=== PATIENT | male | born 1945 | race Caucasian/White ===

== ENCOUNTER 2016-05-31 20:24 | Inpatient (IN) | payer MEDICARE ==
[2016-05-31] MEDS ORDERED: SODIUM CHLORIDE 0.9% 1,000 ML IV STA ×2 (20:38)
[2016-05-31] MEDS ORDERED: IPRATROPIUM 0.5 MG/2.5 ML NEBU INHALATION STA (20:38)
[2016-05-31] MEDS ORDERED: methylPREDNISolone SOD SUCCI 125 MG/2 ML VIAL IV STA (20:38)
[2016-05-31] MEDS ORDERED: ALBUTEROL NEBULIZED 2.5 MG/3 ML INHALATION STA (20:38)
[2016-05-31] MEDS ORDERED: LORazepam 2 MG/ML SYRINGE IV STA (20:38)
--- NOTE | 2016-05-31 20:55 | ED ---
General Adult HPI - General Chief complaint: Shortness of Breath Stated complaint: ERIC coughing up blood Time Seen by Provider: 05/31/16 20:36 Source: patient, RN notes reviewed, old records reviewed Mode of arrival: wheelchair Limitations: no limitations - History of Present Illness Initial comments: This is a 8-year-old male the ER for evaluation. This patient presented here for evaluation of chest pain. Patient does have severe chest pain feels like prior heart attacks. Patient has strong cardiac history with diabetes hypertension or cholesterol. Nourse appears cough or congestion, no recent stressful history, no significant recent hospitalizations. Patient also complaining of difficulty breathing 3-4 days of difficulty breathing with cough , severe cough to the point is coughing blood, dizziness and weakness with ambulation - Related Data Home Medications Medication Instructions Recorded Confirmed Acetaminophen Tab [Tylenol Tab] 650 mg PO Q6H PRN 05/31/16 05/31/16 Albuterol Nebulized [Ventolin 2.5 mg INHALATION RT-Q6H PRN 05/31/16 05/31/16 Nebulized] Aspirin EC [Ecotrin Low Dose] 81 mg PO HS 05/31/16 05/31/16 Atorvastatin Calcium [Lipitor] 10 mg PO DAILY 05/31/16 05/31/16 Calcium Acetate [Phoslo] 667 mg PO TID-W/MEALS 05/31/16 05/31/16 DULoxetine HCL [Cymbalta] 60 mg PO DAILY 05/31/16 05/31/16 Doxercalciferol [Hectorol] 0.5 mcg PO HS 05/31/16 05/31/16 Finasteride [Proscar] 5 mg PO DAILY 05/31/16 05/31/16 Fluticasone/Salmeterol [Advair 1 puff INHALATION RT-BID 05/31/16 05/31/16 100-50 Diskus] Furosemide [Lasix] 40 mg PO BID 05/31/16 05/31/16 HYDROcodone/APAP 5-325MG [[place] 1 tab PO Q6HR PRN 05/31/16 05/31/16 5-325] Insuln Asp Prt/Insulin Aspart See Protocol SQ-PUMP CONTINUOUS 05/31/16 05/31/16 [NovoLOG MIX 70-30 VIAL] Latanoprost [Xalatan 0.005%] 1 drop LEFT EYE HS 05/31/16 05/31/16 Montelukast [Singulair] 10 mg PO HS 05/31/16 05/31/16 [place]-3 Acid Ethyl Esters [Lovaza] 1 gm PO BID 05/31/16 05/31/16 Tiotropium 18 Mcg/Puff [Spiriva] 1 cap INHALATION RT-DAILY PRN 05/31/16 05/31/16 amLODIPine [Norvasc] 10 mg PO DAILY 05/31/16 05/31/16 clonazePAM [KlonoPIN] 1 mg PO HS PRN 05/31/16 05/31/16 hydrALAZINE HCL 75 mg PO BID 05/31/16 05/31/16 Allergies Allergy/AdvReac Type Severity Reaction Status Date / Time Sulfa (Sulfonamide Allergy Rash/Hives Verified 05/31/16 21:38 Antibiotics) Review of Systems ROS Statement: Those systems with pertinent positive or pertinent negative responses have been documented in the HPI. ROS Other: All systems not noted in ROS Statement are negative. Past Medical History Past Medical History: COPD, Diabetes Mellitus, Hypertension, Renal Disease Additional Past Medical History / Comment(s): BPH, History of Any Multi-Drug Resistant Organisms: None Reported Past Surgical History: Heart Catheterization, Hernia Repair, Orthopedic Surgery Additional Past Surgical History / Comment(s): fistula 05/29 Past Psychological History: No Psychological Hx Reported Smoking Status: Former smoker Past Alcohol Use History: Occasional Past Drug Use History: None Reported General Exam Limitations: no limitations General appearance: alert, anxious, in distress Head exam: Present: atraumatic, normocephalic, normal inspection Eye exam: Present: normal appearance, PERRL, EOMI. Absent: scleral icterus, conjunctival injection, periorbital swelling ENT exam: Present: normal exam, mucous membranes moist Neck exam: Present: normal inspection. Absent: tenderness, meningismus, lymphadenopathy Respiratory exam: Present: normal lung sounds bilaterally, respiratory distress , wheezes, accessory muscle use, decreased breath sounds, prolonged expiratory. Absent: rales, rhonchi, stridor Cardiovascular Exam: Present: regular rate, normal rhythm, normal heart sounds. Absent: systolic murmur, diastolic murmur, rubs, gallop, clicks GI/Abdominal exam: Present: soft, normal bowel sounds. Absent: distended, tenderness, guarding, rebound, rigid Extremities exam: Present: normal inspection, full ROM, normal capillary refill. Absent: tenderness, pedal edema, joint swelling, calf tenderness Back exam: Present: normal inspection Neurological exam: Present: alert, oriented X3, CN II-XII intact Psychiatric exam: Present: normal affect, normal mood Skin exam: Present: warm, dry, intact, normal color. Absent: rash Course Vital Signs 05/31/16 05/31/16 05/31/16 20:27 21:00 21:19 Temperature 97.9 F 98.1 F Pulse Rate 96 88 90 Respiratory 24 22 Rate Blood Pressure 185/78 176/79 O2 Sat by Pulse 89 L 90 L Oximetry 05/31/16 05/31/16 05/31/16 21:36 22:05 22:19 Temperature Pulse Rate 88 90 90 Respiratory Rate Blood Pressure O2 Sat by Pulse Oximetry 05/31/16 05/31/16 22:35 23:00 Temperature 98.9 F Pulse Rate 91 90 Respiratory 24 22 Rate Blood Pressure 167/74 157/72 O2 Sat by Pulse 93 L 92 L Oximetry EKG Findings - EKG Comments: EKG Findings:: EKG shows sinus rhythm rate of 89, pr 218, QRS 108, QTc 455 Medical Decision Making - Medical Decision Making 71 male here for evaluation of multiple complaints, severe shortness of breath assumably on top of increased pleural effusion, renal failure, fluid overload, pneumonia. Patient be admitted for hypoxic respiratory failure and monitoring of cardio vascular collapse - Lab Data Result diagrams: 05/31/16 21:01 05/31/16 21:01 Lab Results 05/31/16 05/31/16 05/31/16 Range/Units 21:00 21:01 21:01 WBC 12.2 H (3.8-10.6) k/uL RBC 2.91 L (4.30-5.90) m/uL Hgb 9.0 L (13.0-17.5) gm/dL Hct 27.1 L (39.0-53.0) % MCV 93.2 (80.0-100.0) fL MCH 31.0 (25.0-35.0) pg MCHC 33.3 (31.0-37.0) g/dL RDW 15.0 (11.5-15.5) % Plt Count 223 (150-450) k/uL Neutrophils % 83 % Lymphocytes % 7 % Monocytes % 8 % Eosinophils % 1 % Basophils % 0 % Neutrophils # 10.1 H (1.3-7.7) k/uL Lymphocytes # 0.9 L (1.0-4.8) k/uL Monocytes # 0.9 (0-1.0) k/uL Eosinophils # 0.1 (0-0.7) k/uL Basophils # 0.0 (0-0.2) k/uL PT (9.0-12.0) sec INR (<1.1) APTT (22.0-30.0) sec D-Dimer (<0.60) mg/L FEU Sodium (137-145) mmol/L Potassium (3.5-5.1) mmol/L Chloride (98-107) mmol/L Carbon Dioxide (22-30) mmol/L Anion Gap mmol/L BUN (9-20) mg/dL Creatinine (0.66-1.25) mg/dL Est GFR (MDRD) Af Amer (>60 ml/min/1.73 sqM) Est GFR (MDRD) Non-Af (>60 ml/min/1.73 sqM) Glucose (74-99) mg/dL Plasma Lactic Acid Edmundo 0.9 (0.7-2.0) mmol/L Calcium (8.4-10.2) mg/dL Magnesium (1.6-2.3) mg/dL Total Bilirubin (0.2-1.3) mg/dL AST (17-59) U/L ALT (21-72) U/L Alkaline Phosphatase (38-126) U/L Total Creatine Kinase 138 (55-170) U/L CK-MB (CK-2) 7.6 H* (0.0-2.4) ng/mL CK-MB (CK-2) Rel Index 5.5 Troponin I 0.031 (0.000-0.034) ng/mL NT-Pro-B Natriuret Pep pg/mL Total Protein (6.3-8.2) g/dL Albumin (3.5-5.0) g/dL 05/31/16 05/31/16 05/31/16 Range/Units 21:01 21:01 21:01 WBC (3.8-10.6) k/uL RBC (4.30-5.90) m/uL Hgb (13.0-17.5) gm/dL Hct (39.0-53.0) % MCV (80.0-100.0) fL MCH (25.0-35.0) pg MCHC (31.0-37.0) g/dL RDW (11.5-15.5) % Plt Count (150-450) k/uL Neutrophils % % Lymphocytes % % Monocytes % % Eosinophils % % Basophils % % Neutrophils # (1.3-7.7) k/uL Lymphocytes # (1.0-4.8) k/uL Monocytes # (0-1.0) k/uL Eosinophils # (0-0.7) k/uL Basophils # (0-0.2) k/uL PT 10.3 (9.0-12.0) sec INR 1.0 (<1.1) APTT 22.3 (22.0-30.0) sec D-Dimer 2.28 H (<0.60) mg/L FEU Sodium 137 (137-145) mmol/L Potassium 5.5 H (3.5-5.1) mmol/L Chloride 105 (98-107) mmol/L Carbon Dioxide 13 L (22-30) mmol/L Anion Gap 19 mmol/L BUN 105 H* (9-20) mg/dL Creatinine 7.54 H* (0.66-1.25) mg/dL Est GFR (MDRD) Af Amer 9 (>60 ml/min/1.73 sqM) Est GFR (MDRD) Non-Af 7 (>60 ml/min/1.73 sqM) Glucose 239 H (74-99) mg/dL Plasma Lactic Acid Edmundo (0.7-2.0) mmol/L Calcium 8.6 (8.4-10.2) mg/dL Magnesium 1.6 (1.6-2.3) mg/dL Total Bilirubin 0.5 (0.2-1.3) mg/dL AST 36 (17-59) U/L ALT 30 (21-72) U/L Alkaline Phosphatase 108 (38-126) U/L Total Creatine Kinase (55-170) U/L CK-MB (CK-2) (0.0-2.4) ng/mL CK-MB (CK-2) Rel Index Troponin I (0.000-0.034) ng/mL NT-Pro-B Natriuret Pep 4150 pg/mL Total Protein 5.9 L (6.3-8.2) g/dL Albumin 3.5 (3.5-5.0) g/dL - Radiology Data Radiology results: report reviewed (Chest x-ray tooth 2 view does show positivepleural fusion, right-sided pleural effusion, left-sided infiltrate, pulmonary edema.), image reviewed Critical Care Time Critical Care Time: Yes Total Critical Care Time: 31 Disposition Clinical Impression: Acute pulmonary edema, ARF (acute renal failure), Acute exacerbation of chronic obstructive airways disease, Hypoxia, Pneumonia, Pleural effusion, right Disposition: ADMITTED IP TO THIS HOSP Condition: Fair
[2016-05-31] MEDS ORDERED: MORPHINE SULFATE 4 MG/ML SYRINGE IVP STA (20:59)
[2016-05-31 21:16] LABS: Basophils % (A) 0 %; CH 30.7; CHCM 33.1; Eosinophils # (A) 0.1 k/uL (0-0.7); Eosinophils % (A) 1 %; HCT 27.1 % (39.0-53.0); HDW 2.83; Luc # (Auto) 0.16; Luc % (Auto) 1; Lymphocytes # (A) 0.9 k/uL (1.0-4.8); Lymphocytes % (A) 7 %; MCHC 33.3 g/dL (31.0-37.0); MCV 93.2 fL (80.0-100.0); Mean Platelet Volume 7.7; Monocytes # (A) 0.9 k/uL (0-1.0); Monocytes % (A) 8 %; Neutrophils # (A) 10.1 k/uL (1.3-7.7); Neutrophils % (A) 83 %; RBC 2.91 m/uL (4.30-5.90); WBC 12.2 k/uL (3.8-10.6); WBC (Perox) 13.17
[2016-05-31 21:25] LABS: Calcium 8.6 mg/dL (8.4-10.2); Magnesium 1.6 mg/dL (1.6-2.3); Potassium 5.5 mmol/L (3.5-5.1); Total Bilirubin 0.5 mg/dL (0.2-1.3); Total Protein 5.9 g/dL (6.3-8.2)
[2016-05-31 21:37] LABS: Partial Thromboplastin Time 22.3 sec (22.0-30.0); Prothrombin Time 10.3 sec (9.0-12.0)
[2016-05-31] MEDS ORDERED: PNEUMONIA PROTOCOL UTILIZED 1 EACH MISC PO PRN (21:40)
[2016-05-31 21:51] LABS: Troponin I 0.031 ng/mL (0.000-0.034)
[2016-05-31 21:55] LABS: Creatine Kinase MB 7.6 ng/mL (0.0-2.4)
--- NOTE | 2016-05-31 22:39 | XR ---
EXAMINATION TYPE: XR chest 2V DATE OF EXAM: 05/31/2016 10:27 PM COMPARISON: 04/27/2016 HISTORY: Difficulty breathing TECHNIQUE: Frontal and lateral views of the chest are obtained. FINDINGS: There is linear consolidation and atelectasis at the right lung base. Heart appears enlarg ed. There is no gross heart failure. There is blunting of right costophrenic angle. There are chest l devon. IMPRESSION: There is combined pleural fluid consolidation and atelectasis in the right lower lobe th at is new compared to last exam. No gross heart failure. There is probably a new minimal infiltrate a t the left lung base.
[2016-05-31] MEDS ORDERED: IPRATROPIUM-ALBUTEROL 3 ML NEB INHALATION PRN (23:34)
[2016-05-31] MEDS ORDERED: PIPERACILLIN-TAZOBACTAM 3.375 GM in DEXTROSE/WATER 1 50ML.BAG IVPB STA (23:34)
[2016-05-31] MEDS ORDERED: LEVOFLOXACIN 750MG-D5W PMX 750 MG in DEXTROSE/WATER 1 150ML.BAG IVPB STA (23:34)
[2016-06-01] MEDS: SODIUM CHLORIDE 0.9% 1,000 ML IV SCH ×3 (00:17→14:03)
[2016-06-01 00:43] VITALS: BMI 31.8
[2016-06-01 06:40] LABS: Glucose,Whole Blood 247 mg/dL (75-99)
[2016-06-01] MEDS: PIPERACILLIN-TAZOBACTAM 3.375 GM in DEXTROSE/WATER 1 50ML.BAG IVPB SCH ×2 (07:55→15:56)
[2016-06-01 08:57] LABS: Glucose,Whole Blood 293 mg/dL (75-99)
[2016-06-01] MEDS ORDERED: ACETAMINOPHEN TAB 325 MG TAB PO PRN (09:07)
[2016-06-01] MEDS ORDERED: clonazePAM 1 MG TAB PO PRN (09:07)
[2016-06-01] MEDS ORDERED: TIOTROPIUM 18 MCG/PUFF INHALER INHALATION PRN (09:07)
[2016-06-01] MEDS ORDERED: hydrALAZINE HCL 25 MG TAB PO SCH (09:15)
[2016-06-01] MEDS ORDERED: INSPUCOR MISCELLANE PRN (09:16)
[2016-06-01] MEDS ORDERED: INSULIN PUMP TARGET GLUCOSE 1 EACH MISC MISCELLANE PRN (09:16)
[2016-06-01] MEDS ORDERED: INSULIN PUMP BASAL RATES 1 EACH MISC MISCELLANE PRN (09:16)
[2016-06-01] MEDS ORDERED: INSULIN PUMP ACTIVE INSULIN 1 EACH MISC MISCELLANE PRN (09:16)
[2016-06-01] MEDS ORDERED: INSULIN LISPRO (humaLOG) 300 UNIT/3 ML VIAL SQ PRN (09:16)
[2016-06-01] MEDS: IPRATROPIUM-ALBUTEROL 3 ML NEB INHALATION SCH ×4 (09:23→20:20)
[2016-06-01] MEDS: INSULIN LISPRO (humaLOG) 300 UNIT/3 ML VIAL SQ SCH ×4 (09:36→22:28)
[2016-06-01 10:43] LABS: Glucose,Whole Blood 259 mg/dL (75-99)
[2016-06-01 11:45] LABS: Glucose,Whole Blood 248 mg/dL (75-99)
[2016-06-01] MEDS: CALCIUM ACETATE 667 MG CAP PO SCH ×2 (12:27→17:10)
[2016-06-01] MEDS: amLODIPine 10 MG TAB PO SCH (12:28)
[2016-06-01] MEDS ORDERED: INSULIN PUMP MEAL BOLUS 1 UNIT MISC MISCELLANE SCH (12:30)
--- NOTE | 2016-06-01 13:43 | XR ---
EXAMINATION TYPE: XR chest 2V DATE OF EXAM: 06/01/2016 1:38 PM COMPARISON: Shortness of breath HISTORY: 05/31/2016 FINDINGS: Heart is enlarged and there are subsegmental consolidation bilaterally with tiny effusion. Calcified lymph nodes in the hilum noted. Biapical pleural thickening noted. No overt failure. IMPRESSION: 1. Persistent bilateral lower lobe infiltrate and small effusion which demonstrates mild improvement compared to the prior exam.
[2016-06-01 13:59] LABS: Hemoglobin A1C 8.3 % (4.2-6.1)
[2016-06-01] MEDS: methylPREDNISolone SOD SUCCI 40 MG/ML 1 ML VIAL IV SCH ×2 (14:02→17:44)
--- NOTE | 2016-06-01 14:33 | FL ---
EXAMINATION TYPE: FL sniff test without CXR DATE OF EXAM: 06/01/2016 2:27 PM COMPARISON: NONE HISTORY: Elevated right hemidiaphragm FINDINGS: A total of 29 seconds of fluoroscopic time was utilized during the procedure and there wa s paradoxical movement upon inspiration and expiration of the diaphragm with no diagnostic evidence o f diaphragmatic paresis. IMPRESSION: 1. There is normal movement of the diaphragm upon inspiration and expiration.
--- NOTE | 2016-06-01 15:01 | CT ---
EXAMINATION TYPE: CT chest wo con DATE OF EXAM: 06/01/2016 2:40 PM COMPARISON: NONE HISTORY: 71-year-old male having trouble breathing, elevated right hemidiaphragm versus effusion. TECHNIQUE: Contiguous axial scanning of the without IV contrast. Coronal and sagittal reconstructions performed. CT DLP: 862 mGycm Automated exposure control for dose reduction was used. FINDINGS: The heart is upper limits of normal in size without pericardial effusion. Coronary vessel calcificati ons are present in remarkable for coronary artery disease. Aorta is normal caliber with conventional arch vessel branching anatomy. Scattered prominent but nonenlarged mediastinal lymph nodes measuring up to 9 mm in the right paratra cheal region and 1.4 cm in the subcarinal region. Calcified left hilar lymph nodes compatible with pr ior granulomatous disease. There are small right greater than left pleural effusions with prominent adjacent atelectasis and rashad e consolidation in the lower lobes as well. Calcified granuloma at the left base. No septal thickening. Slight elevation of the right hemidiaphragm. 5 mm pulmonary nodule right mid lung axial image 34 and 5 mm pulmonary nodule at the right base, axia l image 42. Visualized upper abdomen shows numerous calcified granulomas in the spleen and layering calculi in a nondistended gallbladder. Bones: Endplate spondylosis within the mid to lower thoracic spine. No osseous destructive process. IMPRESSION: 1. SMALL RIGHT GREATER THAN LEFT PLEURAL EFFUSIONS WITH PROMINENT ADJACENT ATELECTASIS AND/OR CONSOLI DATION. INFECTIOUS OR ASPIRATION PNEUMONITIS IS IN THE DIFFERENTIAL AND CLINICAL CORRELATION RECOMMEN DED. 2. A COUPLE 5 MM PULMONARY NODULES ON THE RIGHT. RECOMMEND 6, 12, 24 MONTH FOLLOW-UP EXAMS TO ENSURE STABILITY.
[2016-06-01 15:02] LABS: Glucose,Whole Blood 256 mg/dL (75-99)
[2016-06-01] MEDS ORDERED: INSULIN DETEMIR 100 UNIT/ML 10 ML VIAL SQ STA (15:09)
--- NOTE | 2016-06-01 15:11 | CONS ---
DATE OF CONSULTATION: 06/01/2016 HISTORY OF PRESENT ILLNESS: The patient is a 71-year-old male who is well known to our practice. The patient has end-stage renal disease, did have AV fistula put in 3 days ago on Saturday at [facility]. He said he did fine and was discharged home and since then he started to experience worsening shortness of breath, started to actually cough up sputum that was mixed with blood. According to his , he sounded bubbly. The patient had Vicodin for pain, which he stopped because he felt like it was making him loopy. Subsequently, patient came to the emergency room and did have a chest x-ray done, which does show some fluid overload and possible pneumonia and the patient was admitted for further evaluation and treatment. PAST MEDICAL HISTORY: Positive for hypertension, high cholesterol, diabetes mellitus, chronic obstructive pulmonary disease, end-stage renal disease, and BPH. PAST SURGICAL HISTORY: Positive for AV fistula, which was put in 3 days ago at [facility] to start hemodialysis, history of heart cath, hernia repair and orthopedic surgery on his right knee bursa area years ago. ALLERGIES INCLUDE SULFA. Medications the patient takes at home include: 1. Hydralazine 75 mg p.o. b.i.d. 2. Klonopin 1 mg p.o. q.h.s. p.r.n. 3. Norvasc 10 mg p.o. daily. 4. Spiriva 1 capsule inhaled daily p.r.n. 5. Lovaza 1 gram p.o. b.i.d. 6. Singulair 10 mg p.o. q.h.s. 7. Xalatan one drop in his left eye q.h.s. 8. NovoLog which patient had infused via insulin pump. 9. Hydrocodone 5/325, 1 tab p.o. every 6 hours p.r.n. 10. Lasix 40 mg p.o. b.i.d. 11. Advair 100/50, 1 puff b.i.d. 12. Proscar 5 mg p.o. daily. 13. Hectorol 0.5 mg p.o. q.h.s. 14. Cymbalta 60 mg p.o. daily. 15. PhosLo 667 mg p.o. t.i.d. with meals. 16. Lipitor 10 mg p.o. daily. 17. Ecotrin low dose 81 mg p.o. q.h.s. 18. Albuterol via nebulizer q.6 hours p.r.n. 19. Tylenol 650 mg p.o. q.6 hours p.r.n. SOCIAL HISTORY: The patient does have a history of smoking for 20+ years; quit 20 years ago. Drinks very little, almost no alcohol. Denies any illicit drug use. FAMILY HISTORY: Mother at the age of 96 with diabetes mellitus and heart problems. Father at the age of 76 from diabetes mellitus and heart problems. REVIEW OF SYSTEMS: GENERAL: Positive for fever and chills. HEENT: Negative for any headaches, dizziness or lightheadedness. Denies any acute visual changes. Denies any difficulty hearing. Denies any recent nosebleeds. Does complain of a sore throat. Denies any difficulty swallowing. RESPIRATORY: Positive for worsening shortness of breath with productive cough with hemoptysis. CARDIOVASCULAR: Negative for any chest pain or palpitations. GI: Negative for abdominal pain, nausea, vomiting, diarrhea or constipation. : Negative for dysuria or hematuria. The patient complains of frequent urination. ENDOCRINE: Positive for diabetes mellitus, negative for any thyroid disease. MUSCULOSKELETAL: Positive for arthritis. NEUROLOGIC: Negative for any seizures, numbness or tingling to the extremities. The patient denies neuropathy. PSYCHIATRIC: Positive for anxiety. PHYSICAL EXAMINATION: GENERAL: A pleasant 71-year-old male who is seen lying in bed, is awake and alert, is clearly short of breath. VITAL SIGNS: Temp is 99.1, heart rate is 88, respiratory rate is 20, blood pressure is 194/77, oxygen saturation 91% on 3 L O2 via nasal cannula. HEENT: Head is normocephalic, atraumatic. Pupils: Left pupil slightly bigger than the right. The patient has had laser surgery and cataract removal and previous eye surgeries. Ears and nose, no discharge is noted. Mouth: Moist mucous membranes. Mallampati is class IV. NECK: Short, thick, supple. Trachea is midline. HEART: S1 and S2 are heard. Not tachycardic. LUNGS: With decreased breath sounds, more so to the bilateral bases. ABDOMEN: Soft. Bowel sounds are heard, obese. EXTREMITIES: No edema to the lower extremities. The upper left extremity does have a dressing and does have some redness, bruising versus inflammation where the AV fistula was placed. NEUROLOGIC: The patient is awake, alert, oriented. LABS: White count is 12.2, hemoglobin is 9.0, hematocrit 27.1 with 223,000 platelets. PT is 10.3. INR is 1.0, PTT is 22.3. D-dimer is 2.28. Sodium is 137, potassium 5.5, chloride 105, CO2 is 13, anion gap is 19, BUN is 105, creatinine is 7.54. Glucose 239, hemoglobin A1c is 8.3. Venous lactic acid is 0.9. Calcium is 8.6. Magnesium is 1.6. Total bilirubin 0.5, AST is 36, ALT is 30, alk phos is 108. Total CK is 138, MB is 7.6, relative index 5.5. Troponin 0.031. BNP is 4150. Total protein 5.9. Albumin is 3.5. IMAGING: Chest x-ray shows combined pleural fluid consolidation and atelectasis in the right lower lobe that is now new compared to last examination. No gross heart failure. There is probably a new minimal infiltrate at the left lung base. A repeat chest x-ray this a.m. shows persistent bilateral lower lobe infiltrate and small effusion which demonstrates mild improvement compared to the prior exam. IMPRESSION: 1. Hypoxic respiratory failure. 2. Acute exacerbation of congestive heart failure. 3. Possible elevated right hemidiaphragm. 4. Acute renal failure with metabolic acidosis. 5. Diabetes mellitus. 6. Possible left lower lobe pneumonia. PLAN: Agree with current medications which have been reviewed. Will change the p.o. Lasix to IV. We will stop the IV fluids. Will check sniff test for further evaluation of the right hemidiaphragm as well as a CT of the chest with no contrast. Will stop the Symbicort and add Pulmicort 0.5 mg via nebulizer b.i.d. Will add GI and DVT prophylaxis. Continue the bronchodilators and nephrology is on consult for further evaluation of need for hemodialysis. The patient is also going to be seen by Infectious Disease. We will continue to follow the patient closely with you, making further changes as necessary. Thank you for the consultation.
[2016-06-01] MEDS ORDERED: SODIUM POLYSTYRENE SULFONATE 15 GM/60 ML BOTTLE PO STA (15:15)
[2016-06-01] MEDS ORDERED: INSULIN LISPRO (humaLOG) 300 UNIT/3 ML VIAL SQ ONE (15:18)
[2016-06-01] MEDS: PANTOPRAZOLE 40 MG TABLET PO SCH (15:56)
[2016-06-01] MEDS: hydrALAZINE HCL 25 MG TAB PO SCH ×2 (15:57→22:29)
--- NOTE | 2016-06-01 15:57 | P.HPIM ---
History of Present Illness H&P Date: 06/01/16 Chief Complaint: Shortness of breath and difficulty breathing Is a pleasant 71-year-old gentleman patient of Dr. Wang, Dr. Alec Montes. He has underlying history of end-stage renal disease, COPD, hypertension, diabetes mellitus type 2 on insulin pump, obstructive sleep apnea depression admitted to the emergency room secondary to increasing difficulties of his breathing. He also has productive cough, fever, patient has had treatments in the past initially seen in the emergency room 12 5 was given an antibiotic for an upper respiratory tract infection, 2 weeks later patient was given another antibiotic by Dr. Wang and prednisone, he presented to the emergency room with hemoptysis, fever of 100.6, shortness of breath, and cough. He was recently admitted to [facility] for AV fistula creation by . was seen performed on the left arm. He seemed to be okay on the left arm however new redness was noted on the inferior and superior aspect off the incision sites this is not warm it could be fresh bruising and the marginalization He was seen in emergency room and evaluated and was found to have pneumonia, CAT scan imaging included on this study showing left pleural effusion, atelectasis, consolidation in left lower lobe, granuloma left base, 5 mm pulmonary nodule right mid lung 5 mm pulmonary nodule right Review of Systems Constitutional: Reports as per HPI, Reports fever, Reports lethargy, Reports malaise, Denies anorexia, Denies chills, Denies chronic headaches, Denies chronic pain, Denies daytime sleepiness, Denies fatigue, Denies night sweats, Denies poor appetite, Denies sweats, Denies weakness, Denies weight gain, Denies weight loss Ears, nose, mouth and throat: Reports as per HPI, Denies ant. neck pain, Denies bleeding gums, Denies dental pain, Denies dysphagia, Denies epistaxis, Denies headache, Denies hoarseness, Denies mouth pain, Denies nasal congestion, Denies nasal discharge, Denies neck fullness/pressure, Denies neck lump, Denies nose pain, Denies odynophagia, Denies post-nasal drip, Denies sinus pain, Denies sinus pressure, Denies swelling in mouth, Denies swelling in throat, Denies sore throat, Denies vertigo, Denies voice changes Cardiovascular: Reports as per HPI, Reports decreased exercise tolerance, Reports dyspnea on exertion, Reports shortness of breath, Denies chest pain, Denies claudication, Denies edema, Denies high blood pressure, Denies irregular heart beat, Denies leg edema, Denies lightheadedness, Denies orthopnea, Denies palpitations, Denies paroxysmal nocturnal dyspnea, Denies phlebitis, Denies rapid heart beat, Denies syncope Respiratory: Reports as per HPI, Reports congestion, Reports cough with sputum, Reports dyspnea, Reports hemoptysis, Reports pain on inspiration, Reports respiratory infections, Reports wheezing, Denies cough, Denies excessive sputum , Denies home oxygen, Denies pain, Denies pleurisy, Denies sleep apnea, Denies snoring Gastrointestinal: Reports as per HPI, Denies abdominal pain, Denies belching, Denies bloating, Denies BRBPR, Denies change in bowel habits, Denies coffee ground emesis, Denies constipation, Denies diarrhea, Denies dyspepsia, Denies early satiety, Denies excessive gas, Denies heartburn, Denies hematemesis, Denies hematochezia, Denies indigestion, Denies jaundice, Denies lactose intolerance, Denies loss of appetite, Denies melena, Denies nausea, Denies vomiting Genitourinary: Reports as per HPI, Denies decreased libido, Denies difficulties fathering child, Denies discharge, Denies dysuria, Denies erectile dysfunction, Denies flank pain, Denies genital pain, Denies genital sores, Denies hematuria, Denies impotence, Denies incontinence, Denies kidney stones, Denies nocturia, Denies polyuria, Denies testicular lump, Denies testicular pain, Denies urinary frequency, Denies urinary hesitancy, Denies urinary retention Musculoskeletal: Reports as per HPI, Denies arm numbness/tingling, Denies atrophy, Denies fractures, Denies frequent falls, Denies gait dysfunction, Denies hot joints, Denies leg numbness/tingling, Denies limitation of motion, Denies loss of height, Denies low back pain, Denies morning stiffness, Denies muscle cramps, Denies muscle weakness, Denies myalgias, Denies neck pain, Denies neck stiffness, Denies prior amputations, Denies redness of joints, Denies shooting arm pain, Denies shooting leg pain Integumentary: Reports as per HPI, Denies acne, Denies boils, Denies brittle nails, Denies change in hair/nails, Denies color changes, Denies darkening of skin, Denies depigmentation, Denies dryness, Denies foot/leg ulcers, Denies growths, Denies hirsutism, Denies lesions, Denies onychomycosis, Denies pruritus , Denies rash, Denies sores, Denies striae, Denies unusual bruising, Denies wounds Neurological: Reports as per HPI, Denies aphasia, Denies ataxia, Denies balance difficulties, Denies burning pain, Denies change in mentation, Denies change in smell/taste, Denies change in speech, Denies confusion, Denies convulsions, Denies double vision, Denies gait dysfunction, Denies head injury, Denies headaches, Denies hearing difficulties, Denies lack of coordination, Denies loss of vision, Denies memory loss, Denies migraines, Denies motor disturbance, Denies numbness, Denies paralysis, Denies paresthesias, Denies seizures, Denies sensory deficit, Denies spasticity, Denies syncope, Denies tic, Denies tingling , Denies transient paralysis, Denies tremors, Denies vertigo, Denies weakness, Denies visual changes Psychiatric: Reports as per HPI, Denies anhedonia, Denies anxiety, Denies anxiety attacks, Denies change in appetite, Denies change in libido, Denies change in sleep habits, Denies confusion, Denies depression, Denies difficulty concentrating, Denies disorientation, Denies hallucinations, Denies hopelessness , Denies hypersomnia, Denies insomnia, Denies irritability, Denies memory loss, Denies mood swings, Denies paranoia, Denies sadness/tearfulness, Denies sleep disturbances, Denies suicidal ideation Endocrine: Reports as per HPI, Denies cold intolerance, Denies deepening of the voice, Denies excessive sweating, Denies excessive thirst, Denies fatigue, Denies flushing, Denies heat intolerance, Denies high blood sugars, Denies increase in ring/shoe/hat size, Denies low blood sugars, Denies nocturia, Denies palpitations, Denies polydipsia, Denies polyphagia, Denies polyuria, Denies proptosis, Denies recent glucocorticoid use, Denies thyroid mass, Denies weight change Hematologic/Lymphatic: Reports as per HPI, Denies easy bleeding, Denies easy bruising, Denies lymphadenopathy, Denies lymphedema, Denies thrombophilia Allergic/Immunologic: Reports as per HPI, Denies allergic rhinitis, Denies anaphylaxis, Denies angioedema, Denies gluten intolerance, Denies persistent infections, Denies seasonal allergies, Denies urticaria, Denies wheezing Past Medical History Past Medical History: COPD, Diabetes Mellitus, Hypertension, Renal Disease Additional Past Medical History / Comment(s): BPH, History of Any Multi-Drug Resistant Organisms: None Reported Past Surgical History: Heart Catheterization, Hernia Repair, Orthopedic Surgery Additional Past Surgical History / Comment(s): fistula 05/29 AV fistula creation 05/29/2016 [facility] Past Psychological History: No Psychological Hx Reported Smoking Status: Former smoker Past Alcohol Use History: Occasional Past Drug Use History: None Reported - Past Family History Father History Unknown: Yes ( at 76 from myocardial infarction) Mother History Unknown: Yes (Disease in her 90s secondary to hypertension and cirrhosis ) Brother(s) History Unknown: Yes (One brother from cirrhosis 2 other brothers one with hypertension and heart disease) Daughter(s) History Unknown: Yes (No major medical problems) Medications and Allergies Home Medications Medication Instructions Recorded Confirmed Type Acetaminophen Tab [Tylenol Tab] 650 mg PO Q6H PRN 05/31/16 05/31/16 History Albuterol Nebulized [Ventolin 2.5 mg INHALATION RT-Q6H PRN 05/31/16 05/31/16 History Nebulized] Aspirin EC [Ecotrin Low Dose] 81 mg PO HS 05/31/16 05/31/16 History Atorvastatin Calcium [Lipitor] 10 mg PO DAILY 05/31/16 05/31/16 History Calcium Acetate [Phoslo] 667 mg PO TID-W/MEALS 05/31/16 05/31/16 History DULoxetine HCL [Cymbalta] 60 mg PO DAILY 05/31/16 05/31/16 History Doxercalciferol [Hectorol] 0.5 mcg PO HS 05/31/16 05/31/16 History Finasteride [Proscar] 5 mg PO DAILY 05/31/16 05/31/16 History Fluticasone/Salmeterol [Advair 1 puff INHALATION RT-BID 05/31/16 05/31/16 History 100-50 Diskus] Furosemide [Lasix] 40 mg PO BID 05/31/16 05/31/16 History HYDROcodone/APAP 5-325MG [[place] 1 tab PO Q6HR PRN 05/31/16 05/31/16 History 5-325] Insuln Asp Prt/Insulin Aspart See Protocol SQ-PUMP CONTINUOUS 05/31/16 05/31/16 History [NovoLOG MIX 70-30 VIAL] Latanoprost [Xalatan 0.005%] 1 drop LEFT EYE HS 05/31/16 05/31/16 History Montelukast [Singulair] 10 mg PO HS 05/31/16 05/31/16 History Huggins-3 Acid Ethyl Esters [Lovaza] 1 gm PO BID 05/31/16 05/31/16 History Tiotropium 18 Mcg/Puff [Spiriva] 1 cap INHALATION RT-DAILY PRN 05/31/16 History amLODIPine [Norvasc] 10 mg PO DAILY 05/31/16 05/31/16 History clonazePAM [KlonoPIN] 1 mg PO HS PRN 05/31/16 05/31/16 History hydrALAZINE HCL 75 mg PO BID 05/31/16 05/31/16 History Allergies Allergy/AdvReac Type Severity Reaction Status Date / Time Sulfa (Sulfonamide Allergy Rash/Hives Verified 05/31/16 21:38 Antibiotics) Physical Exam Vitals: Vital Signs Temp Pulse Pulse Resp BP BP Pulse Ox 06/01/16 13:45 88 06/01/16 13:30 92 20 06/01/16 12:00 99.1 F 90 20 194/77 91 L 06/01/16 09:39 92 06/01/16 09:23 92 06/01/16 08:00 100.6 F H 87 20 163/70 93 L 06/01/16 04:00 97.0 F L 87 18 174/82 93 L 05/31/16 23:59 78 94 L 05/31/16 23:00 90 22 157/72 92 L 05/31/16 22:50 97.3 F L 18 173/76 93 L 05/31/16 22:35 98.9 F 91 24 167/74 93 L 05/31/16 22:19 90 05/31/16 22:05 90 Intake and Output 06/01/16 06/01/16 06/01/16 06:59 14:59 22:59 Intake Total 440 Output Total 250 200 Balance -250 240 Intake: Oral 440 Output: Urine 250 200 Other: Voiding Method Toilet Toilet Urinal Urinal # Voids 1 Weight 114 kg - Constitutional General appearance: cooperative, no acute distress, obese - EENT Eyes: anicteric sclerae, EOMI, PERRLA, dentition normal, normal appearance ENT: hearing grossly normal, NA/AT, normal oropharynx - Neck Neck: no lymphadenopathy, normal ROM, no other, no rigidity, no stridor, no thyromegaly - Respiratory Respiratory: bilateral: CTA, negative: diminished, dullness, rales - Cardiovascular Rhythm: regular Heart sounds: normal: S1, S2 Abnormal Heart Sounds: no systolic murmur, no diastolic murmur, no rub, no S3 Gallop, no S4 Gallop, no click, no other - Gastrointestinal General gastrointestinal: normal bowel sounds, soft - Integumentary Integumentary: normal, normal turgor, rash (Left forearm has bruising or confluent petechia on the inferior and aspect of the antecubital region,) - Neurologic Neurologic: CNII-XII intact - Musculoskeletal Musculoskeletal: generalized weakness, strength equal bilaterally - Psychiatric Psychiatric: A&O x's 3, appropriate affect, intact judgment & insight Results CBC & Chem 7: 05/31/16 21:01 05/31/16 21:01 Labs: Abnormal Lab Results - Last 24 Hours (Table) 06/01/16 06/01/16 06/01/16 Range/Units 06:05 08:54 10:41 POC Glucose (mg/dL) 247 H 293 H 259 H (75-99) mg/dL 06/01/16 06/01/16 Range/Units 11:40 14:59 POC Glucose (mg/dL) 248 H 256 H (75-99) mg/dL Thrombosis Risk Factor Assmnt - DVT/VTE Prophylaxis DVT/VTE Prophylaxis: Pharmacologic Prophylaxis ordered, Mechanical Prophylaxis ordered - Choose All That Apply Each Factor Represents 1 point: Abnormal pulmonary function (COPD), Obesity ( BMI >25) Each Risk Factor Represents 2 Points: Age 61-74 years Thrombosis Risk Factor Assessment Total Risk Factor Score: 4 Thrombosis Risk Factor Assessment Level: Moderate Risk Assessment and Plan Plan: 1. Acute COPD exacerbation with right greater than left small pleural effusion , underlying atelectasis and consolidation infectious and aspiration pneumonitis is considered. Patient currently is receiving IV Zosyn and Levaquin with cultures from the blood as he did have recent AV graft fistula creation 2 days ago, also with blood cultures and sputum cultures, IV Lasix 80 mg every 12 hours consults were made with pulmonary 2. Febrile illness most likely secondary sepsis SIRS, underlying cellulitis cannot be ruled out from the left arm. This are demarcated for monitoring, patient currently is on IV Levaquin, influenza test will be obtained, consults were made with Dr. Londono infectious disease 3. COPD exacerbation patient would be given Solu-Medrol low dose at 40 mg every 6 hours patient would have difficulties in adjusting the transition to oral prednisone with his insulin coverage as he does have an insulin pump and had difficulties in adjusting for oral prednisone coverage at this time. She does have blood sugars sensor which we In place, the insulin pump would be suspended, patient's to continue on nebulized albuterol and Atrovent, Pulmicort 0.5 twice a day 3. Hypertensive cardio vascular disease increase hydralazine to 75 mg 3 times a day continue on amlodipine 10 mg daily 4. End-stage renal disease currently not requiring any renal replacement he is being transitioned to hemodialysis at the near future, he does have an AV fistula created 05/29/[address] Montes. Went he is anticipating donor kidney coming in from her daughter in the near future consults were made with Dr. Michael 5. Diabetes mellitus type 2 on insulin pump. Patient had difficulties in adjusting to the boluses that were required earlier today. It took him 10 minutes with a lot of errors pressing the button's to readjust his insulin. We' ll going to temporarily suspend his insulin pump in lieu off Levemir 26 units twice a day with Solu-Medrol scale. This can be transitioned this Saturday to his insulin pump and needs to stay at least 1 more day for the patient to accommodate insulin pump use for supplemental coverage. When dissipating oral prednisone will be started this Saturday at 40 mg or 50 mg daily. 0.5 mg Pulmicort was started to minimize systemic steroid use he normally requires 2.2-2.3 basal coverage through his insulin pump with radiation towards his pre-meal boluses 6. Asthma exacerbation not on any Xolair supplementation, continue on Singulair. He is on the above treatments also for COPD next 7. Depression stable 8. Obstructive sleep apnea on CPAP device 9. Anemia of chronic disease 10 Anxiety 11. Previous tobacco quit 25 years ago 12. BPH without lower tract symptomatology continue Proscar DVT prophylaxis with heparin and CRISTI choi SCDs GI prophylaxis pepcid
[2016-06-01] MEDS: HEPARIN SODIUM,PORCINE 5,000 UNIT/ML 1 ML VIAL SQ SCH (16:03)
--- NOTE | 2016-06-01 16:09 | CONS ---
DATE OF CONSULTATION: REASON FOR CONSULTATION: Renal failure. HISTORY OF PRESENT ILLNESS: The patient is a 71-year-old white male with history of CKD stage V, who was admitted to the hospital with complaints of shortness of breath. He was also coughing up blood, and at this time it is not clear if he had been vomiting blood as well. No ongoing chest pain at this time. Patient does have lower extremity edema. He recently had an AV fistula placed. Serum creatinine was at 7.5 mg/dL. Previous creatinine had been 6.0 on 04/27/2016. As outpatient patient had been doing fairly well and he had been stable with no complaints of nausea, vomiting, or loss of appetite. Therefore, initial plan was to wait until the fistula matures to start dialysis; however, with his current admission and evidence of fluid overload, then serum creatinine up to 7.5 mg/dL it is in the best interest of the patient to initiate renal replacement therapy this admission. Patient's is present at bedside. This is discussed with him and his and they are agreeable. PAST MEDICAL HISTORY: CKD stage V secondary to diabetic nephropathy and nephrosclerosis. COPD, BPH, hypertension, hypercholesterolemia, chronic kidney disease bone mineral disease. PAST SURGICAL HISTORY: Recent AV fistula by Dr. Montes, cardiac catheterization, hernia repair, right knee surgery. ALLERGIES INCLUDE SULFA. Medications at home prior to admission included hydralazine, Klonopin, Norvasc, Spiriva, Lovaza, Singulair, insulin, Lasix, Advair, Proscar, Hectorol, Cymbalta, PhosLo, Lipitor, albuterol, Ecotrin, Tylenol. SOCIAL HISTORY: Negative for active smoking. The patient is an ex-smoker. No history of drug abuse or alcohol abuse. REVIEW OF SYSTEMS: As per HPI. Other systems negative. On examination, the patient is comfortable, awake. He is not in any acute distress. He is mildly short of breath. Blood pressure is 194/77, heart rate 90 per minute. He is afebrile. Examination of the heart S1 and S2. Examination of the lungs: Bilateral breath sounds are heard. Decreased breath sounds in bases with basal crackles heard bilaterally. Abdomen is soft, nontender, obese, distended. Examination of lower extremities shows edema 1+ bilaterally with chronic skin changes. HAND CARVER exam is grossly intact. No asterixis are noted. Labs reveal sodium 137, potassium 5.5, BUN 105, serum creatinine 7.54, hemoglobin 9.0 g/dL. INR was 1.0, magnesium 1.6. ASSESSMENT: 1. End-stage renal disease. Will initiate renal replacement therapy this admission. Vascular surgery will be consulted. Perm-A-Cath will be placed and patient will receive his first treatment of hemodialysis tomorrow. He does have an AV fistula, which was placed about 3 days ago and he will need time for that to mature. 2. Fluid overload. Hep-Lock IV fluids and continue with the Lasix. We can increase that to 80 mg q.12 hours and will get some fluid off with his dialysis as well tomorrow. 3. Chronic kidney disease bone mineral disease, maintained on Hectorol and PhosLo, which we can continue. 4. Lung infiltrate and is being followed by Pulmonary. Patient is maintained on antibiotics for possible pneumonia; however, there is evidence of fluid overload and his infiltrates will likely improve with diuresis and ultrafiltration with dialysis. 5. Metabolic acidosis secondary to advanced renal failure. 6. Hyperkalemia secondary to advanced renal failure. PLAN: Continue empiric antibiotics, Hep-Lock IV fluids, proceed with Perm-A-Cath placement and hemodialysis with first treatment scheduled for tomorrow. I will increase the Lasix to 80 q.12 hours and repeat labs in a.m. Patient did get Kayexalate. Thank you for this consultation. Will continue to follow the patient with you during his hospitalization.
[2016-06-01 17:05] LABS: Glucose,Whole Blood 278 mg/dL (75-99)
--- NOTE | 2016-06-01 18:18 | CONS ---
DATE OF CONSULTATION: 06/01/2016 REASON FOR CONSULTATION: Pneumonia. HISTORY OF PRESENT ILLNESS: The patient is a 71-year-old male who recently did have a left arm AV fistula at [facility] about 3 days ago. The patient went home and was feeling fine; however, afterwards the patient started having hemoptysis, increasing shortness of breath and a congested cough. The patient denies significant fever or any chills. The patient denies significant chest pain. No nausea or vomiting and no diarrhea. With worsening symptoms, especially weakness and shortness of breath, the patient was brought into the [facility] ER, where the patient was evaluated by the ER physician. The patient did have a chest x-ray which shows evidence of combined pleural fluid consolidation and atelectasis in the right lower lobe. This is new compared to previous examination. This was followed by CT of the chest which showed evidence of small, right greater than left pleural effusion with prominent adjacent atelectasis and consolidation. The patient was started on Zosyn. ID was consulted for further recommendation regarding antibiotic therapy. REVIEW OF SYSTEMS: CONSTITUTIONAL: Positive for weakness. Some chills. EYES: No complaint. ENT: No complaint. RESPIRATORY: As per HPI. CARDIOVASCULAR: No complaint. GENITOURINARY: No complaint. GASTROINTESTINAL: No complaint. MUSCULOSKELETAL: No complaint. INTEGUMENTARY: No complaint. PSYCHOLOGICAL: No complaint. ENDOCRINE: No complaint. NEUROLOGIC: No complaint. PAST MEDICAL HISTORY: 1. Hypertension. 2. Hyperlipidemia. 3. COPD. 4. End-stage renal disease. 5. Benign prostatic hypertrophy. PAST SURGICAL HISTORY: 1. Recent left AV fistula. 2. History of hernia repair. 3. Right knee bursectomy. 4. Heart catheterization. SOCIAL HISTORY: Patient has about 20 pack-years of smoking; quit about 20 years ago. Denies drinking or drug use. FAMILY HISTORY: Mother at age of 96 with diabetes and heart problems. Father at age of 76 from diabetes and complications. ALLERGIES: SULFA. Medications currently include: 1. Tylenol. 2. [place]. 3. DuoNeb. 4. Norvasc. 5. Aspirin. 6. Lipitor. 7. Pulmicort. 8. PhosLo. 9. Klonopin. 10. Cymbalta. 11. Proscar. 12. Lasix. 13. Heparin. 14. Hydralazine. 15. Levemir. 16. Humalog. 17. Levofloxacin. 18. Solu-Medrol. 19. Piperacillin tazobactam. On examination, blood pressure is 169/80 with a pulse of 90, temperature 98.9. He is 94% on 3 L nasal cannula. General description is an elderly male lying in bed in no distress. No tachypnea or accessory muscle of respiration use. HEENT examination shows slight pallor. There is no scleral icterus. Oral mucous membrane is dry. NECK: Trachea is central. No thyromegaly. LUNGS: Unlabored breathing. Some coarse breath sounds at the base. No wheeze. HEART: S1, S2. Regular rate and rhythm. ABDOMEN: Soft. No tenderness. EXTREMITIES: No edema of the feet. SKIN EXAMINATION: No rash or mass palpable. Neurologically the patient is awake, alert, oriented x3. Mood and affect normal. LABS: BUN of 105, creatinine 7.54. Potassium is 5.5. Hemoglobin is 9, white count 12.2. Influenza PCR has been negative. Chest x-ray and CT as mentioned above. DIAGNOSTIC IMPRESSION AND PLAN: Patient admitted to hospital with increasing shortness of breath; did have a cough and some hemoptysis; now with evidence of right lower lobe pneumonia in a patient who has been in a hospital with question of community-acquired versus Gram-negative pathogen in a patient who does have end-stage renal disease with creatinine clearance of less than 20. PLAN: 1. Blood cultures x2 and sputum will be collected for Gram stain and culture and sensitivity. 2. Dose of Zosyn and Levaquin to be adjusted to his kidney function. 3. Will follow up on the clinical condition and cultures to further adjust medication if needed. Thank you for this consultation. Will follow this patient along with you. HASEEB
[2016-06-01] MEDS ORDERED: SYMBICORT 80-4.5 MCG INHALER INHALATION SCH (20:00)
[2016-06-01] MEDS: BUDESONIDE 0.5 MG/2 ML NEBU INHALATION SCH (20:20)
[2016-06-01] MEDS: FORMOTEROL FUMARATE 20 MCG/2 ML NEBU INHALATION SCH (20:20)
[2016-06-01] MEDS ORDERED: FUROSEMIDE 10 MG/ML 4 ML VIAL IV SCH (21:00)
[2016-06-01] MEDS ORDERED: FUROSEMIDE 40 MG TAB PO SCH (21:00)
[2016-06-01] MEDS ORDERED: INSULIN DETEMIR 100 UNIT/ML 10 ML VIAL SQ SCH ×2 (21:00→22:00)
[2016-06-01 21:13] LABS: Glucose,Whole Blood 375 mg/dL (75-99)
[2016-06-01] MEDS: ASPIRIN 81 MG CHEW PO SCH (22:25)
[2016-06-01] MEDS: DOXERCALCIFEROL 0.5 MCG CAP PO SCH (22:25)
[2016-06-01] MEDS: FAMOTIDINE 20 MG TAB PO SCH (22:25)
[2016-06-01] MEDS: FUROSEMIDE 10 MG/ML 10 ML VIAL IV SCH (22:26)
[2016-06-01] MEDS: MONTELUKAST 10 MG TAB PO SCH (22:27)
[2016-06-01] MEDS: LATANOPROST 0.005% OPHTH DROPS 2.5 ML BTL LEFT EYE SCH (22:27)
[2016-06-01] MEDS ORDERED: LEVOFLOXACIN 750MG-D5W PMX 750 MG in DEXTROSE/WATER 1 150ML.BAG IVPB SCH (23:00)
[2016-06-02] MEDS: HEPARIN SODIUM,PORCINE 5,000 UNIT/ML 1 ML VIAL SQ SCH ×3 (01:39→16:06)
[2016-06-02] MEDS: methylPREDNISolone SOD SUCCI 40 MG/ML 1 ML VIAL IV SCH ×4 (01:39→21:10)
[2016-06-02] MEDS: PIPERACILLIN-TAZOBACTAM 3.375 GM in DEXTROSE/WATER 1 50ML.BAG IVPB SCH ×2 (05:18→21:06)
[2016-06-02] MEDS ORDERED: LEVOFLOXACIN 750MG-D5W PMX 750 MG in DEXTROSE/WATER 1 150ML.BAG IVPB SCH (06:00)
[2016-06-02 06:24] LABS: Glucose,Whole Blood 412 mg/dL (75-99)
[2016-06-02] MEDS: FORMOTEROL FUMARATE 20 MCG/2 ML NEBU INHALATION SCH ×2 (06:54→20:13)
[2016-06-02] MEDS: BUDESONIDE 0.5 MG/2 ML NEBU INHALATION SCH ×2 (06:54→20:13)
[2016-06-02] MEDS: IPRATROPIUM-ALBUTEROL 3 ML NEB INHALATION SCH ×4 (06:54→20:13)
[2016-06-02 07:17] LABS: Basophils % (A) 0 %; CH 30.9; CHCM 31.3; Eosinophils % (A) 0 %; HCT 26.3 % (39.0-53.0); HDW 2.65; HGB 7.8 gm/dL (13.0-17.5); Hypochromasia Slight; Luc # (Auto) 0.05; Luc % (Auto) 0; Lymphocytes # (A) 0.3 k/uL (1.0-4.8); Lymphocytes % (A) 3 %; MCH 29.6 pg (25.0-35.0); MCHC 29.8 g/dL (31.0-37.0); Macrocytosis Slight; Mean Platelet Volume 9.6; Monocytes # (A) 0.5 k/uL (0-1.0); Monocytes % (A) 5 %; Neutrophils # (A) 9.9 k/uL (1.3-7.7); Neutrophils % (A) 92 %; RBC 2.64 m/uL (4.30-5.90); RDW 15.2 % (11.5-15.5); WBC 10.8 k/uL (3.8-10.6); WBC (Perox) 10.65
[2016-06-02 07:19] LABS: MCV 99.5 fL (80.0-100.0)
[2016-06-02 07:28] LABS: Calcium 9.1 mg/dL (8.4-10.2); Total Bilirubin 0.5 mg/dL (0.2-1.3); Total Protein 5.7 g/dL (6.3-8.2)
[2016-06-02] MEDS: CALCIUM ACETATE 667 MG CAP PO SCH ×3 (07:30→18:07)
[2016-06-02] MEDS: INSULIN LISPRO (humaLOG) 300 UNIT/3 ML VIAL SQ SCH ×3 (07:31→18:01)
[2016-06-02] MEDS: PANTOPRAZOLE 40 MG TABLET PO SCH (07:32)
[2016-06-02] MEDS ORDERED: HEPARIN SODIUM,PORCINE 5,000 UNIT/ML 1 ML VIAL ONE (08:00)
[2016-06-02] MEDS ORDERED: INSULIN REGULAR BOLUS (FROM DRIP BAG) IV ONE (08:29)
[2016-06-02] MEDS: amLODIPine 10 MG TAB PO SCH (08:40)
[2016-06-02] MEDS: hydrALAZINE HCL 25 MG TAB PO SCH ×3 (08:40→21:11)
[2016-06-02] MEDS: DULoxetine HCL 60 MG CAPSULE.DR PO SCH (08:40)
[2016-06-02] MEDS: FAMOTIDINE 20 MG TAB PO SCH (08:41)
[2016-06-02] MEDS: FINASTERIDE 5 MG TAB PO SCH (08:41)
[2016-06-02] MEDS: ATORVASTATIN 10 MG TAB PO SCH (08:42)
[2016-06-02] MEDS ORDERED: INSULIN REGULAR 100 UNIT in SODIUM CHLORIDE 0.9% 100 ML IV SCH (08:45)
--- NOTE | 2016-06-02 09:00 | P.PN ---
Subjective Patient is seen for follow-up for CKD stage V. He was admitted to the hospital with shortness of breath. He is also noted to have redness at the site of his recent AV fistula placement and the surgery was done about 3 days prior to her admission. In the meantime patient's renal function has deteriorated and he did have evidence of fluid overload therefore he scheduled for permacath placement and will receive his first hemodialysis treatment today. This morning patient is resting comfortably awaiting permacath placement. His blood sugar had been as high as 400 and he was has been started on insulin drip and. He wishes to use his insulin pump which will be started after the permacath was placed. Objective - Vital Signs Vital signs: Vital Signs Temp 98.2 F 06/02/16 00:00 Pulse 94 06/02/16 07:18 Resp 20 06/02/16 04:00 BP 185/73 06/02/16 04:00 Pulse Ox 92 L 06/02/16 04:00 Intake & Output 06/01/16 06/02/16 06/02/16 18:59 06:59 18:59 Intake Total 1490 Output Total 200 300 Balance 1290 -300 Weight 117 kg Intake: IV 810 Levofloxacin 750Mg-D5w 150 Pmx 750 mg In Dextrose/ Water 1 150ml.bag @ 100 mls/hr IVPB ONCE STA Rx#: [id number] Piperacillin-Tazobactam 3 100 .375 gm In Dextrose/Water 1 50ml.bag @ 12.5 mls/hr IVPB ONCE STA Rx#: [id number] Sodium Chloride 0.9% 1, 560 000 ml @ 10 mls/hr IV . Q24H [facility] Rx#:[id number] Oral 680 Output: Urine 200 300 Other: Voiding Method Toilet Toilet Urinal Urinal # Bowel Movements 1 - Exam On examination patient is comfortable awake alert oriented 3 is not in any acute distress blood pressure is 185/73 heart rate 94/m he is afebrile [place] examination of the heart S1 and S2 Examination lungs decreased sounds bases abdomen is soft obese exertion lower ex Mittie shows edema 1+ bilaterally and [place] [employer]ULT AND PEDIATRIC NEUROLOGIST exam is grossly intact patient is moving all 4 extremities. Examination of his left upper extremity shows erythema at the site of the AV fistula. A thrill and bruit is heard and felt. - Labs CBC & Chem 7: 06/02/16 06:28 06/02/16 06:28 Labs: Abnormal Lab Results - Last 24 Hours (Table) 06/01/16 06/01/16 06/01/16 Range/Units 08:54 10:41 11:40 WBC (3.8-10.6) k/uL RBC (4.30-5.90) m/uL Hgb (13.0-17.5) gm/dL Hct (39.0-53.0) % MCHC (31.0-37.0) g/dL Neutrophils # (1.3-7.7) k/uL Lymphocytes # (1.0-4.8) k/uL Sodium (137-145) mmol/L Potassium (3.5-5.1) mmol/L Carbon Dioxide (22-30) mmol/L BUN (9-20) mg/dL Creatinine (0.66-1.25) mg/dL Glucose (74-99) mg/dL POC Glucose (mg/dL) 293 H 259 H 248 H (75-99) mg/dL Phosphorus (2.5-4.5) mg/dL Total Protein (6.3-8.2) g/dL Albumin (3.5-5.0) g/dL 06/01/16 06/01/16 06/01/16 Range/Units 14:59 16:21 17:00 WBC (3.8-10.6) k/uL RBC (4.30-5.90) m/uL Hgb (13.0-17.5) gm/dL Hct (39.0-53.0) % MCHC (31.0-37.0) g/dL Neutrophils # (1.3-7.7) k/uL Lymphocytes # (1.0-4.8) k/uL Sodium (137-145) mmol/L Potassium (3.5-5.1) mmol/L Carbon Dioxide (22-30) mmol/L BUN (9-20) mg/dL Creatinine (0.66-1.25) mg/dL Glucose (74-99) mg/dL POC Glucose (mg/dL) 256 H 278 H (75-99) mg/dL Phosphorus 7.5 H (2.5-4.5) mg/dL Total Protein (6.3-8.2) g/dL Albumin (3.5-5.0) g/dL 06/01/16 06/02/16 06/02/16 Range/Units 21:11 06:22 06:28 WBC 10.8 H (3.8-10.6) k/uL RBC 2.64 L (4.30-5.90) m/uL Hgb 7.8 L (13.0-17.5) gm/dL Hct 26.3 L (39.0-53.0) % MCHC 29.8 L (31.0-37.0) g/dL Neutrophils # 9.9 H (1.3-7.7) k/uL Lymphocytes # 0.3 L (1.0-4.8) k/uL Sodium (137-145) mmol/L Potassium (3.5-5.1) mmol/L Carbon Dioxide (22-30) mmol/L BUN (9-20) mg/dL Creatinine (0.66-1.25) mg/dL Glucose (74-99) mg/dL POC Glucose (mg/dL) 375 H 412 H (75-99) mg/dL Phosphorus (2.5-4.5) mg/dL Total Protein (6.3-8.2) g/dL Albumin (3.5-5.0) g/dL 06/02/16 Range/Units 06:28 WBC (3.8-10.6) k/uL RBC (4.30-5.90) m/uL Hgb (13.0-17.5) gm/dL Hct (39.0-53.0) % MCHC (31.0-37.0) g/dL Neutrophils # (1.3-7.7) k/uL Lymphocytes # (1.0-4.8) k/uL Sodium 135 L (137-145) mmol/L Potassium 6.0 H (3.5-5.1) mmol/L Carbon Dioxide 10 L* (22-30) mmol/L BUN 124 H* (9-20) mg/dL Creatinine 8.48 H* (0.66-1.25) mg/dL Glucose 391 H (74-99) mg/dL POC Glucose (mg/dL) (75-99) mg/dL Phosphorus (2.5-4.5) mg/dL Total Protein 5.7 L (6.3-8.2) g/dL Albumin 3.2 L (3.5-5.0) g/dL Microbiology - Last 24 Hours (Table) 06/01/16 09:20 Gram Stain - Preliminary Sputum Assessment and Plan Plan: Assessment 1. Ckd stage V with progressive worsening of renal functions to be started on hemodialysis. Patient is scheduled for placement of permacath today and he will receive his first treatment of dialysis today. 2. An edema, cellulitis at the site of the AV fistula maintained on antibiotics 3. Fluid overload slightly improved continue with Lasix and we will increase UF with hemodialysis today. 4. Hyperkalemia expect improvement with dialysis today 5. Anemia with hemoglobin down to 7.8 g/dL today. No active bleeding noted at this time patient will be started on an aspirin iron studies will also be ordered. We will monitor his CBC and transfuse packed RBCs if hemoglobin is lower. Plan Hemodialysis today, increase UF as tolerated with hemodialysis today. Check stool for occult blood to rule out GI bleed. Check iron profile and start aranesp.
[2016-06-02] MEDS ORDERED: IV FLUID CONTINUATION 1,000 ML IV ONE (09:01)
[2016-06-02] MEDS ORDERED: SODIUM POLYSTYRENE SULFONATE 15 GM/60 ML BOTTLE PO STA (09:02)
--- NOTE | 2016-06-02 09:05 | P.PN ---
Progress Note - Text Patient's potassium was noted to be at 6 mg/L. This is most likely related to the hyperglycemia. Patient has been appropriately started on insulin drip this will help with the potassium. At this time he is stable to proceed with the surgery for the permacath. He will be dialyzed once he has the permacath placed. Dose of Kayexalate is also ordered if patient's dialysis is not until later on today. In the meantime we could give him a gram of calcium gluconate before he goes to the OR.
[2016-06-02] MEDS ORDERED: MIDAZOLAM 2 MG/2 ML VIAL IV ONE (09:12)
[2016-06-02] MEDS ORDERED: LIDOCAINE 2% INJ 20 MG/ML SQ ONE (09:14)
[2016-06-02 09:19] LABS: % Iron Saturation 45.8 % (20-50)
--- NOTE | 2016-06-02 10:05 | XR ---
EXAMINATION TYPE: XR chest 1V portable DATE OF EXAM: 06/02/2016 9:58 AM COMPARISON: 06/01/2016 HISTORY: Dialysis catheter insertion TECHNIQUE: Single frontal view of the chest is obtained. FINDINGS: There is a right-sided dialysis catheter the tip overlying the SVC. No sizable pneumothora x. There is improvement areas of consolidation involving the right lung base. No pneumothorax. IMPRESSION: 1. Catheter insertion with no postprocedural complication. 2. Improving right lower lobe consolidation.
[2016-06-02 10:24] LABS: Glucose,Whole Blood 397 mg/dL (75-99)
[2016-06-02] MEDS ORDERED: INSULIN LISPRO (humaLOG) 300 UNIT/3 ML VIAL SQ PRN (10:27)
[2016-06-02] MEDS ORDERED: DARBEPOETIN ALFA 40 MCG/0.4 ML SYRINGE SQ SCH (12:00)
[2016-06-02] MEDS ORDERED: INSULIN LISPRO (humaLOG) 300 UNIT/3 ML VIAL SQ SCH ×3 (12:30)
[2016-06-02] MEDS: FUROSEMIDE 10 MG/ML 10 ML VIAL IV SCH ×2 (12:45→21:06)
[2016-06-02 14:22] LABS: Hemoglobin A1C 8.1 % (4.2-6.1)
--- NOTE | 2016-06-02 14:23 | P.PN ---
Subjective Principal diagnosis: Shortness of breath Patient seen and examined with his at bedside. The patient had permacath placed yesterday. He has not yet had dialysis. The patient states that he does have some difficulty with swallowing. CT of the chest shows a slightly elevated right hemidiaphragm, atelectasis, pleural effusions, 5 mm pulmonary nodule in the right lung. Objective - Vital Signs Vital signs: Vital Signs Temp 97.7 F 06/02/16 08:00 Pulse 94 06/02/16 07:18 Resp 19 06/02/16 08:00 BP 194/86 06/02/16 08:00 Pulse Ox 94 L 06/02/16 08:00 Intake & Output 06/01/16 06/02/16 06/02/16 18:59 06:59 18:59 Intake Total 1490 250 Output Total 246 217 9443 Balance 1290 -300 -750 Weight 117 kg Intake: IV 810 Levofloxacin 750Mg-D5w 150 Pmx 750 mg In Dextrose/ Water 1 150ml.bag @ 100 mls/hr IVPB ONCE STA Rx#: [id number] Piperacillin-Tazobactam 3 100 .375 gm In Dextrose/Water 1 50ml.bag @ 12.5 mls/hr IVPB ONCE STA Rx#: [id number] Sodium Chloride 0.9% 1, 560 000 ml @ 10 mls/hr IV . Q24H [facility] Rx#:[id number] Intake, IV Titration 50 Amount Piperacillin-Tazobactam 3 50 .375 gm In Dextrose/Water 1 50ml.bag @ 12.5 mls/hr IVPB Q12H [facility] Rx#: [id number] Oral 680 200 Output: Urine 670 795 6222 Other: Voiding Method Toilet Toilet Urinal Urinal # Bowel Movements 1 - Exam Gen.: Patient is alert and oriented 3, he is morbidly obese Cardiovascular: Regular rate and rhythm, S1/S2 Lungs: Diminished breath sounds at the bilateral bases Abdomen: Soft nontender nondistended positive bowel sounds Extremities: Trace edema - Labs CBC & Chem 7: 06/02/16 06:28 06/02/16 06:28 Labs: Abnormal Lab Results - Last 24 Hours (Table) 06/01/16 06/01/16 06/01/16 Range/Units 14:59 16:21 17:00 WBC (3.8-10.6) k/uL RBC (4.30-5.90) m/uL Hgb (13.0-17.5) gm/dL Hct (39.0-53.0) % MCHC (31.0-37.0) g/dL Neutrophils # (1.3-7.7) k/uL Lymphocytes # (1.0-4.8) k/uL Sodium (137-145) mmol/L Potassium (3.5-5.1) mmol/L Carbon Dioxide (22-30) mmol/L BUN (9-20) mg/dL Creatinine (0.66-1.25) mg/dL Glucose (74-99) mg/dL POC Glucose (mg/dL) 256 H 278 H (75-99) mg/dL Phosphorus 7.5 H (2.5-4.5) mg/dL TIBC (261-462) ug/dL Total Protein (6.3-8.2) g/dL Albumin (3.5-5.0) g/dL 06/01/16 06/02/16 06/02/16 Range/Units 21:11 06:22 06:28 WBC 10.8 H (3.8-10.6) k/uL RBC 2.64 L (4.30-5.90) m/uL Hgb 7.8 L (13.0-17.5) gm/dL Hct 26.3 L (39.0-53.0) % MCHC 29.8 L (31.0-37.0) g/dL Neutrophils # 9.9 H (1.3-7.7) k/uL Lymphocytes # 0.3 L (1.0-4.8) k/uL Sodium (137-145) mmol/L Potassium (3.5-5.1) mmol/L Carbon Dioxide (22-30) mmol/L BUN (9-20) mg/dL Creatinine (0.66-1.25) mg/dL Glucose (74-99) mg/dL POC Glucose (mg/dL) 375 H 412 H (75-99) mg/dL Phosphorus (2.5-4.5) mg/dL TIBC (261-462) ug/dL Total Protein (6.3-8.2) g/dL Albumin (3.5-5.0) g/dL 06/02/16 06/02/16 06/02/16 Range/Units 06:28 06:28 10:21 WBC (3.8-10.6) k/uL RBC (4.30-5.90) m/uL Hgb (13.0-17.5) gm/dL Hct (39.0-53.0) % MCHC (31.0-37.0) g/dL Neutrophils # (1.3-7.7) k/uL Lymphocytes # (1.0-4.8) k/uL Sodium 135 L (137-145) mmol/L Potassium 6.0 H (3.5-5.1) mmol/L Carbon Dioxide 10 L* (22-30) mmol/L BUN 124 H* (9-20) mg/dL Creatinine 8.48 H* (0.66-1.25) mg/dL Glucose 391 H (74-99) mg/dL POC Glucose (mg/dL) 397 H (75-99) mg/dL Phosphorus (2.5-4.5) mg/dL TIBC 240 L (261-462) ug/dL Total Protein 5.7 L (6.3-8.2) g/dL Albumin 3.2 L (3.5-5.0) g/dL Microbiology - Last 24 Hours (Table) 06/01/16 09:20 Gram Stain - Preliminary Sputum Sputum Culture - Preliminary Assessment and Plan Plan: Acute on chronic hypoxic respiratory failure Acute exacerbation of CHF, fluid overload, unknown type Chronic kidney disease stage V, requiring hemodialysis, status post permacath placement Anion gap metabolic acidosis Bilateral atelectasis and pleural effusions Dysphasia 5 mm pulmonary nodule Anemia Diabetes mellitus type 2, with hyperglycemia, uncontrolled Hyponatremia Hyperkalemia Morbid obesity O2 to maintain saturation greater than equal to 88% Hemodialysis per nephrology with fluid removal Patient will need repeat CT of the chest in 6 months to follow pulmonary nodule Check echocardiogram Steroid taper Bronchodilators and Pulmicort/Perforomist Singulair Antibiotics per infectious disease Sniff test shows normal movement of the right hemidiaphragm GI and DVT prophylaxis
--- NOTE | 2016-06-02 15:19 | ECHOF ---
Referral Reason:chf dyspnea MEASUREMENTS -------- HEIGHT: 182.9 cm WEIGHT: 116.6 kg BP: 185/73 RVIDd: 3.4 cm (< 3.3) IVSd: 1.7 cm (0.6 - 1.1) LVIDd: 4.2 cm (3.9 - 5.3) LVPWd: 1.7 cm (0.6 - 1.1) IVSs: 2.3 cm LVIDs: 3.5 cm LVPWs: 2.1 cm LA Diam: 4.1 cm (2.7 - 3.8) LAESV Index (A-L): 38.13 ml/m Ao Diam: 4.0 cm (2.0 - 3.7) AV Cusp: 2.4 cm (1.5 - 2.6) MV EXCURSION: 16.226 mm (> 18.000) MV EF SLOPE: 115 mm/s (70 - 150) EPSS: 0.7 cm MV E Lázaro: 2.07 m/s MV DecT: 135 ms MV A Lázaro: 1.26 m/s MV E/A Ratio: 1.65 AV maxP.98 mmHg AV meanP.29 mmHg FINDINGS -------- Sinus rhythm. This was a technically adequate study. The left ventricular size is normal. There is severe concentric left ventricular hypertrophy. Overall left ventricular systolic function is normal with, an EF between 60 - 65 %. The right ventricle is mildly enlarged. LA is moderately dilated 34-39 ml/m2 The right atrium is normal in size. There is mild aortic valve sclerosis. Peak/mean gradient across the Aortic Valve is 12.98mmHg / 6.29mmHg. Mild mitral annular calcification present. Mild mitral regurgitation is present. Trace tricuspid regurgitation present. The pulmonic valve was not well visualized. The aortic root is dilated measuring 4.0cm. The inferior vena cava is mildly dilated. There is no pericardial effusion. CONCLUSIONS -------- 1. Sinus rhythm. 2. Mild mitral regurgitation is present. 3. Trace tricuspid regurgitation present. 4. The pulmonic valve was not well visualized. 5. The aortic root is dilated measuring 4.0cm. 6. The inferior vena cava is mildly dilated. 7. There is no pericardial effusion. 8. This was a technically adequate study. 9. There is severe concentric left ventricular hypertrophy. 10. Overall left ventricular systolic function is normal with, an EF between 60 - 65 %. 11. The right ventricle is mildly enlarged. 12. LA is moderately dilated 34-39 ml/m2 13. There is mild aortic valve sclerosis. 14. Peak/mean gradient across the Aortic Valve is 12.98mmHg / 6.29mmHg. 15. Mild mitral annular calcification present. WEAPONS SPECIALIST: Alison Ortez RDCS
[2016-06-02] MEDS: HYDROcodone/APAP 5-325MG 1 EACH TAB PO PRN (16:05)
[2016-06-02 16:56] LABS: Glucose,Whole Blood 147 mg/dL (75-99)
--- NOTE | 2016-06-02 17:02 | CONS ---
DATE OF CONSULTATION: This is a 71-year-old gentleman, I was consulted for placement of a dialysis catheter. Patient has a history of end stage renal disease, history of COPD, history of hypertension, diabetes mellitus, type II, on insulin pump, sleep apnea, and patient has difficulty in breathing. Patient has been treated with steroids and we have discussed about placement of dialysis catheter. Patient had a CT scan which showed pleural effusion on the left with consolidation in the left lower lobe. Past medical history of COPD, diabetes mellitus, hypertension, renal disease. SURGICAL HISTORY: Patient had a heart catheterization, hernia repair and orthopedic surgery. On examination, NECK: Normal. No lymph nodes palpable of the neck. Cardiovascular system ( ) are normal. Patient has crackle of the lung bases bilaterally. Brachial and radial pulses are present. Femorals are present. IMPRESSION: 1. Acute chronic obstructive pulmonary disease exacerbation. 2. Chronic renal failure. 3. History of hypertension. 4. History of diabetes mellitus. Plan is placement of dialysis catheter. Risks and complications discussed.
--- NOTE | 2016-06-02 17:49 | PN ---
Patient continued to be hemodynamically stable, just returned back from his PermCath placement. This morning, potassium was found to be 6.0 and glucose 430. They called me over the phone while I started the patient on insulin drip. The patient usually uses insulin pump at home and would like to use it again. Patient currently feeling cold after the procedure. Denying chest pain, shortness breath, nausea, vomiting, abdominal pain, dizziness or lightheadedness. PHYSICAL EXAMINATION: VITAL SIGNS: Temperature 97.7, heart rate of 94, respiratory rate 20, saturation is 92% on 2L nasal cannula. Blood pressure is 185/73. LUNGS: Diminished bilaterally. HEART: Normal S1, S2. ABDOMEN: Soft. No tenderness. Positive bowel sounds in all [address] in [address], dressing applied. No obvious bleeding. LOWER EXTREMITY: No edema. PSYCH: Seems to be appropriate. Answering questions and following commands. NEURO: No focal deficit. IMAGING AND LABS: White blood count 10.8 this morning, hemoglobin is 7.8, platelets within acceptable range. Sodium 135, potassium 6.0. Kidney function: BUN 124, creatinine 8.48. Glucose was found to be 412 as above. ASSESSMENT AND PLAN: 1. End-stage renal disease requiring hemodialysis, status post PermCath placement. PermCath to be used per Surgery recommendation. 2. Uncontrolled diabetes. Patient currently on insulin drip. I would like to switch patient to his insulin pump once he gets it from home and continue with the Accu-Chek every 6 hours. 3. Hyperkalemia. Dialysis per Nephrology. Discussed with Dr. Michael this morning, who felt that the elevation in potassium could be related to the hyperglycemia. Will control diabetes and follow up on potassium result. Patient will receive 2 g of calcium gluconate per my discussion with Dr. Michael. 4. Morbid obesity. 5. Shortness of breath. Will continue dialysis to optimize his fluid balance. 6. Right lower lobe pneumonia representing community-acquired pneumonia versus hospital-acquired pneumonia. We will continue Zosyn and Levaquin. Follow up on culture results and follow up with Infectious Disease recommendation. 7. Prognosis is still guarded
[2016-06-02 18:42] LABS: Basophils % (A) 0 %; CH 30.7; Eosinophils % (A) 0 %; HCT 22.5 % (39.0-53.0); HDW 2.68; HGB 7.3 gm/dL (13.0-17.5); Luc # (Auto) 0.25; Luc % (Auto) 2; Lymphocytes # (A) 0.6 k/uL (1.0-4.8); Lymphocytes % (A) 5 %; MCH 30.6 pg (25.0-35.0); MCHC 32.7 g/dL (31.0-37.0); MCV 93.5 fL (80.0-100.0); Mean Platelet Volume 8.6; Monocytes % (A) 7 %; Neutrophils # (A) 11.3 k/uL (1.3-7.7); Neutrophils % (A) 86 %; RDW 15.1 % (11.5-15.5); WBC 13.1 k/uL (3.8-10.6); WBC (Perox) 13.27
--- NOTE | 2016-06-02 20:31 | PCN ---
DATE OF PROCEDURE: PREOPERATIVE DIAGNOSIS: Acute on chronic renal failure. PROCEDURE: Ultrasound-guided 28 cm dialysis catheter, right internal jugular approach. DESCRIPTION OF PROCEDURE: Patient was brought to the laboratory equipment cleaner. The right side of the neck and chest was prepped and drapes were applied in usual sterile manner; 1% lidocaine infiltrated into the neck and chest area. Ultrasound-guided micropuncture introduced into the right internal jugular vein. Micropuncture guidewire was passed. A 4 Tamazight dilator was advanced on top of the guidewire. Then small incision was made on the anterior chest wall. A tunnel was created. Through the tunnel, we brought the dialysis catheter. A regular guidewire was passed, which was parked in the inferior vena cava under fluoroscopy control. Dilator and sheath were advanced on top of the guidewire. Through the sheath, we introduced the dialysis catheter. Tip of the catheter was at the superior vena cava and atrial junction. Flushed with heparin saline and Hep-locked. Dressing applied. The patient tolerated the procedure well. The patient is transferred to his room in satisfactory condition.
[2016-06-02 20:53] LABS: Glucose,Whole Blood 101 mg/dL (75-99)
[2016-06-02] MEDS ORDERED: INSULIN DETEMIR 100 UNIT/ML 10 ML VIAL SQ SCH (21:00)
[2016-06-02] MEDS: DOXERCALCIFEROL 0.5 MCG CAP PO SCH (21:06)
[2016-06-02] MEDS: ASPIRIN 81 MG CHEW PO SCH (21:06)
[2016-06-02] MEDS: LATANOPROST 0.005% OPHTH DROPS 2.5 ML BTL LEFT EYE SCH (21:08)
[2016-06-02] MEDS: MONTELUKAST 10 MG TAB PO SCH (21:10)
[2016-06-02] MEDS: SODIUM CHLORIDE 0.9% 1,000 ML IV SCH (21:11)
[2016-06-03] MEDS: HEPARIN SODIUM,PORCINE 5,000 UNIT/ML 1 ML VIAL SQ SCH ×3 (01:00→15:26)
[2016-06-03 03:25] LABS: Glucose,Whole Blood 275 mg/dL (75-99)
[2016-06-03 05:55] LABS: Glucose,Whole Blood 237 mg/dL (75-99)
[2016-06-03] MEDS: PIPERACILLIN-TAZOBACTAM 3.375 GM in DEXTROSE/WATER 1 50ML.BAG IVPB SCH ×2 (06:27→18:17)
[2016-06-03] MEDS: CALCIUM ACETATE 667 MG CAP PO SCH ×3 (06:27→18:17)
[2016-06-03 07:00] LABS: Calcium 8.7 mg/dL (8.4-10.2); Potassium 4.5 mmol/L (3.5-5.1); Total Bilirubin 0.5 mg/dL (0.2-1.3); Total Protein 4.8 g/dL (6.3-8.2)
[2016-06-03 07:18] LABS: Basophils % (A) 0 %; CH 30.8; CHCM 33.6; Eosinophils % (A) 0 %; HCT 20.7 % (39.0-53.0); HDW 2.71; Luc % (Auto) 1; Lymphocytes # (A) 0.4 k/uL (1.0-4.8); Lymphocytes % (A) 3 %; MCH 30.8 pg (25.0-35.0); MCHC 33.4 g/dL (31.0-37.0); MCV 92.1 fL (80.0-100.0); Mean Platelet Volume 8.2; Monocytes # (A) 0.7 k/uL (0-1.0); Monocytes % (A) 5 %; Neutrophils # (A) 11.4 k/uL (1.3-7.7); Neutrophils % (A) 90 %; RBC 2.25 m/uL (4.30-5.90); RDW 15.4 % (11.5-15.5); WBC 12.6 k/uL (3.8-10.6); WBC (Perox) 12.82
[2016-06-03 07:44] LABS: HGB 6.9 gm/dL (13.0-17.5)
[2016-06-03] MEDS: ATORVASTATIN 10 MG TAB PO SCH (08:05)
[2016-06-03] MEDS: DULoxetine HCL 60 MG CAPSULE.DR PO SCH (08:05)
[2016-06-03] MEDS: amLODIPine 10 MG TAB PO SCH (08:05)
[2016-06-03] MEDS: FINASTERIDE 5 MG TAB PO SCH (08:06)
[2016-06-03] MEDS: hydrALAZINE HCL 25 MG TAB PO SCH ×3 (08:06→21:30)
[2016-06-03] MEDS: FUROSEMIDE 10 MG/ML 10 ML VIAL IV SCH ×2 (08:06→21:30)
[2016-06-03] MEDS: methylPREDNISolone SOD SUCCI 40 MG/ML 1 ML VIAL IV SCH (08:07)
[2016-06-03] MEDS: BUDESONIDE 0.5 MG/2 ML NEBU INHALATION SCH ×2 (08:50→19:53)
[2016-06-03] MEDS: IPRATROPIUM-ALBUTEROL 3 ML NEB INHALATION SCH ×4 (08:50→19:53)
[2016-06-03] MEDS: FORMOTEROL FUMARATE 20 MCG/2 ML NEBU INHALATION SCH ×2 (08:50→19:53)
[2016-06-03 11:55] LABS: Glucose,Whole Blood 289 mg/dL (75-99)
[2016-06-03] MEDS: HYDROcodone/APAP 5-325MG 1 EACH TAB PO PRN (14:25)
--- NOTE | 2016-06-03 14:37 | PN ---
Patient is seen for follow-up for end-stage renal disease. He had his Perm-A-Cath placed yesterday and his first treatment of hemodialysis. Patient feeling much better. He had 2.5 liters of ultrafiltration. He is currently off of oxygen and feels significantly improved. Blood pressure is 164/69, heart rate 95 per minute. He is afebrile. Examination of the heart S1 and S2. Examination of the lungs: Bilateral breath sounds are heard. Abdomen is soft, nontender, obese. Examination of lower extremities shows decreased edema. Labs show sodium of 136, potassium 4.5, BUN 93, serum creatinine 6.4. Hemoglobin at 6.9 g/dL. ASSESSMENT: 1. End-stage renal disease, status post hemodialysis yesterday. We will arrange for dialysis again tomorrow. Patient has an AV fistula in his left arm which is not mature yet. He had Epoetin last week. 2. Anemia with no active bleeding noted. Stool for occult blood is pending. Transfuse 1 unit packed RBCs. 3. Volume overload, maintained on Lasix, status post dialysis with UF of about 2.5 liters with dialysis yesterday. Currently volume status has improved significantly. PLAN: Continue with IV Lasix. Transfuse 1 unit packed RBCs and repeat hemodialysis in a.m. We need to consult social welfare research worker for initiation of paperwork to set up outpatient dialysis.
--- NOTE | 2016-06-03 15:59 | PN ---
INTERVAL HISTORY: Patient tolerated the procedure well yesterday. No major events reported by nursing staff. Currently he is alert, awake, following commands. Patient is poor historian, but seems to be oriented to place and time. Physical examination revealed stable vital signs over the last 24 hours. LUNGS: Clear to auscultation bilaterally. HEART: Normal S1, S2. ABDOMEN: Soft. No tenderness. Positive bowel sounds in all 4 quadrants. Right upper chest catheter in place without obvious drainage. LOWER EXTREMITY: Stable edema. PSYCH: As above. IMAGING AND LABS: This morning, hemoglobin is 6.9, down from 7.3, white blood count down to 12.6 from 13.1. Chem-7 showed stable findings from prior examination with BUN 93, creatinine 6.40, glucose fluctuating between 101 and 217. AST, ALT within acceptable range. Total protein 4.8 and albumin is 2.8. Sputum culture and blood cultures are still pending, negative. ASSESSMENT AND PLAN: 1. Acute on chronic anemia, likely related to mild blood loss during the procedure and hemoglobin of 6.9. Patient is hemodynamically stable. I would like to transfuse patient, but perform that transfusion with dialysis to decrease his mortality. Patient will have dialysis scheduled for tomorrow and will transfuse 2 units of blood and monitor his vital signs closely. Patient currently is asymptomatic and denying dizziness or lightheadedness. 2. Acute on chronic kidney disease, status post PermCath placement on the right upper chest. Dialysis as mentioned Saturday, Saturday and Saturday per Nephrology recommendation. 3. Moderate protein-calorie malnutrition. Will encourage p.o. intake. Have dietitian evaluate the patient. 4. Leukocytosis, mild and stable. We will continue monitoring. 5. Obesity, stable. 6. Diabetes seems to be under better control. We will continue monitoring and adjust therapy for goals less than 180 during hospital stay. 7. Right lower lobe pneumonia. Will continue antibiotics and complete antibiotics on day 7. 8. Prognosis is still guarded
[2016-06-03 16:44] LABS: Glucose,Whole Blood 369 mg/dL (75-99)
[2016-06-03] MEDS: predniSONE 20 MG TAB PO SCH (18:17)
--- NOTE | 2016-06-03 20:00 | PN ---
DATE OF SERVICE: 06/03/2016. The patient is a 71-year-old male who came in with fluid overload had a recent AV fistula placed; however, that is not mature, did have a temporary catheter put in for hemodialysis dialysis which he had done yesterday. The patient hemoglobin is 6.9 today. He will receive a unit of packed red blood cells and the plan is for dialysis again tomorrow and then hopefully discharge home in 24 to 48 hours and he will follow-up with the federal district clerk and do outpatient hemodialysis. Patient is seen awake, alert, feels better today less short of breath. He is afebrile, hemodynamically stable, in no acute distress. On physical exam, vital signs, temp is 97.7, heart rate 92, respiratory rate 18, blood pressure is 162/70, O2 sats 94% on room air. HEENT: Head is normocephalic, atraumatic. NECK: Supple. Trachea is midline. LUNGS: Good air entry decreased at the bases. HEART: S1 and S2 are heard. Not tachycardic. ABDOMEN: Soft. Bowel sounds are heard. EXTREMITIES: With no edema. The patient does have a dressing to that left upper arm with fistula placement was and does have some bruising below the placement. LABS: White count is 12.6, hemoglobin 6.9, hematocrit 20.7, with 199,000 platelets. Sodium is 136, potassium is 4.5, chloride 103, CO2 is 19. Anion gap is 14, BUN is 93, creatinine 6.40. Glucose is 217, calcium is 8.7. Total bilirubin 0.5, AST is 23, ALT is 20, alk phos is 67, total protein 4.8. Albumin is 2.8. No new imaging to review. IMPRESSION: 1. Acute on chronic hypoxic respiratory failure. 2. Acute exacerbation of congestive heart failure, fluid overload. 3. Chronic kidney disease, stage V requiring hemodialysis, status post permacath placement. 4. Anion gap metabolic acidosis. 5. Bilateral atelectasis and pleural effusions. 6. Dysphagia. 7. 5 mm pulmonary nodule. 8. Anemia. 9. Diabetes mellitus type 2 with hyperglycemia. The patient has been restarted on his insulin pump. 10. Hyponatremia. 11. Hyperkalemia. Both of which have resolved. 12. Morbid obesity. PLAN: Continue O2 to maintain saturations greater than or equal to 88%. Continue hemodialysis per nephrology. The patient will need a repeat CT of the chest in 6 months to follow his pulmonary nodule. Continue steroid taper. Continue bronchodilators and aerosolized steroids. Continue ( ) inhibitors and antibiotics per infectious disease with GI and DVT prophylaxis and will follow the patient. The patient is to receive a unit of packed red blood cells today as well. Will continue to follow the patient closely with you, making further changes as necessary. I performed a history and physical examination of this patient and discussed the same with the dictator. I agree with the dictator's note. Any additional findings/opinions, etc. will be noted.
[2016-06-03 20:22] LABS: Glucose,Whole Blood 346 mg/dL (75-99)
[2016-06-03] MEDS: MONTELUKAST 10 MG TAB PO SCH (21:30)
[2016-06-03] MEDS: ASPIRIN 81 MG CHEW PO SCH (21:30)
[2016-06-03] MEDS: LATANOPROST 0.005% OPHTH DROPS 2.5 ML BTL LEFT EYE SCH (21:31)
[2016-06-03] MEDS: SODIUM CHLORIDE 0.9% 1,000 ML IV SCH (21:43)
[2016-06-03] MEDS ORDERED: LEVOFLOXACIN 500MG-D5W PMX 500 MG in DEXTROSE/WATER 1 100ML.BAG IVPB SCH (22:00)
[2016-06-04] MEDS: DOXERCALCIFEROL 0.5 MCG CAP PO SCH ×2 (00:42→22:01)
[2016-06-04] MEDS: HEPARIN SODIUM,PORCINE 5,000 UNIT/ML 1 ML VIAL SQ SCH ×4 (00:42→23:15)
[2016-06-04 03:29] LABS: Glucose,Whole Blood 140 mg/dL (75-99)
[2016-06-04] MEDS: PIPERACILLIN-TAZOBACTAM 3.375 GM in DEXTROSE/WATER 1 50ML.BAG IVPB SCH ×2 (05:12→17:51)
[2016-06-04 06:04] LABS: Glucose,Whole Blood 143 mg/dL (75-99)
[2016-06-04] MEDS: CALCIUM ACETATE 667 MG CAP PO SCH ×3 (06:42→16:51)
[2016-06-04 06:46] LABS: Basophils % (A) 0 %; CH 31.1; CHCM 33.9; Eosinophils % (A) 0 %; HCT 23.7 % (39.0-53.0); HDW 2.75; HGB 7.7 gm/dL (13.0-17.5); Luc # (Auto) 0.13; Luc % (Auto) 1; Lymphocytes # (A) 0.7 k/uL (1.0-4.8); Lymphocytes % (A) 5 %; MCHC 32.4 g/dL (31.0-37.0); MCV 92.4 fL (80.0-100.0); Mean Platelet Volume 9.1; Monocytes % (A) 7 %; Neutrophils # (A) 11.7 k/uL (1.3-7.7); Neutrophils % (A) 86 %; RBC 2.56 m/uL (4.30-5.90); RDW 15.3 % (11.5-15.5); WBC 13.6 k/uL (3.8-10.6); WBC (Perox) 14.43
[2016-06-04] MEDS ORDERED: HEPARIN SODIUM,PORCINE 5,000 UNIT/ML 1 ML VIAL ONE (08:00)
[2016-06-04] MEDS: IPRATROPIUM-ALBUTEROL 3 ML NEB INHALATION SCH ×4 (08:21→21:08)
[2016-06-04] MEDS: FORMOTEROL FUMARATE 20 MCG/2 ML NEBU INHALATION SCH ×2 (08:21→21:08)
[2016-06-04] MEDS: BUDESONIDE 0.5 MG/2 ML NEBU INHALATION SCH ×2 (08:21→21:08)
--- NOTE | 2016-06-04 08:51 | IR ---
EXAMINATION TYPE: IR cvc insert central tunneled DATE OF EXAM: 06/02/2016 9:40 AM COMPARISON: NONE HISTORY: Renal failure Fluoroscopy support supplied to the referring clinician. See dictated report from vascular surgery, 289 intraoperative C-arm images, 0.5 minutes fluoroscopy time
[2016-06-04] MEDS: amLODIPine 10 MG TAB PO SCH (09:21)
[2016-06-04] MEDS: FINASTERIDE 5 MG TAB PO SCH (09:21)
[2016-06-04] MEDS: ATORVASTATIN 10 MG TAB PO SCH (09:21)
[2016-06-04] MEDS: predniSONE 20 MG TAB PO SCH (09:21)
[2016-06-04] MEDS: DULoxetine HCL 60 MG CAPSULE.DR PO SCH (09:21)
[2016-06-04] MEDS: hydrALAZINE HCL 25 MG TAB PO SCH ×3 (09:22→22:02)
[2016-06-04] MEDS: FUROSEMIDE 10 MG/ML 10 ML VIAL IV SCH ×2 (09:22→22:01)
[2016-06-04 11:57] LABS: Glucose,Whole Blood 205 mg/dL (75-99)
--- NOTE | 2016-06-04 12:27 | DS ---
DATE OF ADMISSION: 05/31/2016 DATE OF DISCHARGE: ADMISSION DIAGNOSES: 1. Acute chronic obstructive pulmonary disease exacerbation with right greater than left small pleural effusion. 2. Consolidation representing pneumonia. 3. Febrile illness rule out sepsis. 4. Chronic obstructive pulmonary disease exacerbation. 5. Hypertension. 6. End-stage renal disease. 7. Diabetes type 2 with insulin pump. 8. Depression. 9. Obstructive sleep apnea on CPAP. 10. Anemia of chronic disease. 11. Anxiety. 12. History of tobacco dependency. 13. Benign prostatic hypertrophy. DISCHARGE DIAGNOSES: 1. End-stage renal disease, status post PermCath placement by Dr. Montes for dialysis. 2. Acute respiratory failure with underlying pneumonia and fluid overload status. 3. Anemia, acute on chronic, status post blood transfusion. CONSULTATION: 1. Dr. Vick from Infectious Disease. 2. Dr. Michael from Nephrology. 3. Dr. Montes from Vascular Surgery. 4. Dr. Palomo from Cardiology. 5. Dr. Warren from Pulmonary. HOSPITAL COURSE: This is a 71-year-old male with complicated past medical history who presented to the hospital with worsening shortness of breath. Patient's chest x-ray showed bilateral pleural effusion, right more than the left with possible underlying infiltrate. The patient presented with fever and early sepsis picture, was started on broad-spectrum antibiotics and improved dramatically. The patient felt to be in fluid overload status and failed to respond to Lasix 80 mg IV twice daily. Vascular Surgery was consulted for PermCath placement which was placed without any complication. The patient had AV fistula placed 3 days ago, but it is not mature and that is why PermCath was indicated. The patient received his first course of dialysis here during the hospital stay. He felt stable from the medical standpoint after being afebrile, tolerating his diet and functioning without assistance. Patient was discharged home with following recommendation. 1. Complete course of antibiotics as the patient received Levaquin and Zosyn during this hospital stay and was discharged on Levaquin 500 mg p.o. daily for 5 days. To follow up with primary care physician to resolution. 2. Acute on chronic anemia, which was felt to be related to chronic disease. The patient was instructed to follow up with his primary care physician regarding blood in stool and testing as patient insists to go home and said that he would like to do it outpatient. 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 3. Patient's hemodynamics continue to be stable with being afebrile, stable blood pressure and no dizziness, lightheadedness was reported. 4. Patient with fluid overload status informed about the need to continue with Lasix twice daily, to continue with dialysis per Dr. Michael's recommendation and follow up closely with her outpatient. 5. From cardiac standpoint, Dr. Palomo felt that the patient is stable from his standpoint and he can follow up on an as needed basis in the office. 6. Dr. Vick from infectious disease recommended continuation of antibiotics given the critical illness when the patient presented. The patient agreed and was discharged in stable condition. 7. Dr. Warren evaluated the patient and is recommending a tapering dose steroids. The patient aware that the steroids can increase his demand for insulin and patient said that he is comfortable using his insulin pump. DISCHARGE PROCESS: 35 minutes.
[2016-06-04 16:48] LABS: Glucose,Whole Blood 189 mg/dL (75-99)
[2016-06-04] MEDS: HYDROcodone/APAP 5-325MG 1 EACH TAB PO PRN (16:56)
[2016-06-04 21:00] LABS: Glucose,Whole Blood 205 mg/dL (75-99)
[2016-06-04] MEDS: ASPIRIN 81 MG CHEW PO SCH (22:00)
[2016-06-04] MEDS: MONTELUKAST 10 MG TAB PO SCH (22:01)
[2016-06-04] MEDS: LATANOPROST 0.005% OPHTH DROPS 2.5 ML BTL LEFT EYE SCH (22:01)
[2016-06-04] MEDS: SODIUM CHLORIDE 0.9% 1,000 ML IV SCH (22:02)
[2016-06-05 02:39] LABS: Glucose,Whole Blood 233 mg/dL (75-99)
[2016-06-05] MEDS: PIPERACILLIN-TAZOBACTAM 3.375 GM in DEXTROSE/WATER 1 50ML.BAG IVPB SCH (05:19)
[2016-06-05 06:12] LABS: Glucose,Whole Blood 187 mg/dL (75-99)
[2016-06-05] MEDS: CALCIUM ACETATE 667 MG CAP PO SCH ×2 (06:51→13:24)
[2016-06-05] MEDS: BUDESONIDE 0.5 MG/2 ML NEBU INHALATION SCH (07:25)
[2016-06-05] MEDS: FORMOTEROL FUMARATE 20 MCG/2 ML NEBU INHALATION SCH (07:26)
[2016-06-05] MEDS: IPRATROPIUM-ALBUTEROL 3 ML NEB INHALATION SCH ×3 (07:26→16:31)
[2016-06-05] MEDS: FUROSEMIDE 10 MG/ML 10 ML VIAL IV SCH (08:33)
[2016-06-05] MEDS: hydrALAZINE HCL 25 MG TAB PO SCH ×2 (08:35→15:43)
[2016-06-05] MEDS: FINASTERIDE 5 MG TAB PO SCH (08:36)
[2016-06-05] MEDS: ATORVASTATIN 10 MG TAB PO SCH (08:37)
[2016-06-05] MEDS: amLODIPine 10 MG TAB PO SCH (08:37)
[2016-06-05] MEDS: DULoxetine HCL 60 MG CAPSULE.DR PO SCH (08:37)
[2016-06-05] MEDS: HEPARIN SODIUM,PORCINE 5,000 UNIT/ML 1 ML VIAL SQ SCH ×2 (08:38→16:08)
[2016-06-05 09:04] LABS: Bilirubin, Delta 0.4 mg/dL (0.0-0.2); Calcium 8.4 mg/dL (8.4-10.2); Potassium 4.1 mmol/L (3.5-5.1); Total Bilirubin 0.5 mg/dL (0.2-1.3); Total Protein 5.1 g/dL (6.3-8.2)
[2016-06-05 09:23] LABS: CH 30.6; CHCM 33.2; HDW 2.64; HGB 7.5 gm/dL (13.0-17.5); MCH 30.1 pg (25.0-35.0); MCHC 32.5 g/dL (31.0-37.0); MCV 92.6 fL (80.0-100.0); Mean Platelet Volume 8.2; RBC 2.48 m/uL (4.30-5.90); RDW 15.1 % (11.5-15.5); WBC 13.6 k/uL (3.8-10.6)
--- NOTE | 2016-06-05 09:33 | PN ---
Patient is seen for a follow-up for end-stage renal disease. He is currently seen on hemodialysis, tolerating his treatment well. Blood pressure staying on the higher side at about 160 mmHg. On examination, heart rate has been about 98 to 100 per minute. He is afebrile. Examination of the heart S1 and S2. Examination of the lungs: Decreased breath sounds in bases. Abdomen is soft, obese, nontender. Examination of lower extremities shows decreased edema. Labs show sodium of 136 yesterday, potassium 4.5. Hemoglobin was at 6.9. Patient did receive 1 unit packed today. Hemoglobin is at 7.7 g/dL. ASSESSMENT: 1. End-stage renal disease on hemodialysis via IJ Perm-A-Cath the patient has a left arm AV fistula which is not mature yet. 2. Anemia. No active bleeding noted. Status post packed RBC transfusion. Maintain patient on Aranesp and he will be maintained on Masera and given iron if needed as outpatient.
[2016-06-05 10:21] LABS: Hepatitis B Surface Ag Index 0.04
[2016-06-05 10:27] LABS: Hepatitis B Core IgM Index 0.02
[2016-06-05 10:39] LABS: Hepatitis C Virus IgG Index 0.01
[2016-06-05 10:42] LABS: Hepatitis C Virus IgG Ab Negative (Negative)
[2016-06-05 12:29] LABS: Glucose,Whole Blood 229 mg/dL (75-99)
[2016-06-05] MEDS: HYDROcodone/APAP 5-325MG 1 EACH TAB PO PRN (13:34)
--- NOTE | 2016-06-05 13:56 | PN ---
DATE OF SERVICE: 06/04/2016 The patient is a 71-year-old male who was seen lying in bed, he is awake and alert. He is undergoing hemodialysis at this time, in no acute distress. The patient denies any cough. Denies any worsening shortness of breath, actually breathing has improved since the patient has undergone hemodialysis day before yesterday, undergoing again today and did receive a unit of packed red blood cells yesterday. On physical exam, vital signs, temp is 97.6, heart rate is 98, respiratory rate is 20, blood pressure is 151/85, oxygen saturation 95% on room air. HEENT: Head is normocephalic, atraumatic. NECK: Supple. Trachea is midline. LUNGS: Decreased at the bilateral bases. No clear rales or wheezes. HEART: S1 and S2 are heard. Not tachycardic. ABDOMEN: Soft, obese. Bowel sounds are heard. EXTREMITIES: With no edema. NEUROLOGIC: The patient is awake and alert. LABS: White count is 13.6, hemoglobin 7.7, hematocrit 23.7 with 211,000 platelets. Final sputum culture shows many normal respiratory ortiz. No new imaging to review. IMPRESSION: 1. Acute on chronic hypoxic respiratory failure. 2. Acute exacerbation of congestive heart failure, fluid overload. 3. Chronic kidney disease, stage V, requiring hemodialysis. 4. Anion gap metabolic acidosis. 5. Bilateral atelectasis and pleural effusions. 6. Dysphagia. 7. 5 mm pulmonary nodule. 8. Anemia. 9. Diabetes mellitus type 2 with hyperglycemia. 10. Morbid obesity. PLAN: Continue current medications which have been reviewed. Will stop the p.o. prednisone as the patient has no wheezing and respiratory status has improved. The patient is diabetic on an insulin pump. Continue hemodialysis per nephrology. The patient will need a repeat CT of the chest in 6 months to follow up on the pulmonary nodule. He is seen in the pulmonary clinic. Continue bronchodilators and aerosolized steroids with GI and DVT prophylaxis. Agree with discharge home when hemodialysis arrangements have been made. Will follow patient on an outpatient basis. I performed a history and physical examination of this patient and discussed the same with the dictator. I agree with the dictator's note. Any additional findings/opinions, etc. will be noted.
[2016-06-05 16:09] VITALS: BP 162/74; RESP 18; TEMP 96.8
[2016-06-05 16:34] VITALS: PULSE 92
--- NOTE | 2016-06-05 22:45 | PN ---
Patient is seen for followup for end-stage renal disease. He is hoping to be discharged today. Patient needs to be set up for outpatient dialysis. He has an AV fistula in his left arm which is not mature; he had the surgery about one week ago. On examination, blood pressure is 162/74, heart rate 94 per minute. He is afebrile. EXAMINATION OF THE HEART: S1 and S2. EXAMINATION OF THE LUNGS: Bilateral breath sounds are heard. ABDOMEN: Soft, nontender. Examination of lower extremities shows edema 1+ bilaterally. Labs show sodium of 137, potassium 4.1; hemoglobin 7.5 g/dL. ASSESSMENT: 1. End-stage renal disease, on hemodialysis. Will maintain patient on hemodialysis via IJ Perm-A-Cath until AV fistula is ready. 2. Anemia of chronic disease. No active bleeding noted. He will receive IV iron and ( ) as outpatient. 3. Volume overload, currently improved. 4. Hypertension, partly volume-sensitive. Expect further improvement with improved volume status with dialysis. PLAN: Patient is stable for discharge. Follow up as outpatient on hemodialysis.
[2016-06-07] MEDS ORDERED: LEVOFLOXACIN 500 MG TAB PO SCH (22:00)
--- NOTE | 2016-06-08 16:22 | CDI ---
In responding to this query, please exercise your independent professional judgment. The [facility] Coding Staff and Clinical Documentation Specialists appreciate your assistance in clarifying documentation, maintaining compliance with coding guidelines, accurately documenting patients condition and capturing severity of illness. The fact that a question is asked does not imply that any particular answer is desired or expected. Communication forms are a method of clarifying documentation and are not made part of the Legal Health Record. Thank you in advance for your clarification. Last Revision, April 2015 Judithleslie Hunt [address] [facility] [place] [address] Documentation Clarification Form Date: 06/08/2016 4:04:00 PM From: Felicia Avalos Phone: Admit Date: 05/31/2016 9:40:00 PM Patient Name: Henrry Pulido Visit Number: [id number] Discharge Date: 06/08/16 Dr. Teagan Herndon Febrile illness most likely secondary sepsis SIRS documented in the H&P. DS documents "The patient presented with fever and early sepsis picture, was started on broad-spectrum antibiotics and improved dramatically." Discharge diagnoses: End stabe renal disease, acute respiratory failure with underlying pneumonia and fluid overload status and anemia, acute on chronic. Sepsis was not included in the discharge diagnoses. WBC/Left Shift : 12.2 & neutrophils 10.1 Lactic acid: 0.9 Blood cultures: no growth Vitals signs on admission: P-96, RR-24, bp-185/78, T-97.9 Other Clinical Indicators: Treatment: IV antibiotics: Levofloxacin, Piperacillin ID Consult: Pulmonary, Renal, ID In your professional opinion, can you please clarify if the patient had sepsis after study? Sepsis ruled in Sepsis ruled out SIRS Criteria: 2 or more of the following may indicate SIRS Temperature < 96.8F(36C) or > 101.0F (38C) Heart Rate > 90 bpm Respiratory Rate > 20 breaths/min or PaCO2 < 32 mmHg White Blood Cell Count > 12,000 or < 4,000 cells/mm3 or > 10% bands Please document in your progress notes and/or discharge summary in order to capture severity of illness and risk of mortality. Include clinical findings that support your diagnosis. FYI: Press F11 to launch patient chart. YIFAN Cunha, CCS, AHIMA Certified [employer] Tool Grinding Machine Operator/[place] [employer] Grinding Machine Operator [employer] HASEEB
--- NOTE | 2016-06-19 16:08 | P.PN ---
Progress Note - Text Clarification of discharge summary. Sepsis ruled in with temperature 100.6, fever and chills at home, respirations 24, leukocytosis of 12.2.
== END 2016-06-05 17:04 | disposition home health service (06) | DRG 871 ==
LOC: EC 20:24 → 6SEL 21:40 → 6ICU 06-01 13:01 → 6SEL 06-01 13:03
PROVIDERS: ADMIT Internal Medicine; ATTEND Internal Medicine
PROC: 05HM33Z Insertion of Infusion Device into Right Internal Jugular Vein, Percutaneous Approach (ICD-10-PCS; principal; 2016-06-02 09:00)
PROC: B543ZZA Ultrasonography of Right Jugular Veins, Guidance (ICD-10-PCS; 2016-06-02 09:00)
PROC: 5A1D60Z (ICD-10-PCS; 2016-06-02 09:00)
PROC: 30233N1 Transfusion of Nonautologous Red Blood Cells into Peripheral Vein, Percutaneous Approach (ICD-10-PCS; 2016-06-03)
DX: A41.9 Sepsis, unspecified organism (principal); J18.9 Pneumonia, unspecified organism; J96.21 Acute and chronic respiratory failure with hypoxia; I13.2 Hypertensive heart and chronic kidney disease with heart failure and with stage 5 chronic kidney disease, or end stage renal disease; N17.9 Acute kidney failure, unspecified; E44.0 Moderate protein-calorie malnutrition; J44.0 Chronic obstructive pulmonary disease with (acute) lower respiratory infection; E87.2 Acidosis; N18.6 End stage renal disease; J45.901 Unspecified asthma with (acute) exacerbation; E87.1 Hypo-osmolality and hyponatremia; J98.11 Atelectasis; T82.7XXA Infection and inflammatory reaction due to other cardiac and vascular devices, implants and grafts, initial encounter; L03.114 Cellulitis of left upper limb; J44.1 Chronic obstructive pulmonary disease with (acute) exacerbation; E11.21 Type 2 diabetes mellitus with diabetic nephropathy; E11.65 Type 2 diabetes mellitus with hyperglycemia; E66.01 Morbid (severe) obesity due to excess calories; I50.9 Heart failure, unspecified; E11.22 Type 2 diabetes mellitus with diabetic chronic kidney disease; J84.10 Pulmonary fibrosis, unspecified; E87.5 Hyperkalemia; R13.10 Dysphagia, unspecified; D63.8 Anemia in other chronic diseases classified elsewhere; F32.9 Major depressive disorder, single episode, unspecified; G47.33 Obstructive sleep apnea (adult) (pediatric); N40.0 Benign prostatic hyperplasia without lower urinary tract symptoms; F41.9 Anxiety disorder, unspecified; Z68.33 Body mass index [BMI] 33.0-33.9, adult; E78.00 Pure hypercholesterolemia, unspecified; E78.5 Hyperlipidemia, unspecified; I25.2 Old myocardial infarction; R91.8 Other nonspecific abnormal finding of lung field; Z99.2 Dependence on renal dialysis; Z96.41 Presence of insulin pump (external) (internal); Z87.891 Personal history of nicotine dependence; Z88.2 Allergy status to sulfonamides; Z79.4 Long term (current) use of insulin; Z79.82 Long term (current) use of aspirin; Z79.51 Long term (current) use of inhaled steroids; Z79.899 Other long term (current) drug therapy
CPT/HCPCS: 36415; 36558; 71010; 71020; 71250; 76000; 76937; 77001; 80048; 80053; 80074; 80076; 82272; 82550; 82553; 83036; 83540; 83550; 83605; 83735; 83880; 84100; 84484; 85025; 85027; 85379; 85610; 85730; 86850; 86900; 86901; 86920; 87040; 87070; 87205; 87502; 90935; 93005; 93306; 94640; 94644; 94660; 96361; 96374; 96375; 99291

== ENCOUNTER → 2016-11-30 | Outpatient (CLI) | payer MEDICARE ==
--- NOTE | 2016-11-30 08:07 | US ---
EXAMINATION TYPE: US venous doppler duplex LE DATE OF EXAM: 11/30/2016 7:56 AM COMPARISON: NONE CLINICAL HISTORY: BLE Elevated D Dimer R79.1. Bilateral knee pain, elevated D-dimer SIDE PERFORMED: Bilateral TECHNIQUE: The lower extremity deep venous system is examined utilizing real time linear array sonog lona with graded compression, doppler sonography and color-flow sonography. VESSELS IMAGED: External Iliac Vein (EIV) Common Femoral Vein Deep Femoral Vein Greater Saphenous Vein * Femoral Vein Popliteal Vein Small Saphenous Vein * Proximal Calf Veins (* superficial vessels) Grayscale, color doppler, spectral doppler imaging performed of the deep veins of the lower extremiti es. There is normal flow, compressibility, vascular waveforms bilaterally. Right Leg: Appears negative for DVT Left Leg: Appears negative for DVT IMPRESSION: No evidence for DVT.
== END | disposition home or self-care (01) ==
LOC: RADUSWWP 07:32
PROVIDERS: ATTEND Family Medicine
DX: R79.1 Abnormal coagulation profile (principal)
CPT/HCPCS: 93970

== ENCOUNTER → 2017-01-24 | Outpatient (CLI) | payer MEDICARE ==
--- NOTE | 2017-01-24 10:54 | XR ---
EXAMINATION TYPE: XR chest 2V DATE OF EXAM: 01/24/2017 COMPARISON: NONE TECHNIQUE: PA and lateral views submitted. HISTORY: Cough FINDINGS: The lungs are clear and there is no pneumothorax, pleural effusion, or focal pneumonia. Right-sided dialysis catheter no sizable pneumothorax. Biapical pleural thickening seen. Hypertrophic and degene rative change of the spine. Atherosclerotic change aorta. Calcifications in the left hilum noted. IMPRESSION: 1. No acute process.
== END | disposition home or self-care (01) ==
LOC: RADXRMAIN 10:38
PROVIDERS: ATTEND Family Medicine
DX: R05 Cough (principal)
CPT/HCPCS: 71020

== ENCOUNTER 2017-01-25 05:42 | Emergency (ER) | payer MEDICARE ==
[2017-01-25 05:55] VITALS: BP 177/81; PULSE 90; RESP 24; TEMP 97.2
[2017-01-25] MEDS ORDERED: diphenhydrAMINE 50 MG/ML 1 ML VIAL IM STA (06:32)
--- NOTE | 2017-01-25 06:37 | ED ---
General Adult HPI - General Chief complaint: Allergic Reaction Stated complaint: poss med reaction Time Seen by Provider: 01/25/17 06:26 Source: patient, family, RN notes reviewed Mode of arrival: ambulatory Limitations: no limitations - History of Present Illness Initial comments: Patient is a pleasant 71-year-old male presenting to the emergency department for possible ALLERGIC reaction. Patient has had sinus problems and cough for a couple of weeks. Patient feels he symptoms are starting to improve. Patient did see his doctor yesterday and given an antibiotic shot. Patient then given prescription for Levaquin that he started around 5:00. Patient has been itching all over since around 6:30 PM. Patient does have a questionable history of Levaquin ALLERGY previously however is unclear what it may have been. No difficulty in breathing. No swelling of the throat or tongue or mouth. Itching is diffuse however patient has no rash. - Related Data Home Medications Medication Instructions Recorded Confirmed Acetaminophen Tab [Tylenol Tab] 650 mg PO Q6H PRN 05/31/16 05/31/16 Albuterol Nebulized [Ventolin 2.5 mg INHALATION RT-Q6H PRN 05/31/16 05/31/16 Nebulized] Aspirin EC [Ecotrin Low Dose] 81 mg PO HS 05/31/16 05/31/16 Atorvastatin Calcium [Lipitor] 10 mg PO DAILY 05/31/16 05/31/16 Calcium Acetate [Phoslo] 667 mg PO TID-W/MEALS 05/31/16 05/31/16 DULoxetine HCL [Cymbalta] 60 mg PO DAILY 05/31/16 05/31/16 Doxercalciferol [Hectorol] 0.5 mcg PO HS 05/31/16 05/31/16 Finasteride [Proscar] 5 mg PO DAILY 05/31/16 05/31/16 Fluticasone/Salmeterol [Advair 1 puff INHALATION RT-BID 05/31/16 05/31/16 100-50 Diskus] HYDROcodone/APAP 5-325MG [Emily 1 tab PO Q6HR PRN 05/31/16 05/31/16 5-325] Insuln Asp Prt/Insulin Aspart See Protocol SQ-PUMP CONTINUOUS 05/31/16 05/31/16 [NovoLOG MIX 70-30 VIAL] Latanoprost [Xalatan 0.005%] 1 drop LEFT EYE HS 05/31/16 05/31/16 Montelukast [Singulair] 10 mg PO HS 05/31/16 05/31/16 [place]-3 Acid Ethyl Esters [Lovaza] 1 gm PO BID 05/31/16 05/31/16 Tiotropium 18 Mcg/Puff [Spiriva] 1 cap INHALATION RT-DAILY PRN 05/31/16 05/31/16 amLODIPine [Norvasc] 10 mg PO DAILY 05/31/16 05/31/16 clonazePAM [KlonoPIN] 1 mg PO HS PRN 05/31/16 05/31/16 hydrALAZINE HCL 75 mg PO BID 05/31/16 05/31/16 Previous Rx's Medication Instructions Recorded Furosemide [Lasix] 80 mg PO BID #60 tab 06/04/16 Levofloxacin [Levaquin] 500 mg PO DAILY #5 tab 06/04/16 methylPREDNISolone [Medrol Dose 4 mg PO DIRECTED #1 pack 06/04/16 Pack] hydrOXYzine HCL [Atarax] 50 mg PO QID PRN #20 tab 01/25/17 predniSONE 40 mg PO DAILY #3 tab 01/25/17 Allergies Allergy/AdvReac Type Severity Reaction Status Date / Time Sulfa (Sulfonamide Allergy Rash/Hives Verified 01/25/17 05:55 Antibiotics) Review of Systems ROS Statement: Those systems with pertinent positive or pertinent negative responses have been documented in the HPI. ROS Other: All systems not noted in ROS Statement are negative. Constitutional: Denies: fever Eyes: Denies: eye pain ENT: Denies: ear pain Respiratory: Denies: cough Cardiovascular: Denies: chest pain Endocrine: Denies: fatigue Gastrointestinal: Denies: abdominal pain Genitourinary: Denies: dysuria Musculoskeletal: Denies: back pain Skin: Denies: rash Neurological: Denies: weakness Past Medical History Past Medical History: COPD, Diabetes Mellitus, Hypertension, Renal Disease Additional Past Medical History / Comment(s): BPH, History of Any Multi-Drug Resistant Organisms: None Reported Past Surgical History: Heart Catheterization, Hernia Repair, Orthopedic Surgery Additional Past Surgical History / Comment(s): fistula 05/29 AV fistula creation 05/29/2016 [facility] Past Psychological History: No Psychological Hx Reported Smoking Status: Former smoker Past Alcohol Use History: Occasional Past Drug Use History: None Reported - Past Family History Father History Unknown: Yes ( at 76 from myocardial infarction) Mother History Unknown: Yes (Disease in her 90s secondary to hypertension and cirrhosis ) Brother(s) History Unknown: Yes (One brother from cirrhosis 2 other brothers one with hypertension and heart disease) Daughter(s) History Unknown: Yes (No major medical problems) General Exam Limitations: no limitations General appearance: alert, in no apparent distress Head exam: Present: atraumatic Eye exam: Present: normal appearance, PERRL ENT exam: Present: normal oropharynx, other (No signs of angioedema) Neck exam: Present: normal inspection Respiratory exam: Present: normal lung sounds bilaterally. Absent: wheezes Cardiovascular Exam: Present: regular rate, normal rhythm GI/Abdominal exam: Present: soft. Absent: tenderness Extremities exam: Present: normal inspection Neurological exam: Present: alert Psychiatric exam: Present: normal affect, normal mood Skin exam: Present: normal color. Absent: rash Course Vital Signs 01/25/17 05:51 Temperature 97.2 F L Pulse Rate 90 Respiratory 24 Rate Blood Pressure 177/81 O2 Sat by Pulse 97 Oximetry - Reevaluation(s) Reevaluation #1: 01/25/17 06:33 Patient does want to have steroid prescription for a couple of days. He is advised to try Atarax first and see if that controls his symptoms. Disposition Clinical Impression: Allergic reaction Disposition: HOME SELF-CARE Condition: Stable Instructions: Antibiotic Medication Allergy (ED) Additional Instructions: Discontinue Levaquin. You may try steroids if Atarax does not help control her symptoms. Please follow-up to in the next day or 2 for recheck. Return for difficulty breathing, swelling of the throat or tongue or lips, worsening symptoms or other concerns. Prescriptions: hydrOXYzine HCL [Atarax] 50 mg PO QID PRN #20 tab PRN Reason: Itching predniSONE 40 mg PO DAILY #3 tab Referrals: Kiel Wang DO [Primary Care Provider] - 1-2 days Time of Disposition: 06:37
== END 2017-01-25 06:40 | disposition home or self-care (01) ==
LOC: EC 05:42
DX: T78.40XA Allergy, unspecified, initial encounter (principal); R05 Cough; J44.9 Chronic obstructive pulmonary disease, unspecified; E11.9 Type 2 diabetes mellitus without complications; I10 Essential (primary) hypertension; Z87.891 Personal history of nicotine dependence; N40.0 Benign prostatic hyperplasia without lower urinary tract symptoms; Z79.51 Long term (current) use of inhaled steroids; Z79.82 Long term (current) use of aspirin; Z79.4 Long term (current) use of insulin; Z79.899 Other long term (current) drug therapy; Z88.2 Allergy status to sulfonamides
CPT/HCPCS: 99283; 96372; J1200

== ENCOUNTER 2017-02-20 17:13 | Emergency (ER) | payer MEDICARE ==
[2017-02-20 17:31] LABS: Glucose,Whole Blood 106 mg/dL (75-99)
--- NOTE | 2017-02-20 17:33 | ED ---
General Adult HPI - General Stated complaint: Diabetic Time Seen by Provider: 02/20/17 17:23 Source: patient, EMS, RN notes reviewed Mode of arrival: EMS Limitations: no limitations - History of Present Illness Initial comments: This is a 71-year-old male presents emergency department via EMS for hypoglycemic event. Patient states he finished dialysis and went home. She apparently had low blood sugar. Patient states his call 911. Patient is given an amp of dextrose by EMS. Patient became responsive at this time. Patient states is much improved at this time patient is eating in the room and not having specific complaints other than a dry cough. Patient denies fever, chills, chest pain, headache, dizziness. Patient denies nausea, diarrhea constipation. - Related Data Home Medications Medication Instructions Recorded Confirmed Acetaminophen Tab [Tylenol Tab] 650 mg PO Q6H PRN 05/31/16 05/31/16 Albuterol Nebulized [Ventolin 2.5 mg INHALATION RT-Q6H PRN 05/31/16 05/31/16 Nebulized] Aspirin EC [Ecotrin Low Dose] 81 mg PO HS 05/31/16 05/31/16 Atorvastatin Calcium [Lipitor] 10 mg PO DAILY 05/31/16 05/31/16 Calcium Acetate [Phoslo] 667 mg PO TID-W/MEALS 05/31/16 05/31/16 DULoxetine HCL [Cymbalta] 60 mg PO DAILY 05/31/16 05/31/16 Doxercalciferol [Hectorol] 0.5 mcg PO HS 05/31/16 05/31/16 Finasteride [Proscar] 5 mg PO DAILY 05/31/16 05/31/16 Fluticasone/Salmeterol [Advair 1 puff INHALATION RT-BID 05/31/16 05/31/16 100-50 Diskus] HYDROcodone/APAP 5-325MG [[place] 1 tab PO Q6HR PRN 05/31/16 05/31/16 5-325] Insuln Asp Prt/Insulin Aspart See Protocol SQ-PUMP CONTINUOUS 05/31/16 05/31/16 [NovoLOG MIX 70-30 VIAL] Latanoprost [Xalatan 0.005%] 1 drop LEFT EYE HS 05/31/16 05/31/16 Montelukast [Singulair] 10 mg PO HS 05/31/16 05/31/16 [place]-3 Acid Ethyl Esters [Lovaza] 1 gm PO BID 05/31/16 05/31/16 Tiotropium 18 Mcg/Puff [Spiriva] 1 cap INHALATION RT-DAILY PRN 05/31/16 05/31/16 amLODIPine [Norvasc] 10 mg PO DAILY 05/31/16 05/31/16 clonazePAM [KlonoPIN] 1 mg PO HS PRN 05/31/16 05/31/16 hydrALAZINE HCL 75 mg PO BID 05/31/16 05/31/16 Previous Rx's Medication Instructions Recorded Furosemide [Lasix] 80 mg PO BID #60 tab 06/04/16 Levofloxacin [Levaquin] 500 mg PO DAILY #5 tab 06/04/16 methylPREDNISolone [Medrol Dose 4 mg PO DIRECTED #1 pack 06/04/16 Pack] hydrOXYzine HCL [Atarax] 50 mg PO QID PRN #20 tab 01/25/17 predniSONE 40 mg PO DAILY #3 tab 01/25/17 Allergies Allergy/AdvReac Type Severity Reaction Status Date / Time Sulfa (Sulfonamide Allergy Rash/Hives Verified 02/20/17 17:20 Antibiotics) Review of Systems ROS Statement: Those systems with pertinent positive or pertinent negative responses have been documented in the HPI. ROS Other: All systems not noted in ROS Statement are negative. Past Medical History Past Medical History: COPD, Diabetes Mellitus, Hypertension, Renal Disease Additional Past Medical History / Comment(s): BPH, History of Any Multi-Drug Resistant Organisms: None Reported Past Surgical History: Heart Catheterization, Hernia Repair, Orthopedic Surgery Additional Past Surgical History / Comment(s): fistula 05/29 AV fistula creation 05/29/2016 [facility] Past Psychological History: No Psychological Hx Reported Smoking Status: Former smoker Past Alcohol Use History: Occasional Past Drug Use History: None Reported - Past Family History Father History Unknown: Yes ( at 76 from myocardial infarction) Mother History Unknown: Yes (Disease in her 90s secondary to hypertension and cirrhosis ) Brother(s) History Unknown: Yes (One brother from cirrhosis 2 other brothers one with hypertension and heart disease) Daughter(s) History Unknown: Yes (No major medical problems) General Exam General appearance: alert, in no apparent distress Head exam: Present: atraumatic, normocephalic, normal inspection Eye exam: Present: normal appearance, PERRL, EOMI. Absent: scleral icterus, conjunctival injection, periorbital swelling ENT exam: Present: normal exam, normal oropharynx, mucous membranes moist, TM's normal bilaterally Neck exam: Present: normal inspection. Absent: tenderness, meningismus, lymphadenopathy Respiratory exam: Present: rales (Mild the bases). Absent: respiratory distress , wheezes, rhonchi, stridor Cardiovascular Exam: Present: regular rate, normal rhythm, normal heart sounds. Absent: systolic murmur, diastolic murmur, rubs, gallop, clicks GI/Abdominal exam: Present: soft, normal bowel sounds. Absent: distended, tenderness, guarding, rebound, rigid Neurological exam: Present: alert, oriented X3, CN II-XII intact Skin exam: Present: warm, dry, intact, normal color. Absent: rash Course Vital Signs 02/20/17 17:20 Temperature 96.7 F L Pulse Rate 74 Respiratory 16 Rate Blood Pressure 173/73 O2 Sat by Pulse 97 Oximetry Medical Decision Making - Medical Decision Making 71-year-old worse from for hypoglycemic event. patient blood sugar has improved after eating in an amp of d50. patient states he feels much improved he has no specific complaints at this time he did complain of a cough which x- ray showed no evidence of morning has does have a small pleural effusion which is new. he has no lower extremity edema. patient denies any orthopnea or shortness of breath at this time. patient will follow-up with pcp. patient return if symptoms worsen. - Lab Data Result diagrams: 02/20/17 17:45 02/20/17 17:45 Lab Results 02/20/17 02/20/17 02/20/17 Range/Units 17:26 17:45 17:45 WBC 8.7 (3.8-10.6) k/uL RBC 2.42 L (4.30-5.90) m/uL Hgb 7.8 L (13.0-17.5) gm/dL Hct 22.6 L (39.0-53.0) % MCV 93.6 (80.0-100.0) fL MCH 32.4 (25.0-35.0) pg MCHC 34.6 (31.0-37.0) g/dL RDW 13.9 (11.5-15.5) % Plt Count 293 (150-450) k/uL Neutrophils % 72 % Lymphocytes % 14 % Monocytes % 8 % Eosinophils % 4 % Basophils % 1 % Neutrophils # 6.2 (1.3-7.7) k/uL Lymphocytes # 1.3 (1.0-4.8) k/uL Monocytes # 0.7 (0-1.0) k/uL Eosinophils # 0.3 (0-0.7) k/uL Basophils # 0.1 (0-0.2) k/uL Sodium 142 (137-145) mmol/L Potassium 3.4 L (3.5-5.1) mmol/L Chloride 99 (98-107) mmol/L Carbon Dioxide 32 H (22-30) mmol/L Anion Gap 11 mmol/L BUN 21 H (9-20) mg/dL Creatinine 2.64 H (0.66-1.25) mg/dL Est GFR (MDRD) Af Amer 29 (>60 ml/min/1.73 sqM) Est GFR (MDRD) Non-Af 24 (>60 ml/min/1.73 sqM) Glucose 71 L (74-99) mg/dL POC Glucose (mg/dL) 106 H (75-99) mg/dL POC Glu Taper/Finisher ID Karoline Vargas Calcium 9.3 (8.4-10.2) mg/dL Total Bilirubin 0.8 (0.2-1.3) mg/dL AST 20 (17-59) U/L ALT 36 (21-72) U/L Alkaline Phosphatase 106 (38-126) U/L Total Protein 6.6 (6.3-8.2) g/dL Albumin 3.7 (3.5-5.0) g/dL 02/20/17 02/20/17 Range/Units 18:01 18:23 WBC (3.8-10.6) k/uL RBC (4.30-5.90) m/uL Hgb (13.0-17.5) gm/dL Hct (39.0-53.0) % MCV (80.0-100.0) fL MCH (25.0-35.0) pg MCHC (31.0-37.0) g/dL RDW (11.5-15.5) % Plt Count (150-450) k/uL Neutrophils % % Lymphocytes % % Monocytes % % Eosinophils % % Basophils % % Neutrophils # (1.3-7.7) k/uL Lymphocytes # (1.0-4.8) k/uL Monocytes # (0-1.0) k/uL Eosinophils # (0-0.7) k/uL Basophils # (0-0.2) k/uL Sodium (137-145) mmol/L Potassium (3.5-5.1) mmol/L Chloride (98-107) mmol/L Carbon Dioxide (22-30) mmol/L Anion Gap mmol/L BUN (9-20) mg/dL Creatinine (0.66-1.25) mg/dL Est GFR (MDRD) Af Amer (>60 ml/min/1.73 sqM) Est GFR (MDRD) Non-Af (>60 ml/min/1.73 sqM) Glucose (74-99) mg/dL POC Glucose (mg/dL) 77 168 H (75-99) mg/dL POC Glu Taper/Finisher ID Hardik Ontiveros Calcium (8.4-10.2) mg/dL Total Bilirubin (0.2-1.3) mg/dL AST (17-59) U/L ALT (21-72) U/L Alkaline Phosphatase (38-126) U/L Total Protein (6.3-8.2) g/dL Albumin (3.5-5.0) g/dL Disposition Clinical Impression: Hypoglycemic reaction to insulin Disposition: HOME SELF-CARE Condition: Stable Instructions: Hypoglycemia in a Person with Diabetes (ED) Additional Instructions: Please return to the Emergency Department if symptoms worsen or any other concerns. Referrals: Kiel Wang DO [Primary Care Provider] - 1-2 days Time of Disposition: 18:34
[2017-02-20] MEDS ORDERED: DEXTROSE 50%-WATER 50 ML SYRINGE IVP STA (18:02)
[2017-02-20 18:05] LABS: Glucose,Whole Blood 77 mg/dL (75-99)
[2017-02-20 18:06] LABS: Basophils # (A) 0.1 k/uL (0-0.2); Basophils % (A) 1 %; CH 32.5; CHCM 34.8; Eosinophils # (A) 0.3 k/uL (0-0.7); Eosinophils % (A) 4 %; HCT 22.6 % (39.0-53.0); HDW 2.82; HGB 7.8 gm/dL (13.0-17.5); Luc # (Auto) 0.17; Luc % (Auto) 2; Lymphocytes # (A) 1.3 k/uL (1.0-4.8); Lymphocytes % (A) 14 %; MCH 32.4 pg (25.0-35.0); MCHC 34.6 g/dL (31.0-37.0); MCV 93.6 fL (80.0-100.0); Mean Platelet Volume 7.6; Monocytes # (A) 0.7 k/uL (0-1.0); Monocytes % (A) 8 %; Neutrophils # (A) 6.2 k/uL (1.3-7.7); Neutrophils % (A) 72 %; RBC 2.42 m/uL (4.30-5.90); RDW 13.9 % (11.5-15.5); WBC 8.7 k/uL (3.8-10.6)
[2017-02-20 18:12] LABS: Calcium 9.3 mg/dL (8.4-10.2); Potassium 3.4 mmol/L (3.5-5.1); Total Bilirubin 0.8 mg/dL (0.2-1.3); Total Protein 6.6 g/dL (6.3-8.2)
--- NOTE | 2017-02-20 18:24 | XR ---
EXAMINATION TYPE: XR chest 2V DATE OF EXAM: 02/20/2017 COMPARISON: 01/24/2017 HISTORY: Hypoglycemia with cough and pain TECHNIQUE: Frontal and lateral views of the chest are obtained. FINDINGS: There is blunting of the posterior costophrenic angles bilaterally, new since the prior ambrocio dy, and consistent with pleural effusions. Remainder the pleural space examination is negative. The lungs are clear and well expanded otherwise. Cardiac silhouette is mildly enlarged, stable. Bones and soft tissues are unremarkable. IMPRESSION: SMALL BILATERAL PLEURAL EFFUSIONS, NEW SINCE PRIOR STUDY.
[2017-02-20 18:27] LABS: Glucose,Whole Blood 168 mg/dL (75-99)
[2017-02-20 18:58] LABS: Glucose,Whole Blood 119 mg/dL (75-99)
[2017-02-20 19:15] LABS: Glucose,Whole Blood 96 mg/dL (75-99)
[2017-02-20] MEDS ORDERED: DEXTROSE 5%-0.9% NACL 1,000 ML IV SCH (19:15)
[2017-02-20 19:47] LABS: Glucose,Whole Blood 98 mg/dL (75-99)
[2017-02-20 20:34] LABS: Glucose,Whole Blood 116 mg/dL (75-99)
[2017-02-20 21:01] VITALS: BP 167/70; PULSE 57; RESP 18
[2017-02-20 21:09] VITALS: TEMP 98
== END 2017-02-20 21:00 | disposition home or self-care (01) ==
LOC: EC 17:13
DX: E11.649 Type 2 diabetes mellitus with hypoglycemia without coma (principal); T38.3X5A Adverse effect of insulin and oral hypoglycemic [antidiabetic] drugs, initial encounter; J90 Pleural effusion, not elsewhere classified; J44.9 Chronic obstructive pulmonary disease, unspecified; I10 Essential (primary) hypertension; N40.0 Benign prostatic hyperplasia without lower urinary tract symptoms; Z87.891 Personal history of nicotine dependence; Z88.2 Allergy status to sulfonamides; Z79.51 Long term (current) use of inhaled steroids; Z79.4 Long term (current) use of insulin; Z79.82 Long term (current) use of aspirin; Z79.899 Other long term (current) drug therapy
CPT/HCPCS: 36415; 71020; 80053; 85025; 96365; 96366; 96376; 99285

== ENCOUNTER → 2018-03-27 | Outpatient (CLI) | payer MEDICARE ==
--- NOTE | 2018-04-14 11:59 | EM ---
EVENT MONITOR DATE OF SERVICE: 03/27/2018. REFERRING PHYSICIAN: Dr. Wang. The patient was monitored for 14 days. The baseline rhythm appeared to be atrial fibrillation with a minimum heart rate of 63 beats per minute and maximum heart rate of 104 beats per minute. No evidence of any of any ventricular arrhythmia noted. No evidence of any supraventricular arrhythmia beside the atrial fibrillation. No evidence of sinus pause or sinus arrest seen. CONCLUSION: 1. This is a 2 week's event monitor. 2. The baseline rhythm probably is atrial flutter. 3. No evidence of any ventricular arrhythmia noted. 4. No evidence of sinus pause or sinus arrest. 5. The patient reported no symptoms. MMODL / IJN: [id number] /
== END | disposition home or self-care (01) ==
LOC: RADECHMAIN 12:26
PROVIDERS: ATTEND Family Medicine
DX: I48.1 Persistent atrial fibrillation (principal)
CPT/HCPCS: 93270; 93271

== ENCOUNTER 2018-05-08 15:25 | Inpatient (IN) | payer MEDICARE ==
[2018-05-08 21:05] LABS: Glucose,Whole Blood 225 mg/dL (75-99)
[2018-05-08 22:10] LABS: Anisocytosis Slight; Basophils # (A) 0.1 k/uL (0-0.2); Basophils % (A) 1 %; Eosinophils # (A) 0.4 k/uL (0-0.7); Eosinophils % (A) 9 %; HCT 36.4 % (39.0-53.0); HGB 11.6 gm/dL (13.0-17.5); Lymphocytes # (A) 1.2 k/uL (1.0-4.8); Lymphocytes % (A) 24 %; MCH 32.1 pg (25.0-35.0); MCHC 31.8 g/dL (31.0-37.0); Macrocytosis Moderate; Mean Platelet Volume 8.9; Monocytes # (A) 0.4 k/uL (0-1.0); Monocytes % (A) 9 %; Neutrophils # (A) 2.7 k/uL (1.3-7.7); Neutrophils % (A) 54 %; Platelet Count 241 k/uL (150-450); RDW 17.7 % (11.5-15.5); WBC 4.9 k/uL (3.8-10.6)
[2018-05-08 22:28] LABS: Albumin 3.9 g/dL (3.5-5.0); Calcium 9.5 mg/dL (8.4-10.2); Potassium 4.4 mmol/L (3.5-5.1); Total Bilirubin 1.2 mg/dL (0.2-1.3); Total Protein 6.5 g/dL (6.3-8.2)
[2018-05-08] MEDS ORDERED: IPRATROPIUM-ALBUTEROL 3 ML NEB INHALATION PRN (22:43)
[2018-05-08 23:17] VITALS: BMI 31.4
[2018-05-08] MEDS: INSULIN ASPART 100 UNIT/ML 1 ML 10 ML VIAL SQ SCH (23:20)
[2018-05-08] MEDS: MONTELUKAST 10 MG TAB PO SCH (23:21)
[2018-05-09 04:57] LABS: Hemoglobin A1C 6.1 % (4.0-6.0)
[2018-05-09 05:56] LABS: Glucose,Whole Blood 167 mg/dL (75-99)
[2018-05-09] MEDS: FAMOTIDINE 20 MG TAB PO SCH (06:01)
[2018-05-09] MEDS: LOSARTAN 50 MG TAB PO SCH (06:01)
[2018-05-09] MEDS: DULoxetine HCL 60 MG CAPSULE.DR PO SCH (06:01)
[2018-05-09] MEDS: INSULIN ASPART 100 UNIT/ML 1 ML 10 ML VIAL SQ SCH ×4 (06:02→21:36)
[2018-05-09] MEDS: amLODIPine 10 MG TAB PO SCH (06:02)
[2018-05-09] MEDS ORDERED: ceFAZolin 1,000 MG in SODIUM CHLORIDE 0.9% IRRIGATIO 250 ML IRRIGATION ONE (07:49)
[2018-05-09] MEDS ORDERED: ceFAZolin IN SWFI 2 GM/20 ML SYRINGE IVP STA (07:49)
[2018-05-09] MEDS ORDERED: IOPAMIDOL-250 50ML BTL IV ONE (08:00)
[2018-05-09] MEDS ORDERED: MIDAZOLAM 2 MG/2 ML VIAL ONE (08:01)
[2018-05-09] MEDS ORDERED: fentaNYL (PF) 50 MCG/ML 2 ML AMP ONE (08:01)
[2018-05-09] MEDS: fentaNYL (PF) 50 MCG/ML 2 ML AMP IV ONE ×2 (08:10→08:54)
[2018-05-09] MEDS: MIDAZOLAM 2 MG/2 ML VIAL IV ONE ×2 (08:13→08:59)
[2018-05-09] MEDS ORDERED: LIDOCAINE 1% INJ 10MG/ML (20 ML MDV) ONE (08:21)
[2018-05-09] MEDS ORDERED: LIDOCAINE 1% INJ 10MG/ML (20 ML MDV) SQ ONE (08:24)
[2018-05-09] MEDS: BUDESONIDE 0.5 MG/2 ML NEBU INHALATION SCH ×2 (08:25→20:52)
[2018-05-09] MEDS ORDERED: SODIUM CHLORIDE 0.9% 500 ML 500 ML IV ONE (08:29)
[2018-05-09] MEDS ORDERED: ASPIRIN 81 MG PO SCH (09:00)
[2018-05-09] MEDS ORDERED: HYDROcodone/APAP 5-325MG 1 EACH TAB PO PRN (09:22)
[2018-05-09] MEDS ORDERED: ACETAMINOPHEN TAB 325 MG TAB PO PRN (09:22)
--- NOTE | 2018-05-09 09:31 | P.PCN ---
Date of Procedure: 05/09/18 Preoperative Diagnosis: Sick sinus syndrome with syncopal episodes Postoperative Diagnosis: The same Procedure(s) Performed: Permanent pacemaker implantation, single chamber. Axillary venography Description of Procedure: HISTORY: This is a 73-year-old gentleman with history of chronic renal failure has been having symptoms of syncope. He was noted to have significant bradycardia with rates of 20-30. Patient was referred for permanent pacemaker implantation by Dr. Hunter. CONSENT:I have discussed the risks, benefits and alternative therapies for the above-mentioned procedure and for both sedation/analgesia as well as necessary blood product administration, if indicated, as they pertain to this patient. The patient has indicated understanding and acceptance of the risks and procedures discussed. PROCEDURE: Patient was brought to the lab in a fasting state. Patient was prepped and draped in the usual fashion. Patient was given IV sedation with fentanyl and Versed. The skin below the right clavicle was infiltrated with lidocaine. An incision was made parallel to deltopectoral groove was deepened until the pectoral fascia was exposed. A pocket was created by blunt dissection and cautery. Axillary venography was performed to delineate the course of the axillary vein. 1 venous stick were performed into extrathoracic portion of the axillary vein and 1 sheath was advanced over the guidewires into right in subclavian vein. Conscious Sedation: Versed 1mg Fentanyl 75 g Duration 57minutes LEADS: VENTRICULAR: This is manufactured by [employer]. Model number is 5076-58. The serial number is [id number] The ventricular lead is maneuvered l with help of a straight and curved stylets into the left ventricle apical region. Satisfactory position was obtained and threshold measurements were made. The atrial lead was then maneuvered into the right atrial appendage. And thresholds were obtained. THRESHOLDS: VENTRICLE: The minimal patient threshold was 0.7 at a pulse width of 0.5. Impedance was 1048. The R-wave is 26.1. The lead and pulse generator placed in the pocket after it was washed with antibiotics. Pocket was closed in the usual fashion. The fascia was closed with 2-0 Prolene ,the subcutaneous tissue was closed with 3-0 Prolene and the skin was closed with 4-0 Prolene. PROGRAMMING: MODE: VVI RATE: 60 to 1:30 OUTPUT: Ventricle: 3.5 FINAL IMPRESSION: #1 axillary venography #2. Successful implantation of single- chamber permanent pacemaker. COMPLICATIONS: None PLAN: Continue to monitor him on the telemetry unit. Continue prophylactic antibiotics. Patient also to excessive oozing, we'll watch for any bleeding and hematoma.
--- NOTE | 2018-05-09 11:47 | P.HPIM ---
History of Present Illness H&P Date: 05/09/18 Chief Complaint: severe arrhythmia with bradycardia, end-stage renal disease on hemodialysis 73-year-old male one of Dr. Wang patient of seen at [facility] and admitted on Saturday this week because of severe fatigue tiredness lightheadedness presyncope and uremia. Patient had missed his dialysis at the time he was seen Dr. Morgan in the office on Saturday for 30 days heart monitor and through his hospitalization at [facility] found to have severe bradycardia with sick sinus syndrome patient ended up being transferred to [facility] for a single chamber pacemaker which was done today with Dr. Albrecht, patient is back from his procedure ringing in bed feeling well his shortness of breath has improved some patient is less tired fatigue and having this lightheadedness and dizziness. Patient had dialysis since his hospitalization at [facility] in Saturday and knee probably have another one today. If no pneumothorax or any change in chest x-ray patient does well hopefully will be able to go home tomorrow or on Saturday. Review of Systems CONSTITUTIONAL: Well-developed no acute respiratory distress. Still have severe fatigue and tiredness EYES: No icterus sclerae, no conjunctivitis. EARS, NOSE, MOUTH, THROAT, and FACE: No sore throat, lymphadenopathy, carotid bruits or deformity. RESPIRATORY: No SOB cough or wheezes. Mild shortness of breath and dyspnea CARDIOVASCULAR: No CP, Palpitation, PND, Orthopnea, or angina. Bradycardia and arrhythmia with no chest pain GASTROINTESTINAL: No Abd pain, Nausea or vomiting, no Diarrhea or constipation, No GI Bleed, no distention or masses. GENITOURINARY: Negative for Hematuria or UTI, no kidney stones. End-stage renal disease on hemodialysis INTEGUMENT/BREAST: Negative for any muscular injury with mild osteoarthritis.. HEMATOLOGIC/LYMPHATIC: Negative for bleed or purpura. MUSCULOSKELTAL: Negative for Myalgia or arthralgia. NEURLOGICAL: No LOC, Sz or syncope, blurred vision dizziness or abnormality. Generalized fatigue tiredness abnormal balance and gait and presyncope. BEHAVIORAL/PSYCH: Negative. ENDOCRINE: Negative. Past Medical History Past Medical History: COPD, Diabetes Mellitus, Dialysis, Hypertension, Prostate Disorder, Renal Disease, Sleep Apnea/CPAP/BIPAP Additional Past Medical History / Comment(s): BPH History of Any Multi-Drug Resistant Organisms: None Reported Past Surgical History: Heart Catheterization, Hernia Repair, Orthopedic Surgery Additional Past Surgical History / Comment(s): fistula 05/29 AV fistula creation 05/29/2016 [facility] Past Psychological History: No Psychological Hx Reported Smoking Status: Former smoker Past Alcohol Use History: Occasional Past Drug Use History: None Reported - Past Family History Father History Unknown: Yes Mother History Unknown: Yes Brother(s) History Unknown: Yes (One brother from cirrhosis 2 other brothers one with hypertension and heart disease) Family Medical History: COPD, Liver Disease Daughter(s) History Unknown: Yes Medications and Allergies Home Medications Medication Instructions Recorded Confirmed Type DULoxetine HCL [Cymbalta] 60 mg PO HS 02/20/17 05/08/18 History Furosemide [Lasix] 40 mg PO BID 02/20/17 05/08/18 History Insulin Aspart (For Pump) [NovoLOG 0.01 unit SQ-PUMP CONTINUOUS 02/20/17 History (For Pump)] hydrALAZINE HCL [Apresoline] 25 mg PO TID 02/20/17 05/08/18 History Apixaban [Eliquis] 5 mg PO BID 05/08/18 05/08/18 History HYDROcodone/APAP 5-325MG [[place] 1 tab PO DAILY PRN 05/08/18 05/08/18 History 5-325] clonazePAM 1 - 2 mg PO HS PRN 05/08/18 05/08/18 History clonazePAM 1 mg PO DAILY 05/08/18 05/08/18 History Allergies Allergy/AdvReac Type Severity Reaction Status Date / Time Sulfa (Sulfonamide Allergy Rash/Hives Verified 05/08/18 20:36 Antibiotics) levofloxacin [From Levaquin] AdvReac Unknown Verified 05/08/18 20:36 Physical Exam Vitals: Vital Signs Temp Pulse Resp BP Pulse Ox 05/09/18 04:00 97.9 F 65 18 175/77 95 05/08/18 23:30 97.6 F 67 18 184/80 95 05/08/18 20:00 97.5 F L 60 18 169/71 94 L Intake and Output 05/08/18 05/09/18 05/09/18 22:59 06:59 14:59 Output Total 0 0 Balance 0 0 Output: Urine 0 0 Other: # Voids 1 Weight 102 kg 93.6 kg General Appearance: Alert, cooperative, no distress, appears stated age. Neck HEENT: Supple, no lymphadenopathy, no thyroid enlargement, no carotid bruits. Lungs: Decreased breath sound bilaterally with fine rhonchi positive mild expiratory wheezes with fine crackles in the right base. Chest Wall: Right side of the chest wall has a pacer incision with pacemaker felt under the skin, no deformity no severe tenderness. Heart: Irregular with the greatest was 2 possible history 2/6 ejection systolic murmur at apex with positive JVD. Back: Symmetric, no curvature, ROM normal, no CVA tenderness. Abdomen: Soft, non-tender, bowel sounds active all four quadrants, no masses, no organomegaly. Extremities: Extremities normal, atraumatic, no cyanosis or edema. Pulses: Decreased pulses bilaterally.. Skin: Skin color, texture, tugor normal, no rashes or lesions. Neurologic: Alert oriented x3 cranial nerves II through XII intact, no motor deficit, no abnormal balance or gait. Results CBC & Chem 7: 05/08/18 21:56 05/08/18 21:56 Labs: Abnormal Lab Results - Last 24 Hours (Table) 05/08/18 05/08/18 05/08/18 Range/Units 21:03 21:56 21:56 RBC 3.60 L (4.30-5.90) m/uL Hgb 11.6 L (13.0-17.5) gm/dL Hct 36.4 L (39.0-53.0) % MCV 101.0 H (80.0-100.0) fL RDW 17.7 H (11.5-15.5) % Chloride 96 L (98-107) mmol/L BUN 32 H (9-20) mg/dL Creatinine 7.55 H* (0.66-1.25) mg/dL Glucose 230 H (74-99) mg/dL POC Glucose (mg/dL) 225 H (75-99) mg/dL Hemoglobin A1c (4.0-6.0) % 05/08/18 05/09/18 Range/Units 21:56 05:55 RBC (4.30-5.90) m/uL Hgb (13.0-17.5) gm/dL Hct (39.0-53.0) % MCV (80.0-100.0) fL RDW (11.5-15.5) % Chloride (98-107) mmol/L BUN (9-20) mg/dL Creatinine (0.66-1.25) mg/dL Glucose (74-99) mg/dL POC Glucose (mg/dL) 167 H (75-99) mg/dL Hemoglobin A1c 6.1 H (4.0-6.0) % Thrombosis Risk Factor Assmnt - DVT/VTE Prophylaxis DVT/VTE Prophylaxis: Pharmacologic Prophylaxis ordered, Mechanical Prophylaxis ordered - Choose All That Apply Any of the Below Risk Factors Present?: Yes Each Factor Represents 1 point: Obesity (BMI >25) Each Risk Factor Represents 2 Points: Age 61-74 years Thrombosis Risk Factor Assessment Total Risk Factor Score: 3 Thrombosis Risk Factor Assessment Level: Moderate Risk Assessment and Plan Assessment: 1 sinus syndrome and severe bradycardia: Post pacemaker placement, doing slightly better no, patient so far. 2 post pacemaker placement: Repeat chest x-ray tomorrow if no pneumothorax or any abnormality in the pacer is doing well on heart monitor patient might be discharged. 3 end-stage renal disease on hemodialysis 3 times a week: Patient will have hemodialysis today as well prepare for home possibly on the weekend. 4 insulin-dependent diabetes: On insulin pump continue current management continue Accu-Chek with sliding scales. 5 cardiomyopathy: Has been seeing cardiology continue on hydralazine along with furosemide and if needed can benefit from smaller dose of spironolactone, along with losartan. 6 severe COPD: Has been on Pulmicort and DuoNeb still on Singulair and O2. 7 hypertension: Remain well controlled on Cozaar amlodipine and hydralazine. 8 BPH: Continue tamsulosin 0.4 mg a day keep watching for any urinary retention. 9 chronic depression: Has been on Cymbalta 60 mg daily. 10 obstructive sleep apnea: Has been using BiPAP. 11 GI prophylaxis: Patient be on Pepcid 20 mg daily. 12 DVT prophylaxis: Patient still on liquids resume medication. CODE STATUS: Full code. Admit patient to inpatient status for more than 2 nights.
[2018-05-09 12:17] LABS: Glucose,Whole Blood 182 mg/dL (75-99)
[2018-05-09] MEDS: FUROSEMIDE 40 MG TAB PO SCH (13:32)
[2018-05-09] MEDS: TAMSULOSIN 0.4 MG CAP.ER.24H PO SCH (13:32)
[2018-05-09] MEDS: SEVELAMER 800 MG TAB PO SCH ×3 (13:32→17:56)
[2018-05-09] MEDS: CALCIUM ACETATE 667 MG CAP PO SCH ×2 (13:32→17:56)
[2018-05-09] MEDS: DOCUSATE 100 MG CAP PO SCH (13:32)
[2018-05-09] MEDS: ceFAZolin IN SWFI 2 GM/20 ML SYRINGE IVP SCH ×2 (13:36→21:37)
--- NOTE | 2018-05-09 14:36 | CONS ---
CONSULTATION DATE OF SERVICE: 05/09/2018. HISTORY OF PRESENT ILLNESS: The patient is a 73-year-old male who was previously admitted to [facility] and was bradycardic and was transferred to [facility] for placement of pacemaker for treatment of sick sinus syndrome. The patient with a history of COPD and insulin-dependent diabetes mellitus, end-stage renal disease requiring hemodialysis and is seen today just having returned from having the pacemaker placed. Awake, alert, hemodynamically stable, afebrile, in no acute distress. PAST MEDICAL HISTORY: Positive for hypertension, high cholesterol, insulin-dependent diabetes mellitus, chronic obstructive pulmonary disease, end-stage renal disease, on dialysis. BPH, osteoarthritis. PAST SURGICAL HISTORY: Positive for AV fistula placed, history of cardiac cath, hernia repair, orthopedic surgery, and right knee bursa 8 years ago. ALLERGIES: Include SULFA. MEDICATIONS: Medications patient is on at home include insulin via a Spiriva insulin pump, [place] 5/325 one tab p.o. daily p.r.n., clonazepam 1 mg p.o. daily and 1-2 mg p.o. q.h.s. p.r.n., Lasix 40 mg p.o. b.i.d., hydralazine 25 mg p.o. t.i.d., duloxetine 60 mg p.o. q.h.s., and Eliquis 5 mg p.o. b.i.d. SOCIAL HISTORY: Patient does have a history of smoking for 20+ years. Quit over 20 years ago. Denies any alcohol use. Denies any illicit drug use. FAMILY HISTORY: Mother at the age of 96 from heart problems and diabetes mellitus. Father at the age of 76 from heart problems and diabetes as well. REVIEW OF SYSTEMS: General is negative for fever or chills. The patient does have problems with fatigue. HEENT: Negative for any headaches. Negative for any acute visual changes. Denies any difficulty hearing. Negative for any nosebleeds or seasonal rhinitis. Denies any sore throat or difficulty swallowing. RESPIRATORY: Positive for mild shortness of breath. The lungs are essentially clear. No rales or wheeze CARDIOVASCULAR: Positive for bradycardia prior to the pacemaker placement. GI: Negative for abdominal pain. No nausea, vomiting, diarrhea, or constipation. : Positive for end-stage renal disease on dialysis and BPH. Endocrine is positive for insulin-dependent diabetes mellitus. Neurologic is negative for any history of seizures. Denies neuropathy. MUSCULOSKELETAL: Positive for mild osteoarthritis. PSYCHIATRIC: Positive for anxiety. PHYSICAL EXAM: General was a pleasant 73-year-old male who is seen lying in bed, awake and alert. VITAL SIGNS: Temp is 98.0, heart rate 60, respiratory rate 16, blood pressure is 133/63, O2 SATs 92% on room air. HEENT. Head is normocephalic, atraumatic. Pupils equal, round, react to light. Ears and nose, no discharge is noted. NECK: Supple. Trachea is midline. LUNGS: Essentially clear. No rales or wheezes. HEART: S1, S2 heard. Not tachycardic. ABDOMEN: Soft. Bowel sounds are heard. EXTREMITIES: With no edema. NEUROLOGIC: Patient is awake, alert, and oriented. LABS: Hemoglobin 11.6, hematocrit 36.4, white count 4.9 with 241,000 platelets, sodium is 137, potassium is 4.4, chloride is 96. CO2 is 28, anion gap is 13, BUN is 32, creatinine 7.55, glucose 182, hemoglobin A1c 6.1, calcium is 9.5, total bilirubin 1.2. AST is 23, ALT is 29, alkaline phosphatase is 119, total protein is 6.5, albumin is 3.9. No imaging to review. IMPRESSION: 1. Sick sinus syndrome, status post permanent pacemaker placement. 2. Obstructive sleep apnea, untreated. Patient currently awaiting a new CPAP machine. 3. Chronic obstructive pulmonary disease, relatively stable. 4. End-stage renal disease, on hemodialysis. Plan is for dialysis later on today and patient is being followed by Nephrology. 5. Insulin-dependent diabetes mellitus. Patient is to restart his insulin pump. PLAN: Continue the current medications which have been reviewed with bronchodilators, aerosolized steroids and Singulair. Continue incentive spirometry and pulmonary hygiene. Continue GI prophylaxis and patient is to restart his oral medications with Eliquis today. Increase activity as tolerated. Thank you for the consultation. Will follow patient closely with you making further changes as necessary. MMODL / IJN: [id number] /
[2018-05-09 17:10] LABS: Glucose,Whole Blood 107 mg/dL (75-99)
--- NOTE | 2018-05-09 19:39 | CONS ---
CONSULTATION REASON FOR CONSULTATION: End-stage renal disease. Patient is a 73-year-old male with end-stage renal disease, on hemodialysis on a Saturday, Saturday, Saturday schedule. He was admitted to the hospital for pacemaker placement, which was done by Dr. Albrecht this morning. Patient had been having bradycardia associated with fatigue, lightheadedness and presyncope. He states he is feeling better. Patient will be dialyzed today and he could possibly be discharged after dialysis. He denies any chest pains, shortness of breath, nausea, vomiting, abdominal pain, diarrhea or fever. PAST MEDICAL HISTORY: 1. End-stage renal disease. 2. Type 2 diabetes. 3. BPH. 4. Anemia of chronic disease. 5. CKD mineral bone disorder. PAST SURGICAL HISTORY: 1. Cardiac catheterization. 2. Hernia repair. 3. AV fistula. 4. Pacemaker placement this morning. SOCIAL HISTORY: Negative for smoking, drug abuse or alcohol abuse. Patient is a former smoker. MEDICATIONS: Medications at home prior to admission included: 1. Cymbalta. 2. Lasix. 3. Hydralazine. 4. Eliquis. 5. Holiday. ALLERGIES: ALLERGIES Include SULFA and LEVAQUIN. PHYSICAL EXAMINATION: Patient is comfortable, awake. He is not in any acute distress. He is alert and oriented x3. UTILITY TELLER exam is grossly intact. Blood pressure this morning was 133/63, heart rate 60 per minute. He is afebrile. EXAMINATION OF THE HEART: S1, S2. EXAMINATION OF LUNGS: Bilateral breath sounds are heard. ABDOMEN: Soft, non-tender. Examination of lower extremities shows no significant edema. UTILITY TELLER exam is grossly intact. LABS: Potassium 4.4, hemoglobin 11.6. ASSESSMENT: 1. End-stage renal disease, on hemodialysis on a Saturday, Saturday, Saturday schedule. 2. Hypotension bradycardia, currently improved post pacemaker placement. 3. Chronic kidney disease mineral bone disorder. 4. Type 2 diabetes. PLAN: Hemodialysis today. Patient could be discharged post hemodialysis if cleared by Cardiology. MMODL / IJN: [id number] /
[2018-05-09 20:37] LABS: Glucose,Whole Blood 181 mg/dL (75-99)
[2018-05-09] MEDS: MONTELUKAST 10 MG TAB PO SCH (21:36)
[2018-05-10] MEDS: ceFAZolin IN SWFI 2 GM/20 ML SYRINGE IVP SCH ×2 (03:07→09:08)
[2018-05-10 04:55] VITALS: RESP 18
[2018-05-10 06:44] LABS: Glucose,Whole Blood 159 mg/dL (75-99)
[2018-05-10 06:45] LABS: Glucose,Whole Blood 164 mg/dL (75-99)
[2018-05-10] MEDS: INSULIN ASPART 100 UNIT/ML 1 ML 10 ML VIAL SQ SCH ×2 (06:51→12:11)
[2018-05-10] MEDS: CALCIUM ACETATE 667 MG CAP PO SCH (06:51)
[2018-05-10] MEDS: SEVELAMER 800 MG TAB PO SCH ×2 (06:51→12:11)
--- NOTE | 2018-05-10 07:10 | XR ---
EXAMINATION TYPE: XR chest 2V DATE OF EXAM: 05/10/2018 HISTORY: Lead placement check. REFERENCE: Previous study dated 02/20/2017. FINDINGS: There is been interval placement of a unipolar pacemaker via a right subclavian approach. L ead overlies the right ventricle. I do not see evidence of pneumothorax. Heart size upper limits of normal. The lungs are clear. Pleural spaces are clear. IMPRESSION: STATUS POST PACEMAKER INSERTION.
[2018-05-10] MEDS: BUDESONIDE 0.5 MG/2 ML NEBU INHALATION SCH (07:28)
[2018-05-10] MEDS: DULoxetine HCL 60 MG CAPSULE.DR PO SCH (09:07)
[2018-05-10] MEDS: amLODIPine 10 MG TAB PO SCH (09:07)
[2018-05-10] MEDS: LOSARTAN 50 MG TAB PO SCH (09:08)
[2018-05-10] MEDS: FUROSEMIDE 40 MG TAB PO SCH (09:08)
[2018-05-10] MEDS: TAMSULOSIN 0.4 MG CAP.ER.24H PO SCH (09:08)
[2018-05-10] MEDS: FAMOTIDINE 20 MG TAB PO SCH (09:08)
[2018-05-10] MEDS: DOCUSATE 100 MG CAP PO SCH (09:08)
--- NOTE | 2018-05-10 10:44 | P.PN ---
Subjective Patient is seen in follow-up for end-stage renal disease. He is maintained on hemodialysis on a Saturday schedule. Patient's been having recurrent episodes of syncope and falls. Patient was noted to be bradycardic and had a pacemaker placed yesterday. Currently feeling well. Hemodynamically stable. Heart rate controlled. No active complaints at this time. Vital signs are stable. General: The patient appeared well nourished and normally developed. HEENT: Head exam is unremarkable. Neck is without jugular venous distension. LUNGS: Lungs are clear to auscultation and percussion. Breath sounds decreased. HEART: Rate and Rhythm are regular. First and second heart sounds normal. No murmurs, rubs or gallops. ABDOMEN: Abdominal exam reveals normal bowel sounds. Non-tender and non- distended. No evidence of peritonitis. EXTREMITITES: No clubbing, cyanosis, or edema. Objective - Vital Signs Vital signs: Vital Signs Temp 98.3 F 05/10/18 09:10 Pulse 70 05/10/18 09:10 Resp 18 05/10/18 09:10 BP 139/63 05/10/18 09:10 Pulse Ox 92 L 05/10/18 09:10 Intake & Output 05/09/18 05/10/18 05/10/18 18:59 06:59 18:59 Intake Total 200 Output Total 0 480 Balance 200 -480 Weight 91.4 kg Intake: Oral 200 Output: Urine 0 480 Other: Voiding Method Toilet Toilet Urinal Urinal # Voids 2 1 - Labs CBC & Chem 7: 05/08/18 21:56 05/08/18 21:56 Labs: Abnormal Lab Results - Last 24 Hours (Table) 05/09/18 05/09/18 05/09/18 Range/Units 11:52 17:08 20:36 POC Glucose (mg/dL) 182 H 107 H 181 H (75-99) mg/dL 05/10/18 05/10/18 Range/Units 06:39 06:44 POC Glucose (mg/dL) 159 H 164 H (75-99) mg/dL Assessment and Plan Plan: Assessment: 1. End-stage renal disease maintained on hemodialysis on a Saturday schedule. 2. Recurrent episodes of syncope related to bradycardia status post pacemaker placement yesterday. 3. Hypertension with chronic kidney disease. Currently controlled. 4. Chronic kidney disease mineral bone disease maintained on phosphate binders. 5. Diabetes mellitus. Plan: Hemodialysis on Saturday. Stable to be discharged home from nephrology standpoint.
[2018-05-10 12:02] LABS: Glucose,Whole Blood 250 mg/dL (75-99)
--- NOTE | 2018-05-10 12:03 | P.PN ---
Subjective Progress Note Date: 05/10/18 73-year-old male one of Dr. Wang patient of seen at [facility] and admitted on Saturday this week because of severe fatigue tiredness lightheadedness presyncope and uremia. Patient had missed his dialysis at the time he was seen Dr. Morgan in the office on Saturday for 30 days heart monitor and through his hospitalization at [facility] found to have severe bradycardia with sick sinus syndrome patient ended up being transferred to [facility] for a single chamber pacemaker which was done today with Dr. Albrecht, patient is back from his procedure ringing in bed feeling well his shortness of breath has improved some patient is less tired fatigue and having this lightheadedness and dizziness. Patient had dialysis since his hospitalization at [facility] in Saturday and knee probably have another one today. If no pneumothorax or any change in chest x-ray patient does well hopefully will be able to go home in AM. 05/10: Patient is feeling a lot better he denies any chest pain, shortness breath , he did have dialysis yesterday he would be discharged home today and follow up with his dialysis next Saturday and he will follow-up with cardiology as an outpatient. Review of Systems CONSTITUTIONAL: Well-developed no acute respiratory distress. Still have severe fatigue and tiredness EYES: No icterus sclerae, no conjunctivitis. EARS, NOSE, MOUTH, THROAT, and FACE: No sore throat, lymphadenopathy, carotid bruits or deformity. RESPIRATORY: No SOB cough or wheezes. Mild shortness of breath and dyspnea CARDIOVASCULAR: No CP, Palpitation, PND, Orthopnea, or angina. Bradycardia and arrhythmia with no chest pain GASTROINTESTINAL: No Abd pain, Nausea or vomiting, no Diarrhea or constipation, No GI Bleed, no distention or masses. GENITOURINARY: Negative for Hematuria or UTI, no kidney stones. End-stage renal disease on hemodialysis INTEGUMENT/BREAST: Negative for any muscular injury with mild osteoarthritis.. HEMATOLOGIC/LYMPHATIC: Negative for bleed or purpura. MUSCULOSKELTAL: Negative for Myalgia or arthralgia. NEURLOGICAL: No LOC, Sz or syncope, blurred vision dizziness or abnormality. Generalized fatigue tiredness abnormal balance and gait and presyncope. BEHAVIORAL/PSYCH: Negative. ENDOCRINE: Negative. Objective - Vital Signs Vital signs: Vital Signs Temp 98.4 F 05/10/18 04:00 Pulse 78 05/10/18 07:38 Resp 18 05/10/18 04:00 BP 161/72 05/10/18 04:00 Pulse Ox 98 05/10/18 04:00 Intake & Output 05/09/18 05/10/18 05/10/18 18:59 06:59 18:59 Intake Total 200 Output Total 0 480 Balance 200 -480 Weight 91.4 kg Intake: Oral 200 Output: Urine 0 480 Other: Voiding Method Toilet Urinal # Voids 2 1 - Exam General Appearance: Alert, cooperative, no distress, appears stated age. Neck HEENT: Supple, no lymphadenopathy, no thyroid enlargement, no carotid bruits. Lungs: Decreased breath sound bilaterally with fine rhonchi positive mild expiratory wheezes with fine crackles in the right base. Chest Wall: Right side of the chest wall has a pacer incision with pacemaker felt under the skin, no deformity no severe tenderness. Heart: Irregular with the greatest was 2 possible history 2/6 ejection systolic murmur at apex with positive JVD. Back: Symmetric, no curvature, ROM normal, no CVA tenderness. Abdomen: Soft, non-tender, bowel sounds active all four quadrants, no masses, no organomegaly. Extremities: Extremities normal, atraumatic, no cyanosis or edema. Pulses: Decreased pulses bilaterally.. Skin: Skin color, texture, tugor normal, no rashes or lesions. Neurologic: Alert oriented x3 cranial nerves II through XII intact, no motor deficit, no abnormal balance or gait. - Labs CBC & Chem 7: 05/08/18 21:56 05/08/18 21:56 Labs: Abnormal Lab Results - Last 24 Hours (Table) 05/09/18 05/09/18 05/09/18 Range/Units 11:52 17:08 20:36 POC Glucose (mg/dL) 182 H 107 H 181 H (75-99) mg/dL 05/10/18 05/10/18 Range/Units 06:39 06:44 POC Glucose (mg/dL) 159 H 164 H (75-99) mg/dL Assessment and Plan Assessment: Assessment and Plan Assessment: 1 sinus syndrome and severe bradycardia: Post pacemaker placement, doing slightly better no, patient so far. 2 post pacemaker placement: Repeat chest x-ray tomorrow if no pneumothorax or any abnormality in the pacer is doing well on heart monitor patient might be discharged. 3 end-stage renal disease on hemodialysis 3 times a week: Patient will have hemodialysis today as well prepare for home possibly on the weekend. 4 insulin-dependent diabetes: On insulin pump continue current management continue Accu-Chek with sliding scales. 5 cardiomyopathy: Has been seeing cardiology continue on hydralazine along with furosemide and if needed can benefit from smaller dose of spironolactone, along with losartan. 6 severe COPD: Has been on Pulmicort and DuoNeb still on Singulair and O2. 7 hypertension: Remain well controlled on Cozaar amlodipine and hydralazine. 8 BPH: Continue tamsulosin 0.4 mg a day keep watching for any urinary retention. 9 chronic depression: Has been on Cymbalta 60 mg daily. 10 obstructive sleep apnea: Has been using BiPAP. 11 GI prophylaxis: Patient be on Pepcid 20 mg daily. 12 DVT prophylaxis: Patient still on liquids resume medication. 13. Home today.
--- NOTE | 2018-05-10 12:13 | P.DS ---
Providers Date of admission: 05/08/18 19:06 Attending physician: Dmitriy Pool Consults: 05/08/18 22:52 Consult Physician Routine Consulting Provider: Ashly Michael Consult Reason/Comments: acute on chronic renal failure Do you want consulting provider notified?: Yes, Notify in am 05/08/18 22:55 Consult Physician Routine Consulting Provider: Romulo Naylor Consult Reason/Comments: mk Do you want consulting provider notified?: Yes, Notify in am 05/08/18 22:56 Consult Physician Routine Consulting Provider: Adrián Albrecht Consult Reason/Comments: pacemaker Do you want consulting provider notified?: Yes, Notify in am Primary care physician: Stated None Hospital Course: 73-year-old male one of Dr. Wang patient of seen at [facility] and admitted on Saturday this week because of severe fatigue tiredness lightheadedness presyncope and uremia. Patient had missed his dialysis at the time he was seen Dr. Morgan in the office on Saturday for 30 days heart monitor and through his hospitalization at [facility] found to have severe bradycardia with sick sinus syndrome patient ended up being transferred to [facility] for a single chamber pacemaker which was done today with Dr. Albrecht, patient is back from his procedure ringing in bed feeling well his shortness of breath has improved some patient is less tired fatigue and having this lightheadedness and dizziness. Patient had dialysis since his hospitalization at [facility] in Saturday and knee probably have another one today. If no pneumothorax or any change in chest x-ray patient does well hopefully will be able to go home in AM. 05/10: Patient is feeling a lot better he denies any chest pain, shortness breath , he did have dialysis yesterday he would be discharged home today and follow up with his dialysis next Saturday and he will follow-up with cardiology as an outpatient. Discharge diagnoses: 1 sick sinus syndrome and severe bradycardia: Post pacemaker placement. 2 post pacemaker placement. 3 end-stage renal disease on hemodialysis 3 times a week. 4 insulin-dependent diabetes. 5 cardiomyopathy. 6 severe COPD. 7 hypertension. 8 BPH. 9 chronic depression. 10 obstructive sleep apnea. Patient Condition at Discharge: Fair Plan - Discharge Summary New Discharge Prescriptions: New Cephalexin [Keflex] 500 mg PO Q8HR #10 cap amLODIPine [Norvasc] 10 mg PO DAILY tab Calcium Acetate [PhosLo] 667 mg PO BID-W/MEALS cap Losartan [Cozaar] 50 mg PO DAILY tab Montelukast [Singulair] 10 mg PO HS tab Tamsulosin [Flomax] 0.4 mg PO PC-BRKFST cap.er.24h Continue Insulin Aspart (For Pump) [NovoLOG (For Pump)] 0.01 unit SQ-PUMP CONTINUOUS hydrALAZINE HCL [Apresoline] 25 mg PO TID Furosemide [Lasix] 40 mg PO BID DULoxetine HCL [Cymbalta] 60 mg PO HS HYDROcodone/APAP 5-325MG [[place] 5-325] 1 tab PO DAILY PRN PRN Reason: Pain clonazePAM 1 - 2 mg PO HS PRN PRN Reason: Insomnia clonazePAM 1 mg PO DAILY Apixaban [Eliquis] 5 mg PO BID Discharge Medication List DULoxetine HCL [Cymbalta] 60 mg PO HS 02/20/17 [History] Furosemide [Lasix] 40 mg PO BID 02/20/17 [History] Insulin Aspart (For Pump) [NovoLOG (For Pump)] 0.01 unit SQ-PUMP CONTINUOUS [History] hydrALAZINE HCL [Apresoline] 25 mg PO TID 02/20/17 [History] Apixaban [Eliquis] 5 mg PO BID 05/08/18 [History] HYDROcodone/APAP 5-325MG [[place] 5-325] 1 tab PO DAILY PRN 05/08/18 [History] clonazePAM 1 - 2 mg PO HS PRN 05/08/18 [History] clonazePAM 1 mg PO DAILY 05/08/18 [History] Calcium Acetate [PhosLo] 667 mg PO BID-W/MEALS cap 05/10/18 [Rx] Cephalexin [Keflex] 500 mg PO Q8HR #10 cap 05/10/18 [Rx] Losartan [Cozaar] 50 mg PO DAILY tab 05/10/18 [Rx] Montelukast [Singulair] 10 mg PO HS tab 05/10/18 [Rx] Tamsulosin [Flomax] 0.4 mg PO PC-BRKFST cap.er.24h 05/10/18 [Rx] amLODIPine [Norvasc] 10 mg PO DAILY tab 05/10/18 [Rx] Follow up Appointment(s)/Referral(s): Kiel Wang DO [STAFF PHYSICIAN] - 1 Week Adrián Albrecht MD [STAFF PHYSICIAN] - 1 Week (Device clinic in 5 days.) Patient Instructions/Handouts: Pacemaker (DC) Discharge Disposition: HOME SELF-CARE
[2018-05-10 13:24] VITALS: BP 168/74; PULSE 62; TEMP 97.1
--- NOTE | 2018-05-10 14:10 | PN ---
PROGRESS NOTE DATE OF SERVICE: 05/10/2018 This patient has been hemodynamically stable. He is more awake, alert and appropriate. On physical examination, his blood pressure is 139/63, respiratory rate of 18, pulse rate 70, temperature 98.3. Oxygen saturation on room air is 92%. HEENT is unremarkable. Chest is clear. Cardiovascular system reveals an S1, S2. Abdomen is soft. There is no edema. IMPRESSION AT THIS TIME: 1. Repeated syncopal episodes with confusion, in part due to bradycardia, for which he has had a pacemaker placed. 2. Severe asthma that is well controlled. 3. Obstructive sleep apnea, for which he would benefit from BiPAP. Would continue him on his current medications, which were reviewed. Continue dialysis per Nephrology. His prognosis is fair. MMODL / IJN: [id number] /
--- NOTE | 2018-05-11 12:41 | PN ---
PROGRESS NOTE DATE OF SERVICE: May 10, 2018. HISTORY: Mr. Pulido is a 73-year-old gentleman who was transferred from [facility] yesterday for permanent pacemaker implantation. The patient was having significant bradycardia and sick sinus syndrome with dizziness. He was referred by Dr. Whitfield. The patient had a single-chamber permanent pacemaker from the right subscapular approach. The incision looks dry. There is no evidence of hematoma. Chest x-ray shows proper lead position. Threshold measurements reveal stable external thresholds. The patient is otherwise clinically stable. He remained stable overnight. From cardiac standpoint, patient could be discharged to home. The patient will have followup with Dr. Whitfield an outpatient. PHYSICAL EXAMINATION: The patient is afebrile. Blood pressure is running about 139/63, pulse rate is about 70, respirations are 18. Lungs appear to be clear. No rhonchi or wheezing. Heart is regular. Abdomen is soft. LABS: There are no new lab values. Last hemoglobin was 11.6. Creatinine was in the range of 7.55 on the 6th, but patient is on dialysis. Chest x-ray showed proper lead position. IMPRESSION: 1. The patient is status post a single-chamber permanent pacemaker implantation. 2. Chronic renal failure. 3. History of dizziness and near syncope. PLAN: The patient could be discharged home from cardiac standpoint as long as patient is medically stable. The patient was given the usual instructions. He was advised to keep the incision dry for 1 week. Advised to avoid any heavy pushing, pulling, or carrying loads in the right hand and also keep the right hand below the shoulder level. If the patient develops any swelling, dizziness, fevers, or new pain, the patient will contact us. MMODL / IJN: [id number] /
== END 2018-05-10 13:32 | disposition home health service (06) | DRG 242 ==
LOC: 3SCARD 19:06
PROVIDERS: ADMIT Internal Medicine Geriatric Medicine; ATTEND Internal Medicine Geriatric Medicine
PROC: 02HL3MZ Insertion of Cardiac Lead into Left Ventricle, Percutaneous Approach (ICD-10-PCS; 2018-05-09)
PROC: 02H63JZ Insertion of Pacemaker Lead into Right Atrium, Percutaneous Approach (ICD-10-PCS; 2018-05-09)
PROC: 5A1D70Z Performance of Urinary Filtration, Intermittent, Less than 6 Hours Per Day (ICD-10-PCS; 2018-05-09)
PROC: 0JH604Z Insertion of Pacemaker, Single Chamber into Chest Subcutaneous Tissue and Fascia, Open Approach (ICD-10-PCS; principal; 2018-05-09 07:30)
DX: I49.5 Sick sinus syndrome (principal); N18.6 End stage renal disease; I12.0 Hypertensive chronic kidney disease with stage 5 chronic kidney disease or end stage renal disease; D63.8 Anemia in other chronic diseases classified elsewhere; E11.22 Type 2 diabetes mellitus with diabetic chronic kidney disease; E78.00 Pure hypercholesterolemia, unspecified; F32.9 Major depressive disorder, single episode, unspecified; G47.33 Obstructive sleep apnea (adult) (pediatric); I42.9 Cardiomyopathy, unspecified; J44.9 Chronic obstructive pulmonary disease, unspecified; M89.9 Disorder of bone, unspecified; N40.0 Benign prostatic hyperplasia without lower urinary tract symptoms; Z79.01 Long term (current) use of anticoagulants; Z79.4 Long term (current) use of insulin; Z82.49 Family history of ischemic heart disease and other diseases of the circulatory system; Z82.5 Family history of asthma and other chronic lower respiratory diseases; Z83.3 Family history of diabetes mellitus; Z87.891 Personal history of nicotine dependence; Z96.41 Presence of insulin pump (external) (internal); Z99.2 Dependence on renal dialysis; Z88.1 Allergy status to other antibiotic agents; Z88.2 Allergy status to sulfonamides; Z79.891 Long term (current) use of opiate analgesic; Z79.899 Other long term (current) drug therapy
CPT/HCPCS: 33207; 71046; 80053; 83036; 85025; 90935; 94640

== ENCOUNTER 2018-05-10 22:36 | Observation (INO) | payer MEDICARE ==
[2018-05-10 23:05] LABS: Anisocytosis Slight; Basophils # (A) 0.1 k/uL (0-0.2); Basophils % (A) 1 %; Eosinophils # (A) 0.4 k/uL (0-0.7); Eosinophils % (A) 9 %; HCT 37.8 % (39.0-53.0); HGB 12.6 gm/dL (13.0-17.5); Lymphocytes # (A) 0.6 k/uL (1.0-4.8); Lymphocytes % (A) 12 %; MCH 32.8 pg (25.0-35.0); MCHC 33.3 g/dL (31.0-37.0); MCV 98.4 fL (80.0-100.0); Macrocytosis Slight; Mean Platelet Volume 8.7; Monocytes # (A) 0.4 k/uL (0-1.0); Monocytes % (A) 8 %; Neutrophils # (A) 3.5 k/uL (1.3-7.7); Neutrophils % (A) 68 %; Platelet Count 225 k/uL (150-450); RBC 3.85 m/uL (4.30-5.90); RDW 17.2 % (11.5-15.5); WBC 5.2 k/uL (3.8-10.6)
--- NOTE | 2018-05-10 23:07 | XR ---
EXAMINATION TYPE: XR chest 2V DATE OF EXAM: 05/10/2018 COMPARISON: Today HISTORY: Weakness TECHNIQUE: Frontal and lateral views of the chest are obtained. FINDINGS: There is no heart failure. There is coarsening of the lung markings. There is some pleural thickening and infiltrate posteriorly on the lateral view adjacent to the chest wall. There is right axillary pacemaker with the lead tip in the right ventricle. The bony thorax is intact. IMPRESSION: There is probably some infiltrate in the posterior right lower lobe right paraspinal reg ion that is increased slightly compared to exam this morning. No heart failure.
[2018-05-10 23:11] LABS: Partial Thromboplastin Time 26.5 sec (22.0-30.0); Prothrombin Time 10.9 sec (9.0-12.0)
[2018-05-10 23:17] LABS: Albumin 4.2 g/dL (3.5-5.0); Calcium 10.3 mg/dL (8.4-10.2); Magnesium 2.4 mg/dL (1.6-2.3); Potassium 4.2 mmol/L (3.5-5.1); Total Bilirubin 0.5 mg/dL (0.2-1.3)
[2018-05-10] MEDS ORDERED: DEXTROSE 50%-WATER 50 ML SYRINGE IVP STA (23:34)
[2018-05-10] MEDS ORDERED: SODIUM CHLORIDE 0.9% 500 ML 500 ML IV ONE (23:39)
--- NOTE | 2018-05-10 23:39 | CT ---
EXAMINATION TYPE: CT brain wo con DATE OF EXAM: 05/10/2018 COMPARISON: 08/31/2013 HISTORY: weakness CT DLP: 1068.4 mGycm Automated exposure control for dose reduction was used. FINDINGS: There is cerebral cortical atrophy. There is no mass effect nor midline shift. There is no sign of in tracranial hemorrhage. There is mild enlargement of the ventricles. Calvarium is intact. There is min imal mucosal thickening left maxillary sinus. There is incomplete pneumatization of the mastoid sinus es. IMPRESSION: CEREBRAL ATROPHY AND MILD HYDROCEPHALUS. NO ACUTE INTRACRANIAL ABNORMALITY. NO SIGNIFICANT CHANGE COM PARED TO OLD EXAM.
--- NOTE | 2018-05-10 23:41 | ED ---
General Adult HPI - General Chief complaint: Weakness Stated complaint: WEAKNESS Time Seen by Provider: 05/10/18 22:40 Source: patient, family, EMS, RN notes reviewed, old records reviewed Mode of arrival: EMS Limitations: no limitations - History of Present Illness Initial comments: 73-year-old male history of sick sinus syndrome status post pacemaker one-day prior. History of end-stage renal disease and diabetes. Patient receives hemodialysis Saturday was a Saturday, last hemodialysis was Saturday which was yesterday. Patient was discharged from the hospital today at approximately 4 PM , he said worsening generalized weakness as well as multiple near syncopal episodes and 1 fall. He did have minor head trauma with the fall, no loss consciousness. He is on blood thinners. Patient denies chest pain. Denies bleeding from his surgical site. Denies abdominal pain nausea or vomiting. Denies focal numbness or weakness. Denies headache. - Related Data Home Medications Medication Instructions Recorded Confirmed DULoxetine HCL [Cymbalta] 60 mg PO HS 02/20/17 05/08/18 Furosemide [Lasix] 40 mg PO BID 02/20/17 05/08/18 Insulin Aspart (For Pump) [NovoLOG 0.01 unit SQ-PUMP CONTINUOUS 02/20/17 (For Pump)] hydrALAZINE HCL [Apresoline] 25 mg PO TID 02/20/17 05/08/18 Apixaban [Eliquis] 5 mg PO BID 05/08/18 05/08/18 HYDROcodone/APAP 5-325MG [[place] 1 tab PO DAILY PRN 05/08/18 05/08/18 5-325] clonazePAM 1 - 2 mg PO HS PRN 05/08/18 05/08/18 clonazePAM 1 mg PO DAILY 05/08/18 05/08/18 Previous Rx's Medication Instructions Recorded Calcium Acetate [PhosLo] 667 mg PO BID-W/MEALS cap 05/10/18 Cephalexin [Keflex] 500 mg PO Q8HR #10 cap 05/10/18 Losartan [Cozaar] 50 mg PO DAILY tab 05/10/18 Montelukast [Singulair] 10 mg PO HS tab 05/10/18 Tamsulosin [Flomax] 0.4 mg PO PC-BRKFST cap.er.24h 05/10/18 amLODIPine [Norvasc] 10 mg PO DAILY tab 05/10/18 Allergies Allergy/AdvReac Type Severity Reaction Status Date / Time Sulfa (Sulfonamide Allergy Rash/Hives Verified 05/08/18 20:36 Antibiotics) levofloxacin [From Levaquin] AdvReac Unknown Verified 05/08/18 20:36 Review of Systems ROS Statement: Those systems with pertinent positive or pertinent negative responses have been documented in the HPI. ROS Other: All systems not noted in ROS Statement are negative. Past Medical History Past Medical History: COPD, Diabetes Mellitus, Dialysis, Hypertension, Prostate Disorder, Renal Disease, Sleep Apnea/CPAP/BIPAP Additional Past Medical History / Comment(s): BPH History of Any Multi-Drug Resistant Organisms: None Reported Past Surgical History: Heart Catheterization, Hernia Repair, Orthopedic Surgery , Pacemaker Additional Past Surgical History / Comment(s): fistula 05/29 AV fistula creation 05/29/2016 [facility] Past Psychological History: Depression Smoking Status: Former smoker Past Alcohol Use History: Occasional Past Drug Use History: None Reported - Past Family History Father History Unknown: Yes Mother History Unknown: Yes Brother(s) History Unknown: Yes (One brother from cirrhosis 2 other brothers one with hypertension and heart disease) Family Medical History: COPD, Liver Disease Daughter(s) History Unknown: Yes General Exam Limitations: no limitations General appearance: alert, in no apparent distress Head exam: Present: atraumatic, normocephalic Eye exam: Present: normal appearance. Absent: PERRL ((O, postsurgical changes, irregular. Right pupil is 3 mm and reactive.) ENT exam: Present: mucous membranes dry Neck exam: Present: normal inspection. Absent: tenderness, meningismus Respiratory exam: Present: normal lung sounds bilaterally. Absent: respiratory distress, wheezes Cardiovascular Exam: Present: regular rate, normal rhythm GI/Abdominal exam: Present: soft. Absent: distended, tenderness, guarding Extremities exam: Present: normal inspection, normal capillary refill. Absent: pedal edema, calf tenderness Back exam: Present: normal inspection, full ROM Neurological exam: Present: alert, oriented X3, CN II-XII intact. Absent: motor sensory deficit Psychiatric exam: Present: normal affect, normal mood Skin exam: Present: warm, dry, intact. Absent: cyanosis, diaphoretic Course Vital Signs 05/10/18 05/10/18 05/10/18 22:38 22:47 22:48 Temperature 97.6 F Pulse Rate 66 Pulse Rate [ 67 Hand Sander ] Respiratory 16 20 Rate Blood Pressure 112/56 O2 Sat by Pulse 97 Oximetry 05/10/18 05/11/18 23:57 01:00 Temperature 97.7 F Pulse Rate 60 60 Pulse Rate [ Hand Sander ] Respiratory 16 16 Rate Blood Pressure 109/58 140/59 O2 Sat by Pulse 100 98 Oximetry EKG Findings - EKG Comments: EKG Findings:: EKG: Ventricular rate 61, QRS duration 124, QTC 579, paced rhythm with underlying atrial flutter Medical Decision Making - Medical Decision Making 73 yo male presenting with generalized weakness, near syncope and fall. No traumatic injury from fall, head CT obtained and negative for intracranial hemorrhage. No external signs of trauma. Patient had recent pacemaker placement and was discharged earlier today. He has history of end-stage renal disease and receives hemodialysis on 05/09. No pruritus as that is burning in his routine. He reportedly 30 minutes that laboratory studies reveal normal white blood cell count, hemoglobin is 12.6 which is improved from previous no significant electrolyte abnormalities. Patient does have a lactic of 2.8. This combined with a chest x-ray which is concerning for small left lower lobe pneumonia. Patient will be treated with a dose of antibiotics including azithromycin and cefepime awaiting reevaluation. He will be admitted for telemetry and cardiology consultation. Case discussed with admitting physician who will accept. - Lab Data Result diagrams: 05/10/18 22:42 05/10/18 22:42 Lab Results 05/10/18 05/10/18 05/10/18 Range/Units 22:42 22:42 22:42 WBC 5.2 (3.8-10.6) k/uL RBC 3.85 L (4.30-5.90) m/uL Hgb 12.6 L (13.0-17.5) gm/dL Hct 37.8 L (39.0-53.0) % MCV 98.4 (80.0-100.0) fL MCH 32.8 (25.0-35.0) pg MCHC 33.3 (31.0-37.0) g/dL RDW 17.2 H (11.5-15.5) % Plt Count 225 (150-450) k/uL Neutrophils % 68 % Lymphocytes % 12 % Monocytes % 8 % Eosinophils % 9 % Basophils % 1 % Neutrophils # 3.5 (1.3-7.7) k/uL Lymphocytes # 0.6 L (1.0-4.8) k/uL Monocytes # 0.4 (0-1.0) k/uL Eosinophils # 0.4 (0-0.7) k/uL Basophils # 0.1 (0-0.2) k/uL Anisocytosis Slight Macrocytosis Slight PT (9.0-12.0) sec INR (<1.2) APTT (22.0-30.0) sec Sodium 135 L (137-145) mmol/L Potassium 4.2 (3.5-5.1) mmol/L Chloride 92 L (98-107) mmol/L Carbon Dioxide 28 (22-30) mmol/L Anion Gap 15 mmol/L BUN 35 H (9-20) mg/dL Creatinine 7.69 H* (0.66-1.25) mg/dL Est GFR (CKD-EPI)AfAm 7 (>60 ml/min/1.73 sqM) Est GFR (CKD-EPI)NonAf 6 (>60 ml/min/1.73 sqM) Glucose 42 L* (74-99) mg/dL Plasma Lactic Acid Edmundo 2.8 H* (0.7-2.0) mmol/L Calcium 10.3 H (8.4-10.2) mg/dL Magnesium 2.4 H (1.6-2.3) mg/dL Total Bilirubin 0.5 (0.2-1.3) mg/dL AST 26 (17-59) U/L ALT 12 L (21-72) U/L Alkaline Phosphatase 112 (38-126) U/L NT-Pro-B Natriuret Pep pg/mL Total Protein 7.0 (6.3-8.2) g/dL Albumin 4.2 (3.5-5.0) g/dL 05/10/18 05/10/18 Range/Units 22:42 22:42 WBC (3.8-10.6) k/uL RBC (4.30-5.90) m/uL Hgb (13.0-17.5) gm/dL Hct (39.0-53.0) % MCV (80.0-100.0) fL MCH (25.0-35.0) pg MCHC (31.0-37.0) g/dL RDW (11.5-15.5) % Plt Count (150-450) k/uL Neutrophils % % Lymphocytes % % Monocytes % % Eosinophils % % Basophils % % Neutrophils # (1.3-7.7) k/uL Lymphocytes # (1.0-4.8) k/uL Monocytes # (0-1.0) k/uL Eosinophils # (0-0.7) k/uL Basophils # (0-0.2) k/uL Anisocytosis Macrocytosis PT 10.9 (9.0-12.0) sec INR 1.0 (<1.2) APTT 26.5 (22.0-30.0) sec Sodium (137-145) mmol/L Potassium (3.5-5.1) mmol/L Chloride (98-107) mmol/L Carbon Dioxide (22-30) mmol/L Anion Gap mmol/L BUN (9-20) mg/dL Creatinine (0.66-1.25) mg/dL Est GFR (CKD-EPI)AfAm (>60 ml/min/1.73 sqM) Est GFR (CKD-EPI)NonAf (>60 ml/min/1.73 sqM) Glucose (74-99) mg/dL Plasma Lactic Acid Edmundo (0.7-2.0) mmol/L Calcium (8.4-10.2) mg/dL Magnesium (1.6-2.3) mg/dL Total Bilirubin (0.2-1.3) mg/dL AST (17-59) U/L ALT (21-72) U/L Alkaline Phosphatase (38-126) U/L NT-Pro-B Natriuret Pep 48676 pg/mL Total Protein (6.3-8.2) g/dL Albumin (3.5-5.0) g/dL Disposition Clinical Impression: Pneumonia, Near syncope Disposition: ADMITTED IP TO THIS [facility] Condition: Stable Is patient prescribed a controlled substance at d/c from ED?: No Referrals: Kiel Wang DO [Primary Care Provider] - 1-2 days Decision to Admit Reason: Admit from EC Decision Date: 05/11/18 Decision Time: 01:43
[2018-05-11] MEDS ORDERED: CEFEPIME 2 GM in SODIUM CHLORIDE 0.9% 50 ML IVPB STA (00:22)
[2018-05-11] MEDS ORDERED: AZITHROMYCIN 500 MG in SODIUM CHLORIDE 0.9% 250 ML IVPB STA (00:22)
[2018-05-11] MEDS ORDERED: NALOXONE 0.4 MG/ML 1 ML VIAL IV PRN (01:37)
[2018-05-11] MEDS ORDERED: ACETAMINOPHEN TAB 325 MG TAB PO PRN (01:37)
[2018-05-11] MEDS ORDERED: DEXTROSE 50%-WATER 50 ML SYRINGE IVP STA (02:32)
[2018-05-11 02:40] LABS: Glucose,Whole Blood 54 mg/dL (75-99)
[2018-05-11 03:25] LABS: Glucose,Whole Blood 143 mg/dL (75-99)
[2018-05-11 05:04] LABS: Glucose,Whole Blood 145 mg/dL (75-99)
[2018-05-11 05:30] VITALS: BMI 28.2
[2018-05-11 07:03] LABS: Glucose,Whole Blood 165 mg/dL (75-99)
[2018-05-11] MEDS ORDERED: ceFAZolin IN SWFI 2 GM/20 ML SYRINGE IVP SCH (08:30)
[2018-05-11] MEDS ORDERED: clonazePAM 1 MG TAB PO PRN (08:34)
[2018-05-11] MEDS ORDERED: Insulin Aspart (For Pump) 100 UNIT/ML VIAL SQ-PUMP SCH (08:45)
--- NOTE | 2018-05-11 09:13 | CONS ---
CONSULTATION Mr. Henrry Pulido is a gentleman with type 2 diabetes on insulin pump, hypertension, diabetes, related end-stage renal disease on hemodialysis. He also has a chronic atrial fibrillation and has been on apixaban. Because of slow ventricular rate, he came in and had a single-chamber pacemaker performed by Dr. Albrecht on 05/09/2018 and was discharged on 05/10/2018 which was yesterday. However, after going home while he was going through the garage, he felt dizzy, lightheaded and he knew he was going to pass out. He did not really lose consciousness but had an episode when everything blacked out and he fell down but did not hurt himself. Patient insists that he did not really lose consciousness. He seems to have generalized weakness. It is possible he may have some orthostatic hypotension. After arrival, he received almost 500 mL of fluid and he feels better. When he had this episode, he did not really lose consciousness. The pacemaker appears to be functioning well. Chest x-ray suggests that the pacemaker lead position is unchanged. The site is clean and dry. He is pacing with a backup rate of 60 beats per minute. PAST MEDICAL HISTORY: 1. Type 2 diabetes with end-stage renal disease on hemodialysis. 2. Sleep apnea syndrome. 3. Chronic atrial fibrillation sick sinus syndrome and symptomatic bradycardia for which he had a single-chamber permanent pacemaker performed yesterday. 4. History of some orthopedic surgery. 5. There is a question of previous CVA. MEDICATIONS: At home include Keflex 500 mg t.i.d., Singulair 10 mg daily, Flomax 0.4 mg daily, amlodipine 10 mg daily, and he also takes hydralazine and has an insulin pump, Lasix 40 mg b.i.d. EXAMINATION: On examination blood pressure is 120/42 mmHg, on standing pressure goes down to 108/68. Patient felt slightly dizzy. HEENT: Unremarkable. Fundus was not examined by me. Neck is supple. There is no JVD. I do not hear a carotid bruit. Heart exam reveals S1, S2 heard normally with a short systolic murmur. Lungs reveal diminished air entry. Abdomen is soft, nontender. Lower extremities reveal diminished pulses. Central nervous system grossly no focal deficits. IMPRESSION: 1. Episode of dizziness and falling, probably orthostatic hypotension. Patient has a normally functioning single-chamber pacemaker. 2. End-stage renal disease on hemodialysis with underlying type 2 diabetes and insulin pump. 3. Chronic atrial fibrillation with sick sinus syndrome with a backup pacemaker that was placed 48 hours ago. RECOMMENDATIONS: I am recommending that we will start him on midodrine 5 mg t.i.d. and discontinue his amlodipine altogether. It is quite possible he may have had some hypoglycemia as well because the blood sugar was low when he came into the emergency room at 40-42 or so requiring D50. Hypoglycemia could also be a component in this. We will seek a nephrology input. Add midodrine and discontinue amlodipine. Hopefully patient can be discharged today if he has no further issues or symptoms. I discussed my thoughts in detail with the patient. Thank you very much for the consult. LESLIE / JOHNATHAN: [id number] /
[2018-05-11] MEDS: MIDODRINE 5 MG TAB PO SCH ×3 (10:04→17:06)
[2018-05-11] MEDS: APIXABAN 2.5 MG TABLET PO SCH ×2 (10:04→20:22)
[2018-05-11] MEDS: clonazePAM 1 MG TAB PO SCH (10:04)
[2018-05-11] MEDS: ceFAZolin 1,000 MG in DEXTROSE/WATER 1 50ML.BAG IVPB SCH ×3 (10:05→23:32)
--- NOTE | 2018-05-11 11:30 | P.NPCON ---
History of Present Illness - Reason for Consult end stage renal disease - History of Present Illness Reason for consultation: End-stage renal disease History of present illness: Patient is a 73-year-old male seen in renal consultation for end-stage renal disease. He is maintained on hemodialysis on a Saturday schedule. Patient was just discharged from the hospital yesterday after getting a pacemaker placed. However once the patient went home he had multiple episodes of syncope and was brought back to the hospital. His lactic acid was 2.8 on admission and he did receive 500 mL bolus in the ER. Lactic acid improved to 1.0. His blood sugar was also low at 42 on admission. Patient states he did not check his blood pressure at home. He does have an insulin pump. No fever or chills. No vomiting or diarrhea. No chest pain or shortness of breath. Last hemodialysis was on Saturday. Patient's standing blood pressure was 108/68 and supine was 121/42. Vital signs are stable. General: The patient appeared well nourished and normally developed. HEENT: Head exam is unremarkable. Neck is without jugular venous distension. LUNGS: Lungs are clear to auscultation and percussion. Breath sounds decreased. HEART: Rate and Rhythm are regular. First and second heart sounds normal. No murmurs, rubs or gallops. ABDOMEN: Abdominal exam reveals normal bowel sounds. Non-tender and non- distended. No evidence of peritonitis. EXTREMITITES: No clubbing, cyanosis, or edema. Past Medical History Past Medical History: COPD, Diabetes Mellitus, Dialysis, Hypertension, Prostate Disorder, Renal Disease, Sleep Apnea/CPAP/BIPAP Additional Past Medical History / Comment(s): BPH History of Any Multi-Drug Resistant Organisms: None Reported Past Surgical History: Heart Catheterization, Hernia Repair, Orthopedic Surgery , Pacemaker Additional Past Surgical History / Comment(s): L fistula 05/29 AV fistula creation 05/29/2016 [facility] Past Anesthesia/Blood Transfusion Reactions: No Reported Reaction Type of Cardiac Device: Permanent Pacemaker Device Placement Date:: 05/10/2018 Past Psychological History: Depression Smoking Status: Former smoker Past Alcohol Use History: Occasional Past Drug Use History: None Reported - Past Family History Father History Unknown: Yes Mother History Unknown: Yes Brother(s) History Unknown: Yes Family Medical History: COPD, Liver Disease Daughter(s) History Unknown: Yes Medications and Allergies Home Medications Medication Instructions Recorded Confirmed Type DULoxetine HCL [Cymbalta] 60 mg PO HS 02/20/17 05/11/18 History Furosemide [Lasix] 40 mg PO BID 02/20/17 05/11/18 History Insulin Aspart (For Pump) [NovoLOG 0.01 unit SQ-PUMP CONTINUOUS 02/20/17 History (For Pump)] hydrALAZINE HCL [Apresoline] 25 mg PO TID 02/20/17 05/11/18 History Apixaban [Eliquis] 5 mg PO BID 05/08/18 05/11/18 History HYDROcodone/APAP 5-325MG [[place] 1 tab PO DAILY PRN 05/08/18 05/11/18 History 5-325] clonazePAM 1 - 2 mg PO HS PRN 05/08/18 05/11/18 History clonazePAM 1 mg PO DAILY 05/08/18 05/11/18 History Calcium Acetate [PhosLo] 667 mg PO BID-W/MEALS cap 05/10/18 05/11/18 Rx Cephalexin [Keflex] 500 mg PO Q8HR #10 cap 05/10/18 05/11/18 Rx Losartan [Cozaar] 50 mg PO DAILY tab 05/10/18 05/11/18 Rx Montelukast [Singulair] 10 mg PO HS tab 05/10/18 05/11/18 Rx Tamsulosin [Flomax] 0.4 mg PO PC-BRKFST cap.er.24h 05/10/18 05/11/18 Rx amLODIPine [Norvasc] 10 mg PO DAILY tab 05/10/18 05/11/18 Rx Allergies Allergy/AdvReac Type Severity Reaction Status Date / Time Sulfa (Sulfonamide Allergy Rash/Hives Verified 05/11/18 09:56 Antibiotics) levofloxacin [From Levaquin] AdvReac Unknown Verified 05/11/18 09:56 Physical Exam Vitals: Vital Signs Temp Pulse Pulse Pulse Pulse Pulse Resp 05/11/18 08:00 97.4 F L 61 18 05/11/18 07:30 75 73 05/11/18 04:48 97.5 F L 63 16 05/11/18 04:32 98 F 60 20 05/11/18 03:00 61 16 05/11/18 02:00 62 18 05/11/18 01:00 97.7 F 60 16 05/10/18 23:57 60 16 05/10/18 22:48 67 05/10/18 22:47 20 05/10/18 22:38 97.6 F 66 16 BP BP BP BP Pulse Ox 05/11/18 08:00 112/54 99 05/11/18 07:30 108/68 121/42 05/11/18 04:48 136/63 99 05/11/18 04:32 144/62 97 05/11/18 03:00 148/59 98 05/11/18 02:00 140/60 98 05/11/18 01:00 140/59 98 05/10/18 23:57 109/58 100 05/10/18 22:48 05/10/18 22:47 05/10/18 22:38 112/56 97 Intake and Output 05/10/18 05/11/18 05/11/18 22:59 06:59 14:59 Intake Total 300 Balance 300 Intake: Intake, IV Titration 300 Amount Azithromycin 500 mg In 250 Sodium Chloride 0.9% 250 ml @ 250 mls/hr IVPB ONCE STA Rx#:[id number] Cefepime 2 gm In Sodium 50 Chloride 0.9% 50 ml @ 100 mls/hr IVPB ONCE STA Rx# :[id number] Other: Voiding Method Toilet Weight 94.347 kg 94.347 kg Results - Lab Results Most recent lab results Calcium 10.3 mg/dL (8.4-10.2) H 05/10/18 22:42 Magnesium 2.4 mg/dL (1.6-2.3) H 05/10/18 22:42 05/10/18 22:42 05/10/18 22:42 Assessment and Plan Plan: Assessment: 1. End-stage renal disease maintained on hemodialysis on a Saturday schedule. 2. Syncopal episodes. Initially these were attributed to severe bradycardia but the patient had a pacemaker placed yesterday. According to cardiology for pacemaker seems to be fine. This component of orthostatic hypotension and also concern for hypoglycemia. 3. Chronic kidney disease mineral bone disease maintained on positive. 4. Diabetes mellitus. 5. Hypercalcemia secondary to PhosLo. Plan: Hemodialysis tomorrow. Monitor blood sugars. Avoid hypoglycemia. With labile blood sugars, patient may benefit with an alternate regimen of insulin rather than an insulin pump. He follows with endocrinology as an outpatient. Discontinue PhosLo. Add Renvela. Monitor orthostatics. Midodrine also added by cardiology today. Monitor blood pressures. Typically his blood pressure runs high. Thank you for the consultation. I will continue to follow patient with you during his hospital stay.
[2018-05-11 11:55] LABS: Glucose,Whole Blood 332 mg/dL (75-99)
[2018-05-11] MEDS: INSULIN ASPART 100 UNIT/ML 1 ML 10 ML VIAL SQ SCH ×5 (13:00→20:27)
[2018-05-11] MEDS: INSULIN DETEMIR 100 UNIT/ML 10 ML VIAL SQ SCH (13:01)
[2018-05-11] MEDS: SEVELAMER 800 MG TAB PO SCH ×2 (13:05→20:22)
--- NOTE | 2018-05-11 15:27 | P.CNNES ---
History of Present Illness Consult date: 05/11/18 Reason for Consult: Patient being evaluated for near syncope and generalized weakness. History of Present Illness: This patient is a 73-year-old right-handed white male who was brought into the emergency room at [facility] yesterday for evaluation of generalized weakness and near syncope. Patient was seen in the emergency room by Dr. Todd. He had mentioned to the ER physician that he had a pacemaker placement performed by Dr. Albrecht on 05/09/2018. He was discharged home earlier in the day on 05/10/2018. Apparently after he reached home he was getting up out of his car and in the garage when he suddenly became lightheaded and collapse. He denies any loss of consciousness with the episode. He had history of chronic atrial fibrillation and had been on Eliquis. He was noted to have a low ventricular rate and was advised to undergo single-chamber pacemaker placement. As noted he had the procedure done by Dr. Albrecht successfully and was discharged. Patient states he was unable to get up off of the garage floor due to his heavy size and weight. His tried to assist him but could not. They were able to call a friend who came over and helped his get him back into the house. The patient states that since having the pacemaker he has had several episodes of dizziness. He describes it as a sense of lightheadedness and near syncope. He denied any severe headache pain associated with these episodes. The patient was brought into the emergency room yesterday for further evaluation. His blood pressure on arrival was 112/ 56. According to the patient this is a low blood pressure reading for him. He has a history of end-stage renal disease and is on hemodialysis 3 days a week. He also uses an insulin pump. He has been diabetic for over 15 years. The patient denies any previous history of TIA or stroke. He does have history of sleep apnea and does use of BiPAP. He has been on hemodialysis for the past 2 years. His most recent hemoglobin A1c was noted to be 6.2. His pacemaker was analyzed and seems to be functioning well. He was seen by cardiology today and was evaluated by Dr. Naylor. He is recommending the patient to be started on Midodrine 5 mg 3 times a day. He was also noted in the emergency room is having low blood sugar readings in the range of 40-42. He did require some D50. Severe hypoglycemia could've contributed to his sense of lightheadedness and near syncope. We are recommending the patient I control of his diabetes and blood sugars. He was sent for a computed tomography scan of the brain during this evaluation yesterday and completed the CT of the brain. CAT scan of the brain revealed cerebral atrophy with no acute intracranial abnormality noted. There was no significant changes compared to her previous CAT scan done in August 2013. We've reviewed all of these test results today with the patient in detail. Patient states that he has had this symptoms of lightheadedness only recently. As noted his blood sugars were significantly lower in the ER yesterday and he is on insulin pump. Recommendation follow-up with his deputy of counter intelligence for further adjustments given the possible hypoglycemic readings. We have recommended physical therapy consultation for the patient. We will continue close neurological follow-up with the patient during this admission. His overall prognosis at this time remains guarded. Neurology is now been consulted for further evaluation and recommendations. Review of Systems Constitutional: Denies chills, Denies fever Eyes: denies blurred vision, denies pain Ears, nose, mouth and throat: Denies headache, Denies sore throat Cardiovascular: Denies chest pain, Denies shortness of breath Respiratory: Denies cough Gastrointestinal: Denies abdominal pain, Denies diarrhea, Denies nausea, Denies vomiting Musculoskeletal: Denies myalgias Integumentary: Denies pruritus, Denies rash Neurological: Reports balance difficulties, Reports gait dysfunction, Reports paresthesias, Reports tingling, Denies numbness, Denies weakness Psychiatric: Denies anxiety, Denies depression Endocrine: Denies fatigue, Denies weight change Past Medical History Past Medical History: COPD, Diabetes Mellitus, Dialysis, Hypertension, Prostate Disorder, Renal Disease, Sleep Apnea/CPAP/BIPAP Additional Past Medical History / Comment(s): BPH History of Any Multi-Drug Resistant Organisms: None Reported Past Surgical History: Heart Catheterization, Hernia Repair, Orthopedic Surgery , Pacemaker Additional Past Surgical History / Comment(s): L fistula 05/29 AV fistula creation 05/29/2016 [facility] Past Anesthesia/Blood Transfusion Reactions: No Reported Reaction Type of Cardiac Device: Permanent Pacemaker Device Placement Date:: 05/10/2018 Past Psychological History: Depression Smoking Status: Former smoker Past Alcohol Use History: Occasional Past Drug Use History: None Reported - Past Family History Father History Unknown: Yes Mother History Unknown: Yes Brother(s) History Unknown: Yes Family Medical History: COPD, Liver Disease Daughter(s) History Unknown: Yes Medications and Allergies Home Medications Medication Instructions Recorded Confirmed Type DULoxetine HCL [Cymbalta] 60 mg PO HS 02/20/17 05/11/18 History Furosemide [Lasix] 40 mg PO BID 02/20/17 05/11/18 History Insulin Aspart (For Pump) [NovoLOG 0.01 unit SQ-PUMP CONTINUOUS 02/20/17 History (For Pump)] hydrALAZINE HCL [Apresoline] 25 mg PO TID 02/20/17 05/11/18 History Apixaban [Eliquis] 5 mg PO BID 05/08/18 05/11/18 History HYDROcodone/APAP 5-325MG [[place] 1 tab PO DAILY PRN 05/08/18 05/11/18 History 5-325] clonazePAM 1 - 2 mg PO HS PRN 05/08/18 05/11/18 History clonazePAM 1 mg PO DAILY 05/08/18 05/11/18 History Calcium Acetate [PhosLo] 667 mg PO BID-W/MEALS cap 05/10/18 05/11/18 Rx Cephalexin [Keflex] 500 mg PO Q8HR #10 cap 05/10/18 05/11/18 Rx Losartan [Cozaar] 50 mg PO DAILY tab 05/10/18 05/11/18 Rx Montelukast [Singulair] 10 mg PO HS tab 05/10/18 05/11/18 Rx Tamsulosin [Flomax] 0.4 mg PO PC-BRKFST cap.er.24h 05/10/18 05/11/18 Rx amLODIPine [Norvasc] 10 mg PO DAILY tab 05/10/18 05/11/18 Rx Allergies Allergy/AdvReac Type Severity Reaction Status Date / Time Sulfa (Sulfonamide Allergy Rash/Hives Verified 05/11/18 09:56 Antibiotics) levofloxacin [From Levaquin] AdvReac Unknown Verified 05/11/18 09:56 Physical Examination - Vital Signs Vital Signs: Vital Signs Temp Pulse Pulse Pulse Pulse Pulse Resp 05/11/18 12:00 58 L 16 05/11/18 08:00 97.4 F L 61 18 05/11/18 07:30 75 73 05/11/18 04:48 97.5 F L 63 16 05/11/18 04:32 98 F 60 20 05/11/18 03:00 61 16 05/11/18 02:00 62 18 05/11/18 01:00 97.7 F 60 16 05/10/18 23:57 60 16 05/10/18 22:48 67 05/10/18 22:47 20 05/10/18 22:38 97.6 F 66 16 BP BP BP BP Pulse Ox 05/11/18 12:00 117/65 92 L 05/11/18 08:00 112/54 99 05/11/18 07:30 108/68 121/42 05/11/18 04:48 136/63 99 05/11/18 04:32 144/62 97 05/11/18 03:00 148/59 98 05/11/18 02:00 140/60 98 05/11/18 01:00 140/59 98 05/10/18 23:57 109/58 100 05/10/18 22:48 05/10/18 22:47 05/10/18 22:38 112/56 97 Intake and Output 05/11/18 05/11/18 05/11/18 06:59 14:59 22:59 Intake Total 300 Balance 300 Intake: Intake, IV Titration 300 Amount Azithromycin 500 mg In 250 Sodium Chloride 0.9% 250 ml @ 250 mls/hr IVPB ONCE STA Rx#:[id number] Cefepime 2 gm In Sodium 50 Chloride 0.9% 50 ml @ 100 mls/hr IVPB ONCE STA Rx# :[id number] Other: Voiding Method Toilet Weight 94.347 kg - Constitutional General appearance: average body habitus, cooperative - EENT EENT: PERRL, mucous membranes moist - Respiratory Respiratory: lungs clear, normal breath sounds - Cardiovascular Cardiovascular: regular rate, normal S1, normal S2 Extremities: no peripheral edema bilaterally - Gastrointestinal Gastrointestinal: normoactive bowel sounds - Integumentary Integumentary: normal - Neurologic Cranial nerve examination: PERRL, EOMI, VFF, V1/V2/V3 grossly intact, face symmetric, intact shoulder shrug, intact gag reflex, intact corneal reflex, normal palatal elevation Speech examination: intact Sensorimotor examination: intact Motor examination - right side: 4/5: biceps, triceps, wrist flexion, wrist extension, pressfitter, hip flexors, knee extensors, dorsiflexion, toe extension (EHL) , plantarflexion Motor examination - left side: 4/5: biceps, triceps, wrist flexion, wrist extension, pressfitter, hip flexors, knee extensors, dorsiflexion, toe extension (EHL) , plantarflexion Reflex and gait examination: intact Reflexes: 1+: ankle, bicep, knee, tricep - Musculoskeletal Musculoskeletal: no pain - Psychiatric Psychiatric: mood/affect appropriate, cooperative Results - Laboratory Findings CBC and BMP: 05/10/18 22:42 05/10/18 22:42 Abnormal Lab Findings: Abnormal Labs 05/10/18 05/10/18 05/10/18 22:42 22:42 22:42 RBC 3.85 L Hgb 12.6 L Hct 37.8 L RDW 17.2 H Lymphocytes # 0.6 L Sodium 135 L Chloride 92 L BUN 35 H Creatinine 7.69 H* Glucose 42 L* POC Glucose (mg/dL) Plasma Lactic Acid Edmundo 2.8 H* Calcium 10.3 H Magnesium 2.4 H ALT 12 L 05/11/18 05/11/18 05/11/18 02:28 03:23 04:22 RBC Hgb Hct RDW Lymphocytes # Sodium Chloride BUN Creatinine Glucose POC Glucose (mg/dL) 54 L 143 H 145 H Plasma Lactic Acid Edmundo Calcium Magnesium ALT 05/11/18 05/11/18 07:00 11:54 RBC Hgb Hct RDW Lymphocytes # Sodium Chloride BUN Creatinine Glucose POC Glucose (mg/dL) 165 H 332 H Plasma Lactic Acid Edmundo Calcium Magnesium ALT Assessment and Plan (1) Near syncope Current Visit: Yes Status: Acute Code(s): R55 - SYNCOPE AND COLLAPSE SNOMED Code(s): 811212887 (2) S/P placement of cardiac pacemaker Current Visit: Yes Status: Acute Code(s): Z95.0 - PRESENCE OF CARDIAC PACEMAKER SNOMED Code(s): 913775557 (3) History of hemodialysis Current Visit: Yes Status: Acute Code(s): Z92.89 - PERSONAL HISTORY OF OTHER MEDICAL TREATMENT SNOMED Code(s): 900783628 (4) ARF (acute renal failure) Current Visit: No Status: Acute Code(s): N17.9 - ACUTE KIDNEY FAILURE, UNSPECIFIED SNOMED Code(s): 28776666 Plan: This patient is a 73-year-old male admitted to hospital after recent episode of near syncope and collapse after having a recent single-chamber pacemaker placement performed by Dr. Albrecht on 05/09/2018. Patient had gone home and had an episode of near syncope and collapse. He has a history of chronic atrial fibrillation with sick sinus syndrome. He was seen by the ER physician at [facility] yesterday and was evaluated by Dr. Todd. He was sent for a computed tomography scan of the brain results of which are noted above. CAT scan failed to reveal any evidence of acute stroke. He was admitted to hospital and was seen by cardiology today who have diagnosed him with probable orthostatic hypotension. He has been started on Midodrine for further treatment of possible orthostatic hypotension. He was also noted to have significant hypoglycemia associated with this episode. He does have a history of diabetes mellitus and is on insulin pump. We are recommending tight control of his blood sugars. He has had no further hypoglycemic reaction since admission. We reviewed the results of his CAT scan of the brain with the patient. Given his history of having been on hemodialysis for the past 2 years this could be a contributing factor for disequilibrium syndrome. We recommend he continue with some physical therapy exercises at home. We will consult with physical therapy as well during this admission. We have reviewed the recommendations from cardiology and will continue to await their further recommendations. His neurological examination today is nonfocal. We will await further evaluation from physical therapy as to the need for possible subacute rehab. His overall prognosis at this time remains guarded. Time with Patient: Greater than 30
[2018-05-11 16:48] LABS: Glucose,Whole Blood 180 mg/dL (75-99)
[2018-05-11] MEDS ORDERED: CALCIUM ACETATE 667 MG CAP PO SCH (17:30)
[2018-05-11 21:00] LABS: Glucose,Whole Blood 80 mg/dL (75-99)
[2018-05-11] MEDS ORDERED: DULoxetine HCL 60 MG CAPSULE.DR PO SCH (21:00)
[2018-05-11] MEDS ORDERED: MONTELUKAST 10 MG TAB PO SCH (21:00)
--- NOTE | 2018-05-11 23:26 | P.HPIM ---
History of Present Illness H&P Date: 05/11/18 Chief Complaint: orthostatic hypotension. 73-year-old male one of Dr. Wang patient was seen at [facility] and admitted on Saturday last week because of severe fatigue tiredness lightheadedness presyncope and uremia. Patient had missed his dialysis at the time he was seen Dr. Morgan in the office on Saturday for 30 days heart monitor and through his hospitalization at [facility] found to have severe bradycardia with sick sinus syndrome patient ended up being transferred to [facility] for a single chamber pacemaker which was done by Dr. gonzalez and he stated hospital overnight he was evaluated yesterday by myself as well as by his key entry operator and the decision was made to discharge the patient home as to follow-up with him as an outpatient, patient ended up coming back to the emergency department today in the morning with generalized weakness and inability to ambulate and with recurrent syncope with head trauma, patient stated that he left yesterday and fell on his driveway and was able to get home and also he fell again at home and his called EMS to bring him back to the Hospital he ended up seen in the ER and he was admitted to the hospital for observation cardiology consultation was obtained. Review of Systems Constitutional: Reports fatigue, Reports weakness, Denies anorexia, Denies chronic headaches Eyes: denies blurred vision, denies bulging eye, denies decreased vision Ears: deny: decreased hearing Ears, nose, mouth and throat: Denies dysphagia, Denies neck lump Cardiovascular: Reports decreased exercise tolerance, Reports dyspnea on exertion, Reports high blood pressure, Reports shortness of breath, Reports syncope, Denies chest pain, Denies rapid heart beat Respiratory: Reports sleep apnea, Reports snoring, Denies congestion, Denies cough with sputum, Denies home oxygen, Denies wheezing Gastrointestinal: Denies abdominal pain, Denies BRBPR, Denies heartburn, Denies melena, Denies nausea, Denies vomiting Genitourinary: Denies dysuria Musculoskeletal: Reports frequent falls, Reports gait dysfunction Musculoskeletal: absent: ankle pain, ankle stiffness, ankle swelling, elbow pain , elbow stiffness, elbow swelling, foot pain, foot stiffness, foot swelling, hand pain, hand stiffness, hand swelling, hip pain, hip stiffness, hip swelling , knee pain, knee stiffness, knee swelling, shoulder pain, shoulder stiffness, shoulder swelling, wrist pain, wrist stiffness, wrist swelling Integumentary: Denies pruritus, Denies rash Neurological: Reports balance difficulties, Reports gait dysfunction, Reports weakness Psychiatric: Reports anxiety, Reports depression, Reports sleep disturbances, Denies sadness/tearfulness, Denies suicidal ideation Endocrine: Denies fatigue, Denies weight change Past Medical History Past Medical History: COPD, Diabetes Mellitus, Dialysis, Hypertension, Prostate Disorder, Renal Disease, Sleep Apnea/CPAP/BIPAP Additional Past Medical History / Comment(s): BPH History of Any Multi-Drug Resistant Organisms: None Reported Past Surgical History: Heart Catheterization, Hernia Repair, Orthopedic Surgery , Pacemaker Additional Past Surgical History / Comment(s): L fistula 05/29 AV fistula creation 05/29/2016 [facility] Past Anesthesia/Blood Transfusion Reactions: No Reported Reaction Type of Cardiac Device: Permanent Pacemaker Device Placement Date:: 05/10/2018 Past Psychological History: Depression Smoking Status: Former smoker Past Alcohol Use History: Occasional Past Drug Use History: None Reported - Past Family History Father History Unknown: Yes Mother History Unknown: Yes Brother(s) History Unknown: Yes Family Medical History: COPD, Liver Disease Daughter(s) History Unknown: Yes Medications and Allergies Home Medications Medication Instructions Recorded Confirmed Type DULoxetine HCL [Cymbalta] 60 mg PO HS 02/20/17 05/11/18 History Furosemide [Lasix] 40 mg PO BID 02/20/17 05/11/18 History Insulin Aspart (For Pump) [NovoLOG 0.01 unit SQ-PUMP CONTINUOUS 02/20/17 History (For Pump)] hydrALAZINE HCL [Apresoline] 25 mg PO TID 02/20/17 05/11/18 History Apixaban [Eliquis] 5 mg PO BID 05/08/18 05/11/18 History HYDROcodone/APAP 5-325MG [[place] 1 tab PO DAILY PRN 05/08/18 05/11/18 History 5-325] clonazePAM 1 - 2 mg PO HS PRN 05/08/18 05/11/18 History clonazePAM 1 mg PO DAILY 05/08/18 05/11/18 History Calcium Acetate [PhosLo] 667 mg PO BID-W/MEALS cap 05/10/18 05/11/18 Rx Cephalexin [Keflex] 500 mg PO Q8HR #10 cap 05/10/18 05/11/18 Rx Losartan [Cozaar] 50 mg PO DAILY tab 05/10/18 05/11/18 Rx Montelukast [Singulair] 10 mg PO HS tab 05/10/18 05/11/18 Rx Tamsulosin [Flomax] 0.4 mg PO PC-BRKFST cap.er.24h 05/10/18 05/11/18 Rx amLODIPine [Norvasc] 10 mg PO DAILY tab 05/10/18 05/11/18 Rx Allergies Allergy/AdvReac Type Severity Reaction Status Date / Time Sulfa (Sulfonamide Allergy Rash/Hives Verified 05/11/18 09:56 Antibiotics) levofloxacin [From Levaquin] AdvReac Unknown Verified 05/11/18 09:56 Physical Exam Vitals: Vital Signs Temp Pulse Pulse Pulse Pulse Pulse Resp 05/11/18 08:00 97.4 F L 61 18 05/11/18 07:30 75 73 05/11/18 04:48 97.5 F L 63 16 05/11/18 04:32 98 F 60 20 05/11/18 03:00 61 16 05/11/18 02:00 62 18 05/11/18 01:00 97.7 F 60 16 05/10/18 23:57 60 16 05/10/18 22:48 67 05/10/18 22:47 20 05/10/18 22:38 97.6 F 66 16 BP BP BP BP Pulse Ox 05/11/18 08:00 112/54 99 05/11/18 07:30 108/68 121/42 05/11/18 04:48 136/63 99 05/11/18 04:32 144/62 97 05/11/18 03:00 148/59 98 05/11/18 02:00 140/60 98 05/11/18 01:00 140/59 98 05/10/18 23:57 109/58 100 05/10/18 22:48 05/10/18 22:47 05/10/18 22:38 112/56 97 Intake and Output 05/10/18 05/11/18 05/11/18 22:59 06:59 14:59 Intake Total 300 Balance 300 Intake: Intake, IV Titration 300 Amount Azithromycin 500 mg In 250 Sodium Chloride 0.9% 250 ml @ 250 mls/hr IVPB ONCE STA Rx#:[id number] Cefepime 2 gm In Sodium 50 Chloride 0.9% 50 ml @ 100 mls/hr IVPB ONCE STA Rx# :[id number] Other: Voiding Method Toilet Weight 94.347 kg 94.347 kg - Constitutional General appearance: average body habitus, no acute distress - EENT Eyes: anicteric sclerae, EOMI, PERRLA, no ptosis, no scleral icterus, normal appearance ENT: hearing grossly normal, NA/AT, normal oropharynx Ears: bilateral: normal - Neck Neck: no lymphadenopathy, normal ROM, no rigidity, no stridor, no thyromegaly Carotids: bilateral: upstroke normal Thyroid: bilateral: normal size - Respiratory Respiratory: bilateral: diminished, negative: dullness, rales, rhonchi, wheezing - Cardiovascular Rhythm: other (paced rhythm) Heart sounds: normal: S1, S2 Abnormal Heart Sounds: systolic murmur - Gastrointestinal General gastrointestinal: normal bowel sounds, soft, no splenomegaly, no tenderness, no umbilical hernia - Integumentary Integumentary: normal, normal turgor - Neurologic Neurologic: CNII-XII intact - Musculoskeletal Musculoskeletal: generalized weakness, strength equal bilaterally - Psychiatric Psychiatric: A&O x's 3, appropriate affect, intact judgment & insight Results CBC & Chem 7: 05/10/18 22:42 05/10/18 22:42 Labs: Abnormal Lab Results - Last 24 Hours (Table) 05/10/18 05/10/18 05/10/18 Range/Units 22:42 22:42 22:42 RBC 3.85 L (4.30-5.90) m/uL Hgb 12.6 L (13.0-17.5) gm/dL Hct 37.8 L (39.0-53.0) % RDW 17.2 H (11.5-15.5) % Lymphocytes # 0.6 L (1.0-4.8) k/uL Sodium 135 L (137-145) mmol/L Chloride 92 L (98-107) mmol/L BUN 35 H (9-20) mg/dL Creatinine 7.69 H* (0.66-1.25) mg/dL Glucose 42 L* (74-99) mg/dL POC Glucose (mg/dL) (75-99) mg/dL Plasma Lactic Acid Edmundo 2.8 H* (0.7-2.0) mmol/L Calcium 10.3 H (8.4-10.2) mg/dL Magnesium 2.4 H (1.6-2.3) mg/dL ALT 12 L (21-72) U/L 05/11/18 05/11/18 05/11/18 Range/Units 02:28 03:23 04:22 RBC (4.30-5.90) m/uL Hgb (13.0-17.5) gm/dL Hct (39.0-53.0) % RDW (11.5-15.5) % Lymphocytes # (1.0-4.8) k/uL Sodium (137-145) mmol/L Chloride (98-107) mmol/L BUN (9-20) mg/dL Creatinine (0.66-1.25) mg/dL Glucose (74-99) mg/dL POC Glucose (mg/dL) 54 L 143 H 145 H (75-99) mg/dL Plasma Lactic Acid Edmundo (0.7-2.0) mmol/L Calcium (8.4-10.2) mg/dL Magnesium (1.6-2.3) mg/dL ALT (21-72) U/L 05/11/18 Range/Units 07:00 RBC (4.30-5.90) m/uL Hgb (13.0-17.5) gm/dL Hct (39.0-53.0) % RDW (11.5-15.5) % Lymphocytes # (1.0-4.8) k/uL Sodium (137-145) mmol/L Chloride (98-107) mmol/L BUN (9-20) mg/dL Creatinine (0.66-1.25) mg/dL Glucose (74-99) mg/dL POC Glucose (mg/dL) 165 H (75-99) mg/dL Plasma Lactic Acid Edmundo (0.7-2.0) mmol/L Calcium (8.4-10.2) mg/dL Magnesium (1.6-2.3) mg/dL ALT (21-72) U/L Thrombosis Risk Factor Assmnt - DVT/VTE Prophylaxis DVT/VTE Prophylaxis: Mechanical Prophylaxis ordered - Choose All That Apply Any of the Below Risk Factors Present?: Yes Each Factor Represents 1 point: Abnormal pulmonary function (COPD), Obesity ( BMI >25) Other Risk Factors: Yes Each Risk Factor Represents 2 Points: Age 61-74 years Thrombosis Risk Factor Assessment Total Risk Factor Score: 4 Thrombosis Risk Factor Assessment Level: Moderate Risk Assessment and Plan Assessment: Assessment and plan: 1. Recurrent presyncope with falls and closed head injury likely related to orthostatic hypotension. Discontinue oral antihypertensive medicines and start the patient on Midodrin 5 mg orally for 3 times every day. 2. Sick sinus syndrome status post single-chamber permanent pacemaker placement that was done 2 days ago. Pacemaker appears to be working fine without any evidence of acute issues cardiology to evaluate. 3.End-stage renal disease on hemodialysis Mondays. 4. insulin-dependent diabetes: On insulin pump continue current management continue Accu-Chek with sliding scales. 5. cardiomyopathy. Stable at this time. 6. severe COPD. Has been on Pulmicort and DuoNeb still on Singulair and O2. 7. Hypertension and hypertensive cardiovascular disease. In view of the patient syncope hold amlodipine, losartan, hydralazine, start the patient on Midrin for now because of possible orthostatic hypotension. 8 BPH. Hold off Flomax. 9. chronic depression. Has been on Cymbalta 60 mg daily. 10. obstructive sleep apnea. Has been using BiPAP. 11. GI prophylaxis. Patient be on Pepcid 20 mg daily. 12. DVT prophylaxis. Continue patient on Eliquis. 13. Observation.
[2018-05-12 07:09] LABS: Glucose,Whole Blood 143 mg/dL (75-99)
[2018-05-12 07:29] VITALS: RESP 18
[2018-05-12] MEDS: INSULIN ASPART 100 UNIT/ML 1 ML 10 ML VIAL SQ SCH ×6 (08:37→17:31)
[2018-05-12] MEDS: SEVELAMER 800 MG TAB PO SCH ×3 (08:38→17:31)
[2018-05-12] MEDS: clonazePAM 1 MG TAB PO SCH (08:38)
[2018-05-12] MEDS: APIXABAN 2.5 MG TABLET PO SCH (08:38)
[2018-05-12] MEDS: INSULIN DETEMIR 100 UNIT/ML 10 ML VIAL SQ SCH (08:38)
[2018-05-12] MEDS: MIDODRINE 5 MG TAB PO SCH ×3 (08:38→17:27)
[2018-05-12] MEDS: ceFAZolin 1,000 MG in DEXTROSE/WATER 1 50ML.BAG IVPB SCH ×2 (08:39→16:13)
[2018-05-12 09:02] LABS: Anisocytosis Slight; Basophils # (A) 0.1 k/uL (0-0.2); Basophils % (A) 1 %; Eosinophils # (A) 0.8 k/uL (0-0.7); Eosinophils % (A) 13 %; HCT 35.5 % (39.0-53.0); HGB 11.3 gm/dL (13.0-17.5); Hypochromasia Slight; Lymphocytes % (A) 16 %; MCH 32.6 pg (25.0-35.0); MCV 102.1 fL (80.0-100.0); Macrocytosis Moderate; Mean Platelet Volume 8.6; Monocytes # (A) 0.5 k/uL (0-1.0); Monocytes % (A) 9 %; Neutrophils # (A) 3.5 k/uL (1.3-7.7); Neutrophils % (A) 57 %; Platelet Count 212 k/uL (150-450); RBC 3.48 m/uL (4.30-5.90); RDW 16.9 % (11.5-15.5); WBC 6.1 k/uL (3.8-10.6)
[2018-05-12 09:25] LABS: Albumin 3.4 g/dL (3.5-5.0); Calcium 9.4 mg/dL (8.4-10.2); Magnesium 2.2 mg/dL (1.6-2.3); Potassium 5.5 mmol/L (3.5-5.1); Total Bilirubin 0.6 mg/dL (0.2-1.3)
--- NOTE | 2018-05-12 10:42 | PN ---
PROGRESS NOTE Mr. Pulido is a 73-year-old male, end-stage renal disease, on hemodialysis, history of diabetes mellitus, history of atrial fibrillation who had a permanent pacemaker implantation recently, who presented with symptoms of dizziness and presyncope. His blood pressure was low and he had evidence of low blood sugar. He is feeling better today. His breathing is stable. He denies any dizziness, palpitation. He denies any nausea. He is ambulating in his room without any difficulty. He continues to be at this time on Eliquis 2.5 mg twice a day, insulin, midodrine 5 mg 3 times a day. PHYSICAL EXAMINATION: Blood pressure running in the 130s to 160s with a heart in the 60s. LUNGS: Clear. HEART: Regular rate and rhythm, S1, S2. No S3. No rub. ABDOMEN: Soft, nontender. EXTREMITIES: No edema. IMPRESSION: 1. Dizziness with possible orthostatic hypotension and could have an element of hypoglycemia. 2. Status post permanent pacemaker implantation with normal sensing and pacing. 3. Atrial fibrillation persistent and chronic anticoagulated. 4. End-stage renal disease. 5. Diabetes mellitus. RECOMMENDATION: From the cardiac standpoint, he is stable. Will continue to increase his level of activity. If he is stable, I would expect he should be able to be discharged home today and follow as an outpatient with Dr. Albrecht. LESLIE / JOHNATHAN: [id number] /
[2018-05-12 12:11] LABS: Glucose,Whole Blood 127 mg/dL (75-99)
--- NOTE | 2018-05-12 13:14 | P.DS ---
Providers Date of admission: 05/11/18 01:43 Expected date of discharge: 05/12/18 Attending physician: Antonieta Glez Consults: 05/11/18 01:38 Consult Physician Routine Consulting Provider: Liz Naylor Consult Reason/Comments: Near-syncope, recent pacemaker Do you want consulting provider notified?: Yes 05/11/18 08:43 Consult Physician Routine Consulting Provider: Raj Bray Consult Reason/Comments: autonomic neuropathy Do you want consulting provider notified?: Yes 05/11/18 09:10 Consult Physician Routine Consulting Provider: Lani Membreno Consult Reason/Comments: dizziness/frequent falls Do you want consulting provider notified?: Already Contacted Primary care physician: Kiel Wang [facility] Course: 73-year-old male one of Dr. Wang patient was seen at [facility] and admitted on Saturday last week because of severe fatigue tiredness lightheadedness presyncope and uremia. Patient had missed his dialysis at the time he was seen Dr. Morgan in the office on Saturday for 30 days heart monitor and through his hospitalization at [facility] found to have severe bradycardia with sick sinus syndrome patient ended up being transferred to [facility] for a single chamber pacemaker which was done by Dr. 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 05/12: Patient has been seen by Dr. Membreno from neurology for disequilibrium syndrome and recommend continuing physical therapy exercises at home. Patient has been seen by Dr. Bray and is scheduled for hemodialysis today. He has recommended follow-up with endocrinology as an outpatient due to labile blood sugars. PhosLo was discontinued and Renvela added. Patient's vital signs have been stable and patient was seen by Dr. Toro with clearance for discharge home. Blood pressure is running 139/61-162/78. Pulse ox is 90% on room air. Heart rate is running in the high 50s and 60s. Patient is to have his pacemaker interrogated and undergo hemodialysis today and then he will be discharged home in stable condition. Multiple medication changes have been made prior to discharge. Please see new medication list. Discharge diagnoses: 1. Recurrent presyncope with falls and closed head injury likely related to orthostatic hypotension. 2. Sick sinus syndrome status post single-chamber permanent pacemaker placement 05/09. 3. End-stage renal disease on hemodialysis Mondays. 4. Insulin-dependent diabetes: On insulin pump 5. Cardiomyopathy. 6. Severe COPD. 7. Hypertension and hypertensive cardiovascular disease. 8. BPH. 9. Recurrent depression. 10. Obstructive sleep apnea. Discharge plan: Return home Impression and plan of care have been directed as dictated by the signing physician. Jyoti Peraza nurse practitioner acting as scribe for signing physician. Patient Condition at Discharge: Good Plan - Discharge Summary New Discharge Prescriptions: New Apixaban [Eliquis] 2.5 mg PO BID #60 tablet Midodrine [ProAmatine] 5 mg PO AC-TID #90 tab Sevelamer [Renvela] 800 mg PO TID-W/MEALS #90 tab Continue Insulin Aspart (For Pump) [NovoLOG (For Pump)] 0.01 unit SQ-PUMP CONTINUOUS Furosemide [Lasix] 40 mg PO BID DULoxetine HCL [Cymbalta] 60 mg PO HS HYDROcodone/APAP 5-325MG [[place] 5-325] 1 tab PO DAILY PRN PRN Reason: Pain clonazePAM 1 - 2 mg PO HS PRN PRN Reason: Insomnia clonazePAM 1 mg PO DAILY Cephalexin [Keflex] 500 mg PO Q8HR #10 cap Montelukast [Singulair] 10 mg PO HS tab Changed amLODIPine [Norvasc] 5 mg PO DAILY #0 tab Discontinued hydrALAZINE HCL [Apresoline] 25 mg PO TID Apixaban [Eliquis] 5 mg PO BID Calcium Acetate [PhosLo] 667 mg PO BID-W/MEALS cap Losartan [Cozaar] 50 mg PO DAILY tab Tamsulosin [Flomax] 0.4 mg PO [id number]-[id number] cap.er.24h Discharge Medication List DULoxetine HCL [Cymbalta] 60 mg PO HS 02/20/17 [History] Furosemide [Lasix] 40 mg PO BID 02/20/17 [History] Insulin Aspart (For Pump) [NovoLOG (For Pump)] 0.01 unit SQ-PUMP CONTINUOUS [History] HYDROcodone/APAP 5-325MG [[place] 5-325] 1 tab PO DAILY PRN 05/08/18 [History] clonazePAM 1 - 2 mg PO HS PRN 05/08/18 [History] clonazePAM 1 mg PO DAILY 05/08/18 [History] Cephalexin [Keflex] 500 mg PO Q8HR #10 cap 05/10/18 [Rx] Montelukast [Singulair] 10 mg PO HS tab 05/10/18 [Rx] Apixaban [Eliquis] 2.5 mg PO BID #60 tablet 05/12/18 [Rx] Midodrine [ProAmatine] 5 mg PO AC-TID #90 tab 05/12/18 [Rx] Sevelamer [Renvela] 800 mg PO TID-W/MEALS #90 tab 05/12/18 [Rx] amLODIPine [Norvasc] 5 mg PO DAILY #0 tab 05/12/18 [Rx] Follow up Appointment(s)/Referral(s): Kiel Wang DO [Primary Care Provider] - 1-2 days
[2018-05-12 15:27] VITALS: BP 125/61; PULSE 62; TEMP 97.4
== END 2018-05-12 17:35 | disposition home or self-care (01) ==
LOC: EC 22:36 → 1SOBS 05-11 01:43
PROVIDERS: ADMIT Internal Medicine; ATTEND Internal Medicine
DX: R55 Syncope and collapse (principal); R42 Dizziness and giddiness; S09.90XA Unspecified injury of head, initial encounter; I13.11 Hypertensive heart and chronic kidney disease without heart failure, with stage 5 chronic kidney disease, or end stage renal disease; N18.6 End stage renal disease; E11.22 Type 2 diabetes mellitus with diabetic chronic kidney disease; Z99.2 Dependence on renal dialysis; R53.1 Weakness; E11.649 Type 2 diabetes mellitus with hypoglycemia without coma; N17.9 Acute kidney failure, unspecified; Z95.0 Presence of cardiac pacemaker; J44.0 Chronic obstructive pulmonary disease with (acute) lower respiratory infection; J18.9 Pneumonia, unspecified organism; N40.0 Benign prostatic hyperplasia without lower urinary tract symptoms; G47.33 Obstructive sleep apnea (adult) (pediatric); Z99.89 Dependence on other enabling machines and devices; I48.2 Chronic atrial fibrillation; E83.52 Hypercalcemia; T50.3X5A Adverse effect of electrolytic, caloric and water-balance agents, initial encounter; F33.9 Major depressive disorder, recurrent, unspecified; E66.9 Obesity, unspecified; Z68.28 Body mass index [BMI] 28.0-28.9, adult; Z79.01 Long term (current) use of anticoagulants; Z79.4 Long term (current) use of insulin; Z79.899 Other long term (current) drug therapy; Z88.2 Allergy status to sulfonamides; Z88.1 Allergy status to other antibiotic agents; Z96.41 Presence of insulin pump (external) (internal); Z91.81 History of falling; Z87.891 Personal history of nicotine dependence; Z82.5 Family history of asthma and other chronic lower respiratory diseases; Z83.79 Family history of other diseases of the digestive system; Z82.49 Family history of ischemic heart disease and other diseases of the circulatory system; Y92.008 Other place in unspecified non-institutional (private) residence as the place of occurrence of the external cause; W19.XXXA Unspecified fall, initial encounter
CPT/HCPCS: 96366; 96361; 96365; 96367; 99285; 36415 ×2; 93005; 97162; 83880; 80053 ×2; 83605 ×2; 83735 ×2; 85025 ×2; 85610; 85730; 71046; 70450; G0378 ×2; G0257; J0456; J0692; J0690 ×2; 90935

== ENCOUNTER 2018-05-21 21:34 | Emergency (ER) | payer MEDICARE ==
--- NOTE | 2018-05-21 21:49 | ED ---
Trauma HPI - General Stated Complaint: Fall Time Seen by Provider: 05/21/18 21:39 - History of Present Illness Initial Comments: Henrry is a pleasant 73-year-old male who presents the emergency department today via EMS for evaluation after fall at home. eHnrry reports that he was standing in a chair attempting with Pio atop his [place] tree when the chair tipped and he fell onto his right side. Patient reports he did not Strike his head, did not have any loss of consciousness. He reports he immediately felt pain in his right shoulder and was unable to support his body weight to get back up to his feet therefore EMS was called to assist him. Patient is on dialysis Saturday in addition he takes L Donnie daily. Patient had a pacemaker placed in his right chest last week and does have some residual tenderness and bruising to that area. - Related Data Home Medications Medication Instructions Recorded Confirmed DULoxetine HCL [Cymbalta] 60 mg PO HS 02/20/17 05/21/18 Furosemide [Lasix] 40 mg PO BID 02/20/17 05/21/18 Insulin Aspart (For Pump) [NovoLOG 0.01 unit SQ-PUMP CONTINUOUS 02/20/17 (For Pump)] HYDROcodone/APAP 5-325MG [[place] 1 tab PO DAILY PRN 05/08/18 05/21/18 5-325] clonazePAM 1 - 2 mg PO HS PRN 05/08/18 05/21/18 clonazePAM 1 mg PO DAILY 05/08/18 05/21/18 Apixaban [Eliquis] 2.5 mg PO DAILY 05/21/18 05/21/18 Previous Rx's Medication Instructions Recorded Montelukast [Singulair] 10 mg PO HS tab 05/10/18 Midodrine [ProAmatine] 5 mg PO AC-TID #90 tab 05/12/18 Sevelamer [Renvela] 800 mg PO TID-W/MEALS #90 tab 05/12/18 amLODIPine [Norvasc] 5 mg PO DAILY #0 tab 05/12/18 HYDROcodone/APAP 5-325MG [[place] 1 tab PO Q6HR PRN 3 Days #8 tab 05/22/18 5-325] Allergies Allergy/AdvReac Type Severity Reaction Status Date / Time Sulfa (Sulfonamide Allergy Rash/Hives Verified 05/21/18 22:46 Antibiotics) levofloxacin [From Levaquin] AdvReac Unknown Verified 05/21/18 22:46 Review of Systems ROS Statement: Those systems with pertinent positive or pertinent negative responses have been documented in the HPI. ROS Other: All systems not noted in ROS Statement are negative. Past Medical History Past Medical History: COPD, Diabetes Mellitus, Dialysis, Hypertension, Prostate Disorder, Renal Disease, Sleep Apnea/CPAP/BIPAP Additional Past Medical History / Comment(s): BPH History of Any Multi-Drug Resistant Organisms: None Reported Past Surgical History: Heart Catheterization, Hernia Repair, Orthopedic Surgery , Pacemaker Additional Past Surgical History / Comment(s): L fistula 05/29 AV fistula creation 05/29/2016 [facility] Past Anesthesia/Blood Transfusion Reactions: No Reported Reaction Type of Cardiac Device: Permanent Pacemaker Device Placement Date:: 05/10/2018 Past Psychological History: Depression Smoking Status: Former smoker Past Alcohol Use History: Occasional Past Drug Use History: None Reported - Past Family History Father History Unknown: Yes Mother History Unknown: Yes Brother(s) History Unknown: Yes Family Medical History: COPD, Liver Disease Daughter(s) History Unknown: Yes General Exam - General Exam Comments Initial Comments: GENERAL: Chronically ill-appearing Patient is nontoxic and well-hydrated and is in no distress. HENT: Normocephalic, Atraumatic. Cervical collar in place, no midline cervical spine tenderness, no focal neurologic deficits EYES: The sclera were anicteric and conjunctiva were pink and moist. Extraocular movements were intact and pupils were equal round and reactive to light. Eyelids were unremarkable. PULMONARY: Mild expiratory wheeze CARDIOVASCULAR: There is a regular rate and rhythm without any murmurs gallops or rubs. ABDOMEN: Soft and nontender with normal bowel sounds. Insulin pump in place and left lower abdomen, continuous glucose sensor in place right lower abdomen SKIN: Well healing bruising and right chest secondary to recent pacemaker placement, well-healed incision in right chest over pacemaker NEUROLOGIC: Patient is alert and oriented x3. Cranial nerves II through XII are grossly intact. Motor and sensory are also intact. Normal speech, volume and content. Symmetrical smile. MUSCULOSKELETAL: Decreased range of motion right shoulder secondary to pain LYMPHATICS: No significant lymphadenopathy is noted PSYCHIATRIC: Normal psychiatric evaluation. Limitations: no limitations Course Vital Signs 05/21/18 05/21/18 21:46 22:10 Temperature 97.5 F L Pulse Rate 64 60 Respiratory 20 20 Rate Blood Pressure 199/79 194/66 O2 Sat by Pulse 94 L 94 L Oximetry Medical Decision Making - Medical Decision Making Patient was seen and evaluated per ATLS guidelines Airway intact, breathing adequately, good circulation in all extremities with no evidence of hemorrhage Secondary survey reveals tenderness with range of motion of the right shoulder Labs and imaging ordered Imaging reveals a humeral neck fracture No other injuries identified Patient care was discussed with orthopedics Dr. Melendez who recommends sling and discharge home - will see patient in office tomorrow Troponin is very minimally elevated, this is likely due to chronic renal disease. Will repeat troponin at 3 hours after arrival. Patient is chest pain- free. EKG with no acute changes from previous Repeat troponin unchanged There unable to put a patient's arm in the sling while in the emergency department due to the IV being in place in the arm, could not obtain IV access in the left arm due to dialysis access. Patient was given repeat doses of pain medications, given a started dose of Tylenol 3 to take home to keep him comfortable overnight. Patient will follow up with Dr. Melendez in the morning. - Lab Data Result diagrams: 05/21/18 21:44 05/21/18 21:44 Lab Results 05/21/18 05/21/18 05/21/18 Range/Units 21:44 21:44 21:44 WBC 8.3 (3.8-10.6) k/uL RBC 3.42 L (4.30-5.90) m/uL Hgb 10.9 L (13.0-17.5) gm/dL Hct 34.2 L (39.0-53.0) % MCV 100.0 (80.0-100.0) fL MCH 32.0 (25.0-35.0) pg MCHC 32.0 (31.0-37.0) g/dL RDW 15.9 H (11.5-15.5) % Plt Count 220 (150-450) k/uL Neutrophils % 77 % Lymphocytes % 10 % Monocytes % 8 % Eosinophils % 3 % Basophils % 0 % Neutrophils # 6.4 (1.3-7.7) k/uL Lymphocytes # 0.8 L (1.0-4.8) k/uL Monocytes # 0.7 (0-1.0) k/uL Eosinophils # 0.2 (0-0.7) k/uL Basophils # 0.0 (0-0.2) k/uL Macrocytosis Slight PT (9.0-12.0) sec INR (<1.2) APTT (22.0-30.0) sec Sodium 135 L (137-145) mmol/L Potassium 4.7 (3.5-5.1) mmol/L Chloride 95 L (98-107) mmol/L Carbon Dioxide 30 (22-30) mmol/L Anion Gap 10 mmol/L BUN 17 (9-20) mg/dL Creatinine 3.48 H (0.66-1.25) mg/dL Est GFR (CKD-EPI)AfAm 19 (>60 ml/min/1.73 sqM) Est GFR (CKD-EPI)NonAf 17 (>60 ml/min/1.73 sqM) Glucose 126 H (74-99) mg/dL Plasma Lactic Acid Edmundo (0.7-2.0) mmol/L Calcium 9.1 (8.4-10.2) mg/dL Total Bilirubin 0.7 (0.2-1.3) mg/dL AST 27 (17-59) U/L ALT 17 L (21-72) U/L Alkaline Phosphatase 132 H (38-126) U/L Total Creatine Kinase 68 (55-170) U/L CK-MB (CK-2) 1.8 (0.0-2.4) ng/mL CK-MB (CK-2) Rel Index 2.6 Troponin I 0.044 H* (0.000-0.034) ng/mL Total Protein 6.4 (6.3-8.2) g/dL Albumin 3.8 (3.5-5.0) g/dL Amylase 46 (30-110) U/L Lipase 61 (23-300) U/L Serum Alcohol <10 mg/dL Blood Type Blood Type Recheck Antibody Screen Spec Expiration Date 05/21/18 05/21/18 05/21/18 Range/Units 21:44 21:44 21:44 WBC (3.8-10.6) k/uL RBC (4.30-5.90) m/uL Hgb (13.0-17.5) gm/dL Hct (39.0-53.0) % MCV (80.0-100.0) fL MCH (25.0-35.0) pg MCHC (31.0-37.0) g/dL RDW (11.5-15.5) % Plt Count (150-450) k/uL Neutrophils % % Lymphocytes % % Monocytes % % Eosinophils % % Basophils % % Neutrophils # (1.3-7.7) k/uL Lymphocytes # (1.0-4.8) k/uL Monocytes # (0-1.0) k/uL Eosinophils # (0-0.7) k/uL Basophils # (0-0.2) k/uL Macrocytosis PT 10.1 (9.0-12.0) sec INR 0.9 (<1.2) APTT 19.7 L (22.0-30.0) sec Sodium (137-145) mmol/L Potassium (3.5-5.1) mmol/L Chloride (98-107) mmol/L Carbon Dioxide (22-30) mmol/L Anion Gap mmol/L BUN (9-20) mg/dL Creatinine (0.66-1.25) mg/dL Est GFR (CKD-EPI)AfAm (>60 ml/min/1.73 sqM) Est GFR (CKD-EPI)NonAf (>60 ml/min/1.73 sqM) Glucose (74-99) mg/dL Plasma Lactic Acid Edmundo 1.5 (0.7-2.0) mmol/L Calcium (8.4-10.2) mg/dL Total Bilirubin (0.2-1.3) mg/dL AST (17-59) U/L ALT (21-72) U/L Alkaline Phosphatase (38-126) U/L Total Creatine Kinase (55-170) U/L CK-MB (CK-2) (0.0-2.4) ng/mL CK-MB (CK-2) Rel Index Troponin I (0.000-0.034) ng/mL Total Protein (6.3-8.2) g/dL Albumin (3.5-5.0) g/dL Amylase (30-110) U/L Lipase (23-300) U/L Serum Alcohol mg/dL Blood Type B Positive Blood Type Recheck No Antibody Screen NEGATIVE Spec Expiration Date 05/24/2018 - 234305/22/18 Range/Units 00:38 WBC (3.8-10.6) k/uL RBC (4.30-5.90) m/uL Hgb (13.0-17.5) gm/dL Hct (39.0-53.0) % MCV (80.0-100.0) fL MCH (25.0-35.0) pg MCHC (31.0-37.0) g/dL RDW (11.5-15.5) % Plt Count (150-450) k/uL Neutrophils % % Lymphocytes % % Monocytes % % Eosinophils % % Basophils % % Neutrophils # (1.3-7.7) k/uL Lymphocytes # (1.0-4.8) k/uL Monocytes # (0-1.0) k/uL Eosinophils # (0-0.7) k/uL Basophils # (0-0.2) k/uL Macrocytosis PT (9.0-12.0) sec INR (<1.2) APTT (22.0-30.0) sec Sodium (137-145) mmol/L Potassium (3.5-5.1) mmol/L Chloride (98-107) mmol/L Carbon Dioxide (22-30) mmol/L Anion Gap mmol/L BUN (9-20) mg/dL Creatinine (0.66-1.25) mg/dL Est GFR (CKD-EPI)AfAm (>60 ml/min/1.73 sqM) Est GFR (CKD-EPI)NonAf (>60 ml/min/1.73 sqM) Glucose (74-99) mg/dL Plasma Lactic Acid Edmundo (0.7-2.0) mmol/L Calcium (8.4-10.2) mg/dL Total Bilirubin (0.2-1.3) mg/dL AST (17-59) U/L ALT (21-72) U/L Alkaline Phosphatase (38-126) U/L Total Creatine Kinase (55-170) U/L CK-MB (CK-2) (0.0-2.4) ng/mL CK-MB (CK-2) Rel Index Troponin I 0.044 H* (0.000-0.034) ng/mL Total Protein (6.3-8.2) g/dL Albumin (3.5-5.0) g/dL Amylase (30-110) U/L Lipase (23-300) U/L Serum Alcohol mg/dL Blood Type Blood Type Recheck Antibody Screen Spec Expiration Date - EKG Data -: EKG Interpreted by Me EKG Comments: EKG obtained at 2302, rate is 60, rhythm is a ventricularly paced rhythm with no obvious ST elevations or depressions. Disposition Clinical Impression: Fall, Humeral surgical neck fracture Disposition: HOME SELF-CARE Condition: Good Prescriptions: HYDROcodone/APAP 5-325MG [[place] 5-325] 1 tab PO Q6HR PRN 3 Days #8 tab PRN Reason: Pain Is patient prescribed a controlled substance at d/c from ED?: Yes When asked, does pt state using other controlled substances?: No If prescribed controlled substance>3 days was MAPS reviewed?: Prescribed <3 Days If opioid is for acute pain is fill amount 7 days or less?: Yes If Rx opioid, was Start Talking consent form obtained?: No Referrals: Kiel Wang DO [Primary Care Provider] - 1-2 days Kenrick Melendez MD [STAFF PHYSICIAN] - 1-2 days Time of Disposition: 02:15
[2018-05-21 22:00] VITALS: RESP 20; TEMP 97.5
[2018-05-21 22:02] LABS: Basophils % (A) 0 %; Eosinophils # (A) 0.2 k/uL (0-0.7); Eosinophils % (A) 3 %; HCT 34.2 % (39.0-53.0); HGB 10.9 gm/dL (13.0-17.5); Lymphocytes # (A) 0.8 k/uL (1.0-4.8); Lymphocytes % (A) 10 %; Macrocytosis Slight; Mean Platelet Volume 8.6; Monocytes # (A) 0.7 k/uL (0-1.0); Monocytes % (A) 8 %; Neutrophils # (A) 6.4 k/uL (1.3-7.7); Neutrophils % (A) 77 %; Platelet Count 220 k/uL (150-450); RBC 3.42 m/uL (4.30-5.90); RDW 15.9 % (11.5-15.5); WBC 8.3 k/uL (3.8-10.6)
[2018-05-21 22:13] LABS: ALT 17 U/L (21-72); AST 27 U/L (17-59); Albumin 3.8 g/dL (3.5-5.0); Alcohol <10 mg/dL; Alkaline Phosphatase 132 U/L (38-126); Amylase 46 U/L (30-110); Anion Gap 10 mmol/L; Blood Urea Nitrogen 17 mg/dL (9-20); Calcium 9.1 mg/dL (8.4-10.2); Carbon Dioxide 30 mmol/L (22-30); Chloride 95 mmol/L (98-107); Glucose 126 mg/dL (74-99); Lipase 61 U/L (23-300); Potassium 4.7 mmol/L (3.5-5.1); Sodium 135 mmol/L (137-145); Total Bilirubin 0.7 mg/dL (0.2-1.3); Total Protein 6.4 g/dL (6.3-8.2)
[2018-05-21] MEDS ORDERED: MORPHINE SULFATE 4 MG/ML SYRINGE IVP STA (22:15)
[2018-05-21 22:17] LABS: INR 0.9 (<1.2); Prothrombin Time 10.1 sec (9.0-12.0)
--- NOTE | 2018-05-21 22:20 | XR ---
EXAMINATION TYPE: XR chest 1V portable DATE OF EXAM: 05/21/2018 COMPARISON: 05/10/2018 HISTORY: Fall. Trauma. Pain. TECHNIQUE: Single frontal view of the chest is obtained. FINDINGS: Heart is enlarged. There is mild pulmonary congestion. There is no pneumothorax. Costophre jania angles are clear. There is right axillary pacemaker with the lead tip over the right ventricle. IMPRESSION: Cardiomegaly with mild pulmonary vascular congestion. There is probably no change compar ed to old exam. No pneumothorax.
[2018-05-21 22:21] LABS: Partial Thromboplastin Time 19.7 sec (22.0-30.0)
--- NOTE | 2018-05-21 22:21 | XR ---
EXAMINATION TYPE: XR pelvis AP view DATE OF EXAM: 05/21/2018 COMPARISON: NONE HISTORY: Fall. Pain. TECHNIQUE: Single view FINDINGS: Pelvic ring is intact. There is vascular calcification. Sacroiliac joints are intact. There is device implanted over the right mid abdomen. Proximal femurs are intact. IMPRESSION: No acute abnormality of the pelvis. No fracture seen.
--- NOTE | 2018-05-21 22:23 | XR ---
EXAMINATION TYPE: XR shoulder limited RT DATE OF EXAM: 05/21/2018 COMPARISON: NONE HISTORY: Fall. Pain. TECHNIQUE: 2 views FINDINGS: There is transverse fracture of the right humeral neck. There is 100% offset of the fragmen ts. There is some overriding of the fragments. There is no dislocation. Scapula is intact. IMPRESSION: Displaced fracture of the right humeral neck with overriding of the fragments. No disloca tion.
[2018-05-21 22:26] VITALS: BP 194/66; PULSE 60
[2018-05-21 22:28] LABS: Creatine Kinase MB 1.8 ng/mL (0.0-2.4)
[2018-05-21 22:34] LABS: Troponin I 0.044 ng/mL (0.000-0.034)
--- NOTE | 2018-05-21 22:39 | CT ---
EXAMINATION TYPE: CT brain rubén wo con DATE OF EXAM: 05/21/2018 COMPARISON: CT brain 05/10/2018 HISTORY: fall CT DLP: [id number] mGycm Automated exposure control for dose reduction was used. TECHNIQUE: CT scan of the head and cervical spine are performed without contrast. FINDINGS: There is cerebral cortical atrophy. There is no mass effect nor midline shift. There is n o sign of intracranial hemorrhage. The calvarium is intact. Cervical vertebra have normal alignment. There is mild narrowing at C3-4 and C5-6 disc spaces with sp ur formation. Posterior elements are intact. Facet joints are intact the skull base is intact. IMPRESSION: Cerebral atrophy. No acute intracranial abnormality. Mild left-sided maxillary sinusitis. No change c ompared to old exam. Spondylotic changes in the cervical spine. No fracture seen.
[2018-05-21] MEDS ORDERED: HYDROcodone/APAP 7.5-325MG 1 EACH TAB PO ONE (23:15)
[2018-05-22] MEDS ORDERED: MORPHINE SULFATE 4 MG/ML SYRINGE IVP STA ×2 (01:15→01:18)
[2018-05-22] MEDS ORDERED: MORPHINE SULFATE/PF 10MG/10ML VL IVP STA (01:15)
[2018-05-22] MEDS ORDERED: ACET/COD 300 MG/30 MG STARTER PACK 6 TAB BTL PO STA (02:14)
== END 2018-05-22 02:36 | disposition home or self-care (01) ==
LOC: EC 21:34
DX: S42.211A Unspecified displaced fracture of surgical neck of right humerus, initial encounter for closed fracture (principal); R79.89 Other specified abnormal findings of blood chemistry; R06.2 Wheezing; I12.9 Hypertensive chronic kidney disease with stage 1 through stage 4 chronic kidney disease, or unspecified chronic kidney disease; N18.9 Chronic kidney disease, unspecified; E11.22 Type 2 diabetes mellitus with diabetic chronic kidney disease; G47.30 Sleep apnea, unspecified; F32.9 Major depressive disorder, single episode, unspecified; Z87.891 Personal history of nicotine dependence; Z88.1 Allergy status to other antibiotic agents; Z88.2 Allergy status to sulfonamides; Z79.01 Long term (current) use of anticoagulants; Z79.4 Long term (current) use of insulin; Z79.899 Other long term (current) drug therapy; Z99.2 Dependence on renal dialysis; Z95.0 Presence of cardiac pacemaker; Z96.41 Presence of insulin pump (external) (internal); Z99.89 Dependence on other enabling machines and devices; Z82.5 Family history of asthma and other chronic lower respiratory diseases; Z53.8 Procedure and treatment not carried out for other reasons; W07.XXXA Fall from chair, initial encounter; Y93.89 Activity, other specified; Y92.009 Unspecified place in unspecified non-institutional (private) residence as the place of occurrence of the external cause
CPT/HCPCS: 36415 ×2; 93005; 86900; 86901; 80053; 82150; 82550; 82553; 83605; 83690; 84484 ×2; 85025; 85610; 85730; 86850; 72170; 73020; 71045; 72125; 70450; 99285; 96374; 96376; G0480; J2270 ×2; 80320

== ENCOUNTER 2018-05-28 06:17 | Emergency (ER) | payer MEDICARE ==
[2018-05-28 06:22] LABS: Glucose,Whole Blood 120 mg/dL (75-99)
--- NOTE | 2018-05-28 06:22 | ED ---
General Adult HPI - General Stated complaint: altered mental status Time Seen by Provider: 05/28/18 06:21 - History of Present Illness Initial comments: Henrry a 73-year-old gentleman who was seen and evaluated last week after he had a fall off of a chair resulting in a humeral neck fracture. Patient has subsequently followed up with orthopedics in his arm is been placed in cast, he' s been prescribed oral narcotics. This morning the patient's called 911 because the patient has been agitated not acting like himself. She reports that they brought him a new electric recliner chair to help him be more comfortable despite this he's been restless walking around the house moving from chair to bed unable to find a comfortable position. She reports that he's been yelling out in pain in his been agitated. Upon arrival the patient states that he just is been having trouble managing his pain. He denies any confusion. The patient was able to recognize me from his previous visit and in fact as able to recall my name from previous visit. Does state that he has been unable to find a comfortable position and therefore has moved and walked around throughout the day. He does feel little bit more comfortable when he is standing than when he is reclining as he was told by his orthopedist to allow the arm to hang. Patient is to follow-up with orthopedics again tomorrow at 10 AM for further discussion of management of this fracture including options of surgical repair versus persistent casting. Patient denies any other complaints she denies fevers, chills, nausea, vomiting, chest pain palpitations shortness of breath or cough. He's been compliant with his dialysis. He is being evaluated by cardiology for medical clearance for possible surgical repair of the arm. states he would like to stay in the hospital to receive IV morphine that he received while he was in the emergency department when he initially broke his arm. - Related Data Home Medications Medication Instructions Recorded Confirmed DULoxetine HCL [Cymbalta] 60 mg PO DAILY 02/20/17 05/28/18 Furosemide [Lasix] 40 mg PO BID 02/20/17 05/28/18 Insulin Aspart (For Pump) [NovoLOG 0.01 unit SQ-PUMP CONTINUOUS 02/20/17 (For Pump)] clonazePAM 1 - 2 mg PO HS PRN 05/08/18 05/28/18 clonazePAM 1 mg PO DAILY 05/08/18 05/28/18 Apixaban [Eliquis] 2.5 mg PO DAILY 05/21/18 05/28/18 Calcium Acetate [Phoslo] 667 mg PO BID@0800,1200 05/28/18 05/28/18 amLODIPine [Norvasc] 5 mg PO DAILY 05/28/18 05/28/18 Previous Rx's Medication Instructions Recorded Montelukast [Singulair] 10 mg PO HS tab 05/10/18 Midodrine [ProAmatine] 5 mg PO AC-TID #90 tab 05/12/18 Sevelamer [Renvela] 800 mg PO TID-W/MEALS #90 tab 05/12/18 HYDROcodone/APAP 5-325MG [[place] 1 tab PO Q6HR PRN 3 Days #8 tab 05/22/18 5-325] Allergies Allergy/AdvReac Type Severity Reaction Status Date / Time Sulfa (Sulfonamide Allergy Rash/Hives Verified 05/28/18 06:49 Antibiotics) levofloxacin [From Levaquin] AdvReac Unknown Verified 05/28/18 06:49 Review of Systems ROS Statement: Those systems with pertinent positive or pertinent negative responses have been documented in the HPI. ROS Other: All systems not noted in ROS Statement are negative. Past Medical History Past Medical History: COPD, Diabetes Mellitus, Dialysis, Hypertension, Prostate Disorder, Renal Disease, Sleep Apnea/CPAP/BIPAP Additional Past Medical History / Comment(s): BPH History of Any Multi-Drug Resistant Organisms: None Reported Past Surgical History: Heart Catheterization, Hernia Repair, Orthopedic Surgery , Pacemaker Additional Past Surgical History / Comment(s): L fistula 05/29 AV fistula creation 05/29/2016 [facility] Past Anesthesia/Blood Transfusion Reactions: No Reported Reaction Type of Cardiac Device: Permanent Pacemaker Device Placement Date:: 05/10/2018 Past Psychological History: Depression Smoking Status: Former smoker Past Alcohol Use History: Occasional Past Drug Use History: None Reported - Past Family History Father History Unknown: Yes Mother History Unknown: Yes Brother(s) History Unknown: Yes Family Medical History: COPD, Liver Disease Daughter(s) History Unknown: Yes General Exam - General Exam Comments Initial Comments: Physical Exam GENERAL: Patient is well-developed and well-nourished. Patient is casted and appears uncomfortable HENT: Normocephalic, Atraumatic. EYES: PERRL, EOMI PULMONARY: Unlabored respirations. No audible rales rhonchi or wheezing was noted. CARDIOVASCULAR: There is a regular rate and rhythm without any murmurs gallops or rubs. ABDOMEN: Obese, Soft and nontender with normal bowel sounds. SKIN: Healing bruising on the right shoulder and right chest wall, shades of purple and yellow Well-healing surgical incision in the right chest consistent with recent pacemaker placement : Deferred NEUROLOGIC: Patient is alert and oriented x3. Cranial nerve II through XII MUSCULOSKELETAL: Normal extremities with adequate strength and full range of motion. No lower extremity swelling or edema. No calf tenderness. PSYCHIATRIC: Normal psychiatric evaluation. Limitations: no limitations Course Vital Signs 05/28/18 05/28/18 06:18 06:23 Temperature 98.8 F 98.5 F Pulse Rate 73 75 Respiratory 20 20 Rate Blood Pressure 145/108 157/108 O2 Sat by Pulse 94 L 95 Oximetry Medical Decision Making - Medical Decision Making Patient was seen and evaluated history was obtained from the patient and the concerned about the patient's agitation patient is aware that he is agitated that she resisted the medications he is taking as well as the chronic pain is experiencing due to the arm fracture Patient is awake alert oriented appropriate afebrile stable vital signs at this time I don't feel there is any occasion for further workup. We'll treat the patient with IM morphine and see is having pain. Advised patient to discuss pain management at his follow-up visit with orthopedics tomorrow. Patient is agreeable with this. All questions pertaining care were answered return parameters were discussed and patient was discharged home in stable condition. 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 Disposition Clinical Impression: Humeral surgical neck fracture Disposition: HOME SELF-CARE Condition: Stable Instructions: Arm Fracture in Adults (ED) Is patient prescribed a controlled substance at d/c from ED?: No Referrals: Kiel Wang DO [Primary Care Provider] - 1-2 days
[2018-05-28 06:23] VITALS: RESP 20
[2018-05-28] MEDS ORDERED: MORPHINE SULFATE 4 MG/ML SYRINGE IM STA (07:06)
[2018-05-28 07:25] VITALS: BP 157/108; PULSE 75; TEMP 98.5
== END 2018-05-28 07:26 | disposition home or self-care (01) ==
LOC: EC 06:17
DX: S42.211D Unspecified displaced fracture of surgical neck of right humerus, subsequent encounter for fracture with routine healing (principal); R41.82 Altered mental status, unspecified; R45.1 Restlessness and agitation; I12.0 Hypertensive chronic kidney disease with stage 5 chronic kidney disease or end stage renal disease; N18.6 End stage renal disease; E11.22 Type 2 diabetes mellitus with diabetic chronic kidney disease; Z99.2 Dependence on renal dialysis; G47.30 Sleep apnea, unspecified; Z79.4 Long term (current) use of insulin; Z79.01 Long term (current) use of anticoagulants; Z79.899 Other long term (current) drug therapy; Z88.2 Allergy status to sulfonamides; Z88.1 Allergy status to other antibiotic agents; Z95.818 Presence of other cardiac implants and grafts; Z87.891 Personal history of nicotine dependence; F32.9 Major depressive disorder, single episode, unspecified; W07.XXXD Fall from chair, subsequent encounter
CPT/HCPCS: 36415; 93005; 99285; 96372; J2270

== ENCOUNTER 2018-06-04 03:41 | Emergency (ER) | payer MEDICARE ==
[2018-06-04 03:48] VITALS: RESP 18
[2018-06-04] MEDS ORDERED: HYDROcodone/APAP 7.5-325MG 1 EACH TAB PO ONE (04:31)
--- NOTE | 2018-06-04 04:35 | ED ---
Fall HPI - General Chief Complaint: Fall Stated Complaint: Arm Pain Time Seen by Provider: 06/04/18 03:51 Source: patient Mode of arrival: EMS - History of Present Illness MD Complaint: fall -: hour(s) Fall From: standing Fall Witnessed: yes, by family Place Fall Occurred: home Loss of Consciousness: none Prolonged Down Time?: no Location: head Location - Extremities: Right: Shoulder Severity: moderate Quality: dull Context: tripped/slipped Associated Symptoms: headache - Related Data Home Medications Medication Instructions Recorded Confirmed DULoxetine HCL [Cymbalta] 60 mg PO DAILY 02/20/17 06/04/18 Furosemide [Lasix] 40 mg PO BID 02/20/17 06/04/18 Insulin Aspart (For Pump) [NovoLOG 0.01 unit SQ-PUMP CONTINUOUS 02/20/17 (For Pump)] clonazePAM 1 - 2 mg PO HS PRN 05/08/18 06/04/18 clonazePAM 1 mg PO DAILY 05/08/18 06/04/18 Calcium Acetate [Phoslo] 667 mg PO BID@0800,1200 05/28/18 06/04/18 HYDROcodone/APAP 5-325MG [[place] 1 tab PO DAILY PRN 06/04/18 06/04/18 5-325] Midodrine [ProAmatine] 5 mg PO AC-TID PRN 06/04/18 06/04/18 Previous Rx's Medication Instructions Recorded Montelukast [Singulair] 10 mg PO HS tab 05/10/18 Sevelamer [Renvela] 800 mg PO TID-W/MEALS #90 tab 05/12/18 Allergies Allergy/AdvReac Type Severity Reaction Status Date / Time Sulfa (Sulfonamide Allergy Rash/Hives Verified 06/04/18 08:31 Antibiotics) levofloxacin [From Levaquin] AdvReac Unknown Verified 06/04/18 08:31 Review of Systems ROS Statement: Those systems with pertinent positive or pertinent negative responses have been documented in the HPI. ROS Other: All systems not noted in ROS Statement are negative. Constitutional: Denies: fever Eyes: Denies: vision change Respiratory: Denies: cough, dyspnea Cardiovascular: Denies: chest pain, palpitations, edema Gastrointestinal: Denies: abdominal pain, nausea, vomiting Musculoskeletal: Reports: arthralgia (Right shoulder). Denies: back pain Skin: Denies: rash, lesions Neurological: Reports: headache. Denies: weakness, numbness Past Medical History Past Medical History: COPD, Diabetes Mellitus, Dialysis, Hypertension, Prostate Disorder, Renal Disease, Sleep Apnea/CPAP/BIPAP Additional Past Medical History / Comment(s): BPH History of Any Multi-Drug Resistant Organisms: None Reported Past Surgical History: Heart Catheterization, Hernia Repair, Orthopedic Surgery , Pacemaker Additional Past Surgical History / Comment(s): L fistula 05/29 AV fistula creation 05/29/2016 [facility] Past Anesthesia/Blood Transfusion Reactions: No Reported Reaction Type of Cardiac Device: Permanent Pacemaker Device Placement Date:: 05/10/2018 Past Psychological History: Depression Smoking Status: Former smoker Past Alcohol Use History: Occasional Past Drug Use History: None Reported - Past Family History Father History Unknown: Yes Mother History Unknown: Yes Brother(s) History Unknown: Yes Family Medical History: COPD, Liver Disease Daughter(s) History Unknown: Yes General Exam Limitations: no limitations General appearance: alert, in no apparent distress Head exam: Present: atraumatic, normocephalic Eye exam: Present: normal appearance. Absent: scleral icterus, conjunctival injection Neck exam: Present: normal inspection, tenderness, other (Cervical collar) Respiratory exam: Present: normal lung sounds bilaterally. Absent: respiratory distress, wheezes, rales, rhonchi, stridor, chest wall tenderness Cardiovascular Exam: Present: regular rate, normal rhythm, normal heart sounds. Absent: systolic murmur, diastolic murmur, rubs, gallop GI/Abdominal exam: Present: soft. Absent: distended, tenderness, guarding, rebound, mass Extremities exam: Present: normal inspection, tenderness (Right shoulder), normal capillary refill, other (Patient's right upper extremity has a cast. Distal sensation, motor and capillary refill normal.). Absent: pedal edema, calf tenderness Back exam: Present: normal inspection. Absent: CVA tenderness (R), CVA tenderness (L) Neurological exam: Present: alert, oriented X3. Absent: motor sensory deficit Skin exam: Present: warm, dry, intact, normal color. Absent: rash Course Vital Signs 06/04/18 06/04/18 03:45 07:14 Temperature 96.9 F L Pulse Rate 70 65 Respiratory 18 18 Rate Blood Pressure 189/117 O2 Sat by Pulse 93 L 93 L Oximetry Medical Decision Making - Medical Decision Making Patient 73-year-old man with proximal humerus fracture who had another fall tonight with minor head injury. CT head and neck is negative. X-rays of the shoulder does not reveal acute fracture, showing only the previous injury. He does have scheduled appointment with orthopedics today and will keep that. Disposition Clinical Impression: Fall, Head injury Disposition: HOME SELF-CARE Condition: Good Instructions: Fall Prevention for Older Adults (ED), Head Injury (ED) Is patient prescribed a controlled substance at d/c from ED?: No Referrals: Kiel Wang DO [Primary Care Provider] - 1-2 days
--- NOTE | 2018-06-04 06:03 | CT ---
EXAM: CT Head Without Intravenous Contrast CLINICAL HISTORY: ITS.REASON CT Reason: Pain fall onto buttocks, forehead pain, prior on pacs, TECHNIQUE: Axial computed tomography images of the head/brain without intravenous contrast. CTDI is 45.2 mGy and DLP is 1012 mGy-cm. This CT exam was performed using one or more of the following dose reduction techniques: automated exposure control, adjustment of the mA and/or kV according to patient size, and/or use of iterative reconstruction technique. COMPARISON: 05/21/18 FINDINGS: Brain: Mildly enlarged ventricles and sulci, consistent with mild volume loss. Mild periventricular white matter low-density consistent with mild small vessel disease. No hemorrhage. Ventricles: See above. Bones/joints: Unremarkable. No acute fracture. Soft tissues: Unremarkable. Sinuses: Small fluid level in the left maxillary sinus, similar to prior. Mild left maxillary sinus mucosal thickening. Mastoid air cells: Unremarkable as visualized. No mastoid effusion. Orbits: Bilateral cataract surgery. IMPRESSION: 1. No evidence of acute intracranial abnormality or skull fracture. 2. Small amount of fluid and mucosal thickening of the left maxillary sinus. May represent sinusitis. Correlate for occult fracture. EXAM: CT Cervical Spine Without Intravenous Contrast CLINICAL HISTORY: ITS.REASON CT Reason: Pain fall onto buttocks, forehead pain, prior on pacs, TECHNIQUE: Axial computed tomography images of the cervical spine without intravenous contrast. CTDI is 18.3 mGy and DLP is 583 mGy-cm. This CT exam was performed using one or more of the following dose reduction techniques: automated exposure control, adjustment of the mA and/or kV according to patient size, and/or use of iterative reconstruction technique. COMPARISON: 05/21/18 FINDINGS: Vertebrae: No acute fracture. Discs/spinal canal/neural foramina: Stable mild degenerative changes and alignment of the cervical spine. At C3-4, C4-C5 and C5-C6, there are disc osteophyte complexes and facet degenerative changes which result in moderate central canal stenosis and mild bilateral foraminal stenoses. No severe stenoses. Other bones/joints: On the microfilm equipment inspector image, displaced proximal humeral shaft fracture. Similar to the prior study. Soft tissues: Unremarkable. Lymph nodes: Multiple small and mildly enlarged mediastinal nodes, partially visualized. Pleural space: Moderate right pleural effusion, partially visualized. Increased since the prior. Tubes, lines and devices: Right chest wall pacemaker partially visualized. IMPRESSION: 1. No evidence of acute fracture or malalignment. 2. On the microfilm equipment inspector image, displaced proximal humeral shaft fracture. Similar to the prior study. 3. Moderate right pleural effusion, partially visualized. Increased since the prior. 4. Multiple small and mildly enlarged mediastinal nodes, partially visualized.
--- NOTE | 2018-06-04 06:07 | XR ---
EXAM: XR Right Shoulder Complete, 2 or More Views CLINICAL HISTORY: ITS.REASON XR right shoulder pain, hx of recent fx Evaluate rt shoulder fx, scheduled for surgery on Rt humeral/shoulder fx today, fall onto buttocks, prior on pacs TECHNIQUE: Two or more views of the right shoulder. COMPARISON: 05/21/18. FINDINGS: Bones/joints: Stable appearance of the right humeral neck fracture with displacement. Degenerative changes of the acromioclavicular joint. No dislocation. Soft tissues: Unremarkable. IMPRESSION: Stable appearance of the right humeral neck fracture with displacement.
[2018-06-04 07:15] VITALS: PULSE 65; TEMP 96.9
[2018-06-04 07:16] VITALS: BP 189/117
== END 2018-06-04 07:23 | disposition home or self-care (01) ==
LOC: EC 03:41
DX: S09.90XA Unspecified injury of head, initial encounter (principal); S42.291A Other displaced fracture of upper end of right humerus, initial encounter for closed fracture; R29.6 Repeated falls; E11.9 Type 2 diabetes mellitus without complications; I10 Essential (primary) hypertension; G47.30 Sleep apnea, unspecified; N28.9 Disorder of kidney and ureter, unspecified; F32.9 Major depressive disorder, single episode, unspecified; Z87.891 Personal history of nicotine dependence; Z88.1 Allergy status to other antibiotic agents; Z88.2 Allergy status to sulfonamides; Z79.4 Long term (current) use of insulin; Z79.899 Other long term (current) drug therapy; Z99.89 Dependence on other enabling machines and devices; Z99.2 Dependence on renal dialysis; W01.0XXA Fall on same level from slipping, tripping and stumbling without subsequent striking against object, initial encounter; Y92.009 Unspecified place in unspecified non-institutional (private) residence as the place of occurrence of the external cause
CPT/HCPCS: 70450; 72125; 99284

== ENCOUNTER 2018-06-06 10:55 | Day surgery (SDC) | payer MEDICARE ==
[2018-06-04 09:36] VITALS: BMI 31.2
[~2018-06-06 10:55] MED LIST: ACETAMINOPHEN TAB 500 MG TAB PO ONE; DEXAMETHASONE SOD PHOSPHATE 10 MG/ML 1 ML VIAL IV ONE; HYDROmorphone 0.5 MG/0.5 ML SYRINGE IVP PRN; MIDAZOLAM (PF) 2 MG/2 ML VIAL IV PRN; ONDANSETRON 4 MG/2 ML VIAL IVP ONE; ceFAZolin IN SWFI 2 GM/20 ML SYRINGE IVP ONE
[2018-06-06 11:32] LABS: Glucose,Whole Blood 98 mg/dL (75-99)
[2018-06-06] MEDS ORDERED: SODIUM CHLORIDE 0.9% 1,000 ML IV ONE (11:32)
[2018-06-06] MEDS ORDERED: LACTATED RINGERS 400 ML IV ONE (12:00)
[2018-06-06 12:01] LABS: Calcium 9.3 mg/dL (8.4-10.2); Potassium 3.9 mmol/L (3.5-5.1); Total Bilirubin 1.7 mg/dL (0.2-1.3); Total Protein 6.7 g/dL (6.3-8.2)
[2018-06-06 12:02] LABS: Anisocytosis Slight; HCT 32.5 % (39.0-53.0); HGB 10.8 gm/dL (13.0-17.5); MCH 32.9 pg (25.0-35.0); MCHC 33.2 g/dL (31.0-37.0); MCV 99.1 fL (80.0-100.0); Macrocytosis Slight; Platelet Count 333 k/uL (150-450); RBC 3.28 m/uL (4.30-5.90); RDW 16.5 % (11.5-15.5); WBC 11.2 k/uL (3.8-10.6)
[2018-06-06] MEDS ORDERED: MIDAZOLAM (PF) 2 MG/2 ML VIAL IV ONE (12:33)
[2018-06-06] MEDS ORDERED: SENNOSIDES-DOCUSATE SODIUM 1 EACH TAB PO PRN (12:41)
[2018-06-06] MEDS ORDERED: HYDROcodone/APAP 5-325MG 1 EACH TAB PO PRN (12:41)
[2018-06-06] MEDS ORDERED: ONDANSETRON 4 MG/2 ML VIAL IVP PRN (12:41)
[2018-06-06] MEDS ORDERED: LACTATED RINGERS 1,000 ML IV SCH (12:45)
[2018-06-06] MEDS ORDERED: PROPOFOL 10 MG/ML 20 ML VIAL IV ONE (13:00)
[2018-06-06] MEDS ORDERED: fentaNYL (PF) 50 MCG/ML 2 ML AMP ONE (13:00)
[2018-06-06] MEDS ORDERED: ROPIVACAINE 5 MG/ML 30 ML VIAL ONE (13:00)
[2018-06-06] MEDS ORDERED: SUCCINYLCHOLINE CHLORIDE 100 MG/5 ML SYR IV ONE (13:00)
[2018-06-06] MEDS ORDERED: LABETALOL 5 MG/ML VIAL MDV ONE (13:00)
[2018-06-06] MEDS ORDERED: PHENYLEPHRINE-0.9% NACL SYG 1 MG/10 ML SYRINGE ONE (13:00)
--- NOTE | 2018-06-06 13:08 | P.OP ---
Date of Procedure: 06/06/18 Procedure(s) Performed: right proximal humerus fracture closed reduction and IM nailing beach chair position C-arm Humeral Nail: Synthes Multiloc short proximal humeral nail Jory Villanueva PA-C assist EBL 100 PREOPERATIVE DIAGNOSES: 1. Right proximal humerus fracture, acute, 2 part, displaced POSTOPERATIVE DIAGNOSES: 1. Right proximal humerus fracture, acute, 2 part, displaced PROCEDURES PERFORMED: 1. Right proximal humerus fracture closed reduction and intramedullary nailing ANESTHESIA: Gen. HEEL DIPPER: Jory Villanueva PA-C (assistance with: Patient positioning, retraction , exposure, fixation, hemostasis, closure, dressing, splint) COMPLICATIONS: None ESTIMATED BLOOD LOSS: Approximately 100 ml DISPOSITION: To post-anesthesia care unit INDICATIONS: Mr. Pulido is a 73-year-old male with multiple medical problems who has sustained a displaced proximal humerus fracture of his right shoulder. We have tried conservative treatment for the past couple weeks, but the fracture remains in an unsatisfactory position. I have advised closed reduction and fixation. I have explained the risks and potential complications of this surgery as being inclusive of but not limited to bleeding, infection, scarring, discomfort, blood vessel and/or nerve damage, malunion, nonunion, stiffness, hardware irritation, deformity, rotational abnormality, need for further surgery, and other risks. We have extensively discussed the risk of stiffness of the shoulder and elbow joints, which is something that commonly occurs with these kinds of injuries. We have discussed the need for extended rehabilitation and occupational therapy to regain motion. The consent form has been signed. PROCEDURE: After appropriate consent was obtained, the patient was taken to the operating room placed in the supine position. Anesthesia was initiated, and after confirmation of adequate anesthesia, the patient was carefully positioned in the modified beachchair position. Care was taken to make sure that all pressure points were adequately padded. Head was secured with Coban wraps secured to the table with the head rotated away from the operative site. Prepping and draping were completed in the usual aseptic fashion using ChloraPrep, with the arm being prepped free. Timeout was called, confirming patient identity, side, procedure, and administration of antibiotics. Landmarks were outlined with a skin marking pen including clavicle, before meals joint, acromion, and scapular spine. Incision was created over the anterior lateral aspect of the shoulder directly in line with the anterolateral corner of the acromion. Saber-type incision was created and carried down through skin and into subcutaneous tissues and to muscular fascia. Deltoid muscular fascia was split superficially and entry into the subacromial space was performed bluntly using a hemostat. Deep deltoid fascia was split in line with its fibers for no greater than 3 cm from the acromial border. Self- retaining retractor was applied, which afforded good visualization of the rotator cuff surface. There was minimal bursal tissue present. Bicipital groove was noted and a spot was chosen proximal and posterior to the bicipital groove for placement of a guidepin. This guidepin was checked for position with C-arm imaging. Once a satisfactory spot had been selected, an incision was created into the rotator cuff substance, not at the insertion. The position of the pin was approximately 1 cm medial to the sulcus. The leafs of the rotator cuff insertion were tagged using number one Vicryl suture. The sutures were used to retract the tendon such that the guidepin could be inserted into the proximal fragment. Trajectory of the proximal fragment guidepin was carefully adjusted and the fracture was held in a reduced position during this step. The guidepin was then overreamed with a 10 mm reamer with a tissue protector present. A ball-tipped guidewire was then directed into the distal fragment and down to the distal humerus. The short 8 mm nail was called for. Careful reaming was performed to 9.5 mm. The nail was then inserted over the guidepin using no mallet taps just simple hand pressure with small rotational movements until the nail was fully seated. The nail was placed approximately 5 mm deep to the articular surface. Proximal screws were placed through the guide through small stab incisions. 3 such screws were used. Reduction of the fracture was accomplished at that point by gently rotating the distal fragment and then securing the reduction with gentle mallet taps with a bolster on the elbow. Once the reduction was satisfactory, distal interlocking was performed through the guide using small stab wounds. 2 distal interlocks were used. Reduction was checked in AP and rotated views and screw lengths were found to be satisfactory. Incisions were irrigated with normal saline and hemostasis was obtained using electrocautery, and closure of the rotator cuff was carefully performed using interrupted #1 Vicryl sutures. Deltoid fascia was closed using #1 Vicryl suture in interrupted fashion, followed by 2-0 Vicryl suture in the subcu tissue and 3-0 Monocryl running subcu suture for the skin followed by Dermabond. The small stab wounds were closed with 3-0 Vicryl suture followed by Dermabond. A soft dressing and sling were placed. Neurovascular status was satisfactory. Patient tolerated the procedure well and taken to recovery room in stable condition.
--- NOTE | 2018-06-06 13:31 | P.ONQ ---
Anesthesiology Proc Note - PNB - Peripheral Nerve Block Performed Right Interscalene Time Out Performed: Yes Procedure Start Time: 12:26 Procedure Stop Time: 12:32 Indication: Acute Post-Operative Pain, Analgesia, Requested by physician Sedation Type: Sedate with meaningful contact maintained Preparation: Sterile Prep Position: Supine Catheter: None Needle Types: On-Q Needle Size: 50mm (2") Needle Gauge: 21 Technique: Ultrasound Injectate: 0.5% Ropivacaine (see comment for volume) (20cc) Blood Aspirated: No Pain Paresthesia on Injection Noted: No Resistance on Injection: Normal Events: Uneventful and Well Tolerated
[2018-06-06 14:28] LABS: Eosinophils # (M) 0.22 k/uL (0-0.7); Lymphocytes # (M) 0.45 k/uL (1.0-4.8); Neutrophils # (M) 9.63 k/uL (1.3-7.7); Neutrophils % (M) 86 %; Nucleated Red Blood Cells 0 /100 WBC (0-0); Total Cells Counted 100
[2018-06-06 14:29] LABS: Poikilocytosis (M) Present
[2018-06-06] MEDS ORDERED: ceFAZolin 3,000 MG in SODIUM CHLORIDE 0.9% IRRIGATIO 3,000 ML IRRIGATION ONE (15:16)
--- NOTE | 2018-06-06 15:34 | XR ---
Fluoroscopy History: ORIF right humerus 1 min 34 sec fl-3 images
[2018-06-06 15:55] LABS: Glucose,Whole Blood 109 mg/dL (75-99)
[2018-06-06] MEDS ORDERED: ceFAZolin 3 GM in SODIUM CHLORIDE 0.9% 100 ML IVPB SCH (16:00)
[2018-06-06] MEDS ORDERED: LABETALOL SYRINGE 5 MG/ML IVP ONE (16:07)
[2018-06-06] MEDS: LACTATED RINGERS 1,000 ML IV SCH ×2 (18:20→18:31)
[2018-06-06 18:38] LABS: Glucose,Whole Blood 158 mg/dL (75-99)
[2018-06-06 20:39] LABS: Glucose,Whole Blood 131 mg/dL (75-99)
[2018-06-06] MEDS ORDERED: IPRATROPIUM-ALBUTEROL 3 ML NEB INHALATION PRN (22:29)
[2018-06-06] MEDS ORDERED: MIDODRINE 5 MG TAB PO PRN (22:30)
[2018-06-06] MEDS: ceFAZolin IN SWFI 2 GM/20 ML SYRINGE IVP SCH (22:57)
[2018-06-06] MEDS: FUROSEMIDE 40 MG TAB PO SCH (23:15)
[2018-06-07] MEDS: IPRATROPIUM-ALBUTEROL 3 ML NEB INHALATION SCH ×3 (00:31→12:02)
[2018-06-07 02:03] LABS: Glucose,Whole Blood 258 mg/dL (75-99)
[2018-06-07] MEDS: INSULIN ASPART 100 UNIT/ML 1 ML 10 ML VIAL SQ SCH ×2 (02:06→08:50)
[2018-06-07 04:54] LABS: Hemoglobin A1C 6.1 % (4.0-6.0)
[2018-06-07] MEDS: ceFAZolin IN SWFI 2 GM/20 ML SYRINGE IVP SCH (06:08)
[2018-06-07 07:28] VITALS: RESP 16; TEMP 98.4
[2018-06-07] MEDS ORDERED: SEVELAMER 800 MG TAB PO SCH (07:30)
[2018-06-07] MEDS ORDERED: INSULIN ASPART 100 UNIT/ML 1 ML 10 ML VIAL SQ SCH (07:30)
[2018-06-07 07:44] LABS: Glucose,Whole Blood 204 mg/dL (75-99)
[2018-06-07] MEDS ORDERED: CALCIUM ACETATE 667 MG CAP PO SCH (08:00)
[2018-06-07] MEDS: FUROSEMIDE 40 MG TAB PO SCH (08:52)
[2018-06-07] MEDS ORDERED: DULoxetine HCL 60 MG CAPSULE.DR PO SCH (09:00)
[2018-06-07] MEDS ORDERED: clonazePAM 1 MG TAB PO SCH (09:00)
[2018-06-07] MEDS ORDERED: amLODIPine 5 MG TAB PO SCH (09:00)
[2018-06-07] MEDS ORDERED: HYDROcodone/APAP 5-325MG 1 EACH TAB PO PRN (09:20)
[2018-06-07 09:23] VITALS: PULSE 72
--- NOTE | 2018-06-07 10:27 | P.DS ---
Providers Expected date of discharge: 06/07/18 Attending physician: Kenrick Melendez Consults: 06/06/18 12:41 Consult Physician Routine Consulting Provider: Dmitriy Pool Consult Reason/Comments: Medical management and anticoagulation Do you want consulting provider notified?: Yes 06/06/18 22:27 Consult Physician Routine Consulting Provider: Ashly Michael Consult Reason/Comments: hemodialysis patient M W F Do you want consulting provider notified?: Yes, Notify in am Primary care physician: Kiel Wang - Discharge Diagnosis(es) (1) Fall Current Visit: No Status: Acute (2) Humeral surgical neck fracture Current Visit: No Status: Acute Hospital Course: This is a 73-year-old male that sustained a recent fall and was found to have a displaced right proximal humerus fracture. The patient presented to the orthopedic office for evaluation. After discussion and consideration patient elects to proceed with a IM nailing of the right proximal humerus. The patient is seen preoperatively by his primary care physician and cleared for surgery. Patient is admitted to observation at [facility] on 06/06/2018 for a right proximal humerus IM nailing. The procedures performed without complication or sequelae. The patient is doing well postoperatively. Labs and vital signs are stable on day of discharge. On day of discharge patient's shoulder incision is healing well. There is minimal erythema. There is no drainage noted at this time. There is minimal soft tissue swelling to the right upper extremity. Patient has full hand, wrist , and elbow motion without difficulty or pain. Neurovascular status to the right upper extremity is intact. Patient is discharged to home in good condition. Pertinent Studies: Laboratory Tests 06/06/18 11:30 WBC 11.2 H RBC 3.28 L Hgb 10.8 L Hct 32.5 L RDW 16.5 H Patient Condition at Discharge: Stable Plan - Discharge Summary Discharge Rx Participant: Yes New Discharge Prescriptions: New HYDROcodone/APAP 5-325MG [[place] 5] 1 - 2 each PO Q4-6H PRN #40 tab PRN Reason: Pain Sennosides-Docusate Sodium [Senokot-S] 2 tab PO DAILY #30 tablet No Action Insulin Aspart (For Pump) [NovoLOG (For Pump)] 0.01 unit SQ-PUMP CONTINUOUS Furosemide [Lasix] 40 mg PO BID DULoxetine HCL [Cymbalta] 60 mg PO DAILY clonazePAM 1 - 2 mg PO HS PRN PRN Reason: Insomnia clonazePAM 1 mg PO DAILY Montelukast [Singulair] 10 mg PO HS tab Sevelamer [Renvela] 800 mg PO TID-W/MEALS #90 tab Calcium Acetate [Phoslo] 667 mg PO BID@0800,1200 Midodrine [ProAmatine] 5 mg PO AC-TID PRN PRN Reason: LOW PRESSURE HYDROcodone/APAP 5-325MG [[place] 5-325] 1 tab PO DAILY PRN PRN Reason: Pain-ONCE DAILY Discharge Medication List DULoxetine HCL [Cymbalta] 60 mg PO DAILY 02/20/17 [History] Furosemide [Lasix] 40 mg PO BID 02/20/17 [History] Insulin Aspart (For Pump) [NovoLOG (For Pump)] 0.01 unit SQ-PUMP CONTINUOUS [History] clonazePAM 1 - 2 mg PO HS PRN 05/08/18 [History] clonazePAM 1 mg PO DAILY 05/08/18 [History] Montelukast [Singulair] 10 mg PO HS tab 05/10/18 [Rx] Sevelamer [Renvela] 800 mg PO TID-W/MEALS #90 tab 05/12/18 [Rx] Calcium Acetate [Phoslo] 667 mg PO BID@0800,1200 05/28/18 [History] HYDROcodone/APAP 5-325MG [[place] 5-325] 1 tab PO DAILY PRN 06/04/18 [History] Midodrine [ProAmatine] 5 mg PO AC-TID PRN 06/04/18 [History] HYDROcodone/APAP 5-325MG [[place] 5] 1 - 2 each PO Q4-6H PRN #40 tab 06/07/18 [Rx] Sennosides-Docusate Sodium [Senokot-S] 2 tab PO DAILY #30 tablet 06/07/18 [Rx] Follow up Appointment(s)/Referral(s): Kaya Bethea, PAC [PHYSICIAN [employer]ER] - 2 Weeks Patient Instructions/Handouts: *Surgery [facility] - (Anesthesia) Discharge Instructions Outpatient Surgery, *Surgery [facility] - Shoulder Arthroscopy Activity/Diet/Wound Care/Special Instructions: Keep your sling on at all times, except for elbow range of motion exercises. Do not lift anything with your operative arm. You may remove surgical dressing after two days. After dressing is removed, you may get incision wet in the shower, pat dry with a clean towel and cover with gauze or a new bandage. Do not soak incision. Follow-up with Kaya Bethea PA-C in the office in two weeks. Call the office with any questions or concerns, Discharge Disposition: HOME SELF-CARE
[2018-06-07 11:15] VITALS: BP 180/70
[2018-06-07 12:09] LABS: Glucose,Whole Blood 289 mg/dL (75-99)
--- NOTE | 2018-06-07 13:22 | P.CONS ---
History of Present Illness - Reason for Consult Consult date: 06/07/18 Medical management - History of Present Illness This is a 73-year-old male patient of Dr. Wang and Dr. Morgan with past medical history of COPD, diabetes mellitus type 2 on insulin pump, end -stage renal disease on hemodialysis, hypertension, benign prostatic hypertrophy , obstructive sleep apnea, sick sinus syndrome status post pacemaker placement. Patient had a fall at home and sustained a right proximal humerus fracture status post closed reduction by Dr. Melendez. Patient is noted to have elevated blood pressure this morning 198/73. Midodrine will be discontinued and patient started on Norvasc. Repeat blood pressure was 180/70 and patient was cleared for discharge. Prescription sent for amlodipine to his pharmacy. Review of Systems All systems: negative Constitutional: Denies chills, Denies fatigue, Denies fever, Denies lethargy, Denies poor appetite, Denies weakness Eyes: denies blurred vision, denies pain Ears, nose, mouth and throat: Denies dysphagia, Denies headache, Denies sore throat, Denies vertigo Cardiovascular: Denies chest pain, Denies leg edema, Denies lightheadedness, Denies shortness of breath, Denies syncope Respiratory: Denies cough, Denies cough with sputum, Denies dyspnea, Denies excessive sputum, Denies hemoptysis, Denies home oxygen, Denies wheezing Gastrointestinal: Denies abdominal pain, Denies diarrhea, Denies loss of appetite, Denies melena, Denies nausea, Denies vomiting Musculoskeletal: Denies myalgias Integumentary: Denies pruritus, Denies rash, Denies wounds Neurological: Denies aphasia, Denies change in mentation, Denies confusion, Denies numbness, Denies weakness Psychiatric: Denies anxiety, Denies depression Endocrine: Denies fatigue, Denies weight change Past Medical History Past Medical History: COPD, Diabetes Mellitus, Dialysis, Hypertension, Prostate Disorder, Renal Disease, Sleep Apnea/CPAP/BIPAP Additional Past Medical History / Comment(s): BPH History of Any Multi-Drug Resistant Organisms: None Reported Past Surgical History: Heart Catheterization, Hernia Repair, Orthopedic Surgery , Pacemaker Additional Past Surgical History / Comment(s): L fistula 05/29 AV fistula creation 05/29/2016 [facility] Past Anesthesia/Blood Transfusion Reactions: No Reported Reaction Type of Cardiac Device: Permanent Pacemaker Device Placement Date:: 05/10/2018 Past Psychological History: Depression Smoking Status: Former smoker Past Alcohol Use History: Occasional Additional Past Alcohol Use History / Comment(s): STARTED SMOKING AT AGE 17 QUIT 2018 SMOKED 1PPD Past Drug Use History: None Reported - Past Family History Father History Unknown: Yes Mother History Unknown: Yes Brother(s) History Unknown: Yes Family Medical History: COPD, Liver Disease Daughter(s) History Unknown: Yes Medications and Allergies Home Medications Medication Instructions Recorded Confirmed Type DULoxetine HCL [Cymbalta] 60 mg PO DAILY 02/20/17 06/04/18 History Furosemide [Lasix] 40 mg PO BID 02/20/17 06/04/18 History Insulin Aspart (For Pump) [NovoLOG 0.01 unit SQ-PUMP CONTINUOUS 02/20/17 History (For Pump)] clonazePAM 1 - 2 mg PO HS PRN 05/08/18 06/04/18 History clonazePAM 1 mg PO DAILY 05/08/18 06/04/18 History Montelukast [Singulair] 10 mg PO HS tab 05/10/18 06/04/18 Rx Sevelamer [Renvela] 800 mg PO TID-W/MEALS #90 tab 05/12/18 06/04/18 Rx Calcium Acetate [PhosLo] 667 mg PO BID@0800,1200 05/28/18 06/06/18 History HYDROcodone/APAP 5-325MG [[place] 1 tab PO DAILY PRN 06/04/18 06/04/18 History 5-325] HYDROcodone/APAP 5-325MG [[place] 5] 1 - 2 each PO Q4-6H PRN #40 tab 06/07/18 Rx Sennosides-Docusate Sodium 2 tab PO DAILY #30 tablet 06/07/18 Rx [Senokot-S] amLODIPine [Norvasc] 5 mg PO DAILY #30 tab 06/07/18 Rx Allergies Allergy/AdvReac Type Severity Reaction Status Date / Time Sulfa (Sulfonamide Allergy Rash/Hives Verified 06/06/18 11:35 Antibiotics) levofloxacin [From Levaquin] AdvReac Unknown Verified 06/06/18 11:35 Physical Exam Vitals: Vital Signs Temp Pulse Pulse Pulse Resp BP BP 06/07/18 00:07 98.7 F 71 15 187/70 06/06/18 21:52 98.7 F 61 18 185/73 06/06/18 19:30 60 152/71 06/06/18 19:15 60 151/79 06/06/18 19:00 61 157/76 06/06/18 18:45 60 146/68 06/06/18 18:30 60 147/72 06/06/18 18:15 60 139/64 06/06/18 18:00 60 142/70 06/06/18 17:45 60 148/73 06/06/18 17:30 97.8 F 61 16 165/63 06/06/18 17:04 97.8 F 64 18 165/64 06/06/18 17:00 60 18 173/73 06/06/18 16:46 60 18 189/77 06/06/18 16:30 60 18 175/74 06/06/18 16:15 60 186/81 06/06/18 16:00 60 18 185/78 06/06/18 15:42 97.1 F L 64 18 201/89 06/06/18 12:39 62 16 179/130 06/06/18 11:31 202/94 06/06/18 11:09 98.0 F 73 16 Pulse Ox 06/07/18 00:07 100 06/06/18 21:52 100 06/06/18 19:30 06/06/18 19:15 06/06/18 19:00 06/06/18 18:45 06/06/18 18:30 06/06/18 18:15 06/06/18 18:00 06/06/18 17:45 06/06/18 17:30 97 06/06/18 17:04 98 06/06/18 17:00 99 06/06/18 16:46 98 06/06/18 16:30 94 L 06/06/18 16:15 98 06/06/18 16:00 100 06/06/18 15:42 100 06/06/18 12:39 100 06/06/18 11:31 06/06/18 11:09 95 Intake and Output 06/06/18 06/07/18 06/07/18 22:59 06:59 14:59 Intake Total 701 300 Output Total 150 200 Balance 551 100 Intake: IV 701 Intake, IV Titration 300 Amount Lactated Ringers 1,000 ml 300 @ 100 mls/hr IV .Q10H [facility] Rx#:[id number] Output: Urine 200 Estimated Blood Loss 150 Other: Voiding Method Urinal Weight 101.605 kg General Appearance: Alert, cooperative, no distress, appears stated age. Neck HEENT: Supple, no lymphadenopathy, no thyroid enlargement, no carotid bruits. Lungs: Decreased breath sound bilaterally otherwise clear to auscultation. Chest Wall: Right side of the chest wall has pacemaker felt under the skin. Heart: Irregular with 2/6 ejection systolic murmur. Abdomen: Soft, non-tender, bowel sounds active all four quadrants, no masses, no organomegaly. Extremities: no cyanosis or edema. Arm sling in place on the right. Left arm with fistula.. Skin: Skin color, texture, tugor normal, no rashes or lesions. Neurologic: Alert oriented x3 cranial nerves II through XII intact, no motor deficit, no abnormal balance or gait. Results CBC & Chem 7: 06/06/18 11:30 06/06/18 11:30 Labs: Abnormal Lab Results - Last 24 Hours (Table) 06/06/18 06/06/18 06/06/18 Range/Units 11:30 11:30 11:30 WBC 11.2 H (3.8-10.6) k/uL RBC 3.28 L (4.30-5.90) m/uL Hgb 10.8 L (13.0-17.5) gm/dL Hct 32.5 L (39.0-53.0) % RDW 16.5 H (11.5-15.5) % Neutrophils # (Manual) 9.63 H (1.3-7.7) k/uL Lymphocytes # (Manual) 0.45 L (1.0-4.8) k/uL Sodium 136 L (137-145) mmol/L Chloride 94 L (98-107) mmol/L Carbon Dioxide 34 H (22-30) mmol/L Creatinine 2.25 H (0.66-1.25) mg/dL Glucose 106 H (74-99) mg/dL POC Glucose (mg/dL) (75-99) mg/dL Hemoglobin A1c 6.1 H (4.0-6.0) % Total Bilirubin 1.7 H (0.2-1.3) mg/dL ALT 18 L (21-72) U/L Alkaline Phosphatase 143 H (38-126) U/L 06/06/18 06/06/18 06/06/18 Range/Units 15:51 18:26 20:27 WBC (3.8-10.6) k/uL RBC (4.30-5.90) m/uL Hgb (13.0-17.5) gm/dL Hct (39.0-53.0) % RDW (11.5-15.5) % Neutrophils # (Manual) (1.3-7.7) k/uL Lymphocytes # (Manual) (1.0-4.8) k/uL Sodium (137-145) mmol/L Chloride (98-107) mmol/L Carbon Dioxide (22-30) mmol/L Creatinine (0.66-1.25) mg/dL Glucose (74-99) mg/dL POC Glucose (mg/dL) 109 H 158 H 131 H (75-99) mg/dL Hemoglobin A1c (4.0-6.0) % Total Bilirubin (0.2-1.3) mg/dL ALT (21-72) U/L Alkaline Phosphatase (38-126) U/L 06/07/18 Range/Units 01:51 WBC (3.8-10.6) k/uL RBC (4.30-5.90) m/uL Hgb (13.0-17.5) gm/dL Hct (39.0-53.0) % RDW (11.5-15.5) % Neutrophils # (Manual) (1.3-7.7) k/uL Lymphocytes # (Manual) (1.0-4.8) k/uL Sodium (137-145) mmol/L Chloride (98-107) mmol/L Carbon Dioxide (22-30) mmol/L Creatinine (0.66-1.25) mg/dL Glucose (74-99) mg/dL POC Glucose (mg/dL) 258 H (75-99) mg/dL Hemoglobin A1c (4.0-6.0) % Total Bilirubin (0.2-1.3) mg/dL ALT (21-72) U/L Alkaline Phosphatase (38-126) U/L Assessment and Plan Plan: 1. Right proximal humerus fracture status post closed reduction. 2. Hypertension, uncontrolled. Norvasc started. Midodrine discontinued. 3. Diabetes mellitus type 2 insulin requiring on insulin pump. 4. COPD not in exacerbation. 5. Benign prostatic hypertrophy. 6. Recurrent depression. 7. Obstructive sleep apnea on CPAP. 8. End-stage renal disease on hemodialysis. 9. History of sick sinus syndrome status post pacemaker placement. Discharge plan: Return home Impression and plan of care have been directed as dictated by the signing physician. Jyoti Peraza nurse practitioner acting as scribe for signing physician.
[2018-06-07] MEDS ORDERED: MONTELUKAST 10 MG TAB PO SCH (21:00)
== END 2018-06-07 12:50 | disposition home or self-care (01) ==
LOC: OR 10:55 → EDSTATUS 12:30 → 4SSUR 15:42 → OR 06-07 12:50
PROVIDERS: ATTEND Orthopaedic Surgery
DX: S42.201A Unspecified fracture of upper end of right humerus, initial encounter for closed fracture (principal); W17.89XA Other fall from one level to another, initial encounter; I13.11 Hypertensive heart and chronic kidney disease without heart failure, with stage 5 chronic kidney disease, or end stage renal disease; E11.22 Type 2 diabetes mellitus with diabetic chronic kidney disease; N18.6 End stage renal disease; Z99.2 Dependence on renal dialysis; Z79.4 Long term (current) use of insulin; Z96.41 Presence of insulin pump (external) (internal); J44.9 Chronic obstructive pulmonary disease, unspecified; D29.1 Benign neoplasm of prostate; F32.9 Major depressive disorder, single episode, unspecified; Z87.891 Personal history of nicotine dependence; G47.33 Obstructive sleep apnea (adult) (pediatric); Z99.89 Dependence on other enabling machines and devices; I49.5 Sick sinus syndrome; Z95.0 Presence of cardiac pacemaker; Z79.01 Long term (current) use of anticoagulants; Z79.899 Other long term (current) drug therapy; Z88.1 Allergy status to other antibiotic agents; Z88.2 Allergy status to sulfonamides
CPT/HCPCS: 94640; 80053; 85027; 83036; 73060; 23615; J1100; J2405; J0690 ×3; J3010; J2795; J2370; J0330; J2704; J2250; 64415

== ENCOUNTER 2018-06-17 11:22 | Emergency (ER) | payer MEDICARE ==
[2018-06-17 11:39] VITALS: RESP 18
[2018-06-17] MEDS ORDERED: SODIUM CHLORIDE 0.9% 500 ML 500 ML IV ONE (12:50)
--- NOTE | 2018-06-17 13:21 | ED ---
General Adult HPI - General Chief complaint: Altered Mental Status Stated complaint: confusion Source: patient, family Mode of arrival: ambulatory Limitations: no limitations - Related Data Home Medications Medication Instructions Recorded Confirmed DULoxetine HCL [Cymbalta] 60 mg PO DAILY 02/20/17 06/17/18 Furosemide [Lasix] 40 mg PO BID 02/20/17 06/17/18 Insulin Aspart (For Pump) [NovoLOG 0.01 unit SQ-PUMP CONTINUOUS 02/20/17 (For Pump)] clonazePAM 1 - 2 mg PO HS PRN 05/08/18 06/17/18 clonazePAM 1 mg PO DAILY 05/08/18 06/17/18 Calcium Acetate [PhosLo] 667 mg PO BID@0800,1200 05/28/18 06/17/18 Beclomethasone Dipropionate [Qvar 1 puff INHALATION RT-DAILY 06/17/18 06/17/18 80 mcg] HYDROcodone/APAP 5-325MG [[place] 5] 1 - 2 tab PO Q4-6H PRN 06/17/18 06/17/18 Maureen-Chris 1 tab PO HS 06/17/18 06/17/18 Sevelamer [Renvela] 800 mg PO AC-TID 06/17/18 06/17/18 Previous Rx's Medication Instructions Recorded Montelukast [Singulair] 10 mg PO HS tab 05/10/18 Sennosides-Docusate Sodium 2 tab PO DAILY #30 tablet 06/07/18 [Senokot-S] amLODIPine [Norvasc] 5 mg PO DAILY #30 tab 06/07/18 Allergies Allergy/AdvReac Type Severity Reaction Status Date / Time Sulfa (Sulfonamide Allergy Rash/Hives Verified 06/17/18 11:53 Antibiotics) levofloxacin [From Levaquin] AdvReac Unknown Verified 06/17/18 11:53 Review of Systems ROS Statement: Those systems with pertinent positive or pertinent negative responses have been documented in the HPI. ROS Other: All systems not noted in ROS Statement are negative. Past Medical History Past Medical History: COPD, Diabetes Mellitus, Dialysis, Hypertension, Prostate Disorder, Renal Disease, Sleep Apnea/CPAP/BIPAP Additional Past Medical History / Comment(s): BPH History of Any Multi-Drug Resistant Organisms: None Reported Past Surgical History: Heart Catheterization, Hernia Repair, Orthopedic Surgery , Pacemaker Additional Past Surgical History / Comment(s): L fistula 05/29 AV fistula creation 05/29/2016 [facility] Past Anesthesia/Blood Transfusion Reactions: No Reported Reaction Type of Cardiac Device: Permanent Pacemaker Device Placement Date:: 05/10/2018 Past Psychological History: Depression Smoking Status: Former smoker Past Alcohol Use History: Occasional Past Drug Use History: None Reported - Past Family History Father History Unknown: Yes Mother History Unknown: Yes Brother(s) History Unknown: Yes Family Medical History: COPD, Liver Disease Daughter(s) History Unknown: Yes General Exam Limitations: no limitations Course Vital Signs 06/17/18 06/17/18 11:36 15:59 Temperature 98.4 F Pulse Rate 84 75 Respiratory 18 18 Rate Blood Pressure 205/106 200/114 O2 Sat by Pulse 96 96 Oximetry Medical Decision Making - Medical Decision Making Dictation was produced using [email or web address] dictation software. please excuse any grammatical, word or spelling errors. Chief Complaint:-year-old male sent in by psychologist for altered mental status. History of Present Illness: She is a 73-year-old male. He has a past medical history of COPD, diabetes, end-stage renal disease. He gets dialysis Saturday. He was an appointment with a psychologist. He was told to come to the emergency department. Accompanied by his . states that patient has been displaying signs of unusual behavior for the last month. She reports that he's been going to multiple different rhythms starting on lites and watching TV. Patient also has been having memory issues. States that his symptoms have been slowly increasing over the last month. Patient does not have a history of dementia. The ROS documented in this emergency department record has been reviewed and confirmed by me. Those systems with pertinent positive or negative responses have been documented in the HPI. All other systems are other negative and/or noncontributory. PHYSICAL EXAM: General Impression: Alert and oriented 3-4, no acute distress HEENT: Normocephalic atraumatic, extra-ocular movements intact, pupils equal and reactive to light bilaterally, mucous membranes moist. Cardiovascular: Heart regular rate and rhythm, S1&S2 audible, no murmurs, rubs or gallops Chest: Lungs clear to auscultation bilaterally, no rhonchi, no wheeze, no rales Abdomen: Bowel sounds present, abdomen soft, non-tender, non-distended, no organomegaly Musculoskeletal: Pulses present and equal in all extremities, no peripheral edema Motor: Power 5/5 bilaterally, no focal deficits noted Neurological: CN II-XII grossly intact, no focal motor or sensory deficits noted Skin: Intact with no visualized rashes, left upper extremity dialysis access Psych: Normal affect and mood ED course: 73-year-old male presents with confusion. Patient is having memory issues. Clinical presentation consistent with CVA or intracranial infection at this time. Vital signs upon arrival are within acceptable limits. No neuro deficits noted. Return evaluation obtained. CBC is within acceptable limits. Coag panel unremarkable. Metabolic panel shows troponin 0.058. This is likely secondary to acute kidney injury. Laboratory drug screen shows positive opiates. Brain CT was obtained showing subacute lacunar injuries of the left superior thalamus and left [place] radiata conspicuous standing since 2 weeks ago. Patient's blood pressure was trended and his blood pressure was 205/106 and 200 114 several hours later. Patient's symptoms likely secondary to hypertensive encephalopathy. Patient given 20 mg of labetalol. Discussed patient case with Dr. Griffith who recommends patient be transferred to [facility] with neurology. She did recommend transfer to [facility]. Patient be transferred to [facility]. EKG interpretation: Ventricular rate 63, ventricular paced rhythm, QS 160, QTC 489. No MT prolongation, no QTC prolongation, no ST or T-wave changes noted. EKG compared to 05/28/2018 showing no changes. Overall, this EKG is unremarkable - Lab Data Result diagrams: 06/17/18 14:09 06/17/18 14:09 Lab Results 06/17/18 06/17/18 06/17/18 Range/Units 14:00 14:09 14:09 WBC 4.9 (3.8-10.6) k/uL RBC 3.47 L (4.30-5.90) m/uL Hgb 10.9 L (13.0-17.5) gm/dL Hct 35.5 L (39.0-53.0) % MCV 102.3 H (80.0-100.0) fL MCH 31.4 (25.0-35.0) pg MCHC 30.7 L (31.0-37.0) g/dL RDW 17.8 H (11.5-15.5) % Plt Count 286 (150-450) k/uL Neutrophils % 60 % Lymphocytes % 19 % Monocytes % 11 % Eosinophils % 6 % Basophils % 1 % Neutrophils # 3.0 (1.3-7.7) k/uL Lymphocytes # 0.9 L (1.0-4.8) k/uL Monocytes # 0.5 (0-1.0) k/uL Eosinophils # 0.3 (0-0.7) k/uL Basophils # 0.0 (0-0.2) k/uL Hypochromasia Slight Anisocytosis Slight Macrocytosis Moderate PT (9.0-12.0) sec INR (<1.2) APTT (22.0-30.0) sec Sodium (137-145) mmol/L Potassium (3.5-5.1) mmol/L Chloride (98-107) mmol/L Carbon Dioxide (22-30) mmol/L Anion Gap mmol/L BUN (9-20) mg/dL Creatinine (0.66-1.25) mg/dL Est GFR (CKD-EPI)AfAm (>60 ml/min/1.73 sqM) Est GFR (CKD-EPI)NonAf (>60 ml/min/1.73 sqM) Glucose (74-99) mg/dL Calcium (8.4-10.2) mg/dL Total Bilirubin (0.2-1.3) mg/dL AST (17-59) U/L ALT (21-72) U/L Alkaline Phosphatase (38-126) U/L Total Creatine Kinase 72 (55-170) U/L CK-MB (CK-2) 2.4 (0.0-2.4) ng/mL CK-MB (CK-2) Rel Index 3.3 Troponin I 0.058 H* (0.000-0.034) ng/mL Total Protein (6.3-8.2) g/dL Albumin (3.5-5.0) g/dL Urine Color Yellow Urine Appearance Cloudy (Clear) Urine pH 8.5 H (5.0-8.0) Ur Specific [place] 1.015 (1.001-1.035) Urine Protein 3+ H (Negative) Urine Glucose (UA) 3+ H (Negative) Urine Ketones Negative (Negative) Urine Blood Negative (Negative) Urine Nitrite Negative (Negative) Urine Bilirubin Negative (Negative) Urine Urobilinogen <2.0 (<2.0) mg/dL Ur Leukocyte Esterase Negative (Negative) Urine RBC 2 (0-5) /hpf Urine WBC 17 H (0-5) /hpf Hyaline Casts 3 H (0-2) /lpf Urine Opiates Screen Detected H (NotDetected) Ur Oxycodone Screen Not Detected (NotDetected) Urine Methadone Screen Not Detected (NotDetected) Ur Propoxyphene Screen Not Detected (NotDetected) Ur Barbiturates Screen Not Detected (NotDetected) U Tricyclic Antidepress Not Detected (NotDetected) Ur Phencyclidine Scrn Not Detected (NotDetected) Ur Amphetamines Screen Not Detected (NotDetected) U Methamphetamines Scrn Not Detected (NotDetected) U Benzodiazepines Scrn Not Detected (NotDetected) Urine Cocaine Screen Not Detected (NotDetected) U Marijuana (THC) Screen Not Detected (NotDetected) 06/17/18 06/17/18 Range/Units 14:09 14:09 WBC (3.8-10.6) k/uL RBC (4.30-5.90) m/uL Hgb (13.0-17.5) gm/dL Hct (39.0-53.0) % MCV (80.0-100.0) fL MCH (25.0-35.0) pg MCHC (31.0-37.0) g/dL RDW (11.5-15.5) % Plt Count (150-450) k/uL Neutrophils % % Lymphocytes % % Monocytes % % Eosinophils % % Basophils % % Neutrophils # (1.3-7.7) k/uL Lymphocytes # (1.0-4.8) k/uL Monocytes # (0-1.0) k/uL Eosinophils # (0-0.7) k/uL Basophils # (0-0.2) k/uL Hypochromasia Anisocytosis Macrocytosis PT 12.0 (9.0-12.0) sec INR 1.1 (<1.2) APTT 26.3 (22.0-30.0) sec Sodium 136 L (137-145) mmol/L Potassium 4.8 (3.5-5.1) mmol/L Chloride 94 L (98-107) mmol/L Carbon Dioxide 29 (22-30) mmol/L Anion Gap 13 mmol/L BUN 20 (9-20) mg/dL Creatinine 4.66 H (0.66-1.25) mg/dL Est GFR (CKD-EPI)AfAm 13 (>60 ml/min/1.73 sqM) Est GFR (CKD-EPI)NonAf 12 (>60 ml/min/1.73 sqM) Glucose 113 H (74-99) mg/dL Calcium 9.6 (8.4-10.2) mg/dL Total Bilirubin 1.7 H (0.2-1.3) mg/dL AST 23 (17-59) U/L ALT 12 L (21-72) U/L Alkaline Phosphatase 177 H (38-126) U/L Total Creatine Kinase (55-170) U/L CK-MB (CK-2) (0.0-2.4) ng/mL CK-MB (CK-2) Rel Index Troponin I (0.000-0.034) ng/mL Total Protein 6.8 (6.3-8.2) g/dL Albumin 4.1 (3.5-5.0) g/dL Urine Color Urine Appearance (Clear) Urine pH (5.0-8.0) Ur Specific [place] (1.001-1.035) Urine Protein (Negative) Urine Glucose (UA) (Negative) Urine Ketones (Negative) Urine Blood (Negative) Urine Nitrite (Negative) Urine Bilirubin (Negative) Urine Urobilinogen (<2.0) mg/dL Ur Leukocyte Esterase (Negative) Urine RBC (0-5) /hpf Urine WBC (0-5) /hpf Hyaline Casts (0-2) /lpf Urine Opiates Screen (NotDetected) Ur Oxycodone Screen (NotDetected) Urine Methadone Screen (NotDetected) Ur Propoxyphene Screen (NotDetected) Ur Barbiturates Screen (NotDetected) U Tricyclic Antidepress (NotDetected) Ur Phencyclidine Scrn (NotDetected) Ur Amphetamines Screen (NotDetected) U Methamphetamines Scrn (NotDetected) U Benzodiazepines Scrn (NotDetected) Urine Cocaine Screen (NotDetected) U Marijuana (THC) Screen (NotDetected) Disposition Clinical Impression: Hypertensive encephalopathy Disposition: OTHER INSTITUTION NOT DEFINED Condition: Fair Referrals: Kiel Wang DO [Primary Care Provider] - 1-2 days Time of Disposition: 16:13 - Out of Hospital Transfer - Req. Specs Out of Hospital Transfer - Requested Specifics: Other Emergency Center ([facility] for neurology)
--- NOTE | 2018-06-17 14:06 | CT ---
EXAMINATION TYPE: CT brain wo con DATE OF EXAM: 06/17/2018 COMPARISON: 06/04/2018 HISTORY: Altered mental status CT DLP: 1087.4 mGycm Automated exposure control for dose reduction was used. FINDINGS: Near CSF attenuated hyperintensities within the superior aspect of the left thalamus and left del valle radiata are better appreciated on today's examination but subtly seen on the prior given volume avera ging of the lateral ventricle. Few other patchy areas of hypoattenuation are seen within the perivent ricular and subcortical white matter. There is symmetric prominence of the peripheral sulci and ventr icular system compatible with age-related volume loss. No suspicious extra axial fluid collection is seen. No acute intracranial hemorrhage, midline shift or mass effect is noted. Globes appear unremark able. Scant mucosal thickening is again noted within the left maxillary sinus. Remaining paranasal si nuses and mastoid air cells are well aerated. Calvarium appears intact. 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 OTHERWISE NO ACUTE INTRACRANIAL PROCESS.
--- NOTE | 2018-06-17 14:25 | XR ---
EXAMINATION TYPE: XR chest 2V DATE OF EXAM: 06/17/2018 COMPARISON: Prior chest x-ray 05/21/2018 HISTORY: Altered mental status TECHNIQUE: Frontal and lateral views of the chest are obtained. FINDINGS: Pacemaker is showing a similar orientation. Patient is rotated. No evident pneumothorax. H eart size is enlarged and thought to be stable. Central vascularity and interstitium are somewhat inc reased. There is interval development of increased attenuation at the right lung base. Right hemidiap hragm appears elevated. There are overlying cardiac leads. IMPRESSION: Correlate for pulmonary venous hypertension and interstitial edema, there may be right l ower lobe atelectasis versus pneumonia or edema and associated effusion. Follow-up is recommended.
[2018-06-17 14:38] LABS: Anisocytosis Slight; Basophils % (A) 1 %; Eosinophils # (A) 0.3 k/uL (0-0.7); Eosinophils % (A) 6 %; HCT 35.5 % (39.0-53.0); HGB 10.9 gm/dL (13.0-17.5); Hypochromasia Slight; Lymphocytes # (A) 0.9 k/uL (1.0-4.8); Lymphocytes % (A) 19 %; MCH 31.4 pg (25.0-35.0); MCHC 30.7 g/dL (31.0-37.0); MCV 102.3 fL (80.0-100.0); Macrocytosis Moderate; Mean Platelet Volume 7.4; Monocytes # (A) 0.5 k/uL (0-1.0); Monocytes % (A) 11 %; Neutrophils % (A) 60 %; Platelet Count 286 k/uL (150-450); RBC 3.47 m/uL (4.30-5.90); RDW 17.8 % (11.5-15.5); WBC 4.9 k/uL (3.8-10.6)
[2018-06-17 14:44] LABS: INR 1.1 (<1.2); Partial Thromboplastin Time 26.3 sec (22.0-30.0)
[2018-06-17 14:48] LABS: Albumin 4.1 g/dL (3.5-5.0); Calcium 9.6 mg/dL (8.4-10.2); Potassium 4.8 mmol/L (3.5-5.1); Total Bilirubin 1.7 mg/dL (0.2-1.3); Total Protein 6.8 g/dL (6.3-8.2)
[2018-06-17 15:06] LABS: Appearance,Urine Cloudy (Clear); Bilirubin,Urine Negative (Negative); Blood,Urine Negative (Negative); Color,Urine Yellow; Glucose,Urine (UA) 3+ (Negative); Hyaline Casts,Urine 3 /lpf (0-2); Ketones,Urine Negative (Negative); Leukocyte Esterase,Urine Negative (Negative); Nitrite,Urine Negative (Negative); PH, Urine 8.5 (5.0-8.0); Protein,Urine 3+ (Negative); RBC,Urine 2 /hpf (0-5); Specific Gravity,Urine 1.015 (1.001-1.035); Urobilinogen,Urine <2.0 mg/dL (<2.0); WBC,Urine 17 /hpf (0-5)
[2018-06-17 15:14] LABS: Creatine Kinase MB 2.4 ng/mL (0.0-2.4)
[2018-06-17 15:15] LABS: Amphetamine Screen,Urine Not Detected (NotDetected); Barbiturate Screen,Urine Not Detected (NotDetected); Benzodiazepines Screen,Urine Not Detected (NotDetected); Cocaine Screen,Urine Not Detected (NotDetected); Methadone Screen, Urine Not Detected (NotDetected); Opiate Screen,Urine Detected (NotDetected); Oxycodone Screen, Urine Not Detected (NotDetected); Phencyclidine Screen,Urine Not Detected (NotDetected); Tricyclic Antidepressant,Urine Not Detected (NotDetected); Urn Cannabinoid Scrn Not Detected (NotDetected)
[2018-06-17 15:16] LABS: Troponin I 0.058 ng/mL (0.000-0.034)
[2018-06-17] MEDS ORDERED: LABETALOL SYRINGE 5 MG/ML IVP STA (15:50)
[2018-06-17 15:59] VITALS: PULSE 75
[2018-06-17 16:28] VITALS: BP 168/85
[2018-06-17 16:33] VITALS: TEMP 98.5
== END 2018-06-17 18:00 | disposition other institution (70) ==
LOC: EC 11:22
DX: I67.4 Hypertensive encephalopathy (principal); J44.9 Chronic obstructive pulmonary disease, unspecified; I12.0 Hypertensive chronic kidney disease with stage 5 chronic kidney disease or end stage renal disease; E11.22 Type 2 diabetes mellitus with diabetic chronic kidney disease; N18.6 End stage renal disease; F32.9 Major depressive disorder, single episode, unspecified; G47.30 Sleep apnea, unspecified; Z99.89 Dependence on other enabling machines and devices; Z95.818 Presence of other cardiac implants and grafts; Z99.2 Dependence on renal dialysis; Z87.891 Personal history of nicotine dependence; Z79.4 Long term (current) use of insulin; Z79.51 Long term (current) use of inhaled steroids; Z79.899 Other long term (current) drug therapy; Z88.2 Allergy status to sulfonamides; Z88.1 Allergy status to other antibiotic agents; Z53.8 Procedure and treatment not carried out for other reasons
CPT/HCPCS: 36415; 70450; 71046; 80053; 80306; 81001; 82550; 82553; 84484; 85025; 85610; 85730; 93005; 96374; 99285

== ENCOUNTER 2020-02-19 21:30 | Inpatient (IN) | payer MEDICARE ==
[2020-02-19] MEDS ORDERED: SODIUM CHLORIDE 0.9% 1,000 ML IV STA (22:02)
[2020-02-19] MEDS ORDERED: methylPREDNISolone SOD SUCCI 125 MG/2 ML VIAL IV STA (22:03)
--- NOTE | 2020-02-19 22:31 | ED ---
Weakness HPI - General Chief complaint: Weakness Stated complaint: weakness Time Seen by Provider: 02/19/20 22:01 Source: patient, EMS, RN notes reviewed, old records reviewed Mode of arrival: EMS Limitations: no limitations - History of Present Illness Initial comments: This is a 74-year-old male presents today for evaluation regards to not feeling well patient is postop patient had hemodialysis port placed today and missed dialysis yesterday. Patient states he has been feeling like garbage all day unable to walk unable to move have progressed. I'll diarrhea no nausea vomiting no fevers no pain MD Complaint: generalized weakness, lack of energy, difficulty walking -: hour(s) Location: generalized Severity: severe Severity scale (1-10): 9 Consistency: constant Improves with: none Worsens with: none Context: recent surgery Associated Symptoms: confusion - Related Data Home Medications Medication Instructions Recorded Confirmed Furosemide [Lasix] 40 mg PO HS 02/20/17 02/19/20 Insulin Aspart (For Pump) [NovoLOG 0.01 unit SQ-PUMP CONTINUOUS 02/20/17 (For Pump)] clonazePAM 1.5 mg PO HS 05/08/18 02/19/20 Maureen-Chris 1 tab PO HS 06/17/18 02/19/20 Sevelamer [Renvela] 1,600 mg PO AC-TID 06/17/18 02/19/20 Apixaban [Eliquis] 5 mg PO SUTUTHSA@2100 02/16/20 02/19/20 Atorvastatin Calcium [Lipitor] 40 mg PO HS 02/16/20 02/19/20 Donepezil [Aricept] 5 mg PO HS 02/16/20 02/19/20 Omalizumab [Xolair] 150 mg SQ Q30D 02/16/20 02/19/20 QUEtiapine FUMARATE [SEROquel] 25 mg PO HS 02/16/20 02/19/20 Tamsulosin [Flomax] 0.4 mg PO HS 02/16/20 02/19/20 hydrALAZINE HCL [Apresoline] 25 mg PO HS 02/16/20 02/19/20 Apixaban [Eliquis] 2.5 mg PO MOWEFR@2100 02/19/20 02/19/20 DULoxetine HCL [Cymbalta] 20 mg PO HS 02/19/20 02/19/20 Latanoprost/Pf [Latanoprost 0.005% 1 drop BOTH EYES HS 02/19/20 02/19/20 Eye Drop] Loperamide HCl [Imodium A-D] 2 - 4 mg PO QID PRN 02/19/20 02/19/20 Nicotine Polacrilex [Nicorette] 4 mg BUCCAL Q2H PRN 02/19/20 02/19/20 amLODIPine [Norvasc] 5 mg PO HS 02/19/20 02/19/20 Previous Rx's Medication Instructions Recorded Montelukast [Singulair] 10 mg PO HS tab 05/10/18 Hydrocodone/Acetaminophen [[place] 1 tab PO Q6HR PRN 3 Days #6 tab 02/19/20 5-325] Allergies Allergy/AdvReac Type Severity Reaction Status Date / Time Sulfa (Sulfonamide Allergy Rash/Hives Verified 02/19/20 23:18 Antibiotics) levofloxacin [From Levaquin] AdvReac Rash/Hives Verified 02/19/20 23:18 Review of Systems ROS Statement: Those systems with pertinent positive or pertinent negative responses have been documented in the HPI. ROS Other: All systems not noted in ROS Statement are negative. Past Medical History Past Medical History: COPD, Diabetes Mellitus, Dialysis, Hypertension, Prostate Disorder, Renal Disease, Sleep Apnea/CPAP/BIPAP Additional Past Medical History / Comment(s): BPH, uses CPAP, hemodialysis M-W-F History of Any Multi-Drug Resistant Organisms: None Reported Past Surgical History: Cholecystectomy, Heart Catheterization, Hernia Repair, Orthopedic Surgery, Pacemaker Additional Past Surgical History / Comment(s): L fistula 05/29 AV fistula creation 05/29/2016 [facility], right shoulder proximal humerus repair Past Anesthesia/Blood Transfusion Reactions: No Reported Reaction Type of Cardiac Device: Permanent Pacemaker Device Placement Date:: 05/10/2018 Past Psychological History: Depression Smoking Status: Former smoker - Past Family History Father History Unknown: Yes Mother History Unknown: Yes Brother(s) History Unknown: Yes Family Medical History: COPD, Liver Disease Daughter(s) History Unknown: Yes General Exam Limitations: no limitations General appearance: alert, in no apparent distress Head exam: Present: atraumatic, normocephalic, normal inspection Eye exam: Present: normal appearance, PERRL, EOMI. Absent: scleral icterus, conjunctival injection, periorbital swelling ENT exam: Present: normal exam, mucous membranes moist Neck exam: Present: normal inspection. Absent: tenderness, meningismus, lymphadenopathy Respiratory exam: Present: normal lung sounds bilaterally. Absent: respiratory distress, wheezes, rales, rhonchi, stridor Cardiovascular Exam: Present: regular rate, normal rhythm, normal heart sounds. Absent: systolic murmur, diastolic murmur, rubs, gallop, clicks GI/Abdominal exam: Present: soft, normal bowel sounds. Absent: distended, tenderness, guarding, rebound, rigid Extremities exam: Present: normal inspection, full ROM, normal capillary refill. Absent: tenderness, pedal edema, joint swelling, calf tenderness Back exam: Present: normal inspection Neurological exam: Present: alert, oriented X3, CN II-XII intact Psychiatric exam: Present: normal affect, normal mood Skin exam: Present: warm, dry, intact, normal color. Absent: rash Course Vital Signs 02/19/20 21:41 Temperature 97.9 F Pulse Rate 52 L Respiratory 18 Rate Blood Pressure 181/74 O2 Sat by Pulse 95 Oximetry - Reevaluation(s) Reevaluation #1: 02/19/20 23:52 Medical records reviewed Reevaluation #2: 02/19/20 23:52 Patient is receiving potassium treatment, will consult for emergent dialysis - Consultations Consultation #1: Spoke with father who agrees for dialysis woke with urology who agrees for admission EKG Findings - EKG Comments: EKG Findings:: EKG is paced rhythm of 57, QRS 196, QTc 613 Medical Decision Making - Lab Data Result diagrams: 02/19/20 22:32 02/19/20 22:32 Lab Results 02/19/20 02/19/20 02/19/20 Range/Units 22:32 22:32 22:32 WBC 11.8 H (3.8-10.6) k/uL RBC 3.23 L (4.30-5.90) m/uL Hgb 10.3 L (13.0-17.5) gm/dL Hct 31.8 L (39.0-53.0) % MCV 98.3 (80.0-100.0) fL MCH 32.0 (25.0-35.0) pg MCHC 32.5 (31.0-37.0) g/dL RDW 13.3 (11.5-15.5) % Plt Count 168 (150-450) k/uL Neutrophils % 94 % Lymphocytes % 4 % Monocytes % 2 % Eosinophils % 0 % Basophils % 0 % Neutrophils # 11.0 H (1.3-7.7) k/uL Lymphocytes # 0.5 L (1.0-4.8) k/uL Monocytes # 0.2 (0-1.0) k/uL Eosinophils # 0.0 (0-0.7) k/uL Basophils # 0.0 (0-0.2) k/uL PT 10.8 (9.0-12.0) sec INR 1.0 (<1.2) APTT 25.3 (22.0-30.0) sec Sodium 128 L (137-145) mmol/L Potassium 8.6 H* (3.5-5.1) mmol/L Chloride 92 L (98-107) mmol/L Carbon Dioxide 24 (22-30) mmol/L Anion Gap 12 mmol/L BUN 63 H (9-20) mg/dL Creatinine 8.24 H* (0.66-1.25) mg/dL Est GFR (CKD-EPI)AfAm 7 (>60 ml/min/1.73 sqM) Est GFR (CKD-EPI)NonAf 6 (>60 ml/min/1.73 sqM) Glucose 344 H (74-99) mg/dL Plasma Lactic Acid Edmundo (0.7-2.0) mmol/L Calcium 8.5 (8.4-10.2) mg/dL Phosphorus 4.9 H (2.5-4.5) mg/dL Magnesium 2.3 (1.6-2.3) mg/dL Total Bilirubin 0.8 (0.2-1.3) mg/dL AST 27 (17-59) U/L ALT 24 (4-49) U/L Alkaline Phosphatase 135 H (38-126) U/L Creatine Kinase 130 (55-170) U/L Troponin I (0.000-0.034) ng/mL NT-Pro-B Natriuret Pep pg/mL Total Protein 6.9 (6.3-8.2) g/dL Albumin 4.5 (3.5-5.0) g/dL TSH 0.979 (0.465-4.680) mIU/L 02/19/20 02/19/20 02/19/20 Range/Units 22:32 22:32 22:32 WBC (3.8-10.6) k/uL RBC (4.30-5.90) m/uL Hgb (13.0-17.5) gm/dL Hct (39.0-53.0) % MCV (80.0-100.0) fL MCH (25.0-35.0) pg MCHC (31.0-37.0) g/dL RDW (11.5-15.5) % Plt Count (150-450) k/uL Neutrophils % % Lymphocytes % % Monocytes % % Eosinophils % % Basophils % % Neutrophils # (1.3-7.7) k/uL Lymphocytes # (1.0-4.8) k/uL Monocytes # (0-1.0) k/uL Eosinophils # (0-0.7) k/uL Basophils # (0-0.2) k/uL PT (9.0-12.0) sec INR (<1.2) APTT (22.0-30.0) sec Sodium (137-145) mmol/L Potassium (3.5-5.1) mmol/L Chloride (98-107) mmol/L Carbon Dioxide (22-30) mmol/L Anion Gap mmol/L BUN (9-20) mg/dL Creatinine (0.66-1.25) mg/dL Est GFR (CKD-EPI)AfAm (>60 ml/min/1.73 sqM) Est GFR (CKD-EPI)NonAf (>60 ml/min/1.73 sqM) Glucose (74-99) mg/dL Plasma Lactic Acid Edmundo 1.4 (0.7-2.0) mmol/L Calcium (8.4-10.2) mg/dL Phosphorus (2.5-4.5) mg/dL Magnesium (1.6-2.3) mg/dL Total Bilirubin (0.2-1.3) mg/dL AST (17-59) U/L ALT (4-49) U/L Alkaline Phosphatase (38-126) U/L Creatine Kinase (55-170) U/L Troponin I 0.017 (0.000-0.034) ng/mL NT-Pro-B Natriuret Pep 48742 pg/mL Total Protein (6.3-8.2) g/dL Albumin (3.5-5.0) g/dL TSH (0.465-4.680) mIU/L Critical Care Time Critical Care Time: Yes Total Critical Care Time: 31 Disposition Clinical Impression: Bradycardia, ARF (acute renal failure), Hyperkalemia Disposition: ADMITTED IP TO THIS HOSP Condition: Critical Is patient prescribed a controlled substance at d/c from ED?: No Referrals: Kiel Wang DO [Primary Care Provider] - 1-2 days
[2020-02-19 22:44] LABS: Basophils % (A) 0 %; Eosinophils % (A) 0 %; HCT 31.8 % (39.0-53.0); HGB 10.3 gm/dL (13.0-17.5); Lymphocytes # (A) 0.5 k/uL (1.0-4.8); Lymphocytes % (A) 4 %; MCHC 32.5 g/dL (31.0-37.0); MCV 98.3 fL (80.0-100.0); Mean Platelet Volume 9.3; Monocytes # (A) 0.2 k/uL (0-1.0); Monocytes % (A) 2 %; Neutrophils % (A) 94 %; Platelet Count 168 k/uL (150-450); RBC 3.23 m/uL (4.30-5.90); RDW 13.3 % (11.5-15.5); WBC 11.8 k/uL (3.8-10.6)
[2020-02-19 22:52] LABS: Partial Thromboplastin Time 25.3 sec (22.0-30.0); Prothrombin Time 10.8 sec (9.0-12.0)
[2020-02-19 22:56] LABS: Albumin 4.5 g/dL (3.5-5.0); Calcium 8.5 mg/dL (8.4-10.2); Magnesium 2.3 mg/dL (1.6-2.3); Phosphorus 4.9 mg/dL (2.5-4.5); Total Bilirubin 0.8 mg/dL (0.2-1.3); Total Protein 6.9 g/dL (6.3-8.2)
--- NOTE | 2020-02-19 22:59 | XR ---
EXAMINATION TYPE: XR abdomen acute w cxr DATE OF EXAM: 02/19/2020 COMPARISON: 06/17/2018 chest x-ray HISTORY: Short of breath dizziness. Weakness. TECHNIQUE: 4 views FINDINGS: Heart appears slightly enlarged. There is no gross heart failure. There is a right axillary pacemaker. There is no sign of intestinal obstruction or pneumoperitoneum. There are clips from chol ecystectomy. There is some device noted apparently implanted over the right mid abdomen. There is vas cular calcification. Fecal pattern is normal. IMPRESSION: No active cardiopulmonary disease. Mild cardiomegaly. There is improved aeration of the l ungs compared to old chest x-ray. Nonacute abdomen.
[2020-02-19 23:16] LABS: Potassium 8.6 mmol/L (3.5-5.1)
[2020-02-19] MEDS ORDERED: DEXTROSE 50% SYRINGE 50 ML IVP STA (23:22)
[2020-02-19] MEDS ORDERED: INSULIN REGULAR 100 UNIT/ML VIAL IV ONE (23:22)
[2020-02-19] MEDS ORDERED: SODIUM POLYSTYRENE SULFONATE 15 GM/60 ML BOTTLE PO STA (23:22)
[2020-02-19] MEDS ORDERED: SODIUM BICARB 8.4% 50 ML SYR (1 MEQ/ML) IV STA (23:26)
[2020-02-19] MEDS ORDERED: ALBUTEROL NEBULIZED (CONC) 20 MG, SODIUM CHLORIDE 0.9% NEBULIZ 3 ML INHALATION ONE ×2 (23:27)
[2020-02-19] MEDS ORDERED: CALCIUM GLUCONATE 2 GM in SODIUM CHLORIDE 0.9% 100 ML IVPB ONE (23:45)
[2020-02-20] MEDS ORDERED: ALBUTEROL NEBULIZED (CONC) 20 MG, SODIUM CHLORIDE 0.9% NEBULIZ 3 ML INHALATION ONE ×2 (00:45)
[2020-02-20] MEDS ORDERED: HYDROmorphone 1 MG/ML 1 ML SYRINGE IVP PRN (03:33)
[2020-02-20] MEDS ORDERED: HYDROmorphone 1 MG/ML 1 ML SYRINGE IVP STA (03:33)
[2020-02-20 04:17] LABS: Glucose,Whole Blood 197 mg/dL (75-99)
[2020-02-20 06:01] LABS: Glucose,Whole Blood 268 mg/dL (75-99)
[2020-02-20] MEDS ORDERED: NICOTINE POLACRILEX 4 MG PO PRN (08:25)
[2020-02-20 09:21] LABS: Basophils % (A) 0 %; Eosinophils % (A) 0 %; HCT 30.5 % (39.0-53.0); Lymphocytes # (A) 0.5 k/uL (1.0-4.8); Lymphocytes % (A) 4 %; MCH 32.4 pg (25.0-35.0); MCHC 32.7 g/dL (31.0-37.0); MCV 98.9 fL (80.0-100.0); Mean Platelet Volume 9.1; Monocytes # (A) 0.3 k/uL (0-1.0); Monocytes % (A) 2 %; Neutrophils # (A) 11.5 k/uL (1.3-7.7); Neutrophils % (A) 93 %; Platelet Count 170 k/uL (150-450); RBC 3.08 m/uL (4.30-5.90); WBC 12.4 k/uL (3.8-10.6)
[2020-02-20 09:39] LABS: Albumin 4.3 g/dL (3.5-5.0); Calcium 8.8 mg/dL (8.4-10.2); Potassium 5.9 mmol/L (3.5-5.1); Total Bilirubin 0.7 mg/dL (0.2-1.3); Total Protein 6.6 g/dL (6.3-8.2)
[2020-02-20] MEDS: HYDROcodone/APAP 5-325MG 1 EACH TAB PO PRN ×2 (11:43→21:28)
[2020-02-20] MEDS: SEVELAMER 800 MG TAB PO SCH ×2 (11:44→18:35)
--- NOTE | 2020-02-20 11:52 | P.HPIM ---
History of Present Illness H&P Date: 02/20/20 HISTORY OF PRESENT ILLNESS This is a 71-year-old patient of Dr. Hull with a past medical history significant for COPD, diabetes mellitus, chronic kidney disease with dialysis, hypertension, BPH, sleep apnea. Patient receives hemodialysis Saturday. However on Saturday he did not have dialysis due to placement of a peritoneal dialysis port. In the evening the patient developed significant weakness was unable to ambulate and was unsteady. He felt very shaky and was stumbling out of his room. Patient was unable to hold a glass of water spilling at all over himself. Patient denies any changes to his diet or meds. Patient denies any diarrhea vomiting or nausea. Patient has no fever or chills. At this time patient found resting in bed without any difficulties. Patient states that he feels significantly better he was dialysis last night. Patient was found to have a potassium of 8.6 in the emergency room. Patient was seen by Dr. Michael. If patient's potassium continues to be elevated patient will have dialysis again today with possible discharge tomorrow. He will then resume his dialysis schedule of Saturday. REVIEW OF SYSTEMS Constitutional: No fever, no chills, no night sweats. No weight change. Reports weakness-resolved, fatigue or lethargy. No daytime sleepiness. EENT: No headache. No blurred vision or double vision, no loss of vision. No loss of Hearing, no ringing in the ears, no dizziness. No nasal drainage or congestion. No epistaxis. No sore throat. Lungs: No shortness of breath, cough, no sputum production. No wheezing. Cardiovascular: No chest pain, reports lower extremity edema. No palpitations. No paroxysmal nocturnal dyspnea. Reports orthopnea. No lightheadedness or dizziness. No syncopal episodes. Abdominal: No abdominal pain. No nausea, vomiting. No diarrhea. No constipation. No bloody or tarry stools. No loss of appetite. Genitourinary: No dysuria, increased frequency, urgency. No urinary retention. Musculoskeletal: No myalgias. Report muscle weakness improved, reports gait dysfunction resolved, no frequent falls. No back pain. No neck pain. Integumentary: No wounds, no lesions. No rash or pruritus. No unusual bruising. No change in hair or nails. Neurologic: No aphasia. No facial droop. No change in mentation. No head injury. No headache. No paralysis. No paresthesia. Psychiatric: No depression. No anxiety. No mood swings. Endocrine: No abnormal blood sugars. No weight change. No excessive sweating or thirst. No cold intolerance. SOCIAL HISTORY Patient was a smoker from age 17 and quit in 2018 he smoked one pack a day. He denies any alcohol, marijuana or illicit drug use. He lives with his . 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 FAMILY HISTORY Brother with COPD and liver disease. PHYSICAL EXAMINATION Gen: This is an 74-year-old male. Resting in bed and appears comfortable.. No acute respiratory distress noted. HEENT: Head is atraumatic, normocephalic. Pupils equal, round. Sclerae is anicteric. Oral mucous membranes are dry. NECK: Supple. No JVD. No lymphadenopathy. No thyromegaly. LUNGS: Diminished to the bilat bases. No wheezes or rhonchi. No intercostal retractions. HEART: Regular rate and rhythm. Systolic murmur at the apex. ABDOMEN: Soft. Bowel sounds are present. No masses. No tenderness. EXTREMITIES: Trace bilateral pedal edema. No calf tenderness. NEUROLOGICAL: Patient is awake, alert and oriented x3. Cranial nerves 2 through 12 are grossly intact. ASSESSMENT AND PLAN 1. Hyperkalemia. Consult Dr. Michael. Dialysis for night. Repeat potassium in the a.m. for possible dialysis today. 2. Chronic kidney disease with renal dialysis. As noted above, Renvela 1600 mg PO AC-TID, Nephrocaps one each by mouth 3. Weakness. 4. Diabetes mellitus. On insulin pump. 5. Hypertension. Continue Norvasc 5 mg, Klonopin 1.5 mg by mouth at bedtime, hydroxyzine 25 mg by mouth at bedtime, Lasix 40 mg by mouth at bedtime, Eliquis 2.5 mg MOWEFR, Eliquis 5 mg SUTUTHSA, 6. BPH. Flomax 0.4 mg 7. Obstructive sleep apnea. Uses CPAP machine. 8. Mild dementia. Aricept 5 mg by mouth 9. Depression. Cymbalta 20 mg by mouth, Seroquel 25 mg by mouth at bedtime 10. Chronic pain [place] 10/03/2024 one tablet every 6 hours as needed 11. Sick sinus syndrome post single chamber permanent pacemaker. 12. Cardiomyopathy. 13. DVT prophylaxis. Eliquis. 14. GI prophylaxis. Protonix. Patient will be admitted to the hospital for a minimum of 2 night stay. Discharge plan: To be determined. PT and OT consults. Impression and plan of care have been directed as dictated by the signing physician. Katelyn Matute nurse practitioner acting as scribe for signing physician. Past Medical History Past Medical History: COPD, Diabetes Mellitus, Dialysis, Hypertension, Prostate Disorder, Renal Disease, Sleep Apnea/CPAP/BIPAP Additional Past Medical History / Comment(s): BPH, uses CPAP, hemodialysis M-W- History of Any Multi-Drug Resistant Organisms: None Reported Past Surgical History: Cholecystectomy, Heart Catheterization, Hernia Repair, Orthopedic Surgery, Pacemaker Additional Past Surgical History / Comment(s): L fistula 05/29 AV fistula creation 05/29/2016 [facility], right shoulder proximal humerus r epair Past Anesthesia/Blood Transfusion Reactions: No Reported Reaction Type of Cardiac Device: Permanent Pacemaker Device Placement Date:: 05/10/2018 Past Psychological History: Depression Smoking Status: Former smoker Past Alcohol Use History: Rare Additional Past Alcohol Use History / Comment(s): STARTED SMOKING AT AGE 17, QUIT 2018, SMOKED 1PPD Past Drug Use History: None Reported - Past Family History Father History Unknown: Yes Mother History Unknown: Yes Brother(s) History Unknown: Yes Family Medical History: COPD, Liver Disease Daughter(s) History Unknown: Yes Medications and Allergies Home Medications Medication Instructions Recorded Confirmed Type Furosemide [Lasix] 40 mg PO HS 02/20/17 02/19/20 History Insulin Aspart (For Pump) [NovoLOG 0.01 unit SQ-PUMP CONTINUOUS 02/20/17 02/19/20 History (For Pump)] clonazePAM 1.5 mg PO HS 05/08/18 02/19/20 History Montelukast [Singulair] 10 mg PO HS tab 05/10/18 02/19/20 Rx Maureen-Chris 1 tab PO HS 06/17/18 02/19/20 History Sevelamer [Renvela] 1,600 mg PO AC-TID 06/17/18 02/19/20 History Apixaban [Eliquis] 5 mg PO SUTUTHSA@2100 20 09/18/20 History Atorvastatin Calcium [Lipitor] 40 mg PO HS 02/16/20 02/19/20 History Donepezil [Aricept] 5 mg PO HS 02/16/20 02/19/20 History Omalizumab [Xolair] 150 mg SQ Q30D 02/16/20 02/19/20 History QUEtiapine FUMARATE [SEROquel] 25 mg PO HS 02/16/20 02/19/20 History Tamsulosin [Flomax] 0.4 mg PO HS 02/16/20 02/19/20 History hydrALAZINE HCL [Apresoline] 25 mg PO HS 02/16/20 02/19/20 History Apixaban [Eliquis] 2.5 mg PO MOWEFR@209902/19/20 02/19/20 History DULoxetine HCL [Cymbalta] 20 mg PO HS 02/19/20 02/19/20 History Hydrocodone/Acetaminophen [[place] 1 tab PO Q6HR PRN 3 Days #6 tab 02/19/20 02/19/20 Rx 5-325] Latanoprost/Pf [Latanoprost 0.005% 1 drop BOTH EYES HS 02/19/20 02/19/20 History Eye Drop] Loperamide HCl [Imodium A-D] 2 - 4 mg PO QID PRN 02/19/20 02/19/20 History Nicotine Polacrilex [Nicorette] 4 mg BUCCAL Q2H PRN 02/19/20 02/19/20 History amLODIPine [Norvasc] 5 mg PO HS 02/19/20 02/19/20 History Allergies Allergy/AdvReac Type Severity Reaction Status Date / Time Sulfa (Sulfonamide Allergy Rash/Hives Verified 02/19/20 23:18 Antibiotics) levofloxacin [From Levaquin] AdvReac Rash/Hives Verified 02/19/20 23:18 Physical Exam Vitals: Vital Signs Temp Pulse Pulse Resp BP BP Pulse Ox 02/20/20 08:30 97.8 F 80 18 173/77 95 02/20/20 05:52 97.7 F 85 20 136/68 96 02/20/20 04:00 85 20 02/20/20 03:00 97.7 F 85 18 136/68 96 02/20/20 02:33 97.2 F L 90 18 120/66 02/20/20 01:02 76 02/20/20 00:46 87 18 179/89 95 02/20/20 00:45 68 02/20/20 00:03 98.2 F 84 20 151/72 96 02/19/20 23:30 87 17 179/79 97 02/19/20 21:41 97.9 F 52 L 18 181/74 95 Intake and Output 02/19/20 02/20/20 02/20/20 22:59 06:59 14:59 Intake Total 240 Output Total 1999 Balance -1999 240 Intake: Oral 240 Output: Hemodialysis 1999 Other: Voiding Method Urinal # Voids 0 0 Weight 112.037 kg 110.6 kg Results CBC & Chem 7: 02/20/20 08:36 02/20/20 08:36 Labs: Abnormal Lab Results - Last 24 Hours (Table) 02/19/20 02/19/20 02/20/20 Range/Units 22:32 22:32 04:16 WBC 11.8 H (3.8-10.6) k/uL RBC 3.23 L (4.30-5.90) m/uL Hgb 10.3 L (13.0-17.5) gm/dL Hct 31.8 L (39.0-53.0) % Neutrophils # 11.0 H (1.3-7.7) k/uL Lymphocytes # 0.5 L (1.0-4.8) k/uL Sodium 128 L (137-145) mmol/L Potassium 8.6 H* (3.5-5.1) mmol/L Chloride 92 L (98-107) mmol/L BUN 63 H (9-20) mg/dL Creatinine 8.24 H* (0.66-1.25) mg/dL Glucose 344 H (74-99) mg/dL POC Glucose (mg/dL) 197 H (75-99) mg/dL Phosphorus 4.9 H (2.5-4.5) mg/dL Alkaline Phosphatase 135 H (38-126) U/L 02/20/20 02/20/20 02/20/20 Range/Units 05:59 08:36 08:36 WBC 12.4 H (3.8-10.6) k/uL RBC 3.08 L (4.30-5.90) m/uL Hgb 10.0 L (13.0-17.5) gm/dL Hct 30.5 L (39.0-53.0) % Neutrophils # 11.5 H (1.3-7.7) k/uL Lymphocytes # 0.5 L (1.0-4.8) k/uL Sodium 134 L (137-145) mmol/L Potassium 5.9 H (3.5-5.1) mmol/L Chloride 93 L (98-107) mmol/L BUN 44 H (9-20) mg/dL Creatinine 6.60 H (0.66-1.25) mg/dL Glucose 321 H (74-99) mg/dL POC Glucose (mg/dL) 268 H (75-99) mg/dL Phosphorus (2.5-4.5) mg/dL Alkaline Phosphatase (38-126) U/L Thrombosis Risk Factor Assmnt - Choose All That Apply Each Factor Represents 1 point: Abnormal pulmonary function (COPD) Other Risk Factors: Yes Each Risk Factor Represents 2 Points: Age 61-74 years Other congenital or acquired thrombophilia - If yes, enter type in comment: No Thrombosis Risk Factor Assessment Total Risk Factor Score: 3 Thrombosis Risk Factor Assessment Level: Moderate Risk
[2020-02-20 12:11] LABS: Glucose,Whole Blood 229 mg/dL (75-99)
--- NOTE | 2020-02-20 13:49 | CONS ---
CONSULTATION REASON FOR CONSULT: End-stage renal disease. HISTORY OF PRESENT ILLNESS: Patient is a 74-year-old male who was admitted to the hospital with complaints of weakness with history of weakness and a fall at home. The patient was quite weak and therefore his called EMS. He denies any fever, chills, nausea, vomiting, abdominal pain or diarrhea. The patient was recently being switched over to peritoneal dialysis. He had a PD catheter placed on yesterday by Dr. Keene. No history of abdominal pain, nausea, vomiting. PAST MEDICAL HISTORY: End-stage renal disease, COPD, type 2 diabetes, hypertension, prostatic disorder, obstructive sleep apnea, sleep apnea, cholecystectomy. PAST SURGICAL HISTORY: Cholecystectomy, cardiac catheterization, hernia repair, right shoulder surgery, surgery for AV fistula. SOCIAL HISTORY: Patient is a former smoker. No history of drug abuse or alcohol abuse. MEDICATIONS: As listed. ALLERGIES: INCLUDE SULFA AND LEVAQUIN. PHYSICAL EXAMINATION: Patient is comfortable, awake, alert, oriented x3, not in any acute distress. Blood pressure is 136/79, heart rate 76 per minute, patient is afebrile. Examination of the heart S1, S2. Examination of the lungs, bilateral breath sounds are heard. Abdomen is soft, nontender. Examination of lower extremities shows no significant edema. DISTRIBUTION COORDINATOR exam grossly intact. PD catheter dressing is intact. LABS SHOW: Sodium 128, potassium 8.6, chloride 92. BUN 63, creatinine 8.24 yesterday. Hemoglobin 10.3 g/dL. ASSESSMENT: 1. End-stage renal disease, on hemodialysis on a Saturday, Saturday, Saturday schedule. The patient is in the process of switching over to PD. He just had his PD catheter placed yesterday. However, it will take about 2 weeks to start PD. 2. Severe hyperkalemia in a patient with end-stage renal disease. No significant increase in dietary noncompliance. Status post hemodialysis last night. We will check labs again today and dialyze the patient again if his potassium remains elevated. 3. Status post PD catheter placement yesterday. Dressing is intact. 4. Mild volume overload currently improved. 5. Fall and weakness most likely related to severe hyperkalemia. 6. Anemia of chronic disease. 7. CKD mineral bone disorder. PLAN: Check labs today. If potassium is elevated, we will dialyze the patient again today. He will have his next treatment as outpatient on Saturday. He could be discharged post dialysis today. Continue his usual home medications. Patient is advised again regarding strict low-potassium diet. Thank you for this consultation. We will continue to follow the patient with you during his hospitalization. LESLIE / JOHNATHAN: [id number] /
[2020-02-20 17:13] LABS: Glucose,Whole Blood 123 mg/dL (75-99)
[2020-02-20 17:25] LABS: Glucose,Whole Blood 143 mg/dL (75-99)
[2020-02-20 20:42] LABS: Glucose,Whole Blood 253 mg/dL (75-99)
[2020-02-20] MEDS ORDERED: QUEtiapine 25 MG TAB PO SCH (21:00)
[2020-02-20] MEDS ORDERED: ATORVASTATIN 40 MG TAB PO SCH (21:00)
[2020-02-20] MEDS ORDERED: LATANOPROST 0.005% OPHTH DROPS 2.5 ML BTL BOTH EYES SCH (21:00)
[2020-02-20] MEDS ORDERED: FOLIC ACID-VIT B COMPLEX-VIT C 1 CAP PO SCH (21:00)
[2020-02-20] MEDS ORDERED: hydrALAZINE HCL 25 MG TAB PO SCH (21:00)
[2020-02-20] MEDS ORDERED: amLODIPine 5 MG TAB PO SCH (21:00)
[2020-02-20] MEDS ORDERED: FUROSEMIDE 40 MG TAB PO SCH (21:00)
[2020-02-20] MEDS ORDERED: MONTELUKAST 10 MG TAB PO SCH (21:00)
[2020-02-20] MEDS ORDERED: DONEPEZIL 5 MG TAB PO SCH (21:00)
[2020-02-20] MEDS ORDERED: DULoxetine HCL 20 MG CAPSULE.DR PO SCH (21:00)
[2020-02-20] MEDS ORDERED: TAMSULOSIN 0.4 MG CAP.ER.24H PO SCH (21:00)
[2020-02-20] MEDS ORDERED: APIXABAN 5 MG TAB PO SCH (21:00)
[2020-02-20] MEDS ORDERED: clonazePAM 1 MG TAB PO SCH (21:00)
[2020-02-21 06:06] LABS: Glucose,Whole Blood 132 mg/dL (75-99)
[2020-02-21] MEDS: SEVELAMER 800 MG TAB PO SCH (06:25)
[2020-02-21 07:41] LABS: Basophils % (A) 0 %; Eosinophils % (A) 0 %; HCT 28.9 % (39.0-53.0); HGB 9.3 gm/dL (13.0-17.5); Lymphocytes % (A) 8 %; MCHC 32.2 g/dL (31.0-37.0); MCV 99.5 fL (80.0-100.0); Mean Platelet Volume 9.1; Monocytes # (A) 0.6 k/uL (0-1.0); Monocytes % (A) 5 %; Neutrophils # (A) 10.4 k/uL (1.3-7.7); Neutrophils % (A) 85 %; Platelet Count 161 k/uL (150-450); WBC 12.2 k/uL (3.8-10.6)
[2020-02-21 07:56] LABS: Calcium 8.6 mg/dL (8.4-10.2); Potassium 5.2 mmol/L (3.5-5.1); Total Bilirubin 0.8 mg/dL (0.2-1.3); Total Protein 6.3 g/dL (6.3-8.2)
[2020-02-21 09:08] VITALS: TEMP 97.8
--- NOTE | 2020-02-21 10:23 | PN ---
PROGRESS NOTE Patient is seen for followup for end-stage renal disease. He was admitted to the hospital with weakness and fall and was found to have severe hyperkalemia at about 8.3 mEq/L. The patient was dialyzed on initial admission and repeat sodium the next day was 5.9. Therefore, he had another two hours of treatment yesterday. The patient is being switched over to peritoneal dialysis and had a peritoneal dialysis catheter placed on 02/19/2020. He denies any significant complaints today. PHYSICAL EXAMINATION: Blood pressure is 167/67, heart rate 60 per minute, he is afebrile. Examination of the heart S1, S2. Examination of the lungs, bilateral breath sounds are heard. Abdomen is soft, nontender. Examination of lower extremities shows no significant edema. LABS: Labs show potassium of 5.2 today. Sodium 136, hemoglobin 9.3. ASSESSMENT: 1. End-stage renal disease, on hemodialysis on a Saturday, Saturday, Saturday schedule, being switched over to PD. Catheter was just placed on 02/19/2020. He will need at least two weeks for healing and training prior to starting the peritoneal dialysis. Patient will have hemodialysis tomorrow. He can be discharged today and follow up as outpatient for hemodialysis tomorrow. 2. Hyperkalemia, currently improved post dialysis. Patient is advised regarding strict low-potassium diet and to avoid constipation. 3. Chronic kidney disease mineral bone disorder maintained on Renvela. 4. Hypertension, controlled. PLAN: Patient can be discharged from nephrology standpoint. Follow up as outpatient for hemodialysis tomorrow. MMODL / IJN: [id number] /
--- NOTE | 2020-02-21 11:54 | P.DS ---
Providers Date of admission: 02/19/20 23:52 Attending physician: Dmitriy Pool Consults: 02/19/20 23:51 Consult Physician Routine Consulting Provider: Ashly Michael Consult Reason/Comments: known Do you want consulting provider notified?: Yes Primary care physician: Kiel Brooks Hospital Course: HISTORY OF PRESENT ILLNESS This is a 71-year-old patient of Dr. Hull with a past medical history significant for COPD, diabetes mellitus, chronic kidney disease with dialysis, hypertension, BPH, sleep apnea. Patient receives hemodialysis Saturday. However on Saturday he did not have dialysis due to placement of a peritoneal dialysis port. In the evening the patient developed significant weakness was unable to ambulate and was unsteady. He felt very shaky and was stumbling out of his room. Patient was unable to hold a glass of water spilling at all over himself. Patient denies any changes to his diet or meds. Patient denies any diarrhea vomiting or nausea. Patient has no fever or chills. At this time patient found resting in bed without any difficulties. Patient states that he feels significantly better he was dialysis last night. Patient was found to have a potassium of 8.6 in the emergency room. Patient was seen by Dr. Michael. If patient's potassium continues to be elevated patient will have dialysis again today with possible discharge tomorrow. He will then resume his dialysis schedule of Saturday. 02/20: Patient had dialysis yesterday evening his repeat potassium is 5.2 today. Patient will be discharged home today on scheduled to follow-up with his regular dialysis treatment starting on Saturday afternoon. Patient verbalized understanding. Patient's fianc resting in bed without acute distress. She has been up to the bathroom without any difficulties. Patient states that his strength has returned and he is able to ambulate without difficulties. Discharge diagnosis: 1. Hyperkalemia. 2. Chronic kidney disease with renal dialysis. 3. Weakness. 4. Diabetes mellitus. 5. Hypertension. 6. BPH. 7. Obstructive sleep apnea. 8. Mild dementia. 9. Depression. 10. Chronic pain 11. Sick sinus syndrome post single chamber permanent pacemaker. 12. Cardiomyopathy. Discharge disposition: Home with self-care Impression and plan of care have been directed as dictated by the signing phys elinoran. Katelyn Matute nurse practitioner acting as scribe for signing physician. Cc copy to Dr. Wang Patient Condition at Discharge: Critical Plan - Discharge Summary Discharge Rx Participant: No New Discharge Prescriptions: Continue Insulin Aspart (For Pump) [NovoLOG (For Pump)] 0.01 unit SQ-PUMP CONTINUOUS Furosemide [Lasix] 40 mg PO HS clonazePAM 1.5 mg PO HS Montelukast [Singulair] 10 mg PO HS tab Sevelamer [Renvela] 1,600 mg PO AC-TID Maureen-Chris 1 tab PO HS Apixaban [Eliquis] 5 mg PO SUTUTHSA@2100 Tamsulosin [Flomax] 0.4 mg PO HS Donepezil [Aricept] 5 mg PO HS hydrALAZINE HCL [Apresoline] 25 mg PO HS QUEtiapine FUMARATE [SEROquel] 25 mg PO HS Omalizumab [Xolair] 150 mg SQ Q30D Atorvastatin Calcium [Lipitor] 40 mg PO HS Hydrocodone/Acetaminophen [[place] 5-325] 1 tab PO Q6HR PRN 3 Days #6 tab PRN Reason: Pain amLODIPine [Norvasc] 5 mg PO HS Apixaban [Eliquis] 2.5 mg PO MOWEFR@2100 DULoxetine HCL [Cymbalta] 20 mg PO HS Latanoprost/Pf [Latanoprost 0.005% Eye Drop] 1 drop BOTH EYES HS Loperamide HCl [Imodium A-D] 2 - 4 mg PO QID PRN PRN Reason: Diarrhea Nicotine Polacrilex [Nicorette] 4 mg BUCCAL Q2H PRN PRN Reason: cravings Discharge Medication List Furosemide [Lasix] 40 mg PO HS 02/20/17 [History] Insulin Aspart (For Pump) [NovoLOG (For Pump)] 0.01 unit SQ-PUMP CONTINUOUS 02/20/17 [History] clonazePAM 1.5 mg PO HS 05/08/18 [History] Montelukast [Singulair] 10 mg PO HS tab 05/10/18 [Rx] Maureen-Chris 1 tab PO HS 06/17/18 [History] Sevelamer [Renvela] 1,600 mg PO AC-TID 06/17/18 [History] Apixaban [Eliquis] 5 mg PO SUTUTHSA@2100 20 [History] Atorvastatin Calcium [Lipitor] 40 mg PO HS 02/16/20 [History] Donepezil [Aricept] 5 mg PO HS 02/16/20 [History] Omalizumab [Xolair] 150 mg SQ Q30D 02/16/20 [History] QUEtiapine FUMARATE [SEROquel] 25 mg PO HS 02/16/20 [History] Tamsulosin [Flomax] 0.4 mg PO HS 02/16/20 [History] hydrALAZINE HCL [Apresoline] 25 mg PO HS 02/16/20 [History] Apixaban [Eliquis] 2.5 mg PO MOWEFR@209902/19/20 [History] DULoxetine HCL [Cymbalta] 20 mg PO HS 02/19/20 [History] Hydrocodone/Acetaminophen [[place] 5-325] 1 tab PO Q6HR PRN 3 Days #6 tab 02/19/20 [Rx] Latanoprost/Pf [Latanoprost 0.005% Eye Drop] 1 drop BOTH EYES HS 02/19/20 [History] Loperamide HCl [Imodium A-D] 2 - 4 mg PO QID PRN 02/19/20 [History] Nicotine Polacrilex [Nicorette] 4 mg BUCCAL Q2H PRN 02/19/20 [History] amLODIPine [Norvasc] 5 mg PO HS 02/19/20 [History] Follow up Appointment(s)/Referral(s): Kiel Wang DO [Primary Care Provider] - 1-2 days Patient Instructions/Handouts: Hyperkalemia (DC)
[2020-02-21 12:07] LABS: Glucose,Whole Blood 161 mg/dL (75-99)
[2020-02-21 13:00] VITALS: BP 177/75; PULSE 67; RESP 17
[2020-02-22] MEDS ORDERED: APIXABAN 2.5 MG TABLET PO SCH (21:00)
== END 2020-02-21 13:28 | disposition home or self-care (01) | DRG 640 ==
LOC: EC 21:30 → 3SCARD 23:52
PROVIDERS: ADMIT Internal Medicine Geriatric Medicine; ATTEND Internal Medicine Geriatric Medicine
PROC: 5A1D70Z Performance of Urinary Filtration, Intermittent, Less than 6 Hours Per Day (ICD-10-PCS; principal; 2020-02-20)
DX: E87.5 Hyperkalemia (principal); N18.6 End stage renal disease; N17.9 Acute kidney failure, unspecified; I12.0 Hypertensive chronic kidney disease with stage 5 chronic kidney disease or end stage renal disease; I42.9 Cardiomyopathy, unspecified; N40.0 Benign prostatic hyperplasia without lower urinary tract symptoms; J44.9 Chronic obstructive pulmonary disease, unspecified; I49.5 Sick sinus syndrome; G89.29 Other chronic pain; G47.33 Obstructive sleep apnea (adult) (pediatric); E11.22 Type 2 diabetes mellitus with diabetic chronic kidney disease; D63.1 Anemia in chronic kidney disease; Z96.41 Presence of insulin pump (external) (internal); F32.9 Major depressive disorder, single episode, unspecified; F03.90 Unspecified dementia, unspecified severity, without behavioral disturbance, psychotic disturbance, mood disturbance, and anxiety; E87.70 Fluid overload, unspecified; E83.89 Other disorders of mineral metabolism; Z79.899 Other long term (current) drug therapy; Z79.01 Long term (current) use of anticoagulants; Z79.4 Long term (current) use of insulin; Z88.2 Allergy status to sulfonamides; Z88.1 Allergy status to other antibiotic agents; Z90.49 Acquired absence of other specified parts of digestive tract; Z98.890 Other specified postprocedural states; Z99.2 Dependence on renal dialysis; Z87.891 Personal history of nicotine dependence; Z95.0 Presence of cardiac pacemaker; Z82.5 Family history of asthma and other chronic lower respiratory diseases; Z83.79 Family history of other diseases of the digestive system; Z91.81 History of falling
CPT/HCPCS: 74022; 80053; 82550; 83605; 83735; 83880; 84100; 84443; 84484; 85025; 85610; 85730; 90935; 93005; 96361; 96365; 96375; 99291

== ENCOUNTER → 2020-02-19 | Day surgery (SDC) | payer MEDICARE ==
[2020-02-16 12:07] VITALS: BMI 32.7
[~2020-02-19] MED LIST changes: +ACETAMINOPHEN TAB 500 MG TAB ONE; +BUPIVACAINE (PF) 0.25% 30 ML VIAL SQ ONE; +GLYCOPYRROLATE 0.2 MG/ML 2 ML VIAL ONE; +HEPARIN SODIUM,PORCINE 5,000 UNIT/ML 1 ML VIAL ONE; +HEPARIN SODIUM,PORCINE 5,000 UNIT/ML 1 ML VIAL SQ ONE; +HYDROcodone/APAP 5-325MG 1 EACH TAB PO PRN; +KETAMINE 10 MG/ML 20 ML VIAL ONE; +LACTATED RINGERS 1,000 ML IV SCH; +LIDOCAINE 1% INJ 10MG/ML (20 ML MDV) ONE; -MIDAZOLAM (PF) 2 MG/2 ML VIAL IV PRN; +MIDAZOLAM 2 MG/2 ML VIAL ONE; +NALOXONE 0.4 MG/ML 1 ML VIAL IV PRN; +ONDANSETRON 4 MG/2 ML VIAL ONE; +PROPOFOL 10 MG/ML 20 ML VIAL IV ONE; -ceFAZolin IN SWFI 2 GM/20 ML SYRINGE IVP ONE; +fentaNYL (PF) 50 MCG/ML 2 ML AMP ONE
[2020-02-19 10:50] VITALS: RESP 16; TEMP 97.9
[2020-02-19 11:08] LABS: Glucose,Whole Blood 190 mg/dL (75-99)
[2020-02-19 11:34] LABS: Calcium 8.9 mg/dL (8.4-10.2); Potassium 5.5 mmol/L (3.5-5.1)
[2020-02-19 14:08] VITALS: PULSE 63
--- NOTE | 2020-02-19 14:09 | P.OP ---
Date of Procedure: 02/19/20 Procedure(s) Performed: PREOPERATIVE DIAGNOSIS: Renal failure POSTOPERATIVE DIAGNOSIS: Same PROCEDURE: Peritoneal dialysis catheter insertion SURGEON: Yecenia EBL: Minimal ANESTHESIA: Sedation plus local COMPLICATIONS: None OPERATIVE PROCEDURE: The patient was placed in the operative table in the supine position. His abdomen was prepped and draped in usual sterile fashion. A small vertical incision was made in the left periumbilical location. Dissection down through the subcutaneous tissues took place using electrocautery. The anterior rectus was divided vertically using the scalpel. The rectus was bluntly. The posterior rectus was visualized. An 0 Vicryl pursestring was placed. A small opening in the posterior rectus fascia and peritoneum took place using a Metzenbaum scissors. There were no adhesions to the suture that was placed. The pigtail catheter was advanced into the pelvis over a stylette. No resistance was met. The inner cuff was secured to the fascia using the 0 Vicryl pursestring that was placed. The catheter was tunneled to an exit site in the left lateral lower quadrant. The catheter was connected to the 1 L bag of saline and approximated 800 mL of saline was easily introduced into the peritoneal cavity. The fluid was then allowed to evacuate. The majority of the fluid was returned. The anterior rectus fascia was then reapproximated using a running 0 Vicryl stitch. The subcutaneous tissues reprepped using 3-0 Vicryl sutures and the skin using 4-0 Monocryl sutures. The outpatient dialysis adapter was applied to the end of the catheter. A sterile dressings then applied after skin glue was placed over the incision. DISPOSITION: Stable to recovery room
[2020-02-19 14:11] LABS: Glucose,Whole Blood 223 mg/dL (75-99)
[2020-02-19 14:27] VITALS: BP 130/74
== END ==
LOC: OR 10:28
PROVIDERS: ATTEND Surgery
DX: E11.22 Type 2 diabetes mellitus with diabetic chronic kidney disease (principal); N18.6 End stage renal disease; I15.0 Renovascular hypertension; D63.1 Anemia in chronic kidney disease; F32.9 Major depressive disorder, single episode, unspecified; E11.65 Type 2 diabetes mellitus with hyperglycemia; G47.33 Obstructive sleep apnea (adult) (pediatric); I48.91 Unspecified atrial fibrillation; J96.00 Acute respiratory failure, unspecified whether with hypoxia or hypercapnia; J45.51 Severe persistent asthma with (acute) exacerbation; J44.1 Chronic obstructive pulmonary disease with (acute) exacerbation; E87.1 Hypo-osmolality and hyponatremia; Z88.1 Allergy status to other antibiotic agents; Z88.2 Allergy status to sulfonamides; Z79.01 Long term (current) use of anticoagulants; Z79.4 Long term (current) use of insulin; Z79.899 Other long term (current) drug therapy; Z86.19 Personal history of other infectious and parasitic diseases; Z87.01 Personal history of pneumonia (recurrent); Z81.1 Family history of alcohol abuse and dependence; Z90.49 Acquired absence of other specified parts of digestive tract; Z98.890 Other specified postprocedural states; Z87.891 Personal history of nicotine dependence; Z95.0 Presence of cardiac pacemaker
CPT/HCPCS: 80048; 49421; C1752; J2250; J1644; J1100; J0690; J2405; J2001; J3010; J2704

== ENCOUNTER 2020-11-26 19:00 | Observation (INO) | payer MEDICARE ==
--- NOTE | 2020-11-26 19:22 | ED ---
General Adult HPI - General Chief complaint: Syncope Stated complaint: syncope Time Seen by Provider: 11/26/20 19:11 Source: EMS Mode of arrival: EMS Limitations: no limitations - History of Present Illness Initial comments: Dictation was produced using [employer] dictation software. please excuse any grammatical, word or spelling errors. Chief Complaint: 75-year-old male with several comorbidities presents to the emergency department for syncope History of Present Illness: 75-year-old male has multiple comorbidities. His comorbidity list includes COPD, diabetes, dialysis, hypertension, end-stage renal disease, AICD. Presents to the emergency department after episode of syncope. Patient states that he was walking into the restaurant [employer] when he syncopized. Denies feeling any significant symptoms prior to the epi sode. States that episode happen with a split second. He did strike his head. Denies any headache. Patient takes and a correlation medications. She feels well at the moment. He is brought in by EMS. The ROS documented in this emergency department record has been reviewed and confirmed by me. Those systems with pertinent positive or negative responses have been documented in the HPI. All other systems are other negative and/or noncontributory. PHYSICAL EXAM: General Impression: Alert and oriented x3, not in acute distress HEENT: Mild abrasions to the left maxilla, extra-ocular movements intact, pupils equal and reactive to light bilaterally, mucous membranes moist. Cardiovascular: Heart regular rate and rhythm Chest: Able to complete full sentences, no retractions, no tachypnea Abdomen: abdomen soft, non-tender, non-distended, no organomegaly Musculoskeletal: Pulses present and equal in all extremities, no peripheral edema Motor: no focal deficits noted Neurological: CN II-XII grossly intact, no focal motor or sensory deficits noted Skin: Intact with no visualized rashes Psych: Normal affect and mood ED course: 75-year-old male who is currently well appearing at bedside presents to the emergency department after episode of syncope. Patient has multiple significant comorbidities. Vital signs upon arrival are within acceptable limits. EKG shows prolonged QT. EKG shows narrow complex accelerated junctional rhythm. There is no clear discernible P waves. However is P wave could be buried in the T-wave. There are no skip beats. interpreted as first- degree heart block. EKG is significantly different from most recent EKG performed on 02/19/2020 which showed ventricular paced rhythm. Pacemaker was interrogated. There were no episodes of V. tach rhythm greater than 150 since October 2020. EKG interpretation: Ventricular rate 77, accelerated junctional rhythm, QRS 114, QTc 527. No W[place] prolongation, no QTC prolongation, no ST or T-wave changes noted. Case is discussed Dr. Pool was went except patient's care. Spoke with Dr. Michael who will arrange for an hospital peritoneal dialysis during his admission. - Related Data Home Medications Medication Instructions Recorded Confirmed Insulin Aspart (For Pump) [NovoLOG 0.01 unit SQ-PUMP CONTINUOUS 02/20/17 11/26/20 (For Pump)] clonazePAM 0.5 mg PO DAILY 05/08/18 11/26/20 Maureen-Chris 1 tab PO W/SUPPER 06/17/18 11/26/20 Atorvastatin Calcium [Lipitor] 40 mg PO W/SUPPER 02/16/20 11/26/20 Donepezil [Aricept] 5 mg PO HS 02/16/20 11/26/20 Omalizumab [Xolair] 150 mg SQ Q30D 02/16/20 11/26/20 QUEtiapine FUMARATE [SEROquel] 25 mg PO HS 02/16/20 11/26/20 Tamsulosin [Flomax] 0.4 mg PO DAILY@1200 02/16/20 11/26/20 Apixaban [Eliquis] 2.5 mg PO BID@1200,2100 02/19/20 11/26/20 Latanoprost/Pf [Latanoprost 0.005% 1 drop BOTH EYES HS 02/19/20 11/26/20 Eye Drop] Nicotine Polacrilex [Nicorette] 4 mg BUCCAL Q2H PRN 02/19/20 11/26/20 Calcium Acetate [PhosLo] 1,334 mg PO BID-W/MEALS 11/26/20 11/26/20 Calcium Acetate [PhosLo] 667 mg PO HS 11/26/20 11/26/20 Cinacalcet HCl [Sensipar] 90 mg PO MOWEFR 11/26/20 11/26/20 DULoxetine HCL [Cymbalta] 60 mg PO DAILY 11/26/20 11/26/20 Insulin NPH Human Isophane 6 unit SQ HS 11/26/20 11/26/20 [Novolin N Flexpen] Midodrine HCl 5 mg PO BID PRN 11/26/20 11/26/20 Sodium Bicarbonate (Unknown 1 tab PO HS 11/26/20 11/26/20 Strength) calcitrioL [Calcitriol] 1 mcg PO MO 11/26/20 11/26/20 clonazePAM [KlonoPIN] 1 mg PO HS 11/26/20 11/26/20 Previous Rx's Medication Instructions Recorded Montelukast [Singulair] 10 mg PO HS tab 05/10/18 Allergies Allergy/AdvReac Type Severity Reaction Status Date / Time Sulfa (Sulfonamide Allergy Rash/Hives Verified 11/26/20 20:22 Antibiotics) levofloxacin [From Levaquin] AdvReac Rash/Hives Verified 11/26/20 20:22 Review of Systems ROS Statement: Those systems with pertinent positive or pertinent negative responses have been documented in the HPI. ROS Other: All systems not noted in ROS Statement are negative. Past Medical History Past Medical History: COPD, Diabetes Mellitus, Dialysis, Hypertension, Prostate Disorder, Renal Disease, Sleep Apnea/CPAP/BIPAP, Syncope Additional Past Medical History / Comment(s): BPH, uses CPAP, hemodialysis M-W- History of Any Multi-Drug Resistant Organisms: None Reported Past Surgical History: Cholecystectomy, Heart Catheterization, Hernia Repair, Orthopedic Surgery, Pacemaker Additional Past Surgical History / Comment(s): L fistula 05/29 AV fistula creation 05/29/2016 [facility], right shoulder proximal humerus repair Past Anesthesia/Blood Transfusion Reactions: No Reported Reaction Type of Cardiac Device: Permanent Pacemaker Device Placement Date:: 05/10/2018 Past Psychological History: Depression Smoking Status: Former smoker Past Alcohol Use History: Rare Past Drug Use History: None Reported - Past Family History Father History Unknown: Yes Mother History Unknown: Yes Brother(s) History Unknown: Yes Family Medical History: COPD, Liver Disease Daughter(s) History Unknown: Yes General Exam Limitations: no limitations Course Vital Signs 11/26/20 11/26/20 19:01 20:24 Temperature 98 F Pulse Rate 87 81 Respiratory 18 18 Rate Blood Pressure 129/76 109/65 O2 Sat by Pulse 99 98 Oximetry Medical Decision Making - Lab Data Result diagrams: 11/26/20 19:28 Lab Results 11/26/20 11/26/20 11/26/20 Range/Units 19:28 19:28 19:31 WBC 8.6 (3.8-10.6) k/uL RBC 3.46 L (4.30-5.90) m/uL Hgb 11.9 L (13.0-17.5) gm/dL Hct 35.1 L (39.0-53.0) % MCV 101.5 H (80.0-100.0) fL MCH 34.6 (25.0-35.0) pg MCHC 34.1 (31.0-37.0) g/dL RDW 14.8 (11.5-15.5) % Plt Count 268 (150-450) k/uL MPV 8.4 Neutrophils % 74 % Lymphocytes % 11 % Monocytes % 8 % Eosinophils % 5 % Basophils % 1 % Neutrophils # 6.3 (1.3-7.7) k/uL Lymphocytes # 0.9 L (1.0-4.8) k/uL Monocytes # 0.7 (0-1.0) k/uL Eosinophils # 0.4 (0-0.7) k/uL Basophils # 0.1 (0-0.2) k/uL Macrocytosis Slight PT 11.6 (9.0-12.0) sec INR 1.1 (<1.2) APTT 25.8 (22.0-30.0) sec Plasma Lactic Acid Edmundo 1.5 (0.7-2.0) mmol/L Disposition
[2020-11-26 19:53] LABS: Basophils # (A) 0.1 k/uL (0-0.2); Basophils % (A) 1 %; Eosinophils # (A) 0.4 k/uL (0-0.7); Eosinophils % (A) 5 %; HCT 35.1 % (39.0-53.0); HGB 11.9 gm/dL (13.0-17.5); Lymphocytes # (A) 0.9 k/uL (1.0-4.8); Lymphocytes % (A) 11 %; MCH 34.6 pg (25.0-35.0); MCHC 34.1 g/dL (31.0-37.0); MCV 101.5 fL (80.0-100.0); Macrocytosis Slight; Mean Platelet Volume 8.4; Monocytes # (A) 0.7 k/uL (0-1.0); Monocytes % (A) 8 %; Neutrophils # (A) 6.3 k/uL (1.3-7.7); Neutrophils % (A) 74 %; Platelet Count 268 k/uL (150-450); RBC 3.46 m/uL (4.30-5.90); RDW 14.8 % (11.5-15.5); WBC 8.6 k/uL (3.8-10.6)
--- NOTE | 2020-11-26 19:54 | CT ---
EXAMINATION TYPE: CT brain rubén gray con DATE OF EXAM: 11/26/2020 COMPARISON: Fall. Pain. HISTORY: Fall with head injury. CT DLP: 1681.2 mGycm Automated exposure control for dose reduction was used. There is cerebral atrophy. There is no mass effect nor midline shift. There is no sign of intracrania l hemorrhage. The calvarium is intact. The cervical vertebra have normal alignment. There is mild disc space narrowing at C3-4 and C5-6. The re is spurring of the endplates. Posterior elements are intact. The skull base is intact IMPRESSION: Cerebral atrophy. No acute intracranial abnormality. Mild cervical spondylotic changes. No fracture.
--- NOTE | 2020-11-26 19:56 | XR ---
EXAMINATION TYPE: XR chest 1V portable DATE OF EXAM: 11/26/2020 COMPARISON: 02/19/2020 HISTORY: Fall. Pain. TECHNIQUE: Single view FINDINGS: There is no heart failure nor confluent pneumonic infiltrate. Costophrenic angles are clear . There are chest leads. IMPRESSION: No active cardiopulmonary disease. No adverse change.
--- NOTE | 2020-11-26 19:58 | XR ---
EXAMINATION TYPE: XR pelvis AP view DATE OF EXAM: 11/26/2020 COMPARISON: 05/21/2018 HISTORY: Pain. TECHNIQUE: Single view FINDINGS: The pelvic ring is intact. The proximal femurs are intact. There is vascular calcification. IMPRESSION: No fracture. No change compared to old exam.
[2020-11-26 20:00] LABS: INR 1.1 (<1.2); Partial Thromboplastin Time 25.8 sec (22.0-30.0); Prothrombin Time 11.6 sec (9.0-12.0)
[2020-11-26] MEDS ORDERED: NALOXONE 0.4 MG/ML 1 ML VIAL IV PRN (20:35)
[2020-11-26 21:06] LABS: Ionized Calcium 3.9 mg/dL (4.5-5.3)
[2020-11-26 21:14] LABS: Calcium 7.8 mg/dL (8.4-10.2)
[2020-11-26 21:31] LABS: Magnesium 1.9 mg/dL (1.6-2.3); Potassium 4.9 mmol/L (3.5-5.1)
[2020-11-26] MEDS: Acetaminophen-Codeine 300-30mg TAB PO PRN (23:47)
[2020-11-26] MEDS: NICOTINE 14MG/24HR PATCH TRANSDERM SCH (23:47)
[2020-11-27] MEDS: DIALYSIS (PERIT 1.5%) 2,500 ML 37.5 G/2,500 ML BAG INTRAPERIT SCH ×5 (00:09→23:58)
[2020-11-27] MEDS ORDERED: HYDROmorphone 0.5 MG/0.5 ML SYRINGE IVP STA (02:23)
--- NOTE | 2020-11-27 03:07 | XR ---
EXAMINATION TYPE: XR wrist limited LT DATE OF EXAM: 11/27/2020 COMPARISON: NONE HISTORY: Wrist pain TECHNIQUE: 2 views FINDINGS: There is slightly impacted fracture of the distal radius which appears old. I see no defini te acute fracture. The carpal bones are intact. There is vascular calcification. IMPRESSION: Old healed fracture of the distal radius. No acute fracture seen.
[2020-11-27 08:09] LABS: Glucose,Whole Blood 108 mg/dL (75-99)
[2020-11-27] MEDS ORDERED: MIDODRINE 5 MG TAB PO PRN (09:28)
[2020-11-27] MEDS ORDERED: HYDROcodone/APAP 7.5-325MG 1 EACH TAB PO PRN (09:38)
[2020-11-27] MEDS: HYDROmorphone 0.5 MG/0.5 ML SYRINGE IVP PRN (10:39)
--- NOTE | 2020-11-27 10:49 | P.HPIM ---
History of Present Illness H&P Date: 11/27/20 This is a 71-year-old patient of Dr. Jaramillo with a past medical history significant for COPD, diabetes mellitus, chronic kidney disease with dialysis, hypertension, BPH, sleep apnea. Patient has CAPD dialysis twice a day. 6 change was this morning. Patient presented to the emergency room last night due to a fall from a syncopal episode. Patient states that he was getting out of a car with the help of his daughter's boyfriend when he began to feel lightheaded and found himself lying on the ground. Patient states that he was only out for a few seconds. Patient is complaining of left wrist pain and left head pain. X-ray of left wrist shows a old healed fracture of the distal radius. No acute fracture seen. CT brain C-spine without contrast shows cerebral atrophy. No acute cranial abnormalities. Mild cervical spondylotic changes. No fracture. At this time patient is found resting comfortably in bed without any significant discomfort. Patient is complaining of left wrist pain. Especially when he is trying to reposition himself and apply pressure to the site. Patient utilizes Ultram at home. He was given Tylenol 3 here however that does not seem to be controlling his pain. We will increase his pain management and have or so in to see him. Patient has not had any further syncopal episodes. Patient remains afebrile, heart rate 77, respirations 16, blood pressure 147/86, 96% on room air. A BC 8.6, potassium 4.9, BUN 41 and creatinine 8.33. Review Of Systems: Constitutional: No fever, no chills, no night sweats. No weight change. No weakness, fatigue or lethargy. No daytime sleepiness. EENT: No headache. No blurred vision or double vision, no loss of vision. No loss of Hearing, no ringing in the ears, no dizziness. No nasal drainage or congestion. No epistaxis. No sore throat. Lungs: No shortness of breath, cough, no sputum production. No wheezing. Cardiovascular: No chest pain, no lower extremity edema. No palpitations. No paroxysmal nocturnal dyspnea. No orthopnea. No lightheadedness or dizziness. No syncopal episodes. Abdominal: no abdominal discomfort. No nausea, vomiting. no diarrhea. No constipation. No bloody or tarry stools. no loss of appetite. Genitourinary: No dysuria, increased frequency, urgency. No urinary retention. Musculoskeletal: No myalgias. No muscle weakness, no gait dysfunction, no frequent falls. No back pain. No neck pain. Integumentary: No wounds, no lesions. No rash or pruritus. No unusual bruising. No change in hair or nails. Neurologic: No aphasia. No facial droop. No change in mentation. No head injury. No headache. No paralysis. No paresthesia. Psychiatric: No depression. No anxiety. No mood swings. Endocrine: No abnormal blood sugars. No weight change. No excessive sweating or thirst. Social history: Patient was smoked from age 17 and quit in 2018 he has smoked one pack a day. Patient denies alcohol marijuana or illicit drug use. She lives with his . 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 Patient performs CAPD at home. Utilizes a walker. Family history: As a home with his . Children are healthy. Brother with history of COPD and liver disease. Physical Exam: General Appearance: This is a 75-year-old male. On resting comfortably in bed in no acute distress Alert, cooperative, no distress, appears stated age. Neck HEENT: Supple, no lymphadenopathy, no thyroid enlargement, no carotid bruits. Lungs: Clear to auscultation without crackles or wheezes no rhonchi, no deformity. Chest Wall: Chest wall normal expansion with deep inspiration no tenderness and no deformity was found on exam, no costochondral pain or discomfort. Heart: Regular rate and rhythm, S1, S2 normal, no murmur, rub or gallop. Back: Symmetric, no curvature, ROM normal, no CVA tenderness. Abdomen: Soft, non-tender, no rebound or rigidity, no hepatosplenomegaly. Extremities: Tender to palpation left wrist Extremities normal, atraumatic, no cyanosis or edema. Pulses: 2+ and symmetric. Skin: Skin color, texture, tugor normal, no rashes or lesions. Neurologic: Alert oriented x3 cranial nerves II through XII intact, no motor deficit, no abnormal balance or gait Assessment and plan: 1. Syncopal episode with fall. 2-D echo, carotid duplex, continuous monitoring. Consult cardiology. Consideration for Holter possible long-term cardiac monitoring. 2. Closed head injury related to trauma. CT of head and C-spine negative, continue with neuro checks for the next 24 hours. 3. Wrist injury and pain. No fracture noted. [place] 7.5 mg every 6 hours as needed for pain, Dilaudid 0.5 mg every 6 hours for breakthrough pain as needed. Consult orthopedics. 4. Chronic kidney disease was CAPD. Patient will continue with exchanges. Continue PhosLo, calcitriol, proamatine, nephrocaps, cinacalcer HCL 5. Diabetes mellitus. Patient to manage on an insulin pump 6. COPD. Either 10 mg by mouth at bedtime 7. Hypertension, stable. 8. BPH. Continue Flomax 0.4 mg 9. Sleep apnea with CPAP machine 10. Hyperlipidemia. Atorvastatin 40 mg 11. Depression. Continue Cymbalta, Seroquel 12. GI prophylaxis. Protonix 13. DVT prophylaxis. eliquis Code Status: Full code Discharge plan: A minimum of 2 nights day, possibly home Saturday Impression and plan of care have been directed as dictated by the signing physician. Katelyn Matute nurse practitioner acting as scribe for signing physician. Past Medical History Past Medical History: COPD, Diabetes Mellitus, Dialysis, Hypertension, Prostate Disorder, Renal Disease, Sleep Apnea/CPAP/BIPAP, Syncope Additional Past Medical History / Comment(s): BPH, uses CPAP, hemodialysis M-W- History of Any Multi-Drug Resistant Organisms: None Reported Past Surgical History: Cholecystectomy, Heart Catheterization, Hernia Repair, Orthopedic Surgery, Pacemaker Additional Past Surgical History / Comment(s): L fistula 05/29 AV fistula creation 05/29/2016 [facility], right shoulder proximal humerus repair Past Anesthesia/Blood Transfusion Reactions: No Reported Reaction Type of Cardiac Device: Permanent Pacemaker Device Placement Date:: 05/10/2018 Past Psychological History: Depression Smoking Status: Former smoker Past Alcohol Use History: Rare Past Drug Use History: None Reported - Past Family History Father History Unknown: Yes Mother History Unknown: Yes Brother(s) History Unknown: Yes Family Medical History: COPD, Liver Disease Daughter(s) History Unknown: Yes Medications and Allergies Home Medications Medication Instructions Recorded Confirmed Type Insulin Aspart (For Pump) [NovoLOG 0.01 unit SQ-PUMP CONTINUOUS 02/20/17 11/26/20 History (For Pump)] clonazePAM 0.5 mg PO DAILY 05/08/18 11/26/20 History Montelukast [Singulair] 10 mg PO HS tab 05/10/18 11/26/20 Rx Maureen-Chris 1 tab PO W/SUPPER 06/17/18 11/26/20 History Atorvastatin Calcium [Lipitor] 40 mg PO W/SUPPER 02/16/20 11/26/20 History Donepezil [Aricept] 5 mg PO HS 02/16/20 11/26/20 History Omalizumab [Xolair] 150 mg SQ Q30D 02/16/20 11/26/20 History QUEtiapine FUMARATE [SEROquel] 25 mg PO HS 02/16/20 11/26/20 History Tamsulosin [Flomax] 0.4 mg PO DAILY@1200 02/16/20 11/26/20 History Apixaban [Eliquis] 2.5 mg PO BID@1200,2100 02/19/20 11/26/20 History Latanoprost/Pf [Latanoprost 0.005% 1 drop BOTH EYES HS 02/19/20 11/26/20 History Eye Drop] Nicotine Polacrilex [Nicorette] 4 mg BUCCAL Q2H PRN 02/19/20 11/26/20 History Calcium Acetate [PhosLo] 1,334 mg PO BID-W/MEALS 11/26/20 11/26/20 History Calcium Acetate [PhosLo] 667 mg PO HS 11/26/20 11/26/20 History Cinacalcet HCl [Sensipar] 90 mg PO MOWEFR 11/26/20 11/26/20 History DULoxetine HCL [Cymbalta] 60 mg PO DAILY 11/26/20 11/26/20 History Insulin NPH Human Isophane 6 unit SQ HS 11/26/20 11/26/20 History [Novolin N Flexpen] Midodrine HCl 5 mg PO BID PRN 11/26/20 11/26/20 History Sodium Bicarbonate (Unknown 1 tab PO HS 11/26/20 11/26/20 History Strength) calcitrioL [Calcitriol] 1 mcg PO MO 11/26/20 11/26/20 History clonazePAM [KlonoPIN] 1 mg PO HS 11/26/20 11/26/20 History Allergies Allergy/AdvReac Type Severity Reaction Status Date / Time Sulfa (Sulfonamide Allergy Rash/Hives Verified 11/26/20 20:22 Antibiotics) levofloxacin [From Levaquin] AdvReac Rash/Hives Verified 11/26/20 20:22 Physical Exam Vitals: Vital Signs Temp Pulse Resp BP Pulse Ox 11/27/20 05:45 97.8 F 77 16 147/86 96 11/27/20 03:13 72 18 98 11/27/20 03:00 74 18 97 11/27/20 02:00 78 18 98 11/27/20 01:10 76 18 157/92 98 11/27/20 00:20 97.6 F 92 18 94/55 97 11/26/20 22:43 87 18 126/72 97 11/26/20 20:24 81 18 109/65 98 11/26/20 19:01 98 F 87 18 129/76 99 Intake and Output 11/26/20 11/27/20 11/27/20 22:59 06:59 14:59 Other: Weight 115.394 kg Results CBC & Chem 7: 11/26/20 19:28 11/26/20 19:28 Labs: Abnormal Lab Results - Last 24 Hours (Table) 11/26/20 11/26/20 11/26/20 Range/Units 19:28 19:28 19:28 RBC 3.46 L (4.30-5.90) m/uL Hgb 11.9 L (13.0-17.5) gm/dL Hct 35.1 L (39.0-53.0) % MCV 101.5 H (80.0-100.0) fL Lymphocytes # 0.9 L (1.0-4.8) k/uL Sodium 136 L (137-145) mmol/L Chloride 97 L (98-107) mmol/L BUN 41 H (9-20) mg/dL Creatinine 8.33 H* (0.66-1.25) mg/dL POC Glucose (mg/dL) (75-99) mg/dL Calcium 7.8 L (8.4-10.2) mg/dL Ionized Calcium Nya 3.9 L (4.5-5.3) mg/dL Troponin I 0.063 H* (0.000-0.034) ng/mL 11/26/20 11/27/20 Range/Units 23:13 08:08 RBC (4.30-5.90) m/uL Hgb (13.0-17.5) gm/dL Hct (39.0-53.0) % MCV (80.0-100.0) fL Lymphocytes # (1.0-4.8) k/uL Sodium (137-145) mmol/L Chloride (98-107) mmol/L BUN (9-20) mg/dL Creatinine (0.66-1.25) mg/dL POC Glucose (mg/dL) 108 H (75-99) mg/dL Calcium (8.4-10.2) mg/dL Ionized Calcium Nya (4.5-5.3) mg/dL Troponin I 0.066 H* (0.000-0.034) ng/mL
--- NOTE | 2020-11-27 11:12 | US ---
EXAMINATION TYPE: US carotid duplex BILAT DATE OF EXAM: 11/27/2020 COMPARISON: 03/16/2010 CLINICAL HISTORY: syncope. Patient states he got dizzy and fell. On dialysis. Peroneal HTN per rachel ent EXAM MEASUREMENTS: RIGHT: Peak Systolic Velocity (PSV) cm/sec ----- Right CCA: 47.9 ----- Right ICA: 65.8 ----- Right ECA: 59.2 ICA/CCA ratio: 1.4 RIGHT: End Diastole cm/sec ----- Right CCA: 6.0 ----- Right ICA: 14.2 ----- Right ECA: 0.0 LEFT: Peak Systolic Velocity (PSV) cm/sec ----- Left CCA: 45.0 ----- Left ICA: 74.9 ----- Left ECA: 71.3 ICA/CCA ratio: 1.7 LEFT: End Diastole cm/sec ----- Left CCA: 6.5 ----- Left ICA: 14.1 ----- Left ECA: 7.6 VERTEBRALS (direction of flow): Right Vertebral: Antegrade Left Vertebral: Antegrade Rhythm: Normal Plaque seen in bilateral CCA and bulbs. No elevated velocities or significant stenosis. Wall thicken ing visualized. IMPRESSION: Mild carotid bifurcation plaque but no significant stenosis. No significant interval neris nge since the prior study dated 03/16/2010 Criteria for Assigning % of Stenosis / Diameter reduction (Estimation based on the indirect measurements of the internal carotid artery velocities (ICA PSV). 1. Normal (no stenosis)=ICA PSV < 125 cm/s: ratio < 2.0: ICA EDV<40 cm/s. 2. Less than 50% stenosis=ICA PSV < 125 cm/s: ratio < 2.0: ICA EDV<40 cm/s. 3. 50 to 69% stenosis=ICA PSV of 125 to 230 cm/s: ration 2.0 ? 4.0: ICA EDV 40-100 cm/s. 4. Greater than 70% stenosis to near occlusion= ICA PSV > 230 cm/s: ratio > 4.0: ICA EDV > 100 cm/s. 5. Near occlusion= ICA PSV velocities may be low or undetectable: variable ratio and ICA EDV. 6. Total occlusion=unable to detect flow.
--- NOTE | 2020-11-27 12:30 | P.CRDCN ---
History of Present Illness Consult date: 11/27/20 History of present illness: HISTORY OF PRESENT ILLNESS: This is a 75-year-old male with a past medical history significant for with end- stage renal disease on peritoneal dialysis, sick sinus syndrome with permanent pacemaker insertion, paroxysmal atrial fibrillation on long-term anticoagulation with Eliquis, hypertension, hyperlipidemia, and COPD. Patient follows in the office with Dr. Whitfield. We have been asked to see the patient in consultation for syncope. Patient examined at the bedside in the emergency room. Patient states he was walking into [employer] yesterday. He states his daughter's boyfriend was helping him walk into the restaurant. Patient reports feeling slightly dizzy at the time. Patient and states he fell to the ground. He denies losing consciousness. Patient reports he tried to brace his fall with his left arm. Patient reports having a similar episode approximately one month ago. Patient states he did not lose consciousness at that time either. Patient states he feels well this morning with no complaints. Patient states he checks his blood pressure on a daily basis. He states his systolic blood pressure usually runs in the 130s. He reports taking his blood pressure yesterday and noticed his systolic blood pressure was 105. Pacemaker was interrogated with no acute events noted. Patient believes he had a carotid Doppler performed recently at the office, however the last carotid Doppler performed was in 2013. Patient did have an echocardiogram completed in April 2020 revealing ejection fraction 55%, mild mitral regurgitation and mild tricuspid regurgitation mild aortic stenosis. EKG reveals atrial fibrillation versus accelerated junctional rhythm Chest xray negative for acute cardiopulmonary disease. Laboratory data: CBC 8.6. Hemoglobin 11.9. Platelet count 268. Sodium 136. Potassium 4.9. BUN 41. Creatinine 8.33. Troponin 0.066. 0.063. Current home cardiac medications include Eliquis 2.5 mg twice a day and atorvastatin 40 mg daily REVIEW OF SYSTEMS: At the time of my exam: CONSTITUTIONAL: Denies fever or chills. HEENT: Denies blurred vision, vision changes, or eye pain. Denies hemoptysis CARDIOVASCULAR: Denies chest pain. Denies orthopnea. Denies PND. Denies palpitations RESPIRATORY: Denies shortness of breath. GASTROINTESTINAL: Denies abdominal pain. Denies nausea or vomiting. HEMATOLOGIC: Denies bleeding disorders. GENITOURINARY: Denies any blood in urine. SKIN: Denies pruitis. Denies rash. PHYSICAL EXAM: VITAL SIGNS: Reviewed. GENERAL: Well-developed in no acute distress. HEENT: Head is normocephalic. Pupils are equal, round. Sclerae anicteric. Mucous membranes of the mouth are moist. Neck supple. No JVD or thyromegaly LUNGS: Respirations even and unlabored. Lungs essentially clear to auscultation bilaterally. HEART: Regular rate and rhythm. S1 and S2 heard. Systolic murmur noted. ABDOMEN: Soft. Nondistended. Nontender. EXTREMITIES: Normal range of motion. No clubbing or cyanosis. Peripheral pulses intact. No lower extremity edema NEUROLOGIC: Awake and alert. Oriented x 3. ASSESSMENT: Status post fall from standing with associated dizziness, no LOC Dysautonomia Chronic kidney disease on peritoneal dialysis History of sick sinus syndrome with pacemaker implantation Paroxysmal atrial fibrillation, on anticoagulation with Eliquis Hypertension Hyperlipidemia PLAN: Obtain 2D echo to assess cardiac structure and function Check orthostatic blood pressures Pacemaker interrogated and report unremarkable Continue telemetry monitoring Begin Midodrine 5 mg daily with meals Carotid Doppler ordered. Await results Further recommendations pending patient's course Nurse practitioner note has been reviewed by physician. Signing provider agrees with the documented findings, assessment, and plan of care. Past Medical History Past Medical History: COPD, Diabetes Mellitus, Dialysis, Hypertension, Prostate Disorder, Renal Disease, Sleep Apnea/CPAP/BIPAP, Syncope Additional Past Medical History / Comment(s): BPH, uses CPAP, hemodialysis M-W-F History of Any Multi-Drug Resistant Organisms: None Reported Past Surgical History: Cholecystectomy, Heart Catheterization, Hernia Repair, Orthopedic Surgery, Pacemaker Additional Past Surgical History / Comment(s): L fistula 05/29 AV fistula creation 05/29/2016 [facility], right shoulder proximal humerus re pair Past Anesthesia/Blood Transfusion Reactions: No Reported Reaction Type of Cardiac Device: Permanent Pacemaker Device Placement Date:: 05/10/2018 Past Psychological History: Depression Smoking Status: Former smoker Past Alcohol Use History: Rare Past Drug Use History: None Reported - Past Family History Father History Unknown: Yes Mother History Unknown: Yes Brother(s) History Unknown: Yes Family Medical History: COPD, Liver Disease Daughter(s) History Unknown: Yes Medications and Allergies Home Medications Medication Instructions Recorded Confirmed Type Insulin Aspart (For Pump) [NovoLOG 0.01 unit SQ-PUMP CONTINUOUS 02/20/17 11/26/20 History (For Pump)] clonazePAM 0.5 mg PO DAILY 05/08/18 11/26/20 History Montelukast [Singulair] 10 mg PO HS tab 05/10/18 11/26/20 Rx Maureen-Chris 1 tab PO W/SUPPER 06/17/18 11/26/20 History Atorvastatin Calcium [Lipitor] 40 mg PO W/SUPPER 02/16/20 11/26/20 History Donepezil [Aricept] 5 mg PO HS 02/16/20 11/26/20 History Omalizumab [Xolair] 150 mg SQ Q30D 02/16/20 11/26/20 History QUEtiapine FUMARATE [SEROquel] 25 mg PO HS 02/16/20 11/26/20 History Tamsulosin [Flomax] 0.4 mg PO DAILY@1200 02/16/20 11/26/20 History Apixaban [Eliquis] 2.5 mg PO BID@1200,2100 02/19/20 11/26/20 History Latanoprost/Pf [Latanoprost 0.005% 1 drop BOTH EYES HS 02/19/20 11/26/20 History Eye Drop] Nicotine Polacrilex [Nicorette] 4 mg BUCCAL Q2H PRN 02/19/20 11/26/20 History Calcium Acetate [PhosLo] 1,334 mg PO BID-W/MEALS 11/26/20 11/26/20 History Calcium Acetate [PhosLo] 667 mg PO HS 11/26/20 11/26/20 History Cinacalcet HCl [Sensipar] 90 mg PO MOWEFR 11/26/20 11/26/20 History DULoxetine HCL [Cymbalta] 60 mg PO DAILY 11/26/20 11/26/20 History Insulin NPH Human Isophane 6 unit SQ HS 11/26/20 11/26/20 History [Novolin N Flexpen] Midodrine HCl 5 mg PO BID PRN 11/26/20 11/26/20 History Sodium Bicarbonate (Unknown 1 tab PO HS 11/26/20 11/26/20 History Strength) calcitrioL [Calcitriol] 1 mcg PO MO 11/26/20 11/26/20 History clonazePAM [KlonoPIN] 1 mg PO HS 11/26/20 11/26/20 History Allergies Allergy/AdvReac Type Severity Reaction Status Date / Time Sulfa (Sulfonamide Allergy Rash/Hives Verified 11/26/20 20:22 Antibiotics) levofloxacin [From Levaquin] AdvReac Rash/Hives Verified 11/26/20 20:22 Physical Exam Vitals: Vital Signs Temp Pulse Resp BP Pulse Ox 11/27/20 05:45 97.8 F 77 16 147/86 96 11/27/20 03:13 72 18 98 11/27/20 03:00 74 18 97 11/27/20 02:00 78 18 98 11/27/20 01:10 76 18 157/92 98 11/27/20 00:20 97.6 F 92 18 94/55 97 11/26/20 22:43 87 18 126/72 97 11/26/20 20:24 81 18 109/65 98 11/26/20 19:01 98 F 87 18 129/76 99 Intake and Output 11/26/20 11/27/20 11/27/20 22:59 06:59 14:59 Other: Weight 115.394 kg Results 11/26/20 19:28 11/26/20 19:28 Cardiac Enzymes 11/26/20 11/26/20 Range/Units 19:28 23:13 Troponin I 0.063 H* 0.066 H* (0.000-0.034) ng/mL Coagulation 11/26/20 Range/Units 19:28 PT 11.6 (9.0-12.0) sec APTT 25.8 (22.0-30.0) sec CBC 11/26/20 Range/Units 19:28 WBC 8.6 (3.8-10.6) k/uL RBC 3.46 L (4.30-5.90) m/uL Hgb 11.9 L (13.0-17.5) gm/dL Hct 35.1 L (39.0-53.0) % Plt Count 268 (150-450) k/uL Comprehensive Metabolic Panel 11/26/20 Range/Units 19:28 Sodium 136 L (137-145) mmol/L Potassium 4.9 (3.5-5.1) mmol/L Chloride 97 L (98-107) mmol/L Carbon Dioxide 26 (22-30) mmol/L BUN 41 H (9-20) mg/dL Creatinine 8.33 H* (0.66-1.25) mg/dL Glucose 98 (74-99) mg/dL Calcium 7.8 L (8.4-10.2) mg/dL Current Medications Generic Name Dose Route Start Last Admin Trade Name Freq PRN Reason Stop Dose Admin Acetaminophen/Codeine Phosphate 1 each 11/26/20 23:32 11/26/20 23:47 Acetaminophen-Codeine 300-30mg Tab PO 1 each Q6HR PRN Administration Pain Hydrocodone Bitart/Acetaminophen 1 each 11/27/20 09:38 Hydrocodone/Apap 7.5-325mg 1 Each Tab PO Q6H PRN Pain Apixaban 2.5 mg 11/27/20 12:00 Apixaban 2.5 Mg Tablet PO BID@1200,2100 [facility] Protocol Atorvastatin Calcium 40 mg 11/27/20 17:30 Atorvastatin 40 Mg Tab PO W/SUPPER CARRILLO Calcitriol 1 mcg 11/28/20 09:00 Calcitriol 0.25 Mcg Cap PO MO CARRILLO Calcium Acetate 667 mg 11/27/20 21:00 Calcium Acetate 667 Mg Tab PO HS [facility] Calcium Acetate 1,334 mg 11/27/20 17:30 Calcium Acetate 667 Mg Tab PO BID-W/MEALS CAR[facility]LLO Clonazepam 0.5 mg 11/28/20 09:00 Clonazepam 0.5 Mg Tab PO DAILY [facility] Clonazepam 1 mg 11/27/20 21:00 Clonazepam 1 Mg Tab PO HS [facility] Donepezil HCl 5 mg 11/27/20 21:00 Donepezil 5 Mg Tab PO HS [facility] Duloxetine HCl 60 mg 11/28/20 09:00 Duloxetine Hcl 60 Mg Capsule.Dr PO DAILY [facility] Hydromorphone HCl 0.5 mg 11/27/20 09:38 Hydromorphone 0.5 Mg/0.5 Ml Syringe IVP Q6HR PRN Pain Sodium Chloride 1,000 mls @ 20 mls/hr 11/26/20 20:45 Saline 0.9% IV .Q24H [facility] Peritoneal Dialysis Solution 37.5 g in 2,500 mls @ 0 mls/hr 11/27/20 00:00 11/27/20 06:08 Delflex With 1.5% Dextrose (2,500 Ml) INTRAPERIT 2,500 mls/hr Q6HR [facility] Administration Protocol As Directed Midodrine 5 mg 11/27/20 09:28 Midodrine 5 Mg Tab PO BID PRN bp reading under 120/70 Montelukast Sodium 10 mg 11/27/20 21:00 Montelukast 10 Mg Tab PO HS [facility] Multivit/Ca Carb/B Cmplx/FA/Prenat 1 each 11/27/20 17:30 Folic Acid-Vit B Complex-Vit C 1 Cap PO W/SUPPER [facility] Naloxone HCl 0.2 mg 11/26/20 20:35 Naloxone 0.4 Mg/Ml 1 Ml Vial IV Q2M PRN Opioid Reversal Nicotine 1 patch 11/26/20 23:45 11/26/20 23:47 Nicotine 14mg/24hr Patch TRANSDERM 1 patch DAILY [facility] Administration Non-Formulary Medication 90 mg 11/28/20 09:00 Cinacalcet Hcl [Sensipar] PO MOWEFR [facility] Non-Formulary Medication 0.01 unit 11/27/20 09:30 Insulin Aspart (For Pump) [Novolog (For Pump)] SQ CONTINUOUS [facility] Non-Formulary Medication 1 drop 11/27/20 21:00 Latanoprost/Pf [Latanoprost 0.005% Eye Drop] BOTH EYES HS [facility] Pantoprazole Sodium 40 mg 11/28/20 07:30 Pantoprazole 40 Mg Tablet PO AC-BRKFST [facility] Quetiapine Fumarate 25 mg 11/27/20 21:00 Quetiapine 25 Mg Tab PO HS [facility] Tamsulosin HCl 0.4 mg 11/27/20 12:00 Tamsulosin 0.4 Mg Cap.Er.24h PO DAILY@1200 [facility] Intake and Output 11/26/20 11/27/20 11/27/20 22:59 06:59 14:59 Other: Weight 115.394 kg 11/26/20 19:28 11/26/20 19:28
[2020-11-27] MEDS: NON FORMULARY DRUG (Insulin Aspart (For Pump) [Novolog (For Pump)] 100 UNIT/ML Vial) SQ SCH (13:43)
[2020-11-27] MEDS: MIDODRINE 5 MG TAB PO SCH ×2 (13:49→16:59)
[2020-11-27] MEDS: TAMSULOSIN 0.4 MG CAP.ER.24H PO SCH (13:49)
[2020-11-27] MEDS: APIXABAN 2.5 MG TABLET PO SCH ×2 (13:49→21:45)
--- NOTE | 2020-11-27 13:49 | CONS ---
CONSULTATION REASON FOR CONSULTATION: End-stage renal disease. HISTORY OF PRESENT ILLNESS: Patient is a 75-year-old male with end-stage renal disease, on peritoneal dialysis, admitted to the hospital with history of fall. The patient states that he was walking and somebody was helping him as they were coming out of a restaurant and he states that he passed out. He does not remember having had chest pains or any shortness of breath or palpitations. It was for a very short time, few seconds. The patient did hit the front of his head and the right arm. He denies having had significantly low blood pressures at home. There was a systolic pressure of 94 mmHg noted yesterday. No complaints of abdominal pain. No fever or chills. The patient has been using mostly 1.5% solutions for his peritoneal dialysis. PAST MEDICAL HISTORY: End-stage renal disease, CKD mineral bone disorder, anemia of chronic disease, COPD, BPH, hypertension, type 2 diabetes. PAST SURGICAL HISTORY: Cholecystectomy, cardiac catheterization, left arm AV fistula, orthopedic surgery, pacemaker placement, right shoulder humerus repair and permanent pacemaker placement. SOCIAL HISTORY: Patient is a former smoker. No history of drug abuse or alcohol abuse. MEDICATIONS: Medications prior to admission included insulin, Lipitor, Maureen-Chris, Aricept, Xolair, Flomax, Eliquis, PhosLo, Cymbalta, Sensipar, midodrine, calcitriol, Klonopin, Singulair. ALLERGIES: Include SULFA, LEVAQUIN. Both cause rash and hives. REVIEW OF SYSTEMS: As per HPI. Other systems negative. EXAMINATION: Patient is comfortable, awake, alert, oriented x3, not in any acute distress. Blood pressure 147/86, heart rate 77 per minute, he is afebrile. Examination of the heart S1, S2. Examination of the lungs, bilateral breath sounds are heard. Abdomen: Soft nontender. Exam of lower extremities shows no evidence of edema. CAN HANDLER exam grossly intact. LABS: Show sodium of 136, potassium 4.9, BUN 41, creatinine 8.3. Troponin 0.06 hemoglobin 11.9 g/dL. ASSESSMENT: 1. End-stage renal disease, on peritoneal dialysis. Continue with current exchanges of 1.5% solutions q.6 hours. 2. Syncope, possibly related to hypotension. Blood pressure had been low yesterday, currently improved with systolic blood pressure around 147 mmHg systolic today. 3. History of chronic obstructive pulmonary disease. 4. Chronic kidney disease mineral bone disorder. 5. Closed head injury. No abnormalities noted on CT. 6. Wrist injury with no fracture. 7. Type 2 diabetes, maintained on insulin. PLAN: Continue with current PD exchanges. Encourage increased oral intake. Avoid hypotension. MMODL / IJN: [id number] /
[2020-11-27] MEDS: NICOTINE 14MG/24HR PATCH TRANSDERM SCH (13:50)
[2020-11-27 16:40] LABS: Glucose,Whole Blood 231 mg/dL (75-99)
[2020-11-27] MEDS: CALCIUM ACETATE 667 MG TAB PO SCH (16:58)
[2020-11-27] MEDS ORDERED: FOLIC ACID-VIT B COMPLEX-VIT C 1 CAP PO SCH (17:30)
[2020-11-27] MEDS ORDERED: ATORVASTATIN 40 MG TAB PO SCH (17:30)
[2020-11-27 20:03] LABS: Glucose,Whole Blood 175 mg/dL (75-99)
[2020-11-27] MEDS: Acetaminophen-Codeine 300-30mg TAB PO PRN (20:17)
[2020-11-27] MEDS: QUEtiapine 25 MG TAB PO SCH (20:17)
[2020-11-27] MEDS ORDERED: INSPUCOR MISCELLANE PRN (20:23)
[2020-11-27] MEDS ORDERED: INSULIN ASPART (NovoLOG) 100 UNIT/ML VIAL SQ PRN (20:23)
[2020-11-27] MEDS ORDERED: DONEPEZIL 5 MG TAB PO SCH (21:00)
[2020-11-27] MEDS ORDERED: CALCIUM ACETATE 667 MG TAB PO SCH (21:00)
[2020-11-27] MEDS ORDERED: clonazePAM 1 MG TAB PO SCH (21:00)
[2020-11-27] MEDS ORDERED: NON FORMULARY DRUG (Latanoprost/Pf [Latanoprost 0.005% Eye Drop] 7.5 ML Drops) BOTH EYES SCH (21:00)
[2020-11-27] MEDS ORDERED: MONTELUKAST 10 MG TAB PO SCH (21:00)
[2020-11-27] MEDS ORDERED: SODIUM BICARBONATE PO SCH (21:00)
[2020-11-28] MEDS: DIALYSIS (PERIT 1.5%) 2,500 ML 37.5 G/2,500 ML BAG INTRAPERIT SCH ×2 (05:47→11:47)
[2020-11-28] MEDS: SODIUM CHLORIDE 0.9% 1,000 ML IV SCH ×3 (06:13→07:39)
[2020-11-28 06:32] LABS: Glucose,Whole Blood 122 mg/dL (75-99)
[2020-11-28] MEDS: MIDODRINE 5 MG TAB PO SCH ×2 (06:36→11:44)
[2020-11-28] MEDS: CALCIUM ACETATE 667 MG TAB PO SCH (06:36)
[2020-11-28] MEDS ORDERED: PANTOPRAZOLE 40 MG TABLET PO SCH (07:30)
[2020-11-28 07:54] LABS: Albumin 3.1 g/dL (3.5-5.0); Calcium 7.7 mg/dL (8.4-10.2); Potassium 4.2 mmol/L (3.5-5.1); Total Bilirubin 0.9 mg/dL (0.2-1.3); Total Protein 5.7 g/dL (6.3-8.2)
[2020-11-28 07:58] LABS: Basophils # (A) 0.1 k/uL (0-0.2); Basophils % (A) 1 %; Eosinophils # (A) 0.6 k/uL (0-0.7); Eosinophils % (A) 7 %; HCT 33.6 % (39.0-53.0); HGB 11.5 gm/dL (13.0-17.5); Lymphocytes # (A) 0.9 k/uL (1.0-4.8); Lymphocytes % (A) 11 %; MCH 34.7 pg (25.0-35.0); MCHC 34.1 g/dL (31.0-37.0); MCV 101.6 fL (80.0-100.0); Macrocytosis Slight; Mean Platelet Volume 8.1; Monocytes # (A) 0.6 k/uL (0-1.0); Monocytes % (A) 7 %; Neutrophils # (A) 6.2 k/uL (1.3-7.7); Neutrophils % (A) 73 %; Platelet Count 210 k/uL (150-450); RDW 14.8 % (11.5-15.5); WBC 8.5 k/uL (3.8-10.6)
--- NOTE | 2020-11-28 08:40 | P.CNOR ---
History of Present Illness - [facility] Consult date: 11/28/20 Requesting physician: Dmitriy Pool Consult reason: fracture (Left wrist distal radius fracture.) History of present illness: The patient is a 75-year-old male with a history of COPD, diabetes mellitus, chronic kidney disease with dialysis, and hypertension that had a syncopal episode 2 days ago. He states he fell at [employer] and injured his left wrist. He states he also hit his head during the episode as well. He has pain and swelling in the wrist since the fall. He denies finger numbness. The patient states he fractured the same wrist a few years ago and the wrist healed up well. No other injuries are reported at this time. Orthopedics was consulted for further evaluation of his left wrist. Review of Systems Constitutional: Denies chills, Denies fever Cardiovascular: Denies chest pain, Denies shortness of breath Respiratory: Denies cough Gastrointestinal: Denies diarrhea, Denies nausea, Denies vomiting Musculoskeletal: left: wrist pain, wrist stiffness, wrist swelling Past Medical History Past Medical History: COPD, Diabetes Mellitus, Dialysis, Hypertension, Prostate Disorder, Renal Disease, Sleep Apnea/CPAP/BIPAP, Syncope Additional Past Medical History / Comment(s): BPH, uses CPAP, hemodialysis M-W-F History of Any Multi-Drug Resistant Organisms: None Reported Past Surgical History: Cholecystectomy, Heart Catheterization, Hernia Repair, Orthopedic Surgery, Pacemaker Additional Past Surgical History / Comment(s): L AV fistula placed on 05/29/2016 [facility], right shoulder proximal humerus repair Past Anesthesia/Blood Transfusion Reactions: No Reported Reaction Type of Cardiac Device: Permanent Pacemaker Device Placement Date:: 05/10/2018 Past Psychological History: No Psychological Hx Reported, Depression Smoking Status: Former smoker Past Alcohol Use History: Rare Additional Past Alcohol Use History / Comment(s): STARTED SMOKING AT AGE 17, QUIT 2019, SMOKED 1PPD Past Drug Use History: None Reported - Past Family History Father History Unknown: Yes Family Medical History: Diabetes Mellitus, Myocardial Infarction (CT) Additional Family Medical History / Comment(s): at 76 Mother History Unknown: Yes Family Medical History: Congestive Heart Failure (CHF), Diabetes Mellitus Additional Family Medical History / Comment(s): lived to be 97 Brother(s) History Unknown: Yes Family Medical History: COPD, Liver Disease Daughter(s) History Unknown: Yes Medications and Allergies Home Medications Medication Instructions Recorded Confirmed Type Insulin Aspart (For Pump) [NovoLOG 0.01 unit SQ-PUMP CONTINUOUS 02/20/17 11/26/20 History (For Pump)] clonazePAM 0.5 mg PO DAILY 05/08/18 11/26/20 History Montelukast [Singulair] 10 mg PO HS tab 05/10/18 11/26/20 Rx Maureen-Chris 1 tab PO W/SUPPER 06/17/18 11/26/20 History Atorvastatin Calcium [Lipitor] 40 mg PO W/SUPPER 02/16/20 11/26/20 History Donepezil [Aricept] 5 mg PO HS 02/16/20 11/26/20 History Omalizumab [Xolair] 150 mg SQ Q30D 02/16/20 11/26/20 History QUEtiapine FUMARATE [SEROquel] 25 mg PO HS 02/16/20 11/26/20 History Tamsulosin [Flomax] 0.4 mg PO DAILY@1200 02/16/20 11/26/20 History Apixaban [Eliquis] 2.5 mg PO BID@1200,2100 02/19/20 11/26/20 History Latanoprost/Pf [Latanoprost 0.005% 1 drop BOTH EYES HS 02/19/20 11/26/20 History Eye Drop] Nicotine Polacrilex [Nicorette] 4 mg BUCCAL Q2H PRN 02/19/20 11/26/20 History Calcium Acetate [PhosLo] 1,334 mg PO BID-W/MEALS 11/26/20 11/26/20 History Calcium Acetate [PhosLo] 667 mg PO HS 11/26/20 11/26/20 History Cinacalcet HCl [Sensipar] 90 mg PO MOWEFR 11/26/20 11/26/20 History DULoxetine HCL [Cymbalta] 60 mg PO DAILY 11/26/20 11/26/20 History Insulin NPH Human Isophane 6 unit SQ HS 11/26/20 11/26/20 History [Novolin N Flexpen] Sodium Bicarbonate (Unknown 1 tab PO HS 11/26/20 11/26/20 History Strength) calcitrioL [Calcitriol] 1 mcg PO MO 11/26/20 11/26/20 History clonazePAM [KlonoPIN] 1 mg PO HS 11/26/20 11/26/20 History Midodrine [ProAmatine] 5 mg PO AC-TID #90 tab 11/28/20 Rx Allergies Allergy/AdvReac Type Severity Reaction Status Date / Time Sulfa (Sulfonamide Allergy Rash/Hives Verified 11/26/20 20:22 Antibiotics) levofloxacin [From Levaquin] AdvReac Rash/Hives Verified 11/26/20 20:22 Physical Examination Mild to moderate swelling over the distal radius volarly and dorsally. Deformity is not appreciable, secondary to swelling. Significant tenderness over distal radius. Some tenderness over distal ulna. Able to move fingers in flexion and extension weakly, secondary to pain. Intact sensation over median, ulnar, and radial nerve distributions of hand. EPL, FPL, EDC, FDS, FDP, and intrinsics are functioning fairly well, but limited by pain. No significant elbow or shoulder tenderness. Results - Labs Labs: Abnormal Lab Results - Last 24 Hours (Table) 11/27/20 11/27/20 11/28/20 Range/Units 16:39 20:02 06:30 RBC (4.30-5.90) m/uL Hgb (13.0-17.5) gm/dL Hct (39.0-53.0) % MCV (80.0-100.0) fL Lymphocytes # (1.0-4.8) k/uL Sodium (137-145) mmol/L Chloride (98-107) mmol/L BUN (9-20) mg/dL Creatinine (0.66-1.25) mg/dL Glucose (74-99) mg/dL POC Glucose (mg/dL) 231 H 175 H 122 H (75-99) mg/dL Calcium (8.4-10.2) mg/dL AST (17-59) U/L ALT (4-49) U/L Alkaline Phosphatase (38-126) U/L Total Protein (6.3-8.2) g/dL Albumin (3.5-5.0) g/dL 11/28/20 11/28/20 Range/Units 07:15 07:15 RBC 3.30 L (4.30-5.90) m/uL Hgb 11.5 L (13.0-17.5) gm/dL Hct 33.6 L (39.0-53.0) % MCV 101.6 H (80.0-100.0) fL Lymphocytes # 0.9 L (1.0-4.8) k/uL Sodium 132 L (137-145) mmol/L Chloride 94 L (98-107) mmol/L BUN 47 H (9-20) mg/dL Creatinine 8.39 H* (0.66-1.25) mg/dL Glucose 112 H (74-99) mg/dL POC Glucose (mg/dL) (75-99) mg/dL Calcium 7.7 L (8.4-10.2) mg/dL AST 130 H (17-59) U/L ALT 147 H (4-49) U/L Alkaline Phosphatase 325 H (38-126) U/L Total Protein 5.7 L (6.3-8.2) g/dL Albumin 3.1 L (3.5-5.0) g/dL H & H 11/26/20 11/28/20 Range/Units 19:28 07:15 Hgb 11.9 L 11.5 L (13.0-17.5) gm/dL Hct 35.1 L 33.6 L (39.0-53.0) % Coagulation 11/26/20 Range/Units 19:28 INR 1.1 (<1.2) Result Diagrams: 11/28/20 07:15 11/28/20 07:15 - Diagnostic results Wrist/Hand x-ray: image reviewed (X-rays of the left wrist reveal a previously healed distal radius fracture. There is a possible fracture line to the left distal radius and the ulnar styloid. ) Assessment and Plan (1) Distal radius fracture, left Current Visit: Yes Status: Acute Code(s): S52.502A - UNSP FRACTURE OF THE LOWER END OF LEFT RADIUS, INIT SNOMED Code(s): 606878133 (2) Fracture of ulnar styloid Current Visit: Yes Status: Acute Code(s): S52.613A - DISP FX OF UNSP ULNA STYLOID PROCESS, INIT FOR CLOS FX SNOMED Code(s): 994339778 (3) Near syncope Current Visit: No Status: Acute Code(s): R55 - SYNCOPE AND COLLAPSE SNOMED Code(s): 147985525 Plan: The clinical and x-ray findings were discussed with the patient. The case was discussed with Dr. Ehsan Herbert. No surgical intervention is planned. A new well-padded splint was applied today. I encouraged finger motion. He will keep splint on until seen in the office. Elevate and ice left wrist. The patient is orthopedically stable for discharge today with follow up with Dr. Ehsan Herbert in 1 week.
[2020-11-28] MEDS: HYDROmorphone 0.5 MG/0.5 ML SYRINGE IVP PRN (08:46)
[2020-11-28] MEDS: NICOTINE 14MG/24HR PATCH TRANSDERM SCH (08:46)
[2020-11-28] MEDS: NON FORMULARY DRUG (Insulin Aspart (For Pump) [Novolog (For Pump)] 100 UNIT/ML Vial) SQ SCH (08:48)
[2020-11-28] MEDS ORDERED: clonazePAM 0.5 MG TAB PO SCH (09:00)
[2020-11-28] MEDS ORDERED: DULoxetine HCL 60 MG CAPSULE.DR PO SCH (09:00)
[2020-11-28] MEDS ORDERED: NON FORMULARY DRUG (Cinacalcet Hcl [Sensipar] 90 MG Tablet) PO SCH (09:00)
--- NOTE | 2020-11-28 11:15 | P.DS ---
Providers Date of admission: 11/26/20 20:35 Expected date of discharge: 11/28/20 Attending physician: Dmitriy Pool Consults: 11/26/20 20:36 Consult Physician Routine Consulting Provider: Nnamdi Whitfield Consult Reason/Comments: syncope Do you want consulting provider notified?: Yes Consult Physician Routine Consulting Provider: Ashly Michael Consult Reason/Comments: peritoneal dialysis Do you want consulting provider notified?: Yes 11/27/20 09:33 Consult Physician Routine Consulting Provider: Kenrick Melendez Consult Reason/Comments: fall left wrist injury Do you want consulting provider notified?: Yes Primary care physician: [place] Hospital Course: This is a 75-year-old patient of Dr. Wang'alonso with a past medical history significant for COPD, diabetes mellitus, chronic kidney disease with dialysis, hypertension, BPH, sleep apnea. Patient has CAPD dialysis twice a day. 6 change was this morning. Patient presented to the emergency room last night due to a fall from a syncopal episode. Patient states that he was getting out of a car with the help of his daughter's boyfriend when he began to feel lightheaded and found himself lying on the ground. Patient states that he was only out for a few seconds. Patient is complaining of left wrist pain and left head pain. X-ray of left wrist shows a old healed fracture of the distal radius. No acute fracture seen. CT brain C-spine without contrast shows cerebral atrophy. No acute cranial abnormalities. Mild cervical spondylotic changes. No fracture. At this time patient is found resting comfortably in bed without any significant discomfort. Patient is complaining of left wrist pain. Especially when he is trying to reposition himself and apply pressure to the site. Patient utilizes Ultram at home. He was given Tylenol 3 here however that does not seem to be controlling his pain. We will increase his pain management and have or so in to see him. Patient has not had any further syncopal episodes. Patient remains afebrile, heart rate 77, respirations 16, blood pressure 147/86, 96% on room air. A BC 8.6, potassium 4.9, BUN 41 and creatinine 8.33. 11/28: Patient has been seen by orthopedics for possible fracture at the distal radius and new splint has been applied to the left wrist, encourage finger motion and follow-up with Dr. Herbert in one week. Patient is also been seen by nephrology with plan to continue current PD exchanges and increase oral intake and avoid hypotension. Cardiology has ordered echocardiogram, orthostatics, pacemaker interrogation was unremarkable, midodrine 5 mg 3 times daily with meals as been started. Carotid ultrasound revealed mild carotid bifurcation plaque but no significant stenosis. Echocardiogram reveals EF of 50-55%, septal wall motion is delay consistent with prior cardiac surgery. LA moderately dilated 34-39 mL per M2, trace to mild mitral regurgitation, mild tricuspid regurgitation, mild pulmonary hypertension. RVSP 36.8 to millimeters of mercury. Patient has maintained his insulin pump. Blood sugars are running between 112 and 231. Repeat blood work reveals WBC 8.5, hemoglobin 11.5, platelet count 210. Sodium 132, potassium 4.2, chloride 94, CO2 25, BUN 47 creatinine 8.39. Total bilirubin 0.9, AST 130, ALT 147, alkaline phosphatase 325. He has been afebrile, heart rate 78, blood pressure 129/78 and pulse ox 97% on room air. The patient will be discharged home today in stable condition. Assessment and plan: 1. Syncopal episode with fall. 2. Closed head injury related to trauma. 3. Wrist injury with possible fracture. 4. Chronic kidney disease was CAPD. 5. Diabetes mellitus. 6. COPD. 7. Hypertension, stable. 8. BPH. 9. Sleep apnea with CPAP machine 10. Hyperlipidemia. 11. Recurrent Depression. Discharge plan Home Impression and plan of care have been directed as dictated by the signing physician. Jyoti Peraza nurse practitioner acting as scribe for signing physician. Patient Condition at Discharge: Good Plan - Discharge Summary Discharge Rx Participant: No New Discharge Prescriptions: New Midodrine [ProAmatine] 5 mg PO AC-TID #90 tab Continue Insulin Aspart (For Pump) [NovoLOG (For Pump)] 0.01 unit SQ-PUMP CONTINUOUS clonazePAM 0.5 mg PO DAILY Montelukast [Singulair] 10 mg PO HS tab Maureen-Chris 1 tab PO W/SUPPER Tamsulosin [Flomax] 0.4 mg PO DAILY@1200 Donepezil [Aricept] 5 mg PO HS QUEtiapine FUMARATE [SEROquel] 25 mg PO HS Omalizumab [Xolair] 150 mg SQ Q30D Atorvastatin Calcium [Lipitor] 40 mg PO W/SUPPER Apixaban [Eliquis] 2.5 mg PO BID@1200,2100 Latanoprost/Pf [Latanoprost 0.005% Eye Drop] 1 drop BOTH EYES HS Nicotine Polacrilex [Nicorette] 4 mg BUCCAL Q2H PRN PRN Reason: SMOKING CESSATION clonazePAM [KlonoPIN] 1 mg PO HS Calcium Acetate [PhosLo] 1,334 mg PO BID-W/MEALS Sodium Bicarbonate (Unknown Strength) 1 tab PO HS DULoxetine HCL [Cymbalta] 60 mg PO DAILY calcitrioL [Calcitriol] 1 mcg PO MO Calcium Acetate [PhosLo] 667 mg PO HS Cinacalcet HCl [Sensipar] 90 mg PO MOWEFR Insulin NPH Human Isophane [Novolin N Flexpen] 6 unit SQ HS Discontinued Midodrine HCl 5 mg PO BID PRN PRN Reason: bp reading under 120/70 Discharge Medication List Insulin Aspart (For Pump) [NovoLOG (For Pump)] 0.01 unit SQ-PUMP CONTINUOUS 02/20/17 [History] clonazePAM 0.5 mg PO DAILY 05/08/18 [History] Montelukast [Singulair] 10 mg PO HS tab 05/10/18 [Rx] Maureen-Chris 1 tab PO W/SUPPER 06/17/18 [History] Atorvastatin Calcium [Lipitor] 40 mg PO W/SUPPER 02/16/20 [History] Donepezil [Aricept] 5 mg PO HS 02/16/20 [History] Omalizumab [Xolair] 150 mg SQ Q30D 02/16/20 [History] QUEtiapine FUMARATE [SEROquel] 25 mg PO HS 02/16/20 [History] Tamsulosin [Flomax] 0.4 mg PO DAILY@1200 02/16/20 [History] Apixaban [Eliquis] 2.5 mg PO BID@1200,2100 02/19/20 [History] Latanoprost/Pf [Latanoprost 0.005% Eye Drop] 1 drop BOTH EYES HS 02/19/20 [History] Nicotine Polacrilex [Nicorette] 4 mg BUCCAL Q2H PRN 02/19/20 [History] Calcium Acetate [PhosLo] 1,334 mg PO BID-W/MEALS 11/26/20 [History] Calcium Acetate [PhosLo] 667 mg PO HS 11/26/20 [History] Cinacalcet HCl [Sensipar] 90 mg PO MOWEFR 11/26/20 [History] DULoxetine HCL [Cymbalta] 60 mg PO DAILY 11/26/20 [History] Insulin NPH Human Isophane [Novolin N Flexpen] 6 unit SQ HS 11/26/20 [History] Sodium Bicarbonate (Unknown Strength) 1 tab PO HS 11/26/20 [History] calcitrioL [Calcitriol] 1 mcg PO MO 11/26/20 [History] clonazePAM [KlonoPIN] 1 mg PO HS 11/26/20 [History] Midodrine [ProAmatine] 5 mg PO AC-TID #90 tab 11/28/20 [Rx] Follow up Appointment(s)/Referral(s): Nnamdi Whitfield MD [STAFF PHYSICIAN] - 1 Week (Office will call you with appointment date and time.) Kiel Wang DO [Primary Care Provider] - 1 Week (Office will call you with appointment date and time.) Ehsan Herbert DO [Doctor of Osteopathic Medicine] - 1 Week (Appointment scheduled for December 07 at 03:20 pm.) Patient Instructions/Handouts: Wrist Fracture in Adults (DC), Syncope (DC) Activity/Diet/Wound Care/Special Instructions: Keep splint clean and dry. Elevate and ice left wrist Continue finger motion. Follow up with Dr. Ehsan Herbert in 1 week. Discharge Disposition: HOME SELF-CARE
[2020-11-28 11:34] VITALS: TEMP 98
[2020-11-28 11:37] VITALS: PULSE 75
[2020-11-28] MEDS: Acetaminophen-Codeine 300-30mg TAB PO PRN (11:44)
[2020-11-28] MEDS: TAMSULOSIN 0.4 MG CAP.ER.24H PO SCH (11:44)
[2020-11-28] MEDS: APIXABAN 2.5 MG TABLET PO SCH (11:44)
[2020-11-28 11:49] LABS: Glucose,Whole Blood 192 mg/dL (75-99)
--- NOTE | 2020-11-28 12:15 | P.PN ---
Subjective This is a pleasant 75-year-old male past medical history significant for end-stage renal disease on peritoneal dialysis, sick sinus syndrome status post permanent pacemaker implantation, paroxysmal atrial fibrillation on long- term anticoagulation with Eliquis, hypertension, hypotension with dialysis, dyslipidemia and COPD. He follows the office with Dr. Whitfield. He is seen and examined resting comfortably lying flat in bed in no acute distress. He has had no further episodes of dizziness. Blood pressure remains above 150 systolic w ith position changes. Laboratory data reviewed, WBC 8.5, hemoglobin 11.5, platelets 210, sodium 132, potassium 4.2, creatinine 8.39. Echocardiogram has been obtained and will be reviewed. GENERAL: Well-appearing, well-nourished and in no acute distress. NECK: Supple without JVD or thyromegaly. LUNGS: Breath sounds clear to auscultation bilaterally. Respiration equal and unlabored. No wheezes, rales or rhonchi. HEART: Regular rate and rhythm with systoic ejection murmur at the base, no rubs or gallops. S1 and S2 heard. EXTREMITIES: Normal range of motion, no edema. No clubbing or cyanosis. Peripheral pulses intact. ASSESSMENT Near syncope Left radius and ulnar fracture Dysautonomia Chronic kidney disease on peritoneal dialysis Paroxysmal atrial fibrillation on Eliquis, currently maintaining sinus mechanism Hypertension Dyslipidemia Sick sinus syndrome status post permanent pacemaker implantation Aortic stenosis, mild PLAN Stable on current medical regimen. The importance of midodrine dosing and timing discussed. Follow up with Dr. Whitfield upon discharge. Nurse Practitioner note has been reviewed, I agree with a documented findings and plan of care. Patient was seen and examined. Objective - Vital Signs Vital signs: Vital Signs Temp 98.0 F 11/28/20 11:30 Pulse 72 11/28/20 11:30 Resp 18 11/28/20 11:30 BP 187/74 11/28/20 11:30 Pulse Ox 98 11/28/20 11:30 Intake & Output 11/27/20 11/28/20 11/28/20 18:59 06:59 18:59 Intake Total 120 650 240 Output Total 0 Balance 120 650 240 Weight 107.23 kg 108 kg Intake: Oral 120 650 240 Output: Urine 0 Other: Voiding Method Toilet Toilet # Voids 1 - Labs CBC & Chem 7: 11/28/20 07:15 11/28/20 07:15 Labs: Abnormal Lab Results - Last 24 Hours (Table) 11/27/20 11/27/20 11/28/20 Range/Units 16:39 20:02 06:30 RBC (4.30-5.90) m/uL Hgb (13.0-17.5) gm/dL Hct (39.0-53.0) % MCV (80.0-100.0) fL Lymphocytes # (1.0-4.8) k/uL Sodium (137-145) mmol/L Chloride (98-107) mmol/L BUN (9-20) mg/dL Creatinine (0.66-1.25) mg/dL Glucose (74-99) mg/dL POC Glucose (mg/dL) 231 H 175 H 122 H (75-99) mg/dL Calcium (8.4-10.2) mg/dL AST (17-59) U/L ALT (4-49) U/L Alkaline Phosphatase (38-126) U/L Total Protein (6.3-8.2) g/dL Albumin (3.5-5.0) g/dL 11/28/20 11/28/20 11/28/20 Range/Units 07:15 07:15 11:47 RBC 3.30 L (4.30-5.90) m/uL Hgb 11.5 L (13.0-17.5) gm/dL Hct 33.6 L (39.0-53.0) % MCV 101.6 H (80.0-100.0) fL Lymphocytes # 0.9 L (1.0-4.8) k/uL Sodium 132 L (137-145) mmol/L Chloride 94 L (98-107) mmol/L BUN 47 H (9-20) mg/dL Creatinine 8.39 H* (0.66-1.25) mg/dL Glucose 112 H (74-99) mg/dL POC Glucose (mg/dL) 192 H (75-99) mg/dL Calcium 7.7 L (8.4-10.2) mg/dL AST 130 H (17-59) U/L ALT 147 H (4-49) U/L Alkaline Phosphatase 325 H (38-126) U/L Total Protein 5.7 L (6.3-8.2) g/dL Albumin 3.1 L (3.5-5.0) g/dL
[2020-11-28 12:22] VITALS: BP 187/74; RESP 16
--- NOTE | 2020-11-28 14:00 | ECHOF ---
Referral Reason:syncope MEASUREMENTS -------- HEIGHT: 182.9 cm WEIGHT: 107.0 kg BP: 129/78 IVSd: 1.2 cm (0.6 - 1.1) LVIDd: 5.6 cm (3.9 - 5.3) LVPWd: 1.8 cm (0.6 - 1.1) IVSs: 1.9 cm LVIDs: 3.8 cm LVPWs: 2.3 cm LAESV Index (A-L): 49.64 ml/m Ao Diam: 3.4 cm (2.0 - 3.7) LA Diam: 4.8 cm (2.7 - 3.8) MV E Lázaro: 1.38 m/s MV DecT: 116 ms MV A Lázaro: 0.29 m/s MV E/A Ratio: 4.82 RAP: 5.00 mmHg RVSP: 36.82 mmHg FINDINGS -------- Pacerwire seen in RV and RA. This was a techncally difficult study with suboptimal views, , Lumason utilized for enhancement of im ages. The left ventricular size is normal. There is mild concentric left ventricular hypertrophy. Overa ll left ventricular systolic function is low-normal with, an EF between 50 - 55 %. Septal wall rosa on is delayed and consistent with prior cardiac surgery. The right ventricle is normal in size. LA is moderately dilated 34-39 ml/m2 The right atrial size is normal. There is moderate to severe aortic valve sclerosis. There is no evidence of aortic regurgitation. Mild mitral annular calcification present. There is trace to mild mitral regurgitation. Mild tricuspid regurgitation present. There is mild pulmonary hypertension. The right ventricular systolic pressure, as measured by Doppler, is 36.82mmHg. There is no pulmonic regurgitation present. The aortic root size is normal. There is no pericardial effusion. CONCLUSIONS -------- 1. The left ventricular size is normal. 2. Overall left ventricular systolic function is low-normal with, an EF between 50 - 55 %. 3. Septal wall motion is delayed and consistent with prior cardiac surgery. 4. The right ventricle is normal in size. 5. LA is moderately dilated 34-39 ml/m2 6. The right atrial size is normal. 7. Mild mitral annular calcification present. 8. There is trace to mild mitral regurgitation. 9. Mild tricuspid regurgitation present. 10. There is mild pulmonary hypertension. 11. The right ventricular systolic pressure, as measured by Doppler, is 36.82mmHg. 12. The aortic root size is normal. 13. There is no pericardial effusion. DIRECTOR OF GOLF: Opal Junior RDCS
== END 2020-11-28 12:27 | disposition home or self-care (01) ==
LOC: EC 19:00 → 6NMEDSUR 20:35 → 3SCARD 22:06
PROVIDERS: ADMIT Internal Medicine Geriatric Medicine; ATTEND Internal Medicine Geriatric Medicine
DX: R55 Syncope and collapse (principal); M25.532 Pain in left wrist; S09.90XA Unspecified injury of head, initial encounter; I12.0 Hypertensive chronic kidney disease with stage 5 chronic kidney disease or end stage renal disease; N18.6 End stage renal disease; E11.22 Type 2 diabetes mellitus with diabetic chronic kidney disease; I48.0 Paroxysmal atrial fibrillation; I49.5 Sick sinus syndrome; I08.3 Combined rheumatic disorders of mitral, aortic and tricuspid valves; J44.9 Chronic obstructive pulmonary disease, unspecified; G47.30 Sleep apnea, unspecified; N40.0 Benign prostatic hyperplasia without lower urinary tract symptoms; D63.8 Anemia in other chronic diseases classified elsewhere; E78.5 Hyperlipidemia, unspecified; Z99.2 Dependence on renal dialysis; F33.9 Major depressive disorder, recurrent, unspecified; N42.9 Disorder of prostate, unspecified; M89.9 Disorder of bone, unspecified; E83.9 Disorder of mineral metabolism, unspecified; G90.1 Familial dysautonomia [Riley-Day]; W19.XXXA Unspecified fall, initial encounter; Z20.822 Contact with and (suspected) exposure to COVID-19; Z79.4 Long term (current) use of insulin; Z96.41 Presence of insulin pump (external) (internal); Z79.01 Long term (current) use of anticoagulants; Z79.899 Other long term (current) drug therapy; Z88.1 Allergy status to other antibiotic agents; Z88.2 Allergy status to sulfonamides; Z90.49 Acquired absence of other specified parts of digestive tract; Z87.891 Personal history of nicotine dependence; Z87.81 Personal history of (healed) traumatic fracture; Z95.0 Presence of cardiac pacemaker; Z98.890 Other specified postprocedural states; Z82.5 Family history of asthma and other chronic lower respiratory diseases; Z83.79 Family history of other diseases of the digestive system; Z82.49 Family history of ischemic heart disease and other diseases of the circulatory system; Z83.3 Family history of diabetes mellitus
CPT/HCPCS: 96376 ×2; 96374; 99285; 36415; 93005; 97162; 97166; 80053; 80048; 82330; 83605; 83735; 84484; 85025 ×2; 85610; 85730; 87635; 72170; 73100; 71045; 93880; 72125; 70450; G0378 ×4; C8929; S4990 ×2; A4722 ×2; J1170 ×2; Q9950; 93306

== ENCOUNTER 2020-11-30 16:42 | Observation (INO) | payer MEDICARE ==
--- NOTE | 2020-11-30 17:57 | ED ---
Fall HPI - General Source: patient, family, EMS Mode of arrival: EMS - History of Present Illness MD Complaint: fall -: hour(s) (2) Fall From: chair When Fall Occurred: 1-3 hours UNPAID INTERN Fall Witnessed: yes, by family Place Fall Occurred: home Loss of Consciousness: none Prolonged Down Time?: no Symptoms Prior to Fall: none Location: head, chest Severity scale (1-10): 10 Quality: sharp Context: other (Fall from sitting) Associated Symptoms: denies <Lamberto Thomason - Last Filed: 11/30/20 23:12> <Samy Morrow - Last Filed: 12/05/20 06:27> - General Chief Complaint: Fall Stated Complaint: Fall Time Seen by Provider: 11/30/20 17:40 - History of Present Illness Initial Comments: 75-year-old male, alert and oriented 4 presents to the emergency room with his complaining of falling from sitting at home at 1600 today. Patient states that he was leaning over a table and the table collapsed causing him to fall onto the floor between the furniture and the wall. Patient hit his head and sustained an abrasion to the right side of his eye and cheek, a skin tear to his right forearm, abrasion to his right knee. Patient denies loss of consciousness, he does take eloquis. Patient states that he was seen for a fall that he had sustained on Saturday and has a fracture to his left wrist. Patient states that he did not have a chest x-ray at that time but does have pain in the left ribs that his pain will just touched lightly. He thinks he may have broken a rib on the Saturday fall. Patient also states that he's been having blood in his urine since fall. at bedside states that she didn't witness the fall but she heard it and he did not lose consciousness (Lamberto Thomason) - Related Data Home Medications Medication Instructions Recorded Confirmed Insulin Aspart (For Pump) [NovoLOG 0.01 unit SQ-PUMP CONTINUOUS 02/20/17 11/30/20 (For Pump)] Maureen-Chris 1 tab PO AC-SUPPER 06/17/18 11/30/20 Atorvastatin Calcium [Lipitor] 40 mg PO AC-SUPPER 02/16/20 11/30/20 Donepezil [Aricept] 5 mg PO HS 02/16/20 11/30/20 Omalizumab [Xolair] 150 mg SQ Q30D 02/16/20 11/30/20 QUEtiapine FUMARATE [SEROquel] 25 mg PO HS 02/16/20 11/30/20 Tamsulosin [Flomax] 0.4 mg PO DAILY@1200 02/16/20 11/30/20 Apixaban [Eliquis] 2.5 mg PO BID@1200,2100 02/19/20 11/30/20 Latanoprost/Pf [Latanoprost 0.005% 1 drop BOTH EYES HS 02/19/20 11/30/20 Eye Drop] Nicotine Polacrilex [Nicorette] 4 mg BUCCAL Q2H PRN 02/19/20 11/30/20 Calcium Acetate [PhosLo] 1,334 mg PO BID-W/MEALS 11/26/20 11/30/20 Calcium Acetate [PhosLo] 667 mg PO HS 11/26/20 11/30/20 Cinacalcet HCl [Sensipar] 90 mg PO MOWEFR 11/26/20 11/30/20 DULoxetine HCL [Cymbalta] 60 mg PO DAILY 11/26/20 11/30/20 Insulin NPH Human Isophane 6 unit SQ HS 11/26/20 11/30/20 [Novolin N Flexpen] Sodium Bicarbonate (Unknown 1 tab PO HS 11/26/20 11/30/20 Strength) calcitrioL [Calcitriol] 1 mcg PO MO 11/26/20 11/30/20 traZODone HCL 50 mg PO HS 11/30/20 11/30/20 Previous Rx's Medication Instructions Recorded Montelukast [Singulair] 10 mg PO HS tab 05/10/18 Midodrine [ProAmatine] 5 mg PO AC-TID #90 tab 11/28/20 Cefuroxime [Ceftin] 250 mg PO BID 7 Days #14 tab 12/02/20 Pantoprazole [Protonix] 40 mg PO AC-BRKFST tablet. 12/02/20 clonazePAM 0.5 mg PO DAILY #2 tab 12/02/20 clonazePAM [KlonoPIN] 1 mg PO HS #3 tab 12/02/20 traMADol HCl [Ultram] 50 mg PO TID #9 tab 12/02/20 Allergies Allergy/AdvReac Type Severity Reaction Status Date / Time Sulfa (Sulfonamide Allergy Rash/Hives Verified 11/30/20 18:44 Antibiotics) levofloxacin [From Levaquin] AdvReac Rash/Hives Verified 11/30/20 18:44 Review of Systems ROS Other: All systems not noted in ROS Statement are negative. <Lamberto Thomason - Last Filed: 11/30/20 23:12> ROS Other: All systems not noted in ROS Statement are negative. <Samy Morrow - Last Filed: 12/05/20 06:27> ROS Statement: Those systems with pertinent positive or pertinent negative responses have been documented in the HPI. Past Medical History Past Medical History: COPD, Diabetes Mellitus, Dialysis, Hypertension, Prostate Disorder, Renal Disease, Sleep Apnea/CPAP/BIPAP, Syncope Additional Past Medical History / Comment(s): BPH, uses CPAP, hemodialysis M-W-F History of Any Multi-Drug Resistant Organisms: None Reported Past Surgical History: Cholecystectomy, Heart Catheterization, Hernia Repair, Orthopedic Surgery, Pacemaker Additional Past Surgical History / Comment(s): L AV fistula placed on 05/29/2016 [facility], right shoulder proximal humerus repair Past Anesthesia/Blood Transfusion Reactions: No Reported Reaction Type of Cardiac Device: Permanent Pacemaker Device Placement Date:: 05/10/2018 Past Psychological History: No Psychological Hx Reported, Depression Smoking Status: Former smoker Past Alcohol Use History: Rare Past Drug Use History: None Reported - Past Family History Father History Unknown: Yes Family Medical History: Diabetes Mellitus, Myocardial Infarction ([place]) Additional Family Medical History / Comment(s): at 76 Mother History Unknown: Yes Family Medical History: Congestive Heart Failure (CHF), Diabetes Mellitus Additional Family Medical History / Comment(s): lived to be 97 Brother(s) History Unknown: Yes Family Medical History: COPD, Liver Disease Daughter(s) History Unknown: Yes <Lamberto Thomason - Last Filed: 11/30/20 23:12> General Exam Limitations: no limitations General appearance: alert, in no apparent distress Head exam: Present: normocephalic, other (Abrasion and bruising to the right cheek near his eye) Eye exam: Present: normal appearance, PERRL, EOMI, nystagmus (Horizontal right eye). Absent: scleral icterus, conjunctival injection, periorbital swelling Pupils: Present: normal accommodation, miosis ENT exam: Present: normal exam, normal oropharynx, mucous membranes moist, TM's normal bilaterally, normal external ear exam Neck exam: Present: normal inspection, full ROM. Absent: tenderness, meningismus, lymphadenopathy, thyromegaly Respiratory exam: Present: normal lung sounds bilaterally, chest wall tenderness (Left anterior chest wall). Absent: respiratory distress, wheezes, rales, rhonchi, stridor, decreased breath sounds Cardiovascular Exam: Present: regular rate, normal rhythm, normal heart sounds. Absent: systolic murmur, diastolic murmur, rubs, gallop, clicks GI/Abdominal exam: Present: soft, normal bowel sounds. Absent: distended, tenderness, guarding, rebound, rigid Extremities exam: Present: normal capillary refill. Absent: tenderness, joint swelling, calf tenderness Back exam: Present: normal inspection, full ROM. Absent: tenderness, CVA tenderness (R), CVA tenderness (L), muscle spasm, paraspinal tenderness, vertebral tenderness, rash noted Neurological exam: Present: alert, oriented X3, CN II-XII intact Psychiatric exam: Present: normal affect, normal mood Skin exam: Present: warm, dry, normal color, abrasion (Right knee), other (Skin tear noted to right distal forearm and wrist; bruising noted to the right side of face near eye). Absent: rash, cyanosis, diaphoretic, erythema, urticaria <Lamberto Thomason - Last Filed: 11/30/20 23:12> Course Vital Signs 11/30/20 11/30/20 16:45 22:00 Temperature 98 F Pulse Rate 86 88 Respiratory 18 16 Rate Blood Pressure 184/98 167/87 O2 Sat by Pulse 97 96 Oximetry Medical Decision Making - Lab Data Result diagrams: 11/30/20 17:54 11/30/20 17:54 <Lamberto Thomason - Last Filed: 11/30/20 23:12> - Lab Data Result diagrams: 12/03/20 07:04 12/03/20 07:04 <Samy Morrow - Last Filed: 12/05/20 06:27> - Medical Decision Making WBC count is 15.3 elevated from 8.5 and November 28. Hemoglobin and hematocrit is stable at 12 and 36 respectively. Creatinine is 8.67 which is consistent with previous levels and Potassium is 5.0 patient is on peritoneal dialysis. Glucose level is 156, calcium is 7.8, AST is 174 PLT is to 12, alk phos is 543 elevated from [address] of the brain and C-spine show no fracture and no intracranial bleed. Chest x-ray shows moderate interstitial edema. Case discussed with Dr. Michael from nephrology states it is located to IV contrast for a CT at that the patient will clear with peritoneal dialysis. CT the abdomen and pelvis with contrast shows decreased excretion of the kidneys consistent with his renal failure. There is no pericardial effusion. There is some air-fluid in the distal esophagus but the stomach is intact. Peritoneal catheter is in place. Liver shows no focal defects splint is intact. There is no pancreatic mass or adrenal mass. Kidneys are normal size there is no retroperitoneal edwina opathy. Bladder distention really smoothly. The abdominal fluid is consistent with peritoneal dialysis. There is an enlarged prostate measuring 6 x 4 cm. There is no free fluid in the pelvis. Patient will be admitted to Dr. Botello with urology and nephrology and medicine consult. Case discussed with Dr. Morrow (Lamberto Thomason) I saw this patient in conjunction with the physician players assistant. I performed independent history and physical exam. Agree with case management. (Samy Morrow) - Lab Data Lab Results 11/30/20 11/30/20 11/30/20 Range/Units 17:54 17:54 17:54 WBC 15.3 H (3.8-10.6) k/uL RBC 3.57 L (4.30-5.90) m/uL Hgb 12.0 L (13.0-17.5) gm/dL Hct 36.0 L (39.0-53.0) % MCV 100.7 H (80.0-100.0) fL MCH 33.5 (25.0-35.0) pg MCHC 33.3 (31.0-37.0) g/dL RDW 14.9 (11.5-15.5) % Plt Count 227 (150-450) k/uL MPV 8.6 Neutrophils % 90 % Lymphocytes % 3 % Monocytes % 5 % Eosinophils % 2 % Basophils % 1 % Neutrophils # 13.7 H (1.3-7.7) k/uL Lymphocytes # 0.4 L (1.0-4.8) k/uL Monocytes # 0.7 (0-1.0) k/uL Eosinophils # 0.2 (0-0.7) k/uL Basophils # 0.1 (0-0.2) k/uL Macrocytosis Slight PT 10.8 (9.0-12.0) sec INR 1.0 (<1.2) APTT 26.4 (22.0-30.0) sec Sodium (137-145) mmol/L Potassium (3.5-5.1) mmol/L Chloride (98-107) mmol/L Carbon Dioxide (22-30) mmol/L Anion Gap mmol/L BUN (9-20) mg/dL Creatinine (0.66-1.25) mg/dL Est GFR (CKD-EPI)AfAm (>60 ml/min/1.73 sqM) Est GFR (CKD-EPI)NonAf (>60 ml/min/1.73 sqM) Glucose (74-99) mg/dL POC Glucose (mg/dL) (75-99) mg/dL POC Glu Booking Manager ID Calcium (8.4-10.2) mg/dL Total Bilirubin (0.2-1.3) mg/dL AST (17-59) U/L ALT (4-49) U/L Alkaline Phosphatase (38-126) U/L Total Protein (6.3-8.2) g/dL Albumin (3.5-5.0) g/dL Urine Color Red Urine Appearance BLOODY (Clear) Urine RBC >182 H (0-5) /hpf Urine WBC >182 H (0-5) /hpf Urine Bacteria Moderate H (None) /hpf Hepatitis A IgM Ab (Non-Reactive) Hep Bs Antigen (Non-Reactive) Hep B Core IgM Ab (Non-Reactive) Hep C IgG Ab (Non-Reactive) 11/30/20 11/30/20 11/30/20 Range/Units 17:54 17:54 22:44 WBC (3.8-10.6) k/uL RBC (4.30-5.90) m/uL Hgb (13.0-17.5) gm/dL Hct (39.0-53.0) % MCV (80.0-100.0) fL MCH (25.0-35.0) pg MCHC (31.0-37.0) g/dL RDW (11.5-15.5) % Plt Count (150-450) k/uL MPV Neutrophils % % Lymphocytes % % Monocytes % % Eosinophils % % Basophils % % Neutrophils # (1.3-7.7) k/uL Lymphocytes # (1.0-4.8) k/uL Monocytes # (0-1.0) k/uL Eosinophils # (0-0.7) k/uL Basophils # (0-0.2) k/uL Macrocytosis PT (9.0-12.0) sec INR (<1.2) APTT (22.0-30.0) sec Sodium 133 L (137-145) mmol/L Potassium 5.0 (3.5-5.1) mmol/L Chloride 92 L (98-107) mmol/L Carbon Dioxide 26 (22-30) mmol/L Anion Gap 15 mmol/L BUN 48 H (9-20) mg/dL Creatinine 8.67 H* (0.66-1.25) mg/dL Est GFR (CKD-EPI)AfAm 6 (>60 ml/min/1.73 sqM) Est GFR (CKD-EPI)NonAf 5 (>60 ml/min/1.73 sqM) Glucose 156 H (74-99) mg/dL POC Glucose (mg/dL) 138 H (75-99) mg/dL POC Glu Booking Manager ID Silvia Torres Calcium 7.8 L (8.4-10.2) mg/dL Total Bilirubin 1.1 (0.2-1.3) mg/dL AST 174 H (17-59) U/L ALT 212 H (4-49) U/L Alkaline Phosphatase 543 H (38-126) U/L Total Protein 6.2 L (6.3-8.2) g/dL Albumin 3.6 (3.5-5.0) g/dL Urine Color Urine Appearance (Clear) Urine RBC (0-5) /hpf Urine WBC (0-5) /hpf Urine Bacteria (None) /hpf Hepatitis A IgM Ab Non-Reactive (Non-Reactive) Hep Bs Antigen Non-Reactive (Non-Reactive) Hep B Core IgM Ab Non-Reactive (Non-Reactive) Hep C IgG Ab Non-Reactive (Non-Reactive) Disposition Decision Date: 11/30/20 Decision Time: 23:13 <Lamberto Thomason - Last Filed: 11/30/20 23:12> <Samy Morrow - Last Filed: 12/05/20 06:27> Clinical Impression: Fall, Hematuria Disposition: ADMITTED IP TO THIS HOSP Condition: Stable
[2020-11-30 18:08] LABS: Basophils # (A) 0.1 k/uL (0-0.2); Basophils % (A) 1 %; Eosinophils # (A) 0.2 k/uL (0-0.7); Eosinophils % (A) 2 %; Lymphocytes # (A) 0.4 k/uL (1.0-4.8); Lymphocytes % (A) 3 %; MCH 33.5 pg (25.0-35.0); MCHC 33.3 g/dL (31.0-37.0); MCV 100.7 fL (80.0-100.0); Macrocytosis Slight; Mean Platelet Volume 8.6; Monocytes # (A) 0.7 k/uL (0-1.0); Monocytes % (A) 5 %; Neutrophils # (A) 13.7 k/uL (1.3-7.7); Neutrophils % (A) 90 %; Platelet Count 227 k/uL (150-450); RBC 3.57 m/uL (4.30-5.90); RDW 14.9 % (11.5-15.5); WBC 15.3 k/uL (3.8-10.6)
[2020-11-30 18:20] LABS: Partial Thromboplastin Time 26.4 sec (22.0-30.0); Prothrombin Time 10.8 sec (9.0-12.0)
[2020-11-30 18:34] LABS: Albumin 3.6 g/dL (3.5-5.0); Calcium 7.8 mg/dL (8.4-10.2); Total Bilirubin 1.1 mg/dL (0.2-1.3); Total Protein 6.2 g/dL (6.3-8.2)
[2020-11-30] MEDS ORDERED: MORPHINE SULFATE 4 MG/ML SYRINGE IVP STA ×2 (18:37→22:18)
--- NOTE | 2020-11-30 18:41 | CT ---
EXAMINATION TYPE: CT brain mandyine wo con DATE OF EXAM: 11/30/2020 COMPARISON: 11/26/2020. HISTORY: Fall. CT DLP: 1746.2 mGycm Automated exposure control for dose reduction was used. TECHNIQUE: CT scan of the head and cervical spine are performed without contrast. FINDINGS: There is no acute intracranial hemorrhage, mass effect, or midline shift identified. The ventricles and sulci are within normal limits in size. There is mild parenchymal volume loss and whi te matter disease. The globes are intact and the visualized sinuses are clear. Cervical spine is visualized in its entirety from C1 through upper thoracic levels and demonstrates s atisfactory alignment without evidence of acute fracture or dislocation. There is mild to moderate ce rvical spondylosis. Prevertebral soft tissue appears within normal limits. The C1-C2 articulation is unremarkable. IMPRESSION: 1. There is no acute fracture or dislocation evident in the cervical spine. 2. No acute intracranial hemorrhage, mass effect, or midline shift is seen.
--- NOTE | 2020-11-30 18:44 | XR ---
EXAMINATION TYPE: XR chest 2V DATE OF EXAM: 11/30/2020 COMPARISON: NONE HISTORY: Pain status post fall. TECHNIQUE: Frontal and lateral views of the chest are obtained. FINDINGS: There is [id number] interstitial edema with accompanying diffuse hazy opacity. No si gnificant pleural effusion, or pneumothorax seen. Right-sided pacemaker is seen. The cardiac silhouet te size is enlarged. The osseous structures are intact. IMPRESSION: Congestive changes.
[2020-11-30] MEDS ORDERED: NICOTINE 21MG/24HR PATCH TRANSDERM STA (20:05)
[2020-11-30 22:46] LABS: Glucose,Whole Blood 138 mg/dL (75-99)
--- NOTE | 2020-11-30 22:52 | CT ---
EXAMINATION TYPE: CT abdomen pelvis w con DATE OF EXAM: 11/30/2020 COMPARISON: HISTORY: Abdomen pain, and hematuria, which is new post fall today. Pt not following breathing instru ctions, moved during 1 min delay. Due to new onset hematuria, took 3 min delay through bladder to bet ter demostrate area. Pt on peritoneal dialysis. Lamberto Thomason, SONAL-C, signed off on contrast injection, after consulting Dr. Michael with Nephrology. Katelin signed consent form. CT DLP: 2596.4 mGycm Automated exposure control for dose reduction was used. CONTRAST: Performed with IV Contrast, patient injected with 80 mL of Isovue 300. There is mild subsegmental atelectasis at the lung bases. Heart is enlarged. There is no pericardial effusion. There is some air and fluid in the distal esophagus. Stomach is intact. There is peritoneal catheter and abdominal fluid consistent with dialysis. Liver shows no focal defect. Spleen is intact . There is no pancreatic mass. There is no adrenal mass. There are clips from cholecystectomy. Kidneys have normal size. There is very little contrast in the kidneys on the delayed images. This ulloa ggests some degree of renal failure. There is no retroperitoneal adenopathy. Bladder distends fairly smoothly. There is enlarged 6.4 cm prostate. There is no inguinal hernia. There is no free fluid in t he pelvis. There are small calcified splenic granulomata. Lumbar vertebra have normal alignment. There is no compression fracture. The bony pelvis is intact. E xam limited somewhat by motion. IMPRESSION: Decreased excretion of the kidneys consistent with some renal failure. Abdominal fluid consistent wit h peritoneal dialysis. No sign of acute abdomen and pelvis. Enlarged prostate.
[2020-11-30] MEDS ORDERED: NALOXONE 0.4 MG/ML 1 ML VIAL IV PRN (23:13)
[2020-11-30 23:23] LABS: Color,Urine Red
[2020-11-30 23:24] LABS: Appearance,Urine BLOODY (Clear); WBC,Urine >182 /hpf (0-5)
[2020-11-30 23:25] LABS: Bacteria,Urine Moderate /hpf; RBC,Urine >182 /hpf (0-5)
[2020-12-01] MEDS: MORPHINE SULFATE 4 MG/ML SYRINGE IV PRN ×4 (01:59→21:45)
[2020-12-01] MEDS: ACETAMINOPHEN TAB 325 MG TAB PO PRN (03:11)
[2020-12-01] MEDS ORDERED: NICOTINE POLACRILEX 2 MG GUM BUCCAL PRN (05:38)
[2020-12-01 07:05] LABS: Glucose,Whole Blood 114 mg/dL (75-99)
--- NOTE | 2020-12-01 07:32 | P.GSHP ---
History of Present Illness H&P Date: 12/01/20 Seen for fall. Reports recent fall 1 week ago. He is afraid to stand up. He reports falling secondary to low blood pressure. He has chronic kidney disease and end-stage renal disease. Patient has cast along the left forearm. Recommend urology consultation. Recommend nephrology consultation. Recommend respite care provider for recurrent admissions and assessment from home. Patient is looking to wheelchair. Past Medical History Past Medical History: COPD, Diabetes Mellitus, Dialysis, Hypertension, Prostate Disorder, Renal Disease, Sleep Apnea/CPAP/BIPAP, Syncope Additional Past Medical History / Comment(s): BPH, uses CPAP, hemodialysis M-W- History of Any Multi-Drug Resistant Organisms: None Reported Past Surgical History: Cholecystectomy, Heart Catheterization, Hernia Repair, Orthopedic Surgery, Pacemaker Additional Past Surgical History / Comment(s): L AV fistula placed on 05/29/2016 [facility], right shoulder proximal humerus repair Past Anesthesia/Blood Transfusion Reactions: No Reported Reaction Type of Cardiac Device: Permanent Pacemaker Device Placement Date:: 05/10/2018 Past Psychological History: No Psychological Hx Reported, Depression Smoking Status: Former smoker Past Alcohol Use History: Rare Additional Past Alcohol Use History / Comment(s): STARTED SMOKING AT AGE 17, QUIT 2019, SMOKED 1PPD Past Drug Use History: None Reported - Past Family History Father History Unknown: Yes Family Medical History: Diabetes Mellitus, Myocardial Infarction ([place]) Additional Family Medical History / Comment(s): at 76 Mother History Unknown: Yes Family Medical History: Congestive Heart Failure (CHF), Diabetes Mellitus Additional Family Medical History / Comment(s): lived to be 97 Brother(s) History Unknown: Yes Family Medical History: COPD, Liver Disease Daughter(s) History Unknown: Yes Medications and Allergies Home Medications Medication Instructions Recorded Confirmed Type Insulin Aspart (For Pump) [NovoLOG 0.01 unit SQ-PUMP CONTINUOUS 02/20/17 11/30/20 History (For Pump)] clonazePAM 0.5 mg PO DAILY 05/08/18 11/30/20 History Montelukast [Singulair] 10 mg PO HS tab 05/10/18 11/30/20 Rx Maureen-Chris 1 tab PO AC-SUPPER 06/17/18 11/30/20 History Atorvastatin Calcium [Lipitor] 40 mg PO AC-SUPPER 02/16/20 11/30/20 History Donepezil [Aricept] 5 mg PO HS 02/16/20 11/30/20 History Omalizumab [Xolair] 150 mg SQ Q30D 02/16/20 11/30/20 History QUEtiapine FUMARATE [SEROquel] 25 mg PO HS 02/16/20 11/30/20 History Tamsulosin [Flomax] 0.4 mg PO DAILY@1200 02/16/20 11/30/20 History Apixaban [Eliquis] 2.5 mg PO BID@1200,2100 02/19/20 11/30/20 History Latanoprost/Pf [Latanoprost 0.005% 1 drop BOTH EYES HS 02/19/20 11/30/20 History Eye Drop] Nicotine Polacrilex [Nicorette] 4 mg BUCCAL Q2H PRN 02/19/20 11/30/20 History Calcium Acetate [PhosLo] 1,334 mg PO BID-W/MEALS 11/26/20 11/30/20 History Calcium Acetate [PhosLo] 667 mg PO HS 11/26/20 11/30/20 History Cinacalcet HCl [Sensipar] 90 mg PO MOWEFR 11/26/20 11/30/20 History DULoxetine HCL [Cymbalta] 60 mg PO DAILY 11/26/20 11/30/20 History Insulin NPH Human Isophane 6 unit SQ HS 11/26/20 11/30/20 History [Novolin N Flexpen] Sodium Bicarbonate (Unknown 1 tab PO HS 11/26/20 11/30/20 History Strength) calcitrioL [Calcitriol] 1 mcg PO MO 11/26/20 11/30/20 History clonazePAM [KlonoPIN] 1 mg PO HS 11/26/20 11/30/20 History Midodrine [ProAmatine] 5 mg PO AC-TID #90 tab 11/28/20 11/30/20 Rx traMADol HCl [Ultram] 50 mg PO TID 11/30/20 11/30/20 History traZODone HCL 50 mg PO HS 11/30/20 11/30/20 History Allergies Allergy/AdvReac Type Severity Reaction Status Date / Time Sulfa (Sulfonamide Allergy Rash/Hives Verified 11/30/20 18:44 Antibiotics) levofloxacin [From Levaquin] AdvReac Rash/Hives Verified 11/30/20 18:44 Surgical - Exam Vital Signs Temp Pulse Resp BP Pulse Ox 98 F 86 18 184/98 97 11/30/20 16:45 11/30/20 16:45 11/30/20 16:45 11/30/20 16:45 11/30/20 16:45 Results - Labs 11/30/20 17:54 11/30/20 17:54 Abnormal Lab Results - Last 24 Hours (Table) 11/30/20 11/30/20 11/30/20 Range/Units 17:54 17:54 17:54 WBC 15.3 H (3.8-10.6) k/uL RBC 3.57 L (4.30-5.90) m/uL Hgb 12.0 L (13.0-17.5) gm/dL Hct 36.0 L (39.0-53.0) % MCV 100.7 H (80.0-100.0) fL Neutrophils # 13.7 H (1.3-7.7) k/uL Lymphocytes # 0.4 L (1.0-4.8) k/uL Sodium 133 L (137-145) mmol/L Chloride 92 L (98-107) mmol/L BUN 48 H (9-20) mg/dL Creatinine 8.67 H* (0.66-1.25) mg/dL Glucose 156 H (74-99) mg/dL POC Glucose (mg/dL) (75-99) mg/dL Calcium 7.8 L (8.4-10.2) mg/dL AST 174 H (17-59) U/L ALT 212 H (4-49) U/L Alkaline Phosphatase 543 H (38-126) U/L Total Protein 6.2 L (6.3-8.2) g/dL Urine RBC >182 H (0-5) /hpf Urine WBC >182 H (0-5) /hpf Urine Bacteria Moderate H (None) /hpf 11/30/20 12/01/20 Range/Units 22:44 07:03 WBC (3.8-10.6) k/uL RBC (4.30-5.90) m/uL Hgb (13.0-17.5) gm/dL Hct (39.0-53.0) % MCV (80.0-100.0) fL Neutrophils # (1.3-7.7) k/uL Lymphocytes # (1.0-4.8) k/uL Sodium (137-145) mmol/L Chloride (98-107) mmol/L BUN (9-20) mg/dL Creatinine (0.66-1.25) mg/dL Glucose (74-99) mg/dL POC Glucose (mg/dL) 138 H 114 H (75-99) mg/dL Calcium (8.4-10.2) mg/dL AST (17-59) U/L ALT (4-49) U/L Alkaline Phosphatase (38-126) U/L Total Protein (6.3-8.2) g/dL Urine RBC (0-5) /hpf Urine WBC (0-5) /hpf Urine Bacteria (None) /hpf Microbiology - Last 24 Hours (Table) 11/30/20 17:54 Urine Culture - Preliminary Urine,Voided Diabetes panel 11/30/20 Range/Units 17:54 Sodium 133 L (137-145) mmol/L Potassium 5.0 (3.5-5.1) mmol/L Chloride 92 L (98-107) mmol/L Carbon Dioxide 26 (22-30) mmol/L BUN 48 H (9-20) mg/dL Creatinine 8.67 H* (0.66-1.25) mg/dL Glucose 156 H (74-99) mg/dL Calcium 7.8 L (8.4-10.2) mg/dL AST 174 H (17-59) U/L ALT 212 H (4-49) U/L Alkaline Phosphatase 543 H (38-126) U/L Total Protein 6.2 L (6.3-8.2) g/dL Albumin 3.6 (3.5-5.0) g/dL Calcium panel 11/30/20 Range/Units 17:54 Calcium 7.8 L (8.4-10.2) mg/dL Albumin 3.6 (3.5-5.0) g/dL Pituitary panel 11/30/20 Range/Units 17:54 Sodium 133 L (137-145) mmol/L Potassium 5.0 (3.5-5.1) mmol/L Chloride 92 L (98-107) mmol/L Carbon Dioxide 26 (22-30) mmol/L BUN 48 H (9-20) mg/dL Creatinine 8.67 H* (0.66-1.25) mg/dL Glucose 156 H (74-99) mg/dL Calcium 7.8 L (8.4-10.2) mg/dL Adrenal panel 11/30/20 Range/Units 17:54 Sodium 133 L (137-145) mmol/L Potassium 5.0 (3.5-5.1) mmol/L Chloride 92 L (98-107) mmol/L Carbon Dioxide 26 (22-30) mmol/L BUN 48 H (9-20) mg/dL Creatinine 8.67 H* (0.66-1.25) mg/dL Glucose 156 H (74-99) mg/dL Calcium 7.8 L (8.4-10.2) mg/dL Total Bilirubin 1.1 (0.2-1.3) mg/dL AST 174 H (17-59) U/L ALT 212 H (4-49) U/L Alkaline Phosphatase 543 H (38-126) U/L Total Protein 6.2 L (6.3-8.2) g/dL Albumin 3.6 (3.5-5.0) g/dL
[2020-12-01] MEDS: traMADol 50 MG TAB PO SCH ×3 (08:32→21:44)
[2020-12-01] MEDS: CALCIUM ACETATE 667 MG TAB PO SCH ×3 (08:32→21:42)
[2020-12-01] MEDS: MIDODRINE 5 MG TAB PO SCH ×3 (08:33→17:44)
[2020-12-01] MEDS: DULoxetine HCL 60 MG CAPSULE.DR PO SCH (08:33)
[2020-12-01 11:32] LABS: Glucose,Whole Blood 156 mg/dL (75-99)
--- NOTE | 2020-12-01 11:59 | P.GSCN ---
History of Present Illness Consult date: 12/01/20 Reason for Consult: Hematuria Requesting physician: Becky Reese History of present illness: The patient is a 75-year-old white male with a history of BPH, for which he has seen Dr. Lo in the past. He is on peritoneal dialysis for renal failure. He voids small amounts, typically twice daily. He recently fell and has experienced urethral bleeding and gross hematuria. A computed tomography scan of the abdomen and pelvis showed no renal abnormalities. He reports slight dysuria. Review of Systems - Constitutional Denies chills, Denies fever - Genitourinary Reports dysuria, Reports hematuria Past Medical History Past Medical History: COPD, Diabetes Mellitus, Dialysis, Hypertension, Prostate Disorder, Renal Disease, Sleep Apnea/CPAP/BIPAP, Syncope Additional Past Medical History / Comment(s): BPH, uses CPAP, hemodialysis M-W- History of Any Multi-Drug Resistant Organisms: None Reported Past Surgical History: Cholecystectomy, Heart Catheterization, Hernia Repair, Orthopedic Surgery, Pacemaker Additional Past Surgical History / Comment(s): L AV fistula placed on 05/29/2016 [facility], right shoulder proximal humerus repair Past Anesthesia/Blood Transfusion Reactions: No Reported Reaction Type of Cardiac Device: Permanent Pacemaker Device Placement Date:: 05/10/2018 Past Psychological History: No Psychological Hx Reported, Depression Smoking Status: Former smoker Past Alcohol Use History: Rare Additional Past Alcohol Use History / Comment(s): STARTED SMOKING AT AGE 17, QUIT 2019, SMOKED 1PPD Past Drug Use History: None Reported - Past Family History Father History Unknown: Yes Family Medical History: Diabetes Mellitus, Myocardial Infarction ([place]) Additional Family Medical History / Comment(s): at 76 Mother History Unknown: Yes Family Medical History: Congestive Heart Failure (CHF), Diabetes Mellitus Additional Family Medical History / Comment(s): lived to be 97 Brother(s) History Unknown: Yes Family Medical History: COPD, Liver Disease Daughter(s) History Unknown: Yes Medications and Allergies Home Medications Medication Instructions Recorded Confirmed Type Insulin Aspart (For Pump) [NovoLOG 0.01 unit SQ-PUMP CONTINUOUS 02/20/17 11/30/20 History (For Pump)] clonazePAM 0.5 mg PO DAILY 05/08/18 11/30/20 History Montelukast [Singulair] 10 mg PO HS tab 05/10/18 11/30/20 Rx Maureen-Chris 1 tab PO AC-SUPPER 06/17/18 11/30/20 History Atorvastatin Calcium [Lipitor] 40 mg PO AC-SUPPER 02/16/20 11/30/20 History Donepezil [Aricept] 5 mg PO HS 02/16/20 11/30/20 History Omalizumab [Xolair] 150 mg SQ Q30D 02/16/20 11/30/20 History QUEtiapine FUMARATE [SEROquel] 25 mg PO HS 02/16/20 11/30/20 History Tamsulosin [Flomax] 0.4 mg PO DAILY@1200 02/16/20 11/30/20 History Apixaban [Eliquis] 2.5 mg PO BID@1200,2100 02/19/20 11/30/20 History Latanoprost/Pf [Latanoprost 0.005% 1 drop BOTH EYES HS 02/19/20 11/30/20 History Eye Drop] Nicotine Polacrilex [Nicorette] 4 mg BUCCAL Q2H PRN 02/19/20 11/30/20 History Calcium Acetate [PhosLo] 1,334 mg PO BID-W/MEALS 11/26/20 11/30/20 History Calcium Acetate [PhosLo] 667 mg PO HS 11/26/20 11/30/20 History Cinacalcet HCl [Sensipar] 90 mg PO MOWEFR 11/26/20 11/30/20 History DULoxetine HCL [Cymbalta] 60 mg PO DAILY 11/26/20 11/30/20 History Insulin NPH Human Isophane 6 unit SQ HS 11/26/20 11/30/20 History [Novolin N Flexpen] Sodium Bicarbonate (Unknown 1 tab PO HS 11/26/20 11/30/20 History Strength) calcitrioL [Calcitriol] 1 mcg PO MO 11/26/20 11/30/20 History clonazePAM [KlonoPIN] 1 mg PO HS 11/26/20 11/30/20 History Midodrine [ProAmatine] 5 mg PO AC-TID #90 tab 11/28/20 11/30/20 Rx traMADol HCl [Ultram] 50 mg PO TID 11/30/20 11/30/20 History traZODone HCL 50 mg PO HS 11/30/20 11/30/20 History Allergies Allergy/AdvReac Type Severity Reaction Status Date / Time Sulfa (Sulfonamide Allergy Rash/Hives Verified 11/30/20 18:44 Antibiotics) levofloxacin [From Levaquin] AdvReac Rash/Hives Verified 11/30/20 18:44 Surgical - Exam Vital Signs Temp Pulse Resp BP Pulse Ox 98 F 86 18 184/98 97 11/30/20 16:45 11/30/20 16:45 11/30/20 16:45 11/30/20 16:45 11/30/20 16:45 - General well developed, well nourished, no distress - Respiratory normal respiratory effort - Abdomen Abdomen: soft, non tender, no guarding, no rigid, no rebound - Genitourinary normal penis with no external lesions, testicles non-tender - Rectum Rectum: normal sphincter tone, no masses, other (Prostate moderately enlarged but smooth) - Psychiatric oriented to time, oriented to person, oriented to place, speech is normal, memory intact Results - Labs 11/30/20 17:54 11/30/20 17:54 Abnormal Lab Results - Last 24 Hours (Table) 11/30/20 11/30/20 11/30/20 Range/Units 17:54 17:54 17:54 WBC 15.3 H (3.8-10.6) k/uL RBC 3.57 L (4.30-5.90) m/uL Hgb 12.0 L (13.0-17.5) gm/dL Hct 36.0 L (39.0-53.0) % MCV 100.7 H (80.0-100.0) fL Neutrophils # 13.7 H (1.3-7.7) k/uL Lymphocytes # 0.4 L (1.0-4.8) k/uL Sodium 133 L (137-145) mmol/L Chloride 92 L (98-107) mmol/L BUN 48 H (9-20) mg/dL Creatinine 8.67 H* (0.66-1.25) mg/dL Glucose 156 H (74-99) mg/dL POC Glucose (mg/dL) (75-99) mg/dL Calcium 7.8 L (8.4-10.2) mg/dL AST 174 H (17-59) U/L ALT 212 H (4-49) U/L Alkaline Phosphatase 543 H (38-126) U/L Total Protein 6.2 L (6.3-8.2) g/dL Urine RBC >182 H (0-5) /hpf Urine WBC >182 H (0-5) /hpf Urine Bacteria Moderate H (None) /hpf 11/30/20 Range/Units 22:44 WBC (3.8-10.6) k/uL RBC (4.30-5.90) m/uL Hgb (13.0-17.5) gm/dL Hct (39.0-53.0) % MCV (80.0-100.0) fL Neutrophils # (1.3-7.7) k/uL Lymphocytes # (1.0-4.8) k/uL Sodium (137-145) mmol/L Chloride (98-107) mmol/L BUN (9-20) mg/dL Creatinine (0.66-1.25) mg/dL Glucose (74-99) mg/dL POC Glucose (mg/dL) 138 H (75-99) mg/dL Calcium (8.4-10.2) mg/dL AST (17-59) U/L ALT (4-49) U/L Alkaline Phosphatase (38-126) U/L Total Protein (6.3-8.2) g/dL Urine RBC (0-5) /hpf Urine WBC (0-5) /hpf Urine Bacteria (None) /hpf Microbiology - Last 24 Hours (Table) 11/30/20 17:54 Urine Culture - Preliminary Urine,Voided Diabetes panel 11/30/20 Range/Units 17:54 Sodium 133 L (137-145) mmol/L Potassium 5.0 (3.5-5.1) mmol/L Chloride 92 L (98-107) mmol/L Carbon Dioxide 26 (22-30) mmol/L BUN 48 H (9-20) mg/dL Creatinine 8.67 H* (0.66-1.25) mg/dL Glucose 156 H (74-99) mg/dL Calcium 7.8 L (8.4-10.2) mg/dL AST 174 H (17-59) U/L ALT 212 H (4-49) U/L Alkaline Phosphatase 543 H (38-126) U/L Total Protein 6.2 L (6.3-8.2) g/dL Albumin 3.6 (3.5-5.0) g/dL Calcium panel 11/30/20 Range/Units 17:54 Calcium 7.8 L (8.4-10.2) mg/dL Albumin 3.6 (3.5-5.0) g/dL Pituitary panel 11/30/20 Range/Units 17:54 Sodium 133 L (137-145) mmol/L Potassium 5.0 (3.5-5.1) mmol/L Chloride 92 L (98-107) mmol/L Carbon Dioxide 26 (22-30) mmol/L BUN 48 H (9-20) mg/dL Creatinine 8.67 H* (0.66-1.25) mg/dL Glucose 156 H (74-99) mg/dL Calcium 7.8 L (8.4-10.2) mg/dL Adrenal panel 11/30/20 Range/Units 17:54 Sodium 133 L (137-145) mmol/L Potassium 5.0 (3.5-5.1) mmol/L Chloride 92 L (98-107) mmol/L Carbon Dioxide 26 (22-30) mmol/L BUN 48 H (9-20) mg/dL Creatinine 8.67 H* (0.66-1.25) mg/dL Glucose 156 H (74-99) mg/dL Calcium 7.8 L (8.4-10.2) mg/dL Total Bilirubin 1.1 (0.2-1.3) mg/dL AST 174 H (17-59) U/L ALT 212 H (4-49) U/L Alkaline Phosphatase 543 H (38-126) U/L Total Protein 6.2 L (6.3-8.2) g/dL Albumin 3.6 (3.5-5.0) g/dL - Imaging CT scan - abdomen: report reviewed, image reviewed Assessment and Plan Plan: In summary, the patient is a 75-year-old male on dialysis. He recently fell and has experienced gross hematuria/urethral bleeding. He states that he was treated with for a UTI within the past month. Urinalysis shows both hematuria and pyuria. A urine culture is pending. If the culture is positive, he should be treated with a course of culture appropriate antibiotics. If the culture is negative, or if the hematuria persists despite treatment of a UTI, he will require office cystoscopy to rule out intravesical pathology. This was all discussed in detail with the patient and his . Time with Patient: Greater than 30
[2020-12-01] MEDS: DIALYSIS (PERIT 1.5%) 2,500 ML 37.5 G/2,500 ML BAG INTRAPERIT SCH ×2 (12:21→18:05)
[2020-12-01] MEDS: TAMSULOSIN 0.4 MG CAP.ER.24H PO SCH (12:22)
[2020-12-01] MEDS: Insulin Aspart (For Pump) 100 UNIT/ML VIAL SQ-PUMP SCH (12:25)
--- NOTE | 2020-12-01 12:29 | P.CONS ---
History of Present Illness - Reason for Consult Consult date: 12/01/20 medical management - History of Present Illness HISTORY OF PRESENT ILLNESS This is a 75-year-old patient of Dr. Jaramillo with a past medical history significant for COPD, diabetes mellitus, chronic kidney disease with dialysis, hypertension, BPH, sleep apnea. Patient has CAPD dialysis twice a day. Patient had recent hospitalization November 26 through November 28 at which time he was seen after a fall and syncopal episode, closed head injury related to trauma, wrist with pus fracture and patient had follow[facility]up [facility] with cast placed to the left wrist. Patient now states that he has had another fall. He states he was in the bathroom and he put his hand on a doorknob at the doorknob twisted and he fell down onto a table landing on the left side and table collapsed. He denies a syncopal episode, no loss of consciousness. He states he has bruising all over his body and a sore all over. He normally uses a walker for ambulation but did not have the bathroom with him. Patient has been brought into the emergency center for evaluation and patient was found to be afebrile, heart rate 86, blood pressure 184/98, pulse ox 97% on room air. Repeat blood work revealed WBC 15.3, hemoglobin 12, platelet count 227. INR 1.0. Sodium 133, potassium 5.0, chloride 92, CO2 26, BUN 48 crea tinine 8.67. Blood sugar 156. Capillary glucose running between 138 and 156. Calcium 7.8. Total bilirubin 1.1. AST 174, ALT 212, alkaline phosphatase 543. Urine was bloody with greater than 182 RBCs and WBC's. Coronavirus not detected. CAT scan of the abdomen and pelvis with contrast revealed decreased excretion of the kidneys consistent with some renal failure. Abdominal fluid consistent with peritoneal dialysis. No sign of acute abdomen and pelvis. Enlarged prostate. CAT scan of the brain and cervical spine revealed no acute intracranial hemorrhage, mass effect or midline shift. No acute fracture or dislocation and cervical spine. Chest x-ray reveals congestive changes. Patient has been admitted to the [facility] floor under trauma team. Urology and nephrology are also on consult. REVIEW OF SYSTEMS Constitutional: No fever, no chills, no night sweats. No weight change. Rep orts weakness, fatigue or lethargy. No daytime sleepiness. EENT: No headache. No blurred vision or double vision, no loss of vision. No loss of Hearing, no ringing in the ears, no dizziness. No nasal drainage or congestion. No epistaxis. No sore throat. Lungs: No shortness of breath, cough, no sputum production. No wheezing. Cardiovascular: No chest pain, no lower extremity edema. No palpitations. No paroxysmal nocturnal dyspnea. No orthopnea. No lightheadedness or dizziness. No syncopal episodes. Abdominal: No abdominal pain. No nausea, vomiting. No diarrhea. No constipation. No bloody or tarry stools.. No loss of appetite. CAPD. Genitourinary: No dysuria, increased frequency, urgency. No urinary retention. Musculoskeletal: No myalgias. Reports muscle weakness, reports gait dysfunction, reports frequent falls. No back pain. No neck pain. Integumentary: Reports abrasions and ecchymosis, no lesions. No rash or pruritus. No unusual bruising. No change in hair or nails. Neurologic: No aphasia. No facial droop. No change in mentation. No head injury. No headache. No paralysis. No paresthesia. Psychiatric: No depression. No anxiety. No mood swings. Endocrine: No abnormal blood sugars. No weight change. No excessive sweating or thirst. No cold intolerance. SOCIAL HISTORY Patient was smoked from age 17 and quit in 2018 he has smoked one pack a day. Patient denies alcohol marijuana or illicit drug use. He lives at home with his . 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 Patient performs CAPD at home. Utilizes a walker. FAMILY HISTORY Patient has 1 brother that from cirrhosis of the liver and one with history of hypertension and heart disease. PHYSICAL EXAMINATION Gen: This is a 75-year-old obese male. He is resting in bed and appears to be comfortable and in no acute distress. HEENT: Head is atraumatic, normocephalic. Pupils equal, round. Sclerae is anicteric. Ecchymosis to the right orbit and cheek lateral. NECK: Supple. No JVD. No lymphadenopathy. No thyromegaly. LUNGS: Clear to auscultation. No wheezes or rhonchi. No intercostal retractions. HEART: Regular rate and rhythm. Systolic murmur. ABDOMEN: Soft. Bowel sounds are present. No masses. No tenderness. EXTREMITIES: No pedal edema. No calf tenderness. Multiple areas of ecchymosis on extremities. Cast in place to the left forearm. NEUROLOGICAL: Patient is awake, alert and oriented x3. Cranial nerves 2 through 12 are grossly intact. ASSESSMENT AND PLAN 1. Mechanical fall with previous admission for syncopal episode and fall. PT and OT will be added. Discussed rehab with the patient and he would prefer to go to [facility] for physical therapy. Consult added for social work regarding possible rehab need due to frequent falls. 2. Hematuria. Consult with urology. Recheck hemoglobin tomorrow, eliquis on hold. 3. Closed head injury related to trauma. CT of head and C-spine negative. 4. Fracture of the distal radius. PT to evaluate and will require prosthesis for walker in order to ambulate. Continue Tylenol as needed for pain. 5. Leukocytosis secondary to trauma. 6. End-stage renal disease on CAPD. Patient will continue with exchanges. Continue PhosLo, calcitriol, proamatine, nephrocaps, cinacalcer HCL 7. Diabetes mellitus type II, insulin requiring. Patient to manage on an insulin pump 8. COPD. Continue Singulair 10 mg by mouth at bedtime 9. Hypertension, stable. 10. BPH. Continue Flomax 0.4 mg 11. Obstructive sleep apnea. Continue CPAP. 12. Hyperlipidemia. Atorvastatin 40 mg 13. Chronic kidney disease mineral bone disorder. Continue PhosLo 1334 mg twice daily and 667 mg at bedtime, Sensipar 90 mg on Saturday, calcitriol 1 g Mondays. 14. Recurrent depression. Continue Cymbalta 60 mg daily, Seroquel 25 mg at bedtime, trazodone 50 mg at bedtime. 15. Dementia. Continue Aricept 5 mg at bedtime. 16. GI prophylaxis. Protonix. 17. DVT prophylaxis. SCDs and CRISTI jeane. Eliquis on hold due to hematuria. Status: Full code Patient will be admitted to the hospital for a minimum of 2 night stay. DISCHARGE PLAN To be determined. Patient states he would like to go home and have physical therapy at [facility] but due to multiple falls, patient might be best treated at subacute rehab. Social work consult for possible rehab. Impression and plan of care have been directed as dictated by the signing physician. Jyoti Peraza nurse practitioner acting as scribe for signing physician. Past Medical History Past Medical History: COPD, Diabetes Mellitus, Dialysis, Hypertension, Prostate Disorder, Renal Disease, Sleep Apnea/CPAP/BIPAP, Syncope Additional Past Medical History / Comment(s): BPH, uses CPAP, hemodialysis M-W- History of Any Multi-Drug Resistant Organisms: None Reported Past Surgical History: Cholecystectomy, Heart Catheterization, Hernia Repair, Orthopedic Surgery, Pacemaker Additional Past Surgical History / Comment(s): L AV fistula placed on 05/29/2016 [facility], right shoulder proximal humerus repair Past Anesthesia/Blood Transfusion Reactions: No Reported Reaction Type of Cardiac Device: Permanent Pacemaker Device Placement Date:: 05/10/2018 Past Psychological History: No Psychological Hx Reported, Depression Smoking Status: Former smoker Past Alcohol Use History: Rare Additional Past Alcohol Use History / Comment(s): STARTED SMOKING AT AGE 17, QUIT 2019, SMOKED 1PPD Past Drug Use History: None Reported - Past Family History Father History Unknown: Yes Family Medical History: Diabetes Mellitus, Myocardial Infarction ([place]) Additional Family Medical History / Comment(s): at 76 Mother History Unknown: Yes Family Medical History: Congestive Heart Failure (CHF), Diabetes Mellitus Additional Family Medical History / Comment(s): lived to be 97 Brother(s) History Unknown: Yes Family Medical History: COPD, Liver Disease Daughter(s) History Unknown: Yes Medications and Allergies Home Medications Medication Instructions Recorded Confirmed Type Insulin Aspart (For Pump) [NovoLOG 0.01 unit SQ-PUMP CONTINUOUS 02/20/17 11/30/20 History (For Pump)] clonazePAM 0.5 mg PO DAILY 05/08/18 11/30/20 History Montelukast [Singulair] 10 mg PO HS tab 05/10/18 11/30/20 Rx Maureen-Chris 1 tab PO AC-SUPPER 06/17/18 11/30/20 History Atorvastatin Calcium [Lipitor] 40 mg PO AC-SUPPER 02/16/20 11/30/20 History Donepezil [Aricept] 5 mg PO HS 02/16/20 11/30/20 History Omalizumab [Xolair] 150 mg SQ Q30D 02/16/20 11/30/20 History QUEtiapine FUMARATE [SEROquel] 25 mg PO HS 02/16/20 11/30/20 History Tamsulosin [Flomax] 0.4 mg PO DAILY@1200 02/16/20 11/30/20 History Apixaban [Eliquis] 2.5 mg PO BID@1200,2100 02/19/20 11/30/20 History Latanoprost/Pf [Latanoprost 0.005% 1 drop BOTH EYES HS 02/19/20 11/30/20 History Eye Drop] Nicotine Polacrilex [Nicorette] 4 mg BUCCAL Q2H PRN 02/19/20 11/30/20 History Calcium Acetate [PhosLo] 1,334 mg PO BID-W/MEALS 11/26/20 11/30/20 History Calcium Acetate [PhosLo] 667 mg PO HS 11/26/20 11/30/20 History Cinacalcet HCl [Sensipar] 90 mg PO MOWEFR 11/26/20 11/30/20 History DULoxetine HCL [Cymbalta] 60 mg PO DAILY 11/26/20 11/30/20 History Insulin NPH Human Isophane 6 unit SQ HS 11/26/20 11/30/20 History [Novolin N Flexpen] Sodium Bicarbonate (Unknown 1 tab PO HS 11/26/20 11/30/20 History Strength) calcitrioL [Calcitriol] 1 mcg PO MO 11/26/20 11/30/20 History clonazePAM [KlonoPIN] 1 mg PO HS 11/26/20 11/30/20 History Midodrine [ProAmatine] 5 mg PO AC-TID #90 tab 11/28/20 11/30/20 Rx traMADol HCl [Ultram] 50 mg PO TID 11/30/20 11/30/20 History traZODone HCL 50 mg PO HS 11/30/20 11/30/20 History Allergies Allergy/AdvReac Type Severity Reaction Status Date / Time Sulfa (Sulfonamide Allergy Rash/Hives Verified 11/30/20 18:44 Antibiotics) levofloxacin [From Levaquin] AdvReac Rash/Hives Verified 11/30/20 18:44 Physical Exam Vitals: Vital Signs Temp Pulse Pulse Resp BP BP Pulse Ox 12/01/20 08:00 98.8 F 82 16 125/56 92 L 12/01/20 03:00 102.3 F H 86 16 134/71 92 L 11/30/20 22:00 88 16 167/87 96 11/30/20 16:45 98 F 86 18 184/98 97 Intake and Output 11/30/20 12/01/20 12/01/20 22:59 06:59 14:59 Output Total 168 Balance -168 Output: Post Void Residual 168 Other: Voiding Method Urinal Urinal Diaper Diaper Incontinent Incontinent # Voids 2 Weight 107.955 kg 107.955 kg Results CBC & Chem 7: 11/30/20 17:54 11/30/20 17:54 Labs: Abnormal Lab Results - Last 24 Hours (Table) 11/30/20 11/30/20 11/30/20 Range/Units 17:54 17:54 17:54 WBC 15.3 H (3.8-10.6) k/uL RBC 3.57 L (4.30-5.90) m/uL Hgb 12.0 L (13.0-17.5) gm/dL Hct 36.0 L (39.0-53.0) % MCV 100.7 H (80.0-100.0) fL Neutrophils # 13.7 H (1.3-7.7) k/uL Lymphocytes # 0.4 L (1.0-4.8) k/uL Sodium 133 L (137-145) mmol/L Chloride 92 L (98-107) mmol/L BUN 48 H (9-20) mg/dL Creatinine 8.67 H* (0.66-1.25) mg/dL Glucose 156 H (74-99) mg/dL POC Glucose (mg/dL) (75-99) mg/dL Calcium 7.8 L (8.4-10.2) mg/dL AST 174 H (17-59) U/L ALT 212 H (4-49) U/L Alkaline Phosphatase 543 H (38-126) U/L Total Protein 6.2 L (6.3-8.2) g/dL Urine RBC >182 H (0-5) /hpf Urine WBC >182 H (0-5) /hpf Urine Bacteria Moderate H (None) /hpf 11/30/20 12/01/20 Range/Units 22:44 07:03 WBC (3.8-10.6) k/uL RBC (4.30-5.90) m/uL Hgb (13.0-17.5) gm/dL Hct (39.0-53.0) % MCV (80.0-100.0) fL Neutrophils # (1.3-7.7) k/uL Lymphocytes # (1.0-4.8) k/uL Sodium (137-145) mmol/L Chloride (98-107) mmol/L BUN (9-20) mg/dL Creatinine (0.66-1.25) mg/dL Glucose (74-99) mg/dL POC Glucose (mg/dL) 138 H 114 H (75-99) mg/dL Calcium (8.4-10.2) mg/dL AST (17-59) U/L ALT (4-49) U/L Alkaline Phosphatase (38-126) U/L Total Protein (6.3-8.2) g/dL Urine RBC (0-5) /hpf Urine WBC (0-5) /hpf Urine Bacteria (None) /hpf Microbiology - Last 24 Hours (Table) 11/30/20 17:54 Urine Culture - Preliminary Urine,Voided
--- NOTE | 2020-12-01 12:57 | CONS ---
CONSULTATION REASON FOR CONSULT: End-stage renal disease. HISTORY OF PRESENT ILLNESS: Patient is a 75-year-old male with end-stage renal disease, currently maintained on peritoneal dialysis. He was admitted to the hospital with history of fall. The patient denies any chest pain, palpitations or shortness of breath. He stated that he fell and he did hit his head and he is not sure if he got hurt in the abdomen but noticed hematuria since the fall. CT scan of the abdomen did not reveal any acute intraabdominal findings. The patient has an enlarged prostate. He states he has some pain as bile while urinating and continues to have bright red blood in his urine. He does not have significant urine output due to end-stage renal disease. No history of fevers or chills. PAST MEDICAL HISTORY: End-stage renal disease, CKD mineral bone disorder, anemia of chronic disease, type 2 diabetes, history of neuropathy, obstructive sleep apnea, history of BPH. PAST SURGICAL HISTORY: Cholecystectomy, cardiac catheterization, hernia repair, AV fistula, PD catheter placement, right shoulder surgery, pacemaker placement. SOCIAL HISTORY: The patient is a former smoker. No history of drug abuse. MEDICATIONS: Medications prior to admission included insulin, Maureen Chris, Lipitor, Aricept, Xolair, Flomax, Eliquis, nicotine patch, PhosLo Sensipar, Cymbalta, Calcitriol, Klonopin, Ultram, trazodone, sodium bicarb, Singulair, midodrine. ALLERGIES: Include SULFA, LEVAQUIN. REVIEW OF SYSTEMS: As per HPI. Other systems negative. EXAMINATION: Patient is comfortable, awake, alert, oriented x3, not in any acute distress. Blood pressure 125/56, heart rate 82 per minute. He had a temperature of 102.3 degrees Fahrenheit yesterday. Examination of the heart S1, S2. Examination of the lungs, bilateral breath sounds are heard. Abdomen is soft. No tenderness noted. Exam of lower extremities shows no evidence of edema. 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 LAB: Show sodium 133, potassium 5.0, chloride 92, BUN 14, creatinine 8.67, hemoglobin 12.0 g/dL. ASSESSMENT: 1. End-stage renal disease, on peritoneal from dialysis. 2. Hematuria status post fall. No acute abnormalities noted on CT scan. Urology has been consulted. The patient has a history of BPH. 3. History of hypertension. Blood pressure has been on the lower side. The patient is maintained on midodrine which we will continue. 4. Chronic kidney disease mineral bone disorder, maintained on Rocaltrol and PhosLo which we will continue. The patient is also on Sensipar which will be continued at the current dose. PLAN: Resume PD exchanges. Await urology evaluation. The patient has a fever. We should culture his urine for underlying urinary tract infection. MMODL / IJN: [id number] /
--- NOTE | 2020-12-01 15:55 | P.GSHP ---
History of Present Illness H&P Date: 12/01/20 CHIEF COMPLAINT: Fall HISTORY OF PRESENT ILLNESS: This is a 75-year-old male with a past medical hi story of COPD, diabetes mellitus with insulin pump, end-stage renal disease on peritoneal dialysis, hypertension, prostate disorder and obstructive sleep apnea. Patient presents to the emergency room after having a fall. He states that he was walking out of the bathroom and lost his balance and fell between the wall and a table. He did report hitting his head. He had no loss of consciousness. He has an abrasion over the right side of his eye and skin tear to the right forearm an abrasion to the right knee. He does report being on Eliquis at home. He had a recent fall about 1 week ago where he fractured his left wrist. Wrist is currently in a splint. He reports that his fall was due to low blood pressure at that time. And patient had another fall about a month ago. Patient is also having hematuria. He reports that the hematuria started after his fall. He does report hitting the right side of his back. Even on the peritoneal dialysis he does urinate's very small amount of urine a couple times a day. Patient has been admitted to the trauma service. PAST MEDICAL HISTORY: See list. PAST SURGICAL HISTORY: See list. MEDICATIONS: See list. ALLERGIES: See list. SOCIAL HISTORY: No illicit drug use. REVIEW OF SYSTEMS: CONSTITUTIONAL: Denies fever or chills. HEENT: Denies blurred vision, vision changes, or eye pain. Denies hemoptysis ENDOCRINE: Denies heat or cold intolerance. CARDIOVASCULAR: Denies chest pain or pressure. RESPIRATORY: No shortness of breath. GASTROINTESTINAL: Denies abdominal pain. Denies nausea or vomiting. NEURO: Denies history of seizures. PSYCH: No depression or suicidal ideation HEMATOLOGIC: Denies bleeding disorders. LYMPHATIC: The patient denies any lumps and bumps around the neck. GENITOURINARY: Denies any blood in urine or increased urinary frequency. MUSCULOSKELETAL: Denies myalgias. Denies joint swelling. Denies decreased range of motion beyond patients baseline. SKIN: Denies pruitis. Denies rash. PHYSICAL EXAM: VITAL SIGNS: Reviewed GENERAL: Well-developed in no acute distress. HEENT: No sclera icterus. Extraocular movements grossly intact. Moist buccal mucosa. Head is atraumatic, normocephalic. Hears conversational speech. No nasal drainage. NECK: Supple without lymphadenopathy. CHEST: Non-labored respirations and equal bilateral excursions. CARDIOVASCULAR: Palpable 2+ radial pulses. ABDOMEN: Soft. Nondistended. Nontender MUSCULOSKELETAL: No clubbing or cyanosis. NEUROLOGIC: No focal or lateralizing signs. Cranial nerves II through XII grossly intact. PSYCH: Appropriate affect. Alert and oriented to person, place and time. SKIN: Well perfused. Good skin turgor. Patient has abrasion over the right side of his eye. Skin tear on the right forearm. As well as bruising. And an abrasion on the right knee. LABORATORY DATA: WBC 15.3 hemoglobin 12 platelets 227 sodium 133 potassium 5.0 creatinine 8.67 AST 174 ALT 212 alk phos 543 Covid not detected Urinalysis positive RBCs and bacteria. Urine culture pending IMAGING: Computed tomography scan abdomen and pelvis decreased excretion of the kidneys consistent with some renal failure. Abdominal fluid consistent with. Still dialysis. No sign of acute abdomen and pelvis. Enlarged prostate Chest x-ray congestive changes Computed tomography scan of the head and cervical spine. There is no acute fracture or dislocation evident in the cervical spine. No acute intracranial hemorrhage, mass effect or midline shift ASSESSMENT: 1. Recurrent falls with trauma. No acute fracture or injury noted on imaging 2. Patient had recent fall about a week ago with left distal radial fracture 3. Hematuria status post fall. No acute abnormality seen on CT. Evaluated by urology and nephrology. 4. End-stage renal disease on peritoneal dialysis 5. Diabetes mellitus with insulin pump 6. Elevated LFTs 7. Leukocytosis PLAN: -Okay to start renal diet -Continue pain medication as needed -Continue to hold Eliquis due to the hematuria. -Consults placed for urology, nephrology and medical service -Continue supportive care -Consult PT OT -Consult social work and case work aide for possible ECF placement -GI prophylaxis Protonix and DVT prophylaxis SCDs Physician Net Manager note has been reviewed by physician. Signing provider agrees with the documented findings, assessment, and plan of care. Past Medical History Past Medical History: COPD, Diabetes Mellitus, Dialysis, Hypertension, Prostate Disorder, Renal Disease, Sleep Apnea/CPAP/BIPAP, Syncope Additional Past Medical History / Comment(s): BPH, uses CPAP, hemodialysis M-W- History of Any Multi-Drug Resistant Organisms: None Reported Past Surgical History: Cholecystectomy, Heart Catheterization, Hernia Repair, Orthopedic Surgery, Pacemaker Additional Past Surgical History / Comment(s): L AV fistula placed on 05/29/2016 [facility], right shoulder proximal humerus repair Past Anesthesia/Blood Transfusion Reactions: No Reported Reaction Type of Cardiac Device: Permanent Pacemaker Device Placement Date:: 05/10/2018 Past Psychological History: No Psychological Hx Reported, Depression Smoking Status: Former smoker Past Alcohol Use History: Rare Additional Past Alcohol Use History / Comment(s): STARTED SMOKING AT AGE 17, QUIT 2019, SMOKED 1PPD Past Drug Use History: None Reported - Past Family History Father History Unknown: Yes Family Medical History: Diabetes Mellitus, Myocardial Infarction (OK) Additional Family Medical History / Comment(s): at 76 Mother History Unknown: Yes Family Medical History: Congestive Heart Failure (CHF), Diabetes Mellitus Additional Family Medical History / Comment(s): lived to be 97 Brother(s) History Unknown: Yes Family Medical History: COPD, Liver Disease Daughter(s) History Unknown: Yes Medications and Allergies Home Medications Medication Instructions Recorded Confirmed Type Insulin Aspart (For Pump) [NovoLOG 0.01 unit SQ-PUMP CONTINUOUS 02/20/17 11/30/20 History (For Pump)] clonazePAM 0.5 mg PO DAILY 05/08/18 11/30/20 History Montelukast [Singulair] 10 mg PO HS tab 05/10/18 11/30/20 Rx Maureen-Chris 1 tab PO AC-SUPPER 06/17/18 11/30/20 History Atorvastatin Calcium [Lipitor] 40 mg PO AC-SUPPER 02/16/20 11/30/20 History Donepezil [Aricept] 5 mg PO HS 02/16/20 11/30/20 History Omalizumab [Xolair] 150 mg SQ Q30D 02/16/20 11/30/20 History QUEtiapine FUMARATE [SEROquel] 25 mg PO HS 02/16/20 11/30/20 History Tamsulosin [Flomax] 0.4 mg PO DAILY@1200 02/16/20 11/30/20 History Apixaban [Eliquis] 2.5 mg PO BID@1200,2100 02/19/20 11/30/20 History Latanoprost/Pf [Latanoprost 0.005% 1 drop BOTH EYES HS 02/19/20 11/30/20 History Eye Drop] Nicotine Polacrilex [Nicorette] 4 mg BUCCAL Q2H PRN 02/19/20 11/30/20 History Calcium Acetate [PhosLo] 1,334 mg PO BID-W/MEALS 11/26/20 11/30/20 History Calcium Acetate [PhosLo] 667 mg PO HS 11/26/20 11/30/20 History Cinacalcet HCl [Sensipar] 90 mg PO MOWEFR 11/26/20 11/30/20 History DULoxetine HCL [Cymbalta] 60 mg PO DAILY 11/26/20 11/30/20 History Insulin NPH Human Isophane 6 unit SQ HS 11/26/20 11/30/20 History [Novolin N Flexpen] Sodium Bicarbonate (Unknown 1 tab PO HS 11/26/20 11/30/20 History Strength) calcitrioL [Calcitriol] 1 mcg PO MO 11/26/20 11/30/20 History clonazePAM [KlonoPIN] 1 mg PO HS 11/26/20 11/30/20 History Midodrine [ProAmatine] 5 mg PO AC-TID #90 tab 11/28/20 11/30/20 Rx traMADol HCl [Ultram] 50 mg PO TID 11/30/20 11/30/20 History traZODone HCL 50 mg PO HS 11/30/20 11/30/20 History Allergies Allergy/AdvReac Type Severity Reaction Status Date / Time Sulfa (Sulfonamide Allergy Rash/Hives Verified 11/30/20 18:44 Antibiotics) levofloxacin [From Levaquin] AdvReac Rash/Hives Verified 11/30/20 18:44 Surgical - Exam Vital Signs Temp Pulse Resp BP Pulse Ox 98 F 86 18 184/98 97 11/30/20 16:45 11/30/20 16:45 11/30/20 16:45 11/30/20 16:45 11/30/20 16:45 Results - Labs 11/30/20 17:54 11/30/20 17:54 Abnormal Lab Results - Last 24 Hours (Table) 11/30/20 11/30/20 11/30/20 Range/Units 17:54 17:54 17:54 WBC 15.3 H (3.8-10.6) k/uL RBC 3.57 L (4.30-5.90) m/uL Hgb 12.0 L (13.0-17.5) gm/dL Hct 36.0 L (39.0-53.0) % MCV 100.7 H (80.0-100.0) fL Neutrophils # 13.7 H (1.3-7.7) k/uL Lymphocytes # 0.4 L (1.0-4.8) k/uL Sodium 133 L (137-145) mmol/L Chloride 92 L (98-107) mmol/L BUN 48 H (9-20) mg/dL Creatinine 8.67 H* (0.66-1.25) mg/dL Glucose 156 H (74-99) mg/dL POC Glucose (mg/dL) (75-99) mg/dL Calcium 7.8 L (8.4-10.2) mg/dL AST 174 H (17-59) U/L ALT 212 H (4-49) U/L Alkaline Phosphatase 543 H (38-126) U/L Total Protein 6.2 L (6.3-8.2) g/dL Urine RBC >182 H (0-5) /hpf Urine WBC >182 H (0-5) /hpf Urine Bacteria Moderate H (None) /hpf 11/30/20 12/01/20 12/01/20 Range/Units 22:44 07:03 11:31 WBC (3.8-10.6) k/uL RBC (4.30-5.90) m/uL Hgb (13.0-17.5) gm/dL Hct (39.0-53.0) % MCV (80.0-100.0) fL Neutrophils # (1.3-7.7) k/uL Lymphocytes # (1.0-4.8) k/uL Sodium (137-145) mmol/L Chloride (98-107) mmol/L BUN (9-20) mg/dL Creatinine (0.66-1.25) mg/dL Glucose (74-99) mg/dL POC Glucose (mg/dL) 138 H 114 H 156 H (75-99) mg/dL Calcium (8.4-10.2) mg/dL AST (17-59) U/L ALT (4-49) U/L Alkaline Phosphatase (38-126) U/L Total Protein (6.3-8.2) g/dL Urine RBC (0-5) /hpf Urine WBC (0-5) /hpf Urine Bacteria (None) /hpf Microbiology - Last 24 Hours (Table) 11/30/20 17:54 Urine Culture - Preliminary Urine,Voided Diabetes panel 11/30/20 Range/Units 17:54 Sodium 133 L (137-145) mmol/L Potassium 5.0 (3.5-5.1) mmol/L Chloride 92 L (98-107) mmol/L Carbon Dioxide 26 (22-30) mmol/L BUN 48 H (9-20) mg/dL Creatinine 8.67 H* (0.66-1.25) mg/dL Glucose 156 H (74-99) mg/dL Calcium 7.8 L (8.4-10.2) mg/dL AST 174 H (17-59) U/L ALT 212 H (4-49) U/L Alkaline Phosphatase 543 H (38-126) U/L Total Protein 6.2 L (6.3-8.2) g/dL Albumin 3.6 (3.5-5.0) g/dL Calcium panel 11/30/20 Range/Units 17:54 Calcium 7.8 L (8.4-10.2) mg/dL Albumin 3.6 (3.5-5.0) g/dL Pituitary panel 11/30/20 Range/Units 17:54 Sodium 133 L (137-145) mmol/L Potassium 5.0 (3.5-5.1) mmol/L Chloride 92 L (98-107) mmol/L Carbon Dioxide 26 (22-30) mmol/L BUN 48 H (9-20) mg/dL Creatinine 8.67 H* (0.66-1.25) mg/dL Glucose 156 H (74-99) mg/dL Calcium 7.8 L (8.4-10.2) mg/dL Adrenal panel 11/30/20 Range/Units 17:54 Sodium 133 L (137-145) mmol/L Potassium 5.0 (3.5-5.1) mmol/L Chloride 92 L (98-107) mmol/L Carbon Dioxide 26 (22-30) mmol/L BUN 48 H (9-20) mg/dL Creatinine 8.67 H* (0.66-1.25) mg/dL Glucose 156 H (74-99) mg/dL Calcium 7.8 L (8.4-10.2) mg/dL Total Bilirubin 1.1 (0.2-1.3) mg/dL AST 174 H (17-59) U/L ALT 212 H (4-49) U/L Alkaline Phosphatase 543 H (38-126) U/L Total Protein 6.2 L (6.3-8.2) g/dL Albumin 3.6 (3.5-5.0) g/dL
[2020-12-01 16:11] LABS: Glucose,Whole Blood 227 mg/dL (75-99)
[2020-12-01] MEDS: ATORVASTATIN 40 MG TAB PO SCH (17:44)
[2020-12-01] MEDS: FOLIC ACID-VIT B COMPLEX-VIT C 1 CAP PO SCH (17:44)
[2020-12-01 20:34] LABS: Glucose,Whole Blood 173 mg/dL (75-99)
[2020-12-01 20:59] LABS: Hepatitis A Antibody IgM Non-Reactive (Non-Reactive); Hepatitis B Core IgM Non-Reactive (Non-Reactive); Hepatitis B Surface Antigen Non-Reactive (Non-Reactive); Hepatitis C IgG Antibody Non-Reactive (Non-Reactive)
[2020-12-01] MEDS ORDERED: SODIUM BICARBONATE TAB 650 MG TAB PO SCH (21:00)
[2020-12-01] MEDS: MONTELUKAST 10 MG TAB PO SCH (21:42)
[2020-12-01] MEDS: traZODone HCL 50 MG TAB PO SCH (21:43)
[2020-12-01] MEDS: QUEtiapine 25 MG TAB PO SCH (21:43)
[2020-12-01] MEDS: DONEPEZIL 5 MG TAB PO SCH (21:44)
[2020-12-01] MEDS: LATANOPROST 0.005% OPHTH DROPS 2.5 ML BTL BOTH EYES SCH (21:45)
[2020-12-01] MEDS: INSULIN NPH 300 UNIT/3 ML VIAL SQ SCH (21:45)
[2020-12-01] MEDS ORDERED: PANTOPRAZOLE 40 MG/10 ML VIAL IVP ONE (23:16)
[2020-12-02] MEDS: DIALYSIS (PERIT 1.5%) 2,500 ML 37.5 G/2,500 ML BAG INTRAPERIT SCH ×4 (00:55→17:57)
[2020-12-02] MEDS: ACETAMINOPHEN TAB 325 MG TAB PO PRN (04:18)
[2020-12-02] MEDS: MORPHINE SULFATE 4 MG/ML SYRINGE IV PRN ×3 (04:25→18:57)
[2020-12-02] MEDS: Insulin Aspart (For Pump) 100 UNIT/ML VIAL SQ-PUMP SCH (05:35)
[2020-12-02 06:52] LABS: Glucose,Whole Blood 144 mg/dL (75-99)
[2020-12-02] MEDS: traMADol 50 MG TAB PO SCH ×3 (07:55→22:21)
[2020-12-02] MEDS: CALCIUM ACETATE 667 MG TAB PO SCH ×3 (07:55→22:21)
[2020-12-02] MEDS: PANTOPRAZOLE 40 MG TABLET PO SCH (07:56)
[2020-12-02] MEDS: MIDODRINE 5 MG TAB PO SCH ×3 (07:56→17:56)
[2020-12-02] MEDS: DULoxetine HCL 60 MG CAPSULE.DR PO SCH (07:56)
[2020-12-02] MEDS ORDERED: CINACALCET 30 MG TAB PO SCH (09:00)
--- NOTE | 2020-12-02 09:09 | US ---
EXAMINATION TYPE: US abdomen limited DATE OF EXAM: 12/02/2020 COMPARISON: CT single phase 11/30/2020 CLINICAL HISTORY: Elevated liver function tests. Abn labs, 300lb diabetic patient with cholecystectom y EXAM MEASUREMENTS: Liver Length: 18.1 cm Gallbladder Wall: Surgically absent CBD: 1.0 cm Right Kidney: 9.8 x 5.2 x 4.9 cm Pancreas: unable to see due to bowel gas Liver: Perihepatic ascites noted, intercostal imaging, cirrhotic appearance Gallbladder: Surgically absent Evidence for sonographic Harvey's sign: no CBD: 1 cm upper limits of normal for post cholecystectomy Right Kidney: wnl IMPRESSION: 1. Findings are suggestive of cirrhosis of the liver. There is perihepatic ascites suggestive of port al hypertension. 2. Cholecystectomy. Common duct is at the upper limits of normal for a postcholecystectomy patient. 3. No renal calculi or hydronephrosis. The right kidney is small. 4. The pancreas is not visualized due to overlying bowel gas. 5. The study is limited due to intercostal imaging. A CT or MRI using liver protocol could be obtaine d if clinically indicated. Single phase study was done on prior exam 11/30/2020.
--- NOTE | 2020-12-02 10:27 | P.DS ---
Providers Date of admission: 11/30/20 23:43 Expected date of discharge: 12/02/20 Attending physician: Dmitriy Pool Consults: 11/30/20 23:14 Consult Physician Urgent Consulting Provider: Ashly Michael Consult Reason/Comments: Renal dialysis Do you want consulting provider notified?: Yes 11/30/20 23:15 Consult Physician Urgent Consulting Provider: Ruperto Aguayo Consult Reason/Comments: Hematuria, renal dialysis, enlarged prostate Do you want consulting provider notified?: Yes 11/30/20 23:19 Consult Physician Urgent Consulting Provider: Becky Reese Consult Reason/Comments: fall Do you want consulting provider notified?: Yes, Notify in am Primary care physician: [facility] Course: HISTORY OF PRESENT ILLNESS This is a 75-year-old patient of Dr. Wang'alonso with a past medical history significant for COPD, diabetes mellitus, chronic kidney disease with dialysis, hypertension, BPH, sleep apnea. Patient has CAPD dialysis twice a day. Patient had recent hospitalization November 26 through November 28 at which time he was seen after a fall and syncopal episode, closed head injury related to trauma, wrist with pus fracture and [facility] with cast placed to the left wrist. Patient now states that he has had another fall. He states he was in the bathroom and he put his hand on a doorknob at the doorknob twisted and he fell down onto a table landing on the left side and table collapsed. He denies a syncopal episode, no loss of consciousness. He states he has bruising all over his body and a sore all over. He normally uses a walker for ambulation but did not have the bathroom with him. Patient has been brought into the emergency center for evaluation and patient was found to be afebrile, heart rate 86, blood pressure 184/98, pulse ox 97% on room air. Repeat blood work revealed WBC 15.3, hemoglobin 12, platelet count 227. INR 1.0. Sodium 133, potassium 5.0, chloride 92, CO2 26, BUN 48 creatinine 8.67. Blood sugar 156. Capillary glucose running between 138 and 156. Calcium 7.8. Total bilirubin 1.1. AST 174, ALT 212, alkaline phosphatase 543. Urine was bloody with greater than 182 RBCs and WBC's. Coronavirus not detected. CAT scan of the abdomen and pelvis with contrast revealed decreased excretion of the kidneys consistent with some renal failure. Abdominal fluid consistent with peritoneal dialysis. No sign of acute abdomen and pelvis. Enlarged prostate. CAT scan of the brain and cervical spine revealed no acute intracranial hemorrhage, mass effect or midline shift. No acute fracture or dislocation and cervical spine. Chest x-ray reveals congestive changes. Patient has been admitted to the [facility] floor under trauma team. Urology and nephrology are also on consult. 12/01: Therapies have recommended subacute rehab. Patient has voiced that he wants to go to [facility] and insurance authorization to be obtained. In order to go to subacute rehab, patient does be transitioned over to hemodialysis and Dr. Michael has discussed this with the patient this morning and is making arrangement for the patient to have hemodialysis today. Regarding cirrhosis found on ultrasound, patient states that he was a heavy drinker in the past but none at this time for greater than 10 years. His temperature max is 100.3, heart rate 90, blood pressure 89/54 to 136/72. Pulse ox 90-92% on room air. Patient started on ceftriaxone 1 g daily. Patient does have history of hypotension and is on midodrine. Patient denies having fever or chills. We will plan to keep the patient overnight monitor for fevers and possible discharge to rehab tomorrow. Discharge will also be dependent on insurance authorization as well. Repeat blood work has been ordered for tomorrow. ASSESSMENT AND PLAN 1. Mechanical fall with previous admission for syncopal episode and fall. 2. Hematuria. 3. Closed head injury related to trauma. 4. Fracture of the distal radius s/p splint. 5. Leukocytosis secondary to trauma. 6. End-stage renal disease on CAPD, position to HD well and fdc. 7. Diabetes mellitus type II, insulin requiring. 8. COPD. 9. Hypertension, stable. 10. BPH. 11. Obstructive sleep apnea. Continue CPAP. 12. Hyperlipidemia. 13. Chronic kidney disease mineral bone disorder. 14. Recurrent depression. 15. Dementia. 16. Cirrhosis of the liver possibly related to history of heavy alcohol abuse and or fatty liver. DISCHARGE PLAN [facility] Impression and plan of care have been directed as dictated by the signing physician. Jyoti Peraza nurse practitioner acting as scribe for signing physician. Patient Condition at Discharge: Stable Plan - Discharge Summary Discharge Rx Participant: Yes New Discharge Prescriptions: New Cefuroxime [Ceftin] 250 mg PO BID 7 Days #14 tab Pantoprazole [Protonix] 40 mg PO AC-BRKFST tablet.dr Continue Insulin Aspart (For Pump) [NovoLOG (For Pump)] 0.01 unit SQ-PUMP CONTINUOUS Montelukast [Singulair] 10 mg PO HS tab Maureen-Chris 1 tab PO AC-SUPPER Tamsulosin [Flomax] 0.4 mg PO DAILY@1200 Donepezil [Aricept] 5 mg PO HS QUEtiapine FUMARATE [SEROquel] 25 mg PO HS Omalizumab [Xolair] 150 mg SQ Q30D Atorvastatin Calcium [Lipitor] 40 mg PO AC-SUPPER Apixaban [Eliquis] 2.5 mg PO BID@1200,2100 Latanoprost/Pf [Latanoprost 0.005% Eye Drop] 1 drop BOTH EYES HS Nicotine Polacrilex [Nicorette] 4 mg BUCCAL Q2H PRN PRN Reason: SMOKING CESSATION Calcium Acetate [PhosLo] 1,334 mg PO BID-W/MEALS Sodium Bicarbonate (Unknown Strength) 1 tab PO HS Midodrine [ProAmatine] 5 mg PO AC-TID #90 tab traZODone HCL 50 mg PO HS clonazePAM 0.5 mg PO DAILY #2 tab traMADol HCl [Ultram] 50 mg PO TID #9 tab DULoxetine HCL [Cymbalta] 60 mg PO DAILY calcitrioL [Calcitriol] 1 mcg PO MO Calcium Acetate [PhosLo] 667 mg PO HS Cinacalcet HCl [Sensipar] 90 mg PO MOWEFR Insulin NPH Human Isophane [Novolin N Flexpen] 6 unit SQ HS clonazePAM [KlonoPIN] 1 mg PO HS #3 tab Discharge Medication List Insulin Aspart (For Pump) [NovoLOG (For Pump)] 0.01 unit SQ-PUMP CONTINUOUS 02/20/17 [History] Montelukast [Singulair] 10 mg PO HS tab 05/10/18 [Rx] Maureen-Chris 1 tab PO AC-SUPPER 06/17/18 [History] Atorvastatin Calcium [Lipitor] 40 mg PO AC-SUPPER 02/16/20 [History] Donepezil [Aricept] 5 mg PO HS 02/16/20 [History] Omalizumab [Xolair] 150 mg SQ Q30D 02/16/20 [History] QUEtiapine FUMARATE [SEROquel] 25 mg PO HS 02/16/20 [History] Tamsulosin [Flomax] 0.4 mg PO DAILY@1200 02/16/20 [History] Apixaban [Eliquis] 2.5 mg PO BID@1200,2100 02/19/20 [History] Latanoprost/Pf [Latanoprost 0.005% Eye Drop] 1 drop BOTH EYES HS 02/19/20 [Histo ry] Nicotine Polacrilex [Nicorette] 4 mg BUCCAL Q2H PRN 02/19/20 [History] Calcium Acetate [PhosLo] 1,334 mg PO BID-W/MEALS 11/26/20 [History] Calcium Acetate [PhosLo] 667 mg PO HS 11/26/20 [History] Cinacalcet HCl [Sensipar] 90 mg PO MOWEFR 11/26/20 [History] DULoxetine HCL [Cymbalta] 60 mg PO DAILY 11/26/20 [History] Insulin NPH Human Isophane [Novolin N Flexpen] 6 unit SQ HS 11/26/20 [History] Sodium Bicarbonate (Unknown Strength) 1 tab PO HS 11/26/20 [History] calcitrioL [Calcitriol] 1 mcg PO MO 11/26/20 [History] Midodrine [ProAmatine] 5 mg PO AC-TID #90 tab 11/28/20 [Rx] traZODone HCL 50 mg PO HS 11/30/20 [History] Cefuroxime [Ceftin] 250 mg PO BID 7 Days #14 tab 12/02/20 [Rx] Pantoprazole [Protonix] 40 mg PO AC-BRKFST tablet. 12/02/20 [Rx] clonazePAM 0.5 mg PO DAILY #2 tab 12/02/20 [Rx] clonazePAM [KlonoPIN] 1 mg PO HS #3 tab 12/02/20 [Rx] traMADol HCl [Ultram] 50 mg PO TID #9 tab 12/02/20 [Rx] Follow up Appointment(s)/Referral(s): Venita Powell, [NON-STAFF] - As Needed Kiel Wang DO [Primary Care Provider] - 1-2 days
[2020-12-02 11:44] LABS: Glucose,Whole Blood 129 mg/dL (75-99)
[2020-12-02 11:57] LABS: HCT 30.1 % (39.6-50.0); MCHC 33.2 g/dL (32.0-37.0); MCV 105.2 fL (80.0-97.0); Mean Platelet Volume 11.6 fL (9.5-12.2); Platelet Count 188 X 10*3/uL (140-440); RBC 2.86 X 10*6/uL (4.40-5.60); RDW 14.9 % (11.5-14.5); WBC 25.39 X 10*3/uL (4.50-10.00)
--- NOTE | 2020-12-02 11:57 | PN ---
PROGRESS NOTE Patient is seen for followup for end-stage renal disease. There are plans for discharge to rehab, however, patient will not be able to continue his PD at rehab and will be switched temporarily to hemodialysis. EXAMINATION: Today blood pressure is 136/72, heart rate 91 per minute, he is afebrile. Examination of the heart S1, S2. Examination of the lungs, decreased breath sounds at bases. Abdomen is soft, nontender. Examination of lower extremities shows no significant edema. FLATWORK PRESSER exam grossly intact. LAB: Labs are not available from today. On November 30, sodium 133, potassium 5.0, hemoglobin 12.0 g/dL. ASSESSMENT: 1. End-stage renal disease, on peritoneal dialysis. Patient will be switched over to temporary hemodialysis while he is in rehab. 2. Syncope, possibly related to hypotension, currently maintained on midodrine, status post IV fluids, maintained on 1.5% exchanges. 3. Pyuria, rule out urinary tract infection. Urine culture is pending. 4. Chronic kidney disease mineral bone disorder, maintained on Sensipar, PhosLo and Rocaltrol. 5. Type 2 diabetes. PLAN: Continue with midodrine. Follow up on urine cultures and discontinue the sodium bicarb. MMODL / IJN: [id number] /
[2020-12-02] MEDS: TAMSULOSIN 0.4 MG CAP.ER.24H PO SCH (12:11)
[2020-12-02 12:31] LABS: Basophils # (A) 0.09 X 10*3/uL (0.00-0.10); Basophils % (A) 0.4 %; Eosinophils % (A) 0.4 %; Lymphocytes # (A) 0.71 X 10*3/uL (0.90-5.00); Lymphocytes % (A) 2.8 %; Macrocytosis (M) 2+; Monocytes % (A) 7.1 %; Neutrophils # (A) 22.33 X 10*3/uL (1.80-7.70); Neutrophils % (A) 87.9 %
--- NOTE | 2020-12-02 12:44 | P.PN ---
Subjective Progress Note Date: 12/02/20 HISTORY OF PRESENT ILLNESS This is a 75-year-old patient of Dr. Jaramillo with a past medical history significant for COPD, diabetes mellitus, chronic kidney disease with dialysis, hypertension, BPH, sleep apnea. Patient has CAPD dialysis twice a day. Patient had recent hospitalization November 26 through November 28 at which time he was seen after a fall and syncopal episode, closed head injury related to trauma, wrist with pus fracture and patient had follow[facility]up [facility] with cast placed to the left wrist. Patient now states that he has had another fall. He states he was in the bathroom and he put his hand on a doorknob at the doorknob twisted and he fell down onto a table landing on the left side and table collapsed. He denies a syncopal episode, no loss of consciousness. He states he has bruising all over his body and a sore all over. He normally uses a walker for ambulation but did not have the bathroom with him. Patient has been brought into the emergency center for evaluation and patient was found to be afebrile, heart rate 86, blood pressure 184/98, pulse ox 97% on room air. Repeat blood work revealed WBC 15.3, hemoglobin 12, platelet count 227. INR 1.0. Sodium 133, potassium 5.0, chloride 92, CO2 26, BUN 48 creatinine 8.67. Blood sugar 156. Capillary glucose running between 138 and 156. Calcium 7.8. Total bilirubin 1.1. AST 174, ALT 212, alkaline phosphatase 543. Urine was bloody with greater than 182 RBCs and WBC's. Coronavirus not detected. CAT scan of the abdomen and pelvis with contrast revealed decreased excretion of the kidneys consistent with some renal failure. Abdominal fluid consistent with peritoneal dialysis. No sign of acute abdomen and pelvis. Enlarged prostate. CAT scan of the brain and cervical spine revealed no acute intracranial hemorrhage, mass effect or midline shift. No acute fracture or dislocation and cervical spine. Chest x-ray reveals congestive changes. Patient has been admitted to the [facility] floor under trauma team. Urology and nephrology are also on consult. 12/01: Therapies have recommended subacute rehab. Patient has voiced that he wants to go to [facility] and insurance authorization to be obtained. In order to go to subacute rehab, patient does be transitioned over to hemodialysis and Dr. Michael has discussed this with the patient this morning and is making arrangement for the patient to have hemodialysis today. Regarding cirrhosis found on ultrasound, patient states that he was a heavy drinker in the past but none at this time for greater than 10 years. His temperature max is 100.3, heart rate 90, blood pressure 89/54 to 136/72. Pulse ox 90-92% on room air. Patient started on ceftriaxone 1 g daily. Patient does have history of hypotension and is on midodrine. Patient denies having fever or chills. We will plan to keep the patient overnight monitor for fevers and possible discharge to rehab tomorrow. Discharge will also be dependent on insurance authorization as well. Repeat blood work has been ordered for tomorrow. REVIEW OF SYSTEMS Constitutional: Noted fever, no chills, no night sweats. No weight change. Reports weakness, fatigue or lethargy. No daytime sleepiness. EENT: No headache. No blurred vision or double vision, no loss of vision. No loss of Hearing, no ringing in the ears, no dizziness. No nasal drainage or congestion. No epistaxis. No sore throat. Lungs: No shortness of breath, cough, no sputum production. No wheezing. Cardiovascular: No chest pain, no lower extremity edema. No palpitations. No paroxysmal nocturnal dyspnea. No orthopnea. No lightheadedness or dizziness. No syncopal episodes. Abdominal: No abdominal pain. No nausea, vomiting. No diarrhea. No constipation. No bloody or tarry stools.. No loss of appetite. CAPD. Genitourinary: No dysuria, increased frequency, urgency. No urinary retention. Musculoskeletal: No myalgias. Reports muscle weakness, reports gait dysfunction, reports frequent falls. No back pain. No neck pain. Integumentary: Reports abrasions and ecchymosis, no lesions. No rash or pruritus. No unusual bruising. No change in hair or nails. Neurologic: No aphasia. No facial droop. No change in mentation. No head injury. No headache. No paralysis. No paresthesia. Psychiatric: No depression. No anxiety. No mood swings. Endocrine: No abnormal blood sugars. No weight change. No excessive sweating or thirst. No cold intolerance. PHYSICAL EXAMINATION Gen: This is a 75-year-old obese male. He is resting in bed and appears to be comfortable and in no acute distress. HEENT: Head is atraumatic, normocephalic. Pupils equal, round. Sclerae is anicteric. Ecchymosis to the right orbit and cheek lateral. NECK: Supple. No JVD. No lymphadenopathy. No thyromegaly. LUNGS: Clear to auscultation. No wheezes or rhonchi. No intercostal retractions. HEART: Regular rate and rhythm. Systolic murmur. ABDOMEN: Soft. Bowel sounds are present. No masses. No tenderness. EXTREMITIES: No pedal edema. No calf tenderness. Multiple areas of ecchymosis on extremities. Cast in place to the left forearm. NEUROLOGICAL: Patient is awake, alert and oriented x3. Cranial nerves 2 through 12 are grossly intact. ASSESSMENT AND PLAN 1. Mechanical fall with previous admission for syncopal episode and fall. PT and OT will be added. Discussed rehab with the patient and he would prefer to go to [facility] for physical therapy. Consult added for social work regarding possible rehab need due to frequent falls. 2. Hematuria and UTI. Consult with urology. Recheck hemoglobin tomorrow, eliquis on hold. Patient started on ceftriaxone. 3. Closed head injury related to trauma. CT of head and C-spine negative. 4. Fracture of the distal radius. PT to evaluate and will require prosthesis for walker in order to ambulate. Continue Tylenol as needed for pain. 5. Leukocytosis secondary to trauma and UTI. 6. End-stage renal disease on CAPD. Patient will continue with exchanges. Continue PhosLo, calcitriol, proamatine, nephrocaps, cinacalcer HCL 7. Diabetes mellitus type II, insulin requiring. Patient to manage on an insulin pump 8. COPD. Continue Singulair 10 mg by mouth at bedtime 9. Hypertension, stable. 10. BPH. Continue Flomax 0.4 mg 11. Obstructive sleep apnea. Continue CPAP. 12. Hyperlipidemia. Atorvastatin 40 mg 13. Chronic kidney disease mineral bone disorder. Continue PhosLo 1334 mg twice daily and 667 mg at bedtime, Sensipar 90 mg on Saturday, calcitriol 1 g Mondays. 14. Recurrent depression. Continue Cymbalta 60 mg daily, Seroquel 25 mg at bedtime, trazodone 50 mg at bedtime. 15. Dementia. Continue Aricept 5 mg at bedtime. 16. GI prophylaxis. Protonix. 17. DVT prophylaxis. SCDs and CRISTI hose. Eliquis on hold due to hematuria. Status: Full code DISCHARGE PLAN on Saturday if cleared by Dr. Xiong and insurance authorization obtained. Impression and plan of care have been directed as dictated by the signing physician. Jyoti Peraza nurse practitioner acting as scribe for signing physician. Objective - Vital Signs Vital signs: Vital Signs Temp 99.3 F 12/02/20 07:39 Pulse 90 12/02/20 07:39 Resp 18 12/02/20 07:39 BP 89/54 12/02/20 07:39 Pulse Ox 90 L 12/02/20 07:39 Intake & Output 12/01/20 12/02/20 12/02/20 18:59 06:59 18:59 Intake Total 540 Output Total 3500 Balance 540 -3500 Intake: Oral 540 Output: Urine 100 Other 3400 Other: Voiding Method Urinal Urinal Diaper Diaper Incontinent Incontinent # Voids 3 - Labs CBC & Chem 7: 12/02/20 06:44 11/30/20 17:54 Labs: Abnormal Lab Results - Last 24 Hours (Table) 12/01/20 12/01/20 12/01/20 Range/Units 11:31 16:10 20:33 POC Glucose (mg/dL) 156 H 227 H 173 H (75-99) mg/dL 12/02/20 Range/Units 06:51 POC Glucose (mg/dL) 144 H (75-99) mg/dL
[2020-12-02 14:22] LABS: African American GFR (CKD) 5.6 (60.0-200.0); Albumin/Globulin Ratio 1.36 (1.60-3.17); Anion Gap 17.4 mmol/L (4.00-12.00); BUN/Creat Ratio 6.56 Ratio (12.00-20.00); Calcium 7.8 mg/dL (8.7-10.3); Carbon Dioxide 24.6 mmol/L (21.6-31.8); Globulin 2.2 g/dL (1.6-3.3); Non-African American GFR(CKD) 4.8 (60.0-200.0); Total Bilirubin 1.1 mg/dL (0.3-1.2); Total Protein 5.2 g/dL (6.2-8.2)
--- NOTE | 2020-12-02 14:30 | P.PN ---
Subjective Progress Note Date: 12/02/20 CHIEF COMPLAINT: Status post fall HISTORY OF PRESENT ILLNESS: The patient is a 75-year-old male with recurrent falls requiring hospitalization at least 3 times in the past 1-2 weeks. Patient reports fall secondary to low blood pressure. Patient's at bedside. He undergoes peritoneal dialysis. No new chest pain. ROS: No reports of nausea and vomiting. No fevers or chills. Denies shortness of breath. PHYSICAL EXAM: VITAL SIGNS: Reviewed CONSTITUTIONAL: Well developed and in no acute distress. EYES: Conjuctivae without sclera icterus. Extraocular movements grossly intact. HEAD, EARS, NOSE, THROAT: Moist buccal mucosa. Ecchymosis along the left side. NECK: No thyroidomegaly. RESPIRATORY: Non-labored respirations and equal bilateral excursions. CARDIOVASCULAR: Regular rate. Regular rhythm. ABDOMEN: No peritonitis. MUSCULOSKELETAL: Left arm cast present. SKIN: Good skin turgor. Well perfused. NEUROLOGIC: Cranial nerves II through XII grossly intact. No focal or laterali zing signs. PSYCH: Appropriate affect. Alert and oriented to person. CLINICAL LABS: White blood cell count elevated from 15,000 at over 25,000. ASSESSMENT: 1. Status post recurrent falls due to hypotension 2. End-stage renal disease, peritoneal dialysis dependent PLAN: 1. Recommend hospice care sales consultant for recurrent falls. Patient is requesting a wheelchair for home. 2. No acute surgical intervention at this time. 3. Patient stable discharge from medically stable. Objective - Vital Signs Vital signs: Vital Signs Temp 99.3 F 12/02/20 07:39 Pulse 90 12/02/20 08:00 Resp 18 12/02/20 08:00 BP 89/54 12/02/20 07:39 Pulse Ox 90 L 12/02/20 07:39 Intake & Output 12/01/20 12/02/20 12/02/20 18:59 06:59 18:59 Intake Total 540 Output Total 3500 Balance 540 -3500 Intake: Oral 540 Output: Urine 100 Other 3400 Other: Voiding Method Urinal Urinal Urinal Diaper Diaper Diaper Incontinent Incontinent Incontinent # Voids 3 - Labs CBC & Chem 7: 12/02/20 06:44 12/02/20 06:44 Labs: Abnormal Lab Results - Last 24 Hours (Table) 12/01/20 12/01/20 12/02/20 Range/Units 16:10 20:33 06:44 WBC 25.39 H (4.50-10.00) X 10*3/uL RBC 2.86 L (4.40-5.60) X 10*6/uL Hgb 10.0 L (13.0-17.0) g/dL Hct 30.1 L (39.6-50.0) % MCV 105.2 H (80.0-97.0) fL MCH 35.0 H (27.0-32.0) pg RDW 14.9 H (11.5-14.5) % Immature Gran # 0.36 H (0.00-0.04) X 10*3/uL Neutrophils # 22.33 H (1.80-7.70) X 10*3/uL Lymphocytes # 0.71 L (0.90-5.00) X 10*3/uL Monocytes # 1.80 H (0.20-1.00) X 10*3/uL Sodium (135-145) mmol/L Chloride (96-109) mmol/L Anion Gap (4.00-12.00) mmol/L BUN (9.0-27.0) mg/dL Creatinine (0.6-1.5) mg/dL Est GFR (CKD-EPI)AfAm (60.0-200.0) Est GFR (CKD-EPI)NonAf (60.0-200.0) BUN/Creatinine Ratio (12.00-20.00) Ratio Glucose (70-110) mg/dL POC Glucose (mg/dL) 227 H 173 H (75-99) mg/dL Calcium (8.7-10.3) mg/dL AST (14-35) U/L ALT (10-49) U/L Alkaline Phosphatase (41-126) U/L Total Protein (6.2-8.2) g/dL Albumin (3.80-4.90) g/dL Albumin/Globulin Ratio (1.60-3.17) g/dL 12/02/20 12/02/20 12/02/20 Range/Units 06:44 06:51 11:42 WBC (4.50-10.00) X 10*3/uL RBC (4.40-5.60) X 10*6/uL Hgb (13.0-17.0) g/dL Hct (39.6-50.0) % MCV (80.0-97.0) fL MCH (27.0-32.0) pg RDW (11.5-14.5) % Immature Gran # (0.00-0.04) X 10*3/uL Neutrophils # (1.80-7.70) X 10*3/uL Lymphocytes # (0.90-5.00) X 10*3/uL Monocytes # (0.20-1.00) X 10*3/uL Sodium 132 L (135-145) mmol/L Chloride 90 L (96-109) mmol/L Anion Gap 17.40 H (4.00-12.00) mmol/L BUN 63.0 H (9.0-27.0) mg/dL Creatinine 9.6 H* (0.6-1.5) mg/dL Est GFR (CKD-EPI)AfAm 5.6 L (60.0-200.0) Est GFR (CKD-EPI)NonAf 4.8 L (60.0-200.0) BUN/Creatinine Ratio 6.56 L (12.00-20.00) Ratio Glucose 153 H (70-110) mg/dL POC Glucose (mg/dL) 144 H 129 H (75-99) mg/dL Calcium 7.8 L (8.7-10.3) mg/dL AST 54 H (14-35) U/L ALT 98 H (10-49) U/L Alkaline Phosphatase 493 H (41-126) U/L Total Protein 5.2 L (6.2-8.2) g/dL Albumin 3.00 L (3.80-4.90) g/dL Albumin/Globulin Ratio 1.36 L (1.60-3.17) g/dL Assessment and Plan (1) Hypotension Current Visit: Yes Status: Acute Code(s): I95.9 - HYPOTENSION, UNSPECIFIED SNOMED Code(s): 02773182 (2) Fall Current Visit: Yes Status: Acute Code(s): W19.XXXA - UNSPECIFIED FALL, INITIAL ENCOUNTER SNOMED Code(s): 6641306 (3) Hematuria Current Visit: Yes Status: Acute Code(s): R31.9 - HEMATURIA, UNSPECIFIED SNOMED Code(s): 42068600
[2020-12-02 16:50] LABS: Glucose,Whole Blood 168 mg/dL (75-99)
[2020-12-02] MEDS: FOLIC ACID-VIT B COMPLEX-VIT C 1 CAP PO SCH (17:56)
[2020-12-02] MEDS: ATORVASTATIN 40 MG TAB PO SCH (17:56)
[2020-12-02 20:48] LABS: Glucose,Whole Blood 183 mg/dL (75-99)
[2020-12-02] MEDS: DONEPEZIL 5 MG TAB PO SCH (22:21)
[2020-12-02] MEDS: traZODone HCL 50 MG TAB PO SCH (22:22)
[2020-12-02] MEDS: QUEtiapine 25 MG TAB PO SCH (22:22)
[2020-12-02] MEDS: LATANOPROST 0.005% OPHTH DROPS 2.5 ML BTL BOTH EYES SCH (22:22)
[2020-12-02] MEDS: INSULIN NPH 300 UNIT/3 ML VIAL SQ SCH (22:22)
[2020-12-02] MEDS: MONTELUKAST 10 MG TAB PO SCH (22:22)
[2020-12-03] MEDS: DIALYSIS (PERIT 1.5%) 2,500 ML 37.5 G/2,500 ML BAG INTRAPERIT SCH ×2 (00:38→05:16)
[2020-12-03 06:55] LABS: Glucose,Whole Blood 309 mg/dL (75-99)
[2020-12-03 07:24] VITALS: BP 111/58; PULSE 84; RESP 17; TEMP 98.8
[2020-12-03] MEDS ORDERED: INSULIN ASPART (NovoLOG) 100 UNIT/ML VIAL SQ ONE (08:00)
[2020-12-03] MEDS: MIDODRINE 5 MG TAB PO SCH (08:10)
[2020-12-03] MEDS: CALCIUM ACETATE 667 MG TAB PO SCH (08:10)
[2020-12-03] MEDS: PANTOPRAZOLE 40 MG TABLET PO SCH (08:11)
[2020-12-03] MEDS: traMADol 50 MG TAB PO SCH (08:11)
[2020-12-03] MEDS: DULoxetine HCL 60 MG CAPSULE.DR PO SCH (08:11)
--- NOTE | 2020-12-03 10:03 | P.PN ---
Subjective Patient is seen in follow-up for end-stage renal disease. He is maintained on peritoneal dialysis. He initially presented with a fall. Awaiting rehab placement. No issues with dialysis. Vital signs are stable. General: The patient appeared well nourished and normally developed. HEENT: Head exam is unremarkable. Neck is without jugular venous distension. LUNGS: Breath sounds decreased. HEART: Rate and Rhythm are regular. ABDOMEN: Soft, no distention. EXTREMITITES: No edema. Objective - Vital Signs Vital signs: Vital Signs Temp 98.8 F 12/03/20 07:23 Pulse 84 12/03/20 08:00 Resp 17 12/03/20 08:00 BP 111/58 12/03/20 07:23 Pulse Ox 91 L 12/03/20 07:23 Intake & Output 12/02/20 12/03/20 12/03/20 18:59 06:59 18:59 Output Total 100 Balance -100 Output: Urine 100 Other: Voiding Method Urinal Urinal Urinal Diaper Diaper Diaper Incontinent Incontinent Incontinent # Voids 5 8 - Labs CBC & Chem 7: 12/02/20 06:44 12/02/20 06:44 Labs: Abnormal Lab Results - Last 24 Hours (Table) 12/02/20 12/02/20 12/02/20 Range/Units 06:44 06:44 11:42 WBC 25.39 H (4.50-10.00) X 10*3/uL RBC 2.86 L (4.40-5.60) X 10*6/uL Hgb 10.0 L (13.0-17.0) g/dL Hct 30.1 L (39.6-50.0) % MCV 105.2 H (80.0-97.0) fL MCH 35.0 H (27.0-32.0) pg RDW 14.9 H (11.5-14.5) % Immature Gran # 0.36 H (0.00-0.04) X 10*3/uL Neutrophils # 22.33 H (1.80-7.70) X 10*3/uL Lymphocytes # 0.71 L (0.90-5.00) X 10*3/uL Monocytes # 1.80 H (0.20-1.00) X 10*3/uL Sodium 132 L (135-145) mmol/L Chloride 90 L (96-109) mmol/L Anion Gap 17.40 H (4.00-12.00) mmol/L BUN 63.0 H (9.0-27.0) mg/dL Creatinine 9.6 H* (0.6-1.5) mg/dL Est GFR (CKD-EPI)AfAm 5.6 L (60.0-200.0) Est GFR (CKD-EPI)NonAf 4.8 L (60.0-200.0) BUN/Creatinine Ratio 6.56 L (12.00-20.00) Ratio Glucose 153 H (70-110) mg/dL POC Glucose (mg/dL) 129 H (75-99) mg/dL Calcium 7.8 L (8.7-10.3) mg/dL AST 54 H (14-35) U/L ALT 98 H (10-49) U/L Alkaline Phosphatase 493 H (41-126) U/L Total Protein 5.2 L (6.2-8.2) g/dL Albumin 3.00 L (3.80-4.90) g/dL Albumin/Globulin Ratio 1.36 L (1.60-3.17) g/dL 12/02/20 12/02/20 12/03/20 Range/Units 16:49 20:46 06:53 WBC (4.50-10.00) X 10*3/uL RBC (4.40-5.60) X 10*6/uL Hgb (13.0-17.0) g/dL Hct (39.6-50.0) % MCV (80.0-97.0) fL MCH (27.0-32.0) pg RDW (11.5-14.5) % Immature Gran # (0.00-0.04) X 10*3/uL Neutrophils # (1.80-7.70) X 10*3/uL Lymphocytes # (0.90-5.00) X 10*3/uL Monocytes # (0.20-1.00) X 10*3/uL Sodium (135-145) mmol/L Chloride (96-109) mmol/L Anion Gap (4.00-12.00) mmol/L BUN (9.0-27.0) mg/dL Creatinine (0.6-1.5) mg/dL Est GFR (CKD-EPI)AfAm (60.0-200.0) Est GFR (CKD-EPI)NonAf (60.0-200.0) BUN/Creatinine Ratio (12.00-20.00) Ratio Glucose (70-110) mg/dL POC Glucose (mg/dL) 168 H 183 H 309 H (75-99) mg/dL Calcium (8.7-10.3) mg/dL AST (14-35) U/L ALT (10-49) U/L Alkaline Phosphatase (41-126) U/L Total Protein (6.2-8.2) g/dL Albumin (3.80-4.90) g/dL Albumin/Globulin Ratio (1.60-3.17) g/dL Microbiology - Last 24 Hours (Table) 11/30/20 17:54 Urine Culture - Preliminary Urine,Voided Gram Neg Bacilli Assessment and Plan Plan: Assessment: 1. End-stage renal disease maintained on peritoneal dialysis. 2. Status post mechanical fall. 3. Generalized debility. 4. Chronic kidney disease mineral bone disease maintained on PhosLo and Sensipar. 5. Diabetes mellitus. 6. Chronic hypotension maintained on midodrine. 7. UTI. Urine culture positive for gram-negative bacilli. On antibiotics. 8. Anemia of chronic kidney disease. Plan: Maintain current peritoneal dialysis exchanges. Add Aranesp. Await rehab placement. He will be transitioned over to temporary hemodialysis while in rehab.
[2020-12-03] MEDS ORDERED: DARBEPOETIN ALFA 40 MCG/0.4 ML SYRINGE SQ SCH (11:00)
[2020-12-03 11:22] LABS: Glucose,Whole Blood 250 mg/dL (75-99)
[2020-12-03 12:19] LABS: HCT 30.1 % (39.6-50.0); HGB 9.5 g/dL (13.0-17.0); MCH 33.1 pg (27.0-32.0); MCHC 31.6 g/dL (32.0-37.0); MCV 104.9 fL (80.0-97.0); Platelet Count 213 X 10*3/uL (140-440); RBC 2.87 X 10*6/uL (4.40-5.60); RDW 14.6 % (11.5-14.5); WBC 29.94 X 10*3/uL (4.50-10.00)
[2020-12-03] MEDS ORDERED: INSULIN ASPART (NovoLOG) 100 UNIT/ML VIAL SQ SCH (12:30)
[2020-12-03 13:05] LABS: African American GFR (CKD) 6.1 (60.0-200.0); Albumin/Globulin Ratio 1.36 (1.60-3.17); Anion Gap 13.3 mmol/L (4.00-12.00); BUN/Creat Ratio 6.63 Ratio (12.00-20.00); Calcium 7.1 mg/dL (8.7-10.3); Carbon Dioxide 23.7 mmol/L (21.6-31.8); Globulin 2.2 g/dL (1.6-3.3); Non-African American GFR(CKD) 5.3 (60.0-200.0); Potassium 5.1 mmol/L (3.5-5.5); Total Bilirubin 0.9 mg/dL (0.2-1.2); Total Protein 5.2 g/dL (6.2-8.2)
== END 2020-12-03 11:45 ==
LOC: EC 16:42 → 4SSUR 23:43
PROVIDERS: ADMIT Internal Medicine Geriatric Medicine; ATTEND Internal Medicine Geriatric Medicine
DX: S09.90XA Unspecified injury of head, initial encounter (principal); S51.811A Laceration without foreign body of right forearm, initial encounter; S80.211A Abrasion, right knee, initial encounter; W07.XXXA Fall from chair, initial encounter; Y93.01 Activity, walking, marching and hiking; R31.0 Gross hematuria; Z20.822 Contact with and (suspected) exposure to COVID-19; N39.0 Urinary tract infection, site not specified; N18.6 End stage renal disease; I12.0 Hypertensive chronic kidney disease with stage 5 chronic kidney disease or end stage renal disease; R29.6 Repeated falls; I95.89 Other hypotension; E11.22 Type 2 diabetes mellitus with diabetic chronic kidney disease; E11.40 Type 2 diabetes mellitus with diabetic neuropathy, unspecified; G47.33 Obstructive sleep apnea (adult) (pediatric); J44.9 Chronic obstructive pulmonary disease, unspecified; E78.5 Hyperlipidemia, unspecified; N40.0 Benign prostatic hyperplasia without lower urinary tract symptoms; F33.9 Major depressive disorder, recurrent, unspecified; F03.90 Unspecified dementia, unspecified severity, without behavioral disturbance, psychotic disturbance, mood disturbance, and anxiety; K76.0 Fatty (change of) liver, not elsewhere classified; K74.60 Unspecified cirrhosis of liver; M89.8X9 Other specified disorders of bone, unspecified site; N32.89 Other specified disorders of bladder; N42.9 Disorder of prostate, unspecified; R60.9 Edema, unspecified; R79.89 Other specified abnormal findings of blood chemistry; D63.1 Anemia in chronic kidney disease; Z79.01 Long term (current) use of anticoagulants; Z79.4 Long term (current) use of insulin; Z79.899 Other long term (current) drug therapy; Z88.2 Allergy status to sulfonamides; Z88.1 Allergy status to other antibiotic agents; Z87.891 Personal history of nicotine dependence; Z95.0 Presence of cardiac pacemaker; Z96.41 Presence of insulin pump (external) (internal); Z99.2 Dependence on renal dialysis; Z90.49 Acquired absence of other specified parts of digestive tract; Z82.49 Family history of ischemic heart disease and other diseases of the circulatory system; Z82.5 Family history of asthma and other chronic lower respiratory diseases; Z83.3 Family history of diabetes mellitus
CPT/HCPCS: 90945 ×3; 96376 ×4; 96365; 96375 ×2; 99285; 51798; 36415; 97530; 97162; 97535; 97166; 80053 ×3; 80074; 85025 ×2; 85027; 85610; 85730; 81001; 87086; 87077; 87186; 87635; 71046; 76705; 72125; 70450; 74177; G0378 ×3; S4990; J2270 ×3; J0696; A4722 ×3; C9113

== ENCOUNTER 2021-03-14 14:24 | Emergency (ER) | payer MEDICARE ==
--- NOTE | 2021-03-14 15:40 | XR ---
EXAMINATION TYPE: XR forearm RT DATE OF EXAM: 03/14/2021 CLINICAL HISTORY: Pain after falling injury. TECHNIQUE: Two views of the right forearm are obtained. COMPARISON: None. FINDINGS: Kake osseous structures are demineralized. There is no acute fracture or dislocation seen in the right radius or ulna. Suspect old healed fracture deformity distal radius with osseous overla p but no suspicious linear lucency. The right elbow and wrist joints appear within normal limits. Mo derate to severe mid to distal arterial vascular calcification with mild to moderate diffuse subcutan eous edema. IMPRESSION: There is no acute fracture or dislocation seen in the right radius or ulna.
--- NOTE | 2021-03-14 15:44 | XR ---
Right humerus HISTORY: Trauma and pain 2 views the right humerus submitted and correlated to prior right shoulder 06/04/2018 There is open reduction internal fixation change for proximal right humeral fracture, there is persis tent lucency despite improved alignment. Question some periosteal new bone formation along the proxim al right humerus, there is cortical thickening suggestive of prior trauma with fracture healing. Prox imal portion of the intramedullary moses is cephalad to the proximal extent of the humerus. Screws in t he diaphysis of the humerus breech the cortex. There is bone resorption along the distal aspect of th e nail in the humerus. There is no dislocation. Generator s present in the right pectoral region. Pamela gical clips are present in the right upper quadrant. Seventh rib laterally and possibly eighth rib sh ow cortical regularity. No evident pneumothorax or pleural effusion. IMPRESSION: No acute fracture or dislocation is evident within the humerus, there may be pseudarthros is, periosteal new bone formation is questioned. Possible rib fractures, correlate for point martínez ss.
--- NOTE | 2021-03-14 16:22 | ED ---
General Adult HPI - General Chief complaint: Extremity Injury, Upper Stated complaint: Pain in arm Time Seen by Provider: 03/14/21 15:35 Source: patient Mode of arrival: ambulatory Limitations: no limitations - History of Present Illness Initial comments: 76-year-old male presents to the emergency room for a chief complaint of right upper arm pain. Patient states that he was leaning down to get a pill a couple days ago and fell onto the right shoulder. States his upper arm hurts. Patient states he had a previous surgery on this and wants to make sure he did not fracture it again. Patient also complaining of forearm pain. Patient states he has an appointment with his orthopedic surgeon in a few days but he couldn't sleep last night because he kept turning onto his shoulder.Patient has no other complaints at this time including shortness of breath, chest pain, abdominal pain, nausea or vomiting, headache, or visual changes. - Related Data Home Medications Medication Instructions Recorded Confirmed Insulin Aspart (For Pump) [NovoLOG 0.01 unit SQ-PUMP CONTINUOUS 02/20/17 11/30/20 (For Pump)] Maureen-Chris 1 tab PO AC-SUPPER 06/17/18 11/30/20 Atorvastatin Calcium [Lipitor] 40 mg PO AC-SUPPER 02/16/20 11/30/20 Donepezil [Aricept] 5 mg PO HS 02/16/20 11/30/20 Omalizumab [Xolair] 150 mg SQ Q30D 02/16/20 11/30/20 QUEtiapine FUMARATE [SEROquel] 25 mg PO HS 02/16/20 11/30/20 Tamsulosin [Flomax] 0.4 mg PO DAILY@1200 02/16/20 11/30/20 Apixaban [Eliquis] 2.5 mg PO BID@1200,2100 02/19/20 11/30/20 Latanoprost/Pf [Latanoprost 0.005% 1 drop BOTH EYES HS 02/19/20 11/30/20 Eye Drop] Nicotine Polacrilex [Nicorette] 4 mg BUCCAL Q2H PRN 02/19/20 11/30/20 Calcium Acetate [PhosLo] 1,334 mg PO BID-W/MEALS 11/26/20 11/30/20 Calcium Acetate [PhosLo] 667 mg PO HS 11/26/20 11/30/20 Cinacalcet HCl [Sensipar] 90 mg PO MOWEFR 11/26/20 11/30/20 DULoxetine HCL [Cymbalta] 60 mg PO DAILY 11/26/20 11/30/20 Insulin NPH Human Isophane 6 unit SQ HS 11/26/20 11/30/20 [Novolin N Flexpen] Sodium Bicarbonate (Unknown 1 tab PO HS 11/26/20 11/30/20 Strength) calcitrioL [Calcitriol] 1 mcg PO MO 11/26/20 11/30/20 traZODone HCL 50 mg PO HS 11/30/20 11/30/20 Previous Rx's Medication Instructions Recorded Montelukast [Singulair] 10 mg PO HS tab 05/10/18 Midodrine [ProAmatine] 5 mg PO AC-TID #90 tab 11/28/20 Cefuroxime [Ceftin] 250 mg PO BID 7 Days #14 tab 12/02/20 Pantoprazole [Protonix] 40 mg PO AC-BRKFST tablet. 12/02/20 clonazePAM 0.5 mg PO DAILY #2 tab 12/02/20 clonazePAM [KlonoPIN] 1 mg PO HS #3 tab 12/02/20 traMADol HCl [Ultram] 50 mg PO TID #9 tab 12/02/20 HYDROcodone/APAP 5-325MG [[place] 1 tab PO Q6HR PRN #10 tab 03/14/21 5-325] Allergies Allergy/AdvReac Type Severity Reaction Status Date / Time Sulfa (Sulfonamide Allergy Rash/Hives Verified 03/14/21 15:02 Antibiotics) levofloxacin [From Levaquin] AdvReac Rash/Hives Verified 03/14/21 15:02 Review of Systems ROS Statement: Those systems with pertinent positive or pertinent negative responses have been documented in the HPI. ROS Other: All systems not noted in ROS Statement are negative. Past Medical History Past Medical History: COPD, Diabetes Mellitus, Dialysis, Hypertension, Prostate Disorder, Renal Disease, Sleep Apnea/CPAP/BIPAP, Syncope Additional Past Medical History / Comment(s): BPH, uses CPAP, hemodialysis M-W-F History of Any Multi-Drug Resistant Organisms: None Reported Past Surgical History: Cholecystectomy, Heart Catheterization, Hernia Repair, Orthopedic Surgery, Pacemaker Additional Past Surgical History / Comment(s): L AV fistula placed on 05/29/2016 [facility], right shoulder proximal humerus repair Past Anesthesia/Blood Transfusion Reactions: No Reported Reaction Type of Cardiac Device: Permanent Pacemaker Device Placement Date:: 05/10/2018 Past Psychological History: No Psychological Hx Reported, Depression Smoking Status: Former smoker Past Alcohol Use History: Rare Past Drug Use History: None Reported - Past Family History Father History Unknown: Yes Family Medical History: Diabetes Mellitus, Myocardial Infarction ([place]) Additional Family Medical History / Comment(s): at 76 Mother History Unknown: Yes Family Medical History: Congestive Heart Failure (CHF), Diabetes Mellitus Additional Family Medical History / Comment(s): lived to be 97 Brother(s) History Unknown: Yes Family Medical History: COPD, Liver Disease Daughter(s) History Unknown: Yes General Exam Limitations: no limitations General appearance: alert, in no apparent distress Head exam: Present: atraumatic Eye exam: Present: normal appearance, PERRL, EOMI. Absent: scleral icterus, conjunctival injection ENT exam: Present: normal exam, mucous membranes moist Neck exam: Present: normal inspection, full ROM. Absent: tenderness Respiratory exam: Present: normal lung sounds bilaterally. Absent: respiratory distress, wheezes Cardiovascular Exam: Present: regular rate, normal rhythm, normal heart sounds GI/Abdominal exam: Present: soft, normal bowel sounds. Absent: distended, tenderness Extremities exam: Present: tenderness (Tenderness noted to the proximal humerus as well as proximal forearm), normal capillary refill (Capillary refill less than 2, radial pulse 2+ in the right upper extremity), other (No edema or ecchymosis noted to the proximal aspect of the right humerus. Patient does have tenderness to the proximal right forearm as well as edema.). Absent: full ROM (Patient is 45 flexion and abduction of the right shoulder. For injection of the right hand wrist and elbow.) Neurological exam: Present: alert Course Vital Signs 03/14/21 14:58 Temperature 98.2 F Pulse Rate 73 Respiratory 20 Rate Blood Pressure 117/69 O2 Sat by Pulse 95 Oximetry Medical Decision Making - Medical Decision Making X-ray of the right forearm shows no acute fracture or dislocation. There is mild to moderate diffuse subcutaneous edema noted. X-ray of the humerus shows no acute fracture or dislocation. There may be pseudoarthrosis, periosteal new bone formation is question. Possible rib fractures, correlate for point tenderness. Patient mildly tender in this area but states this is from several weeks ago when he had another fall. He denies any new pain in the area. At this time we will give patient pain medication for home. We will not give a sling at this time in order to prevent frozen shoulder. He has an appointment with his surgeon coming up in 3 days. He will return here for any worsening symptoms. Case discussed and images reviewed with Dr. Aquino Disposition Clinical Impression: Arm pain, right Disposition: HOME SELF-CARE Condition: Good Instructions (If sedation given, give patient instructions): Arm Pain (ED) Additional Instructions: Please take medication as directed. Follow up with orthopedics at your appointment. Return to the ER for any worsening symptoms. Prescriptions: HYDROcodone/APAP 5-325MG [Lester 5-325] 1 tab PO Q6HR PRN #10 tab PRN Reason: Pain Is patient prescribed a controlled substance at d/c from ED?: No Referrals: Kiel Wang DO [Primary Care Provider] - 1-2 days Time of Disposition: 16:19
[2021-03-14] MEDS ORDERED: HYDROcodone/APAP 5-325MG 1 EACH TAB PO STA (16:30)
[2021-03-14 16:35] VITALS: BP 131/64; PULSE 57; RESP 56; TEMP 98.1
== END 2021-03-14 16:35 | disposition home or self-care (01) ==
LOC: EC 14:24
DX: M79.621 Pain in right upper arm (principal); J44.9 Chronic obstructive pulmonary disease, unspecified; E11.9 Type 2 diabetes mellitus without complications; I10 Essential (primary) hypertension; Z79.4 Long term (current) use of insulin; Z79.01 Long term (current) use of anticoagulants; Z88.1 Allergy status to other antibiotic agents; Z88.2 Allergy status to sulfonamides; Z90.49 Acquired absence of other specified parts of digestive tract; Z95.0 Presence of cardiac pacemaker; Z87.891 Personal history of nicotine dependence
CPT/HCPCS: 99283

== ENCOUNTER 2021-03-28 16:38 | Emergency (ER) | payer MEDICARE ==
[2021-03-28 17:14] VITALS: TEMP 98.1
[2021-03-28] MEDS ORDERED: SODIUM CHLORIDE 0.9% 1,000 ML IV STA (17:58)
[2021-03-28 18:27] LABS: Anisocytosis Slight; Basophils # (A) 0.1 k/uL (0-0.2); Basophils % (A) 2 %; Eosinophils # (A) 0.5 k/uL (0-0.7); Eosinophils % (A) 7 %; HCT 36.3 % (39.0-53.0); HGB 12.3 gm/dL (13.0-17.5); Lymphocytes % (A) 14 %; MCH 32.2 pg (25.0-35.0); MCV 94.8 fL (80.0-100.0); Mean Platelet Volume 8.9; Monocytes # (A) 0.6 k/uL (0-1.0); Monocytes % (A) 8 %; Neutrophils % (A) 67 %; Platelet Count 270 k/uL (150-450); RBC 3.83 m/uL (4.30-5.90); RDW 16.2 % (11.5-15.5); WBC 7.5 k/uL (3.8-10.6)
[2021-03-28 18:37] LABS: Calcium 6.6 mg/dL (8.4-10.2); Magnesium 1.4 mg/dL (1.6-2.3); Potassium 3.8 mmol/L (3.5-5.1)
[2021-03-28 19:37] LABS: Appearance,Urine Turbid (Clear); Bilirubin,Urine Negative (Negative); Blood,Urine Moderate (Negative); Budding Yeast,Urine Many /hpf; Color,Urine Red; Glucose,Urine (UA) Negative (Negative); Ketones,Urine Negative (Negative); Leukocyte Esterase,Urine Large (Negative); Nitrite,Urine Negative (Negative); Protein,Urine 2+ (Negative); RBC,Urine 102 /hpf (0-5); Urobilinogen,Urine <2.0 mg/dL (<2.0); WBC,Urine >182 /hpf (0-5)
[2021-03-28 19:38] LABS: Specific Gravity,Urine 1.019 (1.001-1.035)
[2021-03-28] MEDS ORDERED: cefTRIAXone IN SWFI 1,000 MG/10 ML SYRINGE IVP STA (20:20)
--- NOTE | 2021-03-28 20:23 | ED ---
General Adult HPI - General Chief complaint: Recheck/Abnormal Lab/Rx Stated complaint: Poss Sepsis Time Seen by Provider: 03/28/21 17:24 Source: patient, family, RN notes reviewed, old records reviewed Mode of arrival: wheelchair Limitations: no limitations - History of Present Illness Initial comments: I evaluated the patient when he was placed in a room. Patient is a 76-year-old male with past medical history remarkable for ESRD on peritoneal dialy sis,pacemaker , COPD, diabetes, hypertension, prostate disease who presents emergency Department complaining of urinary tract infection. Was diagnosed at an outside medical office, and he was instructed to come to the emergency department to rule out sepsis. Patient as well as his are uncertain why sepsis was concerning. He denies any abdominal pain, chest pain, shortness of breath. He was vaccinated for Covid. Denies any cough, fevers, chills. Denies any change in his peritoneal dialysis fluid, in terms of color or amount. He has not missed any dialysis appointments. He is on insulin pump and states that his sugars have been well-controlled. Patient's states that when he has urinary tract infection, he does become more irritable which he has been as well as somewhat more tired. He otherwise has no acute complaints at this time. Patient presents for rule out severe infection in the setting of a UTI. - Related Data Home Medications Medication Instructions Recorded Confirmed Insulin Aspart (For Pump) [NovoLOG 0.01 unit SQ-PUMP CONTINUOUS 02/20/17 03/28/21 (For Pump)] Maureen-Chris 1 tab PO DAILY@1400 06/17/18 03/28/21 Atorvastatin Calcium [Lipitor] 40 mg PO HS@1700 02/16/20 03/28/21 Donepezil [Aricept] 5 mg PO HS@1700 02/16/20 03/28/21 Omalizumab [Xolair] 150 mg SQ Q30D 02/16/20 03/28/21 QUEtiapine FUMARATE [SEROquel] 25 mg PO HS@1700 02/16/20 03/28/21 Tamsulosin [Flomax] 0.4 mg PO DAILY@1200 02/16/20 03/28/21 Apixaban [Eliquis] 2.5 mg PO BID@1200,1700 02/19/20 03/28/21 Nicotine Polacrilex [Nicorette] 4 mg BUCCAL Q2H PRN 02/19/20 03/28/21 Calcium Acetate [PhosLo] 1,334 mg PO AC-TID 11/26/20 03/28/21 Cinacalcet HCl [Sensipar] 90 mg PO MOWEFR 11/26/20 03/28/21 DULoxetine HCL [Cymbalta] 60 mg PO DAILY 11/26/20 03/28/21 Insulin NPH Human Isophane 6 unit SQ HS 11/26/20 03/28/21 [Novolin N Flexpen] calcitrioL [Calcitriol] 1 mcg PO MO 11/26/20 03/28/21 traZODone HCL 50 mg PO HS@1700 11/30/20 03/28/21 Acetaminophen [Tylenol] 650 mg PO Q6H PRN 03/28/21 03/28/21 Cholecalciferol (Vitamin D3) 125 mcg PO DAILY 03/28/21 03/28/21 [Vitamin D3 (125 MCG = 5,000 IU)] Furosemide [Lasix] 40 mg PO DAILY 03/28/21 03/28/21 HYDROcodone/APAP 5-325MG [[place] 1 tab PO Q6H PRN 03/28/21 03/28/21 5-325] Lidocaine 5% Patch [Lidoderm] 1 patch TRANSDERM DAILY 03/28/21 03/28/21 Metoprolol Tartrate [Lopressor] 25 mg PO DAILY@1200 03/28/21 03/28/21 Montelukast [Singulair] 10 mg PO HS@1700 03/28/21 03/28/21 Pantoprazole [Protonix] 40 mg PO DAILY 03/28/21 03/28/21 Sodium Bicarbonate Tab 650 mg PO DAILY@1400 03/28/21 03/28/21 clonazePAM 0.5 mg PO BID 03/28/21 03/28/21 clonazePAM [KlonoPIN] 0.5 mg PO DAILY PRN 03/28/21 03/28/21 traMADol HCl [Ultram] 50 mg PO TID PRN 03/28/21 03/28/21 Previous Rx's Medication Instructions Recorded Midodrine [ProAmatine] 5 mg PO AC-TID #90 tab 11/28/20 Nitrofurantoin Monohyd/M-Cryst 100 mg PO Q12HR 10 Days #20 cap 03/28/21 [Macrobid] Allergies Allergy/AdvReac Type Severity Reaction Status Date / Time levofloxacin [From Levaquin] Allergy Rash/Hives Verified 03/28/21 19:22 Sulfa (Sulfonamide Allergy Rash/Hives Verified 03/28/21 19:22 Antibiotics) Review of Systems ROS Statement: Those systems with pertinent positive or pertinent negative responses have been documented in the HPI. Review of Systems: CONST: Denies fever EYES: Denies blurry vision ENT: Denies nasal congestion C/V: Denies Chest pain RESP: Denies shortness of breath GI: Denies abdominal pain : Denies dysuria SKIN: Denies rash. MSK: Denies joint pain. NEURO: Denies headache ROS Other: All systems not noted in ROS Statement are negative. Past Medical History Past Medical History: COPD, Diabetes Mellitus, Dialysis, Hypertension, Prostate Disorder, Renal Disease, Sleep Apnea/CPAP/BIPAP, Syncope Additional Past Medical History / Comment(s): BPH, uses CPAP, hemodialysis M-W- History of Any Multi-Drug Resistant Organisms: None Reported Past Surgical History: Cholecystectomy, Heart Catheterization, Hernia Repair, Orthopedic Surgery, Pacemaker Additional Past Surgical History / Comment(s): L AV fistula placed on 05/29/2016 [facility], right shoulder proximal humerus repair Past Anesthesia/Blood Transfusion Reactions: No Reported Reaction Type of Cardiac Device: Permanent Pacemaker Device Placement Date:: 05/10/2018 Past Psychological History: No Psychological Hx Reported, Depression Smoking Status: Former smoker Past Alcohol Use History: Rare Past Drug Use History: None Reported - Past Family History Father History Unknown: Yes Family Medical History: Diabetes Mellitus, Myocardial Infarction ([place]) Additional Family Medical History / Comment(s): at 76 Mother History Unknown: Yes Family Medical History: Congestive Heart Failure (CHF), Diabetes Mellitus Additional Family Medical History / Comment(s): lived to be 97 Brother(s) History Unknown: Yes Family Medical History: COPD, Liver Disease Daughter(s) History Unknown: Yes General Exam - General Exam Comments Initial Comments: General: Appears in no acute distress. HEAD: Normal with no signs of head trauma. EYES: PERRLA, EOMI, conjunctiva normal, no discharge. Pupils are 3 mm and equal bilaterally. ENT: Hearing grossly intact, normal oropharynx. RESPIRATORY: Clear breath sounds bilaterally. No wheezes, rales, or rhonchi. C/V: Regular rate and rhythm. S1 and S2 auscultated, no edema, peripheral pulses 2+ and intact throughout ABD: Abd is soft, nontender, nondistended. Patient has intact pretty dialysis catheter without any stranding skin changes. This on pump is intact on the abdomen without any stranding skin changes. No peritoneal signs. No rebound tenderness. No guarding. Normal abdominal exam. EXT: Normal range of motion, no obvious deformity SKIN: No rashes or lesions observed on exposed skin. NEURO: Alert and oriented 4. No focal sensory strength deficits. Limitations: no limitations Course Vital Signs 03/28/21 03/28/21 03/28/21 17:10 18:30 19:00 Temperature 98.1 F Pulse Rate 73 53 L 55 L Respiratory 19 16 19 Rate Blood Pressure 115/70 142/81 138/61 O2 Sat by Pulse 97 98 95 Oximetry 03/28/21 03/28/21 03/28/21 19:30 20:00 20:30 Temperature Pulse Rate 54 L 53 L 53 L Respiratory 18 18 18 Rate Blood Pressure 136/73 131/56 129/61 O2 Sat by Pulse 95 95 96 Oximetry Procedures - [place] Protocol (Time Out) Nurse: Twila Rasmussen Medical Decision Making - Medical Decision Making Based on the patient's presentation and physical exam, I would like to rule out the possibility of severe infection and the patient. Therefore we will obtain a screening EKG as well as basic laboratory studies and repeat urinalysis. He will be given a 1 L fluid bolus for hydration. He has no fluid restrictions. Patient was in agreement with this plan. EKG shows a normal ventricular paced rhythm for the patient. No signs of acute ischemia. Urinalysis was remarkable for hematuria with a large amount of leukocyte esterase, as well as WBCs. Patient select lites are remarkable for mild hyponatremia of 132, mild hypo-chloremia of 94, as well as an elevated BUN/creatinine the setting of ESRD. Magnesium and calcium is somewhat low in the setting of peritoneal dialysis. Patient has a normocytic anemia with a hemoglobin of 12.3. As the patient is a chronic dialysis patient, I would not correct his electrolytes at this time. Lactate is normal. I discussed the findings with the patient. Urine culture was sent. I'm concerned for a UTI. We will administer a dose of Rocephin for UTI. Patient will be given a prescription for Macrobid, as based on his prior urine culture, the bacteria was susceptible to it. There were in agreement this plan. I want him to follow up with her primary care physician. I will provide the patient with a prescription for Macrobid. I instructed the patient to follow up with their PCP in the next 3 days. I explained that the patient should return to the emergency department if they experience any worsening symptoms. Strict return precautions were discussed with the patient. The patient expressed understanding of these instructions. I answered all questions that the patient had. The patient was discharged home in fair condition with their prescriptions and follow up information. - Lab Data Result diagrams: 03/28/21 18:19 03/28/21 18:19 Lab Results 03/28/21 03/28/21 03/28/21 Range/Units 18:19 18:19 18:19 WBC 7.5 (3.8-10.6) k/uL RBC 3.83 L (4.30-5.90) m/uL Hgb 12.3 L (13.0-17.5) gm/dL Hct 36.3 L (39.0-53.0) % MCV 94.8 (80.0-100.0) fL MCH 32.2 (25.0-35.0) pg MCHC 34.0 (31.0-37.0) g/dL RDW 16.2 H (11.5-15.5) % Plt Count 270 (150-450) k/uL MPV 8.9 Neutrophils % 67 % Lymphocytes % 14 % Monocytes % 8 % Eosinophils % 7 % Basophils % 2 % Neutrophils # 5.0 (1.3-7.7) k/uL Lymphocytes # 1.0 (1.0-4.8) k/uL Monocytes # 0.6 (0-1.0) k/uL Eosinophils # 0.5 (0-0.7) k/uL Basophils # 0.1 (0-0.2) k/uL Anisocytosis Slight Sodium (137-145) mmol/L Potassium (3.5-5.1) mmol/L Chloride (98-107) mmol/L Carbon Dioxide (22-30) mmol/L Anion Gap mmol/L BUN (9-20) mg/dL Creatinine (0.66-1.25) mg/dL Est GFR (CKD-EPI)AfAm (>60 ml/min/1.73 sqM) Est GFR (CKD-EPI)NonAf (>60 ml/min/1.73 sqM) Glucose (74-99) mg/dL Plasma Lactic Acid Edmundo 1.2 (0.7-2.0) mmol/L Calcium (8.4-10.2) mg/dL Magnesium (1.6-2.3) mg/dL Urine Color Red Urine Appearance Turbid (Clear) Urine pH 7.0 (5.0-8.0) Ur Specific [place] 1.019 (1.001-1.035) Urine Protein 2+ H (Negative) Urine Glucose (UA) Negative (Negative) Urine Ketones Negative (Negative) Urine Blood Moderate H (Negative) Urine Nitrite Negative (Negative) Urine Bilirubin Negative (Negative) Urine Urobilinogen <2.0 (<2.0) mg/dL Ur Leukocyte Esterase Large H (Negative) Urine RBC 102 H (0-5) /hpf Urine WBC >182 H (0-5) /hpf Urine WBC Clumps Many H (None) /hpf Urine Yeast (Budding) Many H (None) /hpf 03/28/21 Range/Units 18:19 WBC (3.8-10.6) k/uL RBC (4.30-5.90) m/uL Hgb (13.0-17.5) gm/dL Hct (39.0-53.0) % MCV (80.0-100.0) fL MCH (25.0-35.0) pg MCHC (31.0-37.0) g/dL RDW (11.5-15.5) % Plt Count (150-450) k/uL MPV Neutrophils % % Lymphocytes % % Monocytes % % Eosinophils % % Basophils % % Neutrophils # (1.3-7.7) k/uL Lymphocytes # (1.0-4.8) k/uL Monocytes # (0-1.0) k/uL Eosinophils # (0-0.7) k/uL Basophils # (0-0.2) k/uL Anisocytosis Sodium 132 L (137-145) mmol/L Potassium 3.8 (3.5-5.1) mmol/L Chloride 94 L (98-107) mmol/L Carbon Dioxide 27 (22-30) mmol/L Anion Gap 11 mmol/L BUN 37 H (9-20) mg/dL Creatinine 8.56 H* (0.66-1.25) mg/dL Est GFR (CKD-EPI)AfAm 6 (>60 ml/min/1.73 sqM) Est GFR (CKD-EPI)NonAf 5 (>60 ml/min/1.73 sqM) Glucose 137 H (74-99) mg/dL Plasma Lactic Acid Edmundo (0.7-2.0) mmol/L Calcium 6.6 L (8.4-10.2) mg/dL Magnesium 1.4 L (1.6-2.3) mg/dL Urine Color Urine Appearance (Clear) Urine pH (5.0-8.0) Ur Specific [place] (1.001-1.035) Urine Protein (Negative) Urine Glucose (UA) (Negative) Urine Ketones (Negative) Urine Blood (Negative) Urine Nitrite (Negative) Urine Bilirubin (Negative) Urine Urobilinogen (<2.0) mg/dL Ur Leukocyte Esterase (Negative) Urine RBC (0-5) /hpf Urine WBC (0-5) /hpf Urine WBC Clumps (None) /hpf Urine Yeast (Budding) (None) /hpf - EKG Data -: EKG Interpreted by Me EKG Comments: 12-lead Electrocardiogram Interpretation Note EKG was reviewed and interpreted by myself. 12-lead ECG performed at 1813 is interpreted by me as revealing ventricular paced rhythm at a rate of 55 beats per minute. Left axis deviation. CO interval is unobtainable, QRS duration is 194ms, QTC is 554ms. [There were no ST or T wave abnormalities to suggest myocardial ischemia or injury]. [R wave progression across the precordium was sa tisfactory]. [By my interpretation this EKG is non-diagnostic for acute ischemia]. Disposition Clinical Impression: UTI (urinary tract infection), Peritoneal dialysis catheter in place, ESRD (end stage renal disease), Pacemaker ECG pattern Disposition: HOME SELF-CARE Condition: Fair Instructions (If sedation given, give patient instructions): Urinary Tract Infection in Men (ED) Prescriptions: Nitrofurantoin Monohyd/M-Cryst [Macrobid] 100 mg PO Q12HR 10 Days #20 cap Is patient prescribed a controlled substance at d/c from ED?: No Referrals: Kiel Wang DO [Primary Care Provider] - 1-2 days
[2021-03-28 21:22] VITALS: BP 129/61; PULSE 53; RESP 18
== END 2021-03-28 20:50 | disposition home or self-care (01) ==
LOC: EC 16:38
DX: N39.0 Urinary tract infection, site not specified (principal); E11.22 Type 2 diabetes mellitus with diabetic chronic kidney disease; I12.0 Hypertensive chronic kidney disease with stage 5 chronic kidney disease or end stage renal disease; N18.6 End stage renal disease; J44.9 Chronic obstructive pulmonary disease, unspecified; Z99.2 Dependence on renal dialysis; Z96.41 Presence of insulin pump (external) (internal); Z79.4 Long term (current) use of insulin; Z79.01 Long term (current) use of anticoagulants; Z88.1 Allergy status to other antibiotic agents; Z88.2 Allergy status to sulfonamides; Z90.49 Acquired absence of other specified parts of digestive tract; Z87.891 Personal history of nicotine dependence; Z79.899 Other long term (current) drug therapy
CPT/HCPCS: 99283; 96374; 96361; 36415; 93005; 80048; 83605; 83735; 85025; 81001; J0696

== ENCOUNTER 2021-04-04 05:55 | Inpatient (IN) | payer MEDICARE ==
--- NOTE | 2021-04-04 06:25 | ED ---
General Adult HPI - General Chief complaint: Fall Stated complaint: Fall Time Seen by Provider: 04/04/21 06:02 Source: patient, EMS, RN notes reviewed Mode of arrival: EMS Limitations: physical limitation - History of Present Illness Initial comments: 6-year-old male with a past medical history of COPD, hypertension, diabetes mellitus, ESRD on hemodialysis presents to the emergency room for a chief complaint of fall. Patient was walking from the bathroom back to his bedroom with his walker. States his walker caught something in his bedroom in the dark and he fell. He did hit his head. He also hurt his back. Patient states his gives him his medications and he does not think she has been putting his eliquis in his medications. He denies any other complaints. Patient has no other complaints at this time including shortness of breath, chest pain, abdominal pain, nausea or vomiting, headache, or visual changes. - Related Data Home Medications Medication Instructions Recorded Confirmed Insulin Aspart (For Pump) [NovoLOG 0.01 unit SQ-PUMP CONTINUOUS 02/20/17 04/04/21 (For Pump)] Maureen-Chris 1 tab PO DAILY@1400 06/17/18 04/04/21 Atorvastatin Calcium [Lipitor] 40 mg PO HS@1700 02/16/20 04/04/21 Donepezil [Aricept] 5 mg PO DIRECTED 02/16/20 04/04/21 Omalizumab [Xolair] 150 mg SQ Q30D 02/16/20 04/04/21 QUEtiapine FUMARATE [SEROquel] 25 mg PO DIRECTED 02/16/20 04/04/21 Tamsulosin [Flomax] 0.4 mg PO DIRECTED 02/16/20 04/04/21 Apixaban [Eliquis] 2.5 mg PO DIRECTED 02/19/20 04/04/21 Nicotine Polacrilex [Nicorette] 4 mg BUCCAL Q2H PRN 02/19/20 04/04/21 Calcium Acetate [PhosLo] 1,334 mg PO AC-TID 11/26/20 04/04/21 Cinacalcet HCl [Sensipar] 90 mg PO MOWEFR 11/26/20 04/04/21 DULoxetine HCL [Cymbalta] 60 mg PO DAILY 11/26/20 04/04/21 Insulin NPH Human Isophane 6 unit SQ HS PRN 11/26/20 04/04/21 [Novolin N Flexpen] calcitrioL [Calcitriol] 1 mcg PO MO 11/26/20 04/04/21 traZODone HCL 50 mg PO DIRECTED 11/30/20 04/04/21 Acetaminophen [Tylenol] 650 mg PO Q6H PRN 03/28/21 04/04/21 Cholecalciferol (Vitamin D3) 125 mcg PO DIRECTED 03/28/21 04/04/21 [Vitamin D3 (125 MCG = 5,000 IU)] Furosemide [Lasix] 40 mg PO DIRECTED 03/28/21 04/04/21 HYDROcodone/APAP 5-325MG [[place] 1 tab PO Q6H PRN 03/28/21 04/04/21 5-325] Lidocaine 5% Patch [Lidoderm] 1 patch TRANSDERM DIRECTED 03/28/21 04/04/21 Metoprolol Tartrate [Lopressor] 25 mg PO DIRECTED 03/28/21 04/04/21 Montelukast [Singulair] 10 mg PO HS@1700 03/28/21 04/04/21 Pantoprazole [Protonix] 40 mg PO DIRECTED 03/28/21 04/04/21 Sodium Bicarbonate Tab 650 mg PO DAILY@1400 03/28/21 04/04/21 clonazePAM 0.5 mg PO DIRECTED 03/28/21 04/04/21 traMADol HCl [Ultram] 50 mg PO DIRECTED PRN 03/28/21 04/04/21 Midodrine [ProAmatine] 5 mg PO DIRECTED 04/04/21 04/04/21 Previous Rx's Medication Instructions Recorded Nitrofurantoin Monohyd/M-Cryst 100 mg PO Q12HR 10 Days #20 cap 03/28/21 [Macrobid] Allergies Allergy/AdvReac Type Severity Reaction Status Date / Time levofloxacin [From Levaquin] Allergy Rash/Hives Verified 04/04/21 06:04 Sulfa (Sulfonamide Allergy Rash/Hives Verified 04/04/21 06:04 Antibiotics) Review of Systems ROS Statement: Those systems with pertinent positive or pertinent negative responses have been documented in the HPI. ROS Other: All systems not noted in ROS Statement are negative. Past Medical History Past Medical History: COPD, Diabetes Mellitus, Dialysis, Hypertension, Prostate Disorder, Renal Disease, Sleep Apnea/CPAP/BIPAP, Syncope Additional Past Medical History / Comment(s): BPH, uses CPAP, hemodialysis M-W-F History of Any Multi-Drug Resistant Organisms: None Reported Past Surgical History: Cholecystectomy, Heart Catheterization, Hernia Repair, Orthopedic Surgery, Pacemaker Additional Past Surgical History / Comment(s): L AV fistula placed on 05/29/2016 [facility], right shoulder proximal humerus repair Past Anesthesia/Blood Transfusion Reactions: No Reported Reaction Type of Cardiac Device: Permanent Pacemaker Device Placement Date:: 05/10/2018 Past Psychological History: Depression Smoking Status: Former smoker Past Alcohol Use History: None Reported Past Drug Use History: None Reported - Past Family History Father History Unknown: Yes Family Medical History: Diabetes Mellitus, Myocardial Infarction ([place]) Additional Family Medical History / Comment(s): at 76 Mother History Unknown: Yes Family Medical History: Congestive Heart Failure (CHF), Diabetes Mellitus Additional Family Medical History / Comment(s): lived to be 97 Brother(s) History Unknown: Yes Family Medical History: COPD, Liver Disease Daughter(s) History Unknown: Yes General Exam Limitations: physical limitation General appearance: alert, in no apparent distress Head exam: Present: atraumatic Eye exam: Present: normal appearance, PERRL, EOMI. Absent: scleral icterus, conjunctival injection ENT exam: Present: normal exam, mucous membranes moist Neck exam: Present: normal inspection, full ROM. Absent: tenderness Respiratory exam: Present: normal lung sounds bilaterally. Absent: respiratory distress Cardiovascular Exam: Present: regular rate, normal rhythm, normal heart sounds GI/Abdominal exam: Present: soft, normal bowel sounds. Absent: distended, tenderness Back exam: Present: vertebral tenderness (minimal lumbar spine tenderness, no thoracic spine tenderness). Absent: CVA tenderness (R), CVA tenderness (L), other (no external signs of trauma) Neurological exam: Present: alert Course Vital Signs 04/04/21 04/04/21 04/04/21 05:56 07:04 08:14 Temperature 97.8 F Pulse Rate 60 61 61 Respiratory 18 18 18 Rate Blood Pressure 116/54 125/59 122/60 O2 Sat by Pulse 96 95 95 Oximetry - Reevaluation(s) Reevaluation #1: 11/02/21 I did speak with [facility]. He stated that although patient had seen Dr. Melendez for surgery on his arm in 2019 and this was a new problem and should be given to [facility]. I discussed the case with Dr. Blount given possibility of trauma admission. Does not feel that this is a trauma admission at this time given the patient is more so being admitted for confusion, weakness, failure to thrive. The second point Dr. Tongson on consult as needed. Dr. Pool did accept admission 1140 Medical Decision Making - Medical Decision Making Patient had a mechanical fall earlier today. CT brain shows no acute hemorrhage or midline shift. CT cervical spine shows no fracture or dislocation evident. CT lumbar spine shows suspected nondisplaced acute transverse fracture through the L1 vertebrae. No posterior retropulsion or significant height loss identified. We also need to rule out lytic metastatic disease or multiple myeloma. Tended to ambulate patient he did become very lightheaded. Patient's did come to the hospital and stated that patient is confused at home. He is being treated for urinary tract infection however the culture was negative. She states the patient is getting up and out of bed and falling and she cannot offer enough help for him. - Lab Data Result diagrams: 04/04/21 10:06 04/04/21 10:06 Lab Results 04/04/21 04/04/21 Range/Units 10:06 10:06 WBC 14.5 H (3.8-10.6) k/uL RBC 3.93 L (4.30-5.90) m/uL Hgb 12.6 L (13.0-17.5) gm/dL Hct 38.0 L (39.0-53.0) % MCV 96.7 (80.0-100.0) fL MCH 32.0 (25.0-35.0) pg MCHC 33.1 (31.0-37.0) g/dL RDW 15.5 (11.5-15.5) % Plt Count 225 (150-450) k/uL MPV 8.8 Neutrophils % 83 % Lymphocytes % 7 % Monocytes % 6 % Eosinophils % 3 % Basophils % 1 % Neutrophils # 12.0 H (1.3-7.7) k/uL Lymphocytes # 1.0 (1.0-4.8) k/uL Monocytes # 0.9 (0-1.0) k/uL Eosinophils # 0.4 (0-0.7) k/uL Basophils # 0.1 (0-0.2) k/uL Sodium 131 L (137-145) mmol/L Potassium 3.1 L (3.5-5.1) mmol/L Chloride 93 L (98-107) mmol/L Carbon Dioxide 26 (22-30) mmol/L Anion Gap 12 mmol/L BUN 26 H (9-20) mg/dL Creatinine 8.19 H* (0.66-1.25) mg/dL Est GFR (CKD-EPI)AfAm 7 (>60 ml/min/1.73 sqM) Est GFR (CKD-EPI)NonAf 6 (>60 ml/min/1.73 sqM) Glucose 195 H (74-99) mg/dL Calcium 6.6 L (8.4-10.2) mg/dL Total Bilirubin 1.8 H (0.2-1.3) mg/dL AST 42 (17-59) U/L ALT 21 (4-49) U/L Alkaline Phosphatase 265 H (38-126) U/L Total Protein 6.0 L (6.3-8.2) g/dL Albumin 2.9 L (3.5-5.0) g/dL Disposition Clinical Impression: Weakness, Altered mental status, L1 vertebral fracture, Fall Disposition: ADMITTED IP TO THIS HOSP Is patient prescribed a controlled substance at d/c from ED?: No Referrals: Kiel Wang DO [Primary Care Provider] - 1-2 days Time of Disposition: 11:44
[2021-04-04] MEDS ORDERED: MORPHINE SULFATE 4 MG/ML SYRINGE IM STA (07:03)
--- NOTE | 2021-04-04 07:55 | CT ---
EXAMINATION TYPE: CT lumbar spine wo con DATE OF EXAM: 04/04/2021 7:25 AM COMPARISON: CT abdomen and pelvis November 30, 2020 and back through 2016 HISTORY: Fall injury with low back pain CT DLP: 1536.2 mGycm Automated exposure control for dose reduction was used. Unenhanced CT of the lumbar spine was performed. Bone and soft tissue window settings are submitted as well as coronal and sagittal reconstructions. There are 5 lumbar type vertebra redemonstrated. Osseous structures are demineralized which is noted lower sensitivity. Persistent scattered suspicious lucent or lytic lesions for reference superior L3 vertebra and inferior L3 level sagittal image 23. Additional lesions inferior L4 and superior L5 leve l sagittal image 26 and inferior L1 level sagittal image 23 are present. They all appear endplate bas ed however no significant disc space narrowing. Subtle horizontal lucency through the upper mid aspec t of the L1 vertebra seen best on coronal images is felt present. No posterior retropulsion seen. Emmanuel tebral body heights and disc space heights are maintained. Mild to moderate multilevel anterior spurr ing is present. Axial images showed [id number] broad disc bulges at L2-L3 and L3-L4 levels effacing anterior th ecal sac. Mild to moderate facet arthropathy and ligamenta flava hypertrophy L3-L4 level. Axial image s at L4-L5 level show moderate to advanced facet arthropathy at L4-L5 level. There is moderate to adv anced broad disc bulge. There is effacement of the anterior and posterior lateral thecal sac. Axial i mages at L5-S1 level show mild/moderate facet arthropathy with small central disc protrusion. Neural foramina are mild to moderately narrowed bilaterally at L4-L5 level. Moderate calcified plaque of the visualized abdominal aorta is only partially imaged on this study. T here is small vessel vascular calcification suggesting long-standing chronic medical renal disease as there is additional cortical thinning and visualized portion of both kidneys. IMPRESSION: Demineralization with suspected nondisplaced acute transverse fracture through the L1 emmanuel tebra. No posterior retropulsion or significant height loss identified. Scattered lucent lesions coul d reflect subchondral cystic change but given lack of significance disc space narrowing of etiologies such as lytic metastatic disease or product of multiple myeloma needs to be considered. Correlate cl inically.
--- NOTE | 2021-04-04 08:24 | CT ---
EXAMINATION TYPE: CT brain cspine wo con DATE OF EXAM: 04/04/2021 COMPARISON: CT brain and cervical spine November 30, 2020 HISTORY: Fall injury with headache and neck pain. CT DLP: 1654.2 mGycm. Automated Exposure Control for Dose Reduction was Utilized. TECHNIQUE: CT scan of the head and cervical spine are performed without contrast. FINDINGS: There is no acute intracranial hemorrhage or midline shift identified. Mild ventricular a nd sulcal prominence redemonstrated. Mild to moderate low attenuation in the periventricular white ma tter redemonstrated. Scleral calcification bilateral globes again seen. The calvarium is intact. The globes are intact and the visualized sinuses are clear. Cervical spine is visualized in its entirety from C1 through upper thoracic levels and demonstrates s table and satisfactory alignment without evidence of acute fracture or dislocation. Prevertebral sof t tissue appears within normal limits. The C1-C2 articulation is within normal limits on the coronal images. Vertebral body heights are maintained. Moderate disc space narrowing and spurring C3-C4 and C5-C6 levels. Posterior spur disc complexes efface the anterior thecal sac at these levels. Axial images show uncovertebral facet degenerative changes causing bilateral neural foraminal narrowi ng at C3-C4 and C5-C6 levels. Moderate calcified plaque bilateral carotid bulb levels is redemonstrat ed. No apical pneumothorax seen bilaterally. IMPRESSION: 1. There is no acute fracture or dislocation evident in the cervical spine. 2. No acute intracranial hemorrhage or midline shift is seen. No significant change from most recent trauma CT.
[2021-04-04 10:42] LABS: Basophils # (A) 0.1 k/uL (0-0.2); Basophils % (A) 1 %; Eosinophils # (A) 0.4 k/uL (0-0.7); Eosinophils % (A) 3 %; HGB 12.6 gm/dL (13.0-17.5); Lymphocytes % (A) 7 %; MCHC 33.1 g/dL (31.0-37.0); MCV 96.7 fL (80.0-100.0); Mean Platelet Volume 8.8; Monocytes # (A) 0.9 k/uL (0-1.0); Monocytes % (A) 6 %; Neutrophils % (A) 83 %; Platelet Count 225 k/uL (150-450); RBC 3.93 m/uL (4.30-5.90); RDW 15.5 % (11.5-15.5); WBC 14.5 k/uL (3.8-10.6)
[2021-04-04 11:04] LABS: Albumin 2.9 g/dL (3.5-5.0); Calcium 6.6 mg/dL (8.4-10.2); Potassium 3.1 mmol/L (3.5-5.1); Total Bilirubin 1.8 mg/dL (0.2-1.3)
--- NOTE | 2021-04-04 11:32 | XR ---
EXAMINATION TYPE: XR chest 2V DATE OF EXAM: 04/04/2021 COMPARISON: Chest x-ray 11/30/2020 HISTORY: Weakness and headache, abnormal chest x-ray TECHNIQUE: Frontal and lateral views of the chest are obtained. FINDINGS: Generator is present in the right pectoral region, lead courses into the right ventricle. There is evidence of old granulomatous disease. There is no focal air space opacity, pleural effusion , or pneumothorax seen. The cardiac silhouette size is stable, enlarged, the aorta is dense. The o sseous structures are intact. Cervical clips present in the upper abdomen. IMPRESSION: No acute cardiopulmonary process.
[2021-04-04] MEDS ORDERED: ONDANSETRON 4 MG/2 ML VIAL IVP PRN (11:35)
[2021-04-04] MEDS ORDERED: NALOXONE 0.4 MG/ML 1 ML VIAL IV PRN (11:35)
[2021-04-04] MEDS ORDERED: NICOTINE GUM (POLACRILEX) 2 MG GUM BUCCAL PRN (11:40)
[2021-04-04] MEDS ORDERED: ACETAMINOPHEN TAB 325 MG TAB PO PRN (11:40)
[2021-04-04] MEDS ORDERED: clonazePAM 1 MG TAB PO SCH (11:45)
[2021-04-04] MEDS ORDERED: OMALIZUMAB 150 MG/ML SYRINGE SQ SCH (11:45)
[2021-04-04] MEDS ORDERED: FUROSEMIDE 40 MG TAB PO SCH (11:45)
[2021-04-04] MEDS ORDERED: METOPROLOL TARTRATE 25 MG TAB PO SCH (11:45)
[2021-04-04] MEDS ORDERED: LIDOCAINE 5% PATCH TOPICAL SCH (11:45)
[2021-04-04] MEDS ORDERED: POTASSIUM CHLORIDE ER 20 MEQ TAB.ER PO STA (12:52)
[2021-04-04] MEDS: PANTOPRAZOLE 40 MG TABLET PO SCH (14:04)
[2021-04-04] MEDS: TAMSULOSIN 0.4 MG CAP.ER.24H PO SCH (14:04)
[2021-04-04] MEDS: APIXABAN 2.5 MG TABLET PO SCH ×2 (14:04→21:35)
[2021-04-04 14:05] LABS: Glucose,Whole Blood 148 mg/dL (75-99)
[2021-04-04] MEDS: SODIUM BICARBONATE TAB 650 MG TAB PO SCH (14:05)
[2021-04-04] MEDS: CHOLECALCIFEROL 25 MCG (1000 IU) TABLET PO SCH (14:05)
[2021-04-04] MEDS: FOLIC ACID-VIT B COMPLEX-VIT C 1 CAP PO SCH (14:06)
[2021-04-04] MEDS: MORPHINE SULFATE 4 MG/ML SYRINGE IV PRN ×2 (14:08→21:40)
[2021-04-04] MEDS: INSULIN ASPART (NovoLOG) 100 UNIT/ML VIAL SQ SCH ×3 (14:15→21:33)
--- NOTE | 2021-04-04 14:39 | P.HPIM ---
History of Present Illness H&P Date: 04/04/21 HISTORY OF PRESENT ILLNESS This is a 76-year-old patient of Dr. Wang with a past medical history significant for COPD, diabetes mellitus2, and stage renal disease on CAPD, hypertension, chronic atrial fibrillation, sick sinus syndrome status post single-chamber permanent pacemaker, BPH, hyperlipidemia, gastroesophageal reflux disease, recurrent depression, vitamin D deficiency, obstructive sleep apnea. Patient has had previous admission in November of this year after mechanical fall and syncopal episode, was discharge to [facility] and was transitioned to hemodialysis. Patient recently treated for urinary tract infection was seen in the emergency center. He had a fall at home today. His stated that he was dizzy for the past week not quite mentally with it more confused. Patient is stating that he was using his walker and he lost his balance. Patient has been brought into the emergency center for evaluation and patient was found to be afebrile, heart rate 60, blood pressure 116/54, pulse ox 96%. WBC 14.5, hemoglobin 12.6, pulse count 225. Sodium 131, potassium 3.1, chloride 93, CO2 26, BUN 26 creatinine 8.19, blood sugar 195. Calcium 6.6. Total bilirubin 1.8. AST 42, ALT 21, alkaline phosphatase 265. Coronavirus PCR not detected. CAT scan of the brain and cervical spine revealed no acute fracture or dislocation of the cervical spine. No acute intracranial hemorrhage or midline shift. CAT scan of the lumbar spine revealed suspected nondisplaced acute transverse fracture through the L1 vertebra. Scattered lucent lesions could reflect subchondral cystic change etiologies as lytic metastatic disease or product of multiple myeloma. Chest x-ray reveals congestive changes. Patient seen today in the emergency center waiting for a bed on the [facility] floor, consult with nephrology. REVIEW OF SYSTEMS Constitutional: No fever, no chills, no night sweats. No weight change. Reports weakness, fatigue or lethargy. No daytime sleepiness. EENT: No headache. No blurred vision or double vision, no loss of vision. No loss of Hearing, no ringing in the ears, no dizziness. No nasal drainage or congestion. No epistaxis. No sore throat. Lungs: No shortness of breath, cough, no sputum production. No wheezing. Cardiovascular: No chest pain, no lower extremity edema. No palpitations. No paroxysmal nocturnal dyspnea. No orthopnea. No lightheadedness or dizziness. No syncopal episodes. Abdominal: No abdominal pain. No nausea, vomiting. No diarrhea. No constipation. No bloody or tarry stools.. No loss of appetite. CAPD. Genitourinary: No dysuria, increased frequency, urgency. No urinary retention. Musculoskeletal: No myalgias. Reports muscle weakness, reports gait dysfunction, reports frequent falls. Reports back pain. No neck pain. Integumentary: Reports abrasions and ecchymosis, no lesions. No rash or pru ritus. No unusual bruising. No change in hair or nails. Neurologic: No aphasia. No facial droop. No change in mentation. No head injury. No headache. No paralysis. No paresthesia. Psychiatric: No depression. No anxiety. No mood swings. Endocrine: No abnormal blood sugars. No weight change. No excessive sweating or thirst. No cold intolerance. SOCIAL HISTORY Patient was smoked from age 17 and quit in 2018 he has smoked one pack a day. Patient denies alcohol marijuana or illicit drug use. He lives at home with his . 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 Patient performs CAPD at home. Utilizes a walker. FAMILY HISTORY Patient has 1 brother that from cirrhosis of the liver and one with history of hypertension and heart disease. PHYSICAL EXAMINATION Gen: This is a 76-year-old obese male. He is resting on stretcher and appears to be comfortable and in no acute distress. HEENT: Head is atraumatic, normocephalic. Pupils equal, round. Sclerae is anicteric. NECK: Supple. No JVD. No lymphadenopathy. No thyromegaly. LUNGS: Clear to auscultation. No wheezes or rhonchi. No intercostal retractions. HEART: Regular rate and rhythm. Systolic murmur. ABDOMEN: Soft. Bowel sounds are present. No masses. No tenderness. EXTREMITIES: No pedal edema. No calf tenderness. Multiple areas of ecchymosis on extremities. NEUROLOGICAL: Patient is awake, alert and oriented x3. Cranial nerves 2 through 12 are grossly intact. ASSESSMENT AND PLAN 1. MechanicalWith transverse fracture of L1. Patient to be admitted to the [facility] floor, consult with orthopedics, PT and OT, social work for probable subacute rehab. 2. End-stage renal disease on CAPD. Consult with nephrology. If patient needs subacute rehab, most likely will need to transition to HD. Patient does have f istula. Continue PhosLo, calcitriol, Nephrocaps, sodium bicarb, cinacalcer HCL 3. Recent treatment for urinary tract infection. Patient completed course of antibiotics. 4. Chronic atrial fibrillation. Continue eliquis, Lopressor 25 mg as directed 5. Diabetes mellitus type II, insulin requiring. Patient to manage on an insulin pump 6. COPD. Continue Singulair 10 mg by mouth at bedtime 7. Hypertension, stable. Continue Lopressor as needed. 8. BPH. Continue Flomax 0.4 mg 9. Obstructive sleep apnea. Continue CPAP. 10. Hyperlipidemia. Atorvastatin 40 mg 11. Chronic kidney disease mineral bone disorder. Continue PhosLo 667 mg 3x daily, Sensipar 90 mg on Saturday, calcitriol 1 g Mondays. 12. Sick sinus syndrome status post single-chamber permanent pacemaker. 13. Recurrent depression. Continue Cymbalta 60 mg daily, Seroquel 25 mg at bedtime, trazodone 50 mg at bedtime. 14. Dementia. Continue Aricept 5 mg at bedtime. 15. Gastroesophageal reflux disease and GI prophylaxis. Protonix. 16. DVT prophylaxis. Eliquis. Status: Full code Patient will be admitted to the hospital for a minimum of 2 night stay. DISCHARGE PLAN To be determined. Patient might be best treated at subacute rehab. Social work consult for possible rehab. Pt, OT Impression and plan of care have been directed as dictated by the signing physician. Jyoti Peraza nurse practitioner acting as scribe for signing physician. Past Medical History Past Medical History: COPD, Diabetes Mellitus, Dialysis, Hypertension, Prostate Disorder, Renal Disease, Sleep Apnea/CPAP/BIPAP, Syncope Additional Past Medical History / Comment(s): BPH, uses CPAP, hemodialysis M-W- History of Any Multi-Drug Resistant Organisms: None Reported Past Surgical History: Cholecystectomy, Heart Catheterization, Hernia Repair, Orthopedic Surgery, Pacemaker Additional Past Surgical History / Comment(s): L AV fistula placed on 05/29/2016 [facility], right shoulder proximal humerus repair Past Anesthesia/Blood Transfusion Reactions: No Reported Reaction Type of Cardiac Device: Permanent Pacemaker Device Placement Date:: 05/10/2018 Past Psychological History: Depression Smoking Status: Former smoker Past Alcohol Use History: None Reported Past Drug Use History: None Reported - Past Family History Father History Unknown: Yes Family Medical History: Diabetes Mellitus, Myocardial Infarction ([place]) Additional Family Medical History / Comment(s): at 76 Mother History Unknown: Yes Family Medical History: Congestive Heart Failure (CHF), Diabetes Mellitus Additional Family Medical History / Comment(s): lived to be Brother(s) History Unknown: Yes Family Medical History: COPD, Liver Disease Daughter(s) History Unknown: Yes Medications and Allergies Home Medications Medication Instructions Recorded Confirmed Type Insulin Aspart (For Pump) [NovoLOG 0.01 unit SQ-PUMP CONTINUOUS 02/20/17 04/04/21 History (For Pump)] Maureen-Chris 1 tab PO DAILY@1400 06/17/18 04/04/21 History Atorvastatin Calcium [Lipitor] 40 mg PO HS@1700 02/16/20 04/04/21 History Donepezil [Aricept] 5 mg PO DIRECTED 02/16/20 04/04/21 History Omalizumab [Xolair] 150 mg SQ Q30D 02/16/20 04/04/21 History QUEtiapine FUMARATE [SEROquel] 25 mg PO DIRECTED 02/16/20 04/04/21 History Tamsulosin [Flomax] 0.4 mg PO DIRECTED 02/16/20 04/04/21 History Apixaban [Eliquis] 2.5 mg PO DIRECTED 02/19/20 04/04/21 History Nicotine Polacrilex [Nicorette] 4 mg BUCCAL Q2H PRN 02/19/20 04/04/21 History Calcium Acetate [PhosLo] 1,334 mg PO AC-TID 11/26/20 04/04/21 History Cinacalcet HCl [Sensipar] 90 mg PO MOWEFR 11/26/20 04/04/21 History DULoxetine HCL [Cymbalta] 60 mg PO DAILY 11/26/20 04/04/21 History Insulin NPH Human Isophane 6 unit SQ HS PRN 11/26/20 04/04/21 History [Novolin N Flexpen] calcitrioL [Calcitriol] 1 mcg PO MO 11/26/20 04/04/21 History traZODone HCL 50 mg PO DIRECTED 11/30/20 04/04/21 History Acetaminophen [Tylenol] 650 mg PO Q6H PRN 03/28/21 04/04/21 History Cholecalciferol (Vitamin D3) 125 mcg PO DIRECTED 03/28/21 04/04/21 History [Vitamin D3 (125 MCG = 5,000 IU)] Furosemide [Lasix] 40 mg PO DIRECTED 03/28/21 04/04/21 History HYDROcodone/APAP 5-325MG [[place] 1 tab PO Q6H PRN 03/28/21 04/04/21 History 5-325] Lidocaine 5% Patch [Lidoderm] 1 patch TRANSDERM DIRECTED 03/28/21 04/04/21 History Metoprolol Tartrate [Lopressor] 25 mg PO DIRECTED 03/28/21 04/04/21 History Montelukast [Singulair] 10 mg PO HS@1700 03/28/21 04/04/21 History Nitrofurantoin Monohyd/M-Cryst 100 mg PO Q12HR 10 Days #20 cap 03/28/21 04/04/21 Rx [Macrobid] Pantoprazole [Protonix] 40 mg PO DIRECTED 03/28/21 04/04/21 History Sodium Bicarbonate Tab 650 mg PO DAILY@1400 03/28/21 04/04/21 History clonazePAM 0.5 mg PO DIRECTED 03/28/21 04/04/21 History traMADol HCl [Ultram] 50 mg PO DIRECTED PRN 03/28/21 04/04/21 History Midodrine [ProAmatine] 5 mg PO DIRECTED 04/04/21 04/04/21 History Allergies Allergy/AdvReac Type Severity Reaction Status Date / Time levofloxacin [From Levaquin] Allergy Rash/Hives Verified 04/04/21 06:04 Sulfa (Sulfonamide Allergy Rash/Hives Verified 04/04/21 06:04 Antibiotics) Physical Exam Vitals: Vital Signs Temp Pulse Resp BP Pulse Ox 04/04/21 08:14 61 18 122/60 95 04/04/21 07:04 61 18 125/59 95 04/04/21 05:56 97.8 F 60 18 116/54 96 Intake and Output 04/03/21 04/04/21 04/04/21 22:59 06:59 14:59 Other: Weight 104.326 kg Results CBC & Chem 7: 04/04/21 10:06 04/04/21 10:06 Labs: Abnormal Lab Results - Last 24 Hours (Table) 04/04/21 04/04/21 Range/Units 10:06 10:06 WBC 14.5 H (3.8-10.6) k/uL RBC 3.93 L (4.30-5.90) m/uL Hgb 12.6 L (13.0-17.5) gm/dL Hct 38.0 L (39.0-53.0) % Neutrophils # 12.0 H (1.3-7.7) k/uL Sodium 131 L (137-145) mmol/L Potassium 3.1 L (3.5-5.1) mmol/L Chloride 93 L (98-107) mmol/L BUN 26 H (9-20) mg/dL Creatinine 8.19 H* (0.66-1.25) mg/dL Glucose 195 H (74-99) mg/dL Calcium 6.6 L (8.4-10.2) mg/dL Total Bilirubin 1.8 H (0.2-1.3) mg/dL Alkaline Phosphatase 265 H (38-126) U/L Total Protein 6.0 L (6.3-8.2) g/dL Albumin 2.9 L (3.5-5.0) g/dL
[2021-04-04] MEDS ORDERED: traZODone HCL 50 MG TAB PO SCH (14:45)
[2021-04-04] MEDS ORDERED: MIDODRINE 5 MG TAB PO SCH (14:45)
[2021-04-04] MEDS ORDERED: QUEtiapine 25 MG TAB PO SCH (14:45)
[2021-04-04] MEDS ORDERED: DONEPEZIL 5 MG TAB PO SCH (14:45)
[2021-04-04] MEDS ORDERED: Insulin Aspart (For Pump) 100 UNIT/ML VIAL SQ-PUMP SCH (14:45)
--- NOTE | 2021-04-04 15:22 | CONS ---
CONSULTATION REASON FOR CONSULTATION: End-stage renal disease. HISTORY OF PRESENT ILLNESS: Patient is a 76-year-old male with end-stage renal disease, maintained on CAPD. He was admitted to the hospital with history of multiple falls, weakness and with plans to go to inpatient rehab temporarily. Patient was on hemodialysis previously and does have a left arm AV fistula which can be used when he transitions to hemodialysis temporarily while at inpatient rehab, since we are not able to do peritoneal dialysis at rehab. Patient denies fever, cough, nausea, vomiting. PAST MEDICAL HISTORY: End-stage renal disease, COPD, type 2 diabetes, BPH, obstructive sleep apnea, CKD mineral bone disorder, anemia of chronic disease. PAST SURGICAL HISTORY: Cholecystectomy cardiac catheterization, hernia repair, left arm AV fistula, right shoulder surgery, pacemaker placement. SOCIAL HISTORY: Patient is a former smoker. No history of drug abuse or alcohol abuse. REVIEW OF SYSTEMS: As per HPI. Other systems negative. MEDICATIONS: Medications included insulin, Lipitor, Aricept, Xolair, Seroquel, Eliquis, Flomax, PhosLo, Sensipar, Cymbalta, calcitriol, Tylenol, vitamin D3, Singulair, Protonix, sodium bicarb, Ultram, midodrine, Macrobid. ALLERGIES: ALLERGIES include LEVAQUIN, SULFA. PHYSICAL EXAMINATION: Patient is comfortable, awake. He is not in any acute distress. Alert and oriented x3. Blood pressure was 122/60, heart rate 61 per minute. He is afebrile. EXAMINATION OF THE HEART: S1 and S2. EXAMINATION OF LUNGS: Decreased breath sounds at the bases. Abdomen is soft, distended, non-tender. LABS: Sodium 131, potassium 3.1, BUN 26, creatinine 8.1, hemoglobin 12.6 g/dL. ASSESSMENT: 1. End-stage renal disease, maintained on peritoneal dialysis. Patient will be switching to temporary hemodialysis while in rehab. He has a left arm AV fistula which we can use. 2. Hypokalemia associated with PD. This will be replaced. 3. Recent urinary tract infection, maintained on Macrobid prior to admission. 4. Metabolic acidosis, maintained on oral sodium bicarb. 5. Weakness, generalized debility and increased falls. No fractures noted. Patient will be going for rehabilitation temporarily. 6. Chronic kidney disease mineral bone disorder, maintained on Sensipar, Rocaltrol and PhosLo. PLAN: Replace potassium. Hemodialysis in a.m. Hold PD. Continue with the other renal medications. Thank you for this consultation. Will continue to follow the patient with you during his hospitalization. LESLIE / STARLAN: [id number] /
[2021-04-04 17:13] LABS: Glucose,Whole Blood 157 mg/dL (75-99)
[2021-04-04] MEDS ORDERED: CALCIUM ACETATE 667 MG TAB PO SCH (17:30)
[2021-04-04] MEDS: CALCIUM ACETATE 667 MG TAB PO SCH (18:19)
[2021-04-04] MEDS: ATORVASTATIN 40 MG TAB PO SCH (18:22)
[2021-04-04] MEDS: MONTELUKAST 10 MG TAB PO SCH (18:22)
--- NOTE | 2021-04-04 18:48 | P.CNOR ---
History of Present Illness - [facility] Consult date: 04/04/21 Requesting physician: Shayan Bennett Consult reason: other (L1 fracture) History of present illness: Patient is a 76-year-old male presenting the hospital status post fall. Patient does have a history significant for COPD, diabetes, ESRD, hypertension, A. fib. Patient says he is walking to his bedroom on the bathroom using his walker when he thinks is walker caught something and then he fell. Patient says he did hit his head commands back. He says immediately began to feel back pain. Patient denies any other trauma/pain. Patient says he has had right shoulder surgery in the past, but he does not know what was done. Patient denies any other previous orthopedic surgical history. Patient denies chest pain, fever, sore scrub, nausea, hip headache, change in vision, loss of bowel/bladder control. Past Medical History Past Medical History: COPD, Diabetes Mellitus, Dialysis, Hypertension, Prostate Disorder, Renal Disease, Sleep Apnea/CPAP/BIPAP, Syncope Additional Past Medical History / Comment(s): BPH, uses CPAP, hemodialysis M-W- History of Any Multi-Drug Resistant Organisms: None Reported Past Surgical History: Cholecystectomy, Heart Catheterization, Hernia Repair, Orthopedic Surgery, Pacemaker Additional Past Surgical History / Comment(s): L AV fistula placed on 05/29/2016 [facility], right shoulder proximal humerus repair Past Anesthesia/Blood Transfusion Reactions: No Reported Reaction Type of Cardiac Device: Permanent Pacemaker Device Placement Date:: 05/10/2018 Past Psychological History: Depression Smoking Status: Former smoker Past Alcohol Use History: None Reported Past Drug Use History: None Reported - Past Family History Father History Unknown: Yes Family Medical History: Diabetes Mellitus, Myocardial Infarction (NH) Additional Family Medical History / Comment(s): at 76 Mother History Unknown: Yes Family Medical History: Congestive Heart Failure (CHF), Diabetes Mellitus Additional Family Medical History / Comment(s): lived to be 97 Brother(s) History Unknown: Yes Family Medical History: COPD, Liver Disease Daughter(s) History Unknown: Yes Medications and Allergies Home Medications Medication Instructions Recorded Confirmed Type Insulin Aspart (For Pump) [NovoLOG 0.01 unit SQ-PUMP CONTINUOUS 02/20/17 04/04/21 History (For Pump)] Maureen-Chris 1 tab PO DAILY@1400 06/17/18 04/04/21 History Atorvastatin Calcium [Lipitor] 40 mg PO HS@1700 02/16/20 04/04/21 History Donepezil [Aricept] 5 mg PO DIRECTED 02/16/20 04/04/21 History Omalizumab [Xolair] 150 mg SQ Q30D 02/16/20 04/04/21 History QUEtiapine FUMARATE [SEROquel] 25 mg PO DIRECTED 02/16/20 04/04/21 History Tamsulosin [Flomax] 0.4 mg PO DIRECTED 02/16/20 04/04/21 History Apixaban [Eliquis] 2.5 mg PO DIRECTED 02/19/20 04/04/21 History Nicotine Polacrilex [Nicorette] 4 mg BUCCAL Q2H PRN 02/19/20 04/04/21 History Calcium Acetate [PhosLo] 1,334 mg PO AC-TID 11/26/20 04/04/21 History Cinacalcet HCl [Sensipar] 90 mg PO MOWEFR 11/26/20 04/04/21 History DULoxetine HCL [Cymbalta] 60 mg PO DAILY 11/26/20 04/04/21 History Insulin NPH Human Isophane 6 unit SQ HS PRN 11/26/20 04/04/21 History [Novolin N Flexpen] calcitrioL [Calcitriol] 1 mcg PO MO 11/26/20 04/04/21 History traZODone HCL 50 mg PO DIRECTED 11/30/20 04/04/21 History Acetaminophen [Tylenol] 650 mg PO Q6H PRN 03/28/21 04/04/21 History Cholecalciferol (Vitamin D3) 125 mcg PO DIRECTED 03/28/21 04/04/21 History [Vitamin D3 (125 MCG = 5,000 IU)] Furosemide [Lasix] 40 mg PO DIRECTED 03/28/21 04/04/21 History HYDROcodone/APAP 5-325MG [Vida 1 tab PO Q6H PRN 03/28/21 04/04/21 History 5-325] Lidocaine 5% Patch [Lidoderm] 1 patch TRANSDERM DIRECTED 03/28/21 04/04/21 History Metoprolol Tartrate [Lopressor] 25 mg PO DIRECTED 03/28/21 04/04/21 History Montelukast [Singulair] 10 mg PO HS@1700 03/28/21 04/04/21 History Nitrofurantoin Monohyd/M-Cryst 100 mg PO Q12HR 10 Days #20 cap 03/28/21 04/04/21 Rx [Macrobid] Pantoprazole [Protonix] 40 mg PO DIRECTED 03/28/21 04/04/21 History Sodium Bicarbonate Tab 650 mg PO DAILY@1400 03/28/21 04/04/21 History clonazePAM 0.5 mg PO DIRECTED 03/28/21 04/04/21 History traMADol HCl [Ultram] 50 mg PO DIRECTED PRN 03/28/21 04/04/21 History Midodrine [ProAmatine] 5 mg PO DIRECTED 04/04/21 04/04/21 History Allergies Allergy/AdvReac Type Severity Reaction Status Date / Time levofloxacin [From Levaquin] Allergy Rash/Hives Verified 04/04/21 06:04 Sulfa (Sulfonamide Allergy Rash/Hives Verified 04/04/21 06:04 Antibiotics) Physical Examination Inspection: Negative for any ecchymosis, open fractures, open wounds, erythema, nodules. Sensation: Sensation is equal, symmetric, bilaterally intact at the upper and lower extremities Palpation: Significant tenderness to palpation at the lower thoracic/upper lumbar region midline. Nontender to palpation throughout the rest of exam Range of motion: Patient has full range of motion bilateral upper extremities and wrist flexion/extension and elbow flexion/tension shoulder abduction /internalexternal rotation. Patient has full range of motion in plantar and dorsiflexion, knee flexion/extension and hip flexion/extension and internal and external rotation bilaterally in lower extremities Motor: Surface Water Manager strength 5/5 bilaterally. 5/5 in resisted elbow flexion/extension and resisted internal/external rotation abduction shoulders. 5/5 in resisted knee flexion/extension and hip flexion/extension and internal and external rotation of lower extremities. 5/5 in resisted plantarflexion and dorsiflexion ankles bilaterally. Neurovascular status: Refill below 3 seconds bilaterally in upper extremity digits. Radial pulses intact, bilaterally 2+ Special tests: Negative Homans bilaterally; negative Taylor's bilaterally Results - Labs Labs: Abnormal Lab Results - Last 24 Hours (Table) 04/04/21 04/04/21 04/04/21 Range/Units 10:06 10:06 14:03 WBC 14.5 H (3.8-10.6) k/uL RBC 3.93 L (4.30-5.90) m/uL Hgb 12.6 L (13.0-17.5) gm/dL Hct 38.0 L (39.0-53.0) % Neutrophils # 12.0 H (1.3-7.7) k/uL Sodium 131 L (137-145) mmol/L Potassium 3.1 L (3.5-5.1) mmol/L Chloride 93 L (98-107) mmol/L BUN 26 H (9-20) mg/dL Creatinine 8.19 H* (0.66-1.25) mg/dL Glucose 195 H (74-99) mg/dL POC Glucose (mg/dL) 148 H (75-99) mg/dL Calcium 6.6 L (8.4-10.2) mg/dL Total Bilirubin 1.8 H (0.2-1.3) mg/dL Alkaline Phosphatase 265 H (38-126) U/L Total Protein 6.0 L (6.3-8.2) g/dL Albumin 2.9 L (3.5-5.0) g/dL H & H 04/04/21 Range/Units 10:06 Hgb 12.6 L (13.0-17.5) gm/dL Hct 38.0 L (39.0-53.0) % Result Diagrams: 04/04/21 10:06 04/04/21 10:06 Assessment and Plan Assessment: 1. L1 transverse vertebral fracture 2. Multiple medical comorbidities Plan: 1. L1 transverse vertebral fracture - images have been reviewed in my attending, Dr. Ordonez. At this time we do not recommend any urgent/emergent orthopedic surgical intervention. I have ordered the TLSO brace to help with stabilization. At this time we recommend PT/OT as well as patient follow up in the outpatient setting for further evaluation. 2. Appreciate medical management 3. Appreciate consult 4. Pain management - Vida 5. GI prophylaxis - Protonix 6. DVT prophylaxis - Eliquis 7. PT/OT - weightbearing as tolerated with walker. Use brace while up and about Time with Patient: Less than 30
[2021-04-04 20:54] LABS: Glucose,Whole Blood 118 mg/dL (75-99)
[2021-04-04] MEDS: traZODone HCL 50 MG TAB PO SCH (21:36)
[2021-04-04] MEDS: QUEtiapine 25 MG TAB PO SCH (21:36)
[2021-04-05 00:20] LABS: Glucose,Whole Blood 80 mg/dL (75-99)
[2021-04-05 01:05] LABS: Glucose,Whole Blood 107 mg/dL (75-99)
[2021-04-05] MEDS: traMADol 50 MG TAB PO PRN (03:04)
[2021-04-05 03:17] LABS: Glucose,Whole Blood 85 mg/dL (75-99)
[2021-04-05 07:47] LABS: Glucose,Whole Blood 52 mg/dL (75-99)
[2021-04-05 08:16] LABS: Glucose,Whole Blood 66 mg/dL (75-99)
[2021-04-05] MEDS: DULoxetine HCL 60 MG CAPSULE.DR PO SCH (08:21)
[2021-04-05] MEDS: clonazePAM 0.5 MG TAB PO SCH (08:21)
[2021-04-05] MEDS: CHOLECALCIFEROL 25 MCG (1000 IU) TABLET PO SCH (08:21)
[2021-04-05] MEDS: APIXABAN 2.5 MG TABLET PO SCH ×2 (08:21→21:46)
[2021-04-05] MEDS: CALCIUM ACETATE 667 MG TAB PO SCH ×3 (08:22→17:25)
[2021-04-05] MEDS: FUROSEMIDE 40 MG TAB PO SCH (08:22)
[2021-04-05] MEDS: PANTOPRAZOLE 40 MG TABLET PO SCH (08:22)
[2021-04-05] MEDS: CINACALCET 30 MG TAB PO SCH (08:22)
[2021-04-05] MEDS: METOPROLOL TARTRATE 25 MG TAB PO SCH (08:22)
[2021-04-05] MEDS: MIDODRINE 5 MG TAB PO SCH ×2 (08:23→17:26)
[2021-04-05] MEDS: INSULIN ASPART (NovoLOG) 100 UNIT/ML VIAL SQ SCH ×4 (08:23→21:47)
[2021-04-05] MEDS: HYDROcodone/APAP 5-325MG 1 EACH TAB PO PRN ×2 (08:29→17:33)
[2021-04-05 08:33] LABS: Glucose,Whole Blood 70 mg/dL (75-99)
[2021-04-05] MEDS: TAMSULOSIN 0.4 MG CAP.ER.24H PO SCH (11:27)
[2021-04-05] MEDS: DIALYSIS (PERIT 1.5%) 2,500 ML 37.5 G/2,500 ML BAG INTRAPERIT SCH ×3 (11:37→23:54)
[2021-04-05 11:41] LABS: Appearance,Urine Turbid (Clear); Bacteria,Urine Many /hpf; Bilirubin,Urine Negative (Negative); Blood,Urine Moderate (Negative); Color,Urine Light Red; Glucose,Urine (UA) Negative (Negative); Ketones,Urine Negative (Negative); Leukocyte Esterase,Urine Large (Negative); Mucus,Urine Occasional /hpf; Nitrite,Urine Negative (Negative); PH, Urine 7.5 (5.0-8.0); Protein,Urine 2+ (Negative); RBC,Urine 53 /hpf (0-5); Urobilinogen,Urine <2.0 mg/dL (<2.0); WBC,Urine >182 /hpf (0-5)
[2021-04-05] MEDS: MORPHINE SULFATE 4 MG/ML SYRINGE IV PRN (11:43)
--- NOTE | 2021-04-05 11:53 | PN ---
PROGRESS NOTE Patient is seen for followup for end-stage renal disease. He was admitted with a history of falls and weakness and plan is for inpatient rehab temporarily. Patient will be switched to temporary hemodialysis while in rehab. I will maintain him on peritoneal dialysis for now, as he has significant aneurysms on his AV fistula and we will have it accessed by the dialysis staff at the outpatient dialysis unit, as they are familiar with his arm. On examination today, blood pressure 147/71, heart rate 71 per minute. He is afebrile. EXAMINATION OF THE HEART: S1 and S2. EXAMINATION OF LUNGS: Bilateral breath sounds are heard. Abdomen is soft, non-tender. Examination of lower extremities shows no significant edema. 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 Labs are not available from today. ASSESSMENT: 1. End-stage renal disease, on peritoneal dialysis. Will switch to temporary hemodialysis while at rehab. Continue with PD over here. Patient has large AV fistula with aneurysms. He has had no trouble accessing the fistula previously. 2. Hypokalemia, status post replacement. 3. Chronic kidney disease mineral bone disorder. 4. Generalized debility and history of falls with plans for temporary inpatient rehab. PLAN: Continue with PD for now. Will switch to hemodialysis upon discharge. MMODL / IJN: [id number] /
[2021-04-05 11:54] LABS: Specific Gravity,Urine 1.017 (1.001-1.035)
[2021-04-05 12:22] LABS: Glucose,Whole Blood 119 mg/dL (75-99)
[2021-04-05] MEDS: FOLIC ACID-VIT B COMPLEX-VIT C 1 CAP PO SCH (14:15)
[2021-04-05] MEDS: SODIUM BICARBONATE TAB 650 MG TAB PO SCH (14:15)
[2021-04-05] MEDS: MONTELUKAST 10 MG TAB PO SCH (17:25)
[2021-04-05] MEDS: ATORVASTATIN 40 MG TAB PO SCH (17:25)
[2021-04-05 17:39] LABS: Glucose,Whole Blood 196 mg/dL (75-99)
[2021-04-05 20:21] LABS: Glucose,Whole Blood 221 mg/dL (75-99)
[2021-04-05] MEDS: DONEPEZIL 5 MG TAB PO SCH (21:46)
[2021-04-05] MEDS: QUEtiapine 25 MG TAB PO SCH (21:47)
[2021-04-05] MEDS: traZODone HCL 50 MG TAB PO SCH (21:47)
[2021-04-06 02:04] LABS: Glucose,Whole Blood 154 mg/dL (75-99)
[2021-04-06] MEDS: DIALYSIS (PERIT 1.5%) 2,500 ML 37.5 G/2,500 ML BAG INTRAPERIT SCH ×3 (05:45→17:53)
[2021-04-06 07:43] LABS: Glucose,Whole Blood 179 mg/dL (75-99)
--- NOTE | 2021-04-06 08:04 | P.PN ---
Subjective Progress Note Date: 04/05/21 HISTORY OF PRESENT ILLNESS This is a 76-year-old patient of Dr. Wang with a past medical history significant for COPD, diabetes mellitus2, and stage renal disease on CAPD, hyp ertension, chronic atrial fibrillation, sick sinus syndrome status post single- chamber permanent pacemaker, BPH, hyperlipidemia, gastroesophageal reflux disease, recurrent depression, vitamin D deficiency, obstructive sleep apnea. Patient has had previous admission in November of this year after mechanical fall and syncopal episode, was discharge to [facility] and was transitioned to hemodialysis. Patient recently treated for urinary tract infection was seen in the emergency center. He had a fall at home today. His stated that he was dizzy for the past week not quite mentally with it more confused. Patient is stating that he was using his walker and he lost his balance. Patient has been brought into the emergency center for evaluation and patient was found to be afebrile, heart rate 60, blood pressure 116/54, pulse ox 96%. WBC 14.5, hemoglobin 12.6, pulse count 225. Sodium 131, potassium 3.1, chloride 93, CO2 26, BUN 26 creatinine 8.19, blood sugar 195. Calcium 6.6. Total bilir ubin 1.8. AST 42, ALT 21, alkaline phosphatase 265. Coronavirus PCR not detected. CAT scan of the brain and cervical spine revealed no acute fracture or dislocation of the cervical spine. No acute intracranial hemorrhage or midline shift. CAT scan of the lumbar spine revealed suspected nondisplaced acute transverse fracture through the L1 vertebra. Scattered lucent lesions could reflect subchondral cystic change etiologies as lytic metastatic disease or product of multiple myeloma. Chest x-ray reveals congestive changes. Patient seen today in the emergency center waiting for a bed on the [facility] floor, consult with nephrology. 04/05: Yesterday, patient underwent hemodialysis, Dr. Michael is planning for CAPD today. Patient has been seen by orthopedics and plan is for TLSO brace and case management is ordering. He can be weightbearing as tolerated. Regarding Aricept, patient apparently has not been taking it since September but he has obvious dementia and we will resume this. Patient blood sugar dropped low and he is currently off his insulin pump and on Humalog scale for now. Patient has been afebrile, heart rate 71, blood pressure 147/71, pulse ox 90% on room air. Patient will be working with PT and OT and discharge planning is currently to [facility]. REVIEW OF SYSTEMS Constitutional: No fever, no chills, no night sweats. No weight change. Re ports weakness, fatigue or lethargy. No daytime sleepiness. EENT: No headache. No blurred vision or double vision, no loss of vision. No loss of Hearing, no ringing in the ears, no dizziness. No nasal drainage or congestion. No epistaxis. No sore throat. Lungs: No shortness of breath, cough, no sputum production. No wheezing. Cardiovascular: No chest pain, no lower extremity edema. No palpitations. No paroxysmal nocturnal dyspnea. No orthopnea. No lightheadedness or dizziness. No syncopal episodes. Abdominal: No abdominal pain. No nausea, vomiting. No diarrhea. No constipation. No bloody or tarry stools.. No loss of appetite. CAPD. Genitourinary: No dysuria, increased frequency, urgency. No urinary retention. Musculoskeletal: No myalgias. Reports muscle weakness, reports gait dysfunction, reports frequent falls. Reports back pain. No neck pain. Integumentary: Reports abrasions and ecchymosis, no lesions. No rash or pruritus. No unusual bruising. No change in hair or nails. Neurologic: No aphasia. No facial droop. No change in mentation. No head injury. No headache. No paralysis. No paresthesia. Psychiatric: No depression. No anxiety. No mood swings. Endocrine: Noted abnormal blood sugars. No weight change. PHYSICAL EXAMINATION Gen: This is a 76-year-old obese male. He is resting in bed and appears to be comfortable and in no acute distress. HEENT: Head is atraumatic, normocephalic. Pupils equal, round. Sclerae is anicteric. NECK: Supple. No JVD. No lymphadenopathy. No thyromegaly. LUNGS: Clear to auscultation. No wheezes or rhonchi. No intercostal retractions. HEART: Regular rate and rhythm. Systolic murmur. ABDOMEN: Soft. Bowel sounds are present. No masses. No tenderness. EXTREMITIES: No pedal edema. No calf tenderness. Multiple areas of ecchymosis on extremities. NEUROLOGICAL: Patient is awake, alert and oriented to person and place. Cranial nerves 2 through 12 are grossly intact. ASSESSMENT AND PLAN 1. Mechanical fall With transverse fracture of L1. [facility], consult with orthopedics appreciated. Weightbearing as to lerated, PT and OT, social work for subacute rehab at [facility]. 2. End-stage renal disease on CAPD. Consult with nephrology. If patient needs subacute rehab, most likely will need to transition to HD. Patient does have fistula. Continue PhosLo, calcitriol, Nephrocaps, sodium bicarb, cinacalcer HCL 3. Recent treatment for urinary tract infection. Patient completed course of antibiotics. Patient will be started on ceftriaxone. 4. Chronic atrial fibrillation. Continue eliquis, Lopressor 25 mg as directed 5. Diabetes mellitus type II, insulin requiring. Patient to manage on an insu manuelito pump 6. COPD. Continue Singulair 10 mg by mouth at bedtime 7. Hypertension, stable. Continue Lopressor as needed. 8. BPH. Continue Flomax 0.4 mg 9. Obstructive sleep apnea. Continue CPAP. 10. Hyperlipidemia. Atorvastatin 40 mg 11. Chronic kidney disease mineral bone disorder. Continue PhosLo 667 mg 3x daily, Sensipar 90 mg on Saturday, calcitriol 1 g Mondays. 12. Sick sinus syndrome status post single-chamber permanent pacemaker. 13. Recurrent depression. Continue Cymbalta 60 mg daily, Seroquel 25 mg at bedtime, trazodone 50 mg at bedtime. 14. Dementia. Continue Aricept 5 mg at bedtime. 15. Gastroesophageal reflux disease and GI prophylaxis. Protonix. 16. DVT prophylaxis. Eliquis. Status: Full code DISCHARGE PLAN [facility] for subacute rehab. Social work consult for possible rehab. Pt, OT Impression and plan of care have been directed as dictated by the signing physician. Jyoti Peraza nurse practitioner acting as scribe for signing physician. Objective - Vital Signs Vital signs: Vital Signs Temp 99.6 F 04/05/21 05:09 Pulse 71 04/05/21 05:09 Resp 16 04/05/21 05:09 BP 147/71 04/05/21 05:09 Pulse Ox 90 L 04/05/21 05:09 Intake & Output 04/04/21 04/05/21 04/05/21 18:59 06:59 18:59 Intake Total 540 Balance 540 Weight 104.326 kg Intake: Oral 540 Other: Voiding Method Urinal Urinal # Voids 0 # Bowel Movements 0 - Labs CBC & Chem 7: 04/04/21 10:06 04/04/21 10:06 Labs: Abnormal Lab Results - Last 24 Hours (Table) 04/04/21 04/04/21 04/04/21 Range/Units 10:06 10:06 14:03 WBC 14.5 H (3.8-10.6) k/uL RBC 3.93 L (4.30-5.90) m/uL Hgb 12.6 L (13.0-17.5) gm/dL Hct 38.0 L (39.0-53.0) % Neutrophils # 12.0 H (1.3-7.7) k/uL Sodium 131 L (137-145) mmol/L Potassium 3.1 L (3.5-5.1) mmol/L Chloride 93 L (98-107) mmol/L BUN 26 H (9-20) mg/dL Creatinine 8.19 H* (0.66-1.25) mg/dL Glucose 195 H (74-99) mg/dL POC Glucose (mg/dL) 148 H (75-99) mg/dL Calcium 6.6 L (8.4-10.2) mg/dL Total Bilirubin 1.8 H (0.2-1.3) mg/dL Alkaline Phosphatase 265 H (38-126) U/L Total Protein 6.0 L (6.3-8.2) g/dL Albumin 2.9 L (3.5-5.0) g/dL 04/04/21 04/04/21 04/05/21 Range/Units 17:11 20:53 01:03 WBC (3.8-10.6) k/uL RBC (4.30-5.90) m/uL Hgb (13.0-17.5) gm/dL Hct (39.0-53.0) % Neutrophils # (1.3-7.7) k/uL Sodium (137-145) mmol/L Potassium (3.5-5.1) mmol/L Chloride (98-107) mmol/L BUN (9-20) mg/dL Creatinine (0.66-1.25) mg/dL Glucose (74-99) mg/dL POC Glucose (mg/dL) 157 H 118 H 107 H (75-99) mg/dL Calcium (8.4-10.2) mg/dL Total Bilirubin (0.2-1.3) mg/dL Alkaline Phosphatase (38-126) U/L Total Protein (6.3-8.2) g/dL Albumin (3.5-5.0) g/dL 04/05/21 04/05/21 04/05/21 Range/Units 07:43 08:14 08:32 WBC (3.8-10.6) k/uL RBC (4.30-5.90) m/uL Hgb (13.0-17.5) gm/dL Hct (39.0-53.0) % Neutrophils # (1.3-7.7) k/uL Sodium (137-145) mmol/L Potassium (3.5-5.1) mmol/L Chloride (98-107) mmol/L BUN (9-20) mg/dL Creatinine (0.66-1.25) mg/dL Glucose (74-99) mg/dL POC Glucose (mg/dL) 52 L 66 L 70 L (75-99) mg/dL Calcium (8.4-10.2) mg/dL Total Bilirubin (0.2-1.3) mg/dL Alkaline Phosphatase (38-126) U/L Total Protein (6.3-8.2) g/dL Albumin (3.5-5.0) g/dL
[2021-04-06] MEDS: CALCIUM ACETATE 667 MG TAB PO SCH ×3 (08:50→17:13)
[2021-04-06] MEDS: PANTOPRAZOLE 40 MG TABLET PO SCH (08:51)
[2021-04-06] MEDS: INSULIN ASPART (NovoLOG) 100 UNIT/ML VIAL SQ SCH ×4 (08:52→20:05)
[2021-04-06] MEDS: FUROSEMIDE 40 MG TAB PO SCH (09:03)
[2021-04-06] MEDS: CHOLECALCIFEROL 25 MCG (1000 IU) TABLET PO SCH (09:03)
[2021-04-06] MEDS: METOPROLOL TARTRATE 25 MG TAB PO SCH (09:03)
[2021-04-06] MEDS: clonazePAM 0.5 MG TAB PO SCH (09:03)
[2021-04-06] MEDS: APIXABAN 2.5 MG TABLET PO SCH ×2 (09:03→20:05)
[2021-04-06] MEDS: DULoxetine HCL 60 MG CAPSULE.DR PO SCH (09:03)
[2021-04-06] MEDS: MIDODRINE 5 MG TAB PO SCH ×2 (09:05→17:12)
[2021-04-06] MEDS: HYDROcodone/APAP 5-325MG 1 EACH TAB PO PRN ×2 (09:07→17:11)
[2021-04-06 11:22] LABS: Glucose,Whole Blood 164 mg/dL (75-99)
[2021-04-06] MEDS: traMADol 50 MG TAB PO PRN (11:35)
[2021-04-06] MEDS: TAMSULOSIN 0.4 MG CAP.ER.24H PO SCH (11:36)
--- NOTE | 2021-04-06 12:54 | PN ---
PROGRESS NOTE Patient is seen for followup for end-stage renal disease. He is currently awake. Denies any significant complaints. Patient is tolerating the peritoneal dialysis very well. The plan is to switch to hemodialysis upon discharge. On examination today, blood pressure 116/61, heart rate 54 per minute. He is afebrile. EXAMINATION OF THE HEART: S1 and S2. EXAMINATION OF LUNGS: Decreased breath sounds at the bases. Abdomen is soft, non-tender. Examination of lower extremities shows no evidence of edema. MACHINE OPERATOR HOP WORKER EXAM: Grossly intact. ASSESSMENT: 1. End-stage renal disease, on peritoneal dialysis. Patient will be switched over to hemodialysis post discharge. He has an AV fistula. 2. Pyuria. Rule out UTI. Urine culture is pending. Maintained on antibiotics. 3. Chronic kidney disease mineral bone disorder, maintained on Sensipar, Rocaltrol and PhosLo. PLAN: Continue with current PD and switch to outpatient hemodialysis post discharge. MMODL / IJN: [id number] /
--- NOTE | 2021-04-06 13:46 | P.PN ---
Subjective Progress Note Date: 04/06/21 Principal diagnosis: 1. L1 transverse vertebral fracture Patient was seen at bedside this morning lying supine in bed. Patient was able to respond to questions albeit half asleep. Patient states he is still having back pain. However, patient says he did get up yesterday and sit in chair with back brace. Patient denies chest pain, fever, shortness breath, nausea, vomiting, team vision, loss of bowel/bladder control. Objective - Vital Signs Vital signs: Vital Signs Temp 98.5 F 04/06/21 11:27 Pulse 54 L 04/06/21 11:27 Resp 20 04/06/21 11:27 BP 116/61 04/06/21 11:27 Pulse Ox 91 L 04/06/21 11:27 Intake & Output 04/05/21 04/06/21 04/06/21 18:59 06:59 18:59 Intake Total 100 600 Output Total 200 Balance -100 600 Intake: Intake, IV Titration 100 Amount cefTRIAXone 1 gm In 100 Sodium Chloride 0.9% 50 ml @ 100 mls/hr IVPB Q24H [facility] Rx#:[id number] Oral 600 Output: Urine 200 Straight 200 Other: Voiding Method Urinal Urinal # Voids 1 # Bowel Movements 0 0 - Exam Inspection: Negative for any ecchymosis, open fractures, open wounds, erythema, nodules. Sensation: Sensation is equal, symmetric, bilaterally intact at the upper and lower extremities Palpation: Significant tenderness to palpation at the lower thoracic/upper lumbar region midline. Nontender to palpation throughout the rest of exam Range of motion: Patient has full range of motion bilateral upper extremities and wrist flexion/extension and elbow flexion/tension shoulder abduction/internalexternal rotation. 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 5/5 in resisted elbow flexion/extension and resisted internal/external rotation abduction shoulders. 5/5 in resisted knee flexion/extension and hip flexion/extension and internal and external rotation of lower extremities. 5/5 in resisted plantarflexion and dorsiflexion ankles bilaterally. Neurovascular status: Refill below 3 seconds bilaterally in upper extremity digits. Radial pulses intact, bilaterally 2+ Special tests: Negative Homans bilaterally; negative Taylor's bilaterally - Labs CBC & Chem 7: 04/04/21 10:06 04/04/21 10:06 Labs: Abnormal Lab Results - Last 24 Hours (Table) 04/05/21 04/05/21 04/05/21 Range/Units 11:14 12:20 17:39 POC Glucose (mg/dL) 119 H 196 H (75-99) mg/dL Urine Protein 2+ H (Negative) Urine Blood Moderate H (Negative) Ur Leukocyte Esterase Large H (Negative) Urine RBC 53 H (0-5) /hpf Urine WBC >182 H (0-5) /hpf Urine WBC Clumps Many H (None) /hpf Urine Bacteria Many H (None) /hpf Urine Mucus Occasional H (None) /hpf 04/05/21 04/06/21 04/06/21 Range/Units 20:19 02:02 07:41 POC Glucose (mg/dL) 221 H 154 H 179 H (75-99) mg/dL Urine Protein (Negative) Urine Blood (Negative) Ur Leukocyte Esterase (Negative) Urine RBC (0-5) /hpf Urine WBC (0-5) /hpf Urine WBC Clumps (None) /hpf Urine Bacteria (None) /hpf Urine Mucus (None) /hpf 04/06/21 Range/Units 11:21 POC Glucose (mg/dL) 164 H (75-99) mg/dL Urine Protein (Negative) Urine Blood (Negative) Ur Leukocyte Esterase (Negative) Urine RBC (0-5) /hpf Urine WBC (0-5) /hpf Urine WBC Clumps (None) /hpf Urine Bacteria (None) /hpf Urine Mucus (None) /hpf Microbiology - Last 24 Hours (Table) 04/05/21 11:14 Urine Culture - Preliminary Urine,Catheterized Assessment and Plan Assessment: 1. L1 transverse vertebral fracture 2. Multiple medical comorbidities Plan: 1. L1 transverse vertebral fracture - images have been reviewed in my attending, Dr. Ordonez. At this time we do not recommend any urgent/emergent orthopedic surgical intervention. TLSO brace is at beside for patient to use to help with stabilization when up. At this time we recommend PT/OT as well as patient follow up in the outpatient setting for further evaluation. Please do not hesitate to contact us for any further questions. At this time orthopedics is signing off. 2. Appreciate medical management 3. Appreciate consult 4. Pain management - [place] 5. GI prophylaxis - Protonix 6. DVT prophylaxis - Eliquis 7. PT/OT - weightbearing as tolerated with walker. Use brace while up and about Time with Patient: Less than 30
--- NOTE | 2021-04-06 14:12 | P.PN ---
Subjective Progress Note Date: 04/06/21 HISTORY OF PRESENT ILLNESS This is a 76-year-old patient of Dr. Wang with a past medical history significant for COPD, diabetes mellitus2, and stage renal disease on CAPD, hyp ertension, chronic atrial fibrillation, sick sinus syndrome status post single- chamber permanent pacemaker, BPH, hyperlipidemia, gastroesophageal reflux disease, recurrent depression, vitamin D deficiency, obstructive sleep apnea. Patient has had previous admission in November of this year after mechanical fall and syncopal episode, was discharge to [facility] and was transitioned to hemodialysis. Patient recently treated for urinary tract infection was seen in the emergency center. He had a fall at home today. His stated that he was dizzy for the past week not quite mentally with it more confused. Patient is stating that he was using his walker and he lost his balance. Patient has been brought into the emergency center for evaluation and patient was found to be afebrile, heart rate 60, blood pressure 116/54, pulse ox 96%. WBC 14.5, hemoglobin 12.6, pulse count 225. Sodium 131, potassium 3.1, chloride 93, CO2 26, BUN 26 creatinine 8.19, blood sugar 195. Calcium 6.6. Total bilir ubin 1.8. AST 42, ALT 21, alkaline phosphatase 265. Coronavirus PCR not detected. CAT scan of the brain and cervical spine revealed no acute fracture or dislocation of the cervical spine. No acute intracranial hemorrhage or midline shift. CAT scan of the lumbar spine revealed suspected nondisplaced acute transverse fracture through the L1 vertebra. Scattered lucent lesions could reflect subchondral cystic change etiologies as lytic metastatic disease or product of multiple myeloma. Chest x-ray reveals congestive changes. Patient seen today in the emergency center waiting for a bed on the [facility] floor, consult with nephrology. 04/05: Yesterday, patient underwent hemodialysis, Dr. Michael is planning for CAPD today. Patient has been seen by orthopedics and plan is for TLSO brace and case management is ordering. He can be weightbearing as tolerated. Regarding Aricept, patient apparently has not been taking it since September but he has obvious dementia and we will resume this. Patient blood sugar dropped low and he is currently off his insulin pump and on Humalog scale for now. Patient has been afebrile, heart rate 71, blood pressure 147/71, pulse ox 90% on room air. Patient will be working with PT and OT and discharge planning is currently to [facility]. 04/06: Patient is denying any new complaints. Discharge plan is currently to go to [facility]. Patient's has met with hospice and does not plan to pursue that at this time. He has been afebrile, heart rate 54, blood pressure 116/61, pulse ox 91% on room air. Capillary blood glucose running between 164 and 221. Patient is followed closely by nephrology currently on CAPD and will be switched over to hemodialysis on discharge. Patient has brace at bedside to use with stabilization when out of bed. Orthopedics has signed off. We anticipate discharge to [facility] tomorrow. REVIEW OF SYSTEMS Constitutional: No fever, no chills, no night sweats. No weight change. Reports weakness, fatigue or lethargy. No daytime sleepiness. EENT: No headache. No blurred vision or double vision, no loss of vision. No loss of Hearing, no ringing in the ears, no dizziness. No nasal drainage or congestion. No epistaxis. No sore throat. Lungs: No shortness of breath, cough, no sputum production. No wheezing. Cardiovascular: Denies chest pain, no lower extremity edema. No palpitations. No paroxysmal nocturnal dyspnea. No orthopnea. No lightheadedness or dizzi ness. No syncopal episodes. Abdominal: Denies abdominal pain. No nausea, vomiting. No diarrhea. No constipation. No bloody or tarry stools.. No loss of appetite. CAPD. Genitourinary: No dysuria, increased frequency, urgency. No urinary retention. Musculoskeletal: No myalgias. Reports muscle weakness, reports gait dysfunction, reports frequent falls. Reports back pain. No neck pain. Integumentary: Reports abrasions and ecchymosis, no lesions. No rash or pruritus. No unusual bruising. No change in hair or nails. Neurologic: No aphasia. No facial droop. No change in mentation. No head injury. No headache. No paralysis. No paresthesia. Psychiatric: No depression. No anxiety. No mood swings. Endocrine: Noted abnormal blood sugars. No weight change. PHYSICAL EXAMINATION Gen: This is a 76-year-old obese male. He is resting in bed and divya ears to be comfortable and in no acute distress. HEENT: Head is atraumatic, normocephalic. Pupils equal, round. Sclerae is anicteric. NECK: Supple. No JVD. No lymphadenopathy. No thyromegaly. LUNGS: Clear to auscultation. No wheezes or rhonchi. No intercostal retractions. HEART: Regular rate and rhythm. Systolic murmur. ABDOMEN: Soft. Bowel sounds are present. No masses. No tenderness. EXTREMITIES: No pedal edema. No calf tenderness. Multiple areas of ecchymosis on extremities. NEUROLOGICAL: Patient is awake, alert and oriented to person and place. Patient is pleasantly confused. Cranial nerves 2 through 12 are grossly intact. ASSESSMENT AND PLAN 1. Mechanical fall With transverse fracture of L1. [facility], consult with orthopedics appreciated. Weightbearing as tolerated with brace, PT and OT, social work for subacute rehab at [facility]. 2. End-stage renal disease on CAPD. Consult with nephrology. If patient needs subacute rehab, most likely will need to transition to HD. Patient does have fistula. Continue PhosLo, calcitriol, Nephrocaps, sodium bicarb, cinacalcer HCL 3. Recent treatment for urinary tract infection. Patient completed course of antibiotics. Patient will be started on ceftriaxone. 4. Chronic atrial fibrillation. Continue eliquis, Lopressor 25 mg as directed 5. Diabetes mellitus type II, insulin requiring. Patient to manage on an insulin pump 6. COPD. Continue Singulair 10 mg by mouth at bedtime 7. Hypertension, stable. Continue Lopressor as needed. 8. BPH. Continue Flomax 0.4 mg 9. Obstructive sleep apnea. Continue CPAP. 10. Hyperlipidemia. Atorvastatin 40 mg 11. Chronic kidney disease mineral bone disorder. Continue PhosLo 667 mg 3x daily, Sensipar 90 mg on Saturday, calcitriol 1 g Mondays. 12. Sick sinus syndrome status post single-chamber permanent pacemaker. 13. Recurrent depression. Continue Cymbalta 60 mg daily, Seroquel 25 mg at bedtime, trazodone 50 mg at bedtime. 14. Dementia. Continue Aricept 5 mg at bedtime. 15. Gastroesophageal reflux disease and GI prophylaxis. Protonix. 16. DVT prophylaxis. Eliquis. Status: Full code DISCHARGE PLAN [facility] for subacute rehab on Saturday. Social work consult for possible rehab. Pt, OT Impression and plan of care have been directed as dictated by the signing physician. Jyoti Peraza nurse practitioner acting as scribe for signing ph ysician. Objective - Vital Signs Vital signs: Vital Signs Temp 98.6 F 04/06/21 07:15 Pulse 63 04/06/21 07:15 Resp 18 04/06/21 07:15 BP 130/67 04/06/21 07:15 Pulse Ox 94 L 04/06/21 07:15 Intake & Output 04/05/21 04/06/21 04/06/21 18:59 06:59 18:59 Intake Total 100 600 Output Total 200 Balance -100 600 Intake: Intake, IV Titration 100 Amount cefTRIAXone 1 gm In 100 Sodium Chloride 0.9% 50 ml @ 100 mls/hr IVPB Q24H [facility] Rx#:[id number] Oral 600 Output: Urine 200 Straight 200 Other: Voiding Method Urinal Urinal # Voids 1 # Bowel Movements 0 0 - Labs CBC & Chem 7: 04/04/21 10:06 04/04/21 10:06 Labs: Abnormal Lab Results - Last 24 Hours (Table) 04/05/21 04/05/21 04/05/21 Range/Units 08:14 08:32 11:14 POC Glucose (mg/dL) 66 L 70 L (75-99) mg/dL Urine Protein 2+ H (Negative) Urine Blood Moderate H (Negative) Ur Leukocyte Esterase Large H (Negative) Urine RBC 53 H (0-5) /hpf Urine WBC >182 H (0-5) /hpf Urine WBC Clumps Many H (None) /hpf Urine Bacteria Many H (None) /hpf Urine Mucus Occasional H (None) /hpf 04/05/21 04/05/21 04/05/21 Range/Units 12:20 17:39 20:19 POC Glucose (mg/dL) 119 H 196 H 221 H (75-99) mg/dL Urine Protein (Negative) Urine Blood (Negative) Ur Leukocyte Esterase (Negative) Urine RBC (0-5) /hpf Urine WBC (0-5) /hpf Urine WBC Clumps (None) /hpf Urine Bacteria (None) /hpf Urine Mucus (None) /hpf 04/06/21 04/06/21 Range/Units 02:02 07:41 POC Glucose (mg/dL) 154 H 179 H (75-99) mg/dL Urine Protein (Negative) Urine Blood (Negative) Ur Leukocyte Esterase (Negative) Urine RBC (0-5) /hpf Urine WBC (0-5) /hpf Urine WBC Clumps (None) /hpf Urine Bacteria (None) /hpf Urine Mucus (None) /hpf Microbiology - Last 24 Hours (Table) 04/05/21 11:14 Urine Culture - Preliminary Urine,Catheterized
[2021-04-06] MEDS: SODIUM BICARBONATE TAB 650 MG TAB PO SCH (14:43)
[2021-04-06] MEDS: FOLIC ACID-VIT B COMPLEX-VIT C 1 CAP PO SCH (14:43)
[2021-04-06 17:04] LABS: Glucose,Whole Blood 201 mg/dL (75-99)
[2021-04-06] MEDS: MONTELUKAST 10 MG TAB PO SCH (17:13)
[2021-04-06] MEDS: ATORVASTATIN 40 MG TAB PO SCH (17:13)
[2021-04-06 19:49] LABS: Hepatitis A Antibody IgM Nonreactive (Nonreactive); Hepatitis C IgG Antibody Nonreactive (Nonreactive)
[2021-04-06 19:58] LABS: Glucose,Whole Blood 226 mg/dL (75-99)
[2021-04-06] MEDS: QUEtiapine 25 MG TAB PO SCH (20:05)
[2021-04-06] MEDS: DONEPEZIL 5 MG TAB PO SCH (20:05)
[2021-04-06] MEDS: traZODone HCL 50 MG TAB PO SCH (20:05)
[2021-04-06 20:33] LABS: Hepatitis B Core IgM Nonreactive (Nonreactive); Hepatitis B Surface AB- Quant 19.6 mIU/mL; Hepatitis B Surface Antibody Reactive (Nonreactive); Hepatitis B Surface Antigen Nonreactive (Nonreactive)
[2021-04-07] MEDS: DIALYSIS (PERIT 1.5%) 2,500 ML 37.5 G/2,500 ML BAG INTRAPERIT SCH ×3 (00:03→12:24)
[2021-04-07 01:53] LABS: Glucose,Whole Blood 186 mg/dL (75-99)
[2021-04-07 06:38] LABS: HCT 33.4 % (39.0-53.0); HGB 10.8 gm/dL (13.0-17.5); MCH 31.9 pg (25.0-35.0); MCHC 32.3 g/dL (31.0-37.0); MCV 98.5 fL (80.0-100.0); Macrocytosis Slight; Mean Platelet Volume 9.3; Platelet Count 181 k/uL (150-450); RBC 3.39 m/uL (4.30-5.90); RDW 15.6 % (11.5-15.5); WBC 9.3 k/uL (3.8-10.6)
[2021-04-07 07:48] VITALS: TEMP 96.9
[2021-04-07 07:56] LABS: Glucose,Whole Blood 214 mg/dL (75-99)
[2021-04-07] MEDS: PANTOPRAZOLE 40 MG TABLET PO SCH (08:28)
[2021-04-07] MEDS: CALCIUM ACETATE 667 MG TAB PO SCH ×2 (08:28→12:24)
[2021-04-07] MEDS: APIXABAN 2.5 MG TABLET PO SCH (08:28)
[2021-04-07] MEDS: METOPROLOL TARTRATE 25 MG TAB PO SCH (08:28)
[2021-04-07] MEDS: DULoxetine HCL 60 MG CAPSULE.DR PO SCH (08:28)
[2021-04-07] MEDS: clonazePAM 0.5 MG TAB PO SCH (08:28)
[2021-04-07] MEDS: CHOLECALCIFEROL 25 MCG (1000 IU) TABLET PO SCH (08:28)
[2021-04-07] MEDS: FUROSEMIDE 40 MG TAB PO SCH (08:28)
[2021-04-07] MEDS: CINACALCET 30 MG TAB PO SCH (08:29)
[2021-04-07] MEDS: MIDODRINE 5 MG TAB PO SCH (08:29)
[2021-04-07] MEDS: INSULIN ASPART (NovoLOG) 100 UNIT/ML VIAL SQ SCH ×2 (08:37→12:50)
[2021-04-07] MEDS: HYDROcodone/APAP 5-325MG 1 EACH TAB PO PRN (08:38)
--- NOTE | 2021-04-07 09:44 | P.DS ---
Providers Date of admission: 04/04/21 12:20 Expected date of discharge: 04/07/21 Attending physician: Dmitriy Pool Consults: 04/04/21 11:39 Consult Physician Routine Consulting Provider: Cameron Ordonez Consult Reason/Comments: L1 fracture Do you want consulting provider notified?: Yes Consult Physician Routine Consulting Provider: Ashly Michael Consult Reason/Comments: ESRD Do you want consulting provider notified?: Yes [facility]: HISTORY OF PRESENT ILLNESS This is a 76-year-old patient of Dr. Wang with a past medical history significant for COPD, diabetes mellitus2, and stage renal disease on CAPD, hypertension, chronic atrial fibrillation, sick sinus syndrome status post single-chamber permanent pacemaker, BPH, hyperlipidemia, gastroesophageal reflux disease, recurrent depression, vitamin D deficiency, obstructive sleep apnea. Patient has had previous admission in November of this year after mechanical fall and syncopal episode, was discharge to [facility] and was transitioned to hemodialysis. Patient recently treated for urinary tract infection was seen in the emergency center. He had a fall at home today. His stated that he was dizzy for the past week not quite mentally with it more confused. Patient is stating that he was using his walker and he lost his balance. Patient has been brought into the emergency center for evaluation and patient was found to be afebrile, heart rate 60, blood pressure 116/54, pulse ox 96%. WBC 14.5, hemoglobin 12.6, pulse count 225. Sodium 131, potassium 3.1, chloride 93, CO2 26, BUN 26 creatinine 8.19, blood sugar 195. Calcium 6.6. Total bilirubin 1.8. AST 42, ALT 21, alkaline phosphatase 265. Coronavirus PCR not detected. CAT scan of the brain and cervical spine revealed no acute fracture or dislocation of the cervical spine. No acute intracranial hemorrhage or midline shift. CAT scan of the lumbar spine revealed suspected nondisplaced acute transverse fracture through the L1 vertebra. Scattered lucent lesions could reflect subchondral cystic change etiologies as lytic metastatic disease or product of multiple myeloma. Chest x-ray reveals congestive changes. Patient seen today in the emergency center waiting for a bed on the [facility], consult with nephrology. 04/05: Yesterday, patient underwent hemodialysis, Dr. Michael is planning for CAPD today. Patient has been seen by orthopedics and plan is for TLSO brace and case management is ordering. He can be weightbearing as tolerated. Regarding Aricept, patient apparently has not been taking it since September but he has obvious dementia and we will resume this. Patient blood sugar dropped low and he is currently off his insulin pump and on Humalog scale for now. Patient has been afebrile, heart rate 71, blood pressure 147/71, pulse ox 90% on room air. Patient will be working with PT and OT and discharge planning is currently to [facility]. 04/06: Patient is denying any new complaints. Discharge plan is currently to go to [facility]. Patient's has met with hospice and does not plan to pursue that at this time. He has been afebrile, heart rate 54, blood pressure 116/61, pulse ox 91% on room air. Capillary blood glucose running between 164 and 221. Patient is followed closely by nephrology currently on CAPD and will be switched over to hemodialysis on discharge. Patient has brace at bedside to use with stabilization when out of bed. Orthopedics has signed off. We anticipate discharge to [facility] tomorrow. 04/07: Dr. Michael is planning to transition patient to hemodialysis at discharge were using AV fistula. Orthopedic spine is planning on continuing PT and OT, TLSO brace and follow up outpatient. Patient has been afebrile, heart rate 86, blood pressure 149/70, pulse ox 96% on 2 L nasal cannula. Repeat blood work reveals WBC 9.3, hemoglobin 10.8, platelet count 181. Blood sugars are running between 186 and 226. Patient will be started on Levemir which may be started at the [facility]. Patient will be discharged today in stable condition. DISCHARGE DIAGNOSES 1. Mechanical fall With transverse fracture of L1. Weightbearing as tolerated w ith brace and walker, follow-up with orthopedic spine in 2 weeks. 2. End-stage renal disease on CAPD. 3. Recent treatment for urinary tract infection. 4. Chronic atrial fibrillation. 5. Diabetes mellitus type II, insulin requiring. 6. COPD. 7. Hypertension, stable. 8. BPH. 9. Obstructive sleep apnea w CPAP. 10. Hyperlipidemia. 11. Chronic kidney disease mineral bone disorder. 12. Sick sinus syndrome status post single-chamber permanent pacemaker. 13. Recurrent depression. 14. Dementia. 15. Gastroesophageal reflux disease. DISCHARGE PLAN [facility] for subacute rehab. Impression and plan of care have been directed as dictated by the signing physician. Jyoti Peraza nurse practitioner acting as scribe for signing physician. Plan - Discharge Summary New Discharge Prescriptions: New INSULIN ASPART (NovoLOG) [NovoLOG (formulary)] 0 unit SQ ACHS ml Donepezil [Aricept] 5 mg PO HS tab Metoprolol Tartrate [Lopressor] 25 mg PO DAILY tab Continue Maureen-Chris 1 tab PO DAILY@1400 Tamsulosin [Flomax] 0.4 mg PO DIRECTED QUEtiapine FUMARATE [SEROquel] 25 mg PO DIRECTED Omalizumab [Xolair] 150 mg SQ Q30D Atorvastatin Calcium [Lipitor] 40 mg PO HS@1700 Apixaban [Eliquis] 2.5 mg PO DIRECTED Nicotine Polacrilex [Nicorette] 4 mg BUCCAL Q2H PRN PRN Reason: SMOKING CESSATION Calcium Acetate [PhosLo] 1,334 mg PO AC-TID traZODone HCL 50 mg PO DIRECTED Acetaminophen [Tylenol] 650 mg PO Q6H PRN PRN Reason: Pain Lidocaine 5% Patch [Lidoderm 5% Patch] 1 patch TRANSDERM DIRECTED clonazePAM 0.5 mg PO DIRECTED #2 tab DULoxetine HCL [Cymbalta] 60 mg PO DAILY calcitrioL [Calcitriol] 1 mcg PO MO Cinacalcet HCl [Sensipar] 90 mg PO MOWEFR Cholecalciferol (Vitamin D3) [Vitamin D3 (125 MCG = 5,000 IU)] 125 mcg PO DIRECTED Sodium Bicarbonate Tab 650 mg PO DAILY@1400 Montelukast [Singulair] 10 mg PO HS@1700 Nitrofurantoin Monohyd/M-Cryst [Macrobid] 100 mg PO Q12HR 10 Days #20 cap HYDROcodone/APAP 5-325MG [Riga 5-325] 1 tab PO Q6H PRN #12 tab PRN Reason: Pain Changed Furosemide [Lasix] 40 mg PO DAILY #0 Midodrine [ProAmatine] 5 mg PO BID #0 Pantoprazole [Protonix] 40 mg PO AC-BRKFST #0 traMADol HCl [Ultram] 50 mg PO Q6HR PRN #12 tab PRN Reason: Pain Discontinued Insulin Aspart (For Pump) [NovoLOG (For Pump)] 0.01 unit SQ-PUMP CONTINUOUS Donepezil [Aricept] 5 mg PO DIRECTED Insulin NPH Human Isophane [Novolin N Flexpen] 6 unit SQ HS PRN PRN Reason: Blood Sugar - High Metoprolol Tartrate [Lopressor] 25 mg PO DIRECTED Discharge Medication List Maureen-Chris 1 tab PO DAILY@1400 06/17/18 [History] Atorvastatin Calcium [Lipitor] 40 mg PO HS@1700 02/16/20 [History] Omalizumab [Xolair] 150 mg SQ Q30D 02/16/20 [History] QUEtiapine FUMARATE [SEROquel] 25 mg PO DIRECTED 02/16/20 [History] Tamsulosin [Flomax] 0.4 mg PO DIRECTED 02/16/20 [History] Apixaban [Eliquis] 2.5 mg PO DIRECTED 02/19/20 [History] Nicotine Polacrilex [Nicorette] 4 mg BUCCAL Q2H PRN 02/19/20 [History] Calcium Acetate [PhosLo] 1,334 mg PO AC-TID 11/26/20 [History] Cinacalcet HCl [Sensipar] 90 mg PO MOWEFR 11/26/20 [History] DULoxetine HCL [Cymbalta] 60 mg PO DAILY 11/26/20 [History] calcitrioL [Calcitriol] 1 mcg PO MO 11/26/20 [History] traZODone HCL 50 mg PO DIRECTED 11/30/20 [History] Acetaminophen [Tylenol] 650 mg PO Q6H PRN 03/28/21 [History] Cholecalciferol (Vitamin D3) [Vitamin D3 (125 MCG = 5,000 IU)] 125 mcg PO DIRECTED 03/28/21 [History] Lidocaine 5% Patch [Lidoderm 5% Patch] 1 patch TRANSDERM DIRECTED 03/28/21 [History] Montelukast [Singulair] 10 mg PO HS@1700 03/28/21 [History] Sodium Bicarbonate Tab 650 mg PO DAILY@1400 03/28/21 [History] Donepezil [Aricept] 5 mg PO HS tab 04/07/21 [Rx] Furosemide [Lasix] 40 mg PO DAILY #0 04/07/21 [Rx] HYDROcodone/APAP 5-325MG [Riga 5-325] 1 tab PO Q6H PRN #12 tab 04/07/21 [Rx] INSULIN ASPART (NovoLOG) [NovoLOG (formulary)] 0 unit SQ ACHS ml 04/07/21 [Rx] Metoprolol Tartrate [Lopressor] 25 mg PO DAILY tab 04/07/21 [Rx] Midodrine [ProAmatine] 5 mg PO BID #0 04/07/21 [Rx] Nitrofurantoin Monohyd/M-Cryst [Macrobid] 100 mg PO Q12HR 10 Days #20 cap 04/07/21 [Rx] Pantoprazole [Protonix] 40 mg PO AC-BRKFST #0 04/07/21 [Rx] clonazePAM 0.5 mg PO DIRECTED #2 tab 04/07/21 [Rx] traMADol HCl [Ultram] 50 mg PO Q6HR PRN #12 tab 04/07/21 [Rx] Follow up Appointment(s)/Referral(s): Cameron Ordonez DO [Doctor of Osteopathic Medicine] - 2 Weeks Kiel Wang DO [Primary Care Provider] - 1 Week (AFTER DC FROM [facility]) Discharge Disposition: TRANSFER TO SNF/ECF
[2021-04-07 10:14] LABS: African American GFR (CKD) 6.1 (60.0-200.0); Albumin 2.6 g/dL (3.8-4.9); Albumin/Globulin Ratio 1.08 (1.60-3.17); Anion Gap 14.7 mmol/L (4.00-12.00); BUN/Creat Ratio 3.4 Ratio (12.00-20.00); Blood Urea Nitrogen 29.9 mg/dL (9.0-27.0); Calcium 6.5 mg/dL (8.7-10.3); Carbon Dioxide 24.3 mmol/L (21.6-31.8); Globulin 2.4 g/dL (1.6-3.3); Non-African American GFR(CKD) 5.3 (60.0-200.0); Potassium 3.4 mmol/L (3.5-5.5); Total Bilirubin 0.7 mg/dL (0.30-1.20)
[2021-04-07] MEDS: TAMSULOSIN 0.4 MG CAP.ER.24H PO SCH (11:18)
[2021-04-07 12:35] LABS: Glucose,Whole Blood 193 mg/dL (75-99)
[2021-04-07] MEDS: FOLIC ACID-VIT B COMPLEX-VIT C 1 CAP PO SCH (12:49)
[2021-04-07] MEDS: SODIUM BICARBONATE TAB 650 MG TAB PO SCH (12:49)
[2021-04-07 12:58] VITALS: BP 109/51; PULSE 50; RESP 17
== END 2021-04-07 13:45 | DRG 551 ==
LOC: EC 05:55 → 5NMEDONC 12:20
PROVIDERS: ADMIT Internal Medicine Geriatric Medicine; ATTEND Internal Medicine Geriatric Medicine
PROC: 3E1M39Z Irrigation of Peritoneal Cavity using Dialysate, Percutaneous Approach (ICD-10-PCS; principal; 2021-04-04)
DX: S32.011A Stable burst fracture of first lumbar vertebra, initial encounter for closed fracture (principal); N18.6 End stage renal disease; I12.0 Hypertensive chronic kidney disease with stage 5 chronic kidney disease or end stage renal disease; I48.20 Chronic atrial fibrillation, unspecified; F33.9 Major depressive disorder, recurrent, unspecified; E87.2 Acidosis; E83.9 Disorder of mineral metabolism, unspecified; D63.1 Anemia in chronic kidney disease; I49.5 Sick sinus syndrome; E11.22 Type 2 diabetes mellitus with diabetic chronic kidney disease; F03.90 Unspecified dementia, unspecified severity, without behavioral disturbance, psychotic disturbance, mood disturbance, and anxiety; J44.9 Chronic obstructive pulmonary disease, unspecified; Z79.4 Long term (current) use of insulin; Z99.2 Dependence on renal dialysis; Z20.822 Contact with and (suspected) exposure to COVID-19; R62.7 Adult failure to thrive; N40.0 Benign prostatic hyperplasia without lower urinary tract symptoms; E78.5 Hyperlipidemia, unspecified; E55.9 Vitamin D deficiency, unspecified; G47.33 Obstructive sleep apnea (adult) (pediatric); E87.6 Hypokalemia; R29.6 Repeated falls; K21.9 Gastro-esophageal reflux disease without esophagitis; R82.81 Pyuria; E66.9 Obesity, unspecified; Z68.32 Body mass index [BMI] 32.0-32.9, adult; Z79.01 Long term (current) use of anticoagulants; Z79.899 Other long term (current) drug therapy; Z90.49 Acquired absence of other specified parts of digestive tract; Z87.19 Personal history of other diseases of the digestive system; Z87.891 Personal history of nicotine dependence; Z87.440 Personal history of urinary (tract) infections; Z95.0 Presence of cardiac pacemaker; Z91.81 History of falling; Z96.41 Presence of insulin pump (external) (internal); W01.0XXA Fall on same level from slipping, tripping and stumbling without subsequent striking against object, initial encounter; Y92.003 Bedroom of unspecified non-institutional (private) residence as the place of occurrence of the external cause; Z88.1 Allergy status to other antibiotic agents; Z88.2 Allergy status to sulfonamides; Z82.5 Family history of asthma and other chronic lower respiratory diseases; Z82.49 Family history of ischemic heart disease and other diseases of the circulatory system; Z83.3 Family history of diabetes mellitus
CPT/HCPCS: 36415; 70450; 71046; 72125; 72131; 80053; 81001; 85025; 85027; 86705; 86706; 86709; 86803; 87086; 87340; 87635; 96372; 99285

== ENCOUNTER 2021-05-16 09:31 | Inpatient (IN) | payer MEDICARE ==
[2021-05-16 09:42] LABS: Glucose,Whole Blood 112 mg/dL (75-99)
--- NOTE | 2021-05-16 09:54 | ED ---
General Adult HPI - General Chief complaint: Altered Mental Status Stated complaint: altered mental status Time Seen by Provider: 05/16/21 09:35 Source: patient, EMS, RN notes reviewed, old records reviewed Mode of arrival: EMS Limitations: altered mental status, physical limitation - History of Present Illness Initial comments: This is a 76-year-old male who presents to the emergency department for altered mental status. Patient gets peritoneal dialysis and when the went in this morning to see him after it cycled throughout the night she noted that he was altered. She did not indicate in the else to EMS or one week altered. Patient has not had any recent fevers he was not complaining of shortness of breath or difficulty breathing or any chest pain. When I spoke with the patient he said he had some abdominal pain. Patient denied any vomiting or diarrhea. Patient did deny chest pain or shortness of breath to me. - Related Data Home Medications Medication Instructions Recorded Confirmed Maureen-Chris 1 tab PO DAILY@1700 06/17/18 05/16/21 Atorvastatin Calcium [Lipitor] 40 mg PO HS 02/16/20 05/16/21 QUEtiapine FUMARATE [SEROquel] 25 mg PO DAILY@1700 02/16/20 05/16/21 Nicotine Polacrilex [Nicorette] 4 mg BUCCAL Q2H PRN 02/19/20 05/16/21 Calcium Acetate [PhosLo] 1,334 mg PO AC-TID 11/26/20 05/16/21 Cinacalcet HCl [Sensipar] 90 mg PO MOWEFR 11/26/20 05/16/21 DULoxetine HCL [Cymbalta] 60 mg PO DAILY 11/26/20 05/16/21 Montelukast [Singulair] 10 mg PO HS@1700 03/28/21 05/16/21 Sodium Bicarbonate Tab 650 mg PO DAILY@1700 03/28/21 05/16/21 Apixaban [Eliquis] 2.5 mg PO BID@0900,1700 05/16/21 05/16/21 Cholecalciferol (Vitamin D3) 125 mcg PO DAILY@1700 05/16/21 05/16/21 [Vitamin D3 (125 MCG = 5,000 IU)] Insulin Aspart (For Pump) [NovoLOG 0.01 unit SQ-PUMP CONTINUOUS 05/16/21 05/16/21 (For Pump)] Midodrine [ProAmatine] 5 mg PO BID@0900,1700 PRN 05/16/21 05/16/21 Omalizumab [Xolair] 300 mg SQ Q28D 05/16/21 05/16/21 Pantoprazole [Protonix] 40 mg PO DAILY 05/16/21 05/16/21 Tamsulosin [Flomax] 0.4 mg PO DAILY@1400 05/16/21 05/16/21 amLODIPine [Norvasc] 5 mg PO BID@0900,1400 05/16/21 05/16/21 Allergies Allergy/AdvReac Type Severity Reaction Status Date / Time levofloxacin [From Levaquin] Allergy Rash/Hives Verified 05/16/21 10:37 Sulfa (Sulfonamide Allergy Rash/Hives Verified 05/16/21 10:37 Antibiotics) Review of Systems ROS Statement: Those systems with pertinent positive or pertinent negative responses have been documented in the HPI. ROS Other: All systems not noted in ROS Statement are negative. Past Medical History Past Medical History: COPD, Diabetes Mellitus, Dialysis, Hypertension, Prostate Disorder, Renal Disease, Sleep Apnea/CPAP/BIPAP, Syncope Additional Past Medical History / Comment(s): BPH, uses CPAP, Peritoneal dialysis History of Any Multi-Drug Resistant Organisms: None Reported Past Surgical History: Cholecystectomy, Heart Catheterization, Hernia Repair, Orthopedic Surgery, Pacemaker Additional Past Surgical History / Comment(s): L AV fistula placed on 05/29/2016 [facility], right shoulder proximal humerus repair Past Anesthesia/Blood Transfusion Reactions: No Reported Reaction Type of Cardiac Device: Permanent Pacemaker Device Placement Date:: 05/10/2018 Past Psychological History: Depression Smoking Status: Former smoker Past Alcohol Use History: None Reported Past Drug Use History: None Reported - Past Family History Father History Unknown: Yes Family Medical History: Diabetes Mellitus, Myocardial Infarction ([place]) Additional Family Medical History / Comment(s): at 76 Mother History Unknown: Yes Family Medical History: Congestive Heart Failure (CHF), Diabetes Mellitus Additional Family Medical History / Comment(s): lived to be 97 Brother(s) History Unknown: Yes Family Medical History: COPD, Liver Disease Daughter(s) History Unknown: Yes General Exam - General Exam Comments Initial Comments: GENERAL: Patient is well-developed and well-nourished. Patient is nontoxic and well- hydrated and is in no acute distress. ENT: Neck is soft and supple. No significant lymphadenopathy is noted. Oropharynx is clear. Moist mucous membranes. Neck has full range of motion without eliciting any pain. EYES: The sclera were anicteric and conjunctiva were pink and moist. Extraocular movements were intact and pupils were equal round and reactive to light. Eyelids were unremarkable. PULMONARY: Unlabored respirations. Good breath sounds bilaterally. No audible rales rhonchi or wheezing was noted. CARDIOVASCULAR: There is a regular rate and rhythm without any murmurs gallops or rubs. ABDOMEN: Mild right upper quadrant abdominal tenderness SKIN: Skin is clear with no lesions or rashes and otherwise unremarkable. NEUROLOGIC: Patient is alert and oriented 2. Cranial nerves II through XII are grossly intact. Motor and sensory are also intact. Normal speech, volume and content. Symmetrical smile. MUSCULOSKELETAL: Normal extremities with adequate strength and full range of motion. LYMPHATICS: No significant lymphadenopathy is noted PSYCHIATRIC: Unable to assess secondary to his altered mental status Limitations: altered mental status, physical limitation Course Vital Signs 05/16/21 05/16/21 05/16/21 09:35 10:39 13:00 Temperature 97.8 F Pulse Rate 75 53 L 54 L Respiratory 18 18 16 Rate Blood Pressure 140/72 141/76 149/66 O2 Sat by Pulse 93 L 96 95 Oximetry Medical Decision Making - Medical Decision Making EKG shows paced rhythm at 72 bpm QRS is 168 QT interval is 532 QTC is 582. Patient's EKG shows no ST segment elevation or depression. CT brain shows possible normal pressure hydrocephalus. Chest x-ray shows no acute abnormality. Patient still remains altered according to the and patient will be admitted to the hospital and I will consult nephrology. I spoke with Dr. Pool he agreed to admit the patient admitted the patient wrote admitting orders. Spoke with Dr. Michael she agreed to take care of the patient's dialysis and culture up the dialysate. She did not want antibiotics at this time. - Lab Data Result diagrams: 05/16/21 09:55 05/16/21 09:55 Lab Results 05/16/21 05/16/21 05/16/21 Range/Units 09:39 09:55 09:55 WBC 7.9 (3.8-10.6) k/uL RBC 3.59 L (4.30-5.90) m/uL Hgb 11.5 L (13.0-17.5) gm/dL Hct 35.1 L (39.0-53.0) % MCV 97.7 (80.0-100.0) fL MCH 32.1 (25.0-35.0) pg MCHC 32.8 (31.0-37.0) g/dL RDW 14.7 (11.5-15.5) % Plt Count 238 (150-450) k/uL MPV 8.3 Neutrophils % 66 % Lymphocytes % 13 % Monocytes % 9 % Eosinophils % 10 % Basophils % 1 % Neutrophils # 5.3 (1.3-7.7) k/uL Lymphocytes # 1.0 (1.0-4.8) k/uL Monocytes # 0.7 (0-1.0) k/uL Eosinophils # 0.8 H (0-0.7) k/uL Basophils # 0.1 (0-0.2) k/uL Poikilocytosis Slight Sodium (137-145) mmol/L Potassium (3.5-5.1) mmol/L Chloride (98-107) mmol/L Carbon Dioxide (22-30) mmol/L Anion Gap mmol/L BUN (9-20) mg/dL Creatinine (0.66-1.25) mg/dL Est GFR (CKD-EPI)AfAm (>60 ml/min/1.73 sqM) Est GFR (CKD-EPI)NonAf (>60 ml/min/1.73 sqM) Glucose (74-99) mg/dL POC Glucose (mg/dL) 112 H (75-99) mg/dL POC Glu [employer] ID Hardik Ontiveros Plasma Lactic Acid Edmundo (0.7-2.0) mmol/L Calcium (8.4-10.2) mg/dL Magnesium (1.6-2.3) mg/dL Total Bilirubin (0.2-1.3) mg/dL AST (17-59) U/L ALT (4-49) U/L Alkaline Phosphatase (38-126) U/L Troponin I (0.000-0.034) ng/mL Total Protein (6.3-8.2) g/dL Albumin (3.5-5.0) g/dL Coronavirus (PCR) Not Detected (Not Detectd) 05/16/21 05/16/21 05/16/21 Range/Units 09:55 09:55 09:55 WBC (3.8-10.6) k/uL RBC (4.30-5.90) m/uL Hgb (13.0-17.5) gm/dL Hct (39.0-53.0) % MCV (80.0-100.0) fL MCH (25.0-35.0) pg MCHC (31.0-37.0) g/dL RDW (11.5-15.5) % Plt Count (150-450) k/uL MPV Neutrophils % % Lymphocytes % % Monocytes % % Eosinophils % % Basophils % % Neutrophils # (1.3-7.7) k/uL Lymphocytes # (1.0-4.8) k/uL Monocytes # (0-1.0) k/uL Eosinophils # (0-0.7) k/uL Basophils # (0-0.2) k/uL Poikilocytosis Sodium 131 L (137-145) mmol/L Potassium 3.1 L (3.5-5.1) mmol/L Chloride 92 L (98-107) mmol/L Carbon Dioxide 29 (22-30) mmol/L Anion Gap 10 mmol/L BUN 29 H (9-20) mg/dL Creatinine 7.45 H* (0.66-1.25) mg/dL Est GFR (CKD-EPI)AfAm 7 (>60 ml/min/1.73 sqM) Est GFR (CKD-EPI)NonAf 6 (>60 ml/min/1.73 sqM) Glucose 109 H (74-99) mg/dL POC Glucose (mg/dL) (75-99) mg/dL POC Glu [employer] ID Plasma Lactic Acid Edmundo 1.4 (0.7-2.0) mmol/L Calcium 8.3 L (8.4-10.2) mg/dL Magnesium 1.5 L (1.6-2.3) mg/dL Total Bilirubin 1.2 (0.2-1.3) mg/dL AST 34 (17-59) U/L ALT 17 (4-49) U/L Alkaline Phosphatase 200 H (38-126) U/L Troponin I 0.056 H* (0.000-0.034) ng/mL Total Protein 6.0 L (6.3-8.2) g/dL Albumin 2.9 L (3.5-5.0) g/dL Coronavirus (PCR) (Not Detectd) Disposition Clinical Impression: Altered mental status, Abdominal pain, Hypokalemia, Hypomagnesemia Disposition: ADMITTED IP TO THIS HOSP Referrals: Kiel Wang DO [Primary Care Provider] - 1-2 days Time of Disposition: 12:38
[2021-05-16 10:07] LABS: Basophils # (A) 0.1 k/uL (0-0.2); Basophils % (A) 1 %; Eosinophils # (A) 0.8 k/uL (0-0.7); Eosinophils % (A) 10 %; HCT 35.1 % (39.0-53.0); HGB 11.5 gm/dL (13.0-17.5); Lymphocytes % (A) 13 %; MCH 32.1 pg (25.0-35.0); MCHC 32.8 g/dL (31.0-37.0); MCV 97.7 fL (80.0-100.0); Mean Platelet Volume 8.3; Monocytes # (A) 0.7 k/uL (0-1.0); Monocytes % (A) 9 %; Neutrophils # (A) 5.3 k/uL (1.3-7.7); Neutrophils % (A) 66 %; Platelet Count 238 k/uL (150-450); Poikilocytosis Slight; RBC 3.59 m/uL (4.30-5.90); RDW 14.7 % (11.5-15.5); WBC 7.9 k/uL (3.8-10.6)
[2021-05-16 10:21] LABS: Albumin 2.9 g/dL (3.5-5.0); Calcium 8.3 mg/dL (8.4-10.2); Magnesium 1.5 mg/dL (1.6-2.3); Potassium 3.1 mmol/L (3.5-5.1); Total Bilirubin 1.2 mg/dL (0.2-1.3)
--- NOTE | 2021-05-16 10:22 | XR ---
EXAMINATION TYPE: XR chest 2V DATE OF EXAM: 05/16/2021 COMPARISON: Chest x-ray 04/04/2021, CT 11/30/2020 HISTORY: Difficulty breathing TECHNIQUE: Frontal and lateral views of the chest are obtained. FINDINGS: There is a generator in the right pectoral region, lead in the right ventricle. Cardiac me diastinal silhouette shows a similar appearance, right hemidiaphragm is elevated. There are overlying artifacts. Aorta is dense and likely ectatic. Heart is enlarged although patient is rotated. Lung vo lumes are low. No evident pneumothorax. Patchy densities present in the infrahilar region on the righ t. Lateral exam shows some possible blunting of the costophrenic angle, obscured portion of the poste rior aspect of the right hemidiaphragm. Postop changes are noted in the right humerus. IMPRESSION: Expiratory rotated exam. Cardiomegaly, that may be some pneumonia with effusion versus a telectasis. Possible aortic ectasia the descending aorta.
--- NOTE | 2021-05-16 10:50 | CT ---
EXAMINATION TYPE: CT brain wo con DATE OF EXAM: 05/16/2021 COMPARISON: 04/04/2021 HISTORY: altered mental status CT DLP: 1099.4 mGycm Automated exposure control for dose reduction was used. FINDINGS: There is no acute intracranial hemorrhage or midline shift identified. Mild ventricular and sulcal pr ominence redemonstrated. Mild to moderate low attenuation in the periventricular white matter redemon strated. Scleral calcification bilateral globes again seen. The calvarium is intact. Orbits are symme tric. Changes of chronic mastoiditis. Faint hyperdensity seen along the frontal THE RIGHT IS FELT TO BE MOST LIKELY ARTIFACT. IMPRESSION: 1. Degenerative and nonspecific white matter change most typical remote ischemia. Central ventricular dilation to be associated with normal pressure hydrocephalus or hydrocephalus correlate clinically. 2. There is faint hyperdensity along the frontal lobe anteriorly which is felt to be most likely hiral factual correlate clinically.
[2021-05-16] MEDS ORDERED: POTASSIUM CHLORIDE 20 MEQ in WATER FOR INJECTION 1 100ML.BAG IVPB STA (12:38)
[2021-05-16] MEDS ORDERED: MAGNESIUM SULFATE-D5W PMX 1 GM in DEXTROSE/WATER 1 100ML.BAG IVPB ONE (12:38)
[2021-05-16] MEDS: DIALYSIS (PERIT 1.5%) 2,500 ML 37.5 G/2,500 ML BAG INTRAPERIT SCH (21:07)
[2021-05-16 21:15] LABS: Glucose,Whole Blood 163 mg/dL (75-99)
[2021-05-16] MEDS: Acetaminophen-Codeine 300-30mg TAB PO PRN (21:21)
--- NOTE | 2021-05-16 21:47 | P.HPIM ---
History of Present Illness H&P Date: 05/16/21 HISTORY OF PRESENT ILLNESS This is a 76-year-old patient of Dr. Wang with a past medical history significant for COPD, diabetes mellitus2, and stage renal disease on CAPD, hypertension, chronic atrial fibrillation, sick sinus syndrome status post single-chamber permanent pacemaker, BPH, hyperlipidemia, gastroesophageal reflux disease, recurrent depression, vitamin D deficiency, obstructive sleep apnea. patient was in the hospital a few weeks ago for full, abnormal balance and gait, not been able to ambulate and walk was in [facility] for 3 weeks to do physical therapy ended up going back home. Patient does CAPD 4 end-stage renal disease and him and his are able to manage well at home. In the lost few days according to he become with slight declining condition with severe fatigue tiredness significant altered mental status he is not doing as well. Apparently patient had is CAPD this morning his went to see him after the cycle throughout the night she noted that he had significant altered mental status just not thinking straight more confusion with worsening symptoms. Ended up calling 911 and brought him to the emergency department at [facility] where was seen and evaluated he declined any abdominal pain, no chest pain or shortness of breath and nausea vomiting he still having mild diarrhea on and off he is not making much urine anymore with no burning discomfort or changing color lately. Was seen and evaluated his white blood count was 7.9 with hemoglobin 11.5. His chemistry showed creatinine of 7.45 with bun of 29 blood sugar was normal at the time his troponin was mildly elevated at 0.056 with alk phos of 200. COVID-19 was negative. Ended up going for chest x-ray which showed cardiomegaly with tiny pleural effusion versus atelectasis with possible aortic ectasia of the descending aorta. CT of the brain shows degenerative and not specific white matter change most typical remote ischemia with central ventricular the patient be associated with possible normal pressure hydrocephalus. Also there is still faint hyperdensity along the frontal lobe anterior which is felt to be most likely artifact. Slight increased discomfort in the abdominal area high suspicion for pericardial infection or peritonitis specially for his CAPD. Apparently nephrology Dr. Michael was contacted and decided not to start him on any antibiotic yet but to do his PD fluid analysis first before we treat in the meanwhile to watch for any worsening symptoms. Patient be hospitalized at this point for observation and management. With the finding in the brain CAT scan consistent with possible normal pressure hydrocephalus patient required to be seen by one of the specialized neurologist but will be evaluated by neurology in the hospital initially. REVIEW OF SYSTEMS Constitutional: No fever, no chills, no night sweats. No weight change. Reports weakness, fatigue or lethargy. No daytime sleepiness. EENT: No headache. No blurred vision or double vision, no loss of vision. No loss of Hearing, no ringing in the ears, no dizziness. No nasal drainage or congestion. No epistaxis. No sore throat. Lungs: No shortness of breath, cough, no sputum production. No wheezing. Cardiovascular: No chest pain, no lower extremity edema. No palpitations. No paroxysmal nocturnal dyspnea. No orthopnea. No lightheadedness or dizziness. No syncopal episodes. Abdominal: No abdominal pain. No nausea, vomiting. No diarrhea. No constipation. No bloody or tarry stools.. No loss of appetite. CAPD. Genitourinary: No dysuria, increased frequency, urgency. No urinary retention. Musculoskeletal: No myalgias. Reports muscle weakness, reports gait dysfunction, reports frequent falls. Reports back pain. No neck pain. Integumentary: Reports abrasions and ecchymosis, no lesions. No rash or pruritus. No unusual bruising. No change in hair or nails. Neurologic: No aphasia. No facial droop. No change in mentation. No head injury. No headache. No paralysis. No paresthesia. Psychiatric: No depression. No anxiety. No mood swings. Endocrine: No abnormal blood sugars. No weight change. No excessive sweating or thirst. No cold intolerance. SOCIAL HISTORY Patient was smoked from age 17 and quit in 2018 he has smoked one pack a day. Patient denies alcohol marijuana or illicit drug use. He lives at home with his . 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 Patient performs CAPD at home. Utilizes a walker. FAMILY HISTORY Patient has 1 brother that from cirrhosis of the liver and one with history of hypertension and heart disease. PHYSICAL EXAMINATION Gen: This is a 76-year-old obese male. He is resting on stretcher and appears to be comfortable and in no acute distress. HEENT: Head is atraumatic, normocephalic. Pupils equal, round. Sclerae is anicteric. NECK: Supple. No JVD. No lymphadenopathy. No thyromegaly. LUNGS: Clear to auscultation. No wheezes or rhonchi. No intercostal retractio ns. HEART: Regular rate and rhythm. Systolic murmur. ABDOMEN: Soft. Bowel sounds are present. No masses. No tenderness. EXTREMITIES: No pedal edema. No calf tenderness. Multiple areas of ecchymosis on extremities. NEUROLOGICAL: Patient is awake, alert and oriented x3. Cranial nerves 2 through 12 are grossly intact. ASSESSMENT AND PLAN 1. significant change mental status: Not clear etiology at this point could be infection with peritonitis from his PD low with, also the finding 1 his CAT scan this could be related to normal pressure hydrocephalus with decline over. This time. Also secondary infection such as pneumonia or bronchitis or UTI to be excluded. 2. End-stage renal disease on CAPD. Consult with nephrology. patient BUN/creatinine is a bit higher this could be cycle of his speedy is now working well might need to be converted into hemodialysis for sure. This time. Nephrology will make this determination. 3. Recent treatment for urinary tract infection. no sign or finding of infection at this point waiting for final urine culture. 4. Chronic atrial fibrillation. Continue eliquis, Lopressor 25 mg as directedPulse rate has been well controlled. 5. Diabetes mellitus type II, insulin requiring. Patient to manage on an insulin pumpblood sugar running in the low 100. 6. COPD. Continue Singulair 10 mg by mouth at bedtime 7. Hypertension, stable. Continue Lopressor as needed. 8. BPH. Continue Flomax 0.4 mg 9. Obstructive sleep apnea. Continue CPAP. 10. Hyperlipidemia. Atorvastatin 40 mg 11. Chronic kidney disease mineral bone disorder. Continue PhosLo 667 mg 3x daily, Sensipar 90 mg on Saturday, calcitriol 1 g Mondays. 12. Sick sinus syndrome status post single-chamber permanent pacemaker. 13. Recurrent depression. Continue Cymbalta 60 mg daily, Seroquel 25 mg at bedtime, trazodone 50 mg at bedtime. 14. Dementia. Continue Aricept 5 mg at bedtime. 15. Gastroesophageal reflux disease and GI prophylaxis. Protonix. 16. DVT prophylaxis. Eliquis. Status: Full code Patient will be admitted to the hospital for a minimum of 2 night stay. Past Medical History Past Medical History: COPD, Diabetes Mellitus, Dialysis, Hypertension, Prostate Disorder, Renal Disease, Sleep Apnea/CPAP/BIPAP, Syncope Additional Past Medical History / Comment(s): BPH, uses CPAP, Peritoneal dialysis History of Any Multi-Drug Resistant Organisms: None Reported Past Surgical History: Cholecystectomy, Heart Catheterization, Hernia Repair, Orthopedic Surgery, Pacemaker Additional Past Surgical History / Comment(s): L AV fistula placed on 05/29/2016 [facility], right shoulder proximal humerus repair Past Anesthesia/Blood Transfusion Reactions: No Reported Reaction Type of Cardiac Device: Permanent Pacemaker Device Placement Date:: 05/10/2018 Past Psychological History: Depression Smoking Status: Former smoker Past Alcohol Use History: None Reported Past Drug Use History: None Reported - Past Family History Father History Unknown: Yes Family Medical History: Diabetes Mellitus, Myocardial Infarction ([place]) Additional Family Medical History / Comment(s): at 76 Mother History Unknown: Yes Family Medical History: Congestive Heart Failure (CHF), Diabetes Mellitus Additional Family Medical History / Comment(s): lived to be Brother(s) History Unknown: Yes Family Medical History: COPD, Liver Disease Daughter(s) History Unknown: Yes Medications and Allergies Home Medications Medication Instructions Recorded Confirmed Type Maureen-Chris 1 tab PO DAILY@1700 06/17/18 05/16/21 History Atorvastatin Calcium [Lipitor] 40 mg PO HS 02/16/20 05/16/21 History QUEtiapine FUMARATE [SEROquel] 25 mg PO DAILY@1700 02/16/20 05/16/21 History Nicotine Polacrilex [Nicorette] 4 mg BUCCAL Q2H PRN 02/19/20 05/16/21 History Calcium Acetate [PhosLo] 1,334 mg PO AC-TID 11/26/20 05/16/21 History Cinacalcet HCl [Sensipar] 90 mg PO MOWEFR 11/26/20 05/16/21 History DULoxetine HCL [Cymbalta] 60 mg PO DAILY 11/26/20 05/16/21 History Montelukast [Singulair] 10 mg PO HS@1700 03/28/21 05/16/21 History Sodium Bicarbonate Tab 650 mg PO DAILY@1700 03/28/21 05/16/21 History Apixaban [Eliquis] 2.5 mg PO BID@0900,1700 05/16/21 05/16/21 History Cholecalciferol (Vitamin D3) 125 mcg PO DAILY@1700 05/16/21 05/16/21 History [Vitamin D3 (125 MCG = 5,000 IU)] Insulin Aspart (For Pump) [NovoLOG 0.01 unit SQ-PUMP CONTINUOUS 05/16/21 1 07/17/20 History (For Pump)] Midodrine [ProAmatine] 5 mg PO BID@0900,1700 PRN 05/16/21 05/16/21 History Omalizumab [Xolair] 300 mg SQ Q28D 05/16/21 05/16/21 History Pantoprazole [Protonix] 40 mg PO DAILY 05/16/21 05/16/21 History Tamsulosin [Flomax] 0.4 mg PO DAILY@1400 05/16/21 05/16/21 History amLODIPine [Norvasc] 5 mg PO BID@0900,1400 05/16/21 05/16/21 History Allergies Allergy/AdvReac Type Severity Reaction Status Date / Time levofloxacin [From Levaquin] Allergy Rash/Hives Verified 05/16/21 10:37 Sulfa (Sulfonamide Allergy Rash/Hives Verified 05/16/21 10:37 Antibiotics) Physical Exam Vitals: Vital Signs Temp Pulse Pulse Resp BP BP Pulse Ox 05/16/21 17:06 98.7 F 63 18 140/46 90 L 05/16/21 14:18 18 05/16/21 13:00 54 L 16 149/66 95 05/16/21 10:39 53 L 18 141/76 96 05/16/21 09:35 97.8 F 75 18 140/72 93 L Intake and Output 05/16/21 05/16/21 05/16/21 06:59 14:59 22:59 Intake Total 200 240 Balance 200 240 Intake: IV 200 Magnesium Sulfate-D5w Pmx 100 1 gm In Dextrose/Water 1 100ml.bag @ 100 mls/hr IVPB ONCE ONE Rx#: [id number] Potassium Chloride 20 meq 100 In Water For Injection 1 100ml.bag @ 50 mls/hr IVPB ONCE STA Rx#: [id number] Oral 240 Other: Weight 104 kg Results CBC & Chem 7: 05/16/21 09:55 05/16/21 09:55 Labs: Abnormal Lab Results - Last 24 Hours (Table) 05/16/21 05/16/21 05/16/21 Range/Units 09:39 09:55 09:55 RBC 3.59 L (4.30-5.90) m/uL Hgb 11.5 L (13.0-17.5) gm/dL Hct 35.1 L (39.0-53.0) % Eosinophils # 0.8 H (0-0.7) k/uL Sodium 131 L (137-145) mmol/L Potassium 3.1 L (3.5-5.1) mmol/L Chloride 92 L (98-107) mmol/L BUN 29 H (9-20) mg/dL Creatinine 7.45 H* (0.66-1.25) mg/dL Glucose 109 H (74-99) mg/dL POC Glucose (mg/dL) 112 H (75-99) mg/dL Calcium 8.3 L (8.4-10.2) mg/dL Magnesium 1.5 L (1.6-2.3) mg/dL Alkaline Phosphatase 200 H (38-126) U/L Troponin I (0.000-0.034) ng/mL Total Protein 6.0 L (6.3-8.2) g/dL Albumin 2.9 L (3.5-5.0) g/dL 05/16/21 Range/Units 09:55 RBC (4.30-5.90) m/uL Hgb (13.0-17.5) gm/dL Hct (39.0-53.0) % Eosinophils # (0-0.7) k/uL Sodium (137-145) mmol/L Potassium (3.5-5.1) mmol/L Chloride (98-107) mmol/L BUN (9-20) mg/dL Creatinine (0.66-1.25) mg/dL Glucose (74-99) mg/dL POC Glucose (mg/dL) (75-99) mg/dL Calcium (8.4-10.2) mg/dL Magnesium (1.6-2.3) mg/dL Alkaline Phosphatase (38-126) U/L Troponin I 0.056 H* (0.000-0.034) ng/mL Total Protein (6.3-8.2) g/dL Albumin (3.5-5.0) g/dL
[2021-05-17] MEDS: DIALYSIS (PERIT 1.5%) 2,500 ML 37.5 G/2,500 ML BAG INTRAPERIT SCH ×4 (03:11→17:44)
[2021-05-17 07:37] LABS: Glucose,Whole Blood 223 mg/dL (75-99)
[2021-05-17] MEDS: Insulin Aspart (For Pump) 100 UNIT/ML VIAL SQ-PUMP SCH (07:53)
[2021-05-17 08:54] LABS: Appearance,BF Clear; Color,BF Yellow; Nucleated Cells, Body Fluid 2 /uL; RBC, Body Fluid 112 /uL
[2021-05-17] MEDS ORDERED: CINACALCET 30 MG TAB PO SCH (09:00)
[2021-05-17] MEDS ORDERED: MIDODRINE 5 MG TAB PO PRN (09:00)
[2021-05-17] MEDS: PANTOPRAZOLE 40 MG TABLET PO SCH (09:14)
[2021-05-17] MEDS: amLODIPine 5 MG TAB PO SCH ×2 (09:14→14:38)
[2021-05-17] MEDS: APIXABAN 2.5 MG TABLET PO SCH ×2 (09:14→17:33)
[2021-05-17] MEDS: CALCIUM ACETATE 667 MG TAB PO SCH ×3 (09:14→17:34)
[2021-05-17] MEDS: DULoxetine HCL 60 MG CAPSULE.DR PO SCH (09:15)
[2021-05-17] MEDS: INSULIN ASPART (NovoLOG) 100 UNIT/ML VIAL SQ SCH ×4 (09:17→22:06)
--- NOTE | 2021-05-17 12:12 | P.CNNES ---
History of Present Illness Consult date: 05/17/21 Requesting physician: Dmitriy Pool Reason for Consult: Change in mental status History of Present Illness: Patient is a 76-year-old male with history of end-stage renal disease on peritoneal dialysis, came to the hospital by ambulance yesterday at 9:31 AM for altered mental status. Patient is slightly confused, not able to provide any history. As per EMS flow sheet, it was reported by patient's , that he was receiving peritoneal dialysis earlier in the morning,. He woke up during the dialysis with altered mental status. Patient's blood glucose was 123. Patient's has noticed that he was normal the night prior when he went to bed. His blood pressure was 118/62, pulse rate 96, respiration 24 saturation 94%. Patient's blood test shows normal WBC hemoglobin 11.5, platelet 238. Sodium 131 potassium 3.1, BUN 29, creatinine 7.45. Hepatic panel normal. Troponin mildly elevated 0.056. Peritoneal fluid showed no signs of infection. Hardy virus PCR negative. Patient's last hemoglobin A1c 7.1 on 04/10/2021. Computed tomography scan of head showed degenerative and nonspecific white matter change, most typical of remote ischemia. Central ventricular dilation to be associated with normal pressure hydrocephalus or hydrocephalus, correlate clinically. There is faint hyperdensity along the frontal lobe anteriorly which is felt to be most likely artifactual, correlate clinically. On my review, there is evidence of significant cortical atrophy as well, particularly in the frontal region. The ventricles may be very minimally enlarged more than the amount of cortical atrophy. Chest x-ray revealed expiratory rotated exam. Cardiomegaly. Possible aortic ectasia of the descending aorta. Patient had a carotid Doppler on 11/27/2020 which revealed mild carotid bifurcation plaque, but no significant stenosis. Antegrade flow in both vertebral arteries. Patient had a 2-D echo on 11/28/2020, which revealed normal left ventricular size. Left-ventricular systolic function is low normal with an EF between 50-55%. Septal wall motion is delayed and consistent with prior cardiac surgery. Right ventricle is normal in size. Left atrium is moderately dilated. Patient states he does have history of hypertension, diabetes, he has smoked half pack per day for 1-2 years, but has quit. He does not drink alcohol. He has 2 children. Patient states that he lives with his . On asking review of systems, patient admits to having some blurred vision, complains of "dullness in the vision, not as sharp as he likes it to be. He feels the left eye is not as sharp as the right eye. Denies any numbness tingling. Denies neuropathy. Denies any focal weakness, headache. Review of Systems As per history of present illness. All other review of systems and reviewed and noncontributory. Denies any chest pain, shortness of breath, wheezing, abdominal pain nausea vomiting diarrhea. He does get short winded easily. No fever or chills. No rash. Past Medical History Past Medical History: COPD, Diabetes Mellitus, Dialysis, Hypertension, Prostate Disorder, Renal Disease, Sleep Apnea/CPAP/BIPAP, Syncope Additional Past Medical History / Comment(s): BPH, uses CPAP, Peritoneal dialysis History of Any Multi-Drug Resistant Organisms: None Reported Past Surgical History: Cholecystectomy, Heart Catheterization, Hernia Repair, Orthopedic Surgery, Pacemaker Additional Past Surgical History / Comment(s): L AV fistula placed on 05/29/2016 [facility], right shoulder proximal humerus repair Past Anesthesia/Blood Transfusion Reactions: No Reported Reaction Type of Cardiac Device: Permanent Pacemaker Device Placement Date:: 05/10/2018 Past Psychological History: Depression Smoking Status: Former smoker Past Alcohol Use History: None Reported Past Drug Use History: None Reported - Past Family History Father History Unknown: Yes Family Medical History: Diabetes Mellitus, Myocardial Infarction ([place]) Additional Family Medical History / Comment(s): at 76 Mother History Unknown: Yes Family Medical History: Congestive Heart Failure (CHF), Diabetes Mellitus Additional Family Medical History / Comment(s): lived to be 97 Brother(s) History Unknown: Yes Family Medical History: COPD, Liver Disease Daughter(s) History Unknown: Yes Medications and Allergies Home Medications Medication Instructions Recorded Confirmed Type Maureen-Chris 1 tab PO DAILY@1700 06/17/18 05/16/21 History Atorvastatin Calcium [Lipitor] 40 mg PO HS 02/16/20 05/16/21 History QUEtiapine FUMARATE [SEROquel] 25 mg PO DAILY@1700 02/16/20 05/16/21 History Nicotine Polacrilex [Nicorette] 4 mg BUCCAL Q2H PRN 02/19/20 05/16/21 History Calcium Acetate [PhosLo] 1,334 mg PO AC-TID 11/26/20 05/16/21 History Cinacalcet HCl [Sensipar] 90 mg PO MOWEFR 11/26/20 05/16/21 History DULoxetine HCL [Cymbalta] 60 mg PO DAILY 11/26/20 05/16/21 History Montelukast [Singulair] 10 mg PO HS@1700 03/28/21 05/16/21 History Sodium Bicarbonate Tab 650 mg PO DAILY@1700 03/28/21 05/16/21 History Apixaban [Eliquis] 2.5 mg PO BID@0900,1700 05/16/21 05/16/21 History Cholecalciferol (Vitamin D3) 125 mcg PO DAILY@1700 05/16/21 05/16/21 History [Vitamin D3 (125 MCG = 5,000 IU)] Insulin Aspart (For Pump) [NovoLOG 0.01 unit SQ-PUMP CONTINUOUS 05/16/21 05/16/21 History (For Pump)] Midodrine [ProAmatine] 5 mg PO BID@0900,1700 PRN 05/16/21 05/16/21 History Omalizumab [Xolair] 300 mg SQ Q28D 05/16/21 05/16/21 History Pantoprazole [Protonix] 40 mg PO DAILY 05/16/21 05/16/21 History Tamsulosin [Flomax] 0.4 mg PO DAILY@1400 05/16/21 05/16/21 History amLODIPine [Norvasc] 5 mg PO BID@0900,1400 05/16/21 05/16/21 History Acetaminophen-Codeine 300-30mg 1 each PO Q6HR PRN #12 tab 05/18/21 Rx [Tylenol w/codeine #3] Cefuroxime [Ceftin] 250 mg PO BID 10 Days #20 tab 05/18/21 Rx Allergies Allergy/AdvReac Type Severity Reaction Status Date / Time levofloxacin [From Levaquin] Allergy Rash/Hives Verified 05/16/21 10:37 Sulfa (Sulfonamide Allergy Rash/Hives Verified 05/16/21 10:37 Antibiotics) Physical Examination - Vital Signs Vital Signs: Vital Signs Temp Pulse Pulse Resp BP BP Pulse Ox 05/17/21 09:21 98 164/80 05/17/21 05:00 98.2 F 73 19 181/67 93 L 05/17/21 03:28 98.6 F 70 18 152/65 93 L 05/16/21 21:47 98.6 F 65 18 166/67 92 L 05/16/21 21:15 98.6 F 65 18 166/67 92 L 05/16/21 20:01 63 18 05/16/21 17:06 98.7 F 63 18 140/46 90 L 05/16/21 14:18 18 05/16/21 13:00 54 L 16 149/66 95 05/16/21 10:39 53 L 18 141/76 96 Intake and Output 05/16/21 05/17/21 05/17/21 22:59 06:59 14:59 Intake Total 440 240 Balance 440 240 Intake: Oral 440 240 Other: Voiding Method CAPD Weight 104 kg Patient is an elderly male, in no acute distress. Patient is alert awake. Patient states that he is in [facility], in [facility]. Patient then stated that he is in [facility], but then changed again to being in [facility] (He states [facility] instead of [place]). He knows name of the current president. He states that he is in "[facility]. Speech and language functions are normal. Patient can name and repeat very well. He follows direction very well. He was able to follow complex commands. No finger agnosia. Patient not able to locate the TV in front, but when I turned it on, he was able to recognize it, stating "oh I and missed it, it just blends with everything else". Attention, concentration and fund of knowledge is adequate. On cranial examination, pupils are round and reacting to light, visual daniel are full on confrontation, extraocular muscles are intact with no nystagmus. Face is symmetric, tongue protrudes to the midline. Palatal elevation and sen sation normal, hearing and shoulder shrug normal, facial sensation normal. On muscle strength testing, there is no pronator drift and the strength is normal in arms and legs distally and proximally, except deltoid and hip flexion which may be 5-bilaterally, however toe extension is weak bilaterally 3+ on either side. Deep tendon reflexes are absent in the arms and legs and plantars are downgoing. Sensory to touch is equal with no neglect. Cerebellar function showed no ataxia for [id number] testing. Tone and bulk of muscles normal. Gait not checked. On general examination, there is no carotid bruit or murmur, S1-S2 audible. Abdomen is soft nontender. Chest is clear. Peripheral pulses are present. No edema. Results - Laboratory Findings CBC and BMP: 05/16/21 09:55 05/18/21 05:22 Abnormal Lab Findings: Abnormal Labs 05/16/21 05/16/21 05/16/21 09:39 09:55 09:55 RBC 3.59 L Hgb 11.5 L Hct 35.1 L Eosinophils # 0.8 H Sodium 131 L Potassium 3.1 L Chloride 92 L BUN 29 H Creatinine 7.45 H* Glucose 109 H POC Glucose (mg/dL) 112 H Calcium 8.3 L Magnesium 1.5 L Alkaline Phosphatase 200 H Troponin I Total Protein 6.0 L Albumin 2.9 L 05/16/21 05/16/21 05/17/21 09:55 19:57 07:36 RBC Hgb Hct Eosinophils # Sodium Potassium Chloride BUN Creatinine Glucose POC Glucose (mg/dL) 163 H 223 H Calcium Magnesium Alkaline Phosphatase Troponin I 0.056 H* Total Protein Albumin Assessment and Plan Assessment: * Altered mental status, likely due to delirium possible mild metabolic encephalopathy. Patient's examination is nonfocal. * CT head reported as possible normal pressure hydrocephalus. On my review, there is very minimal excessive enlargement of the ventricles as compared to the amount of cortical atrophy. * End-stage renal disease on peritoneal dialysis * Pacemaker * Diabetes mellitus * Hypertension * Probable peripheral neuropathy. * Obesity Plan: * Patient's examination is relatively nonfocal. * We will check B12, folate, ammonia, methylmalonic acid, B6. * Patient had 2-D echo and carotid Doppler performed recently within the last 6 months, which were normal, therefore no reason to repeat it. * Agree with checking urinalysis to rule out UTI. * Patient currently on Eliquis 2.5 mg twice a day and Lipitor 40 mg, to be continued. * We will follow clinically. Addendum: UA did show signs of infection with large amount of leukocyte Estrace, >182 WBCs, many WBC clumps and few bacteria. IM to address. B12 1675, folate 17.7, TSH 2.27 and ammonia < 9.
[2021-05-17 12:22] LABS: Glucose,Whole Blood 206 mg/dL (75-99)
--- NOTE | 2021-05-17 14:07 | P.PN ---
Subjective Progress Note Date: 05/17/21 HISTORY OF PRESENT ILLNESS This is a 76-year-old patient of Dr. Wang with a past medical history significant for COPD, diabetes mellitus2, and stage renal disease on CAPD, hyp ertension, chronic atrial fibrillation, sick sinus syndrome status post single- chamber permanent pacemaker, BPH, hyperlipidemia, gastroesophageal reflux disease, recurrent depression, vitamin D deficiency, obstructive sleep apnea. patient was in the hospital a few weeks ago for full, abnormal balance and gait, not been able to ambulate and walk was in [facility] for 3 weeks to do physical therapy ended up going back home. Patient does CAPD 4 end-stage renal disease and him and his are able to manage well at home. In the lost few days according to he become with slight declining condition with severe fatigue tiredness significant altered mental status he is not doing as well. Apparently patient had is CAPD this morning his went to see him after the cycle throughout the night she noted that he had significant altered mental status just not thinking straight more confusion with worsening symptoms. Ended up calling 911 and brought him to the emergency department at [facility] where was seen and evaluated he declined any abdominal pain, no chest pain or shortness of breath and nausea vomiting he still having mild diarrhea on and off he is not making much urine anymore with no burning discomfort or changing color lately. Was seen and evaluated his white blood count was 7.9 with hemoglobin 11.5. His chemistry showed creatinine of 7.45 with bun of 29 blood sugar was normal at the time his troponin was mildly elevated at 0.056 with alk phos of 200. COVID-19 was negative. Ended up going for chest x-ray which showed cardiomegaly with tiny pleural effusion versus atelectasis with possible aortic ectasia of the descending aorta. CT of the brain shows degenerative and not specific white matter change most typical remote ischemia with central ventricular the patient be associated with possible normal pressure hydrocephalus. Also there is still faint hyperdensity along the frontal lobe anterior which is felt to be most likely artifact. Slight increased discomfort in the abdominal area high suspicion for pericardial infection or peritonitis specially for his CAPD. Apparently nephrology Dr. Michael was contacted and decided not to start him on any antibiotic yet but to do his PD fluid analysis first before we treat in the meanwhile to watch for any worsening symptoms. Patient be hospitalized at this point for observation and management. With the finding in the brain CAT scan consistent with possible normal pressure hydrocephalus patient required to be seen by one of the specialized neurologist but will be evaluated by neurology in the hospital initially. 05/17: Patient continues to have confusion. Unable to locate insulin pump on h is abdomen and patient is not sure but he believes that it is at home. patient will be started on NovoLog scale only for now. A1c was 7.1 04/10/2021. Not recall anything that happened yesterday at bringing him into the hospital. He is requesting a nicotine patch will be ordered. PT and OT will be ordered. He has been afebrile, heart rate 73, blood pressure 181/67, pulse ox 93% on room air. CAPD as managed by Dr. Michael. There is also consult in place with neurology. Blood culture is status received as well as peritoneal fluid cultures. REVIEW OF SYSTEMS Constitutional: No fever, no chills, no night sweats. No weight change. Reports weakness, fatigue or lethargy. No daytime sleepiness. EENT: No headache. No blurred vision or double vision, no loss of vision. No loss of Hearing, no ringing in the ears, no dizziness. No nasal drainage or congestion. No epistaxis. No sore throat. Lungs: No shortness of breath, cough, no sputum production. No wheezing. Cardiovascular: No chest pain, no lower extremity edema. No palpitations. No paroxysmal nocturnal dyspnea. No orthopnea. No lightheadedness or dizziness. No syncopal episodes. Abdominal: No abdominal pain. No nausea, vomiting. No diarrhea. No constipation. No bloody or tarry stools.. No loss of appetite. CAPD. Genitourinary: No dysuria, increased frequency, urgency. No urinary retention. Musculoskeletal: No myalgias. Reports muscle weakness, reports gait dysfunction, reports frequent falls. Reports back pain. No neck pain. Integumentary: Reports abrasions and ecchymosis, no lesions. No rash or pruritus. No unusual bruising. No change in hair or nails. Neurologic: No aphasia. No facial droop. Reported change in mentation. No head injury. No headache. No paralysis. No paresthesia. Psychiatric: No depression. No anxiety. No mood swings. Endocrine: No abnormal blood sugars. No weight change. No excessive sweating or thirst. No cold intolerance. PHYSICAL EXAMINATION Gen: This is a 76-year-old obese male. He is resting in bed and appears to be comfortable and in no acute distress. HEENT: Head is atraumatic, normocephalic. Pupils equal, round. Sclerae is anicteric. NECK: Supple. No JVD. No lymphadenopathy. No thyromegaly. LUNGS: Clear to auscultation. No wheezes or rhonchi. No intercostal retractions. HEART: Regular rate and rhythm. Systolic murmur. ABDOMEN: Soft. Bowel sounds are present. No masses. No tenderness. EXTREMITIES: No pedal edema. No calf tenderness. Multiple areas of ecchymosis on extremities. NEUROLOGICAL: Patient is awake, alert and oriented to person. Cranial nerves 2 through 12 are grossly intact. ASSESSMENT AND PLAN 1. Metabolic encephalopathy: Not clear etiology at this point could be infection with peritonitis from his PD low with, also the finding 1 his CAT scan this could be related to normal pressure hydrocephalus with decline over. This time. Also secondary infection such as pneumonia or bronchitis or UTI to be excluded. 2. End-stage renal disease on CAPD. Consult with nephrology. patient BUN/creatinine is a bit higher this could be cycle of his speedy is now working well might need to be converted into hemodialysis for sure. This time. Nephrology will make this determination. 3. Recent treatment for urinary tract infection. no sign or finding of infection at this point waiting for final urine culture. 4. Chronic atrial fibrillation. Continue eliquis, Lopressor 25 mg as directedPulse rate has been well controlled. 5. Diabetes mellitus type II, insulin requiring. Patient to manage on an insulin pumpblood sugar running in the low 100. 6. COPD. Continue Singulair 10 mg by mouth at bedtime 7. Hypertension, stable. Continue Lopressor as needed. 8. BPH. Continue Flomax 0.4 mg 9. Obstructive sleep apnea. Continue CPAP. 10. Hyperlipidemia. Atorvastatin 40 mg 11. Chronic kidney disease mineral bone disorder. Continue PhosLo 667 mg 3x daily, Sensipar 90 mg on Saturday, calcitriol 1 g Mondays. 12. Sick sinus syndrome status post single-chamber permanent pacemaker. 13. Recurrent depression. Continue Cymbalta 60 mg daily, Seroquel 25 mg at bedtime, trazodone 50 mg at bedtime. 14. Dementia. Continue Aricept 5 mg at bedtime. 15. Gastroesophageal reflux disease and GI prophylaxis. Protonix. 16. DVT prophylaxis. Eliquis. Status: Full code DISCHARGE PLAN TBD Impression and plan of care have been directed as dictated by the signing physician. Jyoti Peraza nurse practitioner acting as scribe for signing physician. Objective - Vital Signs Vital signs: Vital Signs Temp 98.2 F 05/17/21 05:00 Pulse 73 05/17/21 05:00 Resp 19 05/17/21 05:00 BP 181/67 05/17/21 05:00 Pulse Ox 93 L 05/17/21 05:00 Intake & Output 05/16/21 05/17/21 05/17/21 18:59 06:59 18:59 Intake Total 440 440 Balance 440 440 Weight 104 kg 104 kg Intake: IV 200 Magnesium Sulfate-D5w Pmx 100 1 gm In Dextrose/Water 1 100ml.bag @ 100 mls/hr IVPB ONCE ONE Rx#: [id number] Potassium Chloride 20 meq 100 In Water For Injection 1 100ml.bag @ 50 mls/hr IVPB ONCE STA Rx#: [id number] Oral 240 440 Other: Voiding Method CAPD - Labs CBC & Chem 7: 05/16/21 09:55 05/16/21 09:55 Labs: Abnormal Lab Results - Last 24 Hours (Table) 05/16/21 05/16/21 05/16/21 Range/Units 09:39 09:55 09:55 RBC 3.59 L (4.30-5.90) m/uL Hgb 11.5 L (13.0-17.5) gm/dL Hct 35.1 L (39.0-53.0) % Eosinophils # 0.8 H (0-0.7) k/uL Sodium 131 L (137-145) mmol/L Potassium 3.1 L (3.5-5.1) mmol/L Chloride 92 L (98-107) mmol/L BUN 29 H (9-20) mg/dL Creatinine 7.45 H* (0.66-1.25) mg/dL Glucose 109 H (74-99) mg/dL POC Glucose (mg/dL) 112 H (75-99) mg/dL Calcium 8.3 L (8.4-10.2) mg/dL Magnesium 1.5 L (1.6-2.3) mg/dL Alkaline Phosphatase 200 H (38-126) U/L Troponin I (0.000-0.034) ng/mL Total Protein 6.0 L (6.3-8.2) g/dL Albumin 2.9 L (3.5-5.0) g/dL 05/16/21 05/16/21 05/17/21 Range/Units 09:55 19:57 07:36 RBC (4.30-5.90) m/uL Hgb (13.0-17.5) gm/dL Hct (39.0-53.0) % Eosinophils # (0-0.7) k/uL Sodium (137-145) mmol/L Potassium (3.5-5.1) mmol/L Chloride (98-107) mmol/L BUN (9-20) mg/dL Creatinine (0.66-1.25) mg/dL Glucose (74-99) mg/dL POC Glucose (mg/dL) 163 H 223 H (75-99) mg/dL Calcium (8.4-10.2) mg/dL Magnesium (1.6-2.3) mg/dL Alkaline Phosphatase (38-126) U/L Troponin I 0.056 H* (0.000-0.034) ng/mL Total Protein (6.3-8.2) g/dL Albumin (3.5-5.0) g/dL
[2021-05-17] MEDS: NICOTINE 21MG/24HR PATCH TRANSDERM SCH (14:37)
[2021-05-17] MEDS: TAMSULOSIN 0.4 MG CAP.ER.24H PO SCH (14:37)
[2021-05-17] MEDS ORDERED: MONTELUKAST 10 MG TAB PO SCH (17:00)
[2021-05-17] MEDS ORDERED: QUEtiapine 25 MG TAB PO SCH (17:00)
[2021-05-17] MEDS ORDERED: SODIUM BICARBONATE TAB 650 MG TAB PO SCH (17:00)
[2021-05-17] MEDS ORDERED: CHOLECALCIFEROL 125 MCG (5000 IU) TABLET PO SCH (17:00)
[2021-05-17] MEDS ORDERED: FOLIC ACID-VIT B COMPLEX-VIT C 1 CAP PO SCH (17:00)
[2021-05-17 17:29] LABS: Glucose,Whole Blood 219 mg/dL (75-99)
[2021-05-17 19:00] LABS: Appearance,Urine Turbid (Clear); Bacteria,Urine Few /hpf; Bilirubin,Urine Negative (Negative); Blood,Urine Large (Negative); Budding Yeast,Urine Many /hpf; Color,Urine Dark Brown; Glucose,Urine (UA) Trace (Negative); Ketones,Urine Negative (Negative); Leukocyte Esterase,Urine Large (Negative); Mucus,Urine Rare /hpf; Nitrite,Urine Negative (Negative); PH, Urine 5.5 (5.0-8.0); Protein,Urine 2+ (Negative); RBC,Urine >182 /hpf (0-5); Squamous Epithelial Cell,Urine 4 /hpf (0-4); Urobilinogen,Urine <2.0 mg/dL (<2.0); WBC,Urine >182 /hpf (0-5)
[2021-05-17 20:36] LABS: Glucose,Whole Blood 137 mg/dL (75-99)
[2021-05-17] MEDS ORDERED: ATORVASTATIN 40 MG TAB PO SCH (21:00)
--- NOTE | 2021-05-17 21:41 | CONS ---
CONSULTATION REASON FOR CONSULT: End-stage renal disease. HISTORY OF PRESENT ILLNESS: Patient is a 76-year-old male with end-stage renal disease, on peritoneal dialysis. Patient was admitted to the hospital with mental status changes, not feeling well, increased weakness. He has had previous admissions to rehab with improvement in overall condition. Whenever patient has been in rehab, he has required temporary hemodialysis. This morning, he remains confused. The patient had some abdominal pain as well. However, there is no evidence of peritonitis. His fluid had been clear even prior to admission. The patient's Covid PCR was negative. PAST MEDICAL HISTORY: Significant for COPD, type 2 diabetes, hypertension, obstructive sleep apnea, previous admissions for increased weakness and debility, chronic atrial fibrillation, BPH. PAST SURGICAL HISTORY: AV fistula, PD catheter placement, right shoulder repair, pacemaker placement. SOCIAL HISTORY: Patient is a former smoker. No history of drug abuse or alcohol abuse. MEDICATIONS: Medications prior to admission included Lipitor, Maureen-Chris, PhosLo, Sensipar, Cymbalta, Singulair, sodium bicarb, Eliquis, Xolair, Protonix, Flomax, Norvasc and insulin. ALLERGIES: INCLUDE LEVAQUIN, SULFA. REVIEW OF SYSTEMS: As per HPI. Other systems negative. EXAMINATION: Comfortable, awake. He is confused, not in any acute distress. Blood pressure 152/72, heart rate 72 per minute. He is afebrile. Examination of the HEART S1, S2. Examination of the LUNGS, bilateral breath sounds are heard. ABDOMEN is soft, nontender. Examination lower EXTREMITIES shows no evidence of edema. [employer] exam shows patient moving all 4 extremities. He is confused. LAB: Show hemoglobin 11.5 sodium 131, potassium 3.1, BUN 29, creatinine 7.45. Troponin 0.056. ASSESSMENT: 1. End stage renal disease, on peritoneal dialysis, continue current PD exchanges. No evidence of peritonitis. 2. Hypokalemia status post replacement. 3. Mental status changes, etiology not clear. Neurology has been consulted. 4. Generalized debility. 5. History of chronic atrial fibrillation. 6. CKD mineral bone disorder. PLAN: Repeat labs in a.m. Discontinue sodium bicarb. MMODL / IJN: [id number] /
[2021-05-18] MEDS: DIALYSIS (PERIT 1.5%) 2,500 ML 37.5 G/2,500 ML BAG INTRAPERIT SCH ×3 (00:35→12:10)
[2021-05-18] MEDS: Insulin Aspart (For Pump) 100 UNIT/ML VIAL SQ-PUMP SCH (04:49)
[2021-05-18 07:28] LABS: Glucose,Whole Blood 194 mg/dL (75-99)
[2021-05-18] MEDS: CALCIUM ACETATE 667 MG TAB PO SCH ×2 (08:00→13:17)
[2021-05-18] MEDS: NICOTINE 21MG/24HR PATCH TRANSDERM SCH (08:01)
[2021-05-18] MEDS: INSULIN ASPART (NovoLOG) 100 UNIT/ML VIAL SQ SCH ×2 (08:01→13:17)
[2021-05-18] MEDS: DULoxetine HCL 60 MG CAPSULE.DR PO SCH (08:01)
[2021-05-18] MEDS: PANTOPRAZOLE 40 MG TABLET PO SCH (08:01)
[2021-05-18] MEDS: amLODIPine 5 MG TAB PO SCH ×2 (08:01→13:31)
[2021-05-18] MEDS: APIXABAN 2.5 MG TABLET PO SCH (08:01)
[2021-05-18 10:04] LABS: Anion Gap 13.5 mmol/L (10.00-18.00); Carbon Dioxide 26.5 mmol/L (20.0-27.5); Potassium 3.2 mmol/L (3.5-5.5)
[2021-05-18] MEDS: Acetaminophen-Codeine 300-30mg TAB PO PRN (10:25)
--- NOTE | 2021-05-18 10:31 | P.DS ---
Providers Date of admission: 05/16/21 13:30 Expected date of discharge: 05/18/21 Attending physician: Dmitriy Pool Consults: 05/16/21 13:28 Consult Physician Urgent Consulting Provider: Ashly Michael Consult Reason/Comments: Peritoneal dialysis Do you want consulting provider notified?: Yes 05/17/21 06:03 Consult Physician Routine Consulting Provider: Tor Gutierrez Consult Reason/Comments: change in Mental status Do you want consulting provider notified?: Yes Primary care physician: Kiel Wang [facility] Course: HISTORY OF PRESENT ILLNESS This is a 76-year-old patient of Dr. Wang with a past medical history significant for COPD, diabetes mellitus2, and stage renal disease on CAPD, hypertension, chronic atrial fibrillation, sick sinus syndrome status post single-chamber permanent pacemaker, BPH, hyperlipidemia, gastroesophageal reflux disease, recurrent depression, vitamin D deficiency, obstructive sleep apnea. patient was in the hospital a few weeks ago for full, abnormal balance and gait, not been able to ambulate and walk was in [facility] for 3 weeks to do physical therapy ended up going back home. Patient does CAPD 4 end-stage renal disease and him and his are able to manage well at home. In the lost few days according to he become with slight declining condition with severe fatigue tiredness significant altered mental status he is not doing as well. Apparently patient had is CAPD this morning his went to see him after the cycle throughout the night she noted that he had significant altered mental status just not thinking straight more confusion with worsening symptoms. Ended up calling 911 and brought him to the emergency department at [facility] where was seen and evaluated he de clined any abdominal pain, no chest pain or shortness of breath and nausea vomiting he still having mild diarrhea on and off he is not making much urine anymore with no burning discomfort or changing color lately. Was seen and evaluated his white blood count was 7.9 with hemoglobin 11.5. His chemistry showed creatinine of 7.45 with bun of 29 blood sugar was normal at the time his troponin was mildly elevated at 0.056 with alk phos of 200. COVID-19 was negative. Ended up going for chest x-ray which showed cardiomegaly with tiny pleural effusion versus atelectasis with possible aortic ectasia of the descending aorta. CT of the brain shows degenerative and not specific white matter change most typical remote ischemia with central ventricular the patient be associated with possible normal pressure hydrocephalus. Also there is still faint hyperdensity along the frontal lobe anterior which is felt to be most likely artifact. Slight increased discomfort in the abdominal area high suspicion for pericardial infection or peritonitis specially for his CAPD. Apparently nephrology Dr. Michael was contacted and decided not to start him on any antibiotic yet but to do his PD fluid analysis first before we treat in the meanwhile to watch for any worsening symptoms. Patient be hospitalized at this point for observation and management. With the finding in the brain CAT scan consistent with possible normal pressure hydrocephalus patient required to be seen by one of the specialized neurologist but will be evaluated by neurology in the hospital initially. 05/17: Patient continues to have confusion. Unable to locate insulin pump on his abdomen and patient is not sure but he believes that it is at home. patient will be started on NovoLog scale only for now. A1c was 7.1 04/10/2021. Not recall anything that happened yesterday at bringing him into the hospital. He is requesting a nicotine patch will be ordered. PT and OT will be ordered. He has been afebrile, heart rate 73, blood pressure 181/67, pulse ox 93% on room air. CAPD as managed by Dr. Michael. There is also consult in place with neurology. Blood culture is status received as well as peritoneal fluid cultures. 05/18: Patient has been seen by neurology for altered mental status most likely delirium possible mild metabolic encephalopathy. With recommendations for lab work, evaluate for UTI, continue eliquis and Lipitor. Urinalysis was obtained yesterday afternoon by straight cath which revealed dark brown turbid, blood large, leukoesterase large, RBCs greater than 182, wbc's greater than 182, WBC clumps many. Bacteria few. Blood culture no growth at 24 hours 1 specimen. Peritoneal fluid is in progress and urine culture in progress. Patient has been seen and followed by nephrology and continued on CAPD. Dr. Pool attempted to call patient's on both listed phone numbers, message left to call back. Patient's discharge plan is to return home with his and VNA in place. DISCHARGE DIAGNOSES 1. Metabolic encephalopathy possibly related to UTI 2. End-stage renal disease on CAPD. 3. Recent treatment for urinary tract infection. 4. Chronic atrial fibrillation. 5. Diabetes mellitus type II, insulin requiring. 6. COPD. 7. Hypertension, stable. 8. BPH. 9. Obstructive sleep apnea. 10. Hyperlipidemia. 11. Chronic kidney disease mineral bone disorder. 12. Sick sinus syndrome status post single-chamber permanent pacemaker. 13. Recurrent depression. 14. Dementia. 15. Gastroesophageal reflux disease DISCHARGE PLAN Return home with VNA Greater than 35 minutes was utilized and coordinating patient's discharge. Impression and plan of care have been directed as dictated by the signing physician. Jyoti Peraza nurse practitioner acting as scribe for signing physician. Patient Condition at Discharge: Good Plan - Discharge Summary Discharge Rx Participant: No New Discharge Prescriptions: New Cefuroxime [Ceftin] 250 mg PO BID 10 Days #20 tab Acetaminophen-Codeine 300-30mg [Tylenol w/codeine #3] 1 each PO Q6HR PRN #12 tab PRN Reason: pain Continue Maureen-Chris 1 tab PO DAILY@1700 QUEtiapine FUMARATE [SEROquel] 25 mg PO DAILY@1700 Atorvastatin Calcium [Lipitor] 40 mg PO HS Nicotine Polacrilex [Nicorette] 4 mg BUCCAL Q2H PRN PRN Reason: SMOKING CESSATION Calcium Acetate [PhosLo] 1,334 mg PO AC-TID Cholecalciferol (Vitamin D3) [Vitamin D3 (125 MCG = 5,000 IU)] 125 mcg PO DAILY@1700 amLODIPine [Norvasc] 5 mg PO BID@0900,1400 Tamsulosin [Flomax] 0.4 mg PO DAILY@1400 DULoxetine HCL [Cymbalta] 60 mg PO DAILY Cinacalcet HCl [Sensipar] 90 mg PO MOWEFR Sodium Bicarbonate Tab 650 mg PO DAILY@1700 Montelukast [Singulair] 10 mg PO HS@1700 Omalizumab [Xolair] 300 mg SQ Q28D Insulin Aspart (For Pump) [NovoLOG (For Pump)] 0.01 unit SQ-PUMP CONTINUOUS Pantoprazole [Protonix] 40 mg PO DAILY Midodrine [ProAmatine] 5 mg PO BID@0900,1700 PRN PRN Reason: low bp Apixaban [Eliquis] 2.5 mg PO BID@0900,1700 Discharge Medication List Maureen-Chris 1 tab PO DAILY@1700 06/17/18 [History] Atorvastatin Calcium [Lipitor] 40 mg PO HS 02/16/20 [History] QUEtiapine FUMARATE [SEROquel] 25 mg PO DAILY@1700 02/16/20 [History] Nicotine Polacrilex [Nicorette] 4 mg BUCCAL Q2H PRN 02/19/20 [History] Calcium Acetate [PhosLo] 1,334 mg PO AC-TID 11/26/20 [History] Cinacalcet HCl [Sensipar] 90 mg PO MOWEFR 11/26/20 [History] DULoxetine HCL [Cymbalta] 60 mg PO DAILY 11/26/20 [History] Montelukast [Singulair] 10 mg PO HS@1700 03/28/21 [History] Sodium Bicarbonate Tab 650 mg PO DAILY@1700 03/28/21 [History] Apixaban [Eliquis] 2.5 mg PO BID@0900,1700 05/16/21 [History] Cholecalciferol (Vitamin D3) [Vitamin D3 (125 MCG = 5,000 IU)] 125 mcg PO DAILY@1700 05/16/21 [History] Insulin Aspart (For Pump) [NovoLOG (For Pump)] 0.01 unit SQ-PUMP CONTINUOUS 05/16/21 [History] Midodrine [ProAmatine] 5 mg PO BID@0900,1700 PRN 05/16/21 [History] Omalizumab [Xolair] 300 mg SQ Q28D 05/16/21 [History] Pantoprazole [Protonix] 40 mg PO DAILY 05/16/21 [History] Tamsulosin [Flomax] 0.4 mg PO DAILY@1400 05/16/21 [History] amLODIPine [Norvasc] 5 mg PO BID@0900,1400 05/16/21 [History] Acetaminophen-Codeine 300-30mg [Tylenol w/codeine #3] 1 each PO Q6HR PRN #12 tab 05/18/21 [Rx] Cefuroxime [Ceftin] 250 mg PO BID 10 Days #20 tab 05/18/21 [Rx] Follow up Appointment(s)/Referral(s): Kiel Wang DO [Primary Care Provider] - 1 Week VNA Visiting Nurse, [NON-STAFF] - 1 Week Discharge Disposition: HOME WITH HOME HEALTH SERVICES
[2021-05-18] MEDS ORDERED: POTASSIUM CHLORIDE ER 20 MEQ TAB.ER PO STA (12:07)
[2021-05-18 13:01] LABS: Glucose,Whole Blood 173 mg/dL (75-99)
[2021-05-18] MEDS: TAMSULOSIN 0.4 MG CAP.ER.24H PO SCH (13:31)
[2021-05-18 13:34] VITALS: BP 172/71; PULSE 68; RESP 16; TEMP 98.6
--- NOTE | 2021-05-18 18:09 | PN ---
PROGRESS NOTE The patient is seen for followup for end-stage renal disease. He was admitted with mental status changes. He was found to have a urinary tract infection, currently maintained on antibiotics. PD fluid has been clear. Plans are for discharge home and the patient will continue with his PD. EXAMINATION: Today, blood pressure was elevated 172/64, heart rate 58 per minute, he is afebrile. Examination of the heart S1, S2. Examination of the lungs, bilateral breath sounds are heard. Abdomen is soft, nontender. Examination of lower extremities shows no significant edema. RECORDS MANAGER exam shows patient is moving all 4 extremities. ASSESSMENT: 1. End stage renal disease on peritoneal dialysis, continue current PD exchanges. 2. Urinary tract infection, maintained on antibiotics. 3. Hypokalemia. We will replace. 4. Mental status changes, possibly related to UTI, currently improved. PLAN: Patient can be discharged home from nephrology standpoint, continue with the PD exchanges. MMODL / IJN: [id number] /
[2021-05-19 08:56] LABS: Methylmalonic Acid 1.05 umol/L (<0.40)
== END 2021-05-18 14:59 | disposition home health service (06) | DRG 689 ==
LOC: EC 09:31 → 5NMEDONC 13:30
PROVIDERS: ADMIT Internal Medicine Geriatric Medicine; ATTEND Internal Medicine Geriatric Medicine
PROC: 3E1M39Z Irrigation of Peritoneal Cavity using Dialysate, Percutaneous Approach (ICD-10-PCS; principal; 2021-05-16)
DX: N39.0 Urinary tract infection, site not specified (principal); G93.41 Metabolic encephalopathy; N18.6 End stage renal disease; I13.11 Hypertensive heart and chronic kidney disease without heart failure, with stage 5 chronic kidney disease, or end stage renal disease; I48.20 Chronic atrial fibrillation, unspecified; G91.2 (Idiopathic) normal pressure hydrocephalus; F33.9 Major depressive disorder, recurrent, unspecified; E83.9 Disorder of mineral metabolism, unspecified; I49.5 Sick sinus syndrome; E11.22 Type 2 diabetes mellitus with diabetic chronic kidney disease; E11.42 Type 2 diabetes mellitus with diabetic polyneuropathy; F03.90 Unspecified dementia, unspecified severity, without behavioral disturbance, psychotic disturbance, mood disturbance, and anxiety; J44.9 Chronic obstructive pulmonary disease, unspecified; Z79.4 Long term (current) use of insulin; Z99.2 Dependence on renal dialysis; Z20.822 Contact with and (suspected) exposure to COVID-19; E87.6 Hypokalemia; E83.42 Hypomagnesemia; E78.5 Hyperlipidemia, unspecified; G47.33 Obstructive sleep apnea (adult) (pediatric); K21.9 Gastro-esophageal reflux disease without esophagitis; E55.9 Vitamin D deficiency, unspecified; N40.0 Benign prostatic hyperplasia without lower urinary tract symptoms; E66.9 Obesity, unspecified; Z68.32 Body mass index [BMI] 32.0-32.9, adult; Z79.01 Long term (current) use of anticoagulants; Z79.899 Other long term (current) drug therapy; Z96.41 Presence of insulin pump (external) (internal); Z87.891 Personal history of nicotine dependence; Z90.49 Acquired absence of other specified parts of digestive tract; Z87.19 Personal history of other diseases of the digestive system; Z95.0 Presence of cardiac pacemaker; Z87.39 Personal history of other diseases of the musculoskeletal system and connective tissue; Z98.890 Other specified postprocedural states; Z88.1 Allergy status to other antibiotic agents; Z88.2 Allergy status to sulfonamides; Z83.3 Family history of diabetes mellitus; Z82.49 Family history of ischemic heart disease and other diseases of the circulatory system; Z82.5 Family history of asthma and other chronic lower respiratory diseases; Z83.79 Family history of other diseases of the digestive system
CPT/HCPCS: 36415; 70450; 71046; 80051; 80053; 81001; 82140; 82607; 82746; 83605; 83735; 83921; 84207; 84425; 84443; 84484; 85025; 87040; 87070; 87086; 87205; 87635; 89050; 93005; 96374; 96375; 99285

== ENCOUNTER 2021-05-22 10:47 | Inpatient (IN) | payer MEDICARE ==
[2021-05-22] MEDS ORDERED: DEXTROSE 50% SYRINGE 50 ML IVP STA ×2 (10:59→11:53)
[2021-05-22 11:07] LABS: Glucose,Whole Blood 54 mg/dL (75-99)
--- NOTE | 2021-05-22 11:07 | ED ---
General Adult HPI - General Chief complaint: Altered Mental Status Stated complaint: altered mental status Time Seen by Provider: 05/22/21 10:54 Source: patient, EMS, RN notes reviewed, old records reviewed Mode of arrival: EMS Limitations: altered mental status - History of Present Illness Initial comments: 76-year-old male presenting with altered mental status, worsening confusion, hypoglycemia. Patient was noted to be hypoglycemic by EMS at 35. His insulin infusion was discontinued. Apparently he has had some issues with urinary tract infection. He is on dialysis currently. He is uncertain when he received his last treatment. He is able to give some simple historical details but not able to give a complete history. Apparently according to EMS this has been ongoing for some time. - Related Data Home Medications Medication Instructions Recorded Confirmed Maureen-Chris 1 tab PO DAILY@1700 06/17/18 05/22/21 Atorvastatin Calcium [Lipitor] 40 mg PO HS 02/16/20 05/22/21 QUEtiapine FUMARATE [SEROquel] 25 mg PO DAILY@1700 02/16/20 05/22/21 Nicotine Polacrilex [Nicorette] 4 mg BUCCAL Q2H PRN 02/19/20 05/22/21 Calcium Acetate [PhosLo] 1,334 mg PO AC-TID 11/26/20 05/22/21 Cinacalcet HCl [Sensipar] 90 mg PO MOWEFR 11/26/20 05/22/21 DULoxetine HCL [Cymbalta] 60 mg PO DAILY 11/26/20 05/22/21 Montelukast [Singulair] 10 mg PO HS@1700 03/28/21 05/22/21 Sodium Bicarbonate Tab 650 mg PO DAILY@1700 03/28/21 05/22/21 Apixaban [Eliquis] 2.5 mg PO BID@0900,1700 05/16/21 05/22/21 Cholecalciferol (Vitamin D3) 125 mcg PO DAILY@1700 05/16/21 05/22/21 [Vitamin D3 (125 MCG = 5,000 IU)] Insulin Aspart (For Pump) [NovoLOG 0.01 unit SQ-PUMP CONTINUOUS 05/16/21 05/22/21 (For Pump)] Midodrine [ProAmatine] 5 mg PO BID@0900,1700 PRN 05/16/21 05/22/21 Omalizumab [Xolair] 300 mg SQ Q28D 05/16/21 05/22/21 Pantoprazole [Protonix] 40 mg PO DAILY 05/16/21 05/22/21 Tamsulosin [Flomax] 0.4 mg PO DAILY@1400 05/16/21 05/22/21 amLODIPine [Norvasc] 5 mg PO BID@0900,1400 05/16/21 05/22/21 Acetaminophen-Codeine 300-30mg 1 tab PO Q6HR PRN 05/22/21 05/22/21 [Tylenol w/codeine #3] HYDROcodone/APAP 5-325MG [Harmans 1 tab PO Q4HR PRN 05/22/21 05/22/21 5-325] traMADol HCL 50 mg PO DAILY PRN 05/22/21 05/22/21 Previous Rx's Medication Instructions Recorded Cefuroxime [Ceftin] 250 mg PO BID 10 Days #20 tab 05/18/21 Allergies Allergy/AdvReac Type Severity Reaction Status Date / Time levofloxacin [From Levaquin] Allergy Rash/Hives Verified 05/22/21 11:54 Sulfa (Sulfonamide Allergy Rash/Hives Verified 05/22/21 11:54 Antibiotics) Review of Systems ROS Statement: Those systems with pertinent positive or pertinent negative responses have been documented in the HPI. ROS Other: All systems not noted in ROS Statement are negative. Past Medical History Past Medical History: COPD, Diabetes Mellitus, Dialysis, Hypertension, Prostate Disorder, Renal Disease, Sleep Apnea/CPAP/BIPAP, Syncope Additional Past Medical History / Comment(s): BPH, uses CPAP, Peritoneal jacob lysis History of Any Multi-Drug Resistant Organisms: None Reported Past Surgical History: Cholecystectomy, Heart Catheterization, Hernia Repair, Orthopedic Surgery, Pacemaker Additional Past Surgical History / Comment(s): L AV fistula placed on 05/29/2016 [facility], right shoulder proximal humerus repair Past Anesthesia/Blood Transfusion Reactions: No Reported Reaction Type of Cardiac Device: Permanent Pacemaker Device Placement Date:: 05/10/2018 Past Psychological History: Depression Smoking Status: Former smoker Past Alcohol Use History: None Reported Past Drug Use History: None Reported - Past Family History Father History Unknown: Yes Family Medical History: Diabetes Mellitus, Myocardial Infarction ([place]) Additional Family Medical History / Comment(s): at 76 Mother History Unknown: Yes Family Medical History: Congestive Heart Failure (CHF), Diabetes Mellitus Additional Family Medical History / Comment(s): lived to be 97 Brother(s) History Unknown: Yes Family Medical History: COPD, Liver Disease Daughter(s) History Unknown: Yes General Exam Limitations: altered mental status General appearance: in no apparent distress, lethargic Head exam: Present: atraumatic, normocephalic Eye exam: Present: normal appearance, PERRL ENT exam: Present: mucous membranes dry Neck exam: Present: normal inspection. Absent: tenderness, meningismus Respiratory exam: Present: rhonchi. Absent: respiratory distress Cardiovascular Exam: Present: regular rate, normal rhythm GI/Abdominal exam: Present: soft. Absent: distended, tenderness, guarding, rebound Extremities exam: Present: normal capillary refill. Absent: pedal edema Neurological exam: Present: alert Skin exam: Present: warm, dry, pallor Course Vital Signs 05/22/21 05/22/21 10:48 12:04 Temperature 96.5 F L Pulse Rate 65 55 L Respiratory 18 18 Rate Blood Pressure 111/66 111/64 O2 Sat by Pulse 100 100 Oximetry EKG Findings - EKG Comments: EKG Findings:: EKG: Paced rhythm, rate of 54, QRS duration 164, QTC 542. Medical Decision Making - Medical Decision Making 76-year-old male with worsening confusion this has been progressive over some time. He said recurrent UTI not currently on antibiotics according to his was at bedside. He was brought in by paramedics found to be hypoglycemic in the 30s. This does respond to dextrose in the emergency department and stabilizes. Patient has a chest x-ray which shows mild CHF. Patient's has normal white blood cell count, stable hemoglobin, he has a hyponatremia and hypokalemia as well as chronic renal failure and currently on peritoneal dialysis. Patient does have a left upper extremity fistula which is working. He will be admitted for confusion, hypoglycemia. He will possibly need placement. Case discussed with Dr. Xiong who will admit. - Lab Data Result diagrams: 05/22/21 11:22 05/22/21 11:22 Lab Results 05/22/21 05/22/21 05/22/21 Range/Units 10:56 11:17 11:22 WBC 8.3 (3.8-10.6) k/uL RBC 3.42 L (4.30-5.90) m/uL Hgb 11.2 L (13.0-17.5) gm/dL Hct 33.1 L (39.0-53.0) % MCV 96.8 (80.0-100.0) fL MCH 32.7 (25.0-35.0) pg MCHC 33.8 (31.0-37.0) g/dL RDW 14.3 (11.5-15.5) % Plt Count 283 (150-450) k/uL MPV 8.2 Neutrophils % 77 % Lymphocytes % 8 % Monocytes % 7 % Eosinophils % 6 % Basophils % 1 % Neutrophils # 6.3 (1.3-7.7) k/uL Lymphocytes # 0.6 L (1.0-4.8) k/uL Monocytes # 0.6 (0-1.0) k/uL Eosinophils # 0.5 (0-0.7) k/uL Basophils # 0.1 (0-0.2) k/uL Poikilocytosis Slight PT (9.0-12.0) sec INR (<1.2) APTT (22.0-30.0) sec Sodium (137-145) mmol/L Potassium (3.5-5.1) mmol/L Chloride (98-107) mmol/L Carbon Dioxide (22-30) mmol/L Anion Gap mmol/L BUN (9-20) mg/dL Creatinine (0.66-1.25) mg/dL Est GFR (CKD-EPI)AfAm (>60 ml/min/1.73 sqM) Est GFR (CKD-EPI)NonAf (>60 ml/min/1.73 sqM) Glucose (74-99) mg/dL POC Glucose (mg/dL) 54 L 90 (75-99) mg/dL POC Glu Testing Tech Bonita Soliman Ashley Calcium (8.4-10.2) mg/dL Total Bilirubin (0.2-1.3) mg/dL AST (17-59) U/L ALT (4-49) U/L Alkaline Phosphatase (38-126) U/L Total Protein (6.3-8.2) g/dL Albumin (3.5-5.0) g/dL 05/22/21 05/22/21 05/22/21 Range/Units 11:22 11:22 11:45 WBC (3.8-10.6) k/uL RBC (4.30-5.90) m/uL Hgb (13.0-17.5) gm/dL Hct (39.0-53.0) % MCV (80.0-100.0) fL MCH (25.0-35.0) pg MCHC (31.0-37.0) g/dL RDW (11.5-15.5) % Plt Count (150-450) k/uL MPV Neutrophils % % Lymphocytes % % Monocytes % % Eosinophils % % Basophils % % Neutrophils # (1.3-7.7) k/uL Lymphocytes # (1.0-4.8) k/uL Monocytes # (0-1.0) k/uL Eosinophils # (0-0.7) k/uL Basophils # (0-0.2) k/uL Poikilocytosis PT 11.8 (9.0-12.0) sec INR 1.1 (<1.2) APTT 29.1 (22.0-30.0) sec Sodium 126 L (137-145) mmol/L Potassium 3.1 L (3.5-5.1) mmol/L Chloride 88 L (98-107) mmol/L Carbon Dioxide 31 H (22-30) mmol/L Anion Gap 7 mmol/L BUN 26 H (9-20) mg/dL Creatinine 6.14 H (0.66-1.25) mg/dL Est GFR (CKD-EPI)AfAm 9 (>60 ml/min/1.73 sqM) Est GFR (CKD-EPI)NonAf 8 (>60 ml/min/1.73 sqM) Glucose 90 (74-99) mg/dL POC Glucose (mg/dL) 72 L (75-99) mg/dL POC Glu Testing Tech ID Bonita Aquino Calcium 8.2 L (8.4-10.2) mg/dL Total Bilirubin 0.8 (0.2-1.3) mg/dL AST 48 (17-59) U/L ALT 27 (4-49) U/L Alkaline Phosphatase 268 H (38-126) U/L Total Protein 5.5 L (6.3-8.2) g/dL Albumin 2.6 L (3.5-5.0) g/dL 05/22/21 Range/Units 12:22 WBC (3.8-10.6) k/uL RBC (4.30-5.90) m/uL Hgb (13.0-17.5) gm/dL Hct (39.0-53.0) % MCV (80.0-100.0) fL MCH (25.0-35.0) pg MCHC (31.0-37.0) g/dL RDW (11.5-15.5) % Plt Count (150-450) k/uL MPV Neutrophils % % Lymphocytes % % Monocytes % % Eosinophils % % Basophils % % Neutrophils # (1.3-7.7) k/uL Lymphocytes # (1.0-4.8) k/uL Monocytes # (0-1.0) k/uL Eosinophils # (0-0.7) k/uL Basophils # (0-0.2) k/uL Poikilocytosis PT (9.0-12.0) sec INR (<1.2) APTT (22.0-30.0) sec Sodium (137-145) mmol/L Potassium (3.5-5.1) mmol/L Chloride (98-107) mmol/L Carbon Dioxide (22-30) mmol/L Anion Gap mmol/L BUN (9-20) mg/dL Creatinine (0.66-1.25) mg/dL Est GFR (CKD-EPI)AfAm (>60 ml/min/1.73 sqM) Est GFR (CKD-EPI)NonAf (>60 ml/min/1.73 sqM) Glucose (74-99) mg/dL POC Glucose (mg/dL) 125 H (75-99) mg/dL POC Glu Testing Tech ID Bonita Aquino Calcium (8.4-10.2) mg/dL Total Bilirubin (0.2-1.3) mg/dL AST (17-59) U/L ALT (4-49) U/L Alkaline Phosphatase (38-126) U/L Total Protein (6.3-8.2) g/dL Albumin (3.5-5.0) g/dL Disposition Clinical Impression: Weakness, AMS (altered mental status), Hypoglycemia Disposition: ADMITTED IP TO THIS [facility] Condition: Stable Is patient prescribed a controlled substance at d/c from ED?: No Referrals: Kiel Wang DO [Primary Care Provider] - 1-2 days Decision to Admit Reason: Admit from EC Decision Date: 05/22/21 Decision Time: 12:58
[2021-05-22 11:29] LABS: Basophils # (A) 0.1 k/uL (0-0.2); Basophils % (A) 1 %; Eosinophils # (A) 0.5 k/uL (0-0.7); Eosinophils % (A) 6 %; HCT 33.1 % (39.0-53.0); HGB 11.2 gm/dL (13.0-17.5); Lymphocytes # (A) 0.6 k/uL (1.0-4.8); Lymphocytes % (A) 8 %; MCH 32.7 pg (25.0-35.0); MCHC 33.8 g/dL (31.0-37.0); MCV 96.8 fL (80.0-100.0); Mean Platelet Volume 8.2; Monocytes # (A) 0.6 k/uL (0-1.0); Monocytes % (A) 7 %; Neutrophils # (A) 6.3 k/uL (1.3-7.7); Neutrophils % (A) 77 %; Platelet Count 283 k/uL (150-450); Poikilocytosis Slight; RBC 3.42 m/uL (4.30-5.90); RDW 14.3 % (11.5-15.5); WBC 8.3 k/uL (3.8-10.6)
[2021-05-22 11:29] LABS: Glucose,Whole Blood 90 mg/dL (75-99)
--- NOTE | 2021-05-22 11:53 | XR ---
EXAMINATION TYPE: XR chest 1V portable DATE OF EXAM: 05/22/2021 COMPARISON: 05/16/2021 HISTORY: Altered mental status TECHNIQUE: Single frontal view of the chest is obtained. FINDINGS: Cardiomegaly with cardiac device and diffuse interstitial pattern with bilateral small eff usions. Perihilar infiltrates. Calcifications in the left hilum likely related to lymph nodes. Postsu rgical change right shoulder and arthropathy bilateral shoulders and diffuse osteopenia. IMPRESSION: 1. Correlate for CHF otherwise consider diffuse interstitial pneumonia.
[2021-05-22 11:55] LABS: Albumin 2.6 g/dL (3.5-5.0); Calcium 8.2 mg/dL (8.4-10.2); Potassium 3.1 mmol/L (3.5-5.1); Total Bilirubin 0.8 mg/dL (0.2-1.3); Total Protein 5.5 g/dL (6.3-8.2)
[2021-05-22 11:56] LABS: Glucose,Whole Blood 72 mg/dL (75-99)
[2021-05-22 12:24] LABS: INR 1.1 (<1.2); Partial Thromboplastin Time 29.1 sec (22.0-30.0); Prothrombin Time 11.8 sec (9.0-12.0)
[2021-05-22 12:24] LABS: Glucose,Whole Blood 125 mg/dL (75-99)
[2021-05-22] MEDS ORDERED: cefTRIAXone IN SWFI 1,000 MG/10 ML SYRINGE IVP STA (12:55)
[2021-05-22] MEDS ORDERED: NALOXONE 0.4 MG/ML 1 ML VIAL IV PRN (12:56)
[2021-05-22] MEDS ORDERED: ACETAMINOPHEN TAB 325 MG TAB PO PRN (12:56)
[2021-05-22 13:16] LABS: Glucose,Whole Blood 111 mg/dL (75-99)
[2021-05-22 14:43] LABS: Glucose,Whole Blood 116 mg/dL (75-99)
[2021-05-22 16:40] LABS: Glucose,Whole Blood 150 mg/dL (75-99)
[2021-05-22] MEDS ORDERED: HYDROcodone/APAP 5-325MG 1 EACH TAB PO PRN (19:37)
[2021-05-22 20:14] LABS: Glucose,Whole Blood 197 mg/dL (75-99)
[2021-05-22] MEDS: CINACALCET 30 MG TAB PO SCH (20:26)
[2021-05-22] MEDS: ATORVASTATIN 40 MG TAB PO SCH (20:26)
[2021-05-22] MEDS: INSULIN ASPART (NovoLOG) 100 UNIT/ML VIAL SQ SCH (20:26)
[2021-05-22] MEDS: DIALYSIS (PERIT 1.5%) 2,000 ML 30 G/2,000 ML BAG INTRAPERIT SCH (21:38)
[2021-05-23 01:20] LABS: Appearance,BF Clear; Color,BF Colorless
[2021-05-23 01:21] LABS: Nucleated Cells, Body Fluid 4 /uL; RBC, Body Fluid 118 /uL
[2021-05-23] MEDS: DIALYSIS (PERIT 1.5%) 2,000 ML 30 G/2,000 ML BAG INTRAPERIT SCH ×4 (03:03→22:49)
[2021-05-23 07:44] LABS: Glucose,Whole Blood 206 mg/dL (75-99)
[2021-05-23] MEDS: APIXABAN 2.5 MG TABLET PO SCH ×2 (08:04→17:34)
[2021-05-23] MEDS: amLODIPine 5 MG TAB PO SCH ×2 (08:04→14:48)
[2021-05-23] MEDS: CALCIUM ACETATE 667 MG TAB PO SCH ×3 (08:04→17:36)
[2021-05-23] MEDS: INSULIN ASPART (NovoLOG) 100 UNIT/ML VIAL SQ SCH ×4 (08:04→22:49)
[2021-05-23] MEDS: PANTOPRAZOLE 40 MG TABLET PO SCH (08:04)
[2021-05-23] MEDS ORDERED: MIDODRINE 5 MG TAB PO PRN (09:00)
[2021-05-23 09:29] LABS: African American GFR (CKD) 10 (>60 ml/min/1.73 sqM); Anion Gap 10 mmol/L; Blood Urea Nitrogen 26 mg/dL (9-20); Carbon Dioxide 29 mmol/L (22-30); Chloride 86 mmol/L (98-107); Glucose 218 mg/dL (74-99); Magnesium 1.4 mg/dL (1.6-2.3); Non-African American GFR(CKD) 8 (>60 ml/min/1.73 sqM); Phosphorus 3.6 mg/dL (2.5-4.5); Potassium 3.9 mmol/L (3.5-5.1); Sodium 125 mmol/L (137-145)
--- NOTE | 2021-05-23 09:44 | P.NPCON ---
History of Present Illness - Reason for Consult end stage renal disease - History of Present Illness Reason for consultation: End-stage renal disease History of present illness: Patient is a 76-year-old male seen in renal consultation for end-stage renal disease. He is maintained on peritoneal dialysis. Patient was seen and examined in the emergency room. Patient was brought to the hospital due to ge neralized weakness and confusion. Patient was found to be hypoglycemic by the EMS with blood sugar of 35. From the records it appears that the is also concerned about UTI. He tested negative for coronavirus. No problems with PD exchanges per the nurse. Patient's dialysate is clear with white cell count of 4. He is receiving antibiotics. Hemodynamically stable. Afebrile. Vital signs are stable. General: On nasal cannula. HEENT: Head exam is unremarkable. LUNGS: Breath sounds decreased. HEART: Rate and Rhythm are regular. ABDOMEN: Soft, no distention. EXTREMITITES: No edema. Past Medical History Past Medical History: COPD, Diabetes Mellitus, Dialysis, Hypertension, Prostate Disorder, Renal Disease, Sleep Apnea/CPAP/BIPAP, Syncope Additional Past Medical History / Comment(s): BPH, uses CPAP, Peritoneal dialysis History of Any Multi-Drug Resistant Organisms: None Reported Past Surgical History: Cholecystectomy, Heart Catheterization, Hernia Repair, Orthopedic Surgery, Pacemaker Additional Past Surgical History / Comment(s): L AV fistula placed on 05/29/2016 [facility], right shoulder proximal humerus repair Past Anesthesia/Blood Transfusion Reactions: No Reported Reaction Type of Cardiac Device: Permanent Pacemaker Device Placement Date:: 05/10/2018 Past Psychological History: Depression Smoking Status: Former smoker Past Alcohol Use History: None Reported Past Drug Use History: None Reported - Past Family History Father History Unknown: Yes Family Medical History: Diabetes Mellitus, Myocardial Infarction ([place]) Additional Family Medical History / Comment(s): at 76 Mother History Unknown: Yes Family Medical History: Congestive Heart Failure (CHF), Diabetes Mellitus Additional Family Medical History / Comment(s): lived to be 97 Brother(s) History Unknown: Yes Family Medical History: COPD, Liver Disease Daughter(s) History Unknown: Yes Medications and Allergies Home Medications Medication Instructions Recorded Confirmed Type Maureen-Chris 1 tab PO DAILY@1700 06/17/18 05/22/21 History Atorvastatin Calcium [Lipitor] 40 mg PO HS 02/16/20 05/22/21 History QUEtiapine FUMARATE [SEROquel] 25 mg PO DAILY@1700 02/16/20 05/22/21 History Nicotine Polacrilex [Nicorette] 4 mg BUCCAL Q2H PRN 02/19/20 05/22/21 History Calcium Acetate [PhosLo] 1,334 mg PO AC-TID 11/26/20 05/22/21 History Cinacalcet HCl [Sensipar] 90 mg PO MOWEFR 11/26/20 05/22/21 History DULoxetine HCL [Cymbalta] 60 mg PO DAILY 11/26/20 05/22/21 History Montelukast [Singulair] 10 mg PO HS@1700 03/28/21 05/22/21 History Sodium Bicarbonate Tab 650 mg PO DAILY@1700 03/28/21 05/22/21 History Apixaban [Eliquis] 2.5 mg PO BID@0900,1700 05/16/21 05/22/21 History Cholecalciferol (Vitamin D3) 125 mcg PO DAILY@1700 05/16/21 05/22/21 History [Vitamin D3 (125 MCG = 5,000 IU)] Insulin Aspart (For Pump) [NovoLOG 0.01 unit SQ-PUMP CONTINUOUS 05/16/21 05/22/21 History (For Pump)] Midodrine [ProAmatine] 5 mg PO BID@0900,1700 PRN 05/16/21 05/22/21 History Omalizumab [Xolair] 300 mg SQ Q28D 05/16/21 05/22/21 History Pantoprazole [Protonix] 40 mg PO DAILY 05/16/21 05/22/21 History Tamsulosin [Flomax] 0.4 mg PO DAILY@1400 05/16/21 05/22/21 History amLODIPine [Norvasc] 5 mg PO BID@0900,1400 05/16/21 05/22/21 History Cefuroxime [Ceftin] 250 mg PO BID 10 Days #20 tab 05/18/21 05/22/21 Rx Acetaminophen-Codeine 300-30mg 1 tab PO Q6HR PRN 05/22/21 05/22/21 History [Tylenol w/codeine #3] HYDROcodone/APAP 5-325MG [[place] 1 tab PO Q4HR PRN 05/22/21 05/22/21 History 5-325] traMADol HCL 50 mg PO DAILY PRN 05/22/21 05/22/21 History Allergies Allergy/AdvReac Type Severity Reaction Status Date / Time levofloxacin [From Levaquin] Allergy Rash/Hives Verified 05/22/21 11:54 Sulfa (Sulfonamide Allergy Rash/Hives Verified 05/22/21 11:54 Antibiotics) Physical Exam Vitals: Vital Signs Temp Pulse Pulse Resp BP BP Pulse Ox 05/23/21 08:00 66 140/107 100 05/23/21 01:45 64 17 127/67 100 05/22/21 20:00 97 F L 52 L 18 134/60 97 05/22/21 17:45 75 18 123/68 94 L 05/22/21 16:00 55 L 18 107/52 100 05/22/21 15:54 49 L 18 105/53 100 05/22/21 14:36 55 L 18 124/69 99 05/22/21 12:04 55 L 18 111/64 100 05/22/21 10:48 96.5 F L 65 18 111/66 100 Results - Lab Results Most recent lab results Calcium 8.0 mg/dL (8.4-10.2) L 05/23/21 08:45 Phosphorus 3.6 mg/dL (2.5-4.5) 05/23/21 08:45 Magnesium 1.4 mg/dL (1.6-2.3) L 05/23/21 08:45 05/22/21 11:22 05/23/21 08:45 Assessment and Plan Plan: Assessment: 1. End-stage renal disease maintained on peritoneal dialysis. Patient's white cell count was 4 with clear dialysate. Fluid culture is pending. 2. Diabetes with hypoglycemia. Improved. 3. Possible UTI. 4. Chronic A. fib disease mineral bone disease maintained on PhosLo and Sensipar. 5. Hypertension with chronic kidney disease. 6. Hyponatremia secondary to chronic kidney disease. 7. Hypomagnesemia from poor intake. 8. Altered mental status. Likely related to infection. Plan: Maintain 2 L exchanges every 6 hours with 1.5% solution. 1200 mL fluid restriction. Encourage oral intake. Follow-up cultures. Replace magnesium. Repeat labs in the morning. Thank you for the consultation. I will continue to follow the patient with you during his hospital stay.
[2021-05-23] MEDS ORDERED: NICOTINE GUM (POLACRILEX) 2 MG GUM BUCCAL PRN (10:22)
[2021-05-23] MEDS: DULoxetine HCL 60 MG CAPSULE.DR PO SCH (10:43)
[2021-05-23] MEDS: MAGNESIUM SULFATE-D5W PMX 1 GM in DEXTROSE/WATER 1 100ML.BAG IVPB SCH ×2 (11:59→13:54)
[2021-05-23 12:56] LABS: Appearance,Urine Turbid (Clear); Bilirubin,Urine Negative (Negative); Blood,Urine Large (Negative); Color,Urine Dark Brown; Glucose,Urine (UA) Trace (Negative); Ketones,Urine Negative (Negative); Leukocyte Esterase,Urine Large (Negative); Nitrite,Urine Negative (Negative); Protein,Urine 2+ (Negative); RBC,Urine >182 /hpf (0-5); Specific Gravity,Urine 1.019 (1.001-1.035); Urobilinogen,Urine <2.0 mg/dL (<2.0); WBC,Urine >182 /hpf (0-5)
[2021-05-23 13:27] LABS: Glucose,Whole Blood 170 mg/dL (75-99)
[2021-05-23] MEDS: MIDODRINE 5 MG TAB PO SCH ×2 (13:52→17:58)
--- NOTE | 2021-05-23 14:13 | P.HPIM ---
History of Present Illness H&P Date: 05/23/21 HISTORY OF PRESENT ILLNESS This is a 76-year-old patient of Dr. Wang with a past medical history significant for COPD, diabetes mellitus2, end stage renal disease on CAPD, hypertension, chronic atrial fibrillation, sick sinus syndrome status post single-chamber permanent pacemaker, BPH, hyperlipidemia, gastroesophageal reflux disease, recurrent depression, vitamin D deficiency, obstructive sleep apnea. Patient has had several hospitalizations that she air and recently was at [facility] for subacute rehab. Patient now presents with confusion. His states that he has been confused for the past 3-4 days and worsened on Saturday. She states she got a blood sugar in the morning of 127 but EMS obtained a blood sugar of 35. She states he's not been eating well and has not been out of bed since he left [facility] back April 29. She states that she has to have EMS contacted and come to the home and help lift him many times. She denies any fever or chills. Patient has been seen by orthopedic spine and was placed in a back brace which apparently he has not been using. Patient's also states that his blood pressure has had severe fluctuations, normal while he is laying in bed and when he stands it drops. He has been maintained on insulin pump. Patient presented to [facility] emergency center and found to be afebrile, heart rate 65, blood pressure 111/66, pulse ox 100%. EKG is ventricularly paced rhythm. WBC 8.3, hemoglobin 11.2, platelet count 283. Sodium 126, potassium 3.1, chloride 88, CO2 31, BUN 26 and creatinine 6.14. Initial blood sugar was 54 with repeat of 90. Total bilirubin 0.8, AST 48, ALT 27, alkaline phosphatase 268. COVID19 negative. Urinalysis obtained by straight cath was dark brown, turbid, blood large, leukoesterase large, RBCs greater than 182, wbc's greater than 182. Peritoneal fluid was sent for culture. Chest x-ray: Correlate for heart failure otherwise consider diffuse interstitial pneumonia. Patient is seen today in the emergency center waiting for a bed on the [facility] floor, consult in place for nephrology. REVIEW OF SYSTEMS Constitutional: No fever, no chills, no night sweats. No weight change. Reports weakness, reports fatigue reports lethargy. Reports daytime sleepiness. EENT: No headache. No blurred vision or double vision, no loss of vision. No loss of Hearing, no ringing in the ears, no dizziness. No nasal drainage or congestion. No epistaxis. No sore throat. Lungs: No shortness of breath, cough, no sputum production. No wheezing. Cardiovascular: No chest pain, no lower extremity edema. No palpitations. No paroxysmal nocturnal dyspnea. No orthopnea. No lightheadedness or dizziness. No syncopal episodes. Abdominal: No abdominal pain. No nausea, vomiting. No diarrhea. No constipation. No bloody or tarry stools.. No loss of appetite. CAPD. Genitourinary: No dysuria, no frequency, urgency. No urinary retention. Juany ent makes very little urine Musculoskeletal: No myalgias. Reports muscle weakness, reports gait dys function, reports frequent falls. Reports back pain. No neck pain. Integumentary: Reports abrasions and ecchymosis, no lesions. No rash or pruritus. No unusual bruising. No change in hair or nails. Neurologic: No aphasia. No facial droop. Reported change in mentation. No head injury. No headache. No paralysis. No paresthesia. Psychiatric: No depression. No anxiety. No mood swings. Endocrine: Noted abnormal blood sugars. No weight change. No excessive sweating or thirst. No cold intolerance. SOCIAL HISTORY Patient was smoked from age 17 and quit in 2018 he has smoked one pack a day. Patient denies alcohol marijuana or illicit drug use. He lives at home with his . 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 Patient performs CAPD at home. Utilizes a walker. FAMILY HISTORY Patient has 1 brother that from cirrhosis of the liver and one with history of hypertension and heart disease. PHYSICAL EXAMINATION Gen: This is a 76-year-old obese male. He is resting on stretcher and appears to be comfortable and in no acute distress. Patient's is at bedside. HEENT: Head is atraumatic, normocephalic. Pupils equal, round. Sclerae is anicteric. NECK: Supple. No JVD. No lymphadenopathy. No thyromegaly. LUNGS: Clear to auscultation. No wheezes or rhonchi. No intercostal retractions. HEART: Regular rate and rhythm. Systolic murmur. ABDOMEN: Soft. Bowel sounds are present. No masses. No tenderness. EXTREMITIES: No pedal edema. No calf tenderness. Multiple areas of ecchymosis on extremities. NEUROLOGICAL: Patient is awake, alert and oriented x3. Cranial nerves 2 through 12 are grossly intact. ASSESSMENT AND PLAN 1. Metabolic encephalopathy secondary to hypoglycemia, rule out infection. Patient placed on insulin scale only for now. He is status post dextrose 50% 2. Peritoneal fluid sent for culture, urine culture in progress. Obtain CRP, sed rate, calcitonin 2. Severe generalized weakness, fatigue possibly related to multiple comorbidities. PT and OT consults. 3. End-stage renal disease on CAPD. Consult with nephrology. Continue sodium bicarb 650 mg daily 4. L1 transverse vertebral fracture. Patient to be maintained on back brace while out of bed. 5. Chronic atrial fibrillation. Continue eliquis, Lopressor 25 mg as directedPulse rate has been well controlled. 6. Diabetes mellitus type II, insulin requiring uncontrolled with hypoglycemia. S1 scale only for now. 7. COPD. Continue Singulair 10 mg by mouth at bedtime 8. Hypertension, stable. Continue Lopressor as needed. 9. Autonomic hypotension secondary to diabetes. Patient started on midodrine 5 mg 3 times daily. 10. BPH. Continue Flomax 0.4 mg 11. Obstructive sleep apnea. Continue CPAP. 12. Hyperlipidemia. Atorvastatin 40 mg 13. Chronic kidney disease mineral bone disorder. Continue PhosLo 1334 mg 3 times daily. 14. Sick sinus syndrome status post single-chamber permanent pacemaker. 15. Recurrent depression. Continue Cymbalta 60 mg daily, Seroquel 25 mg at bedtime, trazodone 50 mg at bedtime. 16. Dementia. Continue Aricept 5 mg at bedtime. 17. Gastroesophageal reflux disease and GI prophylaxis. Protonix. 18. DVT prophylaxis. Eliquis. Status: Full code Patient will be admitted to the hospital for a minimum of 2 night stay. DISCHARGE PLAN TBD. Consult with PT and OT. Impression and plan of care have been directed as dictated by the signing physician. Jyoti Peraza nurse practitioner acting as scribe for signing physician. Past Medical History Past Medical History: COPD, Diabetes Mellitus, Dialysis, Hypertension, Prostate Disorder, Renal Disease, Sleep Apnea/CPAP/BIPAP, Syncope Additional Past Medical History / Comment(s): BPH, uses CPAP, Peritoneal dialysis History of Any Multi-Drug Resistant Organisms: None Reported Past Surgical History: Cholecystectomy, Heart Catheterization, Hernia Repair, Orthopedic Surgery, Pacemaker Additional Past Surgical History / Comment(s): L AV fistula placed on 05/29/2016 [facility], right shoulder proximal humerus repair Past Anesthesia/Blood Transfusion Reactions: No Reported Reaction Type of Cardiac Device: Permanent Pacemaker Device Placement Date:: 05/10/2018 Past Psychological History: Depression Smoking Status: Former smoker Past Alcohol Use History: None Reported Past Drug Use History: None Reported - Past Family History Father History Unknown: Yes Family Medical History: Diabetes Mellitus, Myocardial Infarction (CT) Additional Family Medical History / Comment(s): at 76 Mother History Unknown: Yes Family Medical History: Congestive Heart Failure (CHF), Diabetes Mellitus Additional Family Medical History / Comment(s): lived to be 97 Brother(s) History Unknown: Yes Family Medical History: COPD, Liver Disease Daughter(s) History Unknown: Yes Medications and Allergies Home Medications Medication Instructions Recorded Confirmed Type Maureen-Chris 1 tab PO DAILY@1700 06/17/18 05/22/21 History Atorvastatin Calcium [Lipitor] 40 mg PO HS 02/16/20 05/22/21 History QUEtiapine FUMARATE [SEROquel] 25 mg PO DAILY@1700 02/16/20 05/22/21 History Nicotine Polacrilex [Nicorette] 4 mg BUCCAL Q2H PRN 02/19/20 05/22/21 History Calcium Acetate [PhosLo] 1,334 mg PO AC-TID 11/26/20 05/22/21 History Cinacalcet HCl [Sensipar] 90 mg PO MOWEFR 11/26/20 05/22/21 History DULoxetine HCL [Cymbalta] 60 mg PO DAILY 11/26/20 05/22/21 History Montelukast [Singulair] 10 mg PO HS@1700 03/28/21 05/22/21 History Sodium Bicarbonate Tab 650 mg PO DAILY@1700 03/28/21 05/22/21 History Apixaban [Eliquis] 2.5 mg PO BID@0900,1700 05/16/21 05/22/21 History Cholecalciferol (Vitamin D3) 125 mcg PO DAILY@1700 05/16/21 05/22/21 History [Vitamin D3 (125 MCG = 5,000 IU)] Insulin Aspart (For Pump) [NovoLOG 0.01 unit SQ-PUMP CONTINUOUS 05/16/21 05/22/21 History (For Pump)] Midodrine [ProAmatine] 5 mg PO BID@0900,1700 PRN 05/16/21 05/22/21 History Omalizumab [Xolair] 300 mg SQ Q28D 05/16/21 05/22/21 History Pantoprazole [Protonix] 40 mg PO DAILY 05/16/21 05/22/21 History Tamsulosin [Flomax] 0.4 mg PO DAILY@1400 05/16/21 05/22/21 History amLODIPine [Norvasc] 5 mg PO BID@0900,1400 05/16/21 05/22/21 History Cefuroxime [Ceftin] 250 mg PO BID 10 Days #20 tab 05/18/21 05/22/21 Rx Acetaminophen-Codeine 300-30mg 1 tab PO Q6HR PRN 05/22/21 05/22/21 History [Tylenol w/codeine #3] HYDROcodone/APAP 5-325MG [[place] 1 tab PO Q4HR PRN 05/22/21 05/22/21 History 5-325] traMADol HCL 50 mg PO DAILY PRN 05/22/21 05/22/21 History Allergies Allergy/AdvReac Type Severity Reaction Status Date / Time levofloxacin [From Levaquin] Allergy Rash/Hives Verified 05/22/21 11:54 Sulfa (Sulfonamide Allergy Rash/Hives Verified 05/22/21 11:54 Antibiotics) Physical Exam Vitals: Vital Signs Temp Pulse Pulse Resp BP BP Pulse Ox 05/23/21 08:00 66 140/107 100 05/23/21 01:45 64 17 127/67 100 05/22/21 20:00 97 F L 52 L 18 134/60 97 05/22/21 17:45 75 18 123/68 94 L 05/22/21 16:00 55 L 18 107/52 100 05/22/21 15:54 49 L 18 105/53 100 05/22/21 14:36 55 L 18 124/69 99 05/22/21 12:04 55 L 18 111/64 100 05/22/21 10:48 96.5 F L 65 18 111/66 100 Results CBC & Chem 7: 05/22/21 11:22 05/23/21 08:45 Labs: Abnormal Lab Results - Last 24 Hours (Table) 05/22/21 05/22/21 05/22/21 Range/Units 10:56 11:22 11:22 RBC 3.42 L (4.30-5.90) m/uL Hgb 11.2 L (13.0-17.5) gm/dL Hct 33.1 L (39.0-53.0) % Lymphocytes # 0.6 L (1.0-4.8) k/uL Sodium 126 L (137-145) mmol/L Potassium 3.1 L (3.5-5.1) mmol/L Chloride 88 L (98-107) mmol/L Carbon Dioxide 31 H (22-30) mmol/L BUN 26 H (9-20) mg/dL Creatinine 6.14 H (0.66-1.25) mg/dL Glucose (74-99) mg/dL POC Glucose (mg/dL) 54 L (75-99) mg/dL Calcium 8.2 L (8.4-10.2) mg/dL Magnesium (1.6-2.3) mg/dL Alkaline Phosphatase 268 H (38-126) U/L Total Protein 5.5 L (6.3-8.2) g/dL Albumin 2.6 L (3.5-5.0) g/dL 05/22/21 05/22/21 05/22/21 Range/Units 11:45 12:22 13:14 RBC (4.30-5.90) m/uL Hgb (13.0-17.5) gm/dL Hct (39.0-53.0) % Lymphocytes # (1.0-4.8) k/uL Sodium (137-145) mmol/L Potassium (3.5-5.1) mmol/L Chloride (98-107) mmol/L Carbon Dioxide (22-30) mmol/L BUN (9-20) mg/dL Creatinine (0.66-1.25) mg/dL Glucose (74-99) mg/dL POC Glucose (mg/dL) 72 L 125 H 111 H (75-99) mg/dL Calcium (8.4-10.2) mg/dL Magnesium (1.6-2.3) mg/dL Alkaline Phosphatase (38-126) U/L Total Protein (6.3-8.2) g/dL Albumin (3.5-5.0) g/dL 05/22/21 05/22/21 05/22/21 Range/Units 14:41 16:38 20:13 RBC (4.30-5.90) m/uL Hgb (13.0-17.5) gm/dL Hct (39.0-53.0) % Lymphocytes # (1.0-4.8) k/uL Sodium (137-145) mmol/L Potassium (3.5-5.1) mmol/L Chloride (98-107) mmol/L Carbon Dioxide (22-30) mmol/L BUN (9-20) mg/dL Creatinine (0.66-1.25) mg/dL Glucose (74-99) mg/dL POC Glucose (mg/dL) 116 H 150 H 197 H (75-99) mg/dL Calcium (8.4-10.2) mg/dL Magnesium (1.6-2.3) mg/dL Alkaline Phosphatase (38-126) U/L Total Protein (6.3-8.2) g/dL Albumin (3.5-5.0) g/dL 05/23/21 05/23/21 Range/Units 07:42 08:45 RBC (4.30-5.90) m/uL Hgb (13.0-17.5) gm/dL Hct (39.0-53.0) % Lymphocytes # (1.0-4.8) k/uL Sodium 125 L (137-145) mmol/L Potassium (3.5-5.1) mmol/L Chloride 86 L (98-107) mmol/L Carbon Dioxide (22-30) mmol/L BUN 26 H (9-20) mg/dL Creatinine 6.06 H (0.66-1.25) mg/dL Glucose 218 H (74-99) mg/dL POC Glucose (mg/dL) 206 H (75-99) mg/dL Calcium 8.0 L (8.4-10.2) mg/dL Magnesium 1.4 L (1.6-2.3) mg/dL Alkaline Phosphatase (38-126) U/L Total Protein (6.3-8.2) g/dL Albumin (3.5-5.0) g/dL Microbiology - Last 24 Hours (Table) 05/22/21 22:35 Body Fluid Culture - Preliminary Peritoneal Fluid
[2021-05-23] MEDS: TAMSULOSIN 0.4 MG CAP.ER.24H PO SCH (14:48)
[2021-05-23] MEDS: SODIUM BICARBONATE TAB 650 MG TAB PO SCH (17:34)
[2021-05-23] MEDS: QUEtiapine 25 MG TAB PO SCH (17:34)
[2021-05-23] MEDS: MONTELUKAST 10 MG TAB PO SCH (17:34)
[2021-05-23 17:38] LABS: Glucose,Whole Blood 73 mg/dL (75-99)
[2021-05-23 19:31] LABS: Glucose,Whole Blood 103 mg/dL (75-99)
[2021-05-23 19:59] LABS: Allen Test Performed? Yes
--- NOTE | 2021-05-23 20:05 | P.EN ---
A- team: Indication: Altered mental status Arrived on Scene to find: Patient somnolent, not answering any questions. Reviewed the chart and discussed the case with the RN. Patient with a history of COPD, ESRD on HD, DM, and it sleep apnea was admitted for altered mental status suspect secondary to hypoglycemia and UTI. Vital signs reviewed: 114/68, P 64, T 97.5, SpO2 99%. Blood glucose 103 Patient seen and examined at bedside. General: [non toxic], [no distress], [appears at stated age] Derm: [warm], [dry] Head: [atraumatic], [normocephalic], [symmetric] Eyes: [no lid lag], [anicteric sclera] Mouth: [no lip lesion], [mucus membranes moist] Cardiovascular: [S1S2 reg], [no murmur], [positive posterior tibial pulse bilateral], Lungs: Poor air entry jamshid, [no rhonchi, no rales] , [no accessory muscle use] Abdominal: [soft], [ nontender to palpation], [no guarding], [no appreciable organomegaly] Ext: [no gross muscle atrophy], [no edema], [no contractures] Neuro: Unable to assess Psych: Somnolent, awakens to rigorous tactile stimuli but quickly goes back to sleep, not answering any questions, only groaning Assessment: Altered mental status, possibly due to Hypercapnia in setting of underlying COPD and ALEXYS vs UTI Plan: ABG ordered Follow up remaining blood work CXR ordered Patient receiving Abxs for UTI Notified: Primary team notified by RN A Total of 35 minutes of critical care time was spent on the complex care of this patient.
[2021-05-23 20:12] LABS: ABG Base Excess 7.1 mmol/L; ABG HCO3 32 mmol/L (21-25); ABG PCO2 52 mmHg (35-45); ABG PO2 122 mmHg (83-108); ABG TCO2 34 mmol/L (19-24)
[2021-05-23 20:36] LABS: Basophils # (A) 0.1 k/uL (0-0.2); Basophils % (A) 1 %; Eosinophils # (A) 0.5 k/uL (0-0.7); Eosinophils % (A) 7 %; HCT 31.2 % (39.0-53.0); HGB 10.5 gm/dL (13.0-17.5); Lymphocytes # (A) 0.8 k/uL (1.0-4.8); Lymphocytes % (A) 12 %; MCH 32.7 pg (25.0-35.0); MCHC 33.7 g/dL (31.0-37.0); Mean Platelet Volume 8.5; Monocytes # (A) 0.6 k/uL (0-1.0); Monocytes % (A) 8 %; Neutrophils # (A) 4.8 k/uL (1.3-7.7); Neutrophils % (A) 70 %; Platelet Count 247 k/uL (150-450); Poikilocytosis Slight; RBC 3.21 m/uL (4.30-5.90); RDW 14.1 % (11.5-15.5); WBC 6.8 k/uL (3.8-10.6)
--- NOTE | 2021-05-23 20:47 | XR ---
EXAMINATION TYPE: XR chest 1V portable DATE OF EXAM: 05/23/2021 COMPARISON: 05/22/2021 HISTORY: Short of breath TECHNIQUE: Single view FINDINGS: There is moderate pulmonary airspace edema. There is mild right pleural effusion. Heart is enlarged. Thoracic aorta is atheromatous. There is right axillary pacemaker. IMPRESSION: There is pulmonary edema not significantly different than yesterday and could relate to c ongestive heart failure or RDS.
[2021-05-23 21:00] LABS: ALT 22 U/L (4-49); AST 35 U/L (17-59); African American GFR (CKD) 9 (>60 ml/min/1.73 sqM); Albumin 2.5 g/dL (3.5-5.0); Albumin/Globulin Ratio 0.8; Alkaline Phosphatase 272 U/L (38-126); Anion Gap 9 mmol/L; Blood Urea Nitrogen 26 mg/dL (9-20); Calcium 8.2 mg/dL (8.4-10.2); Carbon Dioxide 29 mmol/L (22-30); Chloride 86 mmol/L (98-107); Glucose 104 mg/dL (74-99); Non-African American GFR(CKD) 8 (>60 ml/min/1.73 sqM); Potassium 3.2 mmol/L (3.5-5.1); Sodium 124 mmol/L (137-145); Total Bilirubin 0.7 mg/dL (0.2-1.3); Total Protein 5.5 g/dL (6.3-8.2)
[2021-05-23] MEDS ORDERED: SODIUM CHLORIDE 0.9% 1,000 ML IV SCH (22:15)
[2021-05-23] MEDS: ATORVASTATIN 40 MG TAB PO SCH (23:12)
[2021-05-24] MEDS ORDERED: POTASSIUM CHLORIDE ER 20 MEQ TAB.ER PO STA (01:48)
[2021-05-24] MEDS: DIALYSIS (PERIT 1.5%) 2,000 ML 30 G/2,000 ML BAG INTRAPERIT SCH ×2 (03:56→10:03)
[2021-05-24 07:02] LABS: Basophils # (A) 0.1 k/uL (0-0.2); Basophils % (A) 1 %; Eosinophils # (A) 0.4 k/uL (0-0.7); Eosinophils % (A) 8 %; HCT 33.1 % (39.0-53.0); HGB 11.1 gm/dL (13.0-17.5); Lymphocytes # (A) 0.7 k/uL (1.0-4.8); Lymphocytes % (A) 12 %; MCH 32.7 pg (25.0-35.0); MCHC 33.4 g/dL (31.0-37.0); MCV 97.8 fL (80.0-100.0); Mean Platelet Volume 8.9; Monocytes # (A) 0.5 k/uL (0-1.0); Monocytes % (A) 8 %; Neutrophils # (A) 4.1 k/uL (1.3-7.7); Neutrophils % (A) 70 %; Platelet Count 267 k/uL (150-450); Poikilocytosis Slight; RBC 3.39 m/uL (4.30-5.90); RDW 14.2 % (11.5-15.5); WBC 5.8 k/uL (3.8-10.6)
[2021-05-24 07:26] LABS: Glucose,Whole Blood 208 mg/dL (75-99)
[2021-05-24] MEDS: CALCIUM ACETATE 667 MG TAB PO SCH ×3 (09:36→16:45)
[2021-05-24] MEDS: PANTOPRAZOLE 40 MG TABLET PO SCH (09:36)
[2021-05-24] MEDS: amLODIPine 5 MG TAB PO SCH ×2 (09:36→16:01)
[2021-05-24] MEDS: APIXABAN 2.5 MG TABLET PO SCH ×2 (09:37→16:01)
[2021-05-24] MEDS: DULoxetine HCL 60 MG CAPSULE.DR PO SCH (09:37)
--- NOTE | 2021-05-24 09:58 | P.PN ---
Subjective Patient is seen in follow-up for end-stage renal disease. He is maintained on peritoneal dialysis. Patient became more confused last night and is requiring more oxygen. Currently sleeping. Blood pressure stable. Chest x-ray suggestive of fluid overload. Vital signs are stable. O2 mask noted. HEART: Rate and Rhythm are regular. Lungs: Breath sounds decreased. ABDOMEN: Soft, no distention. EXTREMITITES: No edema. Objective - Vital Signs Vital signs: Vital Signs Temp 97.6 F 05/24/21 05:08 Pulse 53 L 05/24/21 05:08 Resp 15 05/24/21 03:58 BP 138/85 05/24/21 05:08 Pulse Ox 95 05/24/21 03:58 Intake & Output 05/23/21 05/24/21 05/24/21 18:59 06:59 18:59 Intake Total 740 600 Balance 740 600 Weight 113.398 kg Intake: Intake, IV Titration 300 Amount Sodium Chloride 0.9% 1, 300 000 ml @ 50 mls/hr IV . Q20H [facility] Rx#:[id number] Oral 740 300 Other: # Voids 0 # Bowel Movements 0 - Labs CBC & Chem 7: 05/24/21 04:30 05/23/21 20:18 Labs: Abnormal Lab Results - Last 24 Hours (Table) 05/23/21 05/23/21 05/23/21 Range/Units 08:45 08:45 08:45 RBC (4.30-5.90) m/uL Hgb (13.0-17.5) gm/dL Hct (39.0-53.0) % Lymphocytes # (1.0-4.8) k/uL ESR 28 H (0-15) mm/hr ABG pCO2 (35-45) mmHg ABG pO2 (83-108) mmHg ABG HCO3 (21-25) mmol/L ABG Total CO2 (19-24) mmol/L ABG O2 Saturation (94-97) % Sodium (137-145) mmol/L Potassium (3.5-5.1) mmol/L Chloride (98-107) mmol/L BUN (9-20) mg/dL Creatinine (0.66-1.25) mg/dL Glucose (74-99) mg/dL POC Glucose (mg/dL) (75-99) mg/dL Calcium (8.4-10.2) mg/dL Alkaline Phosphatase (38-126) U/L C-Reactive Protein 3.8 H (<1.0) mg/dL Total Protein (6.3-8.2) g/dL Albumin (3.5-5.0) g/dL Procalcitonin 0.34 H (0.02-0.09) ng/mL Urine Protein (Negative) Urine Glucose (UA) (Negative) Urine Blood (Negative) Ur Leukocyte Esterase (Negative) Urine RBC (0-5) /hpf Urine WBC (0-5) /hpf 05/23/21 05/23/21 05/23/21 Range/Units 12:20 13:25 17:37 RBC (4.30-5.90) m/uL Hgb (13.0-17.5) gm/dL Hct (39.0-53.0) % Lymphocytes # (1.0-4.8) k/uL ESR (0-15) mm/hr ABG pCO2 (35-45) mmHg ABG pO2 (83-108) mmHg ABG HCO3 (21-25) mmol/L ABG Total CO2 (19-24) mmol/L ABG O2 Saturation (94-97) % Sodium (137-145) mmol/L Potassium (3.5-5.1) mmol/L Chloride (98-107) mmol/L BUN (9-20) mg/dL Creatinine (0.66-1.25) mg/dL Glucose (74-99) mg/dL POC Glucose (mg/dL) 170 H 73 L (75-99) mg/dL Calcium (8.4-10.2) mg/dL Alkaline Phosphatase (38-126) U/L C-Reactive Protein (<1.0) mg/dL Total Protein (6.3-8.2) g/dL Albumin (3.5-5.0) g/dL Procalcitonin (0.02-0.09) ng/mL Urine Protein 2+ H (Negative) Urine Glucose (UA) Trace H (Negative) Urine Blood Large H (Negative) Ur Leukocyte Esterase Large H (Negative) Urine RBC >182 H (0-5) /hpf Urine WBC >182 H (0-5) /hpf 12/21/21 12/21/21 12/21/21 Range/Units 19:30 19:53 20:18 RBC (4.30-5.90) m/uL Hgb (13.0-17.5) gm/dL Hct (39.0-53.0) % Lymphocytes # (1.0-4.8) k/uL ESR (0-15) mm/hr ABG pCO2 52 H (35-45) mmHg ABG pO2 122 H (83-108) mmHg ABG HCO3 32 H (21-25) mmol/L ABG Total CO2 34 H (19-24) mmol/L ABG O2 Saturation 99.0 H (94-97) % Sodium 124 L (137-145) mmol/L Potassium 3.2 L (3.5-5.1) mmol/L Chloride 86 L (98-107) mmol/L BUN 26 H (9-20) mg/dL Creatinine 6.16 H (0.66-1.25) mg/dL Glucose 104 H (74-99) mg/dL POC Glucose (mg/dL) 103 H (75-99) mg/dL Calcium 8.2 L (8.4-10.2) mg/dL Alkaline Phosphatase 272 H (38-126) U/L C-Reactive Protein (<1.0) mg/dL Total Protein 5.5 L (6.3-8.2) g/dL Albumin 2.5 L (3.5-5.0) g/dL Procalcitonin (0.02-0.09) ng/mL Urine Protein (Negative) Urine Glucose (UA) (Negative) Urine Blood (Negative) Ur Leukocyte Esterase (Negative) Urine RBC (0-5) /hpf Urine WBC (0-5) /hpf 05/23/21 05/24/21 05/24/21 Range/Units 20:18 04:30 07:22 RBC 3.21 L 3.39 L (4.30-5.90) m/uL Hgb 10.5 L 11.1 L (13.0-17.5) gm/dL Hct 31.2 L 33.1 L (39.0-53.0) % Lymphocytes # 0.8 L 0.7 L (1.0-4.8) k/uL ESR (0-15) mm/hr ABG pCO2 (35-45) mmHg ABG pO2 (83-108) mmHg ABG HCO3 (21-25) mmol/L ABG Total CO2 (19-24) mmol/L ABG O2 Saturation (94-97) % Sodium (137-145) mmol/L Potassium (3.5-5.1) mmol/L Chloride (98-107) mmol/L BUN (9-20) mg/dL Creatinine (0.66-1.25) mg/dL Glucose (74-99) mg/dL POC Glucose (mg/dL) 208 H (75-99) mg/dL Calcium (8.4-10.2) mg/dL Alkaline Phosphatase (38-126) U/L C-Reactive Protein (<1.0) mg/dL Total Protein (6.3-8.2) g/dL Albumin (3.5-5.0) g/dL Procalcitonin (0.02-0.09) ng/mL Urine Protein (Negative) Urine Glucose (UA) (Negative) Urine Blood (Negative) Ur Leukocyte Esterase (Negative) Urine RBC (0-5) /hpf Urine WBC (0-5) /hpf Microbiology - Last 24 Hours (Table) 05/22/21 22:35 Gram Stain - Preliminary Peritoneal Fluid Body Fluid Culture - Preliminary 05/23/21 12:20 Urine Culture - Preliminary Urine,Catheterized Assessment and Plan Plan: Assessment: 1. End-stage renal disease maintained on peritoneal dialysis. Patient's white cell count was 4 with clear dialysate. Fluid culture is pending. 2. Diabetes with hypoglycemia. Improved. 3. Possible UTI. On antibiotics. 4. Chronic kidney disease mineral bone disease maintained on PhosLo and Sensipar. 5. Hypertension with chronic kidney disease. Stable. 6. Hyponatremia secondary to chronic kidney disease. Hypervolemic. 7. Hypomagnesemia from poor intake. Replace. 8. Altered mental status. Likely related to infection. Plan: Maintain 2 L exchanges every 6 hours - change to 2.5% solution. 1200 mL fluid restriction. Encourage oral intake. Follow-up cultures. Morning labs pending. Wean FiO2. Hep-Lock IV fluids.
[2021-05-24] MEDS: CINACALCET 30 MG TAB PO SCH (10:48)
[2021-05-24] MEDS: MIDODRINE 5 MG TAB PO SCH ×3 (10:49→16:46)
[2021-05-24] MEDS: INSULIN ASPART (NovoLOG) 100 UNIT/ML VIAL SQ SCH ×4 (10:50→22:19)
[2021-05-24] MEDS: DIALYSIS (PERIT 2.5%) 2,000 ML 50 G/2,000 ML BAG INTRAPERIT SCH ×2 (11:21→18:06)
[2021-05-24 11:51] LABS: African American GFR (CKD) 9.7 (60.0-200.0); Anion Gap 16.1 mmol/L (10.00-18.00); BUN/Creat Ratio 3.83 Ratio (12.00-20.00); Calcium 8.4 mg/dL (8.7-10.3); Carbon Dioxide 23.9 mmol/L (20.0-27.5); Magnesium 1.9 mg/dL (1.5-2.4); Non-African American GFR(CKD) 8.4 (60.0-200.0); Potassium 3.4 mmol/L (3.5-5.5)
[2021-05-24 12:07] LABS: Glucose,Whole Blood 171 mg/dL (75-99)
--- NOTE | 2021-05-24 12:18 | P.PN ---
Subjective Progress Note Date: 05/24/21 HISTORY OF PRESENT ILLNESS This is a 76-year-old patient of Dr. Wang with a past medical history significant for COPD, diabetes mellitus2, end stage renal disease on CAPD, hy pertension, chronic atrial fibrillation, sick sinus syndrome status post single- chamber permanent pacemaker, BPH, hyperlipidemia, gastroesophageal reflux disease, recurrent depression, vitamin D deficiency, obstructive sleep apnea. Patient has had several hospitalizations that she air and recently was at [facility] for subacute rehab. Patient now presents with confusion. His states that he has been confused for the past 3-4 days and worsened on Saturday. She states she got a blood sugar in the morning of 127 but EMS obtained a blood sugar of 35. She states he's not been eating well and has not been out of bed since he left [facility] back April 29. She states that she has to have EMS contacted and come to the home and help lift him many times. She denies any fever or chills. Patient has been seen by orthopedic spine and was placed in a back brace which apparently he has not been using. Patient's also states that his blood pressure has had severe fluctuations, normal while he is laying in bed and when he stands it drops. He has been maintained on insulin pump. Patient presented to [facility] emergency center and found to be afebrile, heart rate 65, blood pressure 111/66, pulse ox 100%. EKG is ventricularly paced rhythm. WBC 8.3, hemoglobin 11.2, platelet count 283. Sodium 126, potassium 3.1, chloride 88, CO2 31, BUN 26 and creatinine 6.14. I nitial blood sugar was 54 with repeat of 90. Total bilirubin 0.8, AST 48, ALT 27, alkaline phosphatase 268. COVID19 negative. Urinalysis obtained by straight cath was dark brown, turbid, blood large, leukoesterase large, RBCs greater than 182, wbc's greater than 182. Peritoneal fluid was sent for culture. Chest x-ray: Correlate for heart failure otherwise consider diffuse interstitial pneumonia. Patient is seen today in the emergency center waiting for a bed on the [facility] floor, consult in place for nephrology. 05/24: Patient is seen for follow-up, wearing a BiPAP machine, she had an event last night, where he was more obtunded, and patient's heart rate went down to the 45, patient was asleep at the time, and 18 was called in, and a BiPAP was requested to be put in, pCO2 is elevated, on blood gases. Patient has no CPAP device a BiPAP device at home, also landing for ECF placement, they have required that the patient be transitioned to hemodialysis, instead of peritoneal dialysis. Blood cultures are currently pending, urine cultures are pending, Dr. Yane arevalo is consulted, for hypercarbia with suspected sleep apnea untreated his blood sugars in the 150s to 170s, off insulin pump, on basal bolus insulin REVIEW OF SYSTEMS Constitutional: No fever, no chills, no night sweats. No weight change. Reports weakness, reports fatigue reports lethargy. Reports daytime sleepiness. EENT: No headache. No blurred vision or double vision, no loss of vision. No loss of Hearing, no ringing in the ears, no dizziness. No nasal drainage or congestion. No epistaxis. No sore throat. Lungs: No shortness of breath, cough, no sputum production. No wheezing. Cardiovascular: No chest pain, no lower extremity edema. No palpitations. No paroxysmal nocturnal dyspnea. No orthopnea. No lightheadedness or dizziness. No syncopal episodes. Abdominal: No abdominal pain. No nausea, vomiting. No diarrhea. No constipation. No bloody or tarry stools.. No loss of appetite. CAPD. Genitourinary: No dysuria, no frequency, urgency. No urinary retention. Patient makes very little urine Musculoskeletal: No myalgias. Reports muscle weakness, reports gait dysfunction, reports frequent falls. Reports back pain. No neck pain. Integumentary: Reports abrasions and ecchymosis, no lesions. No rash or pruritus. No unusual bruising. No change in hair or nails. Neurologic: No aphasia. No facial droop. Reported change in mentation. No head injury. No headache. No paralysis. No paresthesia. Psychiatric: No depression. No anxiety. No mood swings. Endocrine: Noted abnormal blood sugars. No weight change. No excessive sweating or thirst. No cold intolerance. PHYSICAL EXAMINATION Gen: This is a 76-year-old obese male. He is resting on stretcher and appears to be comfortable and in no acute distress. Patient's is at bedside. HEENT: Head is atraumatic, normocephalic. Pupils equal, round. Sclerae is anicteric. NECK: Supple. No JVD. No lymphadenopathy. No thyromegaly. LUNGS: Clear to auscultation. No wheezes or rhonchi. No intercostal retractions. HEART: Regular rate and rhythm. Systolic murmur. ABDOMEN: Soft. Bowel sounds are present. No masses. No tenderness. EXTREMITIES: No pedal edema. No calf tenderness. Multiple areas of ecchymosis on extremities. NEUROLOGICAL: Patient is awake, alert and oriented x3. Cranial nerves 2 through 12 are grossly intact. ASSESSMENT AND PLAN 1. Metabolic encephalopathy secondary to hypoglycemia, rule out infection. P atient placed on insulin scale only for now. He is status post dextrose 50% 2. Peritoneal fluid sent for culture, urine culture in progress. Obtain CRP, sed rate, calcitonin 2. Severe generalized weakness, fatigue possibly related to multiple comorbidities. PT and OT consults. 3. End-stage renal disease on CAPD. Consult with nephrology. Continue sodium bicarb 650 mg daily 4. L1 transverse vertebral fracture. Patient to be maintained on back brace while out of bed. 5. Chronic atrial fibrillation. Continue eliquis, Lopressor 25 mg as directedPulse rate has been well controlled. 6. Diabetes mellitus type II, insulin requiring uncontrolled with hypoglycemia. S1 scale only for now. 7. COPD. Continue Singulair 10 mg by mouth at bedtime 8. Hypertension, stable. Continue Lopressor as needed. 9. Autonomic hypotension secondary to diabetes. Patient started on midodrine 5 mg 3 times daily. 10. BPH. Continue Flomax 0.4 mg 11. Obstructive sleep apnea. Continue CPAP. 12. Hyperlipidemia. Atorvastatin 40 mg 13. Chronic kidney disease mineral bone disorder. Continue PhosLo 1334 mg 3 times daily. 14. Sick sinus syndrome status post single-chamber permanent pacemaker. 15. Recurrent depression. Continue Cymbalta 60 mg daily, Seroquel 25 mg at bedtime, trazodone 50 mg at bedtime. 16. Dementia. Continue Aricept 5 mg at bedtime. 17. Gastroesophageal reflux disease and GI prophylaxis. Protonix. 18. DVT prophylaxis. Eliquis. 19. Hypercarbic respiratory failure, currently on BiPAP, patient to be placed on outpatient BiPAP or Trilogy Status: Pending, CODE STATUS to be discussed with the daughter patient is not capable of making decision at this time Patient will be admitted to the hospital for a minimum of 2 night stay. DISCHARGE PLAN TBD. Consult with PT and OT. Objective - Vital Signs Vital signs: Vital Signs Temp 97.6 F 05/24/21 11:23 Pulse 72 05/24/21 11:23 Resp 16 05/24/21 11:23 BP 160/64 05/24/21 11:23 Pulse Ox 94 L 05/24/21 11:23 Intake & Output 05/23/21 05/24/21 05/24/21 18:59 06:59 18:59 Intake Total 740 600 Balance 740 600 Weight 113.398 kg Intake: Intake, IV Titration 300 Amount Sodium Chloride 0.9% 1, 300 000 ml @ 50 mls/hr IV . Q20H [facility] Rx#:[id number] Oral 740 300 Other: # Voids 0 # Bowel Movements 0 - Labs CBC & Chem 7: 05/24/21 04:30 05/24/21 04:30 Labs: Abnormal Lab Results - Last 24 Hours (Table) 05/23/21 05/23/21 05/23/21 Range/Units 08:45 08:45 12:20 RBC (4.30-5.90) m/uL Hgb (13.0-17.5) gm/dL Hct (39.0-53.0) % Lymphocytes # (1.0-4.8) k/uL ESR 28 H (0-15) mm/hr ABG pCO2 (35-45) mmHg ABG pO2 (83-108) mmHg ABG HCO3 (21-25) mmol/L ABG Total CO2 (19-24) mmol/L ABG O2 Saturation (94-97) % Sodium (137-145) mmol/L Potassium (3.5-5.1) mmol/L Chloride (98-107) mmol/L BUN (9-20) mg/dL Creatinine (0.66-1.25) mg/dL Est GFR (CKD-EPI)AfAm (60.0-200.0) Est GFR (CKD-EPI)NonAf (60.0-200.0) BUN/Creatinine Ratio (12.00-20.00) Ratio Glucose (74-99) mg/dL POC Glucose (mg/dL) (75-99) mg/dL Calcium (8.4-10.2) mg/dL Alkaline Phosphatase (38-126) U/L Total Protein (6.3-8.2) g/dL Albumin (3.5-5.0) g/dL Procalcitonin 0.34 H (0.02-0.09) ng/mL Urine Protein 2+ H (Negative) Urine Glucose (UA) Trace H (Negative) Urine Blood Large H (Negative) Ur Leukocyte Esterase Large H (Negative) Urine RBC >182 H (0-5) /hpf Urine WBC >182 H (0-5) /hpf 05/23/21 05/23/21 05/23/21 Range/Units 13:25 17:37 19:30 RBC (4.30-5.90) m/uL Hgb (13.0-17.5) gm/dL Hct (39.0-53.0) % Lymphocytes # (1.0-4.8) k/uL ESR (0-15) mm/hr ABG pCO2 (35-45) mmHg ABG pO2 (83-108) mmHg ABG HCO3 (21-25) mmol/L ABG Total CO2 (19-24) mmol/L ABG O2 Saturation (94-97) % Sodium (137-145) mmol/L Potassium (3.5-5.1) mmol/L Chloride (98-107) mmol/L BUN (9-20) mg/dL Creatinine (0.66-1.25) mg/dL Est GFR (CKD-EPI)AfAm (60.0-200.0) Est GFR (CKD-EPI)NonAf (60.0-200.0) BUN/Creatinine Ratio (12.00-20.00) Ratio Glucose (74-99) mg/dL POC Glucose (mg/dL) 170 H 73 L 103 H (75-99) mg/dL Calcium (8.4-10.2) mg/dL Alkaline Phosphatase (38-126) U/L Total Protein (6.3-8.2) g/dL Albumin (3.5-5.0) g/dL Procalcitonin (0.02-0.09) ng/mL Urine Protein (Negative) Urine Glucose (UA) (Negative) Urine Blood (Negative) Ur Leukocyte Esterase (Negative) Urine RBC (0-5) /hpf Urine WBC (0-5) /hpf 05/23/21 05/23/21 05/23/21 Range/Units 19:53 20:18 20:18 RBC 3.21 L (4.30-5.90) m/uL Hgb 10.5 L (13.0-17.5) gm/dL Hct 31.2 L (39.0-53.0) % Lymphocytes # 0.8 L (1.0-4.8) k/uL ESR (0-15) mm/hr ABG pCO2 52 H (35-45) mmHg ABG pO2 122 H (83-108) mmHg ABG HCO3 32 H (21-25) mmol/L ABG Total CO2 34 H (19-24) mmol/L ABG O2 Saturation 99.0 H (94-97) % Sodium 124 L (137-145) mmol/L Potassium 3.2 L (3.5-5.1) mmol/L Chloride 86 L (98-107) mmol/L BUN 26 H (9-20) mg/dL Creatinine 6.16 H (0.66-1.25) mg/dL Est GFR (CKD-EPI)AfAm (60.0-200.0) Est GFR (CKD-EPI)NonAf (60.0-200.0) BUN/Creatinine Ratio (12.00-20.00) Ratio Glucose 104 H (74-99) mg/dL POC Glucose (mg/dL) (75-99) mg/dL Calcium 8.2 L (8.4-10.2) mg/dL Alkaline Phosphatase 272 H (38-126) U/L Total Protein 5.5 L (6.3-8.2) g/dL Albumin 2.5 L (3.5-5.0) g/dL Procalcitonin (0.02-0.09) ng/mL Urine Protein (Negative) Urine Glucose (UA) (Negative) Urine Blood (Negative) Ur Leukocyte Esterase (Negative) Urine RBC (0-5) /hpf Urine WBC (0-5) /hpf 05/24/21 05/24/21 05/24/21 Range/Units 04:30 04:30 07:22 RBC 3.39 L (4.30-5.90) m/uL Hgb 11.1 L (13.0-17.5) gm/dL Hct 33.1 L (39.0-53.0) % Lymphocytes # 0.7 L (1.0-4.8) k/uL ESR (0-15) mm/hr ABG pCO2 (35-45) mmHg ABG pO2 (83-108) mmHg ABG HCO3 (21-25) mmol/L ABG Total CO2 (19-24) mmol/L ABG O2 Saturation (94-97) % Sodium 127 L (137-145) mmol/L Potassium 3.4 L (3.5-5.1) mmol/L Chloride 87 L (98-107) mmol/L BUN (9-20) mg/dL Creatinine 6.0 H (0.66-1.25) mg/dL Est GFR (CKD-EPI)AfAm 9.7 L (60.0-200.0) Est GFR (CKD-EPI)NonAf 8.4 L (60.0-200.0) BUN/Creatinine Ratio 3.83 L (12.00-20.00) Ratio Glucose 168 H (74-99) mg/dL POC Glucose (mg/dL) 208 H (75-99) mg/dL Calcium 8.4 L (8.4-10.2) mg/dL Alkaline Phosphatase (38-126) U/L Total Protein (6.3-8.2) g/dL Albumin (3.5-5.0) g/dL Procalcitonin (0.02-0.09) ng/mL Urine Protein (Negative) Urine Glucose (UA) (Negative) Urine Blood (Negative) Ur Leukocyte Esterase (Negative) Urine RBC (0-5) /hpf Urine WBC (0-5) /hpf 05/24/ Range/Units 11:59 RBC (4.30-5.90) m/uL Hgb (13.0-17.5) gm/dL Hct (39.0-53.0) % Lymphocytes # (1.0-4.8) k/uL ESR (0-15) mm/hr ABG pCO2 (35-45) mmHg ABG pO2 (83-108) mmHg ABG HCO3 (21-25) mmol/L ABG Total CO2 (19-24) mmol/L ABG O2 Saturation (94-97) % Sodium (137-145) mmol/L Potassium (3.5-5.1) mmol/L Chloride (98-107) mmol/L BUN (9-20) mg/dL Creatinine (0.66-1.25) mg/dL Est GFR (CKD-EPI)AfAm (60.0-200.0) Est GFR (CKD-EPI)NonAf (60.0-200.0) BUN/Creatinine Ratio (12.00-20.00) Ratio Glucose (74-99) mg/dL POC Glucose (mg/dL) 171 H (75-99) mg/dL Calcium (8.4-10.2) mg/dL Alkaline Phosphatase (38-126) U/L Total Protein (6.3-8.2) g/dL Albumin (3.5-5.0) g/dL Procalcitonin (0.02-0.09) ng/mL Urine Protein (Negative) Urine Glucose (UA) (Negative) Urine Blood (Negative) Ur Leukocyte Esterase (Negative) Urine RBC (0-5) /hpf Urine WBC (0-5) /hpf Microbiology - Last 24 Hours (Table) 05/22/21 22:35 Gram Stain - Preliminary Peritoneal Fluid Body Fluid Culture - Preliminary 05/23/21 12:20 Urine Culture - Preliminary Urine,Catheterized
[2021-05-24 13:57] VITALS: BMI 33.9
[2021-05-24] MEDS: TAMSULOSIN 0.4 MG CAP.ER.24H PO SCH (16:00)
[2021-05-24] MEDS: QUEtiapine 25 MG TAB PO SCH (16:00)
[2021-05-24] MEDS: SODIUM BICARBONATE TAB 650 MG TAB PO SCH (16:00)
[2021-05-24] MEDS: MONTELUKAST 10 MG TAB PO SCH (16:00)
[2021-05-24 17:24] LABS: Glucose,Whole Blood 200 mg/dL (75-99)
[2021-05-24 20:25] LABS: Glucose,Whole Blood 166 mg/dL (75-99)
[2021-05-24] MEDS: INSULIN DETEMIR (LEVEMIR) 100 UNIT/ML SYR SQ SCH (22:19)
[2021-05-24] MEDS: ATORVASTATIN 40 MG TAB PO SCH (22:20)
[2021-05-25] MEDS: DIALYSIS (PERIT 2.5%) 2,000 ML 50 G/2,000 ML BAG INTRAPERIT SCH ×4 (01:13→21:31)
[2021-05-25 06:49] LABS: Hepatitis B Surface AB- Quant 19.2 mIU/mL; Hepatitis B Surface Antibody Reactive (Nonreactive); Hepatitis B Surface Antigen Nonreactive (Nonreactive)
[2021-05-25 07:26] LABS: Glucose,Whole Blood 130 mg/dL (75-99)
[2021-05-25] MEDS: INSULIN ASPART (NovoLOG) 100 UNIT/ML VIAL SQ SCH ×4 (08:22→20:37)
[2021-05-25] MEDS: PANTOPRAZOLE 40 MG TABLET PO SCH (08:39)
[2021-05-25] MEDS: APIXABAN 2.5 MG TABLET PO SCH ×2 (08:39→16:49)
[2021-05-25] MEDS: CALCIUM ACETATE 667 MG TAB PO SCH ×3 (08:39→16:49)
[2021-05-25] MEDS: DULoxetine HCL 60 MG CAPSULE.DR PO SCH (08:39)
[2021-05-25] MEDS: amLODIPine 5 MG TAB PO SCH ×2 (08:39→12:56)
[2021-05-25] MEDS: MIDODRINE 5 MG TAB PO SCH ×3 (08:41→16:49)
--- NOTE | 2021-05-25 09:32 | P.CNPUL ---
History of Present Illness Consult date: 05/24/21 Reason for consult: dyspnea, cough, hypoxemia Chief complaint: Progressive increased confusion for last 4-5 days History of present illness: Patient is a 76-year-old male who was admitted into the hospital with progressi ve increased confusion which started about 3-4 days ago and was getting worse on the day of admission he was noted to have a sugar of 35 by EMS, patient has not been eating well with poor appetite, most of the data has been obtained from the chart as patient is nondisplaced in as stated he didn't give a detailed history, spine surgery has been following and has a back brace, his blood pressure also having fluctuation prior to coming into the hospital. Off note that on arrival he was afebrile with saturation 100% stable hemodynamics, labs are significant for hyponatremia with sodium 126, hypokalemia potassium 3.1, with BUN/creatinine of , sugar were 54 improved to 90 subsequently, LFTs were within normal limit Mellen mildly elevated, COVID-19 was negative, urine was dark brown turbid in appearance infected, labs reviewed improvement of hyponatremia slightly, however BUN/creatinine remains elevated 23/6 and arterial blood gas on admission revealed pH of 7.4 pCO2 52 pO2 122 on 2 L oxygen, patient being treated for and continued on direct anticoagulant antihypertensive and broad-spectrum antibiotics IV Rocephin with supportive care from BiPAP, patient has been continued on his peritoneal dialysis with peripheral following, patient initial admitting chest x-ray consistent with CHF finding with no significant change interstitial edema small pleural effusion on the right side subsequent x-ray performed , last night patient had a rapid response found to be somnolent not following simple commands, thought to have altered mental status related to hypercapnia due to baseline COPD and sleep disorder breathing patient has been placed on CPAP during support and as needed during the day, on evaluation today patient more arousable following simple commands has been on BiPAP overnight Review of Systems All systems: negative Past Medical History Past Medical History: COPD, Diabetes Mellitus, Dialysis, Hypertension, Prostate Disorder, Renal Disease, Sleep Apnea/CPAP/BIPAP, Syncope Additional Past Medical History / Comment(s): BPH, uses CPAP, Peritoneal dialysis History of Any Multi-Drug Resistant Organisms: None Reported Past Surgical History: Cholecystectomy, Heart Catheterization, Hernia Repair, Orthopedic Surgery, Pacemaker Additional Past Surgical History / Comment(s): L AV fistula placed on 05/29/2016 [facility], right shoulder proximal humerus repair Past Anesthesia/Blood Transfusion Reactions: No Reported Reaction Type of Cardiac Device: Permanent Pacemaker Device Placement Date:: 05/10/2018 Past Psychological History: Depression Smoking Status: Former smoker Past Alcohol Use History: None Reported Past Drug Use History: None Reported - Past Family History Father History Unknown: Yes Family Medical History: Diabetes Mellitus, Myocardial Infarction ([place]) Additional Family Medical History / Comment(s): at 76 Mother History Unknown: Yes Family Medical History: Congestive Heart Failure (CHF), Diabetes Mellitus Additional Family Medical History / Comment(s): lived to be 97 Brother(s) History Unknown: Yes Family Medical History: COPD, Liver Disease Daughter(s) History Unknown: Yes Medications and Allergies Home Medications Medication Instructions Recorded Confirmed Type Maureen-Chris 1 tab PO DAILY@1700 06/17/18 05/22/21 History Atorvastatin Calcium [Lipitor] 40 mg PO HS 02/16/20 05/22/21 History QUEtiapine FUMARATE [SEROquel] 25 mg PO DAILY@1700 02/16/20 05/22/21 History Nicotine Polacrilex [Nicorette] 4 mg BUCCAL Q2H PRN 02/19/20 05/22/21 History Calcium Acetate [PhosLo] 1,334 mg PO AC-TID 11/26/20 05/22/21 History Cinacalcet HCl [Sensipar] 90 mg PO MOWEFR 11/26/20 05/22/21 History DULoxetine HCL [Cymbalta] 60 mg PO DAILY 11/26/20 05/22/21 History Montelukast [Singulair] 10 mg PO HS@1700 03/28/21 05/22/21 History Sodium Bicarbonate Tab 650 mg PO DAILY@1700 03/28/21 05/22/21 History Apixaban [Eliquis] 2.5 mg PO BID@0900,1700 05/16/21 05/22/21 History Cholecalciferol (Vitamin D3) 125 mcg PO DAILY@1700 05/16/21 05/22/21 History [Vitamin D3 (125 MCG = 5,000 IU)] Insulin Aspart (For Pump) [NovoLOG 0.01 unit SQ-PUMP CONTINUOUS 05/16/21 05/22/21 History (For Pump)] Midodrine [ProAmatine] 5 mg PO BID@0900,1700 PRN 05/16/21 05/22/21 History Omalizumab [Xolair] 300 mg SQ Q28D 05/16/21 05/22/21 History Pantoprazole [Protonix] 40 mg PO DAILY 05/16/21 05/22/21 History Tamsulosin [Flomax] 0.4 mg PO DAILY@1400 05/16/21 05/22/21 History amLODIPine [Norvasc] 5 mg PO BID@0900,1400 05/16/21 05/22/21 History Cefuroxime [Ceftin] 250 mg PO BID 10 Days #20 tab 05/18/21 05/22/21 Rx Acetaminophen-Codeine 300-30mg 1 tab PO Q6HR PRN 05/22/21 05/22/21 History [Tylenol w/codeine #3] HYDROcodone/APAP 5-325MG [[place] 1 tab PO Q4HR PRN 05/22/21 05/22/21 History 5-325] traMADol HCL 50 mg PO DAILY PRN 05/22/21 05/22/21 History Allergies Allergy/AdvReac Type Severity Reaction Status Date / Time levofloxacin [From [facility]] Allergy Rash/Hives Verified 05/22/21 11:54 Sulfa (Sulfonamide Allergy Rash/Hives Verified 05/22/21 11:54 Antibiotics) Physical Exam Vitals: Vital Signs Temp Pulse Pulse Resp BP BP Pulse Ox 05/24/21 16:45 134/67 05/24/21 12:34 97.2 F L 64 18 122/67 96 05/24/21 11:23 97.6 F 72 16 160/64 94 L 05/24/21 08:40 62 18 05/24/21 06:50 97.8 F 62 18 129/64 95 05/24/21 05:08 97.6 F 53 L 138/85 05/24/21 03:58 96.4 F L 60 15 138/72 95 05/23/21 22:53 96.2 F L 63 17 138/69 94 L 05/23/21 19:25 97.5 F L 55 L 16 115/60 92 L 05/23/21 17:30 97.7 F 52 L 18 129/69 100 Intake and Output 05/24/21 05/24/21 05/24/21 06:59 14:59 22:59 Intake Total 600 160 Output Total 0 Balance 600 160 Intake: Intake, IV Titration 300 Amount Sodium Chloride 0.9% 1, 300 000 ml @ 50 mls/hr IV . Q20H CARRILLO Rx#:[id number] Oral 300 160 Output: Urine 0 Other: Weight 113.398 kg Gen: This is a 76-year-old obese male. He is resting on stretcher and appears to be comfortable and in no acute distress. Patient's is at bedside. HEENT: Head is atraumatic, normocephalic. Pupils equal, round. Sclerae is anicteric. NECK: Supple. No JVD. No lymphadenopathy. No thyromegaly. LUNGS: Clear to auscultation. No wheezes or rhonchi. No intercostal retractions. HEART: Regular rate and rhythm. Systolic murmur. ABDOMEN: Soft. Bowel sounds are present. No masses. No tenderness. EXTREMITIES: No pedal edema. No calf tenderness. Multiple areas of ecchymosis on extremities. NEUROLOGICAL: Patient is awake, alert and oriented x3. Cranial nerves 2 through 12 are grossly intact. Results - Laboratory Findings CBC and BMP: 05/24/21 04:30 05/24/21 04:30 ABG ABG pH 7.40 (7.35-7.45) 05/23/21 19:53 ABG pCO2 52 mmHg (35-45) H 05/23/21 19:53 ABG pO2 122 mmHg (83-108) H 05/23/21 19:53 ABG O2 Saturation 99.0 % (94-97) H 05/23/21 19:53 PT/INR, D-dimer PT 11.8 sec (9.0-12.0) 05/22/21 11:22 INR 1.1 (<1.2) 05/22/21 11:22 Abnormal lab findings: Abnormal Labs 05/22/21 05/22/21 05/22/21 10:56 11:22 11:22 RBC 3.42 L Hgb 11.2 L Hct 33.1 L Lymphocytes # 0.6 L ESR ABG pCO2 ABG pO2 ABG HCO3 ABG Total CO2 ABG O2 Saturation Sodium 126 L Potassium 3.1 L Chloride 88 L Carbon Dioxide 31 H BUN 26 H Creatinine 6.14 H Est GFR (CKD-EPI)AfAm Est GFR (CKD-EPI)NonAf BUN/Creatinine Ratio Glucose POC Glucose (mg/dL) 54 L Calcium 8.2 L Magnesium Alkaline Phosphatase 268 H C-Reactive Protein Total Protein 5.5 L Albumin 2.6 L Procalcitonin Urine Protein Urine Glucose (UA) Urine Blood Ur Leukocyte Esterase Urine RBC Urine WBC 05/22/21 05/22/21 05/22/21 11:45 12:22 13:14 RBC Hgb Hct Lymphocytes # ESR ABG pCO2 ABG pO2 ABG HCO3 ABG Total CO2 ABG O2 Saturation Sodium Potassium Chloride Carbon Dioxide BUN Creatinine Est GFR (CKD-EPI)AfAm Est GFR (CKD-EPI)NonAf BUN/Creatinine Ratio Glucose POC Glucose (mg/dL) 72 L 125 H 111 H Calcium Magnesium Alkaline Phosphatase C-Reactive Protein Total Protein Albumin Procalcitonin Urine Protein Urine Glucose (UA) Urine Blood Ur Leukocyte Esterase Urine RBC Urine WBC 05/22/21 05/22/21 05/22/21 14:41 16:38 20:13 RBC Hgb Hct Lymphocytes # ESR ABG pCO2 ABG pO2 ABG HCO3 ABG Total CO2 ABG O2 Saturation Sodium Potassium Chloride Carbon Dioxide BUN Creatinine Est GFR (CKD-EPI)AfAm Est GFR (CKD-EPI)NonAf BUN/Creatinine Ratio Glucose POC Glucose (mg/dL) 116 H 150 H 197 H Calcium Magnesium Alkaline Phosphatase C-Reactive Protein Total Protein Albumin Procalcitonin Urine Protein Urine Glucose (UA) Urine Blood Ur Leukocyte Esterase Urine RBC Urine WBC 05/23/21 05/23/21 05/23/21 07:42 08:45 08:45 RBC Hgb Hct Lymphocytes # ESR 28 H ABG pCO2 ABG pO2 ABG HCO3 ABG Total CO2 ABG O2 Saturation Sodium 125 L Potassium Chloride 86 L Carbon Dioxide BUN 26 H Creatinine 6.06 H Est GFR (CKD-EPI)AfAm Est GFR (CKD-EPI)NonAf BUN/Creatinine Ratio Glucose 218 H POC Glucose (mg/dL) 206 H Calcium 8.0 L Magnesium 1.4 L Alkaline Phosphatase C-Reactive Protein Total Protein Albumin Procalcitonin Urine Protein Urine Glucose (UA) Urine Blood Ur Leukocyte Esterase Urine RBC Urine WBC 05/23/21 05/23/21 05/23/21 08:45 08:45 12:20 RBC Hgb Hct Lymphocytes # ESR ABG pCO2 ABG pO2 ABG HCO3 ABG Total CO2 ABG O2 Saturation Sodium Potassium Chloride Carbon Dioxide BUN Creatinine Est GFR (CKD-EPI)AfAm Est GFR (CKD-EPI)NonAf BUN/Creatinine Ratio Glucose POC Glucose (mg/dL) Calcium Magnesium Alkaline Phosphatase C-Reactive Protein 3.8 H Total Protein Albumin Procalcitonin 0.34 H Urine Protein 2+ H Urine Glucose (UA) Trace H Urine Blood Large H Ur Leukocyte Esterase Large H Urine RBC >182 H Urine WBC >182 H 05/23/21 05/23/21 05/23/21 13:25 17:37 19:30 RBC Hgb Hct Lymphocytes # ESR ABG pCO2 ABG pO2 ABG HCO3 ABG Total CO2 ABG O2 Saturation Sodium Potassium Chloride Carbon Dioxide BUN Creatinine Est GFR (CKD-EPI)AfAm Est GFR (CKD-EPI)NonAf BUN/Creatinine Ratio Glucose POC Glucose (mg/dL) 170 H 73 L 103 H Calcium Magnesium Alkaline Phosphatase C-Reactive Protein Total Protein Albumin Procalcitonin Urine Protein Urine Glucose (UA) Urine Blood Ur Leukocyte Esterase Urine RBC Urine WBC 05/23/21 05/23/21 05/23/21 19:53 20:18 20:18 RBC 3.21 L Hgb 10.5 L Hct 31.2 L Lymphocytes # 0.8 L ESR ABG pCO2 52 H ABG pO2 122 H ABG HCO3 32 H ABG Total CO2 34 H ABG O2 Saturation 99.0 H Sodium 124 L Potassium 3.2 L Chloride 86 L Carbon Dioxide BUN 26 H Creatinine 6.16 H Est GFR (CKD-EPI)AfAm Est GFR (CKD-EPI)NonAf BUN/Creatinine Ratio Glucose 104 H POC Glucose (mg/dL) Calcium 8.2 L Magnesium Alkaline Phosphatase 272 H C-Reactive Protein Total Protein 5.5 L Albumin 2.5 L Procalcitonin Urine Protein Urine Glucose (UA) Urine Blood Ur Leukocyte Esterase Urine RBC Urine WBC 05/24/21 05/24/21 05/24/21 04:30 04:30 07:22 RBC 3.39 L Hgb 11.1 L Hct 33.1 L Lymphocytes # 0.7 L ESR ABG pCO2 ABG pO2 ABG HCO3 ABG Total CO2 ABG O2 Saturation Sodium 127 L Potassium 3.4 L Chloride 87 L Carbon Dioxide BUN Creatinine 6.0 H Est GFR (CKD-EPI)AfAm 9.7 L Est GFR (CKD-EPI)NonAf 8.4 L BUN/Creatinine Ratio 3.83 L Glucose 168 H POC Glucose (mg/dL) 208 H Calcium 8.4 L Magnesium Alkaline Phosphatase C-Reactive Protein Total Protein Albumin Procalcitonin Urine Protein Urine Glucose (UA) Urine Blood Ur Leukocyte Esterase Urine RBC Urine WBC 05/24/21 11:59 RBC Hgb Hct Lymphocytes # ESR ABG pCO2 ABG pO2 ABG HCO3 ABG Total CO2 ABG O2 Saturation Sodium Potassium Chloride Carbon Dioxide BUN Creatinine Est GFR (CKD-EPI)AfAm Est GFR (CKD-EPI)NonAf BUN/Creatinine Ratio Glucose POC Glucose (mg/dL) 171 H Calcium Magnesium Alkaline Phosphatase C-Reactive Protein Total Protein Albumin Procalcitonin Urine Protein Urine Glucose (UA) Urine Blood Ur Leukocyte Esterase Urine RBC Urine WBC - Diagnostic Findings Chest x-ray: report reviewed, image reviewed Assessment and Plan Assessment: Metabolic encephalopathy combination of hypoglycemia, hypercapnic respirator failure, sepsis. Urinary Tract infection End-stage renal disease on peritoneal dialysis L1 vertebral fracture Chronic atrial fibrillation on beta blockers and direct oral anticoagulants Hypoglycemia with Diabetes mellitus Urinary tract infection Morbid obesity and sleep disorder breathing and sleep apnea Dyslipidemia End-stage renal disease on peritoneal dialysis Advanced dementia Recurrent depression Plan: Continue BiPAP each night and when necessary during the day Broad-spectrum antibiotics Avoid benzodiazepine and narcotics as much as possible Continue direct anticoagulant Continue home medications Further plan of care as per clinical response of patient Time with Patient: Greater than 30
--- NOTE | 2021-05-25 09:36 | P.PN ---
Subjective Progress Note Date: 05/25/21 Principal diagnosis: Metabolic encephalopathy combination of hypoglycemia, hypercapnic respirator failure, sepsis. Urinary Tract infection End-stage renal disease on peritoneal dialysis L1 vertebral fracture Chronic atrial fibrillation on beta blockers and direct oral anticoagulants Hypoglycemia with Diabetes mellitus Urinary tract infection Morbid obesity and sleep disorder breathing and sleep apnea Dyslipidemia End-stage renal disease on peritoneal dialysis Advanced dementia Recurrent depression 05/25/2021, patient seen eval examined this morning on BiPAP breathing comfortably, more awake now but however remains confused him a labs aren't done today, blood glucose is 1:30, she has been getting peritoneal dialysis and regular basis Patient is a 76-year-old male who was admitted into the hospital with progressive increased confusion which started about 3-4 days ago and was getting worse on the day of admission he was noted to have a sugar of 35 by EMS, patient has not been eating well with poor appetite, most of the data has been obtained from the chart as patient is nondisplaced in as stated he didn't give a detailed history, spine surgery has been following and has a back brace, his blood pressure also having fluctuation prior to coming into the hospital. Off note that on arrival he was afebrile with saturation 100% stable hemodynamics, labs are significant for hyponatremia with sodium 126, hypokalemia potassium 3.1, with BUN/creatinine of , sugar were 54 improved to 90 subsequently, LFTs were within normal limit Jay[place] mildly elevated, COVID-19 was negative, urine was dark brown turbid in appearance infected, labs reviewed improvement of hyponatremia slightly, however BUN/creatinine remains elevated 23/6 and arterial blood gas on admission revealed pH of 7.4 pCO2 52 pO2 122 on 2 L oxygen, patient being treated for and continued on direct anticoagulant antihypertensive and broad-spectrum antibiotics IV Rocephin with supportive care from BiPAP, patient has been continued on his peritoneal dialysis with peripheral following, patient initial admitting chest x-ray consistent with CHF finding with no significant change interstitial edema small pleural effusion on the right side subsequent x- ray performed , last night patient had a rapid response found to be somnolent not following simple commands, thought to have altered mental status related to hypercapnia due to baseline COPD and sleep disorder breathing patient has been placed on CPAP during support and as needed during the day, on evaluation today patient more arousable following simple commands has been on BiPAP overnight Objective - Vital Signs Vital signs: Vital Signs Temp 98.1 F 05/25/21 03:29 Pulse 72 05/25/21 03:29 Resp 18 05/25/21 03:29 BP 135/78 05/25/21 03:29 Pulse Ox 97 05/25/21 03:29 Intake & Output 05/24/21 05/25/21 05/25/21 18:59 06:59 18:59 Intake Total 160 Output Total 0 Balance 160 Weight 113.398 kg Intake: Oral 160 Output: Urine 0 Other: Voiding Method Bedpan Diaper - Exam Gen: This is a 76-year-old obese male. He is resting on the bed and appears to be comfortable and in no acute distress. HEENT: Head is atraumatic, normocephalic. Pupils equal, round. Sclerae is anicteric. NECK: Supple. No JVD. No lymphadenopathy. No thyromegaly. LUNGS: Clear to auscultation. No wheezes or rhonchi. No intercostal retractions. HEART: Regular rate and rhythm. Systolic murmur. ABDOMEN: Soft. Bowel sounds are present. No masses. No tenderness. EXTREMITIES: No pedal edema. No calf tenderness. Multiple areas of ecchymosis on extremities. NEUROLOGICAL: Patient is awake, alert and oriented x3. Cranial nerves 2 through 12 are grossly intact. - Labs CBC & Chem 7: 05/24/21 04:30 05/24/21 04:30 Labs: Abnormal Lab Results - Last 24 Hours (Table) 05/24/21 05/24/21 05/24/21 Range/Units 04:30 11:59 17:19 Sodium 127 L (135-145) mmol/L Potassium 3.4 L (3.5-5.5) mmol/L Chloride 87 L (96-109) mmol/L Creatinine 6.0 H (0.6-1.5) mg/dL Est GFR (CKD-EPI)AfAm 9.7 L (60.0-200.0) Est GFR (CKD-EPI)NonAf 8.4 L (60.0-200.0) BUN/Creatinine Ratio 3.83 L (12.00-20.00) Ratio Glucose 168 H (70-110) mg/dL POC Glucose (mg/dL) 171 H 200 H (75-99) mg/dL Calcium 8.4 L (8.7-10.3) mg/dL Hep Bs Antibody (Nonreactive) 05/24/21 05/24/21 05/25/21 Range/Units 20:24 23:02 07:24 Sodium (135-145) mmol/L Potassium (3.5-5.5) mmol/L Chloride (96-109) mmol/L Creatinine (0.6-1.5) mg/dL Est GFR (CKD-EPI)AfAm (60.0-200.0) Est GFR (CKD-EPI)NonAf (60.0-200.0) BUN/Creatinine Ratio (12.00-20.00) Ratio Glucose (70-110) mg/dL POC Glucose (mg/dL) 166 H 130 H (75-99) mg/dL Calcium (8.7-10.3) mg/dL Hep Bs Antibody Reactive A (Nonreactive) Microbiology - Last 24 Hours (Table) 05/23/21 12:20 Urine Culture - Final Urine,Catheterized 05/22/21 22:35 Gram Stain - Preliminary Peritoneal Fluid Body Fluid Culture - Preliminary Assessment and Plan Assessment: Metabolic encephalopathy combination of hypoglycemia, hypercapnic respirator failure, sepsis. Urinary Tract infection End-stage renal disease on peritoneal dialysis L1 vertebral fracture Chronic atrial fibrillation on beta blockers and direct oral anticoagulants Hypoglycemia with Diabetes mellitus Urinary tract infection Morbid obesity and sleep disorder breathing and sleep apnea Dyslipidemia End-stage renal disease on peritoneal dialysis Advanced dementia Recurrent depression Plan: Continue BiPAP each night and when necessary during the day Broad-spectrum antibiotics Avoid benzodiazepine and narcotics as much as possible Continue direct anticoagulant Continue home medications Further plan of care as per clinical response of patient Time with Patient: Greater than 30
[2021-05-25 11:06] LABS: African American GFR (CKD) 9.2 (60.0-200.0); Anion Gap 14.5 mmol/L (10.00-18.00); BUN/Creat Ratio 3.44 Ratio (12.00-20.00); Blood Urea Nitrogen 21.7 mg/dL (9.0-27.0); Calcium 8.6 mg/dL (8.7-10.3); Carbon Dioxide 24.5 mmol/L (20.0-27.5); Magnesium 1.9 mg/dL (1.5-2.4); Non-African American GFR(CKD) 7.9 (60.0-200.0); Potassium 3.5 mmol/L (3.5-5.5)
--- NOTE | 2021-05-25 11:47 | P.PN ---
Subjective Progress Note Date: 05/25/21 HISTORY OF PRESENT ILLNESS This is a 76-year-old patient of Dr. Wang with a past medical history significant for COPD, diabetes mellitus2, end stage renal disease on CAPD, hy pertension, chronic atrial fibrillation, sick sinus syndrome status post single- chamber permanent pacemaker, BPH, hyperlipidemia, gastroesophageal reflux disease, recurrent depression, vitamin D deficiency, obstructive sleep apnea. Patient has had several hospitalizations that she air and recently was at [facility] for subacute rehab. Patient now presents with confusion. His states that he has been confused for the past 3-4 days and worsened on Saturday. She states she got a blood sugar in the morning of 127 but EMS obtained a blood sugar of 35. She states he's not been eating well and has not been out of bed since he left [facility] back April 29. She states that she has to have EMS contacted and come to the home and help lift him many times. She denies any fever or chills. Patient has been seen by orthopedic spine and was placed in a back brace which apparently he has not been using. Patient's also states that his blood pressure has had severe fluctuations, normal while he is laying in bed and when he stands it drops. He has been maintained on insulin pump. Patient presented to [facility] emergency center and found to be afebrile, heart rate 65, blood pressure 111/66, pulse ox 100%. EKG is ventricularly paced rhythm. WBC 8.3, hemoglobin 11.2, platelet count 283. Sodium 126, potassium 3.1, chloride 88, CO2 31, BUN 26 and creatinine 6.14. I nitial blood sugar was 54 with repeat of 90. Total bilirubin 0.8, AST 48, ALT 27, alkaline phosphatase 268. COVID19 negative. Urinalysis obtained by straight cath was dark brown, turbid, blood large, leukoesterase large, RBCs greater than 182, wbc's greater than 182. Peritoneal fluid was sent for culture. Chest x-ray: Correlate for heart failure otherwise consider diffuse interstitial pneumonia. Patient is seen today in the emergency center waiting for a bed on the [facility] floor, consult in place for nephrology. 05/24: Patient is seen for follow-up, wearing a BiPAP machine, she had an event last night, where he was more obtunded, and patient's heart rate went down to the 45, patient was asleep at the time, and 18 was called in, and a BiPAP was requested to be put in, pCO2 is elevated, on blood gases. Patient has no CPAP device a BiPAP device at home, also landing for ECF placement, they have required that the patient be transitioned to hemodialysis, instead of peritoneal dialysis. Blood cultures are currently pending, urine cultures are pending, Dr. Yane arevalo is consulted, for hypercarbia with suspected sleep apnea untreated his blood sugars in the 150s to 170s, off insulin pump, on basal bolus insulin 05/25: Patient is in for follow-up, urine cultures negative, peritoneal dialysis is still currently pending for culture, patient is wearing the BiPAP day and night, patient is eating between BiPAP treatments, blood sugars are stable between 1:30 to 200, while on the basal bolus treatments, patient has plans for going to subacute rehab, not home. From nursing staff, patient cannot receive peritoneal devices, in the senior living, and would like to transition to he modialysis while at subacute rehab REVIEW OF SYSTEMS Constitutional: No fever, no chills, no night sweats. No weight change. Reports weakness, reports fatigue reports lethargy. Reports daytime sleepiness. EENT: No headache. No blurred vision or double vision, no loss of vision. No loss of Hearing, no ringing in the ears, no dizziness. No nasal drainage or congestion. No epistaxis. No sore throat. Lungs: No shortness of breath, cough, no sputum production. No wheezing. Cardiovascular: No chest pain, no lower extremity edema. No palpitations. No paroxysmal nocturnal dyspnea. No orthopnea. No lightheadedness or dizziness. No syncopal episodes. Abdominal: No abdominal pain. No nausea, vomiting. No diarrhea. No constipation. No bloody or tarry stools.. No loss of appetite. CAPD. Genitourinary: No dysuria, no frequency, urgency. No urinary retention. Patient makes very little urine Musculoskeletal: No myalgias. Reports muscle weakness, reports gait dysfunction, reports frequent falls. Reports back pain. No neck pain. Integumentary: Reports abrasions and ecchymosis, no lesions. No rash or pruritus. No unusual bruising. No change in hair or nails. Neurologic: No aphasia. No facial droop. Reported change in mentation. No head injury. No headache. No paralysis. No paresthesia. Psychiatric: No depression. No anxiety. No mood swings. Endocrine: Noted abnormal blood sugars. No weight change. No excessive sweating or thirst. No cold intolerance. PHYSICAL EXAMINATION Gen: This is a 76-year-old obese male. He is resting on stretcher and appears to be comfortable and in no acute distress. Patient's is at bedside. HEENT: Head is atraumatic, normocephalic. Pupils equal, round. Sclerae is anicteric. NECK: Supple. No JVD. No lymphadenopathy. No thyromegaly. LUNGS: Clear to auscultation. No wheezes or rhonchi. No intercostal retractions. HEART: Regular rate and rhythm. Systolic murmur. ABDOMEN: Soft. Bowel sounds are present. No masses. No tenderness. EXTREMITIES: No pedal edema. No calf tenderness. Multiple areas of ecchymosis on extremities. NEUROLOGICAL: Patient is awake, alert and oriented x3. Cranial nerves 2 through 12 are grossly intact. ASSESSMENT AND PLAN 1. Metabolic encephalopathy secondary to hypoglycemia, rule out infection. Patient placed on insulin scale only for now. He is status post dextrose 50% 2. Peritoneal fluid sent for culture, urine culture in progress. Obtain CRP, sed rate, calcitonin 2. Severe generalized weakness, fatigue possibly related to multiple comorbidities. PT and OT consults. 3. End-stage renal disease on CAPD. Consult with nephrology. Continue sodium bicarb 650 mg daily 4. L1 transverse vertebral fracture. Patient to be maintained on back brace while out of bed. 5. Chronic atrial fibrillation. Continue eliquis, Lopressor 25 mg as directedPulse rate has been well controlled. 6. Diabetes mellitus type II, insulin requiring uncontrolled with hypoglycemia. S1 scale only for now. 7. COPD. Continue Singulair 10 mg by mouth at bedtime 8. Hypertension, stable. Continue Lopressor as needed. 9. Autonomic hypotension secondary to diabetes. Patient started on midodrine 5 mg 3 times daily. 10. BPH. Continue Flomax 0.4 mg 11. Obstructive sleep apnea. Continue CPAP. 12. Hyperlipidemia. Atorvastatin 40 mg 13. Chronic kidney disease mineral bone disorder. Continue PhosLo 1334 mg 3 times daily. 14. Sick sinus syndrome status post single-chamber permanent pacemaker. 15. Recurrent depression. Continue Cymbalta 60 mg daily, Seroquel 25 mg at bedtime, trazodone 50 mg at bedtime. 16. Dementia. Continue Aricept 5 mg at bedtime. 17. Gastroesophageal reflux disease and GI prophylaxis. Protonix. 18. DVT prophylaxis. Eliquis. 19. Hypercarbic respiratory failure, currently on BiPAP, patient to be placed on outpatient BiPAP or Trilogy Status: Pending, CODE STATUS to be discussed with the daughter patient is not capable of making decision at this time Patient will be admitted to the hospital for a minimum of 2 night stay. DISCHARGE PLAN TBD. Consult with PT and OT. Current Medications Acetaminophen (Acetaminophen Tab 325 Mg Tab) 650 mg PO Q6HR PRN PRN Reason: Mild Pain or Fever > 100.5 Hydrocodone Bitart/Acetaminophen (Hydrocodone/Apap 5-325mg 1 Each Tab) 1 each PO Q4HR PRN PRN Reason: Moderate Pain Last Admin: 05/24/21 22:19 Dose: 1 each Documented by: Amlodipine Besylate (Amlodipine 5 Mg Tab) 5 mg PO BID@0900,1400 [facility] Last Admin: 05/25/21 08:39 Dose: 5 mg Documented by: Apixaban (Apixaban 2.5 Mg Tablet) 2.5 mg PO BID@0900,1700 [facility]; Protocol Last Admin: 05/25/21 08:39 Dose: 2.5 mg Documented by: Atorvastatin Calcium (Atorvastatin 40 Mg Tab) 40 mg PO HS [facility] Last Admin: 05/24/21 22:20 Dose: 40 mg Documented by: Calcium Acetate (Calcium Acetate 667 Mg Tab) 1,334 mg PO AC-TID [facility] Last Admin: 05/25/21 08:39 Dose: 1,334 mg Documented by: Cinacalcet (Cinacalcet 30 Mg Tab) 90 mg PO MoWeFr@0900 [facility] Last Admin: 05/24/21 10:48 Dose: 90 mg Documented by: Duloxetine HCl (Duloxetine Hcl 60 Mg Capsule.Dr) 60 mg PO DAILY [facility] Last Admin: 05/25/21 08:39 Dose: 60 mg Documented by: Ceftriaxone Sodium 1 gm/ (Sodium Chloride) 50 mls @ 100 mls/hr IVPB Q24HR [facility] Last Admin: 05/25/21 08:41 Dose: 100 mls/hr Documented by: Peritoneal Dialysis Solution (Delflex With 2.5% Dextrose (2,000 Ml)) 50 g in 2,000 mls @ 0 mls/hr INTRAPERIT Q6H [facility]; Protocol Last Admin: 05/25/21 09:32 Dose: 2,000 mls/hr Documented by: Insulin Aspart (Insulin Aspart (Novolog) 100 Unit/Ml Vial) 0 unit SQ ACHS [facility]; Protocol Last Admin: 05/25/21 08:22 Dose: Not Given Documented by: Insulin Detemir (Insulin Detemir (Levemir) 100 Unit/Ml Syr) 8 unit SQ [facility] Last Admin: 05/24/21 22:19 Dose: 8 unit Documented by: Midodrine (Midodrine 5 Mg Tab) 5 mg PO BID@0900,1700 PRN PRN Reason: low bp Midodrine (Midodrine 5 Mg Tab) 5 mg PO AC-TID [facility] Last Admin: 05/25/21 08:41 Dose: Not Given Documented by: Montelukast Sodium (Montelukast 10 Mg Tab) 10 mg PO HS@1700 [facility] Last Admin: 05/24/21 16:00 Dose: 10 mg Documented by: Naloxone HCl (Naloxone 0.4 Mg/Ml 1 Ml Vial) 0.2 mg IV Q2M PRN PRN Reason: Opioid Reversal Nicotine Polacrilex (Nicotine Gum (Polacrilex) 2 Mg Gum) 4 mg BUCCAL Q2H PRN PRN Reason: SMOKING CESSATION Pantoprazole Sodium (Pantoprazole 40 Mg Tablet) 40 mg PO AC-BRKFST [facility] Last Admin: 05/25/21 08:39 Dose: 40 mg Documented by: Quetiapine Fumarate (Quetiapine 25 Mg Tab) 25 mg PO DAILY@1700 [facility] Last Admin: 05/24/21 16:00 Dose: 25 mg Documented by: Sodium Bicarbonate (Sodium Bicarbonate Tab 650 Mg Tab) 650 mg PO DAILY@1700 [facility] Last Admin: 05/24/21 16:00 Dose: 650 mg Documented by: Tamsulosin HCl (Tamsulosin 0.4 Mg Cap.Er.24h) 0.4 mg PO DAILY@1400 [facility] Last Admin: 05/24/21 16:00 Dose: 0.4 mg Documented by: Vital Signs Temp 98.1 F 05/25/21 03:29 Pulse 72 05/25/21 03:29 Resp 18 05/25/21 03:29 BP 135/78 05/25/21 03:29 Pulse Ox 97 05/25/21 03:29 Intake & Output 05/24/21 05/25/21 05/25/21 18:59 06:59 18:59 Intake Total 160 Output Total 0 Balance 160 Weight 113.398 kg Intake: Oral 160 Output: Urine 0 Other: Voiding Method Bedpan Bedpan Diaper Diaper # Bowel Movements 1 Laboratory Results - Last 24 Hours 05/24/21 05/24/21 05/24/21 04:30 11:59 17:19 Sodium 127 L Potassium 3.4 L Chloride 87 L Carbon Dioxide 23.9 Anion Gap 16.10 BUN 23.0 Creatinine 6.0 H Est GFR (CKD-EPI)AfAm 9.7 L Est GFR (CKD-EPI)NonAf 8.4 L BUN/Creatinine Ratio 3.83 L Glucose 168 H POC Glucose (mg/dL) 171 H 200 H POC Glu Bridge Expert ID La Nena Bejaranojeremiah Hernandez Leta Calcium 8.4 L Magnesium 1.9 Hep Bs Antigen Hep Bs Antibody Hep Bs Antibody, Quant Hep B Core Total Ab 05/24/21 05/24/21 05/25/21 20:24 23:02 05:12 Sodium 128 L Potassium 3.5 Chloride 89 L Carbon Dioxide 24.5 Anion Gap 14.50 BUN 21.7 Creatinine 6.3 H Est GFR (CKD-EPI)AfAm 9.2 L Est GFR (CKD-EPI)NonAf 7.9 L BUN/Creatinine Ratio 3.44 L Glucose 142 H POC Glucose (mg/dL) 166 H POC Glu Bridge Expert ID Radha Briones Calcium 8.6 L Magnesium 1.9 Hep Bs Antigen Nonreactive Hep Bs Antibody Reactive A Hep Bs Antibody, Quant 19.2 Hep B Core Total Ab Nonreactive 05/25/21 07:24 Sodium Potassium Chloride Carbon Dioxide Anion Gap BUN Creatinine Est GFR (CKD-EPI)AfAm Est GFR (CKD-EPI)NonAf BUN/Creatinine Ratio Glucose POC Glucose (mg/dL) 130 H POC Glu Bridge Expert ID Leta Hernandez Calcium Magnesium Hep Bs Antigen Hep Bs Antibody Hep Bs Antibody, Quant Hep B Core Total Ab Objective - Vital Signs Vital signs: Vital Signs Temp 98.1 F 05/25/21 03:29 Pulse 72 05/25/21 03:29 Resp 18 05/25/21 03:29 BP 135/78 05/25/21 03:29 Pulse Ox 97 05/25/21 03:29 Intake & Output 05/24/21 05/25/21 05/25/21 18:59 06:59 18:59 Intake Total 160 Output Total 0 Balance 160 Weight 113.398 kg Intake: Oral 160 Output: Urine 0 Other: Voiding Method Bedpan Bedpan Diaper Diaper # Bowel Movements 1 - Labs CBC & Chem 7: 05/24/21 04:30 05/25/21 05:12 Labs: Abnormal Lab Results - Last 24 Hours (Table) 05/24/21 05/24/21 05/24/21 Range/Units 04:30 11:59 17:19 Sodium 127 L (135-145) mmol/L Potassium 3.4 L (3.5-5.5) mmol/L Chloride 87 L (96-109) mmol/L Creatinine 6.0 H (0.6-1.5) mg/dL Est GFR (CKD-EPI)AfAm 9.7 L (60.0-200.0) Est GFR (CKD-EPI)NonAf 8.4 L (60.0-200.0) BUN/Creatinine Ratio 3.83 L (12.00-20.00) Ratio Glucose 168 H (70-110) mg/dL POC Glucose (mg/dL) 171 H 200 H (75-99) mg/dL Calcium 8.4 L (8.7-10.3) mg/dL Hep Bs Antibody (Nonreactive) 05/24/21 05/24/21 05/25/21 Range/Units 20:24 23:02 05:12 Sodium 128 L (135-145) mmol/L Potassium (3.5-5.5) mmol/L Chloride 89 L (96-109) mmol/L Creatinine 6.3 H (0.6-1.5) mg/dL Est GFR (CKD-EPI)AfAm 9.2 L (60.0-200.0) Est GFR (CKD-EPI)NonAf 7.9 L (60.0-200.0) BUN/Creatinine Ratio 3.44 L (12.00-20.00) Ratio Glucose 142 H (70-110) mg/dL POC Glucose (mg/dL) 166 H (75-99) mg/dL Calcium 8.6 L (8.7-10.3) mg/dL Hep Bs Antibody Reactive A (Nonreactive) 05/25/21 Range/Units 07:24 Sodium (135-145) mmol/L Potassium (3.5-5.5) mmol/L Chloride (96-109) mmol/L Creatinine (0.6-1.5) mg/dL Est GFR (CKD-EPI)AfAm (60.0-200.0) Est GFR (CKD-EPI)NonAf (60.0-200.0) BUN/Creatinine Ratio (12.00-20.00) Ratio Glucose (70-110) mg/dL POC Glucose (mg/dL) 130 H (75-99) mg/dL Calcium (8.7-10.3) mg/dL Hep Bs Antibody (Nonreactive) Microbiology - Last 24 Hours (Table) 05/23/21 12:20 Urine Culture - Final Urine,Catheterized 05/22/21 22:35 Gram Stain - Preliminary Peritoneal Fluid Body Fluid Culture - Preliminary
[2021-05-25 12:37] LABS: Glucose,Whole Blood 159 mg/dL (75-99)
--- NOTE | 2021-05-25 12:50 | P.PN ---
Subjective Progress Note Date: 05/25/21 Follow-up for ESRD on peritoneal dialysis. Family at bedside. On BiPAP today. Objective - Vital Signs Vital signs: Vital Signs Temp 97.4 F L 05/25/21 11:35 Pulse 63 05/25/21 11:35 Resp 20 05/25/21 11:35 BP 140/64 05/25/21 11:35 Pulse Ox 97 05/25/21 11:35 Intake & Output 05/24/21 05/25/21 05/25/21 18:59 06:59 18:59 Intake Total 160 Output Total 0 Balance 160 Weight 113.398 kg Intake: Oral 160 Output: Urine 0 Other: Voiding Method Bedpan Bedpan Diaper Diaper # Bowel Movements 1 - Exam No acute distress S1-S2 heard Decreased breath sounds Left upper arm aVF Edema - Labs CBC & Chem 7: 05/24/21 04:30 05/25/21 05:12 Labs: Abnormal Lab Results - Last 24 Hours (Table) 05/24/21 05/24/21 05/24/21 Range/Units 17:19 20:24 23:02 Sodium (135-145) mmol/L Chloride (96-109) mmol/L Creatinine (0.6-1.5) mg/dL Est GFR (CKD-EPI)AfAm (60.0-200.0) Est GFR (CKD-EPI)NonAf (60.0-200.0) BUN/Creatinine Ratio (12.00-20.00) Ratio Glucose (70-110) mg/dL POC Glucose (mg/dL) 200 H 166 H (75-99) mg/dL Calcium (8.7-10.3) mg/dL Hep Bs Antibody Reactive A (Nonreactive) 05/25/21 05/25/21 05/25/21 Range/Units 05:12 07:24 12:35 Sodium 128 L (135-145) mmol/L Chloride 89 L (96-109) mmol/L Creatinine 6.3 H (0.6-1.5) mg/dL Est GFR (CKD-EPI)AfAm 9.2 L (60.0-200.0) Est GFR (CKD-EPI)NonAf 7.9 L (60.0-200.0) BUN/Creatinine Ratio 3.44 L (12.00-20.00) Ratio Glucose 142 H (70-110) mg/dL POC Glucose (mg/dL) 130 H 159 H (75-99) mg/dL Calcium 8.6 L (8.7-10.3) mg/dL Hep Bs Antibody (Nonreactive) Microbiology - Last 24 Hours (Table) 05/22/21 22:35 Gram Stain - Preliminary Peritoneal Fluid Body Fluid Culture - Preliminary 05/23/21 12:20 Urine Culture - Final Urine,Catheterized Assessment and Plan Assessment: #1 hypoxic respiratory failure on BiPAP #2 ESRD on peritoneal dialysis #3 sepsis but no peritonitis, UTI #4 anemia with ESRD #5 hypertension with ESRD #6 metabolic bone disease Plan: #1 continue with peritoneal dialysis while in the hospital. If she gets discharged to subacute rehab, needs hemodialysis while in the rehab place. #2 ESRD medications
[2021-05-25] MEDS: TAMSULOSIN 0.4 MG CAP.ER.24H PO SCH (12:56)
[2021-05-25] MEDS: QUEtiapine 25 MG TAB PO SCH (16:49)
[2021-05-25] MEDS: MONTELUKAST 10 MG TAB PO SCH (16:49)
[2021-05-25] MEDS: SODIUM BICARBONATE TAB 650 MG TAB PO SCH (16:49)
[2021-05-25 16:59] LABS: Glucose,Whole Blood 175 mg/dL (75-99)
[2021-05-25 19:53] LABS: Glucose,Whole Blood 85 mg/dL (75-99)
[2021-05-25] MEDS: INSULIN DETEMIR (LEVEMIR) 100 UNIT/ML SYR SQ SCH (20:37)
[2021-05-25] MEDS: ATORVASTATIN 40 MG TAB PO SCH (21:24)
[2021-05-26] MEDS: DIALYSIS (PERIT 2.5%) 2,000 ML 50 G/2,000 ML BAG INTRAPERIT SCH ×3 (03:12→15:42)
[2021-05-26 04:50] VITALS: TEMP 97.5
[2021-05-26 07:20] LABS: Glucose,Whole Blood 191 mg/dL (75-99)
[2021-05-26] MEDS: PANTOPRAZOLE 40 MG TABLET PO SCH (09:19)
[2021-05-26] MEDS: amLODIPine 5 MG TAB PO SCH ×2 (09:19→14:44)
[2021-05-26] MEDS: CALCIUM ACETATE 667 MG TAB PO SCH ×2 (09:19→14:16)
[2021-05-26] MEDS: DULoxetine HCL 60 MG CAPSULE.DR PO SCH (09:19)
[2021-05-26] MEDS: APIXABAN 2.5 MG TABLET PO SCH (09:19)
[2021-05-26] MEDS: MIDODRINE 5 MG TAB PO SCH ×2 (09:19→14:43)
[2021-05-26] MEDS: CINACALCET 30 MG TAB PO SCH (09:19)
[2021-05-26] MEDS: INSULIN ASPART (NovoLOG) 100 UNIT/ML VIAL SQ SCH ×2 (09:20→14:16)
[2021-05-26 11:39] VITALS: RESP 20
--- NOTE | 2021-05-26 11:55 | P.PN ---
Subjective Progress Note Date: 05/26/21 Follow-up for ESRD on peritoneal dialysis. Objective - Vital Signs Vital signs: Vital Signs Temp 97.5 F L 05/26/21 11:38 Pulse 63 05/26/21 11:38 Resp 20 05/26/21 11:38 BP 125/70 05/26/21 11:38 Pulse Ox 99 05/26/21 11:38 Intake & Output 05/25/21 05/26/21 05/26/21 18:59 06:59 18:59 Intake Total 358 400 240 Balance 358 400 240 Intake: Oral 358 400 240 Other: Voiding Method Bedpan Bedpan Bedpan Diaper Diaper Diaper Incontinent Incontinent # Voids 1 # Bowel Movements 1 - Exam No acute distress S1-S2 heard Decreased breath sounds Left upper arm aVF Edema - Labs CBC & Chem 7: 05/24/21 04:30 05/25/21 05:12 Labs: Abnormal Lab Results - Last 24 Hours (Table) 05/25/21 05/25/21 05/26/21 Range/Units 12:35 16:55 07:18 POC Glucose (mg/dL) 159 H 175 H 191 H (75-99) mg/dL Microbiology - Last 24 Hours (Table) 05/22/21 22:35 Gram Stain - Preliminary Peritoneal Fluid Body Fluid Culture - Preliminary Assessment and Plan Assessment: #1 hypoxic respiratory failure #2 ESRD on peritoneal dialysis #3 sepsis but no peritonitis, UTI #4 anemia with ESRD #5 hypertension with ESRD #6 metabolic bone disease Plan: #1 continue with peritoneal dialysis while in the hospital. Hemodialysis while in sub acute rehab #2 ESRD medications
[2021-05-26 11:58] LABS: Glucose,Whole Blood 202 mg/dL (75-99)
--- NOTE | 2021-05-26 13:22 | P.DS ---
Providers Date of admission: 05/22/21 12:56 Expected date of discharge: 05/26/21 Attending physician: Armiad Xiong Consults: 05/22/21 19:43 Consult Physician Routine Consulting Provider: Ashly Michael Consult Reason/Comments: peritoneal dialysis Do you want consulting provider notified?: Yes 05/23/21 22:09 Consult Physician Routine Consulting Provider: Mateo Che Consult Reason/Comments: hypercapnia Do you want consulting provider notified?: Yes [facility]: HISTORY OF PRESENT ILLNESS This is a 76-year-old patient of Dr. Wang with a past medical history significant for COPD, diabetes mellitus2, end stage renal disease on CAPD, hypertension, chronic atrial fibrillation, sick sinus syndrome status post single-chamber permanent pacemaker, BPH, hyperlipidemia, gastroesophageal reflux disease, recurrent depression, vitamin D deficiency, obstructive sleep apnea. Patient has had several hospitalizations that she air and recently was at [facility] for subacute rehab. Patient now presents with confusion. His states that he has been confused for the past 3-4 days and worsened on Saturday. She states she got a blood sugar in the morning of 127 but EMS obtained a blood sugar of 35. She states he's not been eating well and has not been out of bed since he left [facility] back April 29. She states that she has to have EMS contacted and come to the home and help lift him many times. She denies any fever or chills. Patient has been seen by orthopedic spine and was placed in a back brace which apparently he has not been using. Patient's also states that his blood pressure has had severe fluctuations, normal while he is laying in bed and when he stands it drops. He has been maintained on insulin pump. Patient presented to [facility] emergency center and found to be afebrile, heart rate 65, blood pressure 111/66, pulse ox 100%. EKG is ventricularly paced rhythm. WBC 8.3, hemoglobin 11.2, platelet count 283. Sodium 126, potassium 3.1, chloride 88, CO2 31, BUN 26 and creatinine 6.14. Initial blood sugar was 54 with repeat of 90. Total bilirubin 0.8, AST 48, ALT 27, alkaline phosphatase 268. COVID19 negative. Urinalysis obtained by straight cath was dark brown, turbid, blood large, leukoesterase large, RBCs greater than 182, wbc's greater than 182. Peritoneal fluid was sent for culture. Chest x-ray: Correlate for heart failure otherwise consider diffuse interstitial pneumonia. Patient is seen today in the emergency center waiting for a bed on the MedSurg floor, consult in place for nephrology. 05/24: Patient is seen for follow-up, wearing a BiPAP machine, she had an event last night, where he was more obtunded, and patient's heart rate went down to the 45, patient was asleep at the time, and 18 was called in, and a BiPAP was requested to be put in, pCO2 is elevated, on blood gases. Patient has no CPAP device a BiPAP device at home, also landing for ECF placement, they have required that the patient be transitioned to hemodialysis, instead of peritoneal dialysis. Blood cultures are currently pending, urine cultures are pending, Dr. Yane arevalo is consulted, for hypercarbia with suspected sleep apnea untreated his blood sugars in the 150s to 170s, off insulin pump, on basal bolus insulin 05/25: Patient is in for follow-up, urine cultures negative, peritoneal dialysis is still currently pending for culture, patient is wearing the BiPAP day and night, patient is eating between BiPAP treatments, blood sugars are stable between 1:30 to 200, while on the basal bolus treatments, patient has plans for going to subacute rehab, not home. From nursing staff, patient cannot receive peritoneal devices, in the retirement, and would like to transition to hemodialysis while at subacute rehab 05/26 PT is being prepped for discharge to skilled ECF today, [facility], patient will receive hemodialysis chair time this saturday, wearing 2 L by nasal cannula, no new problems today, vitals are stable, blood sugars stable, no insulin pump post discharge, this could be done as an outpatient with the primary medical staff physician, NovoLog bandar, and will be adjusted as an outpatient, continue Levemir 8 units daily REVIEW OF SYSTEMS Constitutional: No fever, no chills, no night sweats. No weight change. Reports weakness, reports fatigue reports lethargy. Reports daytime sleepiness. EENT: No headache. No blurred vision or double vision, no loss of vision. No loss of Hearing, no ringing in the ears, no dizziness. No nasal drainage or congestion. No epistaxis. No sore throat. Lungs: No shortness of breath, cough, no sputum production. No wheezing. Cardiovascular: No chest pain, no lower extremity edema. No palpitations. No paroxysmal nocturnal dyspnea. No orthopnea. No lightheadedness or dizziness. No syncopal episodes. Abdominal: No abdominal pain. No nausea, vomiting. No diarrhea. No constipation. No bloody or tarry stools.. No loss of appetite. CAPD. Genitourinary: No dysuria, no frequency, urgency. No urinary retention. Patient makes very little urine Musculoskeletal: No myalgias. Reports muscle weakness, reports gait dysfunction, reports frequent falls. Reports back pain. No neck pain. Integumentary: Reports abrasions and ecchymosis, no lesions. No rash or pruritus. No unusual bruising. No change in hair or nails. Neurologic: No aphasia. No facial droop. Reported change in mentation. No head injury. No headache. No paralysis. No paresthesia. Psychiatric: No depression. No anxiety. No mood swings. Endocrine: Noted abnormal blood sugars. No weight change. No excessive sweating or thirst. No cold intolerance. ASSESSMENT AND PLAN 1. Metabolic encephalopathy secondary to hypoglycemia, rule out infection. Patient placed on insulin scale only for now. He is status post dextrose 50% 2. Peritoneal fluid sent for culture, urine culture in progress. Obtain CRP, sed rate, calcitonin urine culture negative, pericardial fluid analysis negative for growth 2. Severe generalized weakness, fatigue possibly related to multiple comorbidities. PT and OT consults. 3. End-stage renal disease on CAPD. Consult with nephrology. Continue sodium bicarb 650 mg daily 4. L1 transverse vertebral fracture. Patient to be maintained on back brace while out of bed. back brace while on therapies at [facility] 5. Chronic atrial fibrillation. Continue eliquis, Lopressor 25 mg as directedPulse rate has been well controlled. 6. Diabetes mellitus type II, insulin requiring uncontrolled with hypoglycemia. S1 scale only for now. Discontinue insulin pump, until he sees his own medical staff physician, secondary to hypoglycemia episodes 7. COPD. Continue Singulair 10 mg by mouth at bedtime 8. Hypertension, stable. Continue Lopressor as needed. 9. Autonomic hypotension secondary to diabetes. Patient started on midodrine 5 mg 3 times daily. 10. BPH. Continue Flomax 0.4 mg 11. Obstructive sleep apnea. Continue CPAP. 12. Hyperlipidemia. Atorvastatin 40 mg 13. Chronic kidney disease mineral bone disorder. Continue PhosLo 1334 mg 3 times daily. 14. Sick sinus syndrome status post single-chamber permanent pacemaker. 15. Recurrent depression. Continue Cymbalta 60 mg daily, Seroquel 25 mg at b edtime, trazodone 50 mg at bedtime. 16. Dementia. Continue Aricept 5 mg at bedtime. 17. Gastroesophageal reflux disease and GI prophylaxis. Protonix. 18. DVT prophylaxis. Eliquis. 19. Hypercarbic respiratory failure, currently on BiPAP, patient to be placed on outpatient HIS home CPAP device Status: Pending, CODE STATUS Patient will be admitted to the hospital for a minimum of 2 night stay. DISCHARGE PLAN Venita, for PT OT, with hemodialysis, to wear back brace during therapies. Patient Condition at Discharge: Stable Plan - Discharge Summary Discharge Rx Participant: No New Discharge Prescriptions: New Insulin Detemir (Levemir) [Levemir] 8 unit SQ HS ml INSULIN ASPART (NovoLOG) [NovoLOG (formulary)] 0 unit SQ ACHS ml Midodrine [ProAmatine] 5 mg PO AC-TID tab Continue Maureen-Chris 1 tab PO DAILY@1700 QUEtiapine FUMARATE [SEROquel] 25 mg PO DAILY@1700 Atorvastatin Calcium [Lipitor] 40 mg PO HS Nicotine Polacrilex [Nicorette] 4 mg BUCCAL Q2H PRN PRN Reason: SMOKING CESSATION Calcium Acetate [PhosLo] 1,334 mg PO AC-TID Cholecalciferol (Vitamin D3) [Vitamin D3 (125 MCG = 5,000 IU)] 125 mcg PO DAILY@1700 amLODIPine [Norvasc] 5 mg PO BID@0900,1400 Tamsulosin [Flomax] 0.4 mg PO DAILY@1400 traMADol HCL 50 mg PO DAILY PRN PRN Reason: Pain Cefuroxime [Ceftin] 250 mg PO BID 7 Days #20 tab DULoxetine HCL [Cymbalta] 60 mg PO DAILY Cinacalcet HCl [Sensipar] 90 mg PO MOWEFR Sodium Bicarbonate Tab 650 mg PO DAILY@1700 Montelukast [Singulair] 10 mg PO HS@1700 Omalizumab [Xolair] 300 mg SQ Q28D Pantoprazole [Protonix] 40 mg PO DAILY Apixaban [Eliquis] 2.5 mg PO BID@0900,1700 Changed Acetaminophen-Codeine 300-30mg [Tylenol w/codeine #3] 1 tab PO Q6HR PRN #12 tab PRN Reason: pain Discontinued Insulin Aspart (For Pump) [NovoLOG (For Pump)] 0.01 unit SQ-PUMP CONTINUOUS Midodrine [ProAmatine] 5 mg PO BID@0900,1700 PRN PRN Reason: low bp HYDROcodone/APAP 5-325MG [[place] 5-325] 1 tab PO Q4HR PRN PRN Reason: Pain Discharge Medication List Maureen-Chris 1 tab PO DAILY@1700 06/17/18 [History] Atorvastatin Calcium [Lipitor] 40 mg PO HS 02/16/20 [History] QUEtiapine FUMARATE [SEROquel] 25 mg PO DAILY@1700 02/16/20 [History] Nicotine Polacrilex [Nicorette] 4 mg BUCCAL Q2H PRN 02/19/20 [History] Calcium Acetate [PhosLo] 1,334 mg PO AC-TID 11/26/20 [History] Cinacalcet HCl [Sensipar] 90 mg PO MOWEFR 11/26/20 [History] DULoxetine HCL [Cymbalta] 60 mg PO DAILY 11/26/20 [History] Montelukast [Singulair] 10 mg PO HS@1700 03/28/21 [History] Sodium Bicarbonate Tab 650 mg PO DAILY@17003/28/21 [History] Apixaban [Eliquis] 2.5 mg PO BID@0900,1700 05/16/21 [History] Cholecalciferol (Vitamin D3) [Vitamin D3 (125 MCG = 5,000 IU)] 125 mcg PO DAILY@1700 05/16/21 [History] Omalizumab [Xolair] 300 mg SQ Q28D 05/16/21 [History] Pantoprazole [Protonix] 40 mg PO DAILY 05/16/21 [History] Tamsulosin [Flomax] 0.4 mg PO DAILY@1400 05/16/21 [History] amLODIPine [Norvasc] 5 mg PO BID@0900,1400 05/16/21 [History] traMADol HCL 50 mg PO DAILY PRN 05/22/21 [History] Acetaminophen-Codeine 300-30mg [Tylenol w/codeine #3] 1 tab PO Q6HR PRN #12 tab 05/26/21 [Rx] Cefuroxime [Ceftin] 250 mg PO BID 7 Days #20 tab 05/26/21 [Rx] INSULIN ASPART (NovoLOG) [NovoLOG (formulary)] 0 unit SQ ACHS ml 05/26/21 [Rx] Insulin Detemir (Levemir) [Levemir] 8 unit SQ HS ml 05/26/21 [Rx] Midodrine [ProAmatine] 5 mg PO AC-TID tab 05/26/21 [Rx] Follow up Appointment(s)/Referral(s): [facility] [NON-STAFF] - (Patient schedule will be Saturday, and Saturday at 1050. Patient will have to arrive at clinic at 1035.) Kiel Wang DO [Primary Care Provider] - 1-2 days Discharge Disposition: TRANSFER TO SNF/ECF
[2021-05-26 14:44] VITALS: BP 160/69; PULSE 73
[2021-05-26] MEDS: TAMSULOSIN 0.4 MG CAP.ER.24H PO SCH (14:44)
--- NOTE | 2021-05-30 12:24 | CDI ---
Documentation Clarification Form Date: 05/30/2021 12:12:00 PM From: Priya De La Cruz Admit Date: 05/22/2021 12:56:00 PM Patient Name: Henrry Pulido Visit Number: [id number] Discharge Date: 05/26/2021 04:35:00 PM ATTENTION: The Clinical Documentation Specialists (CDI) and [facility] Coding Staff appreciate your assistance in clarifying documentation. Please respond to the clarification below the line at the bottom and electronically sign. The CDI & [facility] Coding staff will review the response and follow-up if needed. Please note: Queries are made part of the Legal Health Record. If you have any questions, please contact the author of this message via ITS. Dr. Armida Xiong Per pulmonary consult and PN's 05/24, 05/25 and 05/26 "Metabolic encephalopathy combination of hypoglycemia, hypercapnic respiratory failure, sepsis, UTI. Sepsis diagnosis not carried to DCS. Per DCS rule out infection. Please clarify if patient had sepsis was it still not ruled out at time of discharge or was sepsis ruled out. History/Risk Factors: UTI, metabolic encephalopathy Clinical Indicators: WBC: 8.3 Vitals signs: 96.5 F, 65 bpm, 18, 111/66, 100% 3NC, Treatment: IV Rocephin Antibiotics: IV Rocephin In your professional opinion, please clarify if these findings signify one of the following conditions: [ ] Sepsis POA [ ] Sepsis, Not POA [ ] Sepsis ruled out [ xx ] Possible sepsis [ ] Other, please specify [ ] Unable to determine SIRS Criteria: 2 or more of the following may indicate SIRS -Temperature < 96.8F (36C) or > 101.0F (38.3C) -Heart Rate > 90 bpm -Respiratory Rate > 20 breaths/min or PaCO2 < 32 mmHg -White Blood Cell Count > 12,000 or < 4,000 cells/mm3 or > 10% bands MTDD
--- NOTE | 2021-06-07 10:54 | CDI ---
Documentation Clarification Form Date: 06/05/2021 11:17:00 AM From: Priya De La Cruz Admit Date: 05/22/2021 12:56:00 PM Patient Name: Henrry Pulido Visit Number: [id number] Discharge Date: 05/26/2021 04:35:00 PM ATTENTION: The Clinical Documentation Specialists (CDI) and [facility] Coding Staff appreciate your assistance in clarifying documentation. Please respond to the clarification below the line at the bottom and electronically sign. The CDI & [facility] Coding staff will review the response and follow-up if needed. Please note: Queries are made part of the Legal Health Record. If you have any questions, please contact the author of this message via ITS. Dr. Armida Xiong Per pulmonary consult and PN's 05/24, 05/25 and 05/26 "Metabolic encephalopathy combination of hypoglycemia, hypercapnic respiratory failure, sepsis, UTI. Sepsis diagnosis not carried to D Sum. Per D Sum. rule out infection. Please clarify if patient had sepsis was it still not ruled out at time of discharge or was sepsis ruled out. History/Risk Factors: UTI, metabolic encephalopathy Clinical Indicators: WBC: 8.3 Vitals signs: 96.5 F, 65 bpm, 18, 111/66, 100% 3NC, Treatment: IV Rocephin Antibiotics: IV Rocephin In your professional opinion, please clarify if these findings signify one of the following conditions: [ ] Sepsis POA [ ] Sepsis, Not POA [ x] Sepsis ruled out [ ] Other, please specify [ ] Unable to determine SIRS Criteria: 2 or more of the following may indicate SIRS -Temperature < 96.8F (36C) or > 101.0F (38.3C) -Heart Rate > 90 bpm -Respiratory Rate > 20 breaths/min or PaCO2 < 32 mmHg -White Blood Cell Count > 12,000 or < 4,000 cells/mm3 or > 10% bands MTDD
== END 2021-05-26 16:35 | DRG 637 ==
LOC: EC 10:47 → 5NMEDONC 12:56
PROVIDERS: ADMIT Family Medicine; ATTEND Family Medicine
PROC: 3E1M39Z Irrigation of Peritoneal Cavity using Dialysate, Percutaneous Approach (ICD-10-PCS; 2021-05-22)
PROC: 5A09457 Assistance with Respiratory Ventilation, 24-96 Consecutive Hours, Continuous Positive Airway Pressure (ICD-10-PCS; principal; 2021-05-24)
DX: E11.649 Type 2 diabetes mellitus with hypoglycemia without coma (principal); G93.41 Metabolic encephalopathy; J96.91 Respiratory failure, unspecified with hypoxia; J96.92 Respiratory failure, unspecified with hypercapnia; S32.019A Unspecified fracture of first lumbar vertebra, initial encounter for closed fracture; E87.1 Hypo-osmolality and hyponatremia; F33.9 Major depressive disorder, recurrent, unspecified; I13.2 Hypertensive heart and chronic kidney disease with heart failure and with stage 5 chronic kidney disease, or end stage renal disease; I48.20 Chronic atrial fibrillation, unspecified; N39.0 Urinary tract infection, site not specified; N18.6 End stage renal disease; E11.22 Type 2 diabetes mellitus with diabetic chronic kidney disease; D63.1 Anemia in chronic kidney disease; E66.01 Morbid (severe) obesity due to excess calories; E78.5 Hyperlipidemia, unspecified; E83.9 Disorder of mineral metabolism, unspecified; F03.90 Unspecified dementia, unspecified severity, without behavioral disturbance, psychotic disturbance, mood disturbance, and anxiety; E11.43 Type 2 diabetes mellitus with diabetic autonomic (poly)neuropathy; Z99.2 Dependence on renal dialysis; I95.89 Other hypotension; G47.33 Obstructive sleep apnea (adult) (pediatric); Z95.0 Presence of cardiac pacemaker; J44.9 Chronic obstructive pulmonary disease, unspecified; I50.9 Heart failure, unspecified; Z20.822 Contact with and (suspected) exposure to COVID-19; N40.0 Benign prostatic hyperplasia without lower urinary tract symptoms; E83.42 Hypomagnesemia; Z79.01 Long term (current) use of anticoagulants; E87.6 Hypokalemia; Z79.4 Long term (current) use of insulin; Z79.899 Other long term (current) drug therapy; Z82.49 Family history of ischemic heart disease and other diseases of the circulatory system; Z82.5 Family history of asthma and other chronic lower respiratory diseases; Z83.3 Family history of diabetes mellitus; Z87.440 Personal history of urinary (tract) infections; Z87.891 Personal history of nicotine dependence; Z96.41 Presence of insulin pump (external) (internal); Z88.1 Allergy status to other antibiotic agents; Z88.2 Allergy status to sulfonamides; Z90.49 Acquired absence of other specified parts of digestive tract; Z98.890 Other specified postprocedural states; Z83.79 Family history of other diseases of the digestive system
CPT/HCPCS: 36415; 36600; 71045; 80048; 80053; 81001; 82805; 83605; 83735; 84100; 84145; 85025; 85610; 85652; 85730; 86140; 86704; 86706; 87070; 87086; 87205; 87340; 87635; 89050; 93005; 94660; 99285

== ENCOUNTER 2021-05-28 20:30 | Observation (INO) | payer MEDICARE ==
--- NOTE | 2021-05-28 20:59 | ED ---
General Adult HPI - General Chief complaint: Urogenital Stated complaint: Groin hemorrage Time Seen by Provider: 05/28/21 20:50 Source: patient, EMS, RN notes reviewed, old records reviewed Mode of arrival: EMS Limitations: no limitations - History of Present Illness Initial comments: 76-year-old gentleman, alert to person only, presents to the emergency room from [facility] for bleeding episode possibly urinary. According to EMS, staff noticed blood on his sheets and unsure where it was coming from. Patient denies any pain. He does have a history of encephalopathy, dementia, peritoneal dialysis/hemodialysis, atrial fibrillation and is on eliquis, [id number] diabetes, hypertension, and BPH. He was just discharged from the hospital 2 days ago. His abdomen is soft and nontender. Vital signs are stable. He has been afebrile. Severity scale (1-10): 0 Consistency: now resolved Associated Symptoms: denies other symptoms - Related Data Home Medications Medication Instructions Recorded Confirmed Maureen-Chris 1 tab PO DAILY@1700 06/17/18 05/22/21 Atorvastatin Calcium [Lipitor] 40 mg PO HS 02/16/20 05/22/21 QUEtiapine FUMARATE [SEROquel] 25 mg PO DAILY@1700 02/16/20 05/22/21 Nicotine Polacrilex [Nicorette] 4 mg BUCCAL Q2H PRN 02/19/20 05/22/21 Calcium Acetate [PhosLo] 1,334 mg PO AC-TID 11/26/20 05/22/21 Cinacalcet HCl [Sensipar] 90 mg PO MOWEFR 11/26/20 05/22/21 DULoxetine HCL [Cymbalta] 60 mg PO DAILY 11/26/20 05/22/21 Montelukast [Singulair] 10 mg PO HS@1700 03/28/21 05/22/21 Sodium Bicarbonate Tab 650 mg PO DAILY@1700 03/28/21 05/22/21 Apixaban [Eliquis] 2.5 mg PO BID@0900,1700 05/16/21 05/22/21 Cholecalciferol (Vitamin D3) 125 mcg PO DAILY@1700 05/16/21 05/22/21 [Vitamin D3 (125 MCG = 5,000 IU)] Omalizumab [Xolair] 300 mg SQ Q28D 05/16/21 05/22/21 Pantoprazole [Protonix] 40 mg PO DAILY 05/16/21 05/22/21 Tamsulosin [Flomax] 0.4 mg PO DAILY@1400 05/16/21 05/22/21 amLODIPine [Norvasc] 5 mg PO BID@0900,1400 05/16/21 05/22/21 Previous Rx's Medication Instructions Recorded Acetaminophen-Codeine 300-30mg 1 tab PO Q6HR PRN #12 tab 05/26/21 [Tylenol w/codeine #3] Cefuroxime [Ceftin] 250 mg PO BID 7 Days #20 tab 05/26/21 INSULIN ASPART (NovoLOG) [NovoLOG 0 unit SQ ACHS ml 05/26/21 (formulary)] Insulin Detemir (Levemir) [Levemir] 8 unit SQ HS ml 05/26/21 Midodrine [ProAmatine] 5 mg PO AC-TID tab 05/26/21 Allergies Allergy/AdvReac Type Severity Reaction Status Date / Time levofloxacin [From Levaquin] Allergy Rash/Hives Verified 05/22/21 11:54 Sulfa (Sulfonamide Allergy Rash/Hives Verified 05/22/21 11:54 Antibiotics) Review of Systems ROS Statement: Those systems with pertinent positive or pertinent negative responses have been documented in the HPI. ROS Other: All systems not noted in ROS Statement are negative. Past Medical History Past Medical History: COPD, Diabetes Mellitus, Dialysis, Hypertension, Prostate Disorder, Renal Disease, Sleep Apnea/CPAP/BIPAP, Syncope Additional Past Medical History / Comment(s): BPH, uses CPAP, Peritoneal dialysis History of Any Multi-Drug Resistant Organisms: None Reported Past Surgical History: Cholecystectomy, Heart Catheterization, Hernia Repair, Orthopedic Surgery, Pacemaker Additional Past Surgical History / Comment(s): L AV fistula placed on 05/29/2016 [facility], right shoulder proximal humerus repair Past Anesthesia/Blood Transfusion Reactions: No Reported Reaction Type of Cardiac Device: Permanent Pacemaker Device Placement Date:: 05/10/2018 Past Psychological History: Depression Smoking Status: Former smoker Past Alcohol Use History: None Reported Past Drug Use History: None Reported - Past Family History Father History Unknown: Yes Family Medical History: Diabetes Mellitus, Myocardial Infarction ([place]) Additional Family Medical History / Comment(s): at 76 Mother History Unknown: Yes Family Medical History: Congestive Heart Failure (CHF), Diabetes Mellitus Additional Family Medical History / Comment(s): lived to be 97 Brother(s) History Unknown: Yes Family Medical History: COPD, Liver Disease Daughter(s) History Unknown: Yes General Exam Limitations: no limitations, altered mental status General appearance: alert, in no apparent distress (History of dementia) Head exam: Present: atraumatic, normocephalic, normal inspection Eye exam: Present: normal appearance, EOMI. Absent: scleral icterus, conjunctiv al injection, nystagmus, periorbital swelling, periorbital tenderness ENT exam: Present: normal exam, normal oropharynx, mucous membranes moist Neck exam: Present: normal inspection, full ROM. Absent: tenderness, meningismus, lymphadenopathy, thyromegaly Respiratory exam: Present: rales (bases). Absent: chest wall tenderness, accessory muscle use Cardiovascular Exam: Present: regular rate, normal rhythm. Absent: rubs, gallop, clicks GI/Abdominal exam: Present: soft. Absent: tenderness, guarding, rebound, rigid Extremities exam: Present: normal capillary refill. Absent: pedal edema, calf tenderness Back exam: Present: normal inspection. Absent: tenderness, CVA tenderness (R), CVA tenderness (L), rash noted Neurological exam: Present: alert Psychiatric exam: Present: normal affect, normal mood Skin exam: Present: warm, dry, normal color, other (Bruising to his right forearm, fistula left upper arm with bruit, pressure ulcer to 4th left toe lateral aspect, dried scaled lesion to right dorsal foot; CAPD catheter left abd wall ). Absent: rash Course Vital Signs 05/28/21 05/28/21 20:33 22:37 Temperature 99.0 F Pulse Rate 66 72 Respiratory 18 18 Rate Blood Pressure 137/66 166/74 O2 Sat by Pulse 95 93 L Oximetry Medical Decision Making - Medical Decision Making 76-year-old gentleman, alert to person only, presents to the emergency room from [facility] for bleeding episode possibly urinary. Patient denies any pain. He does have a history of encephalopathy, dementia, peritoneal dialysis/hemodialysis, atrial fibrillation and is on eliquis, bed-aeqdmet-jhioeglnc diabetes, hypertension, and BPH. He was just discharged from the hospital 2 days ago. His abdomen is soft and nontender. Hemoglobin and hematocrit are stable at 10.4 and 31.2 respectively. There is no evidence of leukocytosis. Sodium level is 120, down from discharge on the when it was 128. There is evidence of gross hematuria. Occult blood stool is negative. He will be admitted to the hospital for hyponatremia, gross hematuria which seems to be chronic, and renal dialysis. Consults to urology and nephrology requested by Dr. Stewart. Is discussed with Dr Powell - Lab Data Result diagrams: 05/28/21 21:15 05/28/21 21:15 Lab Results 05/28/21 05/28/21 05/28/21 Range/Units 21:15 21:15 21:15 WBC 7.9 (3.8-10.6) k/uL RBC 3.23 L (4.30-5.90) m/uL Hgb 10.4 L (13.0-17.5) gm/dL Hct 31.2 L (39.0-53.0) % MCV 96.6 (80.0-100.0) fL MCH 32.2 (25.0-35.0) pg MCHC 33.4 (31.0-37.0) g/dL RDW 14.1 (11.5-15.5) % Plt Count 259 (150-450) k/uL MPV 8.5 Neutrophils % 74 % Lymphocytes % 11 % Monocytes % 8 % Eosinophils % 6 % Basophils % 1 % Neutrophils # 5.9 (1.3-7.7) k/uL Lymphocytes # 0.8 L (1.0-4.8) k/uL Monocytes # 0.6 (0-1.0) k/uL Eosinophils # 0.4 (0-0.7) k/uL Basophils # 0.1 (0-0.2) k/uL APTT 29.6 (22.0-30.0) sec Sodium (137-145) mmol/L Potassium (3.5-5.1) mmol/L Chloride (98-107) mmol/L Carbon Dioxide (22-30) mmol/L Anion Gap mmol/L BUN (9-20) mg/dL Creatinine (0.66-1.25) mg/dL Est GFR (CKD-EPI)AfAm (>60 ml/min/1.73 sqM) Est GFR (CKD-EPI)NonAf (>60 ml/min/1.73 sqM) Glucose (74-99) mg/dL Calcium (8.4-10.2) mg/dL Total Bilirubin (0.2-1.3) mg/dL AST (17-59) U/L ALT (4-49) U/L Alkaline Phosphatase (38-126) U/L Total Protein (6.3-8.2) g/dL Albumin (3.5-5.0) g/dL Urine Color Red Urine Appearance Bloody (Clear) Urine RBC >182 H (0-5) /hpf Urine WBC 126 H (0-5) /hpf Stool Occult Blood (Negative) 05/28/21 05/28/21 Range/Units 21:15 22:00 WBC (3.8-10.6) k/uL RBC (4.30-5.90) m/uL Hgb (13.0-17.5) gm/dL Hct (39.0-53.0) % MCV (80.0-100.0) fL MCH (25.0-35.0) pg MCHC (31.0-37.0) g/dL RDW (11.5-15.5) % Plt Count (150-450) k/uL MPV Neutrophils % % Lymphocytes % % Monocytes % % Eosinophils % % Basophils % % Neutrophils # (1.3-7.7) k/uL Lymphocytes # (1.0-4.8) k/uL Monocytes # (0-1.0) k/uL Eosinophils # (0-0.7) k/uL Basophils # (0-0.2) k/uL APTT (22.0-30.0) sec Sodium 120 L (137-145) mmol/L Potassium 4.9 (3.5-5.1) mmol/L Chloride 85 L (98-107) mmol/L Carbon Dioxide 27 (22-30) mmol/L Anion Gap 8 mmol/L BUN 38 H (9-20) mg/dL Creatinine 7.93 H* (0.66-1.25) mg/dL Est GFR (CKD-EPI)AfAm 7 (>60 ml/min/1.73 sqM) Est GFR (CKD-EPI)NonAf 6 (>60 ml/min/1.73 sqM) Glucose 119 H (74-99) mg/dL Calcium 9.6 (8.4-10.2) mg/dL Total Bilirubin 1.1 (0.2-1.3) mg/dL AST 50 (17-59) U/L ALT 18 (4-49) U/L Alkaline Phosphatase 241 H (38-126) U/L Total Protein 5.8 L (6.3-8.2) g/dL Albumin 2.6 L (3.5-5.0) g/dL Urine Color Urine Appearance (Clear) Urine RBC (0-5) /hpf Urine WBC (0-5) /hpf Stool Occult Blood Negative (Negative) Disposition Clinical Impression: Hyponatremia, Hematuria Disposition: ADMITTED IP TO THIS [facility] Referrals: Kiel Wang DO [Primary Care Provider] - 1-2 days Decision Date: 05/28/21 Decision Time: 22:38
[2021-05-28 21:29] LABS: Color,Urine Red
[2021-05-28 21:30] LABS: Appearance,Urine Bloody (Clear)
[2021-05-28 21:33] LABS: RBC,Urine >182 /hpf (0-5); WBC,Urine 126 /hpf (0-5)
[2021-05-28 21:40] LABS: Basophils # (A) 0.1 k/uL (0-0.2); Basophils % (A) 1 %; Eosinophils # (A) 0.4 k/uL (0-0.7); Eosinophils % (A) 6 %; HCT 31.2 % (39.0-53.0); HGB 10.4 gm/dL (13.0-17.5); Lymphocytes # (A) 0.8 k/uL (1.0-4.8); Lymphocytes % (A) 11 %; MCH 32.2 pg (25.0-35.0); MCHC 33.4 g/dL (31.0-37.0); MCV 96.6 fL (80.0-100.0); Mean Platelet Volume 8.5; Monocytes # (A) 0.6 k/uL (0-1.0); Monocytes % (A) 8 %; Neutrophils # (A) 5.9 k/uL (1.3-7.7); Neutrophils % (A) 74 %; Platelet Count 259 k/uL (150-450); RBC 3.23 m/uL (4.30-5.90); RDW 14.1 % (11.5-15.5); WBC 7.9 k/uL (3.8-10.6)
[2021-05-28 21:46] LABS: Calcium 9.6 mg/dL (8.4-10.2); Total Bilirubin 1.1 mg/dL (0.2-1.3)
[2021-05-28 22:05] LABS: Albumin 2.6 g/dL (3.5-5.0); Potassium 4.9 mmol/L (3.5-5.1); Total Protein 5.8 g/dL (6.3-8.2)
[2021-05-28] MEDS ORDERED: NALOXONE 0.4 MG/ML 1 ML VIAL IV PRN (22:38)
[2021-05-28] MEDS ORDERED: Acetaminophen-Codeine 300-30mg TAB PO PRN (23:55)
[2021-05-29] MEDS: PANTOPRAZOLE 40 MG TABLET PO SCH (06:06)
[2021-05-29] MEDS ORDERED: CEFDINIR 300 MG CAP PO SCH (09:00)
[2021-05-29] MEDS ORDERED: MAGNESIUM HYDROXIDE 2,400 MG/10 ML CUP PO PRN (09:00)
[2021-05-29] MEDS: CALCIUM ACETATE 667 MG TAB PO SCH ×3 (09:13→21:38)
[2021-05-29] MEDS: FOLIC ACID-VIT B COMPLEX-VIT C 1 CAP PO SCH (09:14)
[2021-05-29] MEDS: CINACALCET 30 MG TAB PO SCH (09:14)
[2021-05-29] MEDS: DULoxetine HCL 60 MG CAPSULE.DR PO SCH (09:15)
[2021-05-29] MEDS: APIXABAN 2.5 MG TABLET PO SCH ×2 (09:16→21:45)
[2021-05-29] MEDS: MIDODRINE 5 MG TAB PO SCH ×3 (09:16→21:39)
[2021-05-29] MEDS: amLODIPine 5 MG TAB PO SCH ×2 (09:16→13:42)
[2021-05-29 12:11] LABS: Glucose,Whole Blood 178 mg/dL (75-99)
[2021-05-29] MEDS ORDERED: NA PHOS,M-B/NA PHOS,DI-BA 133 ML ENEMA RECTAL PRN (12:35)
[2021-05-29] MEDS ORDERED: bisacodyL 10 MG SUPP RECTAL PRN (12:35)
--- NOTE | 2021-05-29 13:17 | US ---
EXAMINATION TYPE: US renals and bladder DATE OF EXAM: 05/29/2021 COMPARISON: NONE CLINICAL HISTORY: hematuria. DM, Renal failure EXAM MEASUREMENTS: Right Kidney: 10.2 x 5.4 x 4.7 cm Left Kidney: 8.7 x 5.2 x 4.3 cm Right Kidney: No hydronephrosis or masses seen Left Kidney: Obscured by overlying bowel gas Bladder: Not distended, Hypoechoic mass seen within Bilateral Jets seen: No Limited exam due to bowel gas, ascites seen in RUQ and LUQ, Hypoechoic mass seen in bladder with vasc ularity measuring 5.2 x 3.1 x 4.3 cm possible prostate seen on prior CT exam IMPRESSION: 1. There is a 5.2 cm mass likely within the bladder correlate clinically..
[2021-05-29 13:26] LABS: Basophils # (A) 0.1 k/uL (0-0.2); Basophils % (A) 1 %; Eosinophils # (A) 0.3 k/uL (0-0.7); Eosinophils % (A) 4 %; HCT 32.6 % (39.0-53.0); HGB 10.7 gm/dL (13.0-17.5); Lymphocytes # (A) 0.6 k/uL (1.0-4.8); Lymphocytes % (A) 8 %; MCH 32.4 pg (25.0-35.0); MCHC 32.8 g/dL (31.0-37.0); MCV 98.9 fL (80.0-100.0); Mean Platelet Volume 8.3; Monocytes # (A) 0.5 k/uL (0-1.0); Monocytes % (A) 7 %; Neutrophils # (A) 6.3 k/uL (1.3-7.7); Neutrophils % (A) 80 %; Platelet Count 268 k/uL (150-450); RBC 3.29 m/uL (4.30-5.90)
--- NOTE | 2021-05-29 13:38 | CONS ---
CONSULTATION REASON FOR CONSULT: End-stage renal disease. HISTORY OF PRESENT ILLNESS: Patient is a 76-year-old male with end-stage renal disease, on hemodialysis, currently because he is in rehab. Patient was maintained on peritoneal dialysis and switched to hemodialysis because he is currently at [facility]. He does have his PD catheter and is maintained on a Saturday, , Saturday schedule for hemodialysis. The patient was admitted to the hospital as he was noticed to have blood on his sheets. It appears that it is in the urine. No other bleeding is noted at this time. The patient has also been confused. He was noted to have a sodium of 120. He has not missed any dialysis treatments. PAST MEDICAL HISTORY: End-stage renal disease, CKD mineral bone disorder, generalized debility, multiple episodes of confusion, history of UTI recently, BPH, type 2 diabetes, hypertension, CKD mineral bone disorder. PAST SURGICAL HISTORY: Cholecystectomy, cardiac catheterization, hernia repair, PD catheter placement, AV fistula, right shoulder surgery. SOCIAL HISTORY: Patient is a former smoker. No history of drug abuse or alcohol abuse. MEDICATIONS: Medications prior to admission are multiple, please see list. ALLERGIES: INCLUDE LEVAQUIN AND SULFA CAUSES RASH AND HIVES. REVIEW OF SYSTEMS: As per HPI. PHYSICAL EXAMINATION: Patient is comfortable, awake. He is not in any acute distress. Blood pressure 163/68, heart rate 70 per minute. He is afebrile. Examination of the HEART S1, S2. Examination of the LUNGS, decreased breath sounds at the bases. ABDOMEN is soft, nontender. Examination of lower EXTREMITIES shows trace edema bilaterally. 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 Patient is confused but moving all 4 extremities. LABS: Show sodium 120 yesterday. No labs available from today. Hemoglobin 10.4 g/dL. ASSESSMENT: 1. End-stage renal disease, on hemodialysis on a Saturday, , Saturday schedule. We will arrange for hemodialysis in a.m. 2. Hyponatremia, mostly hypervolemic. Expect improvement post dialysis. Check sodium today. 3. Hypertension, partly volume sensitive. Expect improvement post dialysis tomorrow. If his sodium is lower, we will dialyze him today for a short period of time. 4. Hematuria with recent urinary tract infection. The patient does not have much urine output. Consider urology evaluation if he has significant hematuria. The patient did have a CT of the abdomen in November, which did not show any abnormal findings in the bladder or in the kidney. He did have an enlarged prostate. PLAN: Hemodialysis tomorrow. If the serum sodium is lower today, we will dialyze the patient today as well. LESLIE / JOHNATHAN: [id number] /
[2021-05-29] MEDS: TAMSULOSIN 0.4 MG CAP.ER.24H PO SCH (13:42)
[2021-05-29 14:07] LABS: ALT 18 U/L (4-49); AST 35 U/L (17-59); African American GFR (CKD) 6 (>60 ml/min/1.73 sqM); Albumin 2.6 g/dL (3.5-5.0); Albumin/Globulin Ratio 0.8; Alkaline Phosphatase 264 U/L (38-126); Anion Gap 9 mmol/L; Blood Urea Nitrogen 40 mg/dL (9-20); Calcium 9.5 mg/dL (8.4-10.2); Carbon Dioxide 25 mmol/L (22-30); Chloride 85 mmol/L (98-107); Creatine Kinase 58 U/L (55-170); Globulin 3.1 g/dL; Glucose 187 mg/dL (74-99); Non-African American GFR(CKD) 6 (>60 ml/min/1.73 sqM); Potassium 4.9 mmol/L (3.5-5.1); Total Bilirubin 1.1 mg/dL (0.2-1.3); Total Protein 5.7 g/dL (6.3-8.2)
[2021-05-29 14:20] LABS: Sodium 119 mmol/L (137-145)
--- NOTE | 2021-05-29 16:09 | P.HPIM ---
History of Present Illness H&P Date: 05/29/21 HISTORY OF PRESENT ILLNESS This is a 76-year-old patient of Dr. Wang with a past medical history significant for COPD, diabetes mellitus2, end stage renal disease on CAPD, hypertension, chronic atrial fibrillation, sick sinus syndrome status post single-chamber permanent pacemaker, BPH, hyperlipidemia, gastroesophageal reflux disease, recurrent depression, vitamin D deficiency, obstructive sleep apnea. Patient has had several hospitalizations that she air and recently was at [facility] for subacute rehab. Patient was recently admitted to the hospital from 05/23-05/26 for acute change in mental status, decreased appetite and change in blood pressure. Patient was transitioned from peritoneal dialysis to hemodialysis. And was discharged to [facility]. Patient had a Vincent catheter to check for UTI patient was brought back from [facility] due to bloody stains off his diaper and predominant hematuria at the facility. Patient was noted to have blood on her sheet multiple times at the facility since there was a concern about penile injury patient was sent to the hospital. In the ER patient was noted to be afebrile pulse 66 respiratory rate 18 blood pressure 137/66. Labs were reviewed patient has a leukocytosis and 0.9 hemoglobin 10.4 hematocrit 31.2 sodium 120 chloride 85 bicarb 27 BUN 38 creatinine 7.93. Hyponatremia is likely secondary to hypovolemia. Nephrology is consulted for evaluation. Urology was consulted for hematuria. Review of SYSTEMS Constitutional: No fever, no chills, no night sweats. No weight change. Reports weakness, reports fatigue reports lethargy. Reports daytime sleepiness. EENT: No headache. No blurred vision or double vision, no loss of vision. No loss of Hearing, no ringing in the ears, no dizziness. No nasal drainage or congestion. No epistaxis. No sore throat. Lungs: No shortness of breath, cough, no sputum production. No wheezing. Cardiovascular: No chest pain, no lower extremity edema. No palpitations. No paroxysmal nocturnal dyspnea. No orthopnea. No lightheadedness or dizziness. No syncopal episodes. Abdominal: No abdominal pain. No nausea, vomiting. No diarrhea. No constipation. No bloody or tarry stools.. No loss of appetite. CAPD. Genitourinary: No dysuria, no frequency, urgency. No urinary retention. Patient makes very little urine, no bloody tinge of the urine Musculoskeletal: No myalgias. Reports muscle weakness, reports gait dysfunction, reports frequent falls. Reports back pain. No neck pain. Integumentary: Reports abrasions and ecchymosis, no lesions. No rash or pruritus. No unusual bruising. No change in hair or nails. Neurologic: No aphasia. No facial droop. Reported change in mentation. No head injury. No headache. No paralysis. No paresthesia. Psychiatric: No depression. No anxiety. No mood swings. Endocrine: Noted abnormal blood sugars. No weight change. No excessive sweating or thirst. No cold intolerance. SOCIAL HISTORY Patient was smoked from age 17 and quit in 2018 he has smoked one pack a day. Patient denies alcohol marijuana or illicit drug use. He lives at home with his . 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 Patient performs CAPD at home. Utilizes a walker. FAMILY HISTORY Patient has 1 brother that from cirrhosis of the liver and one with history of hypertension and heart disease. PHYSICAL EXAMINATION Gen: This is a 76-year-old obese male. He is resting on stretcher and appears to be comfortable and in no acute distress. Patient's is at bedside. HEENT: Head is atraumatic, normocephalic. Pupils equal, round. Sclerae is anicteric. NECK: Supple. No JVD. No lymphadenopathy. No thyromegaly. LUNGS: Clear to auscultation. No wheezes or rhonchi. No intercostal retractions. HEART: Regular rate and rhythm. Systolic murmur. ABDOMEN: Soft. Bowel sounds are present. No masses. No tenderness. PD catheter Genitourinary : Denies duct with drainage EXTREMITIES: No pedal edema. No calf tenderness. Multiple areas of ecchymosis on extremities. NEUROLOGICAL: Patient is awake, alert and oriented x3. Cranial nerves 2 through 12 are grossly intact. ASSESSMENT AND PLAN Hyponatremia likely secondary to hypervolemia - Nephrology consulted -Repeat CMP -Hold IV fluids -Renal ultrasound ordered Bright red blood per penile duct with hematuria -Urology consult -Rule out penile injury Metabolic encephalopathy secondary to hypoglycemia, improved -Patient placed on insulin scale only for now. Severe generalized weakness, fatigue possibly related to multiple comorbidities. -PT and OT consults. - discharged to [facility] once stable End-stage renal disease on CAPD. Has a peritoneal dialysis -Consult with nephrology. -Continue sodium bicarb 650 mg daily L1 transverse vertebral fracture. -Patient to be maintained on back brace while out of bed. Chronic atrial fibrillation. - Continue eliquis, Lopressor 25 mg as directedPulse rate has been well controlled. Diabetes mellitus type II, insulin requiring uncontrolled with hypoglycemia. S1 scale only for now. COPD. Continue Singulair 10 mg by mouth at bedtime Hypertension, stable. Continue Lopressor as needed. Autonomic hypotension secondary to diabetes. Patient started on midodrine 5 mg 3 times daily. BPH. Continue Flomax 0.4 mg Obstructive sleep apnea. Continue CPAP. Hyperlipidemia. Atorvastatin 40 mg Chronic kidney disease mineral bone disorder. Continue PhosLo 1334 mg 3 times daily. Sick sinus syndrome status post single-chamber permanent pacemaker. Recurrent depression. Continue Cymbalta 60 mg daily, Seroquel 25 mg at bedtime, trazodone 50 mg at bedtime. Dementia. Continue Aricept 5 mg at bedtime. Gastroesophageal reflux disease and GI prophylaxis. Protonix. DVT prophylaxis. Eliquis. Status: Full code Patient will be admitted to the hospital for a minimum of 2 night stay. DISCHARGE PLAN TBD. Consult with PT and OT. Past Medical History Past Medical History: COPD, Diabetes Mellitus, Dialysis, Hypertension, Prostate Disorder, Renal Disease, Sleep Apnea/CPAP/BIPAP, Syncope Additional Past Medical History / Comment(s): BPH, uses CPAP, Peritoneal dialysis History of Any Multi-Drug Resistant Organisms: None Reported Past Surgical History: Cholecystectomy, Heart Catheterization, Hernia Repair, Orthopedic Surgery, Pacemaker Additional Past Surgical History / Comment(s): L AV fistula placed on 05/29/2016 [facility], right shoulder proximal humerus repair Past Anesthesia/Blood Transfusion Reactions: No Reported Reaction Type of Cardiac Device: Permanent Pacemaker Device Placement Date:: 05/10/2018 Past Psychological History: Depression Additional Psychological History / Comment(s): Pt resides with his spouse. Spouse is his DPOA and housekeeper child care. Pt has recently been to [facility] for rehab. [facility] had just contacted spouse to set up home care. Pt recently has been nonambulatory, prior to this he was up with a walker. He has a wheelchair/nebulizer and glucometer. He is on an insulin pump. Smoking Status: Former smoker Past Alcohol Use History: None Reported Additional Past Alcohol Use History / Comment(s): STARTED SMOKING AT AGE 17, QUIT 2019, SMOKED 1PPD Past Drug Use History: None Reported - Past Family History Father History Unknown: Yes Family Medical History: Diabetes Mellitus, Myocardial Infarction (PA) Additional Family Medical History / Comment(s): at 76 Mother History Unknown: Yes Family Medical History: Congestive Heart Failure (CHF), Diabetes Mellitus Additional Family Medical History / Comment(s): lived to be 97 Brother(s) History Unknown: Yes Family Medical History: COPD, Liver Disease Daughter(s) History Unknown: Yes Medications and Allergies Home Medications Medication Instructions Recorded Confirmed Type Maureen-Chris 1 tab PO DAILY@1700 06/17/18 05/28/21 History Atorvastatin Calcium [Lipitor] 40 mg PO HS@2100 02/16/20 05/28/21 History QUEtiapine FUMARATE [SEROquel] 25 mg PO DAILY@1700 02/16/20 05/28/21 History Nicotine Polacrilex [Nicorette] 2 mg BUCCAL Q2H PRN 02/19/20 05/28/21 History Calcium Acetate [PhosLo] 1,334 mg PO TID@0800,1200,1700 11/26/20 05/28/21 History Cinacalcet HCl [Sensipar] 90 mg PO MOWEFR@0800 11/26/20 05/28/21 History DULoxetine HCL [Cymbalta] 60 mg PO DAILY@0800 11/26/20 05/28/21 History Montelukast [Singulair] 10 mg PO HS@1700 03/28/21 05/28/21 History Sodium Bicarbonate Tab 650 mg PO DAILY@1700 03/28/21 05/28/21 History Apixaban [Eliquis] 2.5 mg PO BID@0900,1700 05/16/21 05/28/21 History Cholecalciferol (Vitamin D3) 125 mcg PO DAILY@1700 05/16/21 05/28/21 History [Vitamin D3 (125 MCG = 5,000 IU)] Omalizumab [Xolair] 300 mg SQ Q28D 05/16/21 05/28/21 History Pantoprazole [Protonix] 40 mg PO DAILY@0600 05/16/21 05/28/21 History Tamsulosin [Flomax] 0.4 mg PO DAILY@1400 05/16/21 05/28/21 History amLODIPine [Norvasc] 5 mg PO BID@0900,1400 05/16/21 05/28/21 History Acetaminophen-Codeine 300-30mg 1 tab PO Q6HR PRN 05/28/21 05/28/21 History [Tylenol w/codeine #3] Cefuroxime [Ceftin] 250 mg PO BID@0800,1700 05/28/21 05/28/21 History INSULIN ASPART (NovoLOG) [NovoLOG See Protocol SQ 05/28/21 05/28/21 History (formulary)] ACHS@07,11,1630,2130 Insulin Detemir (Levemir) [Levemir] 8 unit SQ HS@212905/28/21 05/28/21 History Magnesium Hydroxide [Milk of 7,200 mg PO Q48H PRN 05/28/21 05/28/21 History Magnesia Concentrate] Midodrine [ProAmatine] 5 mg PO TID@0800,1200,1700 05/28/21 05/28/21 History Na Phos,M-B/Na Phos,Di-Ba [Fleet 133 ml RECTAL DAILY PRN 05/28/21 05/28/21 History Adult] bisacodyL [Dulcolax] 10 mg RECTAL Q24H PRN 05/28/21 05/28/21 History Allergies Allergy/AdvReac Type Severity Reaction Status Date / Time levofloxacin [From Levaquin] Allergy Rash/Hives Verified 05/28/21 23:09 Sulfa (Sulfonamide Allergy Rash/Hives Verified 05/28/21 23:09 Antibiotics) Physical Exam Vitals: Vital Signs Temp Pulse Pulse Pulse Resp BP BP 05/29/21 12:36 70 163/68 05/29/21 11:59 98.3 F 64 19 149/64 05/29/21 09:23 65 180/73 05/29/21 08:00 65 18 05/29/21 04:59 97.6 F 65 18 162/73 05/29/21 02:50 60 18 05/29/21 02:35 97.6 F 64 18 159/81 05/29/21 01:42 67 18 156/74 05/29/21 00:40 57 L 18 164/69 05/28/21 22:37 72 18 166/74 05/28/21 20:33 99.0 F 66 18 137/66 Pulse Ox 05/29/21 12:36 05/29/21 11:59 95 05/29/21 09:23 05/29/21 08:00 05/29/21 04:59 99 05/29/21 02:50 05/29/21 02:35 98 05/29/21 01:42 94 L 05/29/21 00:40 95 05/28/21 22:37 93 L 05/28/21 20:33 95 Intake and Output 05/29/21 05/29/21 05/29/21 06:59 14:59 22:59 Other: Voiding Method Diaper Diaper Incontinent Incontinent Weight 102.512 kg Results CBC & Chem 7: 05/29/21 12:36 05/29/21 12:34 Labs: Abnormal Lab Results - Last 24 Hours (Table) 05/28/21 05/28/21 05/28/21 Range/Units 21:15 21:15 21:15 RBC 3.23 L (4.30-5.90) m/uL Hgb 10.4 L (13.0-17.5) gm/dL Hct 31.2 L (39.0-53.0) % Lymphocytes # 0.8 L (1.0-4.8) k/uL Sodium 120 L (137-145) mmol/L Chloride 85 L (98-107) mmol/L BUN 38 H (9-20) mg/dL Creatinine 7.93 H* (0.66-1.25) mg/dL Glucose 119 H (74-99) mg/dL POC Glucose (mg/dL) (75-99) mg/dL Alkaline Phosphatase 241 H (38-126) U/L Total Protein 5.8 L (6.3-8.2) g/dL Albumin 2.6 L (3.5-5.0) g/dL Urine RBC >182 H (0-5) /hpf Urine WBC 126 H (0-5) /hpf 05/29/21 05/29/21 05/29/21 Range/Units 12:09 12:34 12:36 RBC 3.29 L (4.30-5.90) m/uL Hgb 10.7 L (13.0-17.5) gm/dL Hct 32.6 L (39.0-53.0) % Lymphocytes # 0.6 L (1.0-4.8) k/uL Sodium 119 L* (137-145) mmol/L Chloride 85 L (98-107) mmol/L BUN 40 H (9-20) mg/dL Creatinine 8.39 H* (0.66-1.25) mg/dL Glucose 187 H (74-99) mg/dL POC Glucose (mg/dL) 178 H (75-99) mg/dL Alkaline Phosphatase 264 H (38-126) U/L Total Protein 5.7 L (6.3-8.2) g/dL Albumin 2.6 L (3.5-5.0) g/dL Urine RBC (0-5) /hpf Urine WBC (0-5) /hpf Microbiology - Last 24 Hours (Table) 05/28/21 21:15 Urine Culture - Preliminary Urine,Voided Thrombosis Risk Factor Assmnt - Choose All That Apply Each Factor Represents 1 point: Obesity (BMI >25) Other Risk Factors: Yes Each Risk Factor Represents 3 Points: Age 75 years or older Other congenital or acquired thrombophilia - If yes, enter type in comment: No Thrombosis Risk Factor Assessment Total Risk Factor Score: 4 Thrombosis Risk Factor Assessment Level: Moderate Risk
[2021-05-29 17:46] LABS: Glucose,Whole Blood 170 mg/dL (75-99)
[2021-05-29] MEDS: INSULIN ASPART (NovoLOG) 100 UNIT/ML VIAL SQ SCH ×2 (17:54→21:46)
[2021-05-29 20:37] LABS: Glucose,Whole Blood 157 mg/dL (75-99)
[2021-05-29] MEDS ORDERED: INSULIN DETEMIR (LEVEMIR) 100 UNIT/ML SYR SQ SCH (21:30)
[2021-05-29] MEDS: QUEtiapine 25 MG TAB PO SCH (21:44)
[2021-05-29] MEDS: SODIUM BICARBONATE TAB 650 MG TAB PO SCH (21:44)
[2021-05-29] MEDS: CHOLECALCIFEROL 25 MCG (1000 IU) TABLET PO SCH (21:45)
[2021-05-29] MEDS: MONTELUKAST 10 MG TAB PO SCH (21:45)
[2021-05-29] MEDS: ATORVASTATIN 40 MG TAB PO SCH (21:45)
[2021-05-30 07:34] LABS: Glucose,Whole Blood 59 mg/dL (75-99)
[2021-05-30 07:54] LABS: Glucose,Whole Blood 118 mg/dL (75-99)
[2021-05-30] MEDS: INSULIN ASPART (NovoLOG) 100 UNIT/ML VIAL SQ SCH ×4 (08:55→20:55)
[2021-05-30] MEDS: MIDODRINE 5 MG TAB PO SCH ×3 (08:59→17:23)
[2021-05-30] MEDS: PANTOPRAZOLE 40 MG TABLET PO SCH (08:59)
[2021-05-30] MEDS: CALCIUM ACETATE 667 MG TAB PO SCH ×3 (08:59→17:22)
[2021-05-30 10:06] LABS: Basophils # (A) 0.1 k/uL (0-0.2); Basophils % (A) 1 %; Eosinophils # (A) 0.3 k/uL (0-0.7); Eosinophils % (A) 4 %; HCT 30.6 % (39.0-53.0); HGB 10.1 gm/dL (13.0-17.5); Lymphocytes # (A) 0.6 k/uL (1.0-4.8); Lymphocytes % (A) 9 %; MCHC 32.9 g/dL (31.0-37.0); MCV 97.2 fL (80.0-100.0); Mean Platelet Volume 8.8; Monocytes # (A) 0.5 k/uL (0-1.0); Monocytes % (A) 8 %; Neutrophils # (A) 5.4 k/uL (1.3-7.7); Neutrophils % (A) 77 %; Platelet Count 248 k/uL (150-450); RBC 3.15 m/uL (4.30-5.90); RDW 14.1 % (11.5-15.5); WBC 7.1 k/uL (3.8-10.6)
[2021-05-30 10:11] LABS: African American GFR (CKD) 8 (>60 ml/min/1.73 sqM); Anion Gap 7 mmol/L; Blood Urea Nitrogen 29 mg/dL (9-20); Calcium 9.3 mg/dL (8.4-10.2); Carbon Dioxide 29 mmol/L (22-30); Chloride 93 mmol/L (98-107); Glucose 85 mg/dL (74-99); Non-African American GFR(CKD) 7 (>60 ml/min/1.73 sqM); Potassium 4.2 mmol/L (3.5-5.1); Sodium 129 mmol/L (137-145)
[2021-05-30] MEDS: APIXABAN 2.5 MG TABLET PO SCH ×2 (11:28→17:22)
[2021-05-30] MEDS: amLODIPine 5 MG TAB PO SCH ×2 (11:29→14:51)
[2021-05-30] MEDS: DULoxetine HCL 60 MG CAPSULE.DR PO SCH (11:29)
[2021-05-30] MEDS: CEFDINIR 300 MG CAP PO SCH (11:31)
[2021-05-30 12:03] LABS: Glucose,Whole Blood 68 mg/dL (75-99)
[2021-05-30 12:20] LABS: Glucose,Whole Blood 95 mg/dL (75-99)
[2021-05-30] MEDS: TAMSULOSIN 0.4 MG CAP.ER.24H PO SCH (14:51)
--- NOTE | 2021-05-30 15:21 | P.PN ---
Subjective Progress Note Date: 05/30/21 HISTORY OF PRESENT ILLNESS This is a 76-year-old patient of Dr. Wang with a past medical history significant for COPD, diabetes mellitus2, end stage renal disease on CAPD, hyp ertension, chronic atrial fibrillation, sick sinus syndrome status post single- chamber permanent pacemaker, BPH, hyperlipidemia, gastroesophageal reflux disease, recurrent depression, vitamin D deficiency, obstructive sleep apnea. Patient has had several hospitalizations that she air and recently was at [facility] for subacute rehab. Patient was recently admitted to the hospital from 05/23-05/26 for acute change in mental status, decreased appetite and change in blood pressure. Patient was transitioned from peritoneal dialysis to hemodialysis. And was discharged to [facility]. Patient had a Vincent catheter to check for UTI patient was brought back from [facility] due to bloody stains off his diaper and predominant hematuria at the facility. Patient was noted to have bl ood on her sheet multiple times at the facility since there was a concern about penile injury patient was sent to the hospital. In the ER patient was noted to be afebrile pulse 66 respiratory rate 18 blood pressure 137/66. Labs were reviewed patient has a leukocytosis and 0.9 hemoglobin 10.4 hematocrit 31.2 sodium 120 chloride 85 bicarb 27 BUN 38 creatinine 7.93. Hyponatremia is likely secondary to hypovolemia. Nephrology is consulted for evaluation. Urology was consulted for hematuria. 05/30 patient examined bedside. He does have minimal bleeding spots on his d iaper but no significant bleeding since his hospitalization. On evaluation of his labs patient is noted to have multiple hypoglycemic events. hyponatremia has improved after dialysis to 129 Vitals otherwise stable afebrile pulse 78 respiratory rate 21 blood pressure 147/68. Renal ultrasound suggestive 5. 2 cm mass within the bladder. Urology evaluation pending. Lantus reduced to 5 units Review of SYSTEMS Constitutional: No fever, no chills, no night sweats. No weight change. Reports weakness, reports fatigue reports lethargy. Reports daytime sleepiness. EENT: No headache. No blurred vision or double vision, no loss of vision. No loss of Hearing, no ringing in the ears, no dizziness. No nasal drainage or congestion. No epistaxis. No sore throat. Lungs: No shortness of breath, cough, no sputum production. No wheezing. Cardiovascular: No chest pain, no lower extremity edema. No palpitations. No paroxysmal nocturnal dyspnea. No orthopnea. No lightheadedness or dizziness. No syncopal episodes. Abdominal: No abdominal pain. No nausea, vomiting. No diarrhea. No constipation. No bloody or tarry stools.. No loss of appetite. CAPD. Genitourinary: No dysuria, no frequency, urgency. No urinary retention. Patient makes very little urine, no bloody tinge of the urine Musculoskeletal: No myalgias. Reports muscle weakness, reports gait dysfu nction, reports frequent falls. Reports back pain. No neck pain. Integumentary: Reports abrasions and ecchymosis, no lesions. No rash or pruritus. No unusual bruising. No change in hair or nails. Neurologic: No aphasia. No facial droop. Reported change in mentation. No head injury. No headache. No paralysis. No paresthesia. Psychiatric: No depression. No anxiety. No mood swings. Endocrine: Noted abnormal blood sugars. No weight change. No excessive sweating or thirst. No cold intolerance. PHYSICAL EXAMINATION Gen: This is a 76-year-old obese male. He is resting on stretcher and appears to be comfortable and in no acute distress. Patient's is at bedside. HEENT: Head is atraumatic, normocephalic. Pupils equal, round. Sclerae is anicteric. NECK: Supple. No JVD. No lymphadenopathy. No thyromegaly. LUNGS: Clear to auscultation. No wheezes or rhonchi. No intercostal retractions. HEART: Regular rate and rhythm. Systolic murmur. ABDOMEN: Soft. Bowel sounds are present. No masses. No tenderness. PD catheter Genitourinary : Denies duct with drainage EXTREMITIES: No pedal edema. No calf tenderness. Multiple areas of ecchymosis on extremities. NEUROLOGICAL: Patient is awake, alert and oriented x3. Cranial nerves 2 through 12 are grossly intact. ASSESSMENT AND PLAN Hyponatremia likely secondary to hypervolemia - Nephrology consulted -Repeat CMP -Hold IV fluids -Renal ultrasound ordered Bright red blood per penile duct with hematuria -Urology consult -Rule out penile injury - renal ultrasound suggestive of 5.2 cm mass in the bladder Metabolic encephalopathy secondary to hypoglycemia, improved -Patient placed on insulin scale only for now. Severe generalized weakness, fatigue possibly related to multiple comorbidities. -PT and OT consults. - discharged to [facility] once stable End-stage renal disease on CAPD. Has a peritoneal dialysis -Consult with nephrology. -Continue sodium bicarb 650 mg daily L1 transverse vertebral fracture. -Patient to be maintained on back brace while out of bed. Chronic atrial fibrillation. - Continue eliquis, Lopressor 25 mg as directedPulse rate has been well controlled. Diabetes mellitus type II, insulin requiring uncontrolled with hypoglycemia. S1 scale only for now. COPD. Continue Singulair 10 mg by mouth at bedtime Hypertension, stable. Continue Lopressor as needed. Autonomic hypotension secondary to diabetes. Patient started on midodrine 5 mg 3 times daily. BPH. Continue Flomax 0.4 mg Obstructive sleep apnea. Continue CPAP. Hyperlipidemia. Atorvastatin 40 mg Chronic kidney disease mineral bone disorder. Continue PhosLo 1334 mg 3 times daily. Sick sinus syndrome status post single-chamber permanent pacemaker. Recurrent depression. Continue Cymbalta 60 mg daily, Seroquel 25 mg at bedtime, trazodone 50 mg at bedtime. Dementia. Continue Aricept 5 mg at bedtime. Gastroesophageal reflux disease and GI prophylaxis. Protonix. DVT prophylaxis. Eliquis. Status: Full code DISCHARGE PLAN discharge to [facility] when stable Objective - Vital Signs Vital signs: Vital Signs Temp 97.6 F 05/30/21 13:00 Pulse 78 05/30/21 13:00 Resp 21 05/30/21 13:00 BP 147/68 05/30/21 13:00 Pulse Ox 97 05/30/21 13:00 Intake & Output 05/29/21 05/30/21 05/30/21 18:59 06:59 18:59 Intake Total 200 Balance 200 Intake: Oral 200 Other: Voiding Method Diaper Diaper Incontinent Incontinent - Labs CBC & Chem 7: 05/30/21 10:05 05/30/21 10:02 Labs: Abnormal Lab Results - Last 24 Hours (Table) 05/29/21 05/29/21 05/30/21 Range/Units 17:44 20:35 07:26 RBC (4.30-5.90) m/uL Hgb (13.0-17.5) gm/dL Hct (39.0-53.0) % Lymphocytes # (1.0-4.8) k/uL Sodium (137-145) mmol/L Chloride (98-107) mmol/L BUN (9-20) mg/dL Creatinine (0.66-1.25) mg/dL POC Glucose (mg/dL) 170 H 157 H 59 L (75-99) mg/dL 05/30/21 05/30/21 05/30/21 Range/Units 07:50 10:02 10:05 RBC 3.15 L (4.30-5.90) m/uL Hgb 10.1 L (13.0-17.5) gm/dL Hct 30.6 L (39.0-53.0) % Lymphocytes # 0.6 L (1.0-4.8) k/uL Sodium 129 L (137-145) mmol/L Chloride 93 L (98-107) mmol/L BUN 29 H (9-20) mg/dL Creatinine 6.80 H (0.66-1.25) mg/dL POC Glucose (mg/dL) 118 H (75-99) mg/dL 05/30/21 Range/Units 11:59 RBC (4.30-5.90) m/uL Hgb (13.0-17.5) gm/dL Hct (39.0-53.0) % Lymphocytes # (1.0-4.8) k/uL Sodium (137-145) mmol/L Chloride (98-107) mmol/L BUN (9-20) mg/dL Creatinine (0.66-1.25) mg/dL POC Glucose (mg/dL) 68 L (75-99) mg/dL Microbiology - Last 24 Hours (Table) 05/28/21 21:15 Urine Culture - Final Urine,Voided
--- NOTE | 2021-05-30 16:12 | P.GSCN ---
History of Present Illness Consult date: 05/30/21 Reason for Consult: groos hematuria History of present illness: This is 76-year-old male with history of gross hematuria. He admitted to the hospital for gross hematuria and hyponatremia. He does have history of end- stage renal disease on peritoneal dialysis previously but, recently switched free dialysis. Underwent an ultrasound on presentation that showed a possible mass in the bladder vs an enlarged prostate . Of note the CT was reviewed from November of this year which showed he has a fairly large median lobe, and no evidence of any upper tract malignancy. He does make urine, but unsure of the amount. Denies voiding difficulty Review of Systems - Constitutional Denies fever, Denies weight loss - Cardiovascular Denies chest pain, Denies shortness of breath - Respiratory Denies cough, Denies 7 - Gastrointestinal Reports as per HPI - Genitourinary Reports hematuria - Neurological Denies headaches, Denies syncope Past Medical History Past Medical History: COPD, Diabetes Mellitus, Dialysis, Hypertension, Prostate Disorder, Renal Disease, Sleep Apnea/CPAP/BIPAP, Syncope Additional Past Medical History / Comment(s): BPH, uses CPAP, Peritoneal dialysis History of Any Multi-Drug Resistant Organisms: None Reported Past Surgical History: Cholecystectomy, Heart Catheterization, Hernia Repair, Orthopedic Surgery, Pacemaker Additional Past Surgical History / Comment(s): L AV fistula placed on 05/29/2016 [facility], right shoulder proximal humerus repair Past Anesthesia/Blood Transfusion Reactions: No Reported Reaction Type of Cardiac Device: Permanent Pacemaker Device Placement Date:: 05/10/2018 Past Psychological History: Depression Additional Psychological History / Comment(s): Pt resides with his spouse. Spouse is his DPOA and resident care provider. Pt has recently been to [facility] for rehab. [facility] had just contacted spouse to set up home care. Pt recently has been nonambulatory, prior to this he was up with a walker. He has a wheelchair/nebulizer and glucometer. He is on an insulin pump. Smoking Status: Former smoker Past Alcohol Use History: None Reported Additional Past Alcohol Use History / Comment(s): STARTED SMOKING AT AGE 17, QUIT 2019, SMOKED 1PPD Past Drug Use History: None Reported - Past Family History Father History Unknown: Yes Family Medical History: Diabetes Mellitus, Myocardial Infarction (HI) Additional Family Medical History / Comment(s): at 76 Mother History Unknown: Yes Family Medical History: Congestive Heart Failure (CHF), Diabetes Mellitus Additional Family Medical History / Comment(s): lived to be Brother(s) History Unknown: Yes Family Medical History: COPD, Liver Disease Daughter(s) History Unknown: Yes Medications and Allergies Home Medications Medication Instructions Recorded Confirmed Type Maureen-Chris 1 tab PO DAILY@1700 06/17/18 05/28/21 History Atorvastatin Calcium [Lipitor] 40 mg PO HS@2100 02/16/20 05/28/21 History QUEtiapine FUMARATE [SEROquel] 25 mg PO DAILY@1700 02/16/20 05/28/21 History Nicotine Polacrilex [Nicorette] 2 mg BUCCAL Q2H PRN 02/19/20 05/28/21 History Calcium Acetate [PhosLo] 1,334 mg PO TID@0800,1200,1700 11/26/20 05/28/21 History Cinacalcet HCl [Sensipar] 90 mg PO MOWEFR@0800 11/26/20 05/28/21 History DULoxetine HCL [Cymbalta] 60 mg PO DAILY@0800 11/26/20 05/28/21 History Montelukast [Singulair] 10 mg PO HS@1700 03/28/21 05/28/21 History Sodium Bicarbonate Tab 650 mg PO DAILY@1700 03/28/21 05/28/21 History Apixaban [Eliquis] 2.5 mg PO BID@0900,1700 05/16/21 05/28/21 History Cholecalciferol (Vitamin D3) 125 mcg PO DAILY@1700 05/16/21 05/28/21 History [Vitamin D3 (125 MCG = 5,000 IU)] Omalizumab [Xolair] 300 mg SQ Q28D 05/16/21 05/28/21 History Pantoprazole [Protonix] 40 mg PO DAILY@0600 05/16/21 05/28/21 History Tamsulosin [Flomax] 0.4 mg PO DAILY@1400 05/16/21 05/28/21 History amLODIPine [Norvasc] 5 mg PO BID@0900,1400 05/16/21 05/28/21 History Acetaminophen-Codeine 300-30mg 1 tab PO Q6HR PRN 05/28/21 05/28/21 History [Tylenol w/codeine #3] Cefuroxime [Ceftin] 250 mg PO BID@0800,1700 05/28/21 05/28/21 History INSULIN ASPART (NovoLOG) [NovoLOG See Protocol SQ 05/28/21 05/28/21 History (formulary)] ACHS@07,11,1630,2130 Insulin Detemir (Levemir) [Levemir] 8 unit SQ HS@2130 05/28/21 05/28/21 History Magnesium Hydroxide [Milk of 7,200 mg PO Q48H PRN 05/28/21 05/28/21 History Magnesia Concentrate] Midodrine [ProAmatine] 5 mg PO TID@0800,1200,1700 05/28/21 05/28/21 History Na Phos,M-B/Na Phos,Di-Ba [Fleet 133 ml RECTAL DAILY PRN 05/28/21 05/28/21 History Adult] bisacodyL [Dulcolax] 10 mg RECTAL Q24H PRN 05/28/21 05/28/21 History Allergies Allergy/AdvReac Type Severity Reaction Status Date / Time levofloxacin [From Levaquin] Allergy Rash/Hives Verified 05/28/21 23:09 Sulfa (Sulfonamide Allergy Rash/Hives Verified 05/28/21 23:09 Antibiotics) Surgical - Exam Vital Signs Temp Pulse Resp BP Pulse Ox 99.0 F 66 18 137/66 95 05/28/21 20:33 05/28/21 20:33 05/28/21 20:33 05/28/21 20:33 05/28/21 20:33 - General no distress, no pain - Eyes normal ocular movement, no loss of movement - ENT normal nares, normal mucosa - Respiratory normal expansion, normal respiratory effort - Abdomen Abdomen: soft, non tender Results - Labs 05/30/21 10:05 05/30/21 10:02 Abnormal Lab Results - Last 24 Hours (Table) 05/29/21 05/29/21 05/30/21 Range/Units 17:44 20:35 07:26 RBC (4.30-5.90) m/uL Hgb (13.0-17.5) gm/dL Hct (39.0-53.0) % Lymphocytes # (1.0-4.8) k/uL Sodium (137-145) mmol/L Chloride (98-107) mmol/L BUN (9-20) mg/dL Creatinine (0.66-1.25) mg/dL POC Glucose (mg/dL) 170 H 157 H 59 L (75-99) mg/dL 05/30/21 05/30/21 05/30/21 Range/Units 07:50 10:02 10:05 RBC 3.15 L (4.30-5.90) m/uL Hgb 10.1 L (13.0-17.5) gm/dL Hct 30.6 L (39.0-53.0) % Lymphocytes # 0.6 L (1.0-4.8) k/uL Sodium 129 L (137-145) mmol/L Chloride 93 L (98-107) mmol/L BUN 29 H (9-20) mg/dL Creatinine 6.80 H (0.66-1.25) mg/dL POC Glucose (mg/dL) 118 H (75-99) mg/dL 05/30/21 Range/Units 11:59 RBC (4.30-5.90) m/uL Hgb (13.0-17.5) gm/dL Hct (39.0-53.0) % Lymphocytes # (1.0-4.8) k/uL Sodium (137-145) mmol/L Chloride (98-107) mmol/L BUN (9-20) mg/dL Creatinine (0.66-1.25) mg/dL POC Glucose (mg/dL) 68 L (75-99) mg/dL Microbiology - Last 24 Hours (Table) 05/28/21 21:15 Urine Culture - Final Urine,Voided Diabetes panel 05/30/21 Range/Units 10:02 Sodium 129 L (137-145) mmol/L Potassium 4.2 (3.5-5.1) mmol/L Chloride 93 L (98-107) mmol/L Carbon Dioxide 29 (22-30) mmol/L BUN 29 H (9-20) mg/dL Creatinine 6.80 H (0.66-1.25) mg/dL Glucose 85 (74-99) mg/dL Calcium 9.3 (8.4-10.2) mg/dL Calcium panel 05/30/21 Range/Units 10:02 Calcium 9.3 (8.4-10.2) mg/dL Pituitary panel 05/30/21 Range/Units 10:02 Sodium 129 L (137-145) mmol/L Potassium 4.2 (3.5-5.1) mmol/L Chloride 93 L (98-107) mmol/L Carbon Dioxide 29 (22-30) mmol/L BUN 29 H (9-20) mg/dL Creatinine 6.80 H (0.66-1.25) mg/dL Glucose 85 (74-99) mg/dL Calcium 9.3 (8.4-10.2) mg/dL Adrenal panel 05/30/21 Range/Units 10:02 Sodium 129 L (137-145) mmol/L Potassium 4.2 (3.5-5.1) mmol/L Chloride 93 L (98-107) mmol/L Carbon Dioxide 29 (22-30) mmol/L BUN 29 H (9-20) mg/dL Creatinine 6.80 H (0.66-1.25) mg/dL Glucose 85 (74-99) mg/dL Calcium 9.3 (8.4-10.2) mg/dL Assessment and Plan Assessment: 76-year-old male with history of gross hematuria. Underwent an ultrasound on presentation that showed a possible bladder mass, versus an enlarged median lobe. Of note he had a CT scan done in November of this year that showed fairly large median lobe, no renal malignancy -We will need an outpatient cystoscopy, to further evaluate his hematuria, also to exclude a bladder mass given the finding on U/S
[2021-05-30] MEDS: SODIUM BICARBONATE TAB 650 MG TAB PO SCH (17:22)
[2021-05-30] MEDS: CHOLECALCIFEROL 25 MCG (1000 IU) TABLET PO SCH (17:22)
[2021-05-30] MEDS: QUEtiapine 25 MG TAB PO SCH (17:22)
[2021-05-30] MEDS: FOLIC ACID-VIT B COMPLEX-VIT C 1 CAP PO SCH (17:22)
[2021-05-30] MEDS: MONTELUKAST 10 MG TAB PO SCH (17:22)
[2021-05-30 17:30] LABS: Glucose,Whole Blood 88 mg/dL (75-99)
--- NOTE | 2021-05-30 17:36 | PN ---
PROGRESS NOTE Patient is seen for followup for end-stage renal disease. He had short treatment of dialysis yesterday secondary to worsening hyponatremia and volume overload. We had about 2 L of ultrafiltration yesterday and the patient was dialyzed again this morning with 2 L of ultrafiltration. He tolerated his treatment well. PHYSICAL EXAMINATION: On examination today, blood pressure was 147/68, heart rate 78 per minute, he is afebrile. Examination of the heart S1, S2. Examination of lungs decreased breath sounds at the bases. Abdomen is soft, nontender, obese. Examination of lower extremities shows edema 1+ bilaterally. The patient's PD catheter is intact. LAB: Show sodium 129, potassium 4.2, BUN 29, serum creatinine 6.8, hemoglobin 10.1. ASSESSMENT: 1. End stage renal disease on hemodialysis, currently temporarily while patient is in rehab. He is normally maintained on peritoneal dialysis. He is maintained on a Saturday, , Saturday schedule. Next treatment will be on 06/01/2021. 2. Hypervolemic hyponatremia, improved post dialysis. 3. Anemia of chronic disease. 4. Mental status changes. 5. CKD mineral bone disorder. Continue with Sensipar and current phosphate binders. Calcium 9.3. 6. Generalized debility, currently at rehab. PLAN: Next hemodialysis on 06/01/2021. MMODL / IJN: [id number] /
[2021-05-30] MEDS: ATORVASTATIN 40 MG TAB PO SCH (20:29)
[2021-05-30 20:36] LABS: Glucose,Whole Blood 90 mg/dL (75-99)
[2021-05-30] MEDS ORDERED: INSULIN DETEMIR (LEVEMIR) 100 UNIT/ML SYR SQ SCH (21:30)
[2021-05-31 04:56] VITALS: RESP 20
[2021-05-31] MEDS: PANTOPRAZOLE 40 MG TABLET PO SCH (06:09)
[2021-05-31 07:24] LABS: Glucose,Whole Blood 64 mg/dL (75-99)
[2021-05-31] MEDS: INSULIN ASPART (NovoLOG) 100 UNIT/ML VIAL SQ SCH ×2 (07:29→12:21)
[2021-05-31] MEDS: MIDODRINE 5 MG TAB PO SCH ×2 (07:33→12:22)
[2021-05-31 07:35] LABS: Glucose,Whole Blood 80 mg/dL (75-99)
[2021-05-31] MEDS: DULoxetine HCL 60 MG CAPSULE.DR PO SCH (07:36)
[2021-05-31] MEDS: APIXABAN 2.5 MG TABLET PO SCH (07:36)
[2021-05-31] MEDS: CEFDINIR 300 MG CAP PO SCH (07:36)
[2021-05-31] MEDS: CINACALCET 30 MG TAB PO SCH (07:36)
[2021-05-31] MEDS: CALCIUM ACETATE 667 MG TAB PO SCH ×2 (07:36→13:13)
[2021-05-31] MEDS: amLODIPine 5 MG TAB PO SCH ×2 (07:36→13:13)
[2021-05-31 11:31] VITALS: BP 155/66; PULSE 67; TEMP 97.4
[2021-05-31 11:44] LABS: Glucose,Whole Blood 127 mg/dL (75-99)
--- NOTE | 2021-05-31 12:11 | P.DS ---
Providers Date of admission: 05/28/21 23:15 Attending physician: Andry Stewart MD Consults: 05/28/21 22:39 Consult Physician Routine Consulting Provider: Ashly Michael Consult Reason/Comments: renal dialysis, hyponatremia Do you want consulting provider notified?: Yes 05/28/21 22:41 Consult Physician Routine Consulting Provider: Vicente Tolbert Consult Reason/Comments: hematuria Do you want consulting provider notified?: Yes Primary care physician: Kiel Wang [facility] Course: HISTORY OF PRESENT ILLNESS This is a 76-year-old patient of Dr. Wang with a past medical history significant for COPD, diabetes mellitus2, end stage renal disease on CAPD, hypertension, chronic atrial fibrillation, sick sinus syndrome status post single-chamber permanent pacemaker, BPH, hyperlipidemia, gastroesophageal reflux disease, recurrent depression, vitamin D deficiency, obstructive sleep apnea. Patient has had several hospitalizations that she air and recently was at [facility] for subacute rehab. Patient was recently admitted to the hospital from 05/23-05/26 for acute change in mental status, decreased appetite and change in blood pressure. Patient was transitioned from peritoneal dialysis to hemodialysis. And was discharged to [facility]. Patient had a Vincent catheter to check for UTI patient was brought back from [facility] due to bloody stains off his diaper and predominant hematuria at the facility. Patient was noted to have blood on her sheet multiple times at the facility since there was a concern about penile injury patient was sent to the hospital. In the ER patient was noted to be afebrile pulse 66 respiratory rate 18 blood pressure 137/66. Labs were reviewed patient has a leukocytosis and 0.9 hemoglobin 10.4 hematocrit 31.2 sodium 120 chloride 85 bicarb 27 BUN 38 creatinine 7.93. Hyponatremia is likely secondary to hypovolemia. Nephrology is consulted for evaluation. Urology was consulted for hematuria. 05/30 patient examined bedside. He does have minimal bleeding spots on his diaper but no significant bleeding since his hospitalization. On evaluation of his labs patient is noted to have multiple hypoglycemic events. hyponatremia has improved after dialysis to 129 Vitals otherwise stable afebrile pulse 78 respiratory rate 21 blood pressure 147/68. Renal ultrasound suggestive 5. 2 cm mass within the bladder. Urology evaluation pending. Lantus reduced to 5 units 05/31 patient examined bedside. Denies any chest pain shortness of breath or difficulty breathing. She was noted to be hypoglycemic arm in the hospital. Lantus was discontinued vitals otherwise stable. No episodes of bleeding noted. Urology has reviewed patient's arm ultrasound results and would like to have an outpatient cystoscopy to evaluate for a bladder mass versus enlarged prostate. Continue hemodialysis at [facility]. BLAYNEID ordered PHYSICAL EXAMINATION Gen: This is a 76-year-old obese male. He is resting on stretcher and appears to be comfortable and in no acute distress. Patient's is at bedside. HEENT: Head is atraumatic, normocephalic. Pupils equal, round. Sclerae is anicteric. NECK: Supple. No JVD. No lymphadenopathy. No thyromegaly. LUNGS: Clear to auscultation. No wheezes or rhonchi. No intercostal retractions. HEART: Regular rate and rhythm. Systolic murmur. ABDOMEN: Soft. Bowel sounds are present. No masses. No tenderness. PD catheter Genitourinary : Denies duct with drainage EXTREMITIES: No pedal edema. No calf tenderness. Multiple areas of ecchymosis on extremities. NEUROLOGICAL: Patient is awake, alert and oriented x3. Cranial nerves 2 through 12 are grossly intact. ASSESSMENT AND PLAN Hyponatremia likely secondary to hypervolemia Bright red blood per penile duct with hematuria -Urology outpatient cystoscopy -Rule out bladder mass versus prostate enlargement - renal ultrasound suggestive of 5.2 cm mass in the bladder Metabolic encephalopathy secondary to hypoglycemia, improved -Patient placed on insulin scale only for now. -Lantus discontinued Severe generalized weakness, fatigue possibly related to multiple comorbidities. Discharge tomorrow or today End-stage renal disease on CAPD. Has a peritoneal dialysis -Continue sodium bicarb 650 mg daily L1 transverse vertebral fracture. -Patient to be maintained on back brace while out of bed. Chronic atrial fibrillation. - Continue eliquis, Lopressor 25 mg as directedPulse rate has been well controlled. Diabetes mellitus type II, insulin requiring uncontrolled with hypoglycemia. S1 scale only for now. COPD. Continue Singulair 10 mg by mouth at bedtime Hypertension, stable. Continue Lopressor as needed. Autonomic hypotension secondary to diabetes. Patient started on midodrine 5 mg 3 times daily. BPH. Continue Flomax 0.4 mg Obstructive sleep apnea. Continue CPAP. Hyperlipidemia. Atorvastatin 40 mg Chronic kidney disease mineral bone disorder. Continue PhosLo 1334 mg 3 times daily. Sick sinus syndrome status post single-chamber permanent pacemaker. Recurrent depression. Continue Cymbalta 60 mg daily, Seroquel 25 mg at bedtime, trazodone 50 mg at bedtime. Dementia. Continue Aricept 5 mg at bedtime. Gastroesophageal reflux disease and GI prophylaxis. Protonix. DVT prophylaxis. Eliquis. Status: Full code DISCHARGE PLAN discharge to [facility] more than 30 minutes was spent making assessment and plan and counseling the patient Plan - Discharge Summary New Discharge Prescriptions: Continue Maureen-Chris 1 tab PO DAILY@1700 QUEtiapine FUMARATE [SEROquel] 25 mg PO DAILY@1700 Atorvastatin Calcium [Lipitor] 40 mg PO HS@2100 Calcium Acetate [PhosLo] 1,334 mg PO TID@0800,1200,1700 Cholecalciferol (Vitamin D3) [Vitamin D3 (125 MCG = 5,000 IU)] 125 mcg PO DAILY@1700 amLODIPine [Norvasc] 5 mg PO BID@0900,1400 Tamsulosin [Flomax] 0.4 mg PO DAILY@1400 bisacodyL [Dulcolax] 10 mg RECTAL Q24H PRN PRN Reason: Constipation Acetaminophen-Codeine 300-30mg [Tylenol w/codeine #3] 1 tab PO Q6HR PRN PRN Reason: Pain DULoxetine HCL [Cymbalta] 60 mg PO DAILY@0800 Cinacalcet HCl [Sensipar] 90 mg PO MOWEFR@0800 Sodium Bicarbonate Tab 650 mg PO DAILY@1700 Montelukast [Singulair] 10 mg PO HS@1700 Omalizumab [Xolair] 300 mg SQ Q28D Pantoprazole [Protonix] 40 mg PO DAILY@0600 Apixaban [Eliquis] 2.5 mg PO BID@0900,1700 Na Phos,M-B/Na Phos,Di-Ba [Fleet Adult] 133 ml RECTAL DAILY PRN PRN Reason: Constipation INSULIN ASPART (NovoLOG) [NovoLOG (formulary)] See Protocol SQ ACHS@07,11,1630,2130 Midodrine [ProAmatine] 5 mg PO TID@0800,1200,1700 Magnesium Hydroxide [Milk of Magnesia Concentrate] 7,200 mg PO Q48H PRN PRN Reason: Constipation Changed Cefuroxime [Ceftin] 250 mg PO BID@0800,1700 #0 Discontinued Nicotine Polacrilex [Nicorette] 2 mg BUCCAL Q2H PRN PRN Reason: SMOKING CESSATION Insulin Detemir (Levemir) [Levemir] 8 unit SQ HS@2129 Discharge Medication List Maureen-Chris 1 tab PO DAILY@1700 06/17/18 [History] Atorvastatin Calcium [Lipitor] 40 mg PO HS@2100 02/16/20 [History] QUEtiapine FUMARATE [SEROquel] 25 mg PO DAILY@169902/16/20 [History] Calcium Acetate [PhosLo] 1,334 mg PO TID@0800,1200,1700 11/26/20 [History] Cinacalcet HCl [Sensipar] 90 mg PO MOWEFR@0811/26/20 [History] DULoxetine HCL [Cymbalta] 60 mg PO DAILY@0811/26/20 [History] Montelukast [Singulair] 10 mg PO HS@169903/28/21 [History] Sodium Bicarbonate Tab 650 mg PO DAILY@169903/28/21 [History] Apixaban [Eliquis] 2.5 mg PO BID@0900,1700 05/16/21 [History] Cholecalciferol (Vitamin D3) [Vitamin D3 (125 MCG = 5,000 IU)] 125 mcg PO DAILY@169905/16/21 [History] Omalizumab [Xolair] 300 mg SQ Q28D 05/16/21 [History] Pantoprazole [Protonix] 40 mg PO DAILY@0600 05/16/21 [History] Tamsulosin [Flomax] 0.4 mg PO DAILY@1400 05/16/21 [History] amLODIPine [Norvasc] 5 mg PO BID@0900,1400 05/16/21 [History] Acetaminophen-Codeine 300-30mg [Tylenol w/codeine #3] 1 tab PO Q6HR PRN 05/28/21 [History] INSULIN ASPART (NovoLOG) [NovoLOG (formulary)] See Protocol SQ ACHS@07,11,1630,2130 05/28/21 [History] Magnesium Hydroxide [Milk of Magnesia Concentrate] 7,200 mg PO Q48H PRN 05/28/21 [History] Midodrine [ProAmatine] 5 mg PO TID@0800,1200,1700 05/28/21 [History] Na Phos,M-B/Na Phos,Di-Ba [Fleet Adult] 133 ml RECTAL DAILY PRN 05/28/21 [ History] bisacodyL [Dulcolax] 10 mg RECTAL Q24H PRN 05/28/21 [History] Cefuroxime [Ceftin] 250 mg PO BID@0800,1700 #0 05/31/21 [Rx] Follow up Appointment(s)/Referral(s): Subhash Infante MD [STAFF PHYSICIAN] - 06/29/21 11:00 am Kiel Wang DO [Primary Care Provider] - 1-2 days Discharge Disposition: TRANSFER TO SNF/ECF
[2021-05-31 13:10] LABS: Basophils # (A) 0.1 k/uL (0-0.2); Basophils % (A) 1 %; Eosinophils # (A) 0.3 k/uL (0-0.7); Eosinophils % (A) 4 %; HCT 35.1 % (39.0-53.0); HGB 11.4 gm/dL (13.0-17.5); Hypochromasia Slight; Lymphocytes # (A) 0.7 k/uL (1.0-4.8); Lymphocytes % (A) 8 %; MCH 32.3 pg (25.0-35.0); MCHC 32.4 g/dL (31.0-37.0); MCV 99.7 fL (80.0-100.0); Mean Platelet Volume 8.2; Monocytes # (A) 0.6 k/uL (0-1.0); Monocytes % (A) 8 %; Neutrophils # (A) 6.5 k/uL (1.3-7.7); Neutrophils % (A) 78 %; Platelet Count 275 k/uL (150-450); RBC 3.52 m/uL (4.30-5.90); WBC 8.3 k/uL (3.8-10.6)
[2021-05-31] MEDS: TAMSULOSIN 0.4 MG CAP.ER.24H PO SCH (13:13)
[2021-05-31 13:19] LABS: ALT 17 U/L (4-49); AST 31 U/L (17-59); African American GFR (CKD) 10 (>60 ml/min/1.73 sqM); Albumin 2.8 g/dL (3.5-5.0); Albumin/Globulin Ratio 0.9; Alkaline Phosphatase 278 U/L (38-126); Anion Gap 9 mmol/L; Blood Urea Nitrogen 21 mg/dL (9-20); Calcium 9.4 mg/dL (8.4-10.2); Carbon Dioxide 29 mmol/L (22-30); Chloride 92 mmol/L (98-107); Globulin 3.1 g/dL; Glucose 126 mg/dL (74-99); Non-African American GFR(CKD) 9 (>60 ml/min/1.73 sqM); Sodium 130 mmol/L (137-145); Total Protein 5.9 g/dL (6.3-8.2)
--- NOTE | 2021-05-31 18:07 | PN ---
PROGRESS NOTE Patient is seen for followup for end-stage renal disease, currently maintained on Saturday, , Saturday schedule for hemodialysis. The patient was admitted to the hospital with hematuria. Patient has been evaluated by Urology. He was found to have a possible bladder mass and the plans are for cystoscopy down the road. This is planned as outpatient. EXAMINATION: Today patient is comfortable. Blood pressure was 155/66, heart rate 67 per minute, he is afebrile. Examination of the heart S1, S2. Examination of the lungs, bilateral breath sounds are heard. Abdomen is soft, nontender. Examination of lower extremities shows no significant edema. SPRAYER MACHINE exam grossly intact. LAB: Show hemoglobin 11.4, sodium 130, potassium 4.0. ASSESSMENT: 1. End-stage renal disease on hemodialysis on a Saturday, , Saturday schedule. The patient is normally maintained on peritoneal dialysis and is on temporary hemo while in rehab. 2. Hematuria with ultrasound showing bladder mass with plans for cystoscopy as outpatient. 3. Chronic kidney disease mineral bone disorder. 4. Generalized debility. PLAN: Hemodialysis in a.m. Patient could be discharged and follow up as outpatient with Urology for cystoscopy. MMODL / IJN: [id number] /
== END 2021-05-31 13:40 ==
LOC: EC 20:30 → 5NMEDONC 23:15
PROVIDERS: ADMIT Internal Medicine; ATTEND Internal Medicine
DX: R31.0 Gross hematuria (principal); E87.1 Hypo-osmolality and hyponatremia; G93.41 Metabolic encephalopathy; I12.0 Hypertensive chronic kidney disease with stage 5 chronic kidney disease or end stage renal disease; N18.6 End stage renal disease; E11.22 Type 2 diabetes mellitus with diabetic chronic kidney disease; E11.649 Type 2 diabetes mellitus with hypoglycemia without coma; I95.89 Other hypotension; E87.70 Fluid overload, unspecified; N39.0 Urinary tract infection, site not specified; I48.20 Chronic atrial fibrillation, unspecified; I49.5 Sick sinus syndrome; F03.90 Unspecified dementia, unspecified severity, without behavioral disturbance, psychotic disturbance, mood disturbance, and anxiety; N40.0 Benign prostatic hyperplasia without lower urinary tract symptoms; J44.9 Chronic obstructive pulmonary disease, unspecified; M89.9 Disorder of bone, unspecified; E78.5 Hyperlipidemia, unspecified; F33.9 Major depressive disorder, recurrent, unspecified; D63.8 Anemia in other chronic diseases classified elsewhere; R53.81 Other malaise; L89.899 Pressure ulcer of other site, unspecified stage; E55.9 Vitamin D deficiency, unspecified; K21.9 Gastro-esophageal reflux disease without esophagitis; G47.33 Obstructive sleep apnea (adult) (pediatric); D72.829 Elevated white blood cell count, unspecified; S32.019A Unspecified fracture of first lumbar vertebra, initial encounter for closed fracture; X58.XXXA Exposure to other specified factors, initial encounter; E66.9 Obesity, unspecified; Z68.32 Body mass index [BMI] 32.0-32.9, adult; Z20.822 Contact with and (suspected) exposure to COVID-19; Z79.01 Long term (current) use of anticoagulants; Z79.4 Long term (current) use of insulin; Z96.41 Presence of insulin pump (external) (internal); Z79.899 Other long term (current) drug therapy; Z88.1 Allergy status to other antibiotic agents; Z88.2 Allergy status to sulfonamides; Z90.49 Acquired absence of other specified parts of digestive tract; Z95.0 Presence of cardiac pacemaker; Z99.2 Dependence on renal dialysis; Z87.891 Personal history of nicotine dependence; Z82.5 Family history of asthma and other chronic lower respiratory diseases; Z83.3 Family history of diabetes mellitus; Z82.49 Family history of ischemic heart disease and other diseases of the circulatory system; Z83.79 Family history of other diseases of the digestive system
CPT/HCPCS: 99285; 36415; 97162; 97166; 80053 ×3; 80048; 82550; 83735; 85025 ×4; 85730; 82272; 81001; 87086; 87635; 76770; G0257 ×2; G0378 ×3; 90935